=== PATIENT | male | born 1985 | race Caucasian/White ===

== ENCOUNTER 2022-02-10 13:01 | Emergency (ER) | payer MEDICAID, SELFPAY ==
[2022-02-10 13:07] VITALS: BP 130/85; PULSE 86; RESP 16; TEMP 37.1; O2SAT 98
[2022-02-10 13:30] VITALS: BP 124/76; PULSE 85; RESP 16; O2SAT 97
[2022-02-10 14:00] VITALS: BP 135/82; PULSE 82; RESP 16; O2SAT 98
--- NOTE | 2022-02-10 14:03 | ED.GENADULT ---
HPI - General Adult General Chief complaint: High Blood Pressure Stated complaint: High Blood Pressure,Headache,Short of Breath Time Seen by Provider: 02/10/22 13:16 History of Present Illness HPI narrative: This 36-year-old male comes in reporting elevated blood pressure from a dentist appointment that he had recently. He states that he has had a headache also and reports lots of anxiety. He arrives here with the initial blood pressure of a systolic value of 130. Repeat check shows a level of 124. He states that he is taking clonazepam 2 mg twice daily. He has been on this medicine for a long time and states that he use to take 2 mg 3 times daily. He does report lots of anxiety. He has also had an addiction to opiates in the past but denies using any of these now and also over the past few years. He does have an appointment with his primary physician next week and he has an appointment with a psychiatrist further out. Related Data Home Medications Medication Instructions Recorded Confirmed clonazepam 2 mg tablet 2 mg PO TID 02/10/22 02/10/22 pantoprazole 40 mg tablet,delayed 40 mg PO DAILY 02/10/22 02/10/22 release Previous Rx's Medication Instructions Recorded escitalopram oxalate 10 mg tablet 10 mg PO DAILY #30 tabs 02/10/22 (Lexapro) Allergies Allergy/AdvReac Type Severity Reaction Status Date / Time No Known Allergies Allergy Verified 02/10/22 13:14 Review of Systems Status of ROS: Reports: 10 or more systems reviewed and unremarkable except as noted in History and below Narrative: Constitutional: No fevers, no weight gain or loss. Eyes: No discharge. No vision changes. HENT: No congestion, no sore throat, no ear pain. Cardiovascular: No chest pain, no palpitations. Respiratory: No shortness of breath, no wheezes, no cough. Gastrointestinal: No abdominal pain, no vomiting, no diarrhea. Genitourinary: No dysuria, no hematuria. Musculoskeletal: Normal range of motion. Skin: No rashes, no pruritis. Neurological: No dizziness, weakness, sensory change, speech change. Endo/Heme/Allergies: No bruising or bleeding. No polydipsia. Pysch: no suicidality, no insomnia. He reports lots of anxiety. All other systems reviewed and are negative. PFSH PFSH Social History Smoking Status: Never smoker Do you use any of these nicotine containing products: None How often do you have a drink containing alcohol: never AUDIT-C Alcohol total score: 0 Non-prescribed substance use: denies use service: No Exam Narrative: Exam Narrative: Constitutional: Well-developed, well-nourished, no acute distress. HEENT: Normocephalic, atraumatic. Neck: Normal range of motion. Nontender. Supple. Heart: Intact distal pulses. Lungs: No chest discomfort. No wheezes, rhonchi, or rales. Abdomen: Nontender. Back: Normal range of motion. Extremities: Normal range of motion. No injury. Skin: Intact. No rash. Warm. No erythema or pallor. Neurologic: No altered sensation. No weakness. Alert and oriented. Psychiatric: No suicidality. No insomnia. He has anxiety symptoms that are sufficiently improved when taking his clonazepam 2 mg dose. Nursing notes and vitals signs are reviewed. Const: Vital Signs, click to edit/add: Vital Signs - 24 hr 02/10/22 13:07 02/10/22 13:30 Temperature 98.7 F Pulse Rate [Pulse Oximeter] 86 85 Respiratory Rate 16 16 Blood Pressure [[facility]] 130/85 124/76 Pulse Oximetry 98 97 Oxygen Delivery Me thod Room Air Room Air Course Vital Signs Vital signs: Initial Vital Signs Temperature 98.7 F 02/10/22 13:07 Temperature Source Temporal Artery Scan 02/10/22 13:07 Pulse Rate 86 02/10/22 13:07 Pulse Rhythm 02/10/22 13:07 Pulse Strength 3+ Normal 02/10/22 13:07 Respiratory Rate 16 02/10/22 13:07 Blood Pressure 130/85 02/10/22 13:07 Blood Pressure Mean 100 02/10/22 13:07 Blood Pressure Position Supine 02/10/22 13:07 Pulse Oximetry 98 02/10/22 13:07 Oxygen Delivery Method 02/10/22 13:07 Vital Signs Temperature 98.7 F 02/10/22 13:07 Pulse Rate 86 02/10/22 13:07 Respiratory Rate 16 02/10/22 13:07 Blood Pressure 130/85 02/10/22 13:07 Pulse Oximetry 98 02/10/22 13:07 Oxygen Delivery Method 02/10/22 13:07 Temperature 98.7 F 02/10/22 13:07 Pulse Rate 85 02/10/22 13:30 Respiratory Rate 16 02/10/22 13:30 Blood Pressure 124/76 02/10/22 13:30 Pulse Oximetry 97 02/10/22 13:30 Oxygen Delivery Method 02/10/22 13:30 Medical Decision Making MDM Narrative Medical decision making narrative: This patient comes in primarily with concern about elevated blood pressure as 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 This triggered his anxiety somewhat. Additionally he states that he had not taken his clonazepam and wonders if the increased anxiety related to that may also have caused his blood pressure to increase. I did describe diagnostic criteria for establishing add diagnosis of hypertension and stated that his blood pressure is spiking up at times but his baseline pressures are normal as evidenced here. I then had discussion amounting to 15 or 20 minutes regarding issues of anxiety and depression. I encouraged him to slowly wean off of the clonazepam as he is on rather large doses. He has already decreased by 2 mg daily. He is not on any other antidepressant medication. He does have an appointment with his primary physician next week so I did prescribe Lexapro which can be started and reviewed along the way by his primary doctor. He understands that another strategy may be a better fit for him but at least this will give some information along that way. Discharge Plan Discharge Clinical Impression: Anxiety Patient Disposition: Home, Self-Care Condition: Stable Additional Instructions: Take medication as prescribed. Follow up with MD appointments as scheduled or return if worsening. Prescriptions: New escitalopram oxalate [Lexapro] 10 mg tablet 10 mg PO DAILY Qty: 30 2RF No Action clonazepam 2 mg tablet 2 mg PO TID Label Comments: TAKE ONE TABLET BY MOUTH TWICE DAILY pantoprazole 40 mg tablet,delayed release (DR/EC) 40 mg PO DAILY Label Comments: TAKE ONE TABLET BY MOUTH ONCE DAILY Stand Alone Forms: [employer] Info Instructions
--- NOTE | 2022-02-10 14:18 | PC.NURSE ---
Patient was discharged. New prescription for Lexapro sent into [facility]. BP was much improved and headache and shortness of breath was gone when patient left. Has follow up with PCP next week. All questions answered and patient left ambulatory.
--- OUTSIDE RECORDS SUMMARY | 2022-02-10 14:39 | XMS_ITS | Encounter Summary ---
:1985 Author Organization [facility] Address [address] [place] [address] Care Team Providers Name Role Phone Elsewhere, Pcp Primary Care Provider Unavailable Reason for Visit Reason Comments Hand Pain Med Refill Encounter Details Date Type Department Care Team Description 08/21/2021 Nurse Triage Department of [facility] Charity Biggs nd Pain; Med Refill Medicine, Roger Chatman R.N. [facility], [facility], [place] [address] [place] [address] Social History Tobacco Use Types Packs/Day Years Used Date Smoking Tobacco: Former Cigarettes 1 Quit : 03/15/2017 Smokeless Tobacco: Former Chew Alcohol Use Standard Drinks/Week Comments Yes 0 (1 standard drink = 0.6 oz pure alcoho l) OCCASIONAL Sex Assigned at Date Recorded Male 10/17/2017 10:58 AM CDT documented as of this encounter Miscellaneous Notes Telephone Encounter - Charity Biggs R.N. - 08/21/2021 11:22 AM CDT Chief Complaint / Reason for Call Patient is a 35 y.o. male calling regarding Hand Pain and Med Refill. Assessment Concern: Pain med ([place]) refill, f/u visit with Dr. Mccullough in Orthopedics Calling to request: To speak with the person senior communications specialist for Orthopedics The recommended disposition is Other. He broke his left hand and had carpal tunnel surgery on both hands. Two fingers on his left hand lock up. He is requesting to speak with Orthopedics senior communications specialist. Advised to call during business hours to schedule an appointment. Patient was warm transferred to [facility] for further assistancegetting in touch with orthopedics. . documented in this encounter Plan of Treatment Not on filedocumented as of this encounter Visit Diagnoses Not on filedocumented in this encounter Care Teams Jr. Java Developer Relationship Specialty Start Date End Date Elsewhere, Pcp PCP - General Family Medicine 11/04/19 documented as of this encounter
--- OUTSIDE RECORDS SUMMARY | 2022-02-10 14:39 | XMS_ITS | Clinical Summary ---
:1985 Author Organization [facility] Address [address] [place] [id number] Care Team Providers Name Role Phone Elsewhere, Pcp Primary Care Provider Unavailable Source Comments Patient records contain information from all sites at [facility]. For routine questions regarding patient records, call [phone] during business hours, M-F 8:00 AM - 5:00 PM Central Time. Record requests for emergency care only can be directed to [phone] at any time.[facility] Allergies No known active allergies Medications Medication Sig Dispensed Refills Start Date End Date Status mometasone (NASONEX) 50 Administer 2 0 08/19/2013 Active mcg/actuation nasal sprays into each spray nostril daily. amphetamine-dextroamphe Take 30 mg by 0 03/09/2018 Active tamine (ADDERALL XR) 30 mouth daily. mg 24 hr capsule Paroex Oral Rinse 0.12 RINSE WITH 1 0 02/20/2019 Active % mouthwash CAPFUL FOR 30 SECONDS TWICE DAILY famotidine (PEPCID) 20 Take 20 mg by 0 03/20/2019 Active mg tablet mouth 2 (two) times a day. clonazePAM (KlonoPIN) 2 Take 1 tablet (2 28 tablet 1 0 Active mg tablet mg total) by mouth 2 (two) times a day for 14 days. clonazePAM (KlonoPIN) 2 Twice A Day 0 08/27/2010 Active mg tablet pantoprazole (PROTONIX) Take 40 mg by 0 Active 40 mg EC tablet mouth every morning before breakfast. ibuprofen Take 800 mg by 0 02/04/2021 Acti ve (ADVIL,MOTRIN) 800 mg mouth 3 (three) tablet times a day as needed. Pain Reliever Extra TAKE 1 TO 2 0 02/04/2021 Active Strength 500 mg tablet TABLETS(500-1000M G) BY MOUTH EVERY SIX HOURS NEEDED QNASL 80 mcg/actuation INHALE 1 SPRAY 0 03/17/2021 Active nasal spray INTO AFFECTED NOSTRIL(S) ONCE DAILY Ear Wax Removal Drops PLACE 5 DROPS 0 05/11/2021 Active 6.5 % otic solution INTO BOTH EARS 2 TIMES DAILY. ondansetron ODT PLACE 1 TABLET (4 0 05/11/2021 Active (ZOFRAN-ODT) 4 mg MG) ON THE TONGUE disintegrating tablet EVERY 8 HOURS IF NEEDED FOR NAUSEA/VOMITING. cholecalciferol, Take 1,000 Units 0 05/04/2021 Active vitamin D3, 25 mcg by mouth. (1,000 Unit) tablet NON FORMULARY Take 1 tablet by 0 Active mouth daily. HYDROcodone-acetaminoph Take 1 tablet by 15 tablet 0 2 Active en (NORCO) 5-325 mg per mouth every 6 tabletIndications: (six) hours as Prolonged Acute needed for pain Pain/Traumatic Injury Indication: Prolonged Acute Pain/Traumatic Injury. HYDROcodone-acetaminoph Take 1 tablet by 30 tablet 0 2 Active en (NORCO) 5-325 mg per mouth every 6 tabletIndications: (six) hours as Prolonged Acute needed for pain Pain/Traumatic Injury Indication: Prolonged Acute Pain/Traumatic Injury. hydrOXYzine (ATARAX) 25 TAKE 1 TABLET (25 0 10/07/19 22 Active mg tablet MG) BY MOUTH EVERY 6 HOURS IF NEEDED FOR SEASONAL ALLERGIES. fluorometholone (FML) INSTILL ONE DROP 0 09/13/2021 Active 0.1 % ophthalmic INTO RIGHT EYE 4 suspension TIMES A DAY FOR 1 WEEK, FOLLOWED BY 2 TIMES A DAY FOR 1 WEEK cyclobenzaprine TAKE ONE TABLET 0 10/06/2021 Active (FLEXERIL) 10 mg tablet BY MOUTH DAILY NEEDED FOR MUSCLE SPASM. ProAir HFA 90 INHALE 1-2 PUFFS 0 10/06/2021 Active mcg/actuation inhaler BY MOUTH EVERY 4 HOURS IF NEEDED FOR SHORTNESS OF BREATH. ibuprofen Take 1 tablet 30 tablet 1 10/20/2021 Activ e (ADVIL,MOTRIN) 800 mg (800 mg total) by tablet mouth every 8 (eight) hours as needed for pain. Active Problems Problem Noted Date Preoperative Exam 05/28/2021 Carpal Tunnel Syndrome Right 05/25/2021 Carpal Tunnel Syndrome Left 05/24/2021 Posttraumatic Stress Disorder Brief 06/01/2016 Dermatitis 08/04/2013 Dermatitis Seborrheic 07/22/2013 Migraine Headache 07/17/2013 Acne 02/27/2012 Attention Deficit With Hyperactivity Disorder 04/28/19 12 Overview: ADHD Anxiety Generalized Disorder 04/28/2011 Depression Major Recurrent 12/10/2010 Overview: Recurrent major depression NOS Last Assessment & Plan: He feels he is doing well and is not katrina ing the sertraline and the nortriptyline for some time now. He is taking only the clonazepam and Add erall, this is all he needs at this time. Abuse Tobacco Smoking 03/29/2010 Sinusitis 03/29/2010 Myopia 03/10/2010 Dependence Polysubstance 09/30/2009 Overview: Polysubstance dependence, unspecified Encounters Date Type Specialty Care Team Description 11/29/2021 Clinical Communication Ophthalmology Desean Medellin M.D. from Last 3 Months Immunizations Name Administration Dates Next Due DTP 04/15/1988, 07/17/1987, 05/14/1987, 02/04 MMR 04/15/1988 Polio, Unspecified 04/15/1988, 05/14/1987, 03/02/1987 Tdap 10/18/2020, 06/28/2018, 08/21/2017, 0503/2008 Family History Medical History Relation Name Comments Glaucoma Paternal Grandmother Relation Name Status Comments Paternal Grandmother Social History Tobacco Use Types Packs/Day Years Used Date Smoking Tobacco: Former Cigarettes 1 Quit : 03/15/2017 Smokeless Tobacco: Former Chew Alcohol Use Standard Drinks/Week Comments Yes 0 (1 standard drink = 0.6 oz pure alcoho l) OCCASIONAL Sex Assigned at Date Recorded Male 10/17/2017 10:58 AM CDT Last Filed Vital Signs Vital Sign Reading Time Taken Comments Blood Pressure 115/71 05/28/2021 9:31 AM CDT Pulse 76 05/28/2021 9:31 AM CDT Temperature 36.5 ??C (97.7 ??F) 05/28/2021 9:31 AM CDT Respiratory Rate 24 03/05/2021 1:48 PM SUPERVISOR BENZENE REFINING Oxygen Saturation 98% 11/04/2019 7:48 AM CDT Inhaled Oxygen Concentration - - Weight 82.9 kg (182 lb 12.2 oz) 05/28/2021 9:31 AM CDT Height 164.2 cm (5' 4.65) 05/28/2021 9:31 AM CDT Body Mass Index 30.75 05/28/2021 9:31 AM CDT Plan of Treatment Health Maintenance Due Date Last Done Comments HIV Screening 1985 Hepatitis B Vaccines (1 of 1985 3 - 3-dose series) Hepatitis C Screening 1985 Lipid (Cholesterol) 1985 Screening COVID-19 Vaccine (#1) 06/20/1987 Depression Monitoring 06/24/2021 02/23/2021 (PHQ-9) Influenza Vaccine (#1) 2021 DTaP,Tdap,and Td Vaccines 10/18/2030 10/18/2020, 06/28/2018 , (9 - Td or Tdap) 08/21/2017, Additional history exists Pneumococcal vaccine (0-64 Aged Out No lo nger eligible years) based on patient 's age to complete this topic Care Teams Body Coverer Relationship Specialty Start Date End Date Elsewhere, Pcp PCP - General Family Medicine 11/04/19
--- OUTSIDE RECORDS SUMMARY | 2022-02-10 14:39 | XMS_ITS | Encounter Summary ---
:1985 Author Organization [facility] Address [address] [place] [address] Care Team Providers Name Role Phone Elsewhere, Pcp Primary Care Provider Unavailable Reason for Referral Outpatient (Routine) - Pending Review Specialty Diagnoses / Procedures Referred By Contact Refer red To Contact Diagnoses Carpal Tunnel Syndrome Right Zee Arreguin, Procedures suture removal P.A.-C. [address] [place] [phone] Referral ID Status Reason Start Date Expiration Date Visits V isits Requested Authorized [id number] Pending 07/02/2021 07/02/2022 1 1 Review Reason for Visit Reason Comments Carpal Tunnel Post-op Follow-up Outpatient (Routine) - Closed Specialty Diagnoses / Procedures Referred By Contact Refer red To Contact Orthopedic Surgery Zee Arreguin, [facility] P.A.-C. [address] [place] [phone] [phone] Referral ID Status Reason Start Date Expiration Date Visits Requ ested Visits Authorized [id number] Closed 05/25/2021 05/25/2022 1 1 Encounter Details Date Type Department Care Team Description 07/02/2021 Office Visit Department of Zee Arreguin Carpal Kamari mary lou Syndrome Orthopedic Surgery in [place], PLyric-CGerman Right (Primary Dx) [place], [place] [address] [place] [phone] Social History Tobacco Use Types Packs/Day Years Used Date Smoking Tobacco: Former Cigarettes 1 Quit : 03/15/2017 Smokeless Tobacco: Former Chew Alcohol Use Standard Drinks/Week Comments Yes 0 (1 standard drink = 0.6 oz pure alcoho l) OCCASIONAL Sex Assigned at Date Recorded Male 10/17/2017 10:58 AM CDT documented as of this encounter Progress Notes Zee Arreguin P.A.-C. - 07/02/2021 9:15 AM CDT SUBJECTIVE Pain reported: REASON FOR FOLLOW-UP Tarik Adhikari is a 35 y.o. male who presents for follow-up of No chief complaint on file. and is under the care of ELSEWHERE, PCP. HISTORY OF PRESENT ILLNESS Patient is seen today for 2 week postoperative visit of a right carpal tunnel release by Dr. Mccullough on June 21. He is doing fairly well, does have some residual numbness in his long and index finger. He is not currently working, and not taking anything more than Tylenol and ibuprofen for pain. PHYSICAL EXAM Ortho Exam Inspection of the right palm shows a well-healed surgical incision sutures removed without difficulty no erythema or drainage. Mild edema and postsurgical ecchymosis. Fingers are sensate though slightly decreased at the tip of the long finger. Capillary refills less than 2 seconds. ASSESSMENT / PLAN #1 Carpal Tunnel Syndrome Right Patient can work on scar massage and desensitization, he is advised to avoid anything that causes pain such as heavy grasping gripping pushing or pulling or anything with vibration for the next 4 weeks. He will follow up with Dr. Mccullough in 1 month. All questions were answered. documented in this encounter Procedure Notes Gregg Anguiano - 07/02/2021 9:15 AM CDTAssociated Order(s): suture removal Post-Procedure Diagnose(s): Carpal Tunnel Syndrome Right Suture removal Date/Time: 07/02/2021 10:06 AM Performed by: Gregg Anguiano Authorized by: Zee Arreguin P.A.-C. PROCEDURE DETAILS Wound appearance: No signs of infection, good wound healing, clean, good approximation of wound edges and wound edges Number of sutures removed: 5 CONSENT Consent obtained: verbal Consent given by: patient [employer] All relevant documentation and testing were reviewed and available. All required blood products, implants, devices and or special equipment were made available as applicable. Pre-procedure verificationwas conducted and the correct site was marked if required. A fire risk assessment was done as applicable. The procedural time-out was conducted prior to performing the procedure and confirmed in a procedural pause. PRE PROCEDURE DETAILS Sutures were placed at [place] facility: no Indicaton: scheduled suture removal SEDATION / ANESTHESIA Anesthesia method: none POST PROCEDURE DETAILS Procedure completed successfully: yes Post-removal: Steri-Strips applied COMMENTS All sutures removed, patient tolerated well. The proximal part of the incision closest to the wrist slightly. Steri-strips applied. No concerns at this time. documented in this encounter Miscellaneous Notes Addendum Note - Zee Arreguin P.A.-C. - 07/02/2021 9:15 AM CDT Addended by: ZEE ARREGUIN on: 07/02/2021 06:43 PM Modules accepted: Orders Addendum Note - Zee Arreguin P.A.-C. - 07/02/2021 9:15 AM CDT Addended by: ZEE ARREGUIN on: 07/02/2021 07:51 PM Modules accepted: Orders documented in this encounter Plan of Treatment Not on filedocumented as of this encounter Procedures Procedure Name Priority Date/Time Associated Diagnosis Comme nts SUTURE REMOVAL Routine 07/02/2021 10:06 AM Carpal Tunnel Resul ts for this CDT Syndrome Right procedure are in the results section . documented in this encounter Results SUTURE REMOVAL (07/02/2021 10:06 AM CDT) Narrative [facility] - 07/02/2021 10:06 AM CDT Gregg Anguiano ? 07/02/2021 10:08 AM Suture removal Date/Time: 07/02/2021 10:06 AM Performed by: Gregg Anguiano Authorized by: Zee Arreguin P.A.- C. PROCEDURE DETAILS Wound appearance: ??No signs of infectio n, good wound healing, clean, good approximation of wound edges and wound e dges Number of sutures removed: ??5 CONSENT Consent obtained: verbal Consent given by: patient [employer] All relevant documentation and testing w ere reviewed and available. All required blood products, implants, devic es and or special equipment were made available as applicable. Pre-proced ure verification was conducted and the correct site was marked if required. A fire risk assessment was done as applicable. The procedural time-out w as conducted prior to performing the procedure and confirmed in a procedu ral pause. PRE PROCEDURE DETAILS Sutures were placed at [place] facility: no ?? Indicaton: scheduled suture removal ?? SEDATION / ANESTHESIA Anesthesia method: none POST PROCEDURE DETAILS Procedure completed successfully: yes ?? Post-removal: ??Steri-Strips applied COMMENTS All sutures removed, patient tolerated w ell. The proximal part of the incision closest to the wrist slightly. Steri-strips applied. No concerns at this time. Zee Arreguin P.A.-C. PROCEDURE/MINOR SURGICAL ORD ERABLES Performing Organization Address City/State/ZIP Code Phon e Number MMODAL [facility] NA documented in this encounter Visit Diagnoses Diagnosis Carpal Tunnel Syndrome Right - Primary documented in this encounter Care Teams Hollow Core Door Frame Assembler Relationship Specialty Start Date End Date Elsewhere, Pcp PCP - General Family Medicine 11/04/19 documented as of this encounter
--- OUTSIDE RECORDS SUMMARY | 2022-02-10 14:39 | XMS_ITS | Clinical Summary ---
:1985 Author Organization [facility] [place] [address] Care Team Providers Name Role Phone Dilcia Tate MD Primary Care Provider Faviola Machuca STUDIO DESIGNER Unavailable Unavailable Allergies No known active allergies Medications Medication Sig Dispensed Refills Start Date End Date Status clonazePAM (KLONOPIN) Take 1 tablet by 36 tablet 2 08/27/2019 Active 1 mg mouth up to BID and tabletIndications: 1/2 tablet by mouth Anxiety once daily dextroamphetamine-amph Take 30 mg by mouth 0 Active etamine (ADDERALL XR) once daily 30 mg Extended-Release capsule beclomethasone Inhale 160 mcg into 3 Each 0 08/04/2020 Active dipropionate (QNASL) affected nostril(s) 80 mcg/actuation once daily. HFAAIndications: Chronic rhinitis carbamide peroxide Place 5 Drops into 60 mL 5 05/11/2021 Active (DEBROX) 6.5 % otic both ears 2 times solutionIndications: daily. Bilateral hearing loss due to cerumen impaction ibuprofen (ADVIL; Take 800 mg by 0 Active MOTRIN) 800 mg tablet mouth every 6 hours if needed. pantoprazole TAKE ONE TABLET BY 90 Tablet 2 06/16/2021 Active (PROTONIX) 40 mg MOUTH ONCE DAILY delayed-release tabletIndications: Gastroesophageal reflux disease, unspecified whether esophagitis present albuterol HFA Inhale 1-2 Puffs by 1 Each 0 10/06/2021 Active (PRO-AIR; VENTOLIN; mouth every 4 hours PROVENTIL) 90 if needed for mcg/actuation Shortness Of inhalerIndications: Breath. Dyspnea, unspecified type acetaminophen Max acetaminophen 30 Tablet 0 12/15/2021 Active (TYLENOL) 325 mg dose: 4000mg in 24 tablet hrs. PRN hydrOXYzine HCL Take 1-2 Tablets 30 Tablet 2 12/15/2021 Active (ATARAX) 25 mg (25-50 mg) by mouth tabletIndications: every 6 hours if Seasonal allergies needed (seasonal allergies). gabapentin enacarbil Take 2 Tablets (600 30 Tablet 5 2 Active 300 mg mg) by mouth at TbERIndications: bedtime. Restless leg syndrome cyclobenzaprine Take 1 Tablet (10 30 Tablet 0 12/15/2021 Active (FLEXERIL) 10 mg mg) by mouth 3 tabletIndications: times daily if Chronic midline low needed for Muscle back pain with Spasm. Use daily as left-sided sciatica needed for muscle spasm ondansetron (ZOFRAN PLACE 1 TABLET (4 10 Tablet 0 01/10/2022 Active ODT) 4 mg MG) ON THE TONGUE disintegrating EVERY 8 HOURS IF tabletIndications: NEEDED FOR Nausea NAUSEA/VOMITING. Active Problems Problem Noted Date Personality disorder, unspecified 05/11/2021 Fatty liver 02/11/2021 Anxiety 11/10/2017 Mild episode of recurrent major depressive disorder Therapeutic drug monitoring 09/19/2017 Controlled substance agreement signed 07/21/2016 Overview: Signed 06/01/16 Faviola Machuca / psychiat eugene Attention deficit hyperactivity disorder (ADHD) 2016 Post traumatic stress disorder 06/01/2016 Microscopic hematuria 04/05/2016 Uncomplicated opioid dependence 01/08/2015 Other acne 06/01/2006 Irritable bowel syndrome 06/01/2006 Resolved Problems Problem Noted Date Resolved Date Moderate episode of recurrent major depressive disorder 05/0511/10/2017 Attention deficit hyperactivity disorder (ADHD) 05/25/2016 06/01/2016 Attention deficit hyperactivity disorder (ADHD), 02/03/2015 06/01/2016 predominantly inattentive type Anxiety 02/03/2015 06/01/2016 Bipolar affective disorder 01/08/2015 06/01/2016 Cellulitis 12/27/2011 07/11/2015 Dysuria 06/13/2008 07/11/2015 Bipolar disorder, unspecified 10/09/2007 01/08/2015 Opioid type dependence, unspecified 11/07/200607/2014 Encounters Date Type Specialty Care Team Description 01/07/2022 Refill Dilcia Tate MD Refil l Request (Ondansetron) 12/15/2021 Office Visit Votel, Wade aPz, Rachel rns (Legs constantly MD move at night i n bed, uses a weighted blanke t); Ear Problem (Wants checked for wax); Medicatio n Management (refills) 12/15/2021 Telephone Votel, Wade Paz, Prior Authorization (gabapentin edmund carbil 300 mg TbER) 12/15/2021 Telephone Votel, Wade Paz, Medic ation Problem (cyclobenzaprin e (FLEXERIL) 10 mg tablet/ga bapentin enacarbil 300 m g TbER ) 12/15/2021 Travel from Last 3 Months Immunizations Name Administration Dates Next Due DTP 04/15/1988, 07/17/1987, 05/14/1987, 02/04 MMR 04/15/1988 Oral Polio Vaccine 04/15/1988, 05/14/1987, 03/02/1987 Tdap 10/18/2020, 06/28/2018, 08/21/2017, 03/2008 Family History Medical History Relation Name Comments Allergies Sister 2 allergic to cold Relation Name Status Comments Brother Alive Father Alive Maternal Grandfather (Age old age) Mother Alive Paternal Grandfather (Age heart attack) Sister 1 Alive Sister 2 Social History Tobacco Use Types Packs/Day Years Used Date Former Smoker Cigarettes 0.1 4 Quit: 03/06/19 18 Smokeless Tobacco: Former User Snuff, Chew Tobacco Cessation: Counseling Given: Yes Comments: Ocassional Alcohol Use Standard Drinks/Week Comments Yes 0 (1 standard drink = 0.6 oz pure alcoho l) occassional Alcohol Habits Answer Date Recorded How often do you have a drink containing alcohol? 2-4 times a month 01/31/2020 How many drinks containing alcohol do you have on a 5 or 6 01/31/2020 typical day when you are drinking? How often do you have six or more drinks on one Not asked occasion? Comment: occassional 11/30/2020 Sex Assigned at Date Recorded Not on file Obstetrics History Last Filed Vital Signs Vital Sign Reading Time Taken Comments Blood Pressure 131/83 12/15/2021 10:08 AM CDT Pulse 59 12/15/2021 10:08 AM CDT Temperature 36.3 ??C (97.4 ??F) 06/21/2021 10:58 AM CDT Respiratory Rate 16 06/21/2021 11:30 AM CDT Oxygen Saturation 100% 12/15/2021 10:08 AM CDT Inhaled Oxygen Concentration - - Weight 80.4 kg (177 lb 3.2 oz) 12/15/2021 10:08 AM CDT Height 165.1 cm (5' 5) 12/15/2021 10:08 AM CDT Body Mass Index 29.49 12/15/2021 10:08 AM CDT Plan of Treatment Upcoming Encounters Date Type Specialty Care Team Description 02/17/2022 Office Visit Dilcia Tate MD [address] [facility] [address] [place], [place] [address] (Wo rk) Health Maintenance Due Date Last Done Comments COVID-19 vaccine series (#1) 06/20/1987 Influenza for age 9-49 11/04/2021 Lipids for age 35-44 2021 BMI (ht and wt on same day) for 12/15/2022 12/15/2021, 01/05, age 18+ 01/07/2021, Additional history exists Depression screening for age 12+ 12/15/2022 12/15/2021, 02/2022, 12/15/2021, Additional history exists Tetanus booster 10/18/2030 10/18/2020, 06/28/2018, 08/21/2017, Additional history exists Hepatitis C screening for age Completed 08/04/2020, 2019, 18-79 06/27/2016, Additional history exists Tdap Completed 10/18/2020, 06/28/2018, 08/21/2017, Additional history exists HIV for age 15-65 Completed 11/30/2020, 08/04/2020, 01/31/2020, Additional history exists Results Not on filefrom Last 3 Months Insurance Payer Benefit Plan / Subscriber ID Effective Dates Phone Addre ss Type Group CONSUELO CORDERO MA [id number] 2013-Present [address] [place] [address] [facility] [id number] 2021-Present [address] [place] [address] [place] [id number] 2011-Present [address] [address] [place] [address] INMATE,RICE Inmate Billing [birth year][address] [place] [address] [facility] (Home) [place] [address] Tarik Adhikari Motor Vehicle Self [address] (Home) [place] [address] Advance Directives Latest Code Status on File Code Status Date Activated Date Inactivated Comments Full Code 06/21/2021 7:19 AM 06/21/2021 2:05 PM Code Status Discussion: Reviewed Preferences Full Code 05/31/2021 12:53 PM 05/31/2021 5:06 PM Code Status Discussion: Reviewed Preferences Full Code 12/27/2011 11:50 AM 12/28/2011 2:15 PM Care Teams Assistant Front Office Manager Relationship Specialty Start Date End Date Dilcia Tate MD PCP - General Family Practice 04/04/[address] [place] [address] Faviola Machuca, STUDIO DESIGNER Psychiatry Nurse Practitioner 06/20/16
--- OUTSIDE RECORDS SUMMARY | 2022-02-10 14:39 | XMS_ITS | Encounter Summary ---
:1985 Author Organization [facility] Address [address] [place] [address] Care Team Providers Name Role Phone Elsewhere, Pcp Primary Care Provider Unavailable Reason for Visit Reason Comments Follow-up Post-op Carpal Tunnel Post-op Follow-up Carpal Tunnel Outpatient (Routine) - Closed Specialty Diagnoses / Procedures Referred By Contact Refer red To Contact Orthopedic Surgery Trista Garrido [facility] [address] [place] [address] Referral ID Status Reason Start Date Expiration Date Visits Requ ested Visits Authorized [id number] Closed 05/25/2021 05/25/2022 1 1 Encounter Details Date Type Department Care Team Description 08/05/2021 Office Visit Department of Antony Mccullough Release Carp al Tunnel Orthopedic Surgery in [place] Status Post (Primary [place], [place] [address] Dx) [address] [place] [phone] Social History Tobacco Use Types Packs/Day Years Used Date Smoking Tobacco: Former Cigarettes 1 Quit : 03/15/2017 Smokeless Tobacco: Former Chew Alcohol Use Standard Drinks/Week Comments Yes 0 (1 standard drink = 0.6 oz pure alcoho l) OCCASIONAL Sex Assigned at Date Recorded Male 10/17/2017 10:58 AM CDT documented as of this encounter Progress Notes Antony Mccullough M.D. - 08/05/2021 1:45 PM CDT HISTORY OF PRESENT ILLNESS The patient is a 35-year-old male, who had a right carpal tunnel release on 06/21/2021. The left side was done on 05/31/2021. They are both doing well, as far as no longer has numbness and tingling like before surgery. He can use them better. His content curator strength is better on the left than the right, which would be typical as his right side was just done 6 weeks ago. He still has pain in the hypothenar eminence, sometimes it goes into his small finger. That could be from the ulnar nerve, still could bejust healing after his carpal tunnel surgery. 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 He is probably doing more heavier lifting, gripping, grasping than the average person at 6 weeks after car pal tunnel, so they are sore by the end of the day. He does wear a glove on 1 side, which helps to some extent. OBJECTIVE PHYSICAL EXAMINATION Extremities/Right Hand: He moves all of his fingers well. Jockey Agent strength is fairly good. Incision is well healed. No redness, warmth or swelling. He is neurovascularly intact in the right upper extremity. ASSESSMENT / PLAN PLAN: I discussed with him about really being careful to avoid repetitive stuff that really aggravates things and causes pain, but as it heals he should feel better with it. I will refill his pain pills 1 more time. He does have a glove he got at [facility]. I recommended he go there to get another glove. I am not sure exactly where to get 1 other than where he got it. I will see him back for any other orthopedic problems in the future. documented in this encounter Plan of Treatment Not on filedocumented as of this encounter Visit Diagnoses Diagnosis Release Carpal Tunnel Status Post - Prim bryan documented in this encounter Care Teams Fitter Hand Relationship Specialty Start Date End Date Elsewhere, Pcp PCP - General Family Medicine 11/04/19 documented as of this encounter
--- OUTSIDE RECORDS SUMMARY | 2022-02-10 14:39 | XMS_ITS | Encounter Summary ---
:1985 Author Organization [facility] Address [address] [place] [address] Care Team Providers Name Role Phone Elsewhere, Pcp Primary Care Provider Unavailable Reason for Visit Reason Comments Medication Problem Encounter Details Date Type Department Care Team Description 07/02/2021 Nurse Triage Department of [facility] Marybeth Gray edication Problem Medicine in [facility] [place] R.N. [place] [address] [place] [phone] Social History Tobacco Use Types Packs/Day Years Used Date Smoking Tobacco: Former Cigarettes 1 Quit : 03/15/2017 Smokeless Tobacco: Former Chew Alcohol Use Standard Drinks/Week Comments Yes 0 (1 standard drink = 0.6 oz pure alcoho l) OCCASIONAL Sex Assigned at Date Recorded Male 10/17/2017 10:58 AM CDT documented as of this encounter Miscellaneous Notes Telephone Encounter - Marybeth Gray R.N. - 07/02/2021 6:51 PM CDT Chief Complaint / Reason for Call Patient is a 35 y.o. male calling regarding Medication Problem. Assessment Concern:Patient is calling with concerns regarding a problem with a prescription that was just sent in to the pharmacy. He states the pharmacy is closed and he is not able to pick it up. He is requesting it be sent to an alternate pharmacy. Patient is seen by Orthopedic surgery. Patient was warm transferred to [facility] at the [facility] switchboard for further assistance. documented in this encounter Plan of Treatment Not on filedocumented as of this encounter Visit Diagnoses Not on filedocumented in this encounter Care Teams Chief Executive Relationship Specialty Start Date End Date Elsewhere, Pcp PCP - General Family Medicine 11/04/19 documented as of this encounter
--- OUTSIDE RECORDS SUMMARY | 2022-02-10 14:39 | XMS_ITS | Encounter Summary ---
:1985 Author Organization [facility] Address [address] [place] [address] Care Team Providers Name Role Phone Elsewhere, Pcp Primary Care Provider Unavailable Encounter Details Date Type Department Care Team Description 11/29/2021 Clinical Communication Department of Desean Medellin Ophthalmology mauricio Head M.D. [place], [place] [address] [place] [phone] Social History Tobacco Use Types Packs/Day Years Used Date Smoking Tobacco: Former Cigarettes 1 Quit : 03/15/2017 Smokeless Tobacco: Former Chew Alcohol Use Standard Drinks/Week Comments Yes 0 (1 standard drink = 0.6 oz pure alcoho l) OCCASIONAL Sex Assigned at Date Recorded Male 10/17/2017 10:58 AM CDT documented as of this encounter Miscellaneous Notes Telephone Encounter - Faustina Walton - 11/29/2021 9:39 AM CDT Letter from 2019 sent to patient per request. Telephone Encounter - Lorena Melo - 11/29/2021 9:34 AM CDT Reason for Communication: Patient was seen in [address] Medellin. At this appointment he was given asheet allowing him to have a certain tint to his windows. He lost this sheet and would like to have it sent over to his address or to pick it up if possible. Current Can Nursing/Provider leave a detailed message?: yes Did the patient refuse triage through Nurse line? (for symptom based concerns): na Action Needed: Please advise Name of Medication (if relevant): na Please send all scheduling replies to scheduling pool. documented in this encounter Plan of Treatment Not on filedocumented as of this encounter Visit Diagnoses Not on filedocumented in this encounter Care Teams Licensed Pesticide Applicator Relationship Specialty Start Date End Date Elsewhere, Pcp PCP - General Family Medicine 11/04/19 documented as of this encounter
--- OUTSIDE RECORDS SUMMARY | 2022-02-10 14:39 | XMS_ITS | Encounter Summary ---
:1985 Author Organization [facility] Address [address] [place] [address] Care Team Providers Name Role Phone Elsewhere, Pcp Primary Care Provider Unavailable Reason for Referral Outpatient (Routine) - Closed Specialty Diagnoses / Procedures Referred By Contact Refer red To Contact Diagnoses Pain Hand Left Antony Mccullough M.D. [facility] Procedures DX Hand Left 3+ Views [address] [place] [address] Referral ID Status Reason Start Date Expiration Date Visits Requ ested Visits Authorized [id number] Closed 10/04/2021 10/04/2022 1 1 Reason for Visit Outpatient (Routine) - Closed Specialty Diagnoses / Procedures Referred By Contact Refer red To Contact Diagnoses Pain Hand Left Antony Mccullough M.D. [facility] Procedures DX Hand Left 3+ Views [address] [place] [address] Referral ID Status Reason Start Date Expiration Date Visits Requ ested Visits Authorized [id number] Closed 10/04/2021 10/04/2022 1 1 Encounter Details Date Type Department Care Team Description 10/20/2021 Hospital Encounter Department of Radiology Garrett Mccullough, Pain Hand Left in [facility] Murdock M.D. [address] [place] [phone] [place], [place] [phone] Social History Tobacco Use Types Packs/Day Years Used Date Smoking Tobacco: Former Cigarettes 1 Quit : 03/15/2017 Smokeless Tobacco: Former Chew Alcohol Use Standard Drinks/Week Comments Yes 0 (1 standard drink = 0.6 oz pure alcoho l) OCCASIONAL Sex Assigned at Date Recorded Male 10/17/2017 10:58 AM CDT documented as of this encounter Medications at Time of Discharge Medication Sig Dispensed Refills Start Date End Date amphetamine-dextroamphetam Take 30 mg by mouth 0 03/09/2018 ine (ADDERALL XR) 30 mg 24 daily. hr capsule cholecalciferol, vitamin Take 1,000 Units by 0 D3, 25 mcg (1,000 Unit) mouth. tablet clonazePAM (KlonoPIN) 2 mg Twice A Day 0 08/28/19 11 tablet cyclobenzaprine (FLEXERIL) TAKE ONE TABLET BY 0 0 10/06/2021 10 mg tablet MOUTH DAILY NEEDED FOR MUSCLE SPASM. Ear Wax Removal Drops 6.5 PLACE 5 DROPS INTO 0 % otic solution BOTH EARS 2 TIMES DAILY. famotidine (PEPCID) 20 mg Take 20 mg by mouth 2 0 03/20/2019 tablet (two) times a day. fluorometholone (FML) 0.1 INSTILL ONE DROP INTO 0 09/13/2021 % ophthalmic suspension RIGHT EYE 4 TIMES A DAY FOR 1 WEEK, FOLLOWED BY 2 TIMES A DAY FOR 1 WEEK HYDROcodone-acetaminophen Take 1 tablet by 15 tablet 0 2 11/2021 (NORCO) 5-325 mg per mouth every 6 (six) tabletIndications: hours as needed for Prolonged Acute pain Indication: Pain/Traumatic Injury Prolonged Acute Pain/Traumatic Injury. HYDROcodone-acetaminophen Take 1 tablet by 30 tablet 0 06/0 04/2021 (NORCO) 5-325 mg per mouth every 6 (six) tabletIndications: hours as needed for Prolonged Acute pain Indication: Pain/Traumatic Injury Prolonged Acute Pain/Traumatic Injury. hydrOXYzine (ATARAX) 25 mg TAKE 1 TABLET (25 MG) 0 10/06/2021 tablet BY MOUTH EVERY 6 HOURS IF NEEDED FOR SEASONAL ALLERGIES. ibuprofen (ADVIL,MOTRIN) Take 800 mg by mouth 0 1 04/07/2020 800 mg tablet 3 (three) times a day as needed. ibuprofen (ADVIL,MOTRIN) Take 1 tablet (800 mg 30 tablet 1 10/20/2021 800 mg tablet total) by mouth every 8 (eight) hours as needed for pain. mometasone (NASONEX) 50 Administer 2 sprays 0 mcg/actuation nasal spray into each nostril daily. NON FORMULARY Take 1 tablet by 0 mouth daily. ondansetron ODT PLACE 1 TABLET (4 MG) 0 2 (ZOFRAN-ODT) 4 mg ON THE TONGUE EVERY 8 disintegrating tablet HOURS IF NEEDED FOR NAUSEA/VOMITING. Pain Reliever Extra TAKE 1 TO 2 0 02/04/2021 Strength 500 mg tablet TABLETS(500-1000MG) BY MOUTH EVERY SIX HOURS NEEDED pantoprazole (PROTONIX) 40 Take 40 mg by mouth 0 mg EC tablet every morning before breakfast. Paroex Oral Rinse 0.12 % RINSE WITH 1 CAPFUL 0 mouthwash FOR 30 SECONDS TWICE DAILY ProAir HFA 90 INHALE 1-2 PUFFS BY 0 10/06/2021 mcg/actuation inhaler MOUTH EVERY 4 HOURS IF NEEDED FOR SHORTNESS OF BREATH. QNASL 80 mcg/actuation INHALE 1 SPRAY INTO 0 03/06 nasal spray AFFECTED NOSTRIL(S) ONCE DAILY documented as of this encounter Plan of Treatment Not on filedocumented as of this encounter Procedures Procedure Name Priority Date/Time Associated Comments Diagnosis DX HAND LEFT 3+ RAD - Routine 10/20/2021 10:44 Pain Hand Left Resul ts for this VIEWS (most inpatients AM CDT procedure a re in and all the results outpatients) section. documented in this encounter Results DX Hand Left 3+ Views (10/20/2021 10:44 AM CDT) Anatomical Region Laterality Modality Upper Extremity, Hand, Musculoskeletal RST LOS, Left Digital Radiography Musculoskeletal ARZ LOS, Muskuloskeletal FLA LOS Specimen (Source) Anatomical Collection Method Collection Time Re ceived Time Location / / Volume Laterality 10/20/2021 2:43 PM CDT Impressions 10/20/2021 2:45 PM CDT No prior comparison. Plate and screw fixation of second metacarpal fracture. No evidence of hardware complication. Narrative 10/20/2021 2:45 PM CDT EXAM: DX HAND LEFT 3+ VIEWS Procedure Note Sandip Eid M.D. - 10/20/2021Formatt ing of this note might be different from the original. EXAM: DX HAND LEFT 3+ VIEWS IMPRESSION: No prior comparison. Plate and screw fix ation of second metacarpal fracture. No evidence of hardware complication. Antony Mccullough M.D. [facility] documented in this encounter Visit Diagnoses Diagnosis Pain Hand Left documented in this encounter Care Teams Wire Rope Fabrication Supervisor Relationship Specialty Start Date End Date Elsewhere, Pcp PCP - General Family Medicine 11/04/19 documented as of this encounter
--- OUTSIDE RECORDS SUMMARY | 2022-02-10 14:39 | XMS_ITS | Encounter Summary ---
:1985 Author Organization [facility] Address [address] [place] [address] Care Team Providers Name Role Phone Elsewhere, Pcp Primary Care Provider Unavailable Reason for Visit Reason Comments Pain Appointment Request (Routine) - Closed Specialty Diagnoses / Procedures Referred By Contact Refer red To Contact Orthopedic Surgery Referral ID Status Reason Start Date Expiration Date Visits Requ ested Visits Authorized [id number] Closed 09/30/2021 09/30/2022 1 1 Encounter Details Date Type Department Care Team Description 10/20/2021 Office Visit Department of Antony Mccullough Pain Hand Le ft (Primary Orthopedic Surgery in M.D. Dx) [place], [place] [address] [place] [phone] Social History Tobacco Use Types Packs/Day Years Used Date Smoking Tobacco: Former Cigarettes 1 Quit : 03/15/2017 Smokeless Tobacco: Former Chew Alcohol Use Standard Drinks/Week Comments Yes 0 (1 standard drink = 0.6 oz pure alcoho l) OCCASIONAL Sex Assigned at Date Recorded Male 10/17/2017 10:58 AM CDT documented as of this encounter Progress Notes Antony Mccullough M.D. - 10/20/2021 11:00 AM CDT HISTORY OF PRESENT ILLNESS The patient is a 35-year-old male with left hand pain. His pain is more the PIP joints of the ring and long fingers. In the morning when he first tries to move his hand it is stiff, it is painful. He has trouble getting his hand going. After a while he can make a full fist and move better. Sometimes they click and catch, but the pain is dorsal around the PIP joint of those fingers, kind of goes up maybe toward his MP joints. He did fracture his index finger metacarpal in the past, had surgery on that. X-rays taken, I independently reviewed his x- rays. He has a healed fracture of the index finger metacarpal with a plate and screws dorsally. He has got degenerative changes and some deformity at the base of the long finger metacarpal where it articulates with the capitate, but the MP joints and PIP joints look good. Gets achy pain, burning pain. Again it is worse in the morning. OBJECTIVE PHYSICAL EXAMINATION Left Hand: He is able to make a full fist, maybe not quite fully with the index finger. Fully extends his fingers. No triggering. No tenderness over the A1 pulleys. PIP joints look good. No swelling, redness or warmth about the left hand. Good waiter/waitress cocktail lounge strength. Neurovascularly intact in the left hand. Scar over the dorsal aspect of his hand from previous surgery has well healed. ASSESSMENT / PLAN #1 Left hand pain and stiffness It does not seem like a typical stenosing tenosynovitis or trigger finger. It is more on the extensor side. Nothing surgical that would be helpful. I would recommend using an anti-inflammatory medication, getting his hand in some warm water in the morning to loosen things up so it gets more loose quicker in the morning. Some therapy in the future may be of benefit. I will see him back for any other orthopedic problems in the future. documented in this encounter Plan of Treatment Not on filedocumented as of this encounter Visit Diagnoses Diagnosis Pain Hand Left - Primary documented in this encounter Care Teams Substitute Teacher Relationship Specialty Start Date End Date Elsewhere, Pcp PCP - General Family Medicine 11/04/19 documented as of this encounter
--- OUTSIDE RECORDS SUMMARY | 2022-02-10 14:39 | XMS_ITS | Encounter Summary ---
:1985 Author Organization [facility] Address [address] [place] [address] Care Team Providers Name Role Phone Elsewhere, Pcp Primary Care Provider Unavailable Encounter Details Date Type Department Care Team Description 07/02/2021 Nurse Triage Department of Family Stacey Benitez R.N. Medicine, [facility], [facility] [address] [place] [address] [facility] [phone] Social History Tobacco Use Types Packs/Day Years Used Date Smoking Tobacco: Former Cigarettes 1 Quit : 03/15/2017 Smokeless Tobacco: Former Chew Alcohol Use Standard Drinks/Week Comments Yes 0 (1 standard drink = 0.6 oz pure alcoho l) OCCASIONAL Sex Assigned at Date Recorded Male 10/17/2017 10:58 AM CDT documented as of this encounter Miscellaneous Notes Telephone Encounter - Stacey Benitez R.N. - 07/02/2021 7:29 PM CDT Patient is calling for assistance to get in touch with the Orthopedic Surgeon on-call. While attempting to get him in contact with [employer], he received a call from Trista Kay, which he states will resolve this issue for him. documented in this encounter Plan of Treatment Not on filedocumented as of this encounter Visit Diagnoses Not on filedocumented in this encounter Care Teams Tug Boat Captain Relationship Specialty Start Date End Date Elsewhere, Pcp PCP - General Family Medicine 11/04/19 documented as of this encounter
--- OUTSIDE RECORDS SUMMARY | 2022-02-10 14:39 | XMS_ITS | Encounter Summary ---
:1985 Author Organization [facility] Address [address] [place] [address] Care Team Providers Name Role Phone Elsewhere, Pcp Primary Care Provider Unavailable Reason for Visit Reason Comments Post-op Problem Encounter Details Date Type Department Care Team Description 07/02/2021 Nurse Triage Department of [facility] Kanwal Gomez Post-op Problem Medicine, [place] [facility], in [place], [facility] [address] [place], [place] [address] [address] [place] [address] [facility] [phone] Social History Tobacco Use Types Packs/Day Years Used Date Smoking Tobacco: Former Cigarettes 1 Quit : 03/15/2017 Smokeless Tobacco: Former Chew Alcohol Use Standard Drinks/Week Comments Yes 0 (1 standard drink = 0.6 oz pure alcoho l) OCCASIONAL Sex Assigned at Date Recorded Male 10/17/2017 10:58 AM CDT documented as of this encounter Miscellaneous Notes Telephone Encounter - Kanwal Gomez R.N. - 07/02/2021 5:49 PM CDT Chief Complaint / Reason for Call Patient is a 35 y.o. male calling regarding Post-op Problem. Assessment Concern: [facility] recently had carpal tunnel surgery on both hands. [facility] just had stitches taken outby Ortho today. [facility] has used hand when he was told to rest them. [facility] is noting a throb in right and left hands. [facility] would like to speak with on-call provider regarding pain managment. Spoke with [facility] sent message to on-call Ortho provider to contact patient, informed patient. No further triage needs. documented in this encounter Plan of Treatment Not on filedocumented as of this encounter Visit Diagnoses Not on filedocumented in this encounter Care Teams Winder Hand Relationship Specialty Start Date End Date Elsewhere, Pcp PCP - General Family Medicine 11/04/19 documented as of this encounter
--- OUTSIDE RECORDS SUMMARY | 2022-02-10 14:40 | XMS_ITS | Encounter Summary ---
:1985 Author Organization [facility] Address [address] [place] [address] Care Team Providers Name Role Phone Elsewhere, Pcp Primary Care Provider Unavailable Reason for Referral Outpatient (Routine) - Pending Review Specialty Diagnoses / Procedures Referred By Contact Refer red To Contact Diagnoses Release Carpal Tunnel Status Post Jo-Ann Aggarwal, Procedures suture removal [place] [address] [place] [address] Referral ID Status Reason Start Date Expiration Date Visits V isits Requested Authorized [id number] Pending 06/11/2021 06/11/2022 1 1 Review Reason for Visit Reason Comments Carpal Tunnel Post-op Follow-up Suture / Staple Removal Outpatient (Routine) - Closed Specialty Diagnoses / Procedures Referred By Contact Refer red To Contact Orthopedic Surgery Trista Garrido, [facility] [address] [place] [address] Referral ID Status Reason Start Date Expiration Date Visits Requ ested Visits Authorized [id number] Closed 05/25/2021 05/25/2022 1 1 Encounter Details Date Type Department Care Team Description 06/11/2021 Office Visit Department of Jo-Ann Aggarwal arpal Tunnel Orthopedic Surgery in [place] Status Post ([facility] [place], [place] [address]) [address] [place] [id number] [phone] Social History Tobacco Use Types Packs/Day Years Used Date Smoking Tobacco: Former Cigarettes 1 Quit : 03/15/2017 Smokeless Tobacco: Former Chew Alcohol Use Standard Drinks/Week Comments Yes 0 (1 standard drink = 0.6 oz pure alcoho l) OCCASIONAL Sex Assigned at Date Recorded Male 10/17/2017 10:58 AM CDT documented as of this encounter Progress Notes Jo-Ann Aggarwal P.A.-C. - 06/11/2021 9:00 AM CDT CHIEF COMPLAINT/REASON FOR VISIT Two week postop recheck of a left open carpal tunnel release performed by Dr. Antony Mccullough on 05/31/2021. HISTORY OF PRESENT ILLNESS Tarik Adhikari is a very pleasant male who presents today for 2-week postop recheck of a left opencarpal tunnel release performed by Dr. Antony Mccullough on 05/31/2021. He is doing well. Denies any complications with the incision. No fever, chills, night sweats, nausea, or vomiting. He continues to havenumbness and tingling in his left hand. He reports this as severe. This has been present since he had a wrist fracture and surgery in the [facility] in January 2021. He does have some swelling in the palm. He has been icing and elevating. He used [place] after this surgery and that did help some with his pain. He has been advised to take Gabapentin in the past for his nerve pain but did not want to take that. He has been using Nervive a nerve supplement. He has used a compression glove in the past and would like to get a new one of those. He is scheduled to have right carpal tunnel release with Dr. Mccullough on 06/21/2021. PHYSICAL EXAMINATION Musculoskeletal examination of the left palm reveals a well-healing, well- approximated palmar incision. This is clean, dry and intact without signs of infection. Moderate swelling of the left palm. Neurovascularly intact distally, he reports subjective numbness of the thumb, index, middle and ring fingers. Capillary refill less than 2 seconds. IMPRESSION/REPORT/PLAN Two weeks status post left open carpal tunnel release performed by Dr. Antony Mccullough. PLAN: Mr. Adhikari is doing fairly well. We did review his activity recommendations and he will increase activity with this hand as tolerated. We discussed scar massage he can perform that daily. 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 We have discussed that the best medication for this is generally in nerve medication such as gabapentin or Lyrica. He is not interested in these medications at this time. He will continue with his current regimen. We have discussed continuing with ice and elevation. He will seek a compression glove through occupational therapy, he can contact us if he needs an order for this. All questions were answered to his satisfaction. He is scheduled for his right side carpal tunnel release on 06/21/2021. documented in this encounter Procedure Notes Ann Morris L.P.N. - 06/11/2021 9:00 AM CDTAssociated Order(s): suture removal Post-Procedure Diagnose(s): Release Carpal Tunnel Status Post Suture removal Date/Time: 06/11/2021 9:22 AM Performed by: Ann Morris L.P.N. Authorized by: Jo-Ann Aggarwal P.A.-C. PROCEDURE DETAILS Wound appearance: No signs of infection, good wound healing, clean and good approximation of wound edges Number of sutures removed: 5 CONSENT Consent obtained: verbal Consent given by: patient The benefits, risks and alternatives to the procedure and the potential need for sedation or anesthesia as well as the names, roles, and responsibilities of healthcare team members performing significant interventional tasks were discussed with the patient and/or decision maker. UNIVERSAL PROTOCOL All relevant documentation and testing [...] PRE PROCEDURE DETAILS Sutures were placed at [place] facility: jose Indicaton: scheduled suture removal Location: Upper extremity Upper extremity location: Hand Hand location: Left hand SEDATION / ANESTHESIA Anesthesia method: none POST PROCEDURE DETAILS Procedure completed successfully: yes Complications: bleeding Complications comment: Imbedded proximal suture had small amount of bleeding after removal Post-removal: No dressing applied documented in this encounter Plan of Treatment Not on filedocumented as of this encounter Procedures Procedure Name Priority Date/Time Associated Diagnosis Comme nts SUTURE REMOVAL Routine 06/11/2021 9:22 AM Release Carpal Naheed l Results for this CDT Status Post procedure are i n the results section . documented in this encounter Results SUTURE REMOVAL (06/11/2021 9:22 AM CDT) Narrative [facility] - 06/11/2021 9:22 AM CDT Ann Morris L.P.N. ? 06/11/2021 ??4:19 PM Suture removal Date/Time: 06/11/2021 9:22 AM Performed by: Ann Morris L.P.N. Authorized by: Jo-Ann Aggarwal P.A. -CGerman PROCEDURE DETAILS Wound appearance: ??No signs of infectio n, good wound healing, clean and good approximation of wound edges Number of sutures removed: ??5 CONSENT Consent obtained: verbal Consent given by: patient The benefits, risks and alternatives to the procedure and the potential need for sedation or anesthesia as well as the names, roles, and responsibilities of healthcare team memb ers performing significant interventional tasks were discussed with the patient and/or decision maker. UNIVERSAL PROTOCOL All relevant documentation and testing [...] PRE PROCEDURE DETAILS Sutures were placed at [place] facility: no ?? Indicaton: scheduled suture removal ?? Location: ??Upper extremity Upper extremity location: ??Hand Hand location: ??Left hand SEDATION / ANESTHESIA Anesthesia method: none POST PROCEDURE DETAILS Procedure completed successfully: yes ?? Complications: bleeding ?? Complications comment: ??Imbedded proxim al suture had small amount of bleeding after removal Post-removal: ??No dressing applied Jo-Ann Aggarwal P.A.-C. PROCEDURE/MINOR SURGICAL OR DERABLES Performing Organization Address City/State/ZIP Code Phon e Number MMODAL MMODAL NA documented in this encounter Visit Diagnoses Diagnosis Release Carpal Tunnel Status Post - Prim bryan documented in this encounter Care Teams Bass Singer Relationship Specialty Start Date End Date Elsewhere, Pcp PCP - General Family Medicine 11/04/19 documented as of this encounter
--- OUTSIDE RECORDS SUMMARY | 2022-02-10 14:40 | XMS_ITS | Encounter Summary ---
:1985 Author Organization [facility] Address [address] [place] [address] Care Team Providers Name Role Phone Elsewhere, Pcp Primary Care Provider Unavailable Encounter Details Date Type Department Care Team Description 05/28/2021 Lab Department of [facility] Trista Garrido, Carpal Tunnel Syndrome Left; Medicine, [facility] [place] Carpal Tunnel Syndrome Right Building, in [address] [place], [place] [address] [facility] [address] [place] [address] [facility] [phone] Social History Tobacco Use Types Packs/Day Years Used Date Smoking Tobacco: Former Cigarettes 1 Quit : 03/15/2017 Smokeless Tobacco: Former Chew Alcohol Use Standard Drinks/Week Comments Yes 0 (1 standard drink = 0.6 oz pure alcoho l) OCCASIONAL Sex Assigned at Date Recorded Male 10/17/2017 10:58 AM CDT documented as of this encounter Plan of Treatment Not on filedocumented as of this encounter Procedures Procedure Name Priority Date/Time Associated Diagnosis Comme nts SARS CORONAVIRUS-2 Routine 05/28/2021 10:22 AM Carpal Tunnel R esults for this RNA, V CDT Syndrome Left procedure are in Carpal Tunnel the results Syndrome Right section. documented in this encounter Results SARS Coronavirus-2 RNA, V Asymptomatic (05/28/2021 10:22 AM CDT) [facility] Method Time Signature SARS-CoV-2 Swab, 05/29/2021 [facility] Specimen Nasopharynx 12:01 AM Source CDT SARS CoV-2 Undetected Undetected 05/29/2021 MKTO RNA, TMA 12:01 AM CDT Comment: SARS-CoV-2 RNA absent. This result does not rule out COVID-19 in the patient, as the sensitivity of the test depends o n the timing of the specimen collection and the quality of the specim en. Result should be correlated with patient's history and clinical presentat ion. ----ADDITIONAL INFORMATION---- This molecular amplification test was pe rformed using the Aptima SARS-CoV-2 assay ([employer] on the [employer] Sys tem under emergency use authorization (EUA) by the U.S. Food and Drug Administ ration. Fact sheets for this EUA assay can be fo und at the following links: For Healthcare Providers: https://www.[employer] a.gov/media/412882/download For Patients: https://www.fda.gov/media/ 778089/download Specimen Anatomical Collection Method Collection Time Receive d Time (Source) Location / / Volume Laterality Varies 05/28/2021 10:22 05/28/2021 4:44 (Nasopharynx) AM CDT PM CDT Trista Garrido P.A.-C. LAB MICROBIOLOGY - GENERAL O RDERABLES Performing Organization Address City/State/ZIP Code Phon e Number [facility]- [address] [place] [address] [place] [address] [address] documented in this encounter Visit Diagnoses Diagnosis Carpal Tunnel Syndrome Left Carpal Tunnel Syndrome Right documented in this encounter Additional Health Concerns Infection Onset Date Last Indicated Resolved Time COVID19 Pending 05/27/2021 05/28/2021 05/29/2021 12:02 AM CDT documented as of this encounter Care Teams Marketing Traffic Coordinator Relationship Specialty Start Date End Date Elsewhere, Pcp PCP - General Family Medicine 11/04/19 documented as of this encounter
--- OUTSIDE RECORDS SUMMARY | 2022-02-10 14:40 | XMS_ITS | Encounter Summary ---
:[address] [facility] Address [address] [place] [address] Care Team Providers Name Role Phone Elsewhere, Pcp Primary Care Provider Unavailable Reason for Visit Reason Comments Pre-op Exam Outpatient (Routine) - Closed Specialty Diagnoses / Procedures Referred By Contact Refer red To Contact Family Medicine Diagnoses Carpal Tunnel Syndrome Left Carpal Tunnel Syndrome Right Trista Garrido, [facility] [address] [place] [address] Referral ID Status Reason Start Date Expiration Date Visits Requ ested Visits Authorized [id number] Closed 05/25/2021 05/25/2022 1 1 Encounter Details Date Type Department Care Team Description 05/28/2021 Office Visit Department of [facility] Donita Cordero eoperative Exam (Primary Dx); Medicine, [facility], [facility] Carpal Tunnel Syndrome Left; Clinic, in [place], [address] Carpal Tunnel Syndrome Right; [place], [place] Dependence Polysubstance (HC C); [address] [address] Depression Major Recurrent (HCC) [place], [place] [phone] (Work) [phone] Social History Tobacco Use Types Packs/Day Years Used Date Smoking Tobacco: Former Cigarettes 1 Quit : 03/15/2017 Smokeless Tobacco: Former Chew Alcohol Use Standard Drinks/Week Comments Yes 0 (1 standard drink = 0.6 oz pure alcoho l) OCCASIONAL Sex Assigned at Date Recorded Male 10/17/2017 10:58 AM CDT documented as of this encounter Last Filed Vital Signs Vital Sign Reading Time Taken Comments Blood Pressure 115/71 05/28/2021 9:31 AM CDT Pulse 76 05/28/2021 9:31 AM CDT Temperature 36.5 ??C (97.7 ??F) 05/28/2021 9:31 AM CDT Respiratory Rate - - Oxygen Saturation - - Inhaled Oxygen Concentration - - Weight 82.9 kg (182 lb 12.2 oz) 05/28/2021 9:31 AM CDT Height 164.2 cm (5' 4.65) 05/28/2021 9:31 AM CDT Body Mass Index 30.75 05/28/2021 9:31 AM CDT documented in this encounter Patient Instructions Patient InstructionsDonita Cordero P.A.-C. - 05/28/2021 9:30 AM CDT CURRENT MEDICATIONS Current Outpatient Medications Medication Sig ??? amphetamine-dextroamphetamine (ADDERALL XR) 30 mg 24 hr capsule DO NOT TAKE THE DAY OF SURGERY ??? cholecalciferol, vitamin D3, 25 mcg (1,000 Unit) tablet DO NOT TAKE FOR 7 DAYS BEFORE SURGERY ??? clonazePAM (KlonoPIN) 2 mg tablet CAN TAKE THE DAY OF SURGERY ? ondansetron ODT (ZOFRAN-ODT) 4 mg disintegrating tablet CAN TAKE IT ??? Pain Reliever Extra Strength 500 mg tablet CAN TAKE ACETAMINOPHEN OR TYLENOL ??? pantoprazole (PROTONIX) 40 mg EC tablet CAN TAKE ??? clonazePAM (KlonoPIN) 2 mg tablet CAN TAKE ??? Ear Wax Removal Drops 6.5 % otic solution PLACE 5 DROPS INTO BOTH EARS 2 TIMES DAILY. ??? famotidine (PEPCID) 20 mg tablet CAN TAKE IT ??? ibuprofen (ADVIL,MOTRIN) 800 mg tablet DO NOT TAKE FOR 7 DAYS BEFORE SURGEERY ??? mometasone (NASONEX) 50 mcg/actuation nasal spray Administer 2 sprays into each nostril daily. ??? Paroex Oral Rinse 0.12 % mouthwash CAN TAKE ??? QNASL 80 mcg/actuation nasal spray CAN TAKE ??? DO NOT TAKE ANY SUPPLEMENT, VITAMINS, ASPIRIN, IBUPROFEN FOR 7 DAYS BEFORE THE SURGERY. documented in this encounter H&P Notes Donita Cordero P.A.-C. - 05/28/2021 9:30 AM CDT Tarik Adhikari [phone] SUBJECTIVE CHIEF COMPLAINT/REASON FOR VISIT Pre-op Exam. Preoperative consultation. HISTORY OF PRESENT ILLNESS Tarik Adhikari is a 35 y.o. male who presents to the clinic today for a preoperative exam prior tobilateral carpal tunnel surgery on 05/31/21 and 06/[address] Mccullough at [facility]. There have been no prior complications or problems with anesthesia. There is no family medical history of problems with anesthesia or malignant hyperthermia. The patient has no known bleeding or clotting disorders. There are no problems with neck range of motion. The patient has no been diagnosed with sleep apnea.The patient does not have diabetes . There are no sensitivities to tape or latex. No problems swallowing or current loose teeth. The patient does not wear dentures. The patient does not use blood thinners. The patient does not routinely use NSAIDs. The patient is not smoker quit about 8 years ago,. The patient is not taking a beta demi. There is no need for prophylactic antibiotics. The patient has no problems walking 4 blocks or climbing 2 flights of stairs. Patient denies any recent illness including cough, cold, or shortness of breath. Major predictors of cardiovascular risk: None. History is NEGATIVE for Acute myocardial infarction (within 7 days), Recent myocardial infarction (within 8 to 30 days) and evidence of ischemic risk as determined by symptoms or non-invasive testing, Unstable angina, Stable angina, Decompensated heart failure, High-grade atrioventricular block, Symptomatic ventricular arrhythmia with underlying heart disease, Supraventricular arrhythmia with poorly controlled ventricular rate and Severe heart valve disease. Intermediate predictors of cardiovascular risk: None. History is NEGATIVE for Mild angina, Previous myocardial infarction as determined from history of from the presence of pathological Q waves, Compensated heart failure or a previous history of heart failure, Diabetes mellitus and Reduced renal function (SCr > 2 or > 50% reduction in renal function from baseline). Minor predictors of cardiovascular risk: None. History is NEGATIVE for Advanced age, Abnormal ECG (left ventricular hypertrophy, left bundle branchblock, ST-T segment abnormalities), Rhythm other than sinus, Low functional capacity, History of CVAand Uncontrolled hypertension. Patient denies any recent illness including cough, cold, or shortness of breath. REVIEW OF SYSTEMS Skin: Positive for skin rash. Gastrointestinal: Positive for abdominal (belly) pain or cramping, diarrhea and heartburn. Musculoskeletal: Broke left hand. Psychiatric/Behavioral: Positive for feeling nervous, anxious, or on edge in past two weeks. The following systems were negative: Constitutional, Eyes, ENT, CV, Respiratory, , Hematologic, Musculoskeletal, Neuro MEDICAL HISTORY Patient Active Problem List Diagnosis ??? Depression Major Recurrent (HCC) ??? Attention Deficit With Hyperactivity Disorder ??? Dependence Polysubstance (HCC) ??? Abuse Tobacco Smoking ??? Acne ??? Anxiety Generalized Disorder ??? Dermatitis ??? Dermatitis Seborrheic ??? Migraine Headache ??? Myopia ??? Sinusitis ??? Posttraumatic Stress Disorder Brief ??? Carpal Tunnel Syndrome Left ??? Carpal Tunnel Syndrome Right ??? Preoperative Exam SURGICAL HISTORY No past surgical history on file. FAMILY HISTORY Family History Problem Relation Age of Onset ??? Glaucoma Paternal Grandmother SOCIAL HISTORY Social History Tobacco Use ??? Smoking status: Former Smoker Packs/day: 1.00 Types: Cigarettes Quit date: 03/15/2017 Years since quittin.2 ??? Smokeless tobacco: Former User Types: Chew Vaping Use ??? Vaping Use: never used Substance Use Topics ??? Alcohol use: Yes Comment: OCCASIONAL CURRENT MEDICATIONS Current Outpatient Medications Medication Sig ??? amphetamine-dextroamphetamine (ADDERALL XR) 30 mg 24 hr capsule Take 30 mg by mouth daily. ??? cholecalciferol, vitamin D3, 25 mcg (1,000 Unit) tablet Take 1,000 Units by mouth. ??? clonazePAM (KlonoPIN) 2 mg tablet Twice A Day ??? NON FORMULARY Take 1 tablet by mouth daily. ??? ondansetron ODT (ZOFRAN-ODT) [address] 1 TABLET (4 MG) ON THE TONGUE EVERY 8 HOURS IF NEEDED FOR NAUSEA/VOMITING. ??? Pain Reliever Extra Strength 500 mg tablet TAKE 1 TO 2 TABLETS(500-1000MG) BY MOUTH EVERY SIX HOURS NEEDED ??? pantoprazole (PROTONIX) 40 mg EC tablet Take 40 mg by mouth every morning before breakfast. ??? clonazePAM (KlonoPIN) 2 mg tablet Take 1 tablet (2 mg total) by mouth 2 (two) times a day for 14days. ??? Ear Wax Removal Drops 6.5 % otic solution PLACE 5 DROPS INTO BOTH EARS 2 TIMES DAILY. ??? famotidine (PEPCID) 20 mg tablet Take 20 mg by mouth 2 (two) times a day. ??? ibuprofen (ADVIL,MOTRIN) 800 mg tablet Take 800 mg by mouth 3 (three) times a day as needed. ??? mometasone (NASONEX) 50 mcg/actuation nasal spray Administer 2 sprays into each nostril daily. ??? Paroex Oral Rinse 0.12 % mouthwash RINSE WITH 1 CAPFUL FOR 30 SECONDS TWICE DAILY ??? QNASL 80 mcg/actuation nasal spray INHALE 1 SPRAY INTO AFFECTED NOSTRIL(S) ONCE DAILY ??? UNABLE TO FIND Take by mouth daily. Med Name: Nerve ALLERGIES/CONTRAINDICATIONS No Known Allergies OBJECTIVE VITAL SIGNS BP 115/71 (BP Location: Right arm, Patient Position: Sitting, Cuff Size: Large) Pulse 76 Temp 36.5 ??C (Temporal) Ht 164.2 cm Wt 82.9 kg BMI 30.75 kg/m?? PHYSICAL EXAMINATION General: Patient is alert and oriented, in no acute distress. Capable of full communication without difficulty. Patient is polite and cooperative. Appropriately dressed and normal hygiene. HEENT: Normocephalic, atraumatic. Pupils are equal, round and reactive to light. Auditory canals patent. Tympanic membranes are pearly powell with adequate visualization of bony prominences. Nares are patent. Oropharynx without lesion of mucosa. Pharynx rises symmetrically without exudate. Dentition grossly intact. Neck: No lymphadenopathy. No thyroid enlargement or nodules. No carotid bruit. Neck is supple with normal range of motion. Heart: Regular rate and rhythm. No murmurs, gallops or rubs noted. No S3, no S4. Lungs: Regular rate and rhythm of respirations. Clear to auscultation bilaterally. No wheezing or crackles. No accessory muscles of respiration noted. Abdomen: Nontender to palpation. No hepatosplenomegaly. No mass. Normal bowel sounds in all 4 quadrants. Musculoskeletal: Normal range of motion in all extremities. Extremities: No neurovascular compromise. No cyanosis or clubbing. No edema. Skin: Numerous tattoos on neck, and extremities. No rashes or wounds. No evidence of excessive bruising. Neurologic: Cranial nerves 2-12 are grossly intact. Deep tendon reflexes are 2+ bilaterally in patellar tendons. Mental: Affect is normal. Thought process is congruent. Speech is fluent. Good eye contact and well engaged with the visit. DIAGNOSTICS: No results found for this or any previous visit. IMPRESSION/REPORT/PLAN Diagnosis Plan 1. Preoperative Exam 2. Carpal Tunnel Syndrome Left Primary Care - MENG consult (clinic) 3. Carpal Tunnel Syndrome Right Primary Care - MENG consult (clinic) 4. Dependence Polysubstance (HCC) 5. Depression Major Recurrent (HCC) 1. Cardiac risk: ASA I 2. Pulmonary risk: ASA I 3. DVT risk: ASA I 4. Diabetes: ASA I 5. Delirium risk: ASA II 6. Perioperative medication management: Patient advised to stop nonsteroidal anti-inflammatory medications for 1 week prior to surgery. 7. Code status: unknown Patient is medically acceptable for planned procedure. The patient is deemed to have a medically satisfactory risk profile for the planned surgical procedure, and of low risk of a jerson-operative cardiac event. Patient is capable of >4 METS activity without unusual dyspnea or chest pain, no additional cardiac testing is needed. We reviewed medications to avoid taking prior to the procedure, including avoiding aspirin, NSAIDs, and herbal medications for at least 1 week prior to surgery. A print out with his current meds and which ones he cannot take was provided to the patient. The patient knows to be fasting after midnight the day of surgery; he can take her routine meds after surgery. Further preoperative and postoperative recommendations will be given prior to surgery by surgeon. Patient will followup with me as needed. Donita Cordero P.A.-C. documented in this encounter Miscellaneous Notes Assessment & Plan Note - Donita Cordero P.A.-C. - 05/28/2021 1:17 PM CDT Associated Problem(s): Depression Major Recurrent (HCC) He feels he is doing well and is not taking the sertraline and the nortriptyline for some time now. He is taking only the clonazepam and Adderall, this is all he needs at this time. documented in this encounter Plan of Treatment Not on filedocumented as of this encounter Visit Diagnoses Diagnosis Preoperative Exam - Primary Carpal Tunnel Syndrome Left Carpal Tunnel Syndrome Right Dependence Polysubstance (HCC) Depression Major Recurrent (HCC) documented in this encounter Additional Health Concerns Infection Onset Date Last Indicated Resolved Time COVID19 Pending 05/27/2021 05/28/2021 05/29/2021 12:02 AM CDT documented as of this encounter Care Teams Outboard Motor Inspector Relationship Specialty Start Date End Date Elsewhere, Pcp PCP - General Family Medicine 11/04/19 documented as of this encounter
--- OUTSIDE RECORDS SUMMARY | 2022-02-10 14:40 | XMS_ITS | Encounter Summary ---
:1985 Author Organization [facility] Address [address] [place] [address] Care Team Providers Name Role Phone Elsewhere, Pcp Primary Care Provider Unavailable Encounter Details Date Type Department Care Team Description 10/30/2020 Clinical Communication Department of Elsewhere, Pcp Dermatology in [place], [place] [address] [place] [phone] Social History Tobacco Use Types Packs/Day Years Used Date Smoking Tobacco: Former Cigarettes 1 Quit : 03/15/2017 Smokeless Tobacco: Former Chew Sex Assigned at Date Recorded Male 10/17/2017 10:58 AM CDT documented as of this encounter Plan of Treatment Not on filedocumented as of this encounter Visit Diagnoses Not on filedocumented in this encounter Additional Health Concerns Assessment Noted Time PHQ-9 Depression Total Score: 10 11/04/2019 9:18 AM CD T documented as of this encounter Care Teams Crane Engineer Relationship Specialty Start Date End Date Elsewhere, Pcp PCP - General Family Medicine 11/04/19 documented as of this encounter
--- OUTSIDE RECORDS SUMMARY | 2022-02-10 14:40 | XMS_ITS | Encounter Summary ---
:1985 Author Organization [facility] Address [address] [place] [address] Care Team Providers Name Role Phone Elsewhere, Pcp Primary Care Provider Unavailable Reason for Visit Reason Comments Groin Pain Encounter Details Date Type Department Care Team Description 11/24/2020 Nurse Triage Department of Nikole Lemus R.N. Groin Pain Medicine, [facility], in [place], [place] [address] [place] [address] Social History Tobacco Use Types Packs/Day Years Used Date Smoking Tobacco: Former Cigarettes 1 Quit : 03/15/2017 Smokeless Tobacco: Former Chew Sex Assigned at Date Recorded Male 10/17/2017 10:58 AM CDT documented as of this encounter Miscellaneous Notes Telephone Encounter - Nikole Diamond R.N. - 11/24/2020 1:17 PM CDT Chief Complaint / Reason for Call Patient is a 34 y.o. male calling regarding Groin Pain. Assessment Concern: Patient reports pain to groin, redness to penis, pus draining from same. He reports dysuria, abdominal pain. Thinks he may have had a fever. Patient declines further triage at this time, requests visit. [facility] further assistance. documented in this encounter Plan of Treatment Not on filedocumented as of this encounter Visit Diagnoses Not on filedocumented in this encounter Additional Health Concerns Assessment Noted Time PHQ-9 Depression Total Score: 10 11/04/2019 9:18 AM CD T documented as of this encounter Care Teams Advanced Developer Relationship Specialty Start Date End Date Elsewhere, Pcp PCP - General Family Medicine 11/04/19 documented as of this encounter
--- OUTSIDE RECORDS SUMMARY | 2022-02-10 14:40 | XMS_ITS | Encounter Summary ---
:[address] [facility] Address [address] [place] [address] Care Team Providers Name Role Phone Elsewhere, Pcp Primary Care Provider Unavailable Encounter Details Date Type Department Care Team Description 06/18/2021 Lab Department of Trista Gatica, Encounter For Screening Medicine, [facility] For Other Viral Diseases [facility], in [address] (COVID-19) [place], [place] [address] [facility] [address] [place] [address] [facility] [phone] Social History Tobacco Use Types Packs/Day Years [...] Associated Diagnosis Comme nts SARS CORONAVIRUS-2 Routine 06/18/2021 9:06 AM Encounter For Re sults for this RNA, V CDT Screening For Other procedur e are in Viral Diseases the results (COVID-19) section. documented in this encounter Results SARS Coronavirus-2 RNA, V Asymptomatic (06/18/2021 9:06 AM CDT) [facility] Method Time Signature SARS-CoV-2 Swab, 06/18/2021 MKTO Specimen Nasopharynx 9:25 PM CDT Source SARS CoV-2 Undetected Undetected 06/18/2021 MKTO RNA, TMA 9:25 PM CDT Comment: SARS-CoV-2 RNA absent. This result does not rule out COVID-19 in the patient, as the sensitivity of the test depends o n the timing of the specimen collection and the quality of the specim en. Result should be correlated with patient's history and clinical presentat ion. ----ADDITIONAL INFORMATION---- This molecular amplification test was pe rformed using the Aptima SARS-CoV-2 assay ([employer] on the [employer] tem under emergency use authorization (EUA) by the U.S. Food and Drug Administ ration. Fact sheets for this EUA assay can be fo und at the following links: For Healthcare Providers: https://www.[employer] a.gov/media/974337/download For Patients: https://www.fda.gov/media/ 125334/download Specimen Anatomical Collection Method Collection Time Receive d Time (Source) Location / / Volume Laterality Varies 06/18/2021 9:06 AM 3:13 (Nasopharynx) CDT PM CDT Trista Garrido P.A.-C. LAB MICROBIOLOGY - GENERAL O RDERABLES Performing Organization Address [facility]/State/[facility] Phon e Number [facility]- [address] [place] [address] [place] [address] [address] documented in this encounter Visit Diagnoses Diagnosis Encounter For Screening For Other Viral Diseases (COVID-19) documented in this encounter Additional Health Concerns Infection Onset Date Last Indicated Resolved Time COVID19 Pending 06/17/2021 06/18/2021 06/18/2021 9:25 PM CDT documented as of this encounter Care Teams Apprentice Embalmer Relationship Specialty Start Date End Date Elsewhere, Pcp PCP - General Family Medicine 11/04/19 documented as of this encounter
--- OUTSIDE RECORDS SUMMARY | 2022-02-10 14:40 | XMS_ITS | Encounter Summary ---
:1985 Author Organization [facility] Address [address] [place] [id number] Care Team Providers Name Role Phone Elsewhere, Pcp Primary Care Provider Unavailable Reason for Visit Reason Comments Hand Pain Encounter Details Date Type Department Care Team Description 03/04/2021 Nurse Triage Division of [facility] Consuelo Hines , Hand Pain Internal Medicine, [facility] in [address] [place] [phone] [place] [address] [phone] Social History Tobacco Use Types Packs/Day Years Used Date Smoking Tobacco: Former Cigarettes 1 Quit : 03/15/2017 Smokeless Tobacco: Former Chew Sex Assigned at Date Recorded Male 10/17/2017 10:58 AM CDT documented as of this encounter Miscellaneous Notes Telephone Encounter - Consuelo Hines, R.N. - 03/04/2021 3:33 PM POLLS OR SURVEYS INTERVIEWER Chief Complaint / Reason for Call Patient is a 35 y.o. male calling regarding Hand Pain. Assessment Concern: Left hand broken. Right hand pain from carpel tunnel. Rates pain 9/10 at night. Describes at throbbing pain. Numbness in last 4 fingers. Right hand broken in 2009. Home cares tried: Brace, ice, elevation, Celebrex, ibuprofen Calling to request: advice The recommended disposition is See a health care provider within 4 hours. Patient was warm transferred to [facility] at the clinic for further assistance. Appointment made for tomorrow at 2:00 Reason for Disposition ??? [1] SEVERE pain (e.g., excruciating, unable to use hand at all) AND [2] not improved after 2 hours of pain medicine Protocols used: HAND AND WRIST [id number] Care Advice Patient/Caregiver understands and will follow care advice?: Yes, able to teach back SEE HCP WITHIN 4 HOURS (OR PCP TRIAGE): * IF OFFICE WILL BE OPEN: You need to be seen within the next 3 or 4 hours. CALL BACK IF: * You become worse. S OR SURVEYS INTERVIEWER documented in this encounter Plan of Treatment Not on filedocumented as of this encounter Visit Diagnoses Not on filedocumented in this encounter Care Teams Electronic Coils Supervisor Relationship Specialty Start Date End Date Elsewhere, Pcp PCP - General Family Medicine 11/04/19 documented as of this encounter
--- OUTSIDE RECORDS SUMMARY | 2022-02-10 14:40 | XMS_ITS | Encounter Summary ---
:1985 Author Organization [facility] Address [address] [place] [address] Care Team Providers Name Role Phone Elsewhere, Pcp Primary Care Provider Unavailable Reason for Referral Outpatient (Routine) - Closed Specialty Diagnoses / Procedures Referred By Contact Refer red To Contact Diagnoses Cyst Epidermal Nelda Alvarado APRN, C.N.PGerman, [facility] Procedures Soft Tissue Mass Excision M.S.N. [address] [place] [address] Referral ID Status Reason Start Date Expiration Date Visits Requ ested Visits Authorized [id number] Closed 10/30/2020 10/30/2021 1 1 Reason for Visit Reason Comments Lesion Outpatient (Routine) - Closed Specialty Diagnoses / Procedures Referred By Contact Refer red To Contact Dermatology Nelda Alvarado APRN C.N.PGerman, [facility] M.S.N. [address] [place] [address] Referral ID Status Reason Start Date Expiration Date Visits Requ ested Visits Authorized [id number] Closed 08/06/2020 08/06/2021 1 1 Encounter Details Date Type Department Care Team Description 10/30/2020 Office Visit Department of Nelda Alvarado Cyst Epidermal Dermatology in [place].N.PGerman, (Primary Dx) [place], [place] M.S.N. [address] [place] [address] [place] [phone] Social History Tobacco Use Types Packs/Day Years Used Date Smoking Tobacco: Former Cigarettes 1 Quit : 03/15/2017 Smokeless Tobacco: Former Chew Sex Assigned at Date Recorded Male 10/17/2017 10:58 AM CDT documented as of this encounter Progress Notes Nelda Alvraado APRN, C.N.P., M.S.N. - 10/30/2020 1:00 PM CDT SUBJECTIVE CHIEF COMPLAINT / REASON FOR VISIT Lesion. HISTORY OF PRESENT ILLNESS Tarik Adhikari is a 34 y.o. male who presents for excision of a cyst on his left upper back. He denies any new concerns today and is otherwise in his routine state health. Per nursing notes: Chief Complaint (Reason for visit): cyst removal How long has lesion(s) been present, any symptoms (pain, bleeding, or itching)? : no Was patient referred, self referred, or a returning derm patient? : returning patient Personal or family history of skin cancer or other skin condition? : no Any other skin concerns today? : No REVIEW OF SYSTEMS Constitutional, integumentary, and allergic/immunologic review of systems is negative except as otherwise remarked above or below. OBJECTIVE PHYSICAL EXAM General: Well-appearing male in no acute distress. Well groomed and dressed and answers appropriately to questions. Skin: I have examined the back, on the left upper back there is a 15 mm subcutaneous papule with a punctum consistent with epidermal cyst. ASSESSMENT / PLAN #1 Cyst Epidermal The benign nature of lesion was discussed with patient, patient was agreeable to excision of this benign lesion. Please see procedure note for further details. Patient will follow up as needed for re-evaluation. PATIENT EDUCATION Ready to learn, no apparent learning barriers were identified; learning preferences include listening. Explained diagnosis and treatment plan; patient expressed understanding of the content. This note represents shared documentation between the assisting nurse and the encounter provider. The content has been reviewed and edited as needed by the provider. documented in this encounter Procedure Notes Nelda Alvarado APRN, C.NMichael, M.S.N. - 10/30/2020 1:00 PM CDTAssociated Order(s): Soft Tissue Mass Excision Post-Procedure Diagnose(s): Cyst Epidermal Soft Tissue Mass Excision Date/Time: 10/30/2020 1:03 PM Performed by: Nelda Alvarado APRN, GlennNMichael, M.S.N. Authorized by: Nelda Alvarado APRN, C.N.Emiliano, M.S.N. Care team members present 1. Nelda Alvarado APRN, C.N.P., M.S.N. 2. Priya Wyatt, R.M.AGerman PROCEDURE DETAILS Lesion excised from within the subcutaneous tissue down to fascia: yes Size of mass (cm): 1.5 The wound edges were undermined: yes Hemostasis obtained by: Electrocautery Dermis closure: Suture size: 3-0 Suture material: Vicryl Suture technique: Simple interrupted Epidermis Closure: Repair method: Sutures Suture size: 4-0 Suture material: Nylon Suture technique: Running. Approximation difficulty: Intermediate Reason(s) for intermediate: layered closure Post-operative wound length (cm): 2 Procedural Medication The following medications were administered at the target site(s): 6 mL lidocaine-EPINEPHrine 1 %-1:100,000 CONSENT Consent obtained: written UNIVERSAL PROTOCOL All relevant documentation and testing were reviewed and available. All required blood products, implants, devices and or special equipment were made available as applicable. Pre-procedure verificationwas conducted and the correct site was marked if required. A fire risk assessment was done as applicable. The procedural time-out was conducted prior to performing the procedure and confirmed in a procedural pause. PRE-PROCEDURE DETAILS Procedure purpose: Therapeutic Indications: Epidermal cyst, left upper back Appropriate hand hygiene, gown, cap, mask, protective eyewear, sterile gloves, skin preparation, sterile drape, and strict aseptic technique were utilized as applicable for the procedure: yes Site preparation: Chlorhexidine SEDATION / ANESTHESIA Anesthesia method: local infiltration Local infiltrate type: lidocaine, with epinephrine POST-PROCEDURE DETAILS Specimen sent for pathological review: no (Lesion was examined and found to be consistent with an intact epidermal cyst. ) Procedure completed successfully: yes Complications: no apparent complications documented in this encounter Plan of Treatment Not on filedocumented as of this encounter Procedures Procedure Name Priority Date/Time Associated Diagnosis Comme nts SOFT TISSUE MASS Routine 10/30/2020 1:03 PM Cyst Epidermal Res ults for this EXCISION CDT procedure are i n the results section. documented in this encounter Results Soft Tissue Mass Excision (10/30/2020 1:03 PM CDT) Narrative MMODAL - 10/30/2020 1:03 PM CDT Nelda Alvarado APRN, C.N.P., M.S.N. ? 10/30/2020 ??2:03 PM Soft Tissue Mass Excision Date/Time: 10/30/2020 1:03 PM Performed by: Nelda Alvarado APRN, C.N.P., M.S.N. Authorized by: Nelda Alvarado APRN, C.N.P. , M.S.N. Care team members present 1. Nelda Alvarado APRN, C.N.P., M.S.N. 2. Priya Wyatt, R.M.A. PROCEDURE DETAILS ?? Lesion excised from within the subcutane ous tissue down to fascia: yes ?? Size of mass (cm): 1.5 The wound edges were undermined: yes ?? Hemostasis obtained by: ??Electrocautery Dermis closure: Suture size: ??3-0 Suture material: ??Vicryl Suture technique: ??Simple interrupted Epidermis Closure: Repair method: ??Sutures Suture size: ??4-0 Suture material: ??Nylon Suture technique: Running. Approximation difficulty: ??Intermediate Reason(s) for intermediate: layered clos ure Post-operative wound length (cm): ??2 Procedural Medication The following medications were administe red at the target site(s): ?? 6 mL lidocaine-EPINEPHrine 1 %-1:100,000 CONSENT Consent obtained: written UNIVERSAL PROTOCOL All relevant documentation and testing [...] and confirmed in a procedu ral pause. PRE-PROCEDURE DETAILS ?? Procedure purpose: ??Therapeutic Indications: ??Epidermal cyst, left uppe r back Appropriate hand hygiene, gown, cap, mas k, protective eyewear, sterile gloves, skin preparation, sterile drape, and strict aseptic technique were utilized as applicable for the procedure : yes ?? Site preparation: ??Chlorhexidine SEDATION / ANESTHESIA Anesthesia method: local infiltration Local infiltrate type: lidocaine, with e pinephrine POST-PROCEDURE DETAILS ?? Specimen sent for pathological review: n o (Lesion was examined and found to be consistent with an intact epiderma l cyst. ) ?? Procedure completed successfully: yes ?? Complications: no apparent complications ?? Nelda Alvarado APRN, C.N.P., M.S.N. PROCEDURE/MINOR SURGIC AL ORDERABLES Performing Organization Address City/State/ZIP Code Phon e Number MMODAL MMODAL NA documented in this encounter Visit Diagnoses Diagnosis Cyst Epidermal - Primary documented in this encounter Administered Medications Inactive Administered Medications - up to 3 most recent administrations Medication Order MAR Action Action Date Dose Rate Site lidocaine-EPINEPHrine 1 %-1:100,000 Given 10/30/2020 1:03 PM CDT 6 mL injection 6 mL (XYLOCAINE W/EPI) 6 mL, infiltration, One-Time Injection, Starting on Mon10/30/20 at 1303, For 1 dose documented in this encounter Additional Health Concerns Assessment Noted Time PHQ-9 Depression Total Score: 10 11/04/2019 9:18 AM CD T documented as of this encounter Care Teams Technical Support Manager Relationship Specialty Start Date End Date Elsewhere, Pcp PCP - General Family Medicine 11/04/19 documented as of this encounter
--- OUTSIDE RECORDS SUMMARY | 2022-02-10 14:40 | XMS_ITS | Encounter Summary ---
:1985 Author Organization [facility] Address [address] [place] [address] Care Team Providers Name Role Phone Elsewhere, Pcp Primary Care Provider Unavailable Encounter Details Date Type Department Care Team Description 11/05/2020 Clinical Communication Department of [facility] Gema Alvarado, Medicine, [place], [facility] [address] [place] [phone] Social History Tobacco Use Types Packs/Day Years Used Date Smoking Tobacco: Former Cigarettes 1 Quit : 03/15/2017 Smokeless Tobacco: Former Chew Sex Assigned at Date Recorded Male 10/17/2017 10:58 AM CDT documented as of this encounter Miscellaneous Notes Telephone Encounter - Berhane Jarquin R.N. - 11/06/2020 9:35 AM CDT Called patient and explained to him that the sutures internally are dissolvable and the one on the top are not dissolvable and need to be removed int 10-12 days. Patient has an appointment scheduled inclinic for removal and will call and cancel if he has them removed by someone else. Advised to call with any further questions or concerns. Telephone Encounter - Ayanna Silva - 11/05/2020 4:47 PM CDT Reason for Communication: Patient is calling in and stated that he would like a nurse to call him. Patient has questions about if he has any dissolvable stitches. Please call patient back. Current Can Nursing/Provider leave a detailed message?: no Did the patient refuse triage through Nurse line? (for symptom based concerns): na Action Needed: Please call patient back Name of Medication (if relevant): na Please send all scheduling replies to scheduling pool. documented in this encounter Plan of Treatment Not on filedocumented as of this encounter Visit Diagnoses Not on filedocumented in this encounter Additional Health Concerns Assessment Noted Time PHQ-9 Depression Total Score: 10 11/04/2019 9:18 AM CD T documented as of this encounter Care Teams American Indian Studies Professor Relationship Specialty Start Date End Date Elsewhere, Pcp PCP - General Family Medicine 11/04/19 documented as of this encounter
--- OUTSIDE RECORDS SUMMARY | 2022-02-10 14:40 | XMS_ITS | Encounter Summary ---
:1985 Author Organization [facility] Address [address] [place] [address] Care Team Providers Name Role Phone Elsewhere, Pcp Primary Care Provider Unavailable Encounter Details Date Type Department Care Team Description 03/05/2021 Hospital Encounter Department of Nestor Chang [place] [facility] [place] [address] [place] [phone] Social History Tobacco Use Types Packs/Day Years Used Date Smoking Tobacco: Former Cigarettes 1 Quit : 03/15/2017 Smokeless Tobacco: Former Chew Sex Assigned at Date Recorded Male 10/17/2017 10:58 AM CDT documented as of this encounter Medications at Time of Discharge Medication Sig Dispensed Refills Start Date End Date amphetamine-dextroamphet Take 30 mg by mouth 0 amine (ADDERALL XR) 30 daily. mg 24 hr capsule clonazePAM (KlonoPIN) 2 Twice A Day 0 08/27/2010 mg tablet famotidine (PEPCID) 20 Take 20 mg by mouth 2 0 mg tablet (two) times a day. ibuprofen (ADVIL,MOTRIN) Take 800 mg by mouth 0 1 04/07/2020 800 mg tablet 3 (three) times a day as needed. mometasone (NASONEX) 50 Administer 2 sprays 0 mcg/actuation nasal into each nostril spray daily. Pain Reliever Extra TAKE 1 TO 2 0 02/04/2021 Strength 500 mg tablet TABLETS(500-1000MG) BY MOUTH EVERY SIX HOURS NEEDED pantoprazole (PROTONIX) Take 40 mg by mouth 0 40 mg EC tablet every morning before breakfast. Paroex Oral Rinse 0.12 % RINSE WITH 1 CAPFUL 0 mouthwash FOR 30 SECONDS TWICE DAILY clindamycin-benzoyl Apply 1 application 25 g 2 021 05/28/2021 peroxide (BENZACLIN) 1-5 topically 2 (two) % gel times a day. Apply to affected. nortriptyline (PAMELOR) Take 20 mg by mouth 0 05/28/2021 10 mg capsule at bedtime. Patient is taking 2 tabs, 10mg each at bedtime sertraline (ZOLOFT) 50 0 01/24/2019 mg tablet documented as of this encounter Plan of Treatment Not on filedocumented as of this encounter Visit Diagnoses Diagnosis Pain Hand Left documented in this encounter Care Teams Fruit Harvest Worker Relationship Specialty Start Date End Date Elsewhere, Pcp PCP - General Family Medicine 11/04/19 documented as of this encounter
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
--- OUTSIDE RECORDS SUMMARY | 2022-02-10 14:40 | XMS_ITS | Encounter Summary ---
:1985 Author Organization [facility] Address [address] [place] [address] Care Team Providers Name Role Phone Elsewhere, Pcp Primary Care Provider Unavailable Reason for Referral Outpatient (Routine) - Closed Specialty Diagnoses / Procedures Referred By Contact Refer red To Contact Orthopedic Surgery Diagnoses Numbness Hand Lety Padgett M.D. [facility] [address] [place] [address] Referral ID Status Reason Start Date Expiration Date Visits Requ ested Visits Authorized [id number] Closed 04/08/2021 04/08/2022 1 1 ICAL ORDERLY Reason for Visit Reason Comments Emg RUE numbness Outpatient (Routine) - Closed Specialty Diagnoses / Procedures Referred By Contact Refer red To Contact Diagnoses Numbness Hand Lety Padgett M.D. [facility] Region Procedures EMG [address] [place] [address] Referral ID Status Reason Start Date Expiration Date Visits Requ ested Visits Authorized [id number] Closed 02/23/2021 02/23/2022 1 1 Encounter Details Date Type Department Care Team Description 04/07/2021 Diagnostic Department of Neurology in Jaye Coronel Numbness Hand Karina Murdock M.D. [address] [place] [address] [facility] [place] [phone] (Wo rk) Social History Tobacco Use Types Packs/Day Years Used Date Smoking Tobacco: Former Cigarettes 1 Quit : 03/15/2017 Smokeless Tobacco: Former Chew Sex Assigned at Date Recorded Male 10/17/2017 10:58 AM CDT documented as of this encounter Plan of Treatment Scheduled Referrals Name Type Priority Associated Order Schedule Diagnoses Orthopedic Surgery - Outpatient Referral Routine Numbness Hand Expected: Wrist / hand non 04/08/2021 surgical consult (Approximat e), (clinic) Expires: 07/06/2022 documented as of this encounter Procedures Procedure Name Priority Date/Time Associated Diagnosis Comme nts EMG Routine 04/07/2021 1:18 PM Numbness Hand Results for this SURGICAL ORDERLY procedure are i n the results section . documented in this encounter Results EMG (04/07/2021 1:18 PM SURGICAL ORDERLY) Specimen (Source) Anatomical Collection Method Collection Time Re ceived Time Location / / Volume Laterality 04/07/2021 1:30 PM SURGICAL ORDERLY Narrative [facility] EMG - 04/07/2021 2:06 PM SURGICAL ORDERLY 07-Apr-2021 ? Electromyography ? Final Report Study Number: 1 EMG Drying Unit Felting Machine Operator: Renzo Coronel Referred by: LETY PADGETT () Referred for: hand numbness Referral Code: ?038 RX: 211 SUMMARY: Prior to starting the procedure , the patient's identity was verified, pertinent available records were reviewed, the nature of the procedure was explained, the appropriate sites of the exam were confirmed directly with the pa tient, and a pre-procedure pause was performed for final verification of all of the above. ?? Nerve conduction studies in the right up per extremity revealed median motor response with a pr olonged distal latency but preserved amplitude. ??Ulnar motor response was normal. ??Median orth odromic sensory response showed a prolonged distal latency reduced amplitude. ??Ulnar orthodromic s ensory response was normal. ??In the left upper extremity the median motor response again showed a prolonged distal latency. ??There is evidence of a median to ulnar crossover in the forearm which is a normal variant. ??Median orthodromic sensory response showed a prolonged distal latency reduce d amplitude. ??Ulnar orthodromic sensory response was normal. ??Needle EMG of the right upper extremity was normal. CLINICAL INTERPRETATION: Abnormal study. ??The electrodiagnostic evidence is consistent with bilateral, moderate severity, median natalya ropathies at the wrist; as can be seen in carpal tunnel syndrome. ??There is no electrodiagnosti c evidence of a right cervical radiculopathy on this study. Regan Coronel () NERVE CONDUCTIONS ??Record Rep ?? Normal ??Normal Distal Normal F-Wave F-Wave Temp Nerve Type Site Stim Side Amp Amp CV CV Lat Lat Lat Est (??C) Median Motor APB ??R 5.6 (> 4.0) 54 (> 4 8) 4.8 (< 4.5) ?? 34.1 Ulnar Motor ADM ??R 10.0 (> 6.0) 69 (> 5 1) 2.4 (< 3.6) ?? 32.1 Median Sensory Wrist ??R 12 (> 50.0) ??( > 56) 3.3 (< 2.3) ?? 33.3 Ulnar Sensory Wrist ??R 46 (> 15.0) ??(> 55) 1.6 (< 2.3) ?? 33.0 Median Motor APB ??L 4.2 (> 4.0) 49 (> 4 8) 4.8 (< 4.5) ?? 33.1 Median Sensory Wrist ??L 4 (> 50.0) ??(> 56) 3.0 (< 2.3) ?? 32.6 Ulnar Sensory Wrist ??L 31 (> 15.0) ??(> 55) 1.8 (< 2.3) ?? 32.8 NEEDLE EMG ??Ins Spont MUP ??Recruitment Duration Amplitude Phases Muscle Side Act Fib Fasc Normal Activ Re duced Rapid Long Short High Low % Turns Ext digitorum communis R NL 0 0 NL ? First dorsal interosseous R NL 0 0 NL ? Pronator teres R NL 0 0 NL ? Biceps brachii R NL 0 0 NL ? +/- ? Triceps brachii (lateral head) R NL 0 0 NL ? This interpretation has been electron ically signed: Renzo Coronel MD at 04/07/2021 2:05:53 PM SURGICAL ORDERLY Lety Padgett M.D. NEUROLOGY ORDERABLES Performing Organization Address City/State/ZIP Code Phon e Number EMG documented in this encounter Visit Diagnoses Diagnosis Numbness Hand documented in this encounter Care Teams Curriculum Development Coordinator Relationship Specialty Start Date End Date Elsewhere, Pcp PCP - General Family Medicine 11/04/19 documented as of this encounter
--- OUTSIDE RECORDS SUMMARY | 2022-02-10 14:40 | XMS_ITS | Encounter Summary ---
:1985 Author Organization [facility] Address [address] [place] [address] Care Team Providers Name Role Phone Elsewhere, Pcp Primary Care Provider Unavailable Reason for Visit Reason Comments SURGERY DATES Encounter Details Date Type Department Care Team Description 05/25/2021 Clinical Communication Department of Antony Mccullough SU RGERY DATES Orthopedic Surgery in [place], [place] [address] [place] [phone] Social History Tobacco Use Types Packs/Day Years Used Date Smoking Tobacco: Former Cigarettes 1 Quit : 03/15/2017 Smokeless Tobacco: Former Chew Sex Assigned at Date Recorded Male 10/17/2017 10:58 AM CDT documented as of this encounter Miscellaneous Notes Telephone Encounter - Marybel Garrison C.N.AGerman - 05/25/2021 11:54 AM CDT SURGEON: BHARAT PRE-OP: ROCK 05/28/21 (THIS VISIT WILL NEED TO BE SIGNED OFF BY 11AM ON 05/28) SURGERY DATE: 1. 05/31/21 (left hand) 2. 06/21/21 (right hand) PROCEDURE: BILATERAL CARPAL TUNNEL RELEASE COVID TEST: 1. 05/28/21 (left hand) 2. 06/18/21 (right hand) ANESTHESIA: [facility] WILL CALL THE PATIENT WITH SURGERY TIME documented in this encounter Plan of Treatment Not on filedocumented as of this encounter Visit Diagnoses Not on filedocumented in this encounter Care Teams Protection Mgr Relationship Specialty Start Date End Date Elsewhere, Pcp PCP - General Family Medicine 11/04/19 documented as of this encounter
--- OUTSIDE RECORDS SUMMARY | 2022-02-10 14:40 | XMS_ITS | Encounter Summary ---
:1985 Author Organization [facility] Address [address] [place] [address] Care Team Providers Name Role Phone Elsewhere, Pcp Primary Care Provider Unavailable Reason for Visit Reason Comments Skin Problem ingrown hair Appointment Request (Routine) - Closed Specialty Diagnoses / Procedures Referred By Contact Refer red To Contact Dermatology Referral ID Status Reason Start Date Expiration Date Visits Requ ested Visits Authorized [id number] Closed 11/05/2020 11/05/2021 1 1 Encounter Details Date Type Department Care Team Description 01/04/2021 Office Visit Department of Nelda Alvarado Furuncle (Prim bryan Dx); Dermatology in [facility] [place], [place] M.S.N. [address] [place] [address] [place], [place] [phone] Social History Tobacco Use Types Packs/Day Years Used Date Smoking Tobacco: Former Cigarettes 1 Quit : 03/15/2017 Smokeless Tobacco: Former Chew Sex Assigned at Date Recorded Male 10/17/2017 10:58 AM CDT documented as of this encounter Progress Notes Nelda Alvarado APRN, C.N.P., M.S.N. - 01/04/2021 2:00 PM CDT SUBJECTIVE CHIEF COMPLAINT / REASON FOR VISIT Skin Problem (ingrown hair). HISTORY OF PRESENT ILLNESS Tarik Adhikari is a 35 y.o. male who presents for evaluation of an ingrown hair along his waistline that becomes inflamed from time to time. He is bothered by the scar and feels that the lesion becomes inflamed about once a month. He also has a mole on his chest that he would like evaluated. Per nursing notes: Chief Complaint (Reason for visit): Recheck cyst and ingrown hair, mole on chest How long has lesion(s) been present, any symptoms (pain, bleeding, or itching)? : off and on for a long time in the same spot Was patient referred, self referred, or a returning derm patient? : self Personal or family history of skin cancer or other skin condition? : no- unknown fo rfamily Any other skin concerns today? : Y REVIEW OF SYSTEMS Constitutional, integumentary, and allergic/immunologic review of systems is negative except as otherwise remarked above or below. OBJECTIVE PHYSICAL EXAM General: Well-appearing male in no acute distress. Well groomed and dressed and answers appropriately to questions. Skin: I have examined the on the left lower abdomen there is a light brown 1 x 2 cm scar with palpable scar tissue underneath the skin that is mildly inflamed. On the left upper chest there is a light brown, 6 mm papule with regular pigment network/structure. ASSESSMENT / PLAN #1 Reoccurring Furuncle At this time there is only mild inflammation, advised that he follow-up if the area becomes inflamedand fluctuant at which time we may incised and drain the lesion. After discussing treatment options he wishes to treat the area with intralesional Kenalog to try to shrink the scar tissue. PROCEDURE DETAILS Disposition options for this condition were discussed. Risks, benefits, and alternatives reviewed. After discussion, patient elected to proceed with intralesional Kenalog injection. Area was prepped and draped in the usual clean fashion. Kenalog 10 was injected to 1 sites on the left lower abdomen fora total of 0.3 mL. Post care instructions provided. #2 [place] The benign nature of the skin lesion(s) was discussed with the patient. No treatment is required. I recommend continued observation. Should symptoms or changes develop related to this condition, I would recommend a return visit for reassessment. PATIENT EDUCATION Ready to learn, no apparent learning barriers were identified; learning preferences include listening. Explained diagnosis and treatment plan; patient expressed understanding of the content. This note represents shared documentation between the assisting nurse and the encounter provider. The content has been reviewed and edited as needed by the provider. documented in this encounter Plan of Treatment Not on filedocumented as of this encounter Visit Diagnoses Diagnosis Furuncle - Primary Nev[place] Trunk documented in this encounter Administered Medications Inactive Administered Medications - up to 3 most recent administrations Medication Order MAR Action Action Date Dose Rate Site triamcinolone acetonide Given by Other 01/04/2021 2:43 PM CDT 5 mg injection 5 mg (KENALOG) 5 mg, intralesional, Once, On 01/04/21 at 1430, For 1 dose documented in this encounter Additional Health Concerns Assessment Noted Time PHQ-9 Depression Total Score: 10 11/04/2019 9:18 AM CD T documented as of this encounter Care Teams Batch Unloader Relationship Specialty Start Date End Date Elsewhere, Pcp PCP - General Family Medicine 11/04/19 documented as of this encounter
--- OUTSIDE RECORDS SUMMARY | 2022-02-10 14:40 | XMS_ITS | Encounter Summary ---
:1985 Author Organization [facility] Address [address] [place] [address] Care Team Providers Name Role Phone Elsewhere, Pcp Primary Care Provider Unavailable Reason for Referral Outpatient (Routine) - Authorized Specialty Diagnoses / Procedures Referred By Contact Refer red To Contact Orthopedic Surgery Diagnoses Numbness Hand Maggy Kothari APRN, Muench, Clinton A, C.N.PGerman [place] [address] [phone] Phone: Fax: Referral ID Status Reason Start Expiration Visits Visits Date Date Requested Authorized [id number] Authorized Patient 04/13/2021 04/13/2022 1 1 Preference AL BEHAVIORIST Reason for Visit Reason Comments Results Encounter Details Date Type Department Care Team Description 04/08/2021 Clinical Communication Department of [facility] Amanda Dennison, [facility] Medicine, [facility], in [address] [address] [place], [place] [phone] (Work) [phone] Social History Tobacco Use Types Packs/Day Years Used Date Smoking Tobacco: Former Cigarettes 1 Quit : 03/15/2017 Smokeless Tobacco: Former Chew Sex Assigned at Date Recorded Male 10/17/2017 10:58 AM CDT documented as of this encounter Miscellaneous Notes Telephone Encounter - Megan Breen L.PGermanN. - 04/13/2021 11:08 AM ANIMAL BEHAVIORIST SUBJECTIVE CHIEF COMPLAINT / REASON FOR CALL Results PLAN The following information was provided: Patient notified and fax sent Information/Education: patient/caller able to teach back The following references were used: provider Taye Peace AL BEHAVIORIST Telephone Encounter - Uzma Osorio C.MLyric - 04/13/2021 10:19 AM ANIMAL BEHAVIORIST Went over results with patient. He is asking for a referral to see Dr. Ballard in [facility] for carpal tunnel surgery. AL BEHAVIORIST Telephone Encounter - Audrey Barker L.P.N. - 04/08/2021 10:10 AM ANIMAL BEHAVIORIST ----- Message from Magnus Dennison M.D. sent at 04/08/2021 9:50 AM ANIMAL BEHAVIORIST ----- EMG showed bilateral carpal tunnel syndrome. I placed an order for orthopedic for further evaluationand treatment. Advised the patient to continue wearing hand splint and use [id number] medication to help with the pain. AL BEHAVIORIST documented in this encounter Plan of Treatment Not on filedocumented as of this encounter Visit Diagnoses Diagnosis Numbness Hand - Primary documented in this encounter Care Teams Mechanic Chief Relationship Specialty Start Date End Date Elsewhere, Pcp PCP - General Family Medicine 11/04/19 documented as of this encounter
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
--- OUTSIDE RECORDS SUMMARY | 2022-02-10 14:40 | XMS_ITS | Encounter Summary ---
:1985 Author Organization [facility] Address [address] [place] [address] Care Team Providers Name Role Phone Elsewhere, Pcp Primary Care Provider Unavailable Encounter Details Date Type Department Care Team Description 06/02/2021 Clinical Communication Department of Antony Mccullough, Orthopedic Surgery in [place], [place] [address] [place] [phone] Social History Tobacco Use Types Packs/Day Years Used Date Smoking Tobacco: Former Cigarettes 1 Quit : 03/15/2017 Smokeless Tobacco: Former Chew Alcohol Use Standard Drinks/Week Comments Yes 0 (1 standard drink = 0.6 oz pure alcoho l) OCCASIONAL Sex Assigned at Date Recorded Male 10/17/2017 10:58 AM CDT documented as of this encounter Miscellaneous Notes Telephone Encounter - Mackenzie Pearce L.PGermanN. - 06/02/2021 2:59 PM CDT Returned call to patient. Reviewing recommendation by provider. Patient would like it placed in his chart that he has not exceeded the correct amount. He was taking 2 Machias every four hours. He picked up the prescription on Monday at 2:21pm according to the patients pharmacy. Patient is currently taking ibruopfen. Patient does not have any of the 18 tablets provided at surgery discharge at this time.Patient has been and will continue to use ice. Elevation can be added to decrease swelling which patient is aware. Patient requested and was provided the patient satisfaction number. All questions wereanswered to the best of my knowledge. Directions for Machias use on hospital discharge instructions are as follows:Take 1-2 Tablets by mouth every 4 hours if needed for Pain. Max acetaminophen dose: 4000mg in 24 hrs. Telephone Encounter - Kimmy López - 06/02/2021 2:20 PM CDT Patient is asking to speak to nursing again, he can be contacted at [phone] Telephone Encounter - Jo-Ann Aggarwal P.A.-C. - 06/02/2021 11:55 AM CDT The Machias that he was given should last at least 3 days, and it has only been 2 days since surgery. No further narcotics are needed for this surgery. He can continue with ibuprofen, ice and elevation. He should limit activity with his hand. Telephone Encounter - Lauryn Hobbs - 06/02/2021 8:45 AM CDT Reason for Communication: Patient called. He had left hand surgery on 05/31/[address] Mccullough. He states that he is still having a lot of pain. He has been icing it and taking ibuprofen but still has pain. He is wondering if Dr Mccullough will give him just 1 more day of pain medication. He had been given Machias 325-5. He would like the Rx sent to [facility] in [place]. Current Can Nursing/Provider leave a detailed message?: yes Did the patient refuse triage through Nurse line? (for symptom based concerns): na Action Needed: Would like 1 more day of pain meds Name of Medication (if relevant): Machias Please send all scheduling replies to scheduling pool. documented in this encounter Plan of Treatment Not on filedocumented as of this encounter Visit Diagnoses Not on filedocumented in this encounter Additional Health Concerns Infection Onset Date Last Indicated Resolved Time COVID19 Pending 06/17/2021 06/18/2021 06/18/2021 9:25 PM CDT documented as of this encounter Care Teams Timber Spotter Relationship Specialty Start Date End Date Elsewhere, Pcp PCP - General Family Medicine 11/04/19 documented as of this encounter
--- OUTSIDE RECORDS SUMMARY | 2022-02-10 14:40 | XMS_ITS | Encounter Summary ---
:1985 Author Organization [facility] Address [address] [place] [address] Care Team Providers Name Role Phone Elsewhere, Pcp Primary Care Provider Unavailable Reason for Referral Outpatient (Routine) - Closed Specialty Diagnoses / Procedures Referred By Contact Refer red To Contact Diagnoses Numbness Hand Lety Dennison M.D. [facility] Region Procedures [facility] [address] [place] [address] Referral ID Status Reason Start Date Expiration Date Visits Requ ested Visits Authorized [id number] Closed 02/23/2021 02/23/2022 1 1 ROLLING COORDINATOR Reason for Visit Reason Comments Hand Pain Right hand, worsening within past month. Appointment Request (Routine) - Closed Specialty Diagnoses / Procedures Referred By Contact Refer red To Contact Family Medicine Referral ID Status Reason Start Date Expiration Date Visits Requ ested Visits Authorized [id number] Closed 02/22/2021 02/22/2022 1 1 Encounter Details Date Type Department Care Team Description 02/23/2021 Office Visit Department of Family Lety Dennison, Christiana bness Hand (Primary Dx); MedicineGigi M.D. Fracture Hand Multiple Closed Initial Le ft; Clinic, in [facility] [address] Pain Hand Right [place], [place] [address] [address] [place], [place] [phone] (Work) [phone] Social History Tobacco Use Types Packs/Day Years Used Date Smoking Tobacco: Former Cigarettes 1 Quit : 03/15/2017 Smokeless Tobacco: Former Chew Sex Assigned at Date Recorded Male 10/17/2017 10:58 AM CDT documented as of this encounter Last Filed Vital Signs Vital Sign Reading Time Taken Comments Blood Pressure 124/78 02/23/2021 8:44 AM COLD ROLLING COORDINATOR Pulse 71 02/23/2021 8:44 AM COLD ROLLING COORDINATOR Temperature 36.2 ??C (97.2 ??F) 02/23/2021 8:44 AM COLD ROLLING COORDINATOR Respiratory Rate 16 02/23/2021 8:44 AM COLD ROLLING COORDINATOR Oxygen Saturation - - Inhaled Oxygen Concentration - - Weight 87 kg (191 lb 12.8 oz) 02/23/2021 8:44 AM COLD ROLLING COORDINATOR Height 167 cm (5' 5.75) 02/23/2021 8:44 AM COLD ROLLING COORDINATOR Body Mass Index 31.2 02/23/2021 8:44 AM COLD ROLLING COORDINATOR documented in this encounter Progress Notes Lety Dennison M.D. - 02/23/2021 9:00 AM CST Progress Note Patient is 35 years old male who presented today to the clinic for evaluation of right hand pain. Patient stated that the pain has been going on for years. He thinks that he has carpal tunnel. He stated that recently on February 03, 2021, he broke his left hand and had surgery that was done at [facility]. Patient stated that since he has been using his right hand more than his left hand, the pain has progressively getting worse. Patient stated that the pain is mostly around the wrist area and goes to the thumb, index, middle and have of the ring finger. He stated that the pain is moderate in severity. Stated that the pain associated with numbness most of the time. He is currently not working. He stated that he has been taking ibuprofen 800 mg t.i.d. and sometimes Celebrex to help with thepain. He stated that gives him stomach pain. He stated that he has history of IBS and medications makes his pain worse. He also scheduled to start physical therapy tomorrow for his left hand. No Known Allergies Current Outpatient Medications: ??? amphetamine-dextroamphetamine (ADDERALL XR) 30 mg 24 hr capsule, Take 30 mg by mouth daily., Disp: , Rfl: ??? clonazePAM (KlonoPIN) 2 mg tablet, Twice A Day, Disp: , Rfl: ??? ibuprofen (ADVIL,MOTRIN) 800 mg tablet, Take 800 mg by mouth 3 (three) times a day as needed., Disp: , Rfl: ??? Pain Reliever Extra Strength 500 mg tablet, TAKE 1 TO 2 TABLETS(500-1000MG) BY MOUTH EVERY SIX HOURS NEEDED, Disp: , Rfl: ??? pantoprazole (PROTONIX) 40 mg EC tablet, Take 40 mg by mouth every morning before breakfast., Disp: , Rfl: ??? clindamycin-benzoyl peroxide (BENZACLIN) 1-5 % gel, Apply 1 application topically 2 (two) times a day. Apply to affected. (Patient not taking: Reported on 02/23/2021 ), Disp: 25 g, Rfl: 2 ??? clonazePAM (KlonoPIN) 2 mg tablet, Take 1 tablet (2 mg total) by mouth 2 (two) times a day for 14 days., Disp: 28 tablet, Rfl: 1 ??? famotidine (PEPCID) 20 mg tablet, Take 20 mg by mouth 2 (two) times a day., Disp: , Rfl: ??? mometasone (NASONEX) 50 mcg/actuation nasal spray, Administer 2 sprays into each nostril daily.,Disp: , Rfl: ??? nortriptyline (PAMELOR) 10 mg capsule, Take 20 mg by mouth at bedtime. Patient is taking 2 tabs,10mg each at bedtime, Disp: , Rfl: ??? Paroex Oral Rinse 0.12 % mouthwash, RINSE WITH 1 CAPFUL FOR 30 SECONDS TWICE DAILY, Disp: , Rfl: ??? sertraline (ZOLOFT) 50 mg tablet, , Disp: , Rfl: Past Medical History: Diagnosis Date ??? Abuse Substance Drug (HCC) ??? Anxiety Generalized Disorder ??? Attention Deficit Hyperactive Disorder ??? Depressive Disorder ??? Disturbance Sleep ??? Drug Withdrawal Syndrome (HCC) ??? Emotional Abuse Personal History ??? Explosive Intermittent Disorder ??? Headache Unspecified ??? Injury Head Initial ??? Loss Memory ??? Obsessive Compulsive Disorder ??? Posttraumatic Stress Disorder Brief Social History Tobacco Use ??? Smoking status: Former Smoker Packs/day: 1.00 Types: Cigarettes Quit date: 03/15/2017 Years since quittin.9 ??? Smokeless tobacco: Former User Types: Chew Substance Use Topics ??? Alcohol use: Not on file ??? Drug use: Not on file All other systems reviewed and are negative. Vitals: 02/23/21 0844 BP: 124/78 BP Location: Right arm Patient Position: Sitting Cuff Size: Regular Pulse: 71 Resp: 16 Temp: 36.2 ??C TempSrc: Temporal Weight: 87 kg Height: 167 cm Constitutional Appearance: He is well-developed. HENT Head: Normocephalic and atraumatic. Right Ear: External ear normal. Left Ear: External ear normal. Nose: Nose normal. Eyes Conjunctiva/sclera: Conjunctivae normal. Pupils: Pupils are equal, round, and reactive to light. Cardiovascular Rate and Rhythm: Normal rate and regular rhythm. Heart sounds: Normal heart sounds. Pulmonary Effort: Pulmonary effort is normal. Breath sounds: Normal breath sounds. Abdominal General: Bowel sounds are normal. Palpations: Abdomen is soft. Musculoskeletal General: Normal range of motion. Cervical back: Normal range of motion and neck supple. Comments: Tenderness in the right wrist and fingers. Mild swelling noted. Power is 4/5. Tunnel testis positive. Skin General: Skin is warm and dry. Neurological Mental Status: He is alert and oriented to person, place, and time. Deep Tendon Reflexes: Reflexes are normal and symmetric. Tarik was seen today for hand pain. Diagnoses and all orders for this visit: Numbness Hand Pain Hand Right - EMG; Future Tunnel test in the right hand was positive which indicates carpal tunnel. We will obtain an EMG. We discussed conservative management for now until we get his results back with night splint. His that does not help but the pain started to get worse, we also suggest corticosteroid injection. [id number]-[id number] pain medication advised. Stretching exercise also advised. Will call him once we get the results back. Fracture Hand Closed Left He will continue on physical therapy. Will follow up with Ortho. ROLLING COORDINATOR documented in this encounter Plan of Treatment Not on filedocumented as of this encounter Results EMG (04/07/2021 1:18 PM COLD ROLLING COORDINATOR) Specimen (Source) Anatomical Collection Method Collection Time Re ceived Time Location / / Volume Laterality 04/07/2021 1:30 PM COLD ROLLING COORDINATOR Narrative EMG - 04/07/2021 2:06 PM COLD ROLLING COORDINATOR 07-Apr-2021 ? Electromyography ? Final Report Study Number: [id number] EMG Frit Mixer And Burner: Renzo Coronel Referred by: LETY DENNISON () Referred for: hand numbness Referral Code: [...] Renzo Coronel MD at 04/07/2021 2:05:53 PM COLD ROLLING COORDINATOR Lety Dennison M.D. NEUROLOGY ORDERABLES Performing Organization Address City/State/ZIP Code Phon e Number [facility] documented in this encounter Visit Diagnoses Diagnosis Numbness Hand - Primary Fracture Hand Multiple Closed Initial Le ft Pain Hand Right Numbness Hand documented in this encounter Care Teams Tie Man Relationship Specialty Start Date End Date Elsewhere, Pcp PCP - General Family Medicine 11/04/19 documented as of this encounter
--- OUTSIDE RECORDS SUMMARY | 2022-02-10 14:41 | XMS_ITS | Encounter Summary ---
:1985 Author Organization [facility] Address [address] [place] [address] Care Team Providers Name Role Phone Elsewhere, Pcp Primary Care Provider Unavailable Reason for Visit Reason Comments Med Refill Encounter Details Date Type Department Care Team Description 11/18/2019 Refill Department of [facility] Dee Voss AP RN, Med Refill Medicine, [facility], [place] [address] [place] [address] [place] [address] [phone] Social History Tobacco Use Types Packs/Day Years Used Date Smoking Tobacco: Former Cigarettes 1 Quit : 03/15/2017 Smokeless Tobacco: Former Chew Sex Assigned at Date Recorded Male 10/17/2017 10:58 AM CDT documented as of this encounter Miscellaneous Notes Telephone Encounter - Jo-Ann Taylor LGermanP.N. - 11/21/2019 1:26 PM CDT noted Telephone Encounter - Jo-Ann Taylor L.PGermanNGerman - 11/20/2019 10:34 AM CDT Rx Clonazepam pending. Please refill in Dee's absence. Telephone Encounter - Ayanna Silva 11/19/2019 1:39 PM CDT Patient is calling in and stated that the he has talked to [facility] [employer] [place], they can see him within 2 weeks to a month. He stated that you can call them to clarify if you would like. Patient is needing a refill on his medication. Please call patient, with any questions. Telephone Encounter - Jo-Ann Taylor L.PGermanN. - 11/19/2019 11:16 AM CDT Patient hung up on justowriter operator when he answered the phone. When call back get answering machine, Left message to call back. Telephone Encounter - Papa Plascencia - 11/18/2019 3:31 PM CDT Nurse review: Unable to forward request to provider; Per med list, patient was to take for 14 days. Please verify if refill is appropriate. Primary Provider: Primary Care Physician, D.OGerman Telephone Encounter - Josselyn Fermin - 11/18/2019 3:22 PM CDT Name of Medication: clonazepam Primary Provider: Dee Voss Strength: 2 mg tablet Frequency: one tablet twice daily Pharmacy (include location): [facility] documented in this encounter Plan of Treatment Not on filedocumented as of this encounter Visit Diagnoses Not on filedocumented in this encounter Additional Health Concerns Assessment Noted Time PHQ-9 Depression Total Score: 10 11/04/2019 9:18 AM CD T documented as of this encounter Care Teams Manager Studio Relationship Specialty Start Date End Date Elsewhere, Pcp PCP - General Family Medicine 11/04/19 documented as of this encounter
--- OUTSIDE RECORDS SUMMARY | 2022-02-10 14:41 | XMS_ITS | Encounter Summary ---
:1985 Author Organization [facility] Address [address] [place] [address] Care Team Providers Name Role Phone Unavailable Primary Care Provider Unavailable Encounter Details Date Type Department Care Team Description 04/06/2016 Hospital Encounter HX [facility] Bart Craig M.D. [address] [place], [place] [phone] (Wo rk) Social History Tobacco Use Types Packs/Day Years Used Date Smoking Tobacco: Every Day Sex Assigned at Date Recorded Male 10/17/2017 10:58 AM CDT documented as of this encounter Last Filed Vital Signs Vital Sign Reading Time Taken Comments Blood Pressure 120/64 04/06/2016 11:17 AM [facility] Pulse 59 04/06/2016 11:17 AM [facility] Temperature - - Respiratory Rate - - Oxygen Saturation - - Inhaled Oxygen Concentration - - Weight - - Height 166 cm (5' 5.35) 04/06/2016 11:17 AM [facility] Body Mass Index - - documented in this encounter Medications at Time of Discharge Medication Sig Dispensed Refills Start Date End Date clonazePAM (KlonoPIN) 2 Twice A Day 0 08/27/2010 mg tablet mometasone (NASONEX) 50 Administer 2 sprays 0 mcg/actuation nasal into each nostril spray daily. ALPRAZolam (XANAX) 0.5 Take 1 tablet by 0 015 11/04/2019 mg tablet mouth 3 (three) times a day as needed. amphetamine-dextroamphet Take 1 capsule by 0 /07/201411/04/2019 amine (ADDERALL XR) 25 mouth every morning. mg 24 hr capsule buprenorphine-naloxone Place 1 Dose under 0 11/0911/04/2019 (SUBOXONE) 8-2 mg per SL the tongue 2 (two) film times a day. clonazePAM (KlonoPIN) 2 Take 1 tablet by 0 201411/04/2019 mg tablet mouth 2 (two) times a day. DULoxetine (CYMBALTA) 30 Take 1 capsule by 0 03/0611/04/[address] capsule mouth daily. fluticasone Administer 2 sprays 0 04/04/201603/06 (for_FLONASE) 50 into each nostril mcg/actuation nasal daily. spray multivitamin capsule Take 1 tablet by 0 7 02/23/2021 mouth daily. POLYMYXIN B Administer 1 drop 0 04/06/20162020 SULF/TRIMETHOPRIM into the right eye (POLYTRIM OPHT) every 4 (four) hours. documented as of this encounter Progress Notes Travis Craig M.D. - 04/06/2016 11:02 AM CST [id number] HISTORY OF PRESENT ILLNESS Patient here to follow up CT scan of the nose and sinuses and ultrasound of his neck. He had eye exam and his eye symptoms are resolving. He still has some left ear discomfort. This is a pressure. Alsosome discomfort in his throat 4 out of 10. No fevers. CT scan of nose and sinuses reviewed and discussed with patient. CT scan reveals postoperative changes from sinus surgery. Antra appear clear. He has bilateral frontal, ethmoid and sphenoid disease which is mild. Swelling of the septal mucosa. Hypertrophy of the left inferior and middle turbinate. MEDICATIONS Reviewed in the EMR ambulatory summary page today. ALLERGIES Reviewed in the EMR ambulatory summary page today. PAST MEDICAL/SURGICAL HISTORY Reviewed in the EMR ambulatory summary page today. SOCIAL HISTORY Patient is still smoking less than 20 cigarettes a day and also vapes. PHYSICAL EXAMINATION VITAL SIGNS: Blood pressure 120/64, pulse 59, temp 37.2 degrees. HEENT: Ear: Otomicroscopic exam reveals normal ear canal on the right side. Cerumen was cleaned fromthe left side. Left ear symptoms improved. Canal and tympanic membrane otherwise normal. Middle ear space appeared clear. Nose: Intranasal exam reveals some purulent drainage on both sides. Oral cavityis normal. Oropharynx reveals some erythema and edema of the posterior oropharyngeal wall with mild exudate. This is slightly purulent-appearing. Indirect nasopharyngoscopy and laryngoscopy is normal. NECK: Palpation of the neck reveals anterior cervical nodes on the right side. DIAGNOSTICS Ultrasound of the neck revealed a 1.8 x 0.8 x 1.4 cm right-sided cervical lymph node consistent withreactive node. Ultrasound results were reviewed with patient. IMPRESSION/REPORT/PLAN 1. Recheck otalgia. 2. Cerumen impaction, left ear. 3. Sinusitis. 4. Pharyngitis. PLAN: Scan and ultrasound reviewed and discussed with patient. Discussed exam findings today. We will treat with Augmentin 875mg 2 times a day for 10 days. Cerumen cleaned as dictated and ear symptoms improved. We will see again in followup on an as-needed basis should he continue to have problems. Would not recommend additional revision sinus surgery at this time. Will continue to observe and followhis right cervical nodes. He is agreeable to this. Visit was 20 minutes, 15 minutes spent in counseling regarding review of CT scan, ultrasound resultsand discussing diagnosis and further management. Travis Craig M.D./dale Electronically Signed By: TRAVIS CRAIG MD On: 04/14/2016 03:00 PM Source: [facility] MHSDOLBEYNONRADSYS Document Id: [id number] [facility] documented in this encounter Miscellaneous Notes Miscellaneous - Travis Craig M.D. - 04/06/2016 11:42 AM CST Ambulatory Patient Summary [address] [id number] Visit Information Name: ALEJANDRA ADHIKAIR [facility] Number: [id number] Current Date: 04/06/2016 11:42:54 Physicians Attending Provider: TRAVIS CRAIG MD Primary Care Provider: PCP, ELSEWHERE ALEJANDRA ADHIKARI has been given the following list of follow-up instructions, medication list, andpatient education materials: Follow-up Instructions Your Medications Here is a list of your medications. It is important to take your medications as directed. Use a pillbox or chart to help remind you to take your medications. Please let your doctor or nurse know if you have problems taking your medications. Medication/Strength How to Take Indications/Special Instructions/Comments/Notes for Patient Medication Changes/Routing ALPRAZolam (Xanax 0.5 mg oral tablet) 1 Tablet(s), Oral, three times a day as needed for Anxiety amoxicillin-clavulanate (amoxicillin-clavulanate 875 mg-125 mg oral tablet) 1 Tablet(s), Oral, two times a day x 10 day(s) New Routed to [address] [address] buprenorphine-naloxone (Suboxone 8 mg-2 mg sublingual film) 1 Each, Sublingual, two times a day For addiction (dissolve under the tongue) clonazePAM (Klonopin 2 mg oral tablet) 1 Tablet(s), Oral, two times a day Anxiety dextroamphetamine-amphetamine (Adderall XR 25 mg oral capsule, extended release) 1 cap, Oral, once aday (in the morning) ADHD *DULoxetine (Cymbalta 30 mg oral delayed release capsule) 1 cap, Oral, once a day anxiety, depression fluticasone nasal (Flonase 50 mcg/inh nasal spray) 2 [place](s), Nostrils(Both), once a day *mometasone nasal (Nasonex 50 mcg/inh nasal spray) 2 [place](s), Nostrils(Both), once a day multivitamin (multivitamin) 1 Tablet(s), Oral, once a day *polymyxin B-trimethoprim ophthalmic (Polytrim) 1 Drops, Eye(Right), every 4 hours can do every 4 hrs while awake. * You have let us know that you are not taking this medication as listed. Please talk with your primary care provider or the health care provider who prescribed the medication as soon as possible. Stop Taking the Following Medications: Medication list as of 04-06-16 11:42 Attention: If you have any medications at home that are not on this list, DO NOT take them until youcontact your provider for clarification. Give a copy of your medication list to your primary care provider. Update your medication list any time medications or doses are changed and carry your medication list at all times in case of emergency. Electronically Signed By: TRAVIS CRAIG MD Signed On:06-APR-2016 11:42:48 Your Allergies & Intolerances Substance Reaction Symptoms Category Comments No Known Allergies Drug Your Problem List Problem Status Onset Comments Polysubstance dependence, unspecified Active Headache, migraine NOS Active Myopia Active 03/10/2010 Chronic sinusitis NOS Active Tobacco abuse Active Recurrent major depression NOS Active 12/10/2010 Anxiety disorder, generalized Active 04/28/2011 ADHD Active 04/28/2011 Acne NOS Active 02/27/2012 Dermatitis / Eczema NOS Active 02/27/2012 Dermatitis Seborrhea Active Your Upcoming Appointments Date Time Location Provider No Appointments found Attention: Contact your local Clinic if further appointment detail needed. Consider Using Patient Online Services Patient Online Services is a secure online and Mobile application that lets you: ?? View lab and test results ?? View portions of your medical record including clinical notes, immunizations and discharge summaries ?? Request an appointment or medication refill ?? Review your appointment schedule ?? Send secure messages to your care team Its easy to create an account if you dont have one. Go to [email or web address] and click on Create Your Account. Then, follow the directions to complete the online form. Youll be asked for your [facility] number which you can find at the top of this document. Your Goals/Additional instructions: Source: [facility] POWERCHART Document Id: [id number] [facility] Miscellaneous - Travis Craig M.D. - 04/06/2016 11:42 AM CST Ambulatory Discharge Medication List [address] [id number] Visit Information Name: ALEJANDRA ADHIKARI [facility] Number: [id number] Current Date: 04/06/2016 11:42:52 Attending Provider: TRAVIS CRAIG MD Primary Care Provider: PCP, ELSEWHERE ALEJANDRA ADHIKARI has been given the following list of medications: Your Medications It is important to take your medications as directed. Use a pill box or chart to help remind you to take your medications. Please let your doctor or nurse know if you have problems taking your medications. Medication/Strength How to Take Indications/Special Instructions/Comments/Notes for Patient Medication Changes/Routing ALPRAZolam (Xanax 0.5 mg oral tablet) 1 Tablet(s), Oral, three times a day as needed for Anxiety amoxicillin-clavulanate (amoxicillin-clavulanate 875 mg-125 mg oral tablet) 1 Tablet(s), Oral, two times a day x 10 day(s) New Routed to [address] [address] buprenorphine-naloxone (Suboxone 8 mg-2 mg sublingual film) 1 Each, Sublingual, two times a day For addiction (dissolve under the tongue) clonazePAM (Klonopin 2 mg oral tablet) 1 Tablet(s), Oral, two times a day Anxiety dextroamphetamine-amphetamine (Adderall XR 25 mg oral capsule, extended release) 1 cap, Oral, once aday (in the morning) ADHD *DULoxetine (Cymbalta 30 mg oral delayed release capsule) 1 cap, Oral, once a day anxiety, depression fluticasone nasal (Flonase 50 mcg/inh nasal spray) 2 [place](s), Nostrils(Both), once a day *mometasone nasal (Nasonex 50 mcg/inh nasal spray) 2 [place](s), Nostrils(Both), once a day multivitamin (multivitamin) 1 Tablet(s), Oral, once a day *polymyxin B-trimethoprim ophthalmic (Polytrim) 1 Drops, Eye(Right), every 4 hours can do every 4 hrs while awake. * You have let us know that you are not taking this medication as listed. Please talk with your primary care provider or the health care provider who prescribed the medication as soon as possible. Stop Taking the Following Medications: Medication list as of 04-06-16 11:42 Attention: If you have any medications at home that are not on this list, DO NOT take them until youcontact your provider for clarification. Give a copy of your medication list to your primary care provider. Update your medication list any time medications or doses are changed and carry your medication list at all times in case of emergency. Electronically Signed By: TRAVIS CRAIG MD Signed On:06-APR-2016 11:42:48 Additional Information: Source: [facility] POWERCHART Document Id: [id number] [facility] Miscellaneous - Pradeep Dorantes L.P.N. - 04/06/2016 11:17 AM CST Adult Leather Goods Maker Intake/History Adult Leather Goods Maker Intake/History Entered On: 04/06/2016 11:25 [facility] Performed On: 04/06/2016 11:17 [facility] by PRADEEP DORANTES LPN Intake Chief Complaint : Review US neck and CT sinus. Temperature Core : 37.2 DegC(Converted to: 99.0 DegF) Peripheral Pulse Rate : 59 /min (LOW) Systolic Blood Pressure : 120 mmHg Diastolic Blood Pressure : 64 mmHg NIBP Mean : 83 mmHg BP Location : Left upper extremity Blood Pressure Cuff Size : Regular Height : 166 cm(Converted to: 5 ft 5 inch(es), 65 inch(es)) PRADEEP DORANTES LPN - 04/06/2016 11:17 [facility] General Info Information Given By : Patient Languages : Georgian Is Patient Female and 13-50 no hysterectomy : No PRADEEP DORANTES LPN - 04/06/2016 11:17 [facility] Subjective Pain Symptoms : Yes PRADEEP DORANTES LPN - 04/06/2016 11:17 [facility] Pain Scale Pain Scale Verbal 0-10 : Open PRADEEP DORANTES LPN - 04/06/2016 11:17 [facility] Pain Pain Assessment Grid Pain 1 Location : Throat (Comment: sore throat today [PRADEEP DORANTES LPN - 04/06/2016 11:17 [facility]] ) Intensity : 5 PRADEEP DORANTES LPN - 04/06/2016 11:17 [facility] Dependent Habits Smoking Status : Current every day smoker Tobacco 2A : Yes Tobacco Use/Currently Using : Yes Tobacco Use/Last 30 Days : Yes Tobacco Use/Last 12 months : Yes Type : Cigarettes: Less than 20 per day Tobacco Use/Advised to Quit : Yes Alcohol Use : Yes PRADEEP DORANTES LPN - 04/06/2016 11:17 [facility] Caffeine Use Grid Caffeine Use : None PRADEEP DORANTES LPN - 04/06/2016 11:17 [facility] Recreational Drug Use Grid Drug Use : None PRADEEP DORANTES LPN - 04/06/2016 11:17 [facility] Source: [facility] POWERCHART Document Id: [id number] [facility]!39 [facility] documented in this encounter Plan of Treatment Not on filedocumented as of this encounter Visit Diagnoses Not on filedocumented in this encounter Additional Health Concerns Assessment Noted Time PHQ-9 Depression Total Score: 6 03/20/2014 10:55 AM CS T documented as of this encounter
--- OUTSIDE RECORDS SUMMARY | 2022-02-10 14:41 | XMS_ITS | Encounter Summary ---
:1985 Author Organization [facility] Address [address] [place] [address] Care Team Providers Name Role Phone Unavailable Primary Care Provider Unavailable Encounter Details Date Type Department Care Team Description 01/03/2017 Orders Only Department of Ophthalmology Konrad Carter, Pain Eye Left; in [place] Murdock M.D. Rhinitis Chronic [address] [place] [address] [place], [place] [phone] Social History Tobacco Use Types Packs/Day Years Used Date Smoking Tobacco: Every Day Sex Assigned at Date Recorded Male 10/17/2017 10:58 AM CDT documented as of this encounter Plan of Treatment Not on filedocumented as of this encounter Visit Diagnoses Diagnosis Pain Eye Left Rhinitis Chronic documented in this encounter Additional Health Concerns Assessment Noted Time PHQ-9 Depression Total Score: 6 03/20/2014 10:55 AM CS T documented as of this encounter
--- OUTSIDE RECORDS SUMMARY | 2022-02-10 14:41 | XMS_ITS | Encounter Summary ---
:1985 Author Organization [facility] Address [address] [place] [address] Care Team Providers Name Role Phone Elsewhere, Pcp Primary Care Provider Unavailable Encounter Details Date Type Department Care Team Description 11/04/2019 Clinical Communication Department of [facility], David Anna, Medicine, [place] Venkat [place] [facility], in [place], [address] [place], [place] [address] [address] [place], [place] [phone] [phone] (Work) [phone] Social History Tobacco Use Types Packs/Day Years Used Date Smoking Tobacco: Former Cigarettes 1 Quit : 03/15/2017 Smokeless Tobacco: Former Chew Sex Assigned at Date Recorded Male 10/17/2017 10:58 AM CDT documented as of this encounter Miscellaneous Notes Telephone Encounter - Jo-Ann Taylor L.PYomi - 11/08/2019 1:55 PM CDT Patient answered phone and then hung up. Will mail out communications Telephone Encounter - Jo-Ann Taylor L.P.N. - 11/06/2019 12:56 PM CDT Patient answered phone and then hung up. Retried to call and got answering system. Left message to call back. Telephone Encounter - Neema Aggarwal L.P.N. - 11/04/2019 5:52 PM CDT Left message to call back. Telephone Encounter - Dee Voss APRN, C.N.Emiliano - 11/04/2019 3:27 PM CDT Rx sent x 14 day only to bridge gap to [facility] establish care Telephone Encounter - Priya Sargent L.P.N. - 11/04/2019 3:25 PM CDT Pharmacy states patient does not have any refills remaining. Telephone Encounter - Dee Voss APRN, C.N.PGerman - 11/04/2019 3:10 PM CDT After reviewing the PDMP patient has to refills of clonazepam from the prescriber who sent in his last prescription that he picked up on 09/25/2019. He should have to remaining refills under her at [facility]. This is why I did not refill. Telephone Encounter - Priya Sargent L.PGermanNGerman - 11/04/2019 2:49 PM CDT Please advise on this, thank you. Telephone Encounter - Laurny Hobbs - 11/04/2019 11:47 AM CDT Reason for Communication: patient called. He saw Dee Voss this morning. She was supposed to send in an Rx for his Clonazepam to [facility] in [place]. They haven't gotten the Rx yet. He would like it sent. Current if questions Can Nursing/Provider leave a detailed message?: yes Did the patient refuse triage through Nurse line? (for symptom based concerns): na Action Needed: wants rx sent to pharmacy Name of Medication (if relevant): clonazepam documented in this encounter Plan of Treatment Not on filedocumented as of this encounter Visit Diagnoses Not on filedocumented in this encounter Additional Health Concerns Assessment Noted Time PHQ-9 Depression Total Score: 10 11/04/2019 9:18 AM CD T documented as of this encounter Care Teams Craps Dealer Relationship Specialty Start Date End Date Elsewhere, Pcp PCP - General Family Medicine 11/04/19 documented as of this encounter
--- OUTSIDE RECORDS SUMMARY | 2022-02-10 14:41 | XMS_ITS | Encounter Summary ---
:1985 Author Organization [facility] Address [address] [place] [address] Care Team Providers Name Role Phone Unavailable Primary Care Provider Unavailable Reason for Visit Reason Comments Med Refill Encounter Details Date Type Department Care Team Description 03/24/2017 Refill Department of Otorhinolaryngology Travis Church, Med Refill in [place] M.D. [address] [place] [address] [place], [place] [phone] (Wo rk) Social History Tobacco Use [...]
--- OUTSIDE RECORDS SUMMARY | 2022-02-10 14:41 | XMS_ITS | Encounter Summary ---
:1985 Author Organization [facility] Address [address] [place] [address] Care Team Providers Name Role Phone Elsewhere, Pcp Primary Care Provider Unavailable Reason for Referral Outpatient (Routine) - Closed Specialty Diagnoses / Procedures Referred By Contact Refer red To Contact Dermatology Nelda Alvarado, ZA, C.N.PGerman, [facility] M.S.N. [address] [place] [address] Referral ID Status Reason Start Date Expiration Date Visits Requ ested Visits Authorized [id number] Closed 08/06/2020 08/06/2021 1 1 Scheduling Instructions Cyst removal on back please schedule for 45 min on 10-30-20 at 1 pm Reason for Visit Reason Comments Lesion Rash Appointment Request (Routine) - Closed Specialty Diagnoses / Procedures Referred By Contact Refer red To Contact Dermatology Referral ID Status Reason Start Date Expiration Date Visits Requ ested Visits Authorized [id number] Closed 07/09/2020 07/09/2021 1 1 Encounter Details Date Type Department Care Team Description 08/06/2020 Office Visit Department of Nelda Alvarado, Dermatitis Jamari orrheic (Primary Dx); Dermatology in [place], Rosacea; [place], [place] M.S.N. Cyst Epidermal; [address] [facility] [address] [place], [place] [phone] Social History Tobacco Use Types Packs/Day Years Used Date Smoking Tobacco: Former Cigarettes 1 Quit : 03/15/2017 Smokeless Tobacco: Former Chew Sex Assigned at Date Recorded Male 10/17/2017 10:58 AM CDT documented as of this encounter Progress Notes Nelda Alvaraod APRN, CGermanNErrol., M.S.N. - 08/06/2020 3:00 PM CDT SUBJECTIVE CHIEF COMPLAINT / REASON FOR VISIT Lesion and Rash. HISTORY OF PRESENT ILLNESS Tarik Adhikari is a 34 y.o. male who presents for follow-up evaluation of chronic seborrheic dermatitis, rosacea, and evaluation of a bump on his upper back and a mole on his lower back. Per nursing notes: Chief Complaint (Reason for visit): wants to talk about skin care How long has lesion(s) been present, any symptoms (pain, bleeding, or itching)? : itchy, now painfuland burning Was patient referred, self referred, or a returning derm patient? : returning patient Personal or family history of skin cancer or other skin condition? : no Any other skin concerns today? : No The following portions of the patient's history were reviewed and updated as appropriate: allergies,current medications, medical history and social history. REVIEW OF SYSTEMS Constitutional, integumentary, and allergic/immunologic review of systems is negative except as otherwise remarked above or below. OBJECTIVE PHYSICAL EXAM General: Well-appearing male in no acute distress. Well groomed and dressed and answers appropriately to questions. Skin: There is mild waxy scaling and erythema along the finney and mustache. There is mild to moderate flushing on the bilateral cheeks, nose, and forehead. On the lower back along the tattoo there is a4 mm brown macule without any identifiable abnormal features. On the upper back trapezius there is a10-12 mm subdermal papule consistent with probable epidermal cyst. ASSESSMENT / PLAN #1 Dermatitis Seborrheic We discussed the importance of consistently using topical treatments in order to maintain symptom control. Advised that he use ketoconazole 2% shampoo to the affected area allowing to sit for 5-10 minutes before rinsing. He may also apply hydrocortisone 2.5% cream to the area as needed for itching andredness #2 Rosacea Advised patient to continue monitoring and discussed the importance of photoprotection and avoidanceof triggers. #3 Cyst Epidermal Patient would like this removed and will follow up at his earliest convenience for excision. #4 Nevus Benign The benign nature of the skin lesion(s) [...] Name Type Priority Associated Order Schedule Diagnoses Dermatology office Outpatient Referral Routine Ex pected: visit (clinic) 10/30/2020 (Approximate), Expires: 08/07/2023 documented as of this encounter Visit Diagnoses Diagnosis Dermatitis Seborrheic - Primary Rosacea Cyst Epidermal Nevus Benign documented in this encounter Additional Health Concerns Assessment Noted Time PHQ-9 Depression Total Score: 10 11/04/2019 9:18 AM CD T documented as of this encounter Care Teams Cleaner Housekeeping Relationship Specialty Start Date End Date Elsewhere, Pcp PCP - General Family Medicine 11/04/19 documented as of this encounter
--- OUTSIDE RECORDS SUMMARY | 2022-02-10 14:41 | XMS_ITS | Encounter Summary ---
:1985 Author Organization [facility] Address [address] [place] [address] Care Team Providers Name Role Phone Unavailable Primary Care Provider Unavailable Encounter Details Date Type Department Care Team Description 03/30/2016 Historical Ophthalmology [facility] Konrad Carter M.D. [address] [place], [place] [phone] (Wo rk) Social History Tobacco Use Types Packs/Day Years Used Date Smoking Tobacco: Every Day Sex Assigned at Date Recorded Male 10/17/2017 10:58 AM CDT documented as of this encounter Progress Notes Konrad Carter M.D. - 03/30/2016 10:44 AM CST Eye General CHIEF COMPLAINT Pain in Left eye HISTORY OF PRESENT ILLNESS Pt states has intermittent pain in both eyes over the past year. {Left > Right} Notes that pain became more amplified and noticeable in last 2wks. Also c/o light sensitivity. Pain described as dull ache & sharp. Some eye twitching, mostly right eye. IMPRESSION / REPORT / PLAN #1 Eye pain left eye. Undetermined etiology. Unexplained based upon clinical exam. Reported pain appears to be out of proportion to unremarkable exam but patient awaiting CT scan evaluation. Plan: Observation. Consider MR. III DIAGNOSIS #1 Eye pain left eye. Undetermined etiology. Unexplained based upon clinical exam. Reported pain appears to be out of proportion to unremarkable exam but patient awaiting CT scan evaluation. CD Reports - EYEGEN Id: [id number] Status: Fnl Electronically signed by Herrera [facility] Ophthalmology Notes [id number] at 08/24/2016 1:27 PM CDT documented in this encounter Plan of Treatment Not on filedocumented as of this encounter Visit Diagnoses Not on filedocumented in this encounter Additional Health Concerns Assessment Noted Time PHQ-9 Depression Total Score: 6 03/20/2014 10:55 AM CS T documented as of this encounter
--- OUTSIDE RECORDS SUMMARY | 2022-02-10 14:41 | XMS_ITS | Encounter Summary ---
:1985 Author Organization [facility] Address [address] [place] [address] Care Team Providers Name Role Phone Unavailable Primary Care Provider Unavailable Reason for Visit Reason Comments Eye Exam Outpatient (Routine) - Closed Specialty Diagnoses / Procedures Referred By Contact Refer red To Contact Ophthalmology Konrad Carter M.D. [facility] [address] [place] [address] Referral ID Status Reason Start Date Expiration Date Visits Requ ested Visits Authorized [id number] Closed 03/24/2017 09/20/2017 1 1 Encounter Details Date Type Department Care Team Description 08/01/2018 Comprehensive Visit Department of Desean Medellin Visual Ophthalmology mauricio Head M.D. [place], [place] [address] (Primary Dx) [address] [place] [phone] Social History Tobacco Use Types Packs/Day Years Used Date Smoking Tobacco: Former Cigarettes 1 Quit : 03/15/2017 Smokeless Tobacco: Current Chew Sex Assigned at Date Recorded Male 10/17/2017 10:58 AM CDT documented as of this encounter Progress Notes Desean Medellin M.D. - 08/01/2018 3:30 PM CDT Tarik Adhikari was seen today for Eye Exam #1 Ill defined visual complaints Possible migraine variant but also shimmering arcuate defects when exercising has Seen Tonny Brown, and Ros[place]. Because of the chronic nature and lack of any definitive diagnosis we dicussed refer to neurophthalmology. He would like to have a referral. He fills related to previous sinus surgery #2 Past History of depression and substance abuse issues documented in this encounter Plan of Treatment Not on filedocumented as of this encounter Visit Diagnoses Diagnosis Other Visual Disturbances - Primary documented in this encounter Additional Health Concerns Assessment Noted Time PHQ-9 Depression Total Score: 6 03/20/2014 10:55 AM CS T documented as of this encounter
--- OUTSIDE RECORDS SUMMARY | 2022-02-10 14:41 | XMS_ITS | Encounter Summary ---
:1985 Author Organization [facility] Address [address] [place] [address] Care Team Providers Name Role Phone Unavailable Primary Care Provider Unavailable Reason for Referral Outpatient (Routine) - Closed Specialty Diagnoses / Procedures Referred By Contact Refer red To Contact Dermatology Nelda Alvarado APRN, C.NMichael, [facility] M.S.N. [address] [place] [phone] Referral ID Status Reason Start Date Expiration Date Visits Requ ested Visits Authorized [id number] Closed 12/31/2018 12/31/2019 1 1 Reason for Visit Reason Comments Skin Problem seborrhea Encounter Details Date Type Department Care Team Description 12/31/2018 Comprehensive Visit Department of Nelda Alvarado, Dermati tis Seborrheic (Primary Dx); Dermatology in [place], Acne Rosacea [place], [place] M.S.N. [address] [facility] [address] [place], [place] [phone] Social History Tobacco Use Types Packs/Day Years Used Date Smoking Tobacco: Former Cigarettes 1 Quit : 03/15/2017 Smokeless Tobacco: Current Chew Sex Assigned at Date Recorded Male 10/17/2017 10:58 AM CDT documented as of this encounter H&P Notes Nelda Alvarado APRN, C.NMichael, M.S.N. - 12/31/2018 2:45 PM CDT DISCLAIMER: Patient was made aware that I am trained as a Family Medicine Specialist and have a special interest in Dermatology. However, I am not a office machine mechanic. Anything beyond the scope of my abilities or comfort level will be referred to a Crew Car Driver of their choosing. SUBJECTIVE CHIEF COMPLAINT / REASON FOR VISIT Seborrheic dermatitis and rosacea HISTORY OF PRESENT ILLNESS Tarik is a very pleasant 33-year-old male who presents for evaluation of chronic seborrhea involving the face and scalp, he notes worsening on the face. He also notes increasing facial flushing that is constant but worsen spicy warmer temperatures. Per Nursing Notes: More details of current skin concern: Dry peeling skin on face , on ears and behind. Flushing feeling not to worried about that . Has been using Vanicream Z- bar which is helpful but the areas never completely clear. Any other skin concerns: No Has the patient previously been a dermatology patient? Yes - 03/23/18 Is patient referred by another provider or self referred? self Personal history of skin cancer? (include details) No Significant history of sun exposure? Yes - motorcycle Two or more blistering sunburns before age 17? No History of tanning bed use? No Personal history of other skin problems? Yes - seborrhea Family history of skin cancer? No Family history of other significant skin problems? No REVIEW OF SYSTEMS PERTINENT TO DERMATOLOGY Constitutional, integumentary, and allergic/immunologic review of systems is negative of systems is otherwise negative except as remarked above or below. OBJECTIVE PHYSICAL EXAM General: Alert and oriented x3. Well-nourished and groomed, in no acute distress. SKIN: I have examined the face, there is xhsr-bg-uhmbgart flushing of the bilateral cheeks, nose, and forehead as well as small pink papules along the medial cheeks and nasal labial folds. There is mild waxy scaling and erythema along the finney, mustache, eyebrows, and scalp consistent with seborrheic dermatitis. ASSESSMENT / PLAN #1 Dermatitis Seborrheic #2 Acne Rosacea We discussed the chronic nature of conditions, and advised patient on dry/sensitive skin care, avoidance of triggers, and photoprotection. Advised patient to continue with regular use of anti dandruff shampoo allowing to sit for 5-10 minutes before rinsing. He may also use fcwh-nuk-adrbsva hydrocortisone cream as needed. I have provided him with a prescription for metronidazole 0.75% cream to use to the central face and forehead twice daily. At this time he does in a wish to try any other treatment for the flushing other than a trial of ouna-hsq-anhgcqm Afrin nasal spray topically. He will follow up in 3 months for re-evaluation or sooner with any concerning flares. PATIENT EDUCATION Ready to learn, no apparent learning barriers were identified; learning preferences include listening. Explained diagnosis and treatment plan; patient expressed understanding of the content. Total timespent with patient 25 minutes of which approximately 15 minutes was spent in counseling. 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
--- OUTSIDE RECORDS SUMMARY | 2022-02-10 14:41 | XMS_ITS | Encounter Summary ---
:1985 Author Organization [facility] Address [address] [place] [address] Care Team Providers Name Role Phone Elsewhere, Pcp Primary Care Provider Unavailable Encounter Details Date Type Department Care Team Description 08/06/2020 Ancillary Procedure Department of Dermatology Social History Tobacco Use Types Packs/Day Years Used Date Smoking Tobacco: Former Cigarettes 1 Quit : 03/15/2017 Smokeless Tobacco: Former Chew Sex Assigned at Date Recorded Male 10/17/2017 10:58 AM CDT documented as of this encounter Plan of Treatment Not on filedocumented as of this encounter Procedures Procedure Name Priority Date/Time Associated Comments Diagnosis DERMATOLOGY IMAGE Routine 08/06/2020 3:40 PM Resu lts for this EXAM CDT procedure are i n the results section. documented in this encounter Results Back 527-Dermatology Image Exam (08/06/2020 3:40 PM CDT) Specimen (Source) Anatomical Collection Method Collection Time Re ceived Time Location / / Volume Laterality 08/06/2020 3:40 PM CDT Narrative [facility] - 08/06/2020 3:50 PM CDT This order has been created and auto-finalized to support the import of images acquired without order. The clini bhavik documentation to support these images can be found on the encounter trina t produced images. Provider Not In System IMG NON RAD IMAGING PROCEDUR ES Performing Organization Address City/State/ZIP Code Phon e Number [facility] NA documented in this encounter Visit Diagnoses Not on filedocumented in this encounter Additional Health Concerns Assessment Noted Time PHQ-9 Depression Total Score: 10 11/04/2019 9:18 AM CD T documented as of this encounter Care Teams Transportation Refrigeration Technician Relationship Specialty Start Date End Date Elsewhere, Pcp PCP - General Family Medicine 11/04/19 documented as of this encounter
--- OUTSIDE RECORDS SUMMARY | 2022-02-10 14:41 | XMS_ITS | Encounter Summary ---
:1985 Author Organization [facility] Address [address] [place] [address] Care Team Providers Name Role Phone Unavailable Primary Care Provider Unavailable Reason for Referral Outpatient (Routine) - Closed Specialty Diagnoses / Procedures Referred By Contact Refer red To Contact Dermatology Nelda Alvarado APRN C.N.PGerman, [facility] M.S.N. [address] [place] [address] Referral ID Status Reason Start Date Expiration Date Visits Requ ested Visits Authorized [id number] Closed 04/04/2019 04/03/2020 1 1 HEEL Reason for Visit Reason Comments Rash Outpatient (Routine) - Closed Specialty Diagnoses / Procedures Referred By Contact Refer red To Contact Dermatology Nelda Alvarado APRN C.N.PGerman, [facility] M.S.N. [address] [place] [address] Referral ID Status Reason Start Date Expiration Date Visits Requ ested Visits Authorized [id number] Closed 12/31/2018 12/31/2019 1 1 Encounter Details Date Type Department Care Team Description 04/04/2019 Office Visit Department of Nelda Alvarado, Acne Rosacea ( Primary Dx); Dermatology in [place].N.PGerman, Dermatitis S eborrheic; [place], [place] M.S.N. Dermatitis [address] [place] [address] [place], [place] [phone] Social History Tobacco Use Types Packs/Day Years Used Date Smoking Tobacco: Former Cigarettes 1 Quit : 03/15/2017 Smokeless Tobacco: Former Chew Sex Assigned at Date Recorded Male 10/17/2017 10:58 AM CDT documented as of this encounter Progress Notes Nelda Alvarado APRN, C.N.P., M.S.N. - 04/04/2019 2:15 PM CST SUBJECTIVE CHIEF COMPLAINT / REASON FOR VISIT Follow-up seborrheic dermatitis and rosacea HISTORY OF PRESENT ILLNESS Tarik Adhikari is a 33 y.o. male who presents for follow-up evaluation of seborrheic dermatitis and rosacea on his face. He reports that he continues to have intermittent flaring of red bumps on his face that are somewhat pruritic. He also gets extensive scaling along his mustache. He has been usingVanicream Z- bar, but did not use the metronidazole 0.75% cream that was prescribed at his last visit. He also notes a chronic rash on his right knee that has been present for several years. He does tend to scratch the area excessively. Per nursing notes: How long has rash been present, any symptoms (pain, bleeding, or itching)? : 4 years General location of rash: face and now spot on left hand Any known contacts/exporure: no What treatments/medication has patient tried: topicals Was patient referred, self referred, or a returning derm patient? : Returning patient Personal or family history of eczema/psoriasis, or other skin condition? : Yes - Eczema Any other skin concerns today? : Yes - Spot on left hand The following portions of the patient's history were reviewed and updated as appropriate: allergies,current medications, family history, medical history, social history and problem list. REVIEW OF SYSTEMS Constitutional, integumentary, and allergic/immunologic review of systems is negative except as otherwise remarked above or below. OBJECTIVE PHYSICAL EXAM General: Well-appearing male in no acute distress. Well groomed and dressed and answers appropriately to questions. Skin: I have examined the face, there is epoh-ko-eysdfxwi flushing of the bilateral cheeks, nose, and forehead as well as small pink papules along the medial cheeks and nasal labial folds. There is mild waxy scaling and erythema along the finney, mustache, eyebrows, and scalp consistent with seborrheic dermatitis. On the right anterior lower knee there is a thick, scaly, slightly erythematous and excoriated plaque. ASSESSMENT / PLAN #1 Acne Rosacea #2 Dermatitis Seborrheic We discussed chronic nature of condition, advised patient to try using the metronidazole 0.75 % cream twice daily to the affected areas on the cheek, since he is having continuous flaring we did discussed initiating oral minocycline 50 mg twice daily. However, we discussed importance of using the cream to help prevent flares. He will also apply hydrocortisone 1% cream to the affected area for the seborrheic dermatitis as needed. Advised that he continue with the ustyme Z bar, allowing to sit for 5-10 minutes before rinsing. Patient will follow up in 3 months for re-evaluation. #3 Chronic Dermatitis Advised patient to avoid excessive scratching of the area, he may apply betamethasone 0.05% ointmentto the area twice daily until improved then as needed. We discussed importance of moisturizing, patient will follow-up if the area fails to improve or worsens. PATIENT EDUCATION Ready to learn, no apparent learning barriers were identified; learning preferences include listening. Explained diagnosis and treatment plan; patient expressed understanding of the content. This note represents shared documentation between the assisting nurse and the encounter provider. The content has been reviewed and edited as needed by the provider. HEEL documented in this encounter Plan of Treatment Scheduled Referrals Name Type Priority Associated Order Schedule Diagnoses Dermatology office Outpatient Referral Routine Ex pected: visit (clinic) 07/04/2019 (Approximate), Expires: 04/04/2022 documented as of this encounter Visit Diagnoses Diagnosis Acne Rosacea - Primary Dermatitis Seborrheic Dermatitis documented in this encounter Additional Health Concerns Assessment Noted Time PHQ-9 Depression Total Score: 6 03/20/2014 10:55 AM CS T documented as of this encounter
--- OUTSIDE RECORDS SUMMARY | 2022-02-10 14:41 | XMS_ITS | Encounter Summary ---
:1985 Author Organization [facility] Address [address] [place] [address] Care Team Providers Name Role Phone Elsewhere, Pcp Primary Care Provider Unavailable Encounter Details Date Type Department Care Team Description 06/30/2020 Orders Only [facility]N PCP [facility] Sa rishabh Desouza M.D. [address] [place], [place] [phone] (Wo rk) Social History Tobacco Use Types [...] documented as of this encounter Care Teams Pump Mechanic Relationship Specialty Start Date End Date Elsewhere, Pcp PCP - General Family Medicine 11/04/19 documented as of this encounter
--- OUTSIDE RECORDS SUMMARY | 2022-02-10 14:41 | XMS_ITS | Encounter Summary ---
:1985 Author Organization [facility] Address [address] [place] [address] Care Team Providers Name Role Phone Unavailable Primary Care Provider Unavailable Encounter Details Date Type Department Care Team Description 03/31/2016 Hospital Encounter HX [facility] Bart Church M.D. [address] [place] [phone] (Wo rk) Social History Tobacco Use Types Packs/Day Years Used Date Smoking Tobacco: Every Day Sex Assigned at Date Recorded Male 10/17/2017 10:58 AM CDT documented as of this encounter Last Filed Vital Signs Vital Sign Reading Time Taken Comments Blood Pressure - - Pulse - - Temperature - - Respiratory Rate - - Oxygen Saturation - - Inhaled Oxygen Concentration - - Weight - - Height 166 cm (5' 5.35) 03/31/2016 1:04 PM TITLE OFFICER Body Mass Index - - documented in this encounter Medications at Time of Discharge Medication Sig Dispensed Refills Start Date End Date clonazePAM (KlonoPIN) 2 Twice A Day 0 08/27/2010 mg tablet mometasone (NASONEX) 50 Administer 2 sprays 0 mcg/actuation nasal into each nostril spray daily. ALPRAZolam (XANAX) 0.5 Take 1 tablet by mouth 0 0 03/20/2014 11/04/2019 mg tablet 3 (three) times a day as needed. amphetamine-dextroamphe Take 1 capsule by 0 03/2011/04/2019 tamine (ADDERALL XR) 25 mouth every morning. mg 24 hr capsule buprenorphine-naloxone Place 1 Dose under the 0 0 11/10/2011 11/04/2019 (SUBOXONE) 8-2 mg per tongue 2 (two) times a SL film day. clonazePAM (KlonoPIN) 2 Take 1 tablet by mouth 0 03/20/2014 11/04/2019 mg tablet 2 (two) times a day. DULoxetine (CYMBALTA) Take 1 capsule by 0 015 11/04/[address] capsule mouth daily. documented as of this encounter Plan of Treatment Not on filedocumented as of this encounter Procedures Procedure Name Priority Date/Time Associated Diagnosis Comme nts CT SINUSES WITHOUT Routine 03/31/2016 1:42 PM Res ults for this IV CONTRAST TITLE OFFICER procedure are i n the results section. documented in this encounter Results CT Sinuses without IV Contrast (03/31/2016 1:42 PM TITLE OFFICER) Anatomical Region Laterality Modality Head N/A Computed Tomography Specimen (Source) Anatomical Collection Method Collection Time Re ceived Time Location / / Volume Laterality 03/31/2016 1:42 PM TITLE OFFICER Addenda Addendum by Provider, Delvin Pathak 03/31/2016 1:42 PM TITLE OFFICER RAD^^^OW CT Sinus w o contrast 03/31/2016 13:42:09 Impressions 03/31/2016 3:32 PM TITLE OFFICER 1. Findings that can contribute to nasal airway obstruction. 2. Pansinus disease with obstructed bila teral frontal drainage recesses. 3. Patent bilateral maxillary antrostomi es. Narrative 03/31/2016 3:32 PM TITLE OFFICER EXAM: CT Sinus w/o contrast INDICATION: sinusitis AGE: 30 years-old COMPARISON: None. FINDINGS: Nasal septum deviates to the left anteri megan and to the right in the mid aspect. No spurs. Left inferior turb inate hypertrophy. Postop bilateral uncinectomies with lyle nt maxillary antrostomies. Scattered mucosal thickening within bila teral maxillary sinuses. Right maxillary sinus alveolar recess po steriorly has 21 mm round mucous retention cyst or polyp (series 7 image 49). Partial left anterior ethmoidectomy. Par tial opacification by mucosal thickening of bilateral anterior ethmoid sinuses. Bilateral frontal sinuses are partially opacified by mucosal thickening and bilateral frontal drainag e recesses are obstructed. Left posterior ethmoid air cell has bubb ly secretions. Scattered mucosal thickening in bilateral sphenoid sinuses. There is mucosal thickening in posterior aspects of bilat eral sphenoethmoidal recesses. Procedure Note Antony Perdue M.D. / Lawson Pickard M.D. - 08/22/2016 EXAM: CT Sinus w/o contrast INDICATION: sinusitis AGE: 30 years-old COMPARISON: None. FINDINGS: Nasal septum deviates to the left anteri megan and to the right in the mid aspect. No spurs. Left inferior turb inate hypertrophy. Postop bilateral uncinectomies with lyle nt maxillary antrostomies. Scattered mucosal thickening within bila teral maxillary sinuses. Right maxillary sinus alveolar recess po steriorly has 21 mm round mucous retention cyst or polyp (series 7 image 49). Partial left anterior ethmoidectomy. Par tial opacification by mucosal thickening of bilateral anterior ethmoid sinuses. Bilateral frontal sinuses are partially opacified by mucosal thickening and bilateral frontal drainag e recesses are obstructed. Left posterior ethmoid air cell has bubb ly secretions. Scattered mucosal thickening in bilateral sphenoid sinuses. There is mucosal thickening in posterior aspects of bilat eral sphenoethmoidal recesses. IMPRESSION: 1. Findings that can contribute to nasal airway obstruction. 2. Pansinus disease with obstructed bila teral frontal drainage recesses. 3. Patent bilateral maxillary antrostomi es. Ayanna Hinds(R)(CT), R.TGerman(R) IMG CT PROCEDURES documented in this encounter Visit Diagnoses Not on filedocumented in this encounter Additional Health Concerns Assessment Noted Time PHQ-9 Depression Total Score: 6 03/20/2014 10:55 AM CS T documented as of this encounter
--- OUTSIDE RECORDS SUMMARY | 2022-02-10 14:41 | XMS_ITS | Encounter Summary ---
:1985 Author Organization [facility] Address [address] [place] [address] Care Team Providers Name Role Phone Elsewhere, Pcp Primary Care Provider Unavailable Reason for Referral Outpatient (Routine) - Closed Specialty Diagnoses / Procedures Referred By Contact Refer red To Contact Psychiatry Diagnoses Dependence Polysubstance (HCC) Anxiety Generalized Disorder Depression Major Recurrent (HCC) Attention Deficit With Hyperactivity Disorder Dee Voss APRN, C.N.P. [address] [place] [address] Referral ID Status Reason Start Expiration Visits Visits Date Date Requested Authorized [id number] Closed Insurance 11/04/2019 11/03/2020 1 1 compatability Reason for Visit Reason Comments Other Discuss referral to [facility]. Referral clonazepam. Appointment Request (Routine) - Closed Specialty Diagnoses / Procedures Referred By Contact Refer red To Contact Family Medicine Referral ID Status Reason Start Date Expiration Date Visits Requ ested Visits Authorized [id number] Closed 10/22/2019 10/21/2020 1 1 Encounter Details Date Type Department Care Team Description 11/04/2019 Office Visit Department of Family Dee Voss De pendence Polysubstance (HCC) (Primary Dx); Medicine, [place] APRN, C.N.P. Anxiety Generalized Disorder; Clinic, in [place], [address] Depression Major Recurrent (HCC); [place], [place] Attention Deficit With Hyper activity Disorder [address] [address] [place], [place] [phone] [address] (Work) [phone] Social History Tobacco Use Types Packs/Day Years Used Date Smoking Tobacco: Former Cigarettes 1 Quit : 03/15/2017 Smokeless Tobacco: Former Chew Sex Assigned at Date Recorded Male 10/17/2017 10:58 AM CDT documented as of this encounter Last Filed Vital Signs Vital Sign Reading Time Taken Comments Blood Pressure 110/70 11/04/2019 7:48 AM CDT Pulse 83 11/04/2019 7:48 AM CDT Temperature 36.2 ??C (97.1 ??F) 11/04/2019 7:48 AM CDT Respiratory Rate - - Oxygen Saturation 98% 11/04/2019 7:48 AM CDT Inhaled Oxygen Concentration - - Weight 73.6 kg (162 lb 4.1 oz) 11/04/2019 7:48 AM CDT Height - - Body Mass Index 26.71 04/06/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 - 11/04/2019 8:00 AM CDT SUBJECTIVE CHIEF COMPLAINT / REASON FOR VISIT Request for C referral HISTORY OF PRESENT ILLNESS Tarik Adhikari is a pleasant 33 y.o. male who presents to the clinic today for a referral for counseling and medication management to [facility]. Patient has a longstanding history of anxiety, depression, PTSD, ADHD, and with those polysubstance dependence. He was previously on Adderall, SSRIs, clonazepam, suboxone and nortriptyline. Currently he is just taking clonazepam for anxiety but knows this is nota good snf solution given his history of dependence. He was seeing a psychiatrist in [place] where he lives and the provider has recently left the practice. He would like to wean off of the clonazepam with help over time and re-establish ADHD medication only if appropriate. He had previously worked with [facility] 10 years ago and felt they had a balance between medication and CBT that worked well. PDMP reviewed. Requesting a small bridge of clonazepam today to get enrolled with [facility] for further management moving forward. There are no further concerns at this time. REVIEW OF SYSTEMS Psychiatric/Behavioral: See HPI The following systems were negative: Constitutional, CV, Respiratory CURRENT MEDICATIONS Current Outpatient Medications Medication Sig Dispense Refill ??? clonazePAM (KlonoPIN) 2 mg tablet Take 1 tablet by mouth 2 (two) times a day. ??? famotidine (PEPCID) 20 mg tablet Take 20 mg by mouth 2 (two) times a day. ??? ALPRAZolam (XANAX) 0.5 mg tablet Take 1 tablet by mouth 3 (three) times a day as needed. ??? amphetamine-dextroamphetamine (ADDERALL XR) 30 mg 24 hr capsule Take 30 mg by mouth daily. ??? buprenorphine-naloxone (SUBOXONE) 8-2 mg [address] film [address] 1 Dose under the tongue 2 (two) timesa day. ??? fluticasone (for_FLONASE) 50 mcg/actuation nasal spray Administer 2 sprays into each nostril daily. (Patient not taking: Reported on 04/04/2019 ) 16 g 3 ??? hydrocortisone (HYTONE) 2.5 % cream Apply 1 application topically 2 (two) times a day as needed (Rash). 60 g 3 ??? ketoconazole (NIZORAL) 2 % shampoo Apply 1 application topically 3 (three) times a week. Apply to damp skin, lather, leave on 5 minutes, and rinse 120 mL 6 ??? mometasone (NASONEX) 50 mcg/actuation nasal spray Administer 2 sprays into each nostril daily. ??? multivitamin capsule Take 1 tablet by mouth daily. ??? nortriptyline (PAMELOR) 10 mg capsule Take 20 mg by mouth at bedtime. Patient is taking 2 tabs, 10mg each at bedtime ??? Paroex Oral Rinse 0.12 % mouthwash RINSE WITH 1 CAPFUL FOR 30 SECONDS TWICE DAILY ??? POLYMYXIN B SULF/TRIMETHOPRIM (POLYTRIM OPHT) Administer 1 drop into the right eye every 4 (four) hours. ??? sertraline (ZOLOFT) 50 mg tablet No current facility-administered medications for this visit. ALLERGIES / CONTRAINDICATIONS No Known Allergies Patient Active Problem List Diagnosis ??? Depression Major Recurrent (HCC) ??? Attention Deficit With Hyperactivity Disorder ??? Dependence Polysubstance (HCC) ??? Abuse Tobacco Smoking ??? Acne ??? Anxiety Generalized Disorder ??? Dermatitis ??? Dermatitis Seborrheic ??? Migraine Headache ??? Myopia ??? Sinusitis ??? Posttraumatic Stress Disorder Brief OBJECTIVE VITAL SIGNS BP 110/70 (BP Location: Right arm, Patient Position: Sitting, Cuff Size: Large) Pulse 83 Temp 36.2 ??C (Temporal) Wt 73.6 kg SpO2 98% BMI 26.71 kg/m?? PHYSICAL EXAMINATION General: Alert and oriented. Patient is in no distress. Capable of full communication without difficulty. Patient is polite and cooperative. Appropriately dressed and normal hygiene. ENT: PERRLA. EOMI. Sclera non-icteric. Heart: Regular rate and rhythm. Lungs: Easy effort DIAGNOSTICS None at this time ASSESSMENT / PLAN Diagnosis Plan 1. Dependence Polysubstance (HCC) External referral physician ([facility]) 2. Anxiety Generalized Disorder External referral physician ([facility]) 3. Depression Major Recurrent (HCC) External referral physician ([facility]) 4. Attention Deficit With Hyperactivity Disorder External referral physician ([facility]) PLAN: Was planning on bridging gap for clonazepam prescription until he establishes with HR see however after further PDMP review patient last pickler helper prescription on 09/25/2019 and has two refills remainingwhich he has not obtained. [facility] referral provided. Patient was understanding of and agreeable to the plan of care. 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
--- OUTSIDE RECORDS SUMMARY | 2022-02-10 14:41 | XMS_ITS | Encounter Summary ---
:[address] [facility] Address [address] [place] [address] Care Team Providers Name Role Phone Unavailable Primary Care Provider Unavailable Encounter Details Date Type Department Care Team Description 02/21/2019 Clinical Communication Department of Desean Medellin [place], [place] [address] [place] [id number] [phone] Social History Tobacco Use Types Packs/Day Years Used Date Smoking Tobacco: Former Cigarettes 1 Quit : 03/15/2017 Smokeless Tobacco: Current Chew Sex Assigned at Date Recorded Male 10/17/2017 10:58 AM CDT documented as of this encounter Miscellaneous Notes Telephone Encounter - Елена Rios - 02/26/2019 8:17 AM CST LM for pt that the letter has been prepared and is being mailed to his home address. Copy of the letter left at [employer], also. AL GIVING OFFICER Telephone Encounter - Елена Rios - 02/25/2019 3:50 PM CST Letter still not available at 3:40 pm. AL GIVING OFFICER Telephone Encounter - Елена Rios - 02/25/2019 10:54 AM CST Letter not available yet at 10:50 a.m. Will call pt once letter is available. AL GIVING OFFICER Telephone Encounter - Desean Medellin M.D. 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 Medellin's reply to his request. Pt insisted repeatedly that the doctor needs to do this for me so I won't get in trouble with law.Explained that none of our MD's can write a tinting rx for more than the law allows. Pt will not accept reply. Dr Medellin out of the office this afternoon. Will forward message back to him to address on 02/25/19. AL GIVING OFFICER Telephone Encounter - Desean Medellin M.D. - 02/22/2019 8:20 AM CST He should just get the tinting up to maximum level by law. No rx needed AL GIVING OFFICER Telephone Encounter - Kelley Bryant, C.O.T. - 02/21/2019 5:16 PM CST Is this something you are able to do for this pt? Please advise. AL GIVING OFFICER Telephone Encounter - Kimmy López - 02/21/2019 4:26 PM CST Reason for Communication: Patient called asking to get a prescription for tinting his vehicle windows because he has eye pressure, eye sensitivity and headaches. He was seen last on 08/01/18 and believes he had discussed this with Dr. Medellin Current Can Nursing/Provider leave a detailed message: yes Did the patient refuse triage through Nurse line? (for symptom based concerns): n/a Action Needed: Please advise Name of Medication (if relevant): AL GIVING OFFICER documented in this encounter Plan of Treatment Not on filedocumented as of this encounter Visit Diagnoses Not on filedocumented in this encounter Additional Health Concerns Assessment Noted Time PHQ-9 Depression Total Score: 6 03/20/2014 10:55 AM CS T documented as of this encounter
--- OUTSIDE RECORDS SUMMARY | 2022-02-10 14:41 | XMS_ITS | Encounter Summary ---
:1985 Author Organization [facility] Address [address] [place] [address] Care Team Providers Name Role Phone Unavailable Primary Care Provider Unavailable Reason for Visit Reason Comments Skin Problem redness of face and spots in finney Encounter Details Date Type Department Care Team Description 03/23/2018 Office Visit Department of Kyree Maxwell Seborrh ea (Primary Dermatology in [place] Dx) [place], [place] [address] [place] [address] [phone] Social History Tobacco Use Types Packs/Day Years Used Date Smoking Tobacco: Former Cigarettes 1 Quit : 03/15/2017 Smokeless Tobacco: Current Chew Sex Assigned at Date Recorded Male 10/17/2017 10:58 AM CDT documented as of this encounter H&P Notes Kyree Maxwell M.D. - 03/23/2018 1:15 PM CST DISCLAIMER: Patient was made aware that I am trained as a Family Medicine Specialist and have a special interest in Dermatology. However, I am not a glass mold repairer. Anything beyond the scope of my abilities or comfort level will be referred to a Button Riveter of their choosing. SUBJECTIVE CHIEF COMPLAINT / REASON FOR VISIT Redness on face and then blotchy, also has episodes of face feeling flush HISTORY OF PRESENT ILLNESS Gets this redness of the face as well as dry skin patches in the bear area. Currenly using Ovase facial cleanser with sulfacetamide once daily and no moisturizer currently. His ears are quite flaky anddry as well and irritate him. Has been occurring for approximately a year REVIEW OF SYSTEMS PERTINENT TO DERMATOLOGY REVIEW OF SYSTEMS Constitutional, integumentary, and allergic/immunologic review of systems is negative of systems is otherwise negative except as remarked above or below. PAST MEDICAL/FAMILY/SOCIAL HISTORY PERTINENT TO DERMATOLOGY See HPI OBJECTIVE PHYSICAL EXAM Physical Exam General: Alert and oriented x3. Well-nourished and groomed, in no acute distress. SKIN: A focused skin examination was performed of the area(s) of concern. Face and ears show seborrheic dermatitis with build-up and flaking; ears show blaise derm in the outer areas and canals. ASSESSMENT / PLAN IMPRESSION/REPORT/PLAN 1. Rash was evaluated today, and working diagnosis is seborrheic dermatitis. Plan: Recommended Z-bartwice daily to help reduce yeast. Use Vanicream Lite as needed for moisture. For the ears, I prescribed DermOtic oil 0.01% drops 1-2 times daily as needed. 2. Derm Follow Up Frequency: Only if needed for new or recurrent skin issues. Kyree Maxwell MD This note represents shared documentation between the assisting nurse and the encounter provider. The content has been reviewed and edited as needed by the provider. HANGER documented in this encounter Plan of Treatment Not on filedocumented as of this encounter Visit Diagnoses Diagnosis Seborrhea - Primary documented in this encounter Additional Health Concerns Assessment Noted Time PHQ-9 Depression Total Score: 6 03/20/2014 10:55 AM CS T documented as of this encounter
--- OUTSIDE RECORDS SUMMARY | 2022-02-10 14:41 | XMS_ITS | Encounter Summary ---
:1985 Author Organization [facility] Address [address] [place] [address] Care Team Providers Name Role Phone Unavailable Primary Care Provider Unavailable Reason for Referral Outpatient (Routine) - Closed Specialty Diagnoses / Procedures Referred By Contact Refer red To Contact Ophthalmology Konrad Carter M.D. [facility] [address] [place] [address] Referral ID Status Reason Start Date Expiration Date Visits Requ ested Visits Authorized [id number] Closed 03/24/2017 09/20/2017 1 1 UTIVE RELATIONS SPECIALIST Reason for Visit Reason Comments Eye Exam Appointment Request (Routine) - Closed Specialty Diagnoses / Procedures Referred By Contact Refer red To Contact Ophthalmology Referral ID Status Reason Start Date Expiration Date Visits Requ ested Visits Authorized [id number] Closed 03/20/2017 09/16/2017 1 1 Encounter Details Date Type Department Care Team Description 03/24/2017 Office Visit Department of Konrad Carter Astigmatism Regular Ophthalmology in [place] Bilateral ([place], [place] [address] [place] [address] Dx) [address] [place] [phone] [phone] Social History Tobacco Use Types Packs/Day Years Used Date Smoking Tobacco: Every Day Sex Assigned at Date Recorded Male 10/17/2017 10:58 AM CDT documented as of this encounter Progress Notes Konrad Carter M.D. - 03/24/2017 1:00 PM CST Tarik Adhikari was seen today for Eye Exam #1 Astigmatism Regular Bilateral Plan: Update glasses as desired. U/v protection. Ocular lubricants twice daily. F/u one year for routine exam or as needed. cex/ref UTIVE RELATIONS SPECIALIST documented in this encounter Plan of Treatment Scheduled Referrals Name Type Priority Associated Order Schedule Diagnoses Ophthalmology office Outpatient Referral Routine Expected: visit (clinic) 03/24/2018 (Approximate), Expires: 03/24/2020 documented as of this encounter Visit Diagnoses Diagnosis Astigmatism Regular Bilateral - Primary documented in this encounter Additional Health Concerns Assessment Noted Time PHQ-9 Depression Total Score: 6 03/20/2014 10:55 AM DANUTA T documented as of this encounter
--- OUTSIDE RECORDS SUMMARY | 2022-02-10 14:41 | XMS_ITS | Encounter Summary ---
:1985 Author Organization [facility] Address [address] [place] [address] Care Team Providers Name Role Phone Elsewhere, Pcp Primary Care Provider Unavailable Reason for Visit Reason Comments Medication Question Encounter Details Date Type Department Care Team Description 11/20/2019 Clinical Communication Department of Dee Voss Family Medicine, ZA Anna, C.N.PGerman [facility], [address] in [facility] [address] [phone] [place], [place] (Work) [phone] Social History Tobacco Use Types Packs/Day Years Used Date Smoking Tobacco: Former Cigarettes 1 Quit : 03/15/2017 Smokeless Tobacco: Former Chew Sex Assigned at Date Recorded Male 10/17/2017 10:58 AM CDT documented as of this encounter Miscellaneous Notes Telephone Encounter - Jo-Ann Taylor L.P.N. - 11/20/2019 4:11 PM CDT This has been refilled Telephone Encounter - Mauricio Leon - 11/20/2019 11:04 AM CDT Reason for Communication: patient says he has been in contact with [facility] but they were not able to give him an appt date yet. [facility] told patient to contact provider to see if she would send another refill. Patient says [facility] told him provider can contact them to verify this information. Shelbie at intake ph: Referral did go through, so waiting on a provider from [facility] to set up a virtual appt. PHARM: [facility] Current Can Nursing/Provider leave a detailed message?: yes Did the patient refuse triage through Nurse line? (for symptom based concerns): na Action Needed: please call with any questions Name of Medication (if relevant): clonazepam documented in this encounter Plan of Treatment Not on filedocumented as of this encounter Visit Diagnoses Not on filedocumented in this encounter Additional Health Concerns Assessment Noted Time PHQ-9 Depression Total Score: 10 11/04/2019 9:18 AM CD T documented as of this encounter Care Teams Beck Tender Relationship Specialty Start Date End Date Elsewhere, Pcp PCP - General Family Medicine 11/04/19 documented as of this encounter
--- OUTSIDE RECORDS SUMMARY | 2022-02-10 14:41 | XMS_ITS | Encounter Summary ---
:1985 Author Organization [facility] Address [address] [place] [address] Care Team Providers Name Role Phone Unavailable Primary Care Provider Unavailable Encounter Details Date Type Department Care Team Description 03/31/2016 Hospital Encounter HX [facility] Bart Lira M.D. [address] [place] [address] (Wo rk) Social History Tobacco [...] - Height 166 cm (5' 5.35) 03/31/2016 1:46 PM SET BUILDER Body Mass Index - - documented in [...] Name Priority Date/Time Associated Diagnosis Comme nts US HEAD NECK SOFT Routine 03/31/2016 1:49 PM Resu lts for this TISSUE SET BUILDER procedure are i n the results section. documented in this encounter Results US Head Neck Soft Tissue (03/31/2016 1:49 PM SET BUILDER) Anatomical Region Laterality Modality Head and Neck N/A Ultrasound Specimen (Source) Anatomical Collection Method Collection Time Re ceived Time Location / / Volume Laterality 03/31/2016 1:49 PM SET BUILDER Addenda Addendum by Provider, Delvin Pathak 03/31/2016 1:49 PM SET BUILDER RAD^^^OW US Soft Tissue Neck 03/31/2016 13:49:52 Impressions 03/31/2016 2:42 PM SET BUILDER Targeted ultrasound of the soft tissues of the right neck record spine with the area pa lpable concern as identified by the patient located within the high a spect of the right carotid artery bifurcation there is a 1.8 cm x 8 mm x 1.4 cm moderately prominent right-sided cervical lymph nod e. Typically reactive in etiology. If clinically indicated could consider follow-up imaging for verification of normalization. Narrative 03/31/2016 2:42 PM SET BUILDER EXAM: ??US Soft Tissue Neck AGE: ??30 years old. GENDER: ??Male. INDICATION: ??Right cervical node COMPARISON: ??CT of the sinuses April 03, 2015 FINDINGS/ Procedure Note Abdiel Stein M.D. / Provider, Tamra mckeon M.D. - 08/22/2016 EXAM: US Soft Tissue Neck AGE: [age] years old. GENDER: Male. INDICATION: Right cervical node COMPARISON: CT of the sinuses March FINDINGS/IMPRESSION: Targeted ultrasound of the soft tissues of the right neck record spine with the area pa lpable concern as identified by the patient located within the high a spect of the right carotid artery bifurcation there is a 1.8 cm x 8 mm x 1.4 cm moderately prominent right-sided cervical lymph nod e. Typically reactive in etiology. If clinically indicated could consider follow-up imaging for verification of normalization. Filemon Chou Jr. RNoreen.M.S. IMG US PROCEDURES documented in this encounter Visit Diagnoses Not on filedocumented in this encounter Additional Health Concerns Assessment Noted Time PHQ-9 Depression Total Score: 6 03/20/2014 10:55 AM CS T documented as of this encounter
--- OUTSIDE RECORDS SUMMARY | 2022-02-10 14:41 | XMS_ITS | Encounter Summary ---
:1985 Author Organization [facility] Address [address] [place] [address] Care Team Providers Name Role Phone Unavailable Primary Care Provider Unavailable Reason for Visit Reason Comments COVID Inquiry Encounter Details Date Type Department Care Team Description 10/22/2019 Clinical Communication Department of [facility], David Anna, COVID Inquiry Medicine, [place] [facility], [facility] [address] [place], [place] [address] [address] [place], [place] [phone] [address] (Work) [phone] Social History Tobacco Use Types Packs/Day Years Used Date Smoking Tobacco: Former Cigarettes 1 Quit : 03/15/2017 Smokeless Tobacco: Former Chew Sex Assigned at Date Recorded Male 10/17/2017 10:58 AM CDT documented as of this encounter Miscellaneous Notes Telephone Encounter - Ne Christianson - 10/22/2019 2:31 PM CDT ([facility] and [facility] locations only: If the patient is not having symptoms and is requesting COVID-19 Nasal Swab testing only, use the process listed [facility] the [facility] Test OTG COVID-19 [place] Patient Requesting COVID PCR Test). 1. Do you have a pending COVID test because you had symptoms or exposure to someone with COVID or you have tested positive for COVID in the last 30 days? no 2. In the past 14 days, do you, anyone in the household, or anyone you have had prolonged exposure have any of the following? a. Fever greater than or equal to 37.8 C (100.0 F)? no b. New symptoms (Specifically: headache, cough, shortness of breath, respiratory distress, sore throat, diarrhea, nausea, vomiting, chills and repeated shaking with chills, myalgia's (muscle aches), loss of smell, or change or loss of taste sensation)? no c. Had close contact with a patient with known or possible COVID-19 in the last 14 days? no Route reply to: Scheduling Contact Number: [phone] documented in this encounter Plan of Treatment Not on filedocumented as of this encounter Visit Diagnoses Not on filedocumented in this encounter Additional Health Concerns Assessment Noted Time PHQ-9 Depression Total Score: 6 03/20/2014 10:55 AM CS T documented as of this encounter
--- OUTSIDE RECORDS SUMMARY | 2022-02-10 14:41 | XMS_ITS | Encounter Summary ---
:1985 Author Organization [facility] Address [address] [place] [address] Care Team Providers Name Role Phone Unavailable Primary Care Provider Unavailable Reason for Visit Reason Comments Skin Problem Rosacea, blaise derm on face. Outpatient (Routine) - Closed Specialty Diagnoses / Procedures Referred By Contact Refer red To Contact Dermatology Nelda Alvarado APRN C.N.PGerman, [facility] M.S.N. [address] [place] [address] Referral ID Status Reason Start Date Expiration Date Visits Requ ested Visits Authorized [id number] Closed 04/04/2019 04/03/2020 1 1 Encounter Details Date Type Department Care Team Description 08/30/2019 Office Visit Department of Nelda Alvarado, Dermatitis Blaise orrheic (Primary Dx); Dermatology in [place].N.Emiliano, Rosacea; [place], [place] M.S.N. Dermatitis; [address] [place] [address] [place], [place] [phone] Social History Tobacco Use Types Packs/Day Years Used Date Smoking Tobacco: Former Cigarettes 1 Quit : 03/15/2017 Smokeless Tobacco: Former Chew Sex Assigned at Date Recorded Male 10/17/2017 10:58 AM CDT documented as of this encounter Progress Notes Nelda Alvarado APRN, C.N.P., M.S.N. - 08/30/2019 2:45 PM CDT SUBJECTIVE CHIEF COMPLAINT / REASON FOR VISIT Skin Problem (Rosacea, blaise derm on face. ). HISTORY OF PRESENT ILLNESS Tarik Adhikari is a 33 y.o. male who presents for follow-up evaluation of seborrheic dermatitis and rosacea. His main concern is redness and scaling around his finney, he also has recurring dermatitison his hands and right knee. He has not been applying any creams to this area, he has previously used betamethasone ointment which seemed to help. He also noticed a circular scaly/itchy lesion on his left biceps. Per nursing notes: How long has rash been present, any symptoms (pain, bleeding, or itching)? : 2 years. Last seen Mar 2019 General location of rash: face Any known contacts/exporure: no What treatments/medication has patient tried: vanicream bar, free and clear shampoo, Ovase Was patient referred, self referred, or a returning derm patient? : returning patient Personal or family history of eczema/psoriasis, or other skin condition? : Yes - personal on hand. New spot on upper arm. Maybe two weeks Any other skin concerns today? : Yes - shampoo for finney. The following portions of the patient's history were reviewed and updated as appropriate: allergies,current medications, family history, medical history, social history and problem list. REVIEW OF SYSTEMS Constitutional, integumentary, and allergic/immunologic review of systems is negative except as otherwise remarked above or below. OBJECTIVE PHYSICAL EXAM General: Well-appearing male in no acute distress. Well groomed and dressed and answers appropriately to questions. Skin: This skin was examined and palpated where appropriate, skin findings as described below: There is mild waxy scaling and erythema along the finney and mustache. On the right anterior lower knee there is a thick, scaly, slightly erythematous and excoriated plaque. There is mild erythema and scaling over the left palm. On the left triceps there is a circular erythematous scaly patch with raised borders. There is mild to moderate flushing on the bilateral cheeks, nose, and forehead. ?? ASSESSMENT / PLAN #1 Dermatitis Seborrheic Patient has tried multiple treatments in the past without any significant improvement, he is interested in a shampoo to help with the mustache/finney area. Advised that he use ketoconazole 2% shampoo tothe affected area allowing to sit for 5-10 minutes before rinsing. He may also apply hydrocortisone 2.5% cream to the area as needed for itching and redness. #2 Rosacea Advised patient to continue monitoring and discussed the importance of photoprotection and avoidanceof triggers. #3 Chronic Dermatitis Advised patient to avoid excessive scratching of the area, he may apply betamethasone 0.05% ointmentto the area twice daily until improved then as needed. We discussed importance of moisturizing, patient will follow-up if the area fails to improve or worsens. #4 Tinea Corporis Advised patient to apply on [id number] antifungal cream such as Lamisil or Lotrimin 1% cream twice daily until clear then as needed. Advised patient to follow-up should symptoms fail to improve or worsen. PATIENT EDUCATION Ready to learn, no apparent learning barriers were identified; learning preferences include listening. Explained diagnosis and treatment plan; patient expressed understanding of the content. This note represents shared documentation between the assisting nurse and the encounter provider. The content has been reviewed and edited as needed by the provider. Total time spent patient 25 minutesof which approximately 15 minutes was spent in counseling. documented in this encounter Plan of Treatment Not on filedocumented as of this encounter Visit Diagnoses Diagnosis Dermatitis Seborrheic - Primary Rosacea Dermatitis Tinea Corporis documented in this encounter Additional Health Concerns Assessment Noted Time PHQ-9 Depression Total Score: 6 03/20/2014 10:55 AM CS T documented as of this encounter
--- OUTSIDE RECORDS SUMMARY | 2022-02-10 14:41 | XMS_ITS | Encounter Summary ---
:1985 Author Organization [facility] Address [address] [place] [address] Care Team Providers Name Role Phone Unavailable Primary Care Provider Unavailable Reason for Visit Reason Comments Sinusitis Encounter Details Date Type Department Care Team Description 01/29/2019 Office Visit Department of Travis Church Sinusitis Oleg larios (Primary Dx); Otorhinolaryngology in [place] Deformity Nasal Septal; [place], [place] [address] Headache Sinus [address] [place] [phone] Social History Tobacco Use Types Packs/Day Years Used Date Smoking Tobacco: Former Cigarettes 1 Quit : 03/15/2017 Smokeless Tobacco: Current Chew Sex Assigned at Date Recorded Male 10/17/2017 10:58 AM CDT documented as of this encounter Last Filed Vital Signs Vital Sign Reading Time Taken Comments Blood Pressure 126/82 01/29/2019 4:47 PM CHALK MOLDING MACHINE OPERATOR Pulse 88 01/29/2019 4:47 PM CHALK MOLDING MACHINE OPERATOR Temperature 36.9 ??C (98.4 ??F) 01/29/2019 4:47 PM CHALK MOLDING MACHINE OPERATOR Respiratory Rate - - Oxygen Saturation - - Inhaled Oxygen Concentration - - Weight - - Height - - Body Mass Index - - documented in this encounter Progress Notes Travis Church M.D. - 01/29/2019 5:00 PM CST CHIEF COMPLAINT / REASON FOR VISIT Tarik Adhikari is a 33 y.o. male who presents for evaluation of Sinusitis. SUBJECTIVE Patient is here for re-evaluation of his nose and sinuses. She had problems with headaches in the frontal temporal region and in the midface. Describes is squeezing type pressure. He needs rested a dark room when this occurs. She had previous nasal sinus surgery x2. History of opioid addiction. He waslast seen in 2017. CT scan of nose and sinuses at that time revealed postoperative changes from his previous surgery. Maxillary antra were clear. He had bilateral frontal ethmoid and sphenoid disease which was mild. He had swelling of the septal mucosa. He had hypertrophy of the left inferior and middle turbinate. He was treated with Augmentin at that time. He was not seen in follow-up until now. He smokes. No Known Allergies Current Outpatient Medications Medication Sig Dispense Refill ??? clonazePAM (KlonoPIN) 2 mg tablet Take 1 tablet by mouth 2 (two) times a day. ??? fluticasone (for_FLONASE) 50 mcg/actuation nasal spray Administer 2 sprays into each nostril daily. 16 g 3 ??? metroNIDAZOLE (METROCREAM) 0.75 % cream Apply 1 application topically 2 (two) times a day. 45 g 3 ??? ALPRAZolam (XANAX) 0.5 mg tablet Take 1 tablet by mouth 3 (three) times a day as needed. ??? amphetamine-dextroamphetamine (ADDERALL XR) 25 mg 24 hr capsule Take 1 capsule by mouth every morning. ??? amphetamine-dextroamphetamine (ADDERALL XR) 30 mg 24 hr capsule Take 30 mg by mouth daily. ??? buprenorphine-naloxone (SUBOXONE) 8-2 mg per SL film [address] 1 Dose under the tongue 2 (two) timesa day. ??? DULoxetine (CYMBALTA) [address] capsule Take 1 capsule by mouth daily. ??? fluocinolone acetonide oil (DERMOTIC) 0.01 % otic oil Administer 5 drops into each ear 2 (two) times a day as needed (itching). (Patient not taking: Reported on 12/31/2018 ) 20 mL 1 ??? mometasone (NASONEX) 50 mcg/actuation nasal spray Administer 2 sprays into each nostril daily. ??? multivitamin capsule Take 1 tablet by mouth daily. ??? POLYMYXIN B SULF/TRIMETHOPRIM (POLYTRIM OPHT) Administer 1 drop into the right eye every 4 (four) hours. ??? sertraline (ZOLOFT) 50 mg tablet No current facility-administered medications for this visit. OBJECTIVE Vitals: 01/29/19 1647 BP: 126/82 BP Location: Right arm Patient Position: Sitting Cuff Size: Regular Pulse: 88 Temp: 36.9 ??C TempSrc: Temporal There is no height or weight on file to calculate BMI. General: Healthy-appearing adult male in no acute distress. Nose external nose is normal. Intranasal exam reveals septal deformity to the left side in area 1, 2, 3 and 4. Postop changes of the right inferior turbinate anterior tip. No polyps or drainage noted. Oral cavity: Normal. Oropharynx: Normal. Indirect nasopharyngoscopy: Normal without drainage. Laryngoscopy: Normal. Neck: Normal to palpation. ASSESSMENT / PLAN #1 Sinusitis Chronic #2 Deformity Nasal Septal #3 Headache Sinus Discussed diagnosis and exam findings with patient. Would recommend CT scan of the nose and sinuses with follow-up to review. He was questioning other pain medicines besides acetaminophen and ibuprofen. With his history of opioid addiction I am reluctant to prescribe any narcotics for his pain. Advised trial of Aleve. May need to consider headache clinic is CT scan is unremarkable. Travis Church M.D. 01/30/2019 8:35 AM K MOLDING MACHINE OPERATOR documented in this encounter Plan of Treatment Not on filedocumented as of this encounter Visit Diagnoses Diagnosis Sinusitis Chronic - Primary Deformity Nasal Septal Headache Sinus documented in this encounter Additional Health Concerns Assessment Noted Time PHQ-9 Depression Total Score: 6 03/20/2014 10:55 AM CS T documented as of this encounter
--- OUTSIDE RECORDS SUMMARY | 2022-02-10 14:41 | XMS_ITS | Encounter Summary ---
:1985 Author Organization [facility] Address [address] [place] [address] Care Team Providers Name Role Phone Elsewhere, Pcp Primary Care Provider Unavailable Encounter Details Date Type Department Care Team Description 11/19/2019 Clinical Communication Department of [facility], David Anna, Medicine, [place] [facility], in [place], [address] [place], [place] [address] [address] [place], [place] [phone] (Work) [phone] Social History Tobacco Use Types Packs/Day Years [...] documented as of this encounter Care Teams Zmt Operator Relationship Specialty Start Date End Date Elsewhere, Pcp PCP - General Family Medicine 11/04/19 documented as of this encounter
--- OUTSIDE RECORDS SUMMARY | 2022-02-10 14:42 | XMS_ITS | Encounter Summary ---
:1985 Author Organization [facility] Address [address] [place] [address] Care Team Providers Name Role Phone Unavailable Primary Care Provider Unavailable Encounter Details Date Type Department Care Team Description 03/26/2013 Hospital Encounter HX [facility] Tania Franklin M.D. Social History Tobacco Use Types Packs/Day Years Used Date Smoking Tobacco: Never Assessed Sex Assigned at Date Recorded Male 10/17/2017 10:58 AM CDT documented as of this encounter Last Filed Vital Signs Vital Sign Reading Time Taken Comments Blood Pressure 112/68 03/26/2013 4:12 PM BEHAVIORAL HEALTH CASE MANAGER Pulse 84 03/26/2013 4:12 PM BEHAVIORAL HEALTH CASE MANAGER Temperature - - Respiratory Rate 18 03/26/2013 4:12 PM BEHAVIORAL HEALTH CASE MANAGER Oxygen Saturation - - Inhaled Oxygen Concentration - - Weight 64.2 kg (141 lb 8.6 oz) 03/26/2013 4:12 PM BEHAVIORAL HEALTH CASE MANAGER Height - - Body Mass Index 23.3 01/14/2013 4:02 PM BEHAVIORAL HEALTH CASE MANAGER documented in this encounter Medications at Time of Discharge Medication Sig Dispensed Refills Start Date End Date clonazePAM (KlonoPIN) 2 Twice A Day 0 08/27/2010 mg tablet buprenorphine-naloxone Place 1 Dose under 0 11/0911/04/2019 (SUBOXONE) 8-2 mg per SL the tongue 2 (two) film times a day. documented as of this encounter Progress Notes Federico Andino M.D. - 03/26/2013 4:05 PM CST [id number] CHIEF COMPLAINT/REASON FOR VISIT Follow up anxiety, depression, ADHD HISTORY OF PRESENT ILLNESS Alejandra is a 27-year-old male presenting today for a followup on his anxiety, depression and ADHD. He has now moved to [place], stating he was having some problems with the people he was living with in his apartment. He continues to have panic attacks that he describes as feeling this terrible crawling, tickling feeling going up his neck, with his neck and back muscles going into spasm. This goes up to his head with feelings of his jaw and throat tightening. He has not been able to figure out any type of trigger or anything that helps, except his Xanax. He admits with the added stress of moving he has had more panic attacks and has used a couple more of his Xanax. He has thought continued to not need to go to the ER. 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 Unfortunately he really has not been able to work many hours. He is hopinghe will be able to stay on and do yard work this summer, and he definitely feels when he has been outside and exercising it has helped his anxiety and mental health issues. He found Jn difficult in that he does not have a good relationship with his mother who apparently has some mental health issues as well. He was telling me he bought his half-sister [place] gifts in which his mother returned and bought something for herself. Now that he is living in [place] and does wish to change his pharmacy to [facility] in [place], so as noted that will now be where he will get all of his prescriptions filled. He continues to meet monthly with the physician prescription his Suboxone and gets his urine drug screens done monthly. MEDICATIONS Reviewed and updated in the EMR dated 03/26/13 ALLERGIES Reviewed and updated in the EMR dated 03/26/13 VITAL SIGNS WEIGHT: 64.2 kg TEMP: 36.7 DegC PULSE: 84 /min RESP RATE: 18 /min SYSTOLIC: 112 mmHg DIASTOLIC: 68 mmHg PHYSICAL EXAMINATION GENERAL: Well-developed male in no acute distress. IMPRESSION/REPORT/PLAN 1. ADHD Plan: Continue with Adderall XR 25mg daily. Follow up in 3 months. 2. Anxiety Plan: I have come to the conclusion that he does function best on his current medications and efforts to have him decrease his dosing seems to increase his anxiety. Hopefully if he can manage to obtainand maintain employment, that may of most benefit to him and we may be able to decrease his benzodiazepine use then, but I don't feel it would be beneficial to do at this time. 3. Depression Plan: Continue with Zoloft. Follow up as needed. This document serves as a record of services personally performed by Dr. Federico Franklin. It was created on their behalf by Stephanie Solomon, a trained behavioral medical director. The creation of this record is based on the scribe's personal observations and the provider's statements to them. This document has been checked and approved by the attending provider. Federico Franklin M.D./rakesh Electronically Signed By: FEDERICO FRANKLIN MD On: 03/26/2013 07:38 PM Source: [facility] MHSDOLBEYNONRADSYS Document Id: [id number] VIORAL HEALTH CASE MANAGER documented in this encounter Miscellaneous Notes Miscellaneous - Federico Andino M.D. - 03/26/2013 4:46 PM BEHAVIORAL HEALTH CASE MANAGER Ambulatory Patient Summary [address] [address] Visit Information Name: ALEJANDRA ADHIKARI [facility] Number: [id number] Current Date: 03/26/2013 16:46:31 Physicians Attending Provider: FEDERICO FRANKLIN MD Primary Care Provider: FEDERICO FRANKLIN MD LYLE ALEJANDRA CONNERCHINO has been given the following list of [...] Instructions/Comments/Notes for Patient Medication Changes/Routing ALPRAZolam (Xanax 1 mg oral tablet) 1 Tablet(s), Oral, two times a day anxiety Routed to Printer buprenorphine-naloxone (Suboxone 8 mg-2 mg sublingual film) 1 Each, Sublingual, two times a day For addiction (dissolve under the tongue) clonazePAM (Klonopin 2 mg oral tablet) 1 Tablet(s), Oral, two times a day Anxiety Routed to Printer dextroamphetamine-amphetamine (Adderall XR 25 mg oral capsule, extended release) 1 cap, Oral, once aday (in the morning) ADHD dextroamphetamine-amphetamine (Adderall XR 25 mg oral capsule, extended release) 1 cap, Oral, once aday (in the morning) ADHD Routed to Printer ketoconazole topical (ketoconazole 2% topical cream) 1 sadia, Topical, once a day ondansetron (Zofran 4 mg oral tablet) 1 Tablet(s), Oral, every 8 hours as needed for Nausea sertraline (sertraline 100 mg oral tablet) 1.5 Tablet(s), Oral, once a day anxiety, depression sodium sulfacetamide topical (sulfacetamide sodium 10% topical soap) 1 sadia, Topical, two times a daywash face gently once or twice a day. Stop Taking the Following Medications: Medication list as of 03-26-13 16:46 Attention: If you have any medications at home that are not on this list, DO NOT take them until youcontact your provider for clarification. Give a copy of your medication list to your primary care provider. Update your medication list any time medications or doses are changed and carry your medication list at all times in case of emergency. Your Allergies & Intolerances Substance Reaction Symptoms Category Comments NSAIDs Drug Your Problem List Problem Status Onset Comments Polysubstance dependence, unspecified Active Headache, migraine NOS Active Myopia Active 03/10/2010 Chronic sinusitis NOS Active Tobacco abuse Active Recurrent major depression NOS Active 12/10/2010 Anxiety disorder, generalized Active 04/28/2011 ADHD Active 04/28/2011 Acne NOS Active 02/27/2012 Dermatitis / Eczema NOS Active 02/27/2012 Dermatitis Seborrhea Active Your Upcoming Appointments Date Time Location Reason Provider 04/26/2013 14:15 [facility] D[facility] rck seborrhea [facility] [place], Ama Dove Attention: Contact your local Clinic if further appointment detail needed. Your Goals/Additional instructions: Source: [facility] POWERCHART Document Id: [id number] VIORAL HEALTH CASE MANAGER Miscellaneous - Federico Andino M.D. - 03/26/2013 4:46 PM BEHAVIORAL HEALTH CASE MANAGER Ambulatory Depart Summary [facility] [address] [place] [id number] Visit Information Name: ALEJANDRA ADHIKARI [facility] Number: [id number] Visit Date: 03/26/2013 16:46:29 Attending Provider: FEDERICO FRANKLIN MD Primary Care Provider: FEDERICO FRANKLIN MD ALEJANDRA ADHIKARI has been given the following list of medications: Your Medications It is important to take your medications as directed. Use a pill box or chart to help remind you to take your medications. Please let your doctor or nurse know if you have problems taking your medications. Medication/Strength How to Take Indications/Special Instructions/Comments/Notes for Patient Medication Changes/Routing ALPRAZolam (Xanax 1 mg oral tablet) 1 Tablet(s), Oral, two times a day anxiety Routed to Printer buprenorphine-naloxone (Suboxone 8 mg-2 mg sublingual film) 1 Each, Sublingual, two times a day For addiction (dissolve under the tongue) clonazePAM (Klonopin 2 mg oral tablet) 1 Tablet(s), Oral, two times a day Anxiety Routed to Printer dextroamphetamine-amphetamine (Adderall XR 25 mg oral capsule, extended release) 1 cap, Oral, once aday (in the morning) ADHD dextroamphetamine-amphetamine (Adderall XR 25 mg oral capsule, extended release) 1 cap, Oral, once aday (in the morning) ADHD Routed to Printer ketoconazole topical (ketoconazole 2% topical cream) 1 sadia, Topical, once a day ondansetron (Zofran 4 mg oral tablet) 1 Tablet(s), Oral, every 8 hours as needed for Nausea sertraline (sertraline 100 mg oral tablet) 1.5 Tablet(s), Oral, once a day anxiety, depression sodium sulfacetamide topical (sulfacetamide sodium 10% topical soap) 1 sadia, Topical, two times a daywash face gently once or twice a day. Stop Taking the Following Medications: Medication list as of 03-26-13 16:46 Attention: If you have any medications at home that are not on this list, DO NOT take them until youcontact your provider for clarification. Give a copy of your medication list to your primary care provider. Update your medication list any time medications or doses are changed and carry your medication list at all times in case of emergency. Additional Information: Source: [facility] Vizerra Document Id: [id number] VIORAL HEALTH CASE MANAGER Miscellaneous - Conversion, Historical Provider Ser - 03/26/2013 4:12 PM BEHAVIORAL HEALTH CASE MANAGER Adult Java Application Engineer Intake/History Adult Java Application Engineer Intake/History Entered On: 03/26/2013 16:16 BEHAVIORAL HEALTH CASE MANAGER Performed On: 03/26/2013 16:12 BEHAVIORAL HEALTH CASE MANAGER by IVELISSE CABRAL Intake Chief Complaint : Med refills and swithching pharmacies as moving to [place] Temperature Oral : 36.7 DegC(Converted to: 98.1 DegF) Peripheral Pulse Rate : 84 /min Respiratory Rate : 18 /min Heart Rhythm : Regular Systolic Blood Pressure : 112 mmHg Diastolic Blood Pressure : 68 mmHg NIBP Mean : 83 mmHg BP Location : Right upper extremity Blood Pressure Cuff Size : Large Actual Weight : 64.2 kg(Converted to: 141 lb 9 oz) Weight Source : Standing scale Dosing Weight Clinic : 64.2 kg IVELISSE CABRAL - 03/26/2013 16:12 BEHAVIORAL HEALTH CASE MANAGER General Info Information Given By : Patient Languages : Maori IVELISSE CABRAL 03/26/2013 16:12 BEHAVIORAL HEALTH CASE MANAGER Subjective Pain Symptoms : No IVELISSE CABRAL 03/26/2013 16:12 BEHAVIORAL HEALTH CASE MANAGER Dependent Habits Tobacco Use/Currently Using : No Exposure to Tobacco Smoke : Patient smokes Smoking Status : Current every day smoker IVELISSE CABRAL 03/26/2013 16:12 BEHAVIORAL HEALTH CASE MANAGER Tobacco Use Grid Type : Cigarettes Cigarette Use Packs/Day : 0.5 IVELISSE CABRAL 03/26/2013 16:12 BEHAVIORAL HEALTH CASE MANAGER Caffeine Use Grid Caffeine Use : Current Type : Soft drinks Frequency : Daily Amount : 3 cans daily IVELISSE CABRAL 03/26/2013 16:12 BEHAVIORAL HEALTH CASE MANAGER Recreational Drug Use Grid Drug Use : None IVELISSE CABRAL 03/26/2013 16:12 BEHAVIORAL HEALTH CASE MANAGER Source: [facility] Retention EducationCHART Document Id: [id number] BEHAVIORAL HEALTH CASE MANAGER!37 documented in this encounter Plan of Treatment Not on filedocumented as of this encounter Visit Diagnoses Not on filedocumented in this encounter Additional Health Concerns Assessment Noted Time PHQ-9 Depression Total Score: 7 01/14/2013 4:05 PM BEHAVIORAL HEALTH CASE MANAGER documented as of this encounter
--- OUTSIDE RECORDS SUMMARY | 2022-02-10 14:42 | XMS_ITS | Encounter Summary ---
:1985 Author Organization [facility] Address [address] [place] [address] Care Team Providers Name Role Phone Unavailable Primary Care Provider Unavailable Encounter Details Date Type Department Care Team Description 03/29/2016 Hospital Encounter HX [facility] Bart Craig M.D. [address] [place], [place] [phone] (Wo rk) Social History Tobacco Use Types Packs/Day Years Used Date Smoking Tobacco: Every Day Sex Assigned at Date Recorded Male 10/17/2017 10:58 AM CDT documented as of this encounter Last Filed Vital Signs Vital Sign Reading Time Taken Comments Blood Pressure 124/64 03/29/2016 2:14 PM SOLID FIBER PASTER OPERATOR Pulse 73 03/29/2016 2:03 PM SOLID FIBER PASTER OPERATOR Temperature - - Respiratory Rate - - Oxygen Saturation - - Inhaled Oxygen Concentration - - Weight - - Height 166 cm (5' 5.35) 03/29/2016 2:14 PM SOLID FIBER PASTER OPERATOR Body Mass Index - - documented in [...] mouth daily. documented as of this encounter Progress Notes Travis Craig M.D. - 03/29/2016 1:55 PM CST [id number] CHIEF COMPLAINT/REASON FOR VISIT Sinus problems. HISTORY OF PRESENT ILLNESS Patient is a 30-year-old male here with his father here for evaluation of his nose and sinuses. Lastseen by myself in August of 2013 for nasal obstruction, septal deformity, chronic rhinitis and turbinate hypertroph, status post previous nasal surgery x2. Two weeks ago he had onset of blurred vision with pain and pressure behind the eyes and swelling around the frontal and cheek region on the left side. He also had significant sensitivity to light. He was seen in the emergency room and was given treatment for migraine and this resolved. He had a history of a CT sinus scan 1 year ago which revealed some mucosal swelling of the frontal sinuses. No problems with drainage. No other headaches or pain. MEDICATIONS Reviewed in the ambulatory summary page today in the EMR. ALLERGIES Reviewed in the ambulatory summary page today in the EMR. SOCIAL HISTORY Patient has a girlfriend. He uses vaping instead of tobacco. PHYSICAL EXAMINATION GENERAL: Healthy-appearing adult male. Alert, oriented, no acute distress. Multiple skin tattoos. HEENT: Skin of the head and neck is otherwise normal. Head is normocephalic. Vocal quality normal. Respirations unlabored. Ears normal. Nose: External nose is straight. Good dorsal and tip support. Intranasal exam reveals septal deformity on right side in area 3, left side in area 1 and 2. Hypertrophyof the right inferior turbinate. No polyps or drainage noted. Oral cavity is normal. Oropharynx is normal. Indirect nasopharyngoscopy reveals a small amount of mucoid drainage on the left. Nasopharynx otherwise clear. Indirect laryngoscopy reveals normal larynx and hypopharynx. NECK: Palpation of the neck is muscular and normal without palpable adenopathy or masses. There was a prominent jugular digastric cervical node, mobile, nontender on the right side. A smaller one on the left side. Right side is approximately 1 to 1.5 cm in size. IMPRESSION/REPORT/PLAN Chronic sinusitis, chronic rhinitis, septal deformity, turbinate hypertrophy, sinus headache, postnasal drainage and enlarged cervical node. PLAN: Discussed findings with patient. Discussed diagnosis. Will evaluate cervical nodes with ultrasound. Will evaluate sinuses further with coronal CT scan of the nose and sinuses to rule out underlying sinus disease. Will obtain eye exam scheduled for tomorrow with Ophthalmology. Will see again in followup with the ultrasound and CT sinus for review. His questions were answered to his satisfaction.His father's questions were answered to his satisfaction. Travis Craig M.D./dale Electronically Signed By: TRAVIS CRAIG MD On: 04/07/2016 03:24 PM Source: [facility] [email or web address] Document Id: [id number] D FIBER PASTER OPERATOR documented in this encounter Miscellaneous Notes Miscellaneous - Lance Arevalo L.PGermanN. - 03/29/2016 2:35 PM CST Radiology Scheduling Questionnaire Radiology Scheduling Questionnaire Entered On: 03/29/2016 14:35 SOLID FIBER PASTER OPERATOR Performed On: 03/29/2016 14:35 SOLID FIBER PASTER OPERATOR by LANCE AREVALO LPN Radiology Scheduling Questionnaire Rad/Relevan Medications Grid Amiodarone : No Avandamet : No Glucophage : No Glucovance : No [place] : No Metformin : No Coumadin (warfarin) : No Plavix (clopidogrel) : No LANCE AREVALO LPN - 03/29/2016 14:35 SOLID FIBER PASTER OPERATOR Rad/Iodinated Contrast Risk Grid Asthma : No CHF : No Chronic Renal Failure : No Diabetes : No Dialysis : No Dyspnea : No Emphysema/COPD : No Gout : No Hay Fever : No Iodine Allergy : No Multiple Myeloma : No One Kidney : No : No Previous LA : No Other (document in Comments) : No LANCE AREVALO LPN - 03/29/2016 14:35 SOLID FIBER PASTER OPERATOR Previous Films : Yes LANCE AREVALO LPN - 03/29/2016 14:35 SOLID FIBER PASTER OPERATOR Source: [facility] POWERCHART Document Id: [id number] SOLID FIBER PASTER OPERATOR!28 D FIBER PASTER OPERATOR Miscellaneous - Travis Craig M.D. - 03/29/2016 2:32 PM CST Ambulatory Patient Summary [facility] [address] [place] [id number] Visit Information Name: LYLEALEJANDRA [facility] Number: [id number] Current Date: 03/29/2016 14:32:50 Physicians Attending Provider: TRAVIS CRAIG MD Primary Care Provider: PCP, ELSEWHERE LYLEALEJANDRA has been given the following list of [...] times a day as needed for Anxiety buprenorphine-naloxone (Suboxone 8 mg-2 mg sublingual film) [...] nasal (Flonase 50 mcg/inh nasal spray) 2 [place](s), Nostrils(Both), once a day *mometasone nasal (Nasonex 50 mcg/inh nasal spray) 2 [place](s), Nostrils(Both), once a day * You have let us know that you are not taking this medication as listed. Please talk with your primary care provider or the health care provider who prescribed the medication as soon as possible. Stop Taking the Following Medications: Medication list as of 03-29-16 14:32 Attention: If you have any medications at [...] Electronically Signed By: TRAVIS CRAIG MD Signed On:29-MAR-2016 14:32:46 Your Allergies & Intolerances Substance Reaction Symptoms [...] if you dont have one. Go to [email or web address] and click on Create Your Account. Then, follow the directions to complete the online form. Youll be asked for your [facility] number which you can find at the top of this document. Your Goals/Additional instructions: Source: [facility] POWERCHART Document Id: [id number] D FIBER PASTER OPERATOR Miscellaneous - Travis Craig M.D. - 03/29/2016 2:32 PM CST Ambulatory Discharge Medication List [facility] [address] [place] [id number] Visit Information Name: ALEJANDRA ADHIKARI [facility] Number: [id number] Current Date: 03/29/2016 14:32:49 Attending Provider: TRAVIS CRAIG MD Primary Care Provider: PCP, ELÍAS ALEJANDRA ADHIKARI has been given the following [...] times a day as needed for Anxiety buprenorphine-naloxone (Suboxone 8 mg-2 mg sublingual film) [...] nasal (Flonase 50 mcg/inh nasal spray) 2 [place](s), Nostrils(Both), once a day *mometasone nasal (Nasonex 50 mcg/inh nasal spray) 2 [place](s), Nostrils(Both), once a day * You have let us know that you are not taking this medication as listed. Please talk with your primary care provider or the health care provider who prescribed the medication as soon as possible. Stop Taking the Following Medications: Medication list as of 03-29-16 14:32 Attention: If you have any medications at [...] Electronically Signed By: TRAVIS CRAIG MD Signed On:29-MAR-2016 14:32:46 Additional Information: Source: [facility] [employer]CHART Document Id: [id number] D FIBER PASTER OPERATOR Miscellaneous - Lance Arevalo L.P.N. - 03/29/2016 2:14 PM CST Ambulatory Vitals Height Weight Ambulatory Vitals Height Weight Entered On: 03/29/2016 14:15 SOLID FIBER PASTER OPERATOR Performed On: 03/29/2016 14:14 SOLID FIBER PASTER OPERATOR by LANCE AREVALO LPN Vitals/Ht/Wt Systolic Blood Pressure : 124 mmHg Diastolic Blood Pressure : 64 mmHg NIBP Mean : 84 mmHg BP Location : Right upper extremity Blood Pressure Cuff Size : Regular Height : 166 cm(Converted to: 5 ft 5 inch(es), 65 inch(es)) LANCE AREVALO LPN - 03/29/2016 14:14 SOLID FIBER PASTER OPERATOR [facility] Document Id: [id number] SOLID FIBER PASTER OPERATOR!8 D FIBER PASTER OPERATOR Miscellaneous - Lance Arevalo L.P.N. - 03/29/2016 2:03 PM CST Adult Pharmacy Laboratory Technician Intake/History Adult Pharmacy Laboratory Technician Intake/History Entered On: 03/29/2016 14:12 SOLID FIBER PASTER OPERATOR Performed On: 03/29/2016 14:03 SOLID FIBER PASTER OPERATOR by LANCE AREVALO LPN Intake Temperature Core : 36.6 DegC(Converted to: 97.9 DegF) Peripheral Pulse Rate : 73 /min Systolic Blood Pressure : 130 mmHg Diastolic Blood Pressure : 52 mmHg NIBP Mean : 78 mmHg LANCE AREVALO LPN - 03/29/2016 14:12 SOLID FIBER PASTER OPERATOR Chief Complaint : Sinus swelling, blurred vision, pain behind and under eyes, inflammation in nose, pressure behind eyes, headaches, sensitivity to light Hx sinus surgery - deviated septum Onset of Symptoms : 2 weeks BP Location : Left upper extremity Blood Pressure Cuff Size : Regular Height : 166 cm(Converted to: 5 ft 5 inch(es), 65 inch(es)) LANCE AREVALO LPN - 03/29/2016 14:03 SOLID FIBER PASTER OPERATOR General Info Information Given By : Patient Preferred Communication Mode : Verbal Languages : Senegalese Is Patient Female and 14-50 no hysterectomy : No LANCE AREVALO LPN - 03/29/2016 14:03 SOLID FIBER PASTER OPERATOR Subjective Pain Symptoms : Yes LANCE AREVALO LPN - 03/29/2016 14:03 SOLID FIBER PASTER OPERATOR Dependent Habits Exposure to Tobacco Smoke : Other: haven't been smoking for awhile Smoking Status : Former smoker Tobacco 2A : Yes Tobacco Use/Currently Using : No Tobacco Use/Last 30 Days : No Tobacco Use/Last 12 months : No LANCE AREVALO LPN - 03/29/2016 14:03 SOLID FIBER PASTER OPERATOR Caffeine Use Grid Caffeine Use : None LANCE AREVALO LPN - 03/29/2016 14:03 SOLID FIBER PASTER OPERATOR Recreational Drug Use Grid Drug Use : None LANCE AREVALO LPN - 03/29/2016 14:03 SOLID FIBER PASTER OPERATOR Source: [facility] [employer] Document Id: [id number] SOLID FIBER PASTER OPERATOR!32 D FIBER PASTER OPERATOR documented in this encounter Plan of Treatment Not on filedocumented as of this encounter Visit Diagnoses Not on filedocumented in this encounter Additional Health Concerns Assessment Noted Time PHQ-9 Depression Total Score: 6 03/20/2014 10:55 AM CS T documented as of this encounter
--- OUTSIDE RECORDS SUMMARY | 2022-02-10 14:42 | XMS_ITS | Encounter Summary ---
:1985 Author Organization [facility] Address [address] [place] [address] Care Team Providers Name Role Phone Unavailable Primary Care Provider Unavailable Encounter Details Date Type Department Care Team Description 03/20/2014 Hospital Encounter HX [facility] Tania Franklin M.D. Social History Tobacco Use Types Packs/Day Years Used Date Smoking Tobacco: Never Assessed Sex Assigned at Date Recorded Male 10/17/2017 10:58 AM CDT documented as of this encounter Last Filed Vital Signs Vital Sign Reading Time Taken Comments Blood Pressure 106/60 03/20/2014 9:16 AM MARKETING BUDGET ANALYST Pulse 74 03/20/2014 9:16 AM MARKETING BUDGET ANALYST Temperature - - Respiratory Rate 19 03/20/2014 9:16 AM MARKETING BUDGET ANALYST Oxygen Saturation - - Inhaled Oxygen Concentration - - Weight 66 kg (145 lb 8.1 oz) 03/20/2014 9:16 AM MARKETING BUDGET ANALYST Height 166 cm (5' 5.35) 03/20/2014 9:16 AM MARKETING BUDGET ANALYST Body Mass Index 23.95 03/20/2014 9:16 AM MARKETING BUDGET ANALYST documented in this encounter Medications at Time [...] encounter Progress Notes Federico Andino M.D. - 03/20/2014 9:10 AM CST [id number] CHIEF COMPLAINT/REASON FOR VISIT Followup on: 1. ADHD. 2. Generalized anxiety disorder. HISTORY OF PRESENT ILLNESS This 28-year-old white male has generally been getting along really quite well on his current medication regime. When I saw him last back in November we did slightly decrease his Xanax and he has beenmanaging at that dose, but does not feel he is capable of decreasing it further at this point. He continues really to be troubled with the generalized anxiety and has not felt that the Zoloft has done anything to improve his function or overall anxiety level. He admits he has just really not been taking it without any change in how he has felt. He has been having kind of episodes where he feels that his head almost feels numb which he has had previously but they have been more troublesome recently. When he does take his Xanax it has helped. He does not feel that these episodes have really been significantly worse since he stopped taking his Zoloft completely. He has the chronic nasal congestion issues but has been unable to get over to [place] which is what has been recommended since he has hadthe previous surgeries and some scar tissue. He does tell me in the last 2 months he has completely quit smoking and strongly encouraged him to continue with that. He does admit that he has been under continued stress in that he is no longer really talking to his father or his mother and that is most concerning to him because he does not have then contact to his younger sister, and he just remains somewhat undecided as to what to do in terms of trying to pursue a career. He does admit since being onthe Adderall he is now able to read and focus better and is motivated to try and get some type of skill to allow him employment. 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 He is extremely anxious about changing physicians in fear that someone will try and stop what he hascurrently been on. He would now like to establish with a physician in [place] since that is where he is living. We both agree that he has made substantial strides in the last couple of years in that he has not had an emergency room visit in quite a bit of time, he continues to remain drug free on his Suboxone and he is off probation and really trying to get himself re- established. He understands the concerns about being on 2 antianxiety medications, but at this point, really feels they serve an important function in keeping him more functional. MEDICATIONS Adderall XR 25 mg by mouth daily. Xanax 0.5 mg up to 3 times a day as needed anxiety. Clonazepam 2 mg 1 by mouth 2 times a day for anxiety. Suboxone 8 mg/2 mg sublingual film 2 times a day for addiction. VITAL SIGNS Weight 66 kg, blood pressure 106/60, respirations 19, heart rate 74. PHYSICAL EXAMINATION GENERAL: Well-developed male, in no acute distress. HEENT: Eyes pupils equal, round, react to light. Extraocular movements are full. Both TMs look clear. He did have some cerumen present and that was flushed. Throat was clear. No specific tenderness to palpation over the sinuses. No real TMJ tenderness. NECK: He had no adenopathy. HEART: Regular rate and rhythm with no murmur. LUNGS: Clear. SPINE: He has fairly significant spasm in the upper trapezius muscles. He does have good range of motion of his neck. MENTAL STATUS: He is alert, oriented, and appropriate. His PHQ-9 is coming in with a score of 6 stating things are somewhat difficult. IMPRESSION/REPORT/PLAN 1. Attention deficit hyperactivity disorder. PLAN: Continue with the Adderall XR 25 mg by mouth daily with a 3 month supply and he will need to establish with a new caregiver for reassessment in 3 months. Of note, I really do feel that the Adderall has made a big difference in his ability to concentrate and function more effectively. 2. Anxiety disorder. PLAN: Again reviewed all of the issues with him. I elected to try him on some Cymbalta 30 mg 1 by mouth daily for his anxiety and depression to see if that is any more effective for him than the SSRIs have been. He is in agreement to try and I did go ahead and give him a 3 month supply with a followupwith his new physician to reassess in 3 months. Recommended continuing with the clonazepam 2 mg 2 times a day and I feel he will most likely need that on a long-term basis. Agreed to continue with the Ativan 0.5 mg up to 3 times a day with a continued effort to actually try and get him off of that, orat best on a really rare as needed basis. Encouraged him to continue to work with his attempts at exercise, relaxation and other ways of dealing with his anxiety non medically and he does seem motivated to do that. 3. Head numbness complaints. PLAN: Discussed that I do think his nasal congestion issues and probably to some degree his neck issues may be contributing to his head discomfort and then neck is worse with any increased anxiety issue. I recommended he continue with the regular exercise and we can consider some therapy to his neck if needed. Also encouraged him to pursue ENT to [place] to see if we cannot improve his chronic nasal congestion issues. As noted really strongly congratulated him on quitting smoking. 4. Impacted cerumen removed. Thirty minutes was spent with the patient. Federico Franklin M.D./dale Electronically Signed By: FEDERICO FRANKLIN MD On: 03/22/2014 12:31 PM Source: [facility] [id number] Document Id: [id number] ETING BUDGET ANALYST documented in this encounter Miscellaneous Notes Miscellaneous - Jcarlos Horta, L.P.N. - 03/20/2014 10:55 AM CST PHQ-9 PHQ-9 Entered On: 03/26/2014 10:56 MARKETING BUDGET ANALYST Performed On: 03/20/2014 10:55 MARKETING BUDGET ANALYST by JCARLOS HORTA PHQ-9 Little interest or pleasure in doing things : Several days Feeling down, depressed, or hopeless : Several days Trouble falling or staying asleep, or sleeping too much : Several days Feeling tired or having little energy : Several days Poor appetite or overeating : Not at all Feeling bad about yourself or that you are a failure : Several days Trouble concentrating on things : Several days Moving or speaking slowly; restless or fidgety : Not at all Thoughts that you would be better off /hurting self : Not at all PHQ-9 Calculated Score : 6 JCARLOS HORTA - 03/26/2014 10:55 MARKETING BUDGET ANALYST Source: [facility] Classiqs Document Id: [id number] MARKETING BUDGET ANALYST!12 ETING BUDGET ANALYST Miscellaneous - Federico Andino M.D. - 03/20/2014 9:52 AM MARKETING BUDGET ANALYST Ambulatory Patient Summary [address] [id number] Visit Information Name: ALEJANDRA ADHIKARI JUAN MANUEL [facility] Number: [id number] Current Date: 03/20/2014 09:52:19 Physicians Attending Provider: FEDERICO FRANKLIN MD Primary Care Provider: FEDERICO FRANKLIN MD LYLE ALEJANDRA ZAMBRANO has been given the following list of [...] times a day as needed for Anxiety Routed to [facility] buprenorphine-naloxone (Suboxone 8 mg-2 mg sublingual film) 1 Each, Sublingual, two times a day For addiction (dissolve under the tongue) clonazePAM (Klonopin 2 mg oral tablet) 1 Tablet(s), Oral, two times a day Anxiety Routed to [facility] dextroamphetamine-amphetamine (Adderall XR 25 mg oral capsule, extended release) 1 cap, Oral, once aday (in the morning) ADHD Routed to [facility] DULoxetine (Cymbalta 30 mg oral delayed release capsule) 1 cap, Oral, once a day anxiety, depressionNew Routed to [address] [address] *fluticasone nasal (Flonase 50 mcg/inh nasal spray) 2 [place](s), Nostrils(Both), once a day mometasone nasal (Nasonex 50 mcg/inh nasal spray) 2 [place](s), Nostrils(Both), once a day * You have let us know that you are not taking this medication as listed. Please talk with your primary care provider or the health care provider who prescribed the medication as soon as possible. Stop Taking the Following Medications: sertraline (Zoloft 100 mg oral tablet) Medication list as of 03-20-14 09:52 Attention: If you have any medications at home that are not on this list, DO NOT take them until youcontact your provider for clarification. Give a copy of your medication list to your primary care provider. Update your medication list any time medications or doses are changed and carry your medication list at all times in case of emergency. Electronically Signed By: FEDERICO FRANKLIN MD Signed On:20-MAR-2014 09:52:09 Your Allergies & Intolerances Substance Reaction Symptoms [...] appointment detail needed. Your Goals/Additional instructions: Source: [facility] POWERCHART Document Id: [id number] ETING BUDGET ANALYST Miscellaneous - Federico Andino M.D. - 03/20/2014 9:52 AM MARKETING BUDGET ANALYST Ambulatory Discharge Medication List [facility] [address] [place] [id number] Visit Information Name: ALEJANDRA ADHIKARI [facility] Number: [id number] Visit Date: 03/20/2014 09:52:17 Attending Provider: FEDERICO FRANKLIN MD Primary Care [...] times a day as needed for Anxiety Routed to [facility] buprenorphine-naloxone (Suboxone 8 mg-2 mg sublingual film) 1 Each, Sublingual, two times a day For addiction (dissolve under the tongue) clonazePAM (Klonopin 2 mg oral tablet) 1 Tablet(s), Oral, two times a day Anxiety Routed to [facility] dextroamphetamine-amphetamine (Adderall XR 25 mg oral capsule, extended release) 1 cap, Oral, once aday (in the morning) ADHD Routed to [facility] DULoxetine (Cymbalta 30 mg oral delayed release capsule) 1 cap, Oral, once a day anxiety, depressionNew [facility] [address] *fluticasone nasal (Flonase 50 mcg/inh nasal spray) 2 [place](s), Nostrils(Both), once a day mometasone nasal (Nasonex 50 mcg/inh nasal spray) 2 [place](s), Nostrils(Both), once a day * You have let us know that you are not taking this medication as listed. Please talk with your primary care provider or the health care provider who prescribed the medication as soon as possible. Stop Taking the Following Medications: sertraline (Zoloft 100 mg oral tablet) Medication list as of 03-20-14 09:52 Attention: If you have any medications at home that are not on this list, DO NOT take them until youcontact your provider for clarification. Give a copy of your medication list to your primary care provider. Update your medication list any time medications or doses are changed and carry your medication list at all times in case of emergency. Electronically Signed By: FEDERICO FRANKLIN MD Signed On:20-MAR-2014 09:52:09 Additional Information: Source: [facility] Classiqs Document Id: [id number] ETING BUDGET ANALYST Miscellaneous - Lesia Brunson, L.P.N. - 03/20/2014 9:16 AM CST Meaningful Use Influenza Exclusion Meaningful Use Influenza Exclusion Entered On: 03/20/2014 9:16 MARKETING BUDGET ANALYST Performed On: 03/20/2014 9:16 MARKETING BUDGET ANALYST by LESIA CRANDALL LPN Influenza Vaccine Exclusion Influenza Vaccine Exclusion : Patient declined LESIA CRANDALL LPN - 03/20/2014 9:16 MARKETING BUDGET ANALYST Source: [facility] Classiqs Document Id: [id number] MARKETING BUDGET ANALYST!3 ETING BUDGET ANALYST Miscellaneous - Lesia Brunson, L.P.N. - 03/20/2014 9:16 AM CST Adult [employer] Intake/History Adult [employer] Intake/History Entered On: 03/20/2014 9:20 MARKETING BUDGET ANALYST Performed On: 03/20/2014 9:16 MARKETING BUDGET ANALYST by LESIA CRANDALL LPN Intake Chief Complaint : Med refills; numbness on sides of head (headache); bilateral ear pain Temperature Oral : 36.4 DegC(Converted to: 97.5 DegF) Peripheral Pulse Rate : 74 /min Respiratory Rate : 19 /min Systolic Blood Pressure : 106 mmHg Diastolic Blood Pressure : 60 mmHg NIBP Mean : 75 mmHg BP Location : Right upper extremity Blood Pressure Cuff Size : Regular Height : 166 cm(Converted to: 5 ft 5 inch(es), 65 inch(es)) Actual Weight : 66 kg(Converted to: 145 lb 8 oz) Weight Source : Standing scale Dosing Weight Clinic : 66 kg Clinic BSA : 1.74 Body Mass Index : 23.95 kg/m2 LESIA CRANDALL [facility] 03/20/2014 9:16 MARKETING BUDGET ANALYST General Info Information Given By : Patient Preferred Communication Mode : Verbal Languages : Armenian Is Patient Female and 13-50 no hysterectomy : No LESIA CRANDALL [facility] 03/20/2014 9:16 MARKETING BUDGET ANALYST Subjective Pain Symptoms : Yes LESIA CRANDALL [facility] 03/20/2014 9:16 MARKETING BUDGET ANALYST Pain Scale Pain Scale Verbal 0-10 : Open LESIA CRANDALL [facility] 03/20/2014 9:16 MARKETING BUDGET ANALYST Pain Pain Assessment Grid Pain 1 Location : Head (Comment: numbness [LESIA CRANDALL [facility] 03/20/2014 9:16 MARKETING BUDGET ANALYST] ) Laterality : Bilateral Intensity : 3 LESIA CRANDALL [facility] 03/20/2014 9:16 MARKETING BUDGET ANALYST Dependent Habits Tobacco Use/Currently Using : No Exposure to Tobacco Smoke : Other: haven't been smoking for awhile Smoking Status : Former smoker LESIA CRANDALL [facility] 03/20/2014 9:16 MARKETING BUDGET ANALYST Tobacco Use Grid Type : Cigarettes Cigarette Use Packs/Day : 0.5 LESIA CRANDALL [facility] 03/20/2014 9:16 MARKETING BUDGET ANALYST Caffeine Use Grid Caffeine Use : None LESIA CRANDALL [facility] 03/20/2014 9:16 MARKETING BUDGET ANALYST Recreational Drug Use Grid Drug Use : None LESIA CRANDALL [facility] 03/20/2014 9:16 MARKETING BUDGET ANALYST ID Screen Travel Within Last 21 Days : No LESIA CRANDALL [facility] 03/20/2014 9:16 MARKETING BUDGET ANALYST Source: [facility] POWERCHART Document Id: [id number] MARKETING BUDGET ANALYST!48 ETING BUDGET ANALYST documented in this encounter Plan of Treatment Not on filedocumented as of this encounter Visit Diagnoses Not on filedocumented in this encounter Additional Health Concerns Assessment Noted Time PHQ-9 Depression Total Score: 6 03/20/2014 10:55 AM CS T documented as of this encounter
--- OUTSIDE RECORDS SUMMARY | 2022-02-10 14:42 | XMS_ITS | Encounter Summary ---
:1985 Author Organization [facility] Address [address] [place] [id number] Care Team Providers Name Role Phone Unavailable Primary Care Provider Unavailable Encounter Details Date Type Department Care Team Description 06/28/2013 Hospital Encounter HX [facility] Tania Franklin M.D. 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 documented as of this encounter Progress Notes Riri Andino M.D. - 06/28/2013 3:19 PM CDT [id number] CHIEF COMPLAINT/REASON FOR VISIT 1. Sunburn 2. Gastritis HISTORY OF PRESENT ILLNESS Alejandra is a 27-year-old male presenting today because he was out in the sun on Monday and suffered a significant sunburn to his head, face, ears, and neck. He has been having severe pain and throbbing. He was seen in the [facility] and given Vicodin. He has stopped his Suboxone and has used the Vicodin but it has not given much relief. He has been taking ibuprofen but that has been causing him GI distress and he does have a history of peptic ulcer disease. He has not had any black or tarry stools. He is quite concerned because of the continued feeling of swelling and pressure in his head and decreased sensation of left side of face. MEDICATIONS Reviewed and updated in the EMR dated 06/28/13 ALLERGIES Reviewed and updated in the EMR dated 06/28/13 VITAL SIGNS WEIGHT: 62.6 kg TEMP: 36.7 DegC PULSE: 74 /min RESP RATE: 18 /min SYSTOLIC: 113 mmHg DIASTOLIC: 67 mmHg PHYSICAL EXAMINATION GENERAL: Well-developed male in no acute distress. SKIN: Dark erythema of the top of his head where he is bald. It extends onto the left side of his face, his ear and neck. His right side is much less involved. Does not have any blistering and overall just looks mildly swollen at this time. ABDOMEN: Soft and nontender. No organomegaly or masses. NEUROLOGIC: Cranial nerves 2-12 intact. IMPRESSION/REPORT/PLAN 1. Sunburn Plan: Discussed I have little else to offer. Discussed cold packs. Recommended he go back on his Suboxone for better pain relief. Discussed the importance of avoiding further damage to the sunburned area. 2. Gastritis Plan: Prilosec 20mg daily for next 4-6 weeks. Urged him to stop the ibuprofen. This document serves as a record of services personally performed by Dr. Riri Franklin. It was created on their behalf by Stephanie Solomon, a trained emergency medical dispatcher. The creation of this record is based on the scribe's personal observations and the provider's statements to them. This document has been checked and approved by the attending provider. Riri Franklin M.D./rakesh Electronically Signed By: RIRI FRANKLIN MD On: 07/03/2013 06:54 PM Source: [facility] MHSDOLBEYNONRADSYS Document Id: [id number] documented in this encounter Miscellaneous Notes Telephone Encounter - Jocelyn Rodriguez, RGermanN. - 12/13/2013 10:18 AM CDT [facility]ong calling on P.A for Adderall Document Contains Addenda Addendum by IVELISSE CABRAL on 13 December 2013 12:00:14 CDT Spoke with tiffany and was given info to call insurance company. PA approved From: JOCELYN RODRIGUEZ [facility] To: ANISHA Saini Nurse; Sent: 12/13/2013 10:18:07 CDT Subject: Chong calling on P.A for Adderall Caller is: ( ) Patient ( ) Mother ( ) Father ( ) Spouse ( ) Daughter ( ) Son ( Aquilino Schwarz/Gigi [phone] ) Pharmacy ( ) Other: Physician: Paulina Franklin Patient MRN #: Reason for Call: Message: S. Checking on P.A information. Elva Haved tried geting Adderall approved x 10 days. The insurance company told pharmacy they have notreceived any paperwork from Dr. Menezes's office. The pharamcy was told it was faxed to the insurance company. The patient changed insurance companies recently. A. Pharmacy is wondering if the P.A was faxed to the correct insurance company. As of 11-04-13, he is currently through [facility]. Was the P.A sent to the correct insurance company? R. Please give pharmacy a call back to update them. Advice/Action: Source used: ( ) Verbalizes understanding of instructions ( ) Instructed to call back if symptoms worsen or do not resolve ( ) Refused to see provider ( ) Appointment Scheduled ( ) OK to leave message on voice mail ( ) Patient told to expect return call: ( ) today ( ) tomorrow ( ) next work day ( ) Patient's email ( ) Patient told physician out of office, will call upon return call on ( ) ( ) Patient told physician out of office, routed to other physician ( ) Other ( ) Call back telephone number ( ) Call back cell phone number ( ) Source: [facility] POWERCHART Document Id: [id number] Miscellaneous - Riri Andino M.D. - 06/28/2013 3:57 PM CDT Ambulatory Patient Summary [address] [id number] Visit Information Name: LYLEALEJANDRA [facility] Number: [id number] Current Date: 06/28/2013 15:57:41 Physicians Attending Provider: RIRI FRANKLIN MD Primary Care Provider: RIRI RFANKLIN MD ALEJANDRA ADHIKARICHINO has been given the following list of [...] Tablet(s), Oral, two times a day anxiety *buprenorphine-naloxone (Suboxone 8 mg-2 mg sublingual film) 1 Each, Sublingual, two times a day Foraddiction (dissolve under the tongue) clonazePAM (Klonopin 2 mg oral tablet) 1 Tablet(s), Oral, two times a day Anxiety dextroamphetamine-amphetamine (Adderall XR 25 mg oral capsule, extended release) 1 cap, Oral, once aday (in the morning) ADHD *escitalopram (Lexapro 10 mg oral tablet) 1 Tablet(s), Oral, once a day anxiety, depression HYDROcodone-acetaminophen ([place] 5 mg-325 mg oral tablet) 1 Tablet(s), Oral, every 6 hours as neededfor Pain No more than 4,000mg acetaminophen/24hrs omeprazole (PriLOSEC 20 mg oral delayed release capsule) 1 cap, Oral, once a day [facility]omach [facility] [address] [place] [address] sertraline (Zoloft 100 mg oral tablet) 1 Tablet(s), Oral, once a day * You have let us know that you are not taking this medication as listed. Please talk with your primary care provider or the health care provider who prescribed the medication as soon as possible. Stop Taking the Following Medications: Medication list as of 06-28-13 15:57 Attention: If you have any medications at home that are not on this list, DO NOT take them until youcontact your provider for clarification. Give a copy of your medication list to your primary care provider. Update your medication list any time medications or doses are changed and carry your medication list at all times in case of emergency. Electronically Signed By: RIRI FRANKLIN MD Signed On:28-JUN-2013 15:57:32 Your Allergies & Intolerances Substance Reaction Symptoms [...] Upcoming Appointments Date Time Location Reason Provider No Appointments found Attention: Contact your local Clinic if further appointment detail needed. Your Goals/Additional instructions: Source: [facility] POWERCHART Document Id: [id number] Miscellaneous - Riri Andino M.D. - 06/28/2013 3:57 PM CDT Ambulatory Discharge Medication List [facility] [address] [place] [id number] Visit Information Name: ALEJANDRA ADHIKARI [facility] Number: [id number] Visit Date: 06/28/2013 15:57:39 Attending Provider: RIRI FRANKLIN MD Primary Care Provider: RIRI FRANKLIN MD LYLE ALEJANDRA ZAMBRANO has been [...] Tablet(s), Oral, two times a day anxiety *buprenorphine-naloxone (Suboxone 8 mg-2 mg sublingual film) 1 Each, Sublingual, two times a day Foraddiction (dissolve under the tongue) clonazePAM (Klonopin 2 mg oral tablet) 1 Tablet(s), Oral, two times a day Anxiety dextroamphetamine-amphetamine (Adderall XR 25 mg oral capsule, extended release) 1 cap, Oral, once aday (in the morning) ADHD *escitalopram (Lexapro 10 mg oral tablet) 1 Tablet(s), Oral, once a day anxiety, depression HYDROcodone-acetaminophen ([place] 5 mg-325 mg oral tablet) 1 Tablet(s), Oral, every 6 hours as neededfor Pain No more than 4,000mg acetaminophen/24hrs omeprazole (PriLOSEC 20 mg oral delayed release capsule) 1 cap, Oral, once a day Stomach protection New Routed to [address] [address] sertraline (Zoloft 100 mg oral tablet) 1 Tablet(s), Oral, once a day * You have let us know that you are not taking this medication as listed. Please talk with your primary care provider or the health care provider who prescribed the medication as soon as possible. Stop Taking the Following Medications: Medication list as of 06-28-13 15:57 Attention: If you have any medications at home that are not on this list, DO NOT take them until youcontact your provider for clarification. Give a copy of your medication list to your primary care provider. Update your medication list any time medications or doses are changed and carry your medication list at all times in case of emergency. 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 Entered On: 06/28/2013 15:33 CDT Performed On: 06/28/2013 15:31 CDT by IVELISSE CABRAL Intake Chief Complaint : sunburn on head,neck - swelled up and having pain Temperature Oral : 36.7 DegC(Converted to: 98.1 DegF) Peripheral Pulse Rate : 74 /min Respiratory Rate : 18 /min Heart Rhythm : Regular Systolic Blood Pressure : 113 mmHg Diastolic Blood Pressure : 67 mmHg NIBP Mean : 82 mmHg BP Location : Right upper extremity Blood Pressure Cuff Size : Large Actual Weight : 62.6 kg(Converted to: 138 lb 0 oz) Weight Source : Standing scale Dosing Weight Clinic : 62.6 kg IVELISSE CABRAL 06/28/2013 15:31 CDT General Info Information Given By : Patient Languages : Japanese IVELISSE CABRAL 06/28/2013 15:31 CDT Subjective Pain Symptoms : Yes IVELISSE CABRAL 06/28/2013 15:31 CDT Pain Pain Assessment Grid Pain 1 Location : Head IVELISSE CABRAL 06/28/2013 15:31 CDT Dependent Habits Tobacco Use/Currently Using : Yes Exposure to Tobacco Smoke : Patient smokes Smoking Status : Current every day smoker IVELISSE CABRAL 06/28/2013 15:31 CDT Tobacco Use Grid Type : Cigarettes Cigarette Use Packs/Day : 0.5 IVELISSE CABRAL 06/28/2013 15:31 CDT Caffeine Use Grid Caffeine Use : None IVELISSE CABRAL 06/28/2013 15:31 CDT Recreational Drug Use Grid Drug Use : None IVELISSE CABRAL 06/28/2013 15:31 CDT [facility] Document Id: [id number] CDT!38 documented in this encounter Plan of Treatment Not on filedocumented as of this encounter Visit Diagnoses Not on filedocumented in this encounter Additional Health Concerns Assessment Noted Time PHQ-9 Depression Total Score: 4 06/06/2013 6:12 PM CDT documented as of this encounter
--- OUTSIDE RECORDS SUMMARY | 2022-02-10 14:42 | XMS_ITS | Encounter Summary ---
:1985 Author Organization [facility] Address [address] [place] [address] Care Team Providers Name Role Phone Unavailable Primary Care Provider Unavailable Encounter Details Date Type Department Care Team Description 04/24/2013 Hospital Encounter HX NO MAPPING Alaina Wood M.D. [address], [place] [phone] (Wo rk) Social History [...] a day. 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
--- OUTSIDE RECORDS SUMMARY | 2022-02-10 14:42 | XMS_ITS | Encounter Summary ---
:1985 Author Organization [facility] Address [address] [place] [address] Care Team Providers Name Role Phone Unavailable Primary Care Provider Unavailable Encounter Details Date Type Department Care Team Description 03/30/2016 Hospital Encounter HX [facility] Edd Carrizales M.D. 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 - 03/30/2016 10:36 AM CST [id number] The documentation for this visit is available in [employer] IMPRESSION/REPORT/PLAN #1 Eye pain left eye. Undetermined etiology. Unexplained based upon clinical exam. Reported pain appears to be out of proportion to unremarkable exam but patient awaiting CT scan evaluation. Plan: Observation. Consider MR. GAR Konrad Jeff. 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 - 03/30/2016 11:12 AM CST Ambulatory Patient Summary [address] [id number] Visit Information Name: ALEJANDRA ADHIKARI [facility] Number: [id number] Current Date: 03/30/2016 11:12:28 Physicians Attending Provider: KONRAD JUAREZ MD Primary Care Provider: PCP, ELSEWHERE ALEJANDRA [...] Oral, once aday (in the morning) ADHD DULoxetine (Cymbalta 30 mg oral delayed release capsule) 1 cap, Oral, once a day anxiety, depression fluticasone nasal (Flonase 50 mcg/inh nasal spray) 2 [place](s), Nostrils(Both), once a day mometasone nasal (Nasonex 50 mcg/inh nasal spray) 2 [place](s), Nostrils(Both), once a day Stop Taking the Following Medications: Medication list as of 03-30-16 11:12 Attention: If you have any medications at home that are not on this list, DO NOT take them until youcontact your provider for clarification. Give a copy of your medication list to your primary care provider. Update your medication list any time medications or doses are changed and carry your medication list at all times in case of emergency. Electronically Signed By: KONRAD JUAREZ MD Signed On:30-MAR-2016 11:12:25 Your Allergies & Intolerances Substance Reaction Symptoms [...] if you dont have one. Go to [email or web address] and click on Create Your Account. Then, follow the directions to complete the online form. Youll be asked for your [facility] number which you can find at the top of this document. Your Goals/Additional instructions: Source: [facility] POWERCHART Document Id: [id number] DENTIAL DESIGNER Miscellaneous - Konrad Juarez M.D. - 03/30/2016 11:12 AM CST Ambulatory Discharge Medication List [facility] [address] [place] [id number] Visit Information Name: LYLE ALEJANDRA PRIETOCHINO [facility] Number: [id number] Current Date: 03/30/2016 11:12:27 Attending Provider: KONRAD JUAREZ MD Primary Care Provider: PCP, ELSEWHERE ALEJANDRA [...] Oral, once aday (in the morning) ADHD DULoxetine (Cymbalta 30 mg oral delayed release capsule) 1 cap, Oral, once a day anxiety, depression fluticasone nasal (Flonase 50 mcg/inh nasal spray) 2 [place](s), Nostrils(Both), once a day mometasone nasal (Nasonex 50 mcg/inh nasal spray) 2 [place](s), Nostrils(Both), once a day Stop Taking the Following Medications: Medication list as of 03-30-16 11:12 Attention: If you have any medications at home that are not on this list, DO NOT take them until youcontact your provider for clarification. Give a copy of your medication list to your primary care provider. Update your medication list any time medications or doses are changed and carry your medication list at all times in case of emergency. Electronically Signed By: KONRAD JUAREZ MD Signed On:30-MAR-2016 11:12:25 Additional Information: Source: [facility] POWERCHART Document Id: [id number] DENTIAL DESIGNER documented in this encounter Plan of Treatment Not on filedocumented as of this encounter Visit Diagnoses Not on filedocumented in this encounter Additional Health Concerns Assessment Noted Time PHQ-9 Depression Total Score: 6 03/20/2014 10:55 AM DANUTA T documented as of this encounter
--- OUTSIDE RECORDS SUMMARY | 2022-02-10 14:42 | XMS_ITS | Encounter Summary ---
:1985 Author Organization [facility] Address [address] [place] [address] Care Team Providers Name Role Phone Unavailable Primary Care Provider Unavailable Encounter Details Date Type Department Care Team Description 11/14/2012 Hospital Encounter [facility] Agueda Velasquez M.D. [address] [place] [address] (Wo rk) Social History Tobacco Use Types Packs/Day Years Used Date Smoking Tobacco: Never Assessed Sex Assigned at Date Recorded Male 10/17/2017 10:58 AM CDT documented as of this encounter Last Filed Vital Signs Vital Sign Reading Time Taken Comments Blood Pressure 112/62 11/14/2012 4:46 PM CDT Pulse 64 11/14/2012 4:46 PM CDT Temperature - - Respiratory Rate 16 11/14/2012 4:46 PM CDT Oxygen Saturation - - Inhaled Oxygen Concentration - - Weight 66.7 kg (147 lb 0.8 oz) 11/14/2012 4:46 PM CDT Height - - Body Mass Index 24.8 06/17/2011 3:07 PM CDT documented in this encounter Medications at Time of Discharge Medication Sig Dispensed Refills Start Date End Date clonazePAM (KlonoPIN) 2 Twice A Day 0 08/27/2010 mg tablet buprenorphine-naloxone Place 1 Dose under 0 11/0911/04/2019 (SUBOXONE) 8-2 mg per SL the tongue 2 (two) film times a day. documented as of this encounter Progress Notes Michela Velasquez M.D. - 11/14/2012 4:32 PM CDT [id number] CHIEF COMPLAINT/REASON FOR VISIT A 26-year-old male who is worried about STDs again. Apparently had sexual activity with same partneras he had prior to his last STD check but he does not know who she might have been with since then, just wants to be checked again. He also has been having a little bit of soreness in his mouth, was not sure what was going on there. His tongue had changed color but changed right back again yesterday. Is not sure what was going on with that although it is not persistent at this time for us to examine. Vital signs per EMR. PHYSICAL EXAMINATION Oropharynx showing a couple small cold sores, 1 on the left buccal mucosa, 1 toward the tip of tongue. No other unusual findings in the oropharynx at this time. CVA nontender on exam. Patient deferred on genital area exam at this time. We are going to get another urine test today for chlamydia/gonorrhea. Will notify him of those results as available. Conservative measures for cold sores are discussed. IMPRESSION/REPORT/PLAN 1. Cold sores: 2. Possible exposure to sexually-transmitted diseases. PLAN: As above. Follow up as needed with primary care. Michela Velasquez M.D./neel Electronically Signed By: MICHELA VELASQUEZ MD On: 11/19/2012 08:31 AM Source: [facility] MHSDOLBEYNONRADSYS Document Id: [id number] documented in this encounter Miscellaneous Notes Miscellaneous - Dante Manrique M.D. - 11/16/2012 1:49 PM CDT Results Notification Document Contains Addenda Addendum by SYDNEY MARTINI on 19 November 2012 09:15:16 CDT Pt notified of results Addendum by SYDNEY MARTINI on 16 November 2012 17:13:27 CDT left message to call back Addendum by ROSA ELENA MATA on 16 November 2012 16:31:24 CDT called back- call [phone] Addendum by KRISTIE LIN on 16 November 2012 14:36:13 CDT Left message to call back From: DANTE MANRIQUE MD To: Same Day Nurse; Sent: 11/16/2012 13:49:35 CDT ! Show up: 11/16/2012 18:49:35 [facility] Subject: Results Notification Actions: Notify patient-refer to General Message Reminder Comments: GC and Chlamydia negative Results: Date Result Name Value Ref Range 11/14/2012 17:24 C trach Amp Src-Bergoo URINE 11/14/2012 17:24 C trach Amp RNA-Bergoo Negative (Negative - ) 11/14/2012 17:24 N gonor Amp DNA-Bergoo Negative (Negative - ) 11/14/2012 17:24 N gonor Amp Src-Bergoo URINE Source: [facility] [employer] Document Id: [id number] Electronically signed by Conversion, [facility] [employer] [id number] at 08/03/2016 5:23 PM CDT Miscellaneous - Michela Velasquez M.D. - 11/14/2012 4:56 PM CDT Ambulatory Patient Summary [facility] [address] [place] [id number] Visit Information Name: ALEJANDRA ADHIKARI [facility] Number: [id number] Current Date: 11/14/2012 16:56:24 Physicians Attending Provider: UNKNOWN1, PROVIDER Primary Care Provider: FEDERICO FRANKLIN MD Your Medications Here is a list of your medications. It is important to take your medications as directed. Use a pillbox or chart to help remind you to take your medications. Please let your doctor or nurse know if you have problems taking your medications. Medication/Strength Dose Route Frequency Indications/Special Instructions/Comments/Notes dextroamphetamine-amphetamine (Adderall XR 25 mg oral capsule, extended release) 25 mg Oral once a day (in the morning) ADHD dextroamphetamine-amphetamine (Adderall XR 25 mg oral capsule, extended release) 25 mg Oral once a day (in the morning) ADHD clonazePAM (Klonopin 2 mg oral tablet) 2 mg Oral two times a day Anxiety ALPRAZolam (Xanax 1 mg oral tablet) 1 mg Oral two times a day anxiety hydrocortisone topical (hydrocortisone 2.5% topical lotion) 1 sadia Topical two times a day sertraline (sertraline 100 mg oral tablet) 150 mg Oral once a day anxiety, depression omeprazole (omeprazole 20 mg oral delayed release capsule) 20 mg Oral once a day Heartburn, ulcer dextroamphetamine-amphetamine (Adderall XR 25 mg oral capsule, extended release) 25 mg Oral once a day (in the morning) ADHD buprenorphine-naloxone (Suboxone 8 mg-2 mg sublingual film) 1 each Sublingual two times a day For addiction (dissolve under the tongue) ondansetron (Zofran 4 mg oral tablet) 4 mg Oral every 8 hours as needed for Nausea Attention: If you have any medications at home that are not on this list, DO NOT take them until youcontact your provider for clarification. Your Allergies & Intolerances Substance Reaction Symptoms [...] Time Location Reason Provider No Appointments found Your Goals/Additional instructions: Source: [facility] POWERCHART Document Id: [id number] Miscellaneous - Michela Velasquez M.D. - 11/14/2012 4:56 PM CDT Ambulatory Depart Summary [facility] [address] [place] [id number] Visit Information Name: ALEJANDRA ADHIKARI [facility] Number: [id number] Visit Date: 11/14/2012 16:56:23 Attending Provider: UNKNOWN1, PROVIDER Primary Care Provider: FEDERICO FRANKLIN MD ALEJANDRA ADHIKARICHINO has been given the following list of medications: Your Medications It is important to take your medications as directed. Use a pill box or chart to help remind you to take your medications. Please let your doctor or nurse know if you have problems taking your medications. Medication/Strength Dose Route Frequency Indications/Special Instructions/Comments/Notes dextroamphetamine-amphetamine (Adderall XR 25 mg oral capsule, extended release) 25 mg Oral once a day (in the morning) ADHD dextroamphetamine-amphetamine (Adderall XR 25 mg oral capsule, extended release) 25 mg Oral once a day (in the morning) ADHD clonazePAM (Klonopin 2 mg oral tablet) 2 mg Oral two times a day Anxiety ALPRAZolam (Xanax 1 mg oral tablet) 1 mg Oral two times a day anxiety hydrocortisone topical (hydrocortisone 2.5% topical lotion) 1 sadia Topical two times a day sertraline (sertraline 100 mg oral tablet) 150 mg Oral once a day anxiety, depression omeprazole (omeprazole 20 mg oral delayed release capsule) 20 mg Oral once a day Heartburn, ulcer dextroamphetamine-amphetamine (Adderall XR 25 mg oral capsule, extended release) 25 mg Oral once a day (in the morning) ADHD buprenorphine-naloxone (Suboxone 8 mg-2 mg sublingual film) 1 each Sublingual two times a day For addiction (dissolve under the tongue) ondansetron (Zofran 4 mg oral tablet) 4 mg Oral every 8 hours as needed for Nausea Attention: If you have any medications at home that are not on this list, DO NOT take them until youcontact your provider for clarification. Additional Information: Source: [facility] POWERCHART Document Id: [id number] Miscellaneous - Berhane Jarquin, C.M.A. 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 Abnormal colored. Was seen in clinic on 11/01/[address] Paulina Franklin and had some STD testing done but never got his results. Noticed some inflammation on tip of penis. Temperature Oral : 36.8 DegC(Converted to: 98.2 DegF) Peripheral Pulse Rate : 64 /min Respiratory Rate : 16 /min Systolic Blood Pressure : 112 mmHg Diastolic Blood Pressure : 62 mmHg NIBP Mean : 79 mmHg BP Location : Right upper extremity Blood Pressure Cuff Size : Regular Actual Weight : 66.7 kg(Converted to: 147 lb 1 oz) Weight Source : Standing scale Dosing Weight Clinic : 66.7 kg BERHANE JARQUIN - 11/14/2012 16:46 CDT General Info Information Given By : Patient Languages : [place]inean ANN BERHANE Anna - 11/14/2012 16:46 CDT Subjective Pain Symptoms : No BERHANE JARQUIN - 11/14/2012 16:46 CDT Dependent Habits Tobacco Use/Currently Using : Yes Exposure to Tobacco Smoke : Patient smokes Smoking Status : Current every day smoker ANN BERHANE Anna - 11/14/2012 16:46 CDT Tobacco Use Grid Type : Cigarettes Cigarette Use Packs/Day : 0.5 BERHANE JARQUIN - 11/14/2012 16:46 CDT Caffeine Use Grid Caffeine Use : Current Type : Soft drinks Frequency : Daily Amount : 3 cans daily BERHANE JARQUIN - 11/14/2012 16:46 CDT Recreational Drug Use Grid Drug Use : None BERHANE JARQUIN - 11/14/2012 16:46 CDT Source: [facility] Document Id: [id number] CDT!36 documented in this encounter Plan of Treatment Not on filedocumented as of this encounter Procedures Procedure Name Priority Date/Time Associated Diagnosis Comme nts N GONOR AMP SRC Routine 11/14/2012 5:24 PM Result s for this CDT procedure are i n the results section. N GONOR AMP DNA Routine 11/14/2012 5:24 PM Result s for this CDT procedure are i n the results section. C TRACH AMP SRC Routine 11/14/2012 5:24 PM Result s for this CDT procedure are i n the results section. C TRACH AMP RNA Routine 11/14/2012 5:24 PM Result s for this CDT procedure are i n the results section. documented in this encounter Results HX-N gonor Amp DNA (11/14/2012 5:24 PM CDT) athologist Signature HXN gonor Amp Negative POWERCHART DNA-Bergoo Specimen (Source) Anatomical Collection Method Collection Time Re ceived Time Location / / Volume Laterality 11/14/2012 5:24 PM CDT Narrative POWERCHART - 11/15/2012 6:36 PM CDT Test Performed by: [address] [id number] Senior Lead Project Manager: Phong mcknight III, M.D. Michela Velasquez M.D. LAB HISTORICAL ORDERS Performing Organization Address City/State/ZIP Code Phon e Number POWERCHART HX-N gonor Amp Src (11/14/2012 5:24 PM CDT) athologist Signature HXN gonor Amp URINE POWERCHART Src-Bergoo Specimen (Source) Anatomical Collection Method Collection Time Re ceived Time Location / / Volume Laterality 11/14/2012 5:24 PM CDT Michela Velasquez M.D. LAB HISTORICAL ORDERS Performing Organization Address City/State/ZIP Code Phon e Number POWERCHART HX-C trach Amp RNA (11/14/2012 5:24 PM CDT) [facility] Method Time [facility] Chlamydia Negative POWERCHART trachomatis amplified RNA Specimen (Source) Anatomical Collection Method Collection Time Re ceived Time Location / / Volume Laterality 11/14/2012 5:24 PM CDT Michela Velasquez M.D. LAB HISTORICAL ORDERS Performing Organization Address City/State/ZIP Code Phon e Number POWERCHART HX-C trach Amp Src (11/14/2012 5:24 PM CDT) athologist Signature HXC trach Amp URINE POWERCHART Src-Bergoo Specimen (Source) Anatomical Collection Method Collection Time Re ceived Time Location / / Volume Laterality 11/14/2012 5:24 PM CDT Michela Velasquez M.D. LAB HISTORICAL ORDERS Performing Organization Address City/State/ZIP Code Phon e Number POWERCHART documented in this encounter Visit Diagnoses Not on filedocumented in this encounter Additional Health Concerns Assessment Noted Time PHQ-9 Depression Total Score: 4 05/23/2012 10:47 AM CD T documented as of this encounter
--- OUTSIDE RECORDS SUMMARY | 2022-02-10 14:42 | XMS_ITS | Encounter Summary ---
:1985 Author Organization [facility] Address [address] [place] [address] Care Team Providers Name Role Phone Unavailable Primary Care Provider Unavailable Encounter Details Date Type Department Care Team Description 04/26/2013 Hospital Encounter [facility]X [facility] Niecy Felder M.D. [address] [facility], [place] [phone] (Wo rk) Social History Tobacco Use Types Packs/Day Years Used Date Smoking Tobacco: Never Assessed Sex Assigned at Date Recorded Male 10/17/2017 10:58 AM CDT documented as of this encounter Last Filed Vital Signs Vital Sign Reading Time Taken Comments Blood Pressure 98/64 04/26/2013 2:25 PM JAVA SYBASE DEVELOPER Pulse 68 04/26/2013 2:25 PM JAVA SYBASE DEVELOPER Temperature - - Respiratory Rate 16 04/26/2013 2:25 PM JAVA SYBASE DEVELOPER Oxygen Saturation - - Inhaled Oxygen Concentration - - Weight 62.8 kg (138 lb 7.2 oz) 04/26/2013 2:25 PM JAVA SYBASE DEVELOPER Height - - Body Mass Index 22.79 01/14/2013 4:02 PM JAVA SYBASE DEVELOPER documented in this encounter Medications at Time of Discharge Medication Sig Dispensed Refills Start Date End Date clonazePAM (KlonoPIN) 2 Twice A Day 0 08/27/2010 mg tablet buprenorphine-naloxone Place 1 Dose under 0 11/0911/04/2019 (SUBOXONE) 8-2 mg per SL the tongue 2 (two) film times a day. documented as of this encounter Progress Notes Carmela Felder M.D. - 04/26/2013 2:17 PM CST [id number] CHIEF COMPLAINT/REASON FOR VISIT Follow up seborrhea. HISTORY OF PRESENT ILLNESS This 27-year-old male is here for followup of seborrhea of the face. He says he does not like the ketoconazole cream because it is too thick. He is washing his face with Cetaphil cleanser. He occasionally uses a little cortisone cream on his face and he just bought a new one that has 1% hydrocortisoneand aloe in it. IMPRESSION/REPORT/PLAN Exam of face shows just some mild erythema along the sides of the nose. There are 2 patches of erythema and scaling on each cheek about 1 cm in diameter. IMPRESSION/REPORT/PLAN Seborrhea. He will continue using Cetaphil cleanser but instead of the ketoconazole which is too thick for him, he can use the [id number] cream with 1% hydrocortisone on the red areas. Recommended he use sunscreen when he is outside and Vaseline on the dry scaly areas at night. He will follow upas needed. Carmela Felder M.D./nithin Electronically Signed By: CARMELA FELDER MD On: 04/30/2013 04:52 PM Source: [facility] MHSDOLBEYNONRADSYS Document Id: [id number] SYBASE DEVELOPER documented in this encounter Miscellaneous Notes Miscellaneous - Mirian De Leon, PaulinaPGermanN. - 04/26/2013 2:25 PM CST Adult Clinical Team Lead Intake/History Adult Clinical Team Lead Intake/History Entered On: 04/26/2013 14:30 JAVA SYBASE DEVELOPER Performed On: 04/26/2013 14:25 JAVA SYBASE DEVELOPER by MIRIAN DE LEON Intake Chief Complaint : Follow Up Peripheral Pulse Rate : 68 /min Respiratory Rate : 16 /min Systolic Blood Pressure : 98 mmHg Diastolic Blood Pressure : 64 mmHg NIBP Mean : 75 mmHg BP Location : Right upper extremity Blood Pressure Cuff Size : Regular Actual Weight : 62.8 kg(Converted to: 138 lb 7 oz) Weight Source : Standing scale Dosing Weight Clinic : 62.8 kg MIRIAN DE LEON - 04/26/2013 14:25 JAVA SYBASE DEVELOPER General Info Information Given By : Patient Preferred Communication Mode : Verbal Languages : [place]er MIRIAN DE LEON - 04/26/2013 14:25 JAVA SYBASE DEVELOPER Subjective Pain Symptoms : No MIRIAN DE LEON - 04/26/2013 14:25 JAVA SYBASE DEVELOPER Dependent Habits Tobacco Use/Currently Using : Yes Exposure to Tobacco Smoke : Patient smokes Smoking Status : Current every day smoker MIRIAN DE LEON - 04/26/2013 14:25 JAVA SYBASE DEVELOPER Tobacco Use Grid Type : Cigarettes Cigarette Use Packs/Day : 0.5 MIRIAN DE LEON - 04/26/2013 14:25 JAVA SYBASE DEVELOPER Caffeine Use Grid Caffeine Use : None MIRIAN DE LEON - 04/26/2013 14:25 JAVA SYBASE DEVELOPER Recreational Drug Use Grid Drug Use : None MIRIAN DE LEON - 04/26/2013 14:25 JAVA SYBASE DEVELOPER [facility] Document Id: [id number] JAVA SYBASE DEVELOPER!33 SYBASE DEVELOPER documented in this encounter Plan of Treatment Not on filedocumented as of this encounter Visit Diagnoses Not on filedocumented in this encounter Additional Health Concerns Assessment Noted Time PHQ-9 Depression Total Score: 7 01/14/2013 4:05 PM JAVA SYBASE DEVELOPER documented as of this encounter
--- OUTSIDE RECORDS SUMMARY | 2022-02-10 14:42 | XMS_ITS | Encounter Summary ---
:1985 Author Organization [facility] Address [address] [place] [address] Care Team Providers Name Role Phone Unavailable Primary Care Provider Unavailable Encounter Details Date Type Department Care Team Description 01/14/2013 Hospital Encounter HX [facility] Tania Franklin M.D. Social History Tobacco Use Types Packs/Day Years Used Date Smoking Tobacco: Never Assessed Sex Assigned at Date Recorded Male 10/17/2017 10:58 AM CDT documented as of this encounter Last Filed Vital Signs Vital Sign Reading Time Taken Comments Blood Pressure 120/72 01/14/2013 4:02 PM SWIMMING [employer]OL CLEANER Pulse 84 01/14/2013 4:02 PM SWIMMING [employer]ER Temperature - - Respiratory Rate 18 01/14/2013 4:02 PM SWIMMING [employer]ER Oxygen Saturation - - Inhaled Oxygen Concentration - - Weight 66 kg (145 lb 8.1 oz) 01/14/2013 4:02 PM SWIMMING [employer]OL CLE[employer]ER Height 166 cm (5' 5.35) 01/14/2013 4:02 PM SWIMMING [employer]OL CLE[employer]ER Body Mass Index 23.95 01/14/2013 4:02 PM SWIMMING [employer]OL CLE[employer]ER documented in this encounter Medications at Time of Discharge Medication Sig Dispensed Refills Start Date End Date clonazePAM (KlonoPIN) 2 Twice A Day 0 08/27/2010 mg tablet buprenorphine-naloxone Place 1 Dose under 0 11/0911/04/2019 (SUBOXONE) 8-2 mg per SL the tongue 2 (two) film times a day. documented as of this encounter Progress Notes Federico Andino M.D. - 01/14/2013 3:46 PM CST [id number] CHIEF COMPLAINT/REASON FOR VISIT Follow up on anxiety, depression, ADHD HISTORY OF PRESENT ILLNESS Alejandra is a 27-year-old male presenting today for a follow up on his anxiety, depression, and ADHD. Hestates that things are not going as well as when I saw him last. He's just been feeling a bit overwhelmed by a number of tragedies, and people that are continuing to use and having problems in calling him. He also is discouraged because his family gives him very limited support. We reviewed that he violated their trust for years and that although he knows he is sober, they I am certain are worried that he is not or will not stay clean and that this is really still kind of payback for all of the stress and grief he caused them and it may take years to reestablish the trust he broke. He is apparentlyclose to be able to obtain a vehicle and has a job lined up in [place] if he can get transportation. He has also been looking into attending a technical school, thinking about auto bodywork. He admits he also feels more stressed with the change of season and does not do as well in the winter. Unfortunately he has quit exercising and has really isolated himself. He also states he has had several varying relations with women and none of them have worked out. We did discuss that perhaps he really needs to work on getting his own life in order before deciding he is at a point to share it with others, and we agrees. We again reviewed his medications and he is extremely anxious and resistant to changing, feeling this is still the best he has functioned in years and is afraid of a setback if we try to modify anything. I agreed at this point to continue, but encouraged him again to limit the use of his Xanax, or consider increasing his clonazepam to 3mg b.i.d. MEDICATIONS Reviewed and updated in the EMR dated 01/14/13 ALLERGIES Reviewed and updated in the EMR dated 01/14/13 VITAL SIGNS HEIGHT: 166 cm WEIGHT: 66 kg BMI: 23.95 kg/m2 TEMP: 36.9 DegC PULSE: 84 /min RESP RATE: 18 /min SYSTOLIC: 120 mmHg DIASTOLIC: 72 mmHg PHYSICAL EXAMINATION GENERAL: Well-developed male in no acute distress. MENTAL STATUS: PHQ9 score of 7 stating things are somewhat difficult. IMPRESSION/REPORT/PLAN 1. Anxiety Plan: as noted above, encouraged him to continue to try and decrease his Xanax use. Also encouraged him to get back into working out and finding other positive ways of improving anxiety. 2. Depression Plan: Discussed the possibility of increasing his Zoloft to 200mg per day, but he really did not want to do that. He is very hopeful that if he does get a car and gets back to working that his mood will improve. We will plan on reassessing again in about 2 months and readdress possible increasing his medications if he is having any worsening depressive symptoms. 3. ADHD Plan: Continue with Adderall. 4. Recent situational stress Plan: Reviewed more appropriate ways to try and deal with the stress and encouraged him to continue with his support meetings and to set goals for his future. ADMINISTRATIVE BILLING Greater than half of this 30 minute visit was spent in counseling regarding all of the above. This document serves as a record of services personally performed by Dr. Federico Franklin. It was created on their behalf by Stephanie Solomon, a trained medical imaging specialist. The creation of this record is based on the scribe's personal observations and the provider's statements to them. This document has been checked and approved by the attending provider. Federico Franklin M.D./rakesh Electronically Signed By: FEDERICO FRANKLIN MD On: 01/14/2013 06:14 PM Source: [facility] MHSDOLBEYNONRADSYS Document Id: [id number] MING [employer]OL CLEANER documented in this encounter Miscellaneous Notes Miscellaneous - Federico Andino M.D. - 01/14/2013 4:42 PM SWIMMING [employer]OL CLE[employer]ER Ambulatory Patient Summary [facility] [address] [place] [address] Visit Information Name: ALEJANDRA ADHIKARI JUAN MANUEL [facility] Number: [id number] Current Date: 01/14/2013 16:42:02 Physicians Attending Provider: FEDERICO FRANKLIN MD Primary [...] medications. Medication/Strength Dose Route Frequency Indications/Special Instructions/Comments/Notes clonazePAM (Klonopin 2 mg oral tablet) 2 mg Oral two times a day Anxiety ALPRAZolam (Xanax 1 mg oral tablet) 1 mg Oral two times a day anxiety dextroamphetamine-amphetamine (Adderall XR 25 mg oral capsule, extended release) 25 mg Oral once a day (in the morning) ADHD *triamcinolone topical (Kenalog in Orabase 0.1% mucous membrane paste) 1 sadia Topical four times a day sores in mouth dextroamphetamine-amphetamine (Adderall XR 25 mg oral capsule, extended release) 25 mg Oral once a day (in the morning) ADHD clonazePAM (Klonopin 2 mg oral tablet) 2 mg Oral two times a day Anxiety ALPRAZolam (Xanax 1 mg oral tablet) 1 mg Oral two times a day anxiety *hydrocortisone topical (hydrocortisone 2.5% topical lotion) 1 sadia Topical two times a day sertraline (sertraline 100 mg oral tablet) 150 mg Oral once a day anxiety, depression *omeprazole (omeprazole 20 mg oral delayed release capsule) 20 mg Oral once a day Heartburn, ulcer buprenorphine-naloxone (Suboxone 8 mg-2 mg sublingual film) 1 each Sublingual two times a day For addiction (dissolve under the tongue) ondansetron (Zofran 4 mg oral tablet) 4 mg Oral every 8 hours as needed for Nausea * You have let us know that you are not taking this medication as listed. Please talk with your primary care provider or the health care provider who prescribed the medication as soon as possible. Attention: If you have any medications at [...] Upcoming Appointments Date Time Location Reason Provider 01/16/2013 15:00 [facility] 3 month sagrario Felder MD, Ama Dove Attention: Contact your local Clinic if further appointment detail needed. Your Goals/Additional instructions: Source: [facility] POWERCHART Document Id: [id number] MING PO[employer] CLEANER Miscellaneous - Federico Andino M.D. - 01/14/2013 4:42 PM SWIMMING [employer]OL CLE[employer]ER Ambulatory Depart Summary [address] [address] Visit Information Name: LYLE ALEJANDRA ZAMBRANO [facility] Number: [id number] Visit Date: 01/14/2013 16:42:02 Attending Provider: FEDERICO FRANKLIN MD Primary Care [...] medications. Medication/Strength Dose Route Frequency Indications/Special Instructions/Comments/Notes clonazePAM (Klonopin 2 mg oral tablet) 2 mg Oral two times a day Anxiety ALPRAZolam (Xanax 1 mg oral tablet) 1 mg Oral two times a day anxiety dextroamphetamine-amphetamine (Adderall XR 25 mg oral capsule, extended release) 25 mg Oral once a day (in the morning) ADHD *triamcinolone topical (Kenalog in Orabase 0.1% mucous membrane paste) 1 sadia Topical four times a day sores in mouth dextroamphetamine-amphetamine (Adderall XR 25 mg oral capsule, extended release) 25 mg Oral once a day (in the morning) ADHD clonazePAM (Klonopin 2 mg oral tablet) 2 mg Oral two times a day Anxiety ALPRAZolam (Xanax 1 mg oral tablet) 1 mg Oral two times a day anxiety *hydrocortisone topical (hydrocortisone 2.5% topical lotion) 1 sadia Topical two times a day sertraline (sertraline 100 mg oral tablet) 150 mg Oral once a day anxiety, depression *omeprazole (omeprazole 20 mg oral delayed release capsule) 20 mg Oral once a day Heartburn, ulcer buprenorphine-naloxone (Suboxone 8 mg-2 mg sublingual film) 1 each Sublingual two times a day For addiction (dissolve under the tongue) ondansetron (Zofran 4 mg oral tablet) 4 mg Oral every 8 hours as needed for Nausea * You have let us know that you are not taking this medication as listed. Please talk with your primary care provider or the health care provider who prescribed the medication as soon as possible. Attention: If you have any medications at home that are not on this list, DO NOT take them until youcontact your provider for clarification. Additional Information: Source: [facility] Document Id: [id number] MING [employer] CLE[employer]ER Miscellaneous - Vanessa Barba - 01/14/2013 4:05 PM CST PHQ-9 PHQ-9 Entered On: 01/15/2013 9:53 SWIMMING [employer] CLE[employer]ER Performed On: 01/14/2013 16:05 SWIMMING POOL CLEANER by VANESSA BARBA PHQ-9 Little interest or pleasure in doing things : Several days Feeling down, depressed, or hopeless : Several days Trouble falling or staying asleep, or sleeping too much : Several days Feeling tired or having little energy : Several days Poor appetite or overeating : Not at all Feeling bad about yourself or that you are a failure : More than half the days Trouble concentrating on things : Several days Moving or speaking slowly; restless or fidgety : Not at all Thoughts that you would be better off /hurting self : Not at all PHQ-9 Calculated Score : 7 Problems make work, home, or dealing with others : Somewhat difficult VANESSA BARBA - 01/15/2013 9:52 SWIMMING POOL CLEANER Source: [employer] Document Id: [id number] SWIMMING POOL CLEANER!13 MING POOL CLEANER Miscellaneous - Conversion, Historical Provider Ser - 01/14/2013 4:02 PM SWIMMING [employer] CLE[employer]ER 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/History Entered On: 01/14/2013 16:06 SWIMMING [employer] CLE[employer]ER Performed On: 01/14/2013 16:02 SWIMMING POOL CLEANER by IVELISSE CABRAL Intake Chief Complaint : Med refills Wants to see Urology penis hurts, fans out when urinating, stinging, no discharge Has had a cystoscopy back in like 2008 in [place] Temperature Oral : 36.9 DegC(Converted to: 98.4 DegF) Peripheral Pulse Rate : 84 /min Respiratory Rate : 18 /min Heart Rhythm : Regular Systolic Blood Pressure : 120 mmHg Diastolic Blood Pressure : 72 mmHg NIBP Mean : 88 mmHg BP Location : Right upper extremity Blood Pressure Cuff Size : Large Height : 166 cm(Converted to: 5 ft 5 inch(es), 65.35 inch(es)) Actual Weight : 66.0 kg(Converted to: 145 lb 8 oz) Weight Source : Standing scale Dosing Weight Clinic : 66 kg Clinic BSA : 1.74 Body Mass Index : 23.95 kg/m2 IVELISSE CABRAL 01/14/2013 16:02 SWIMMING [employer] CLE[employer]ER General Info Information Given By : Patient Languages : Libyan IVELISSE CABRAL 01/14/2013 16:02 SWIMMING [employer] CLE[employer]ER Subjective Pain Symptoms : Yes IVELISSE CABRAL 01/14/2013 16:02 SWIMMING [employer]ER Pain Pain Assessment Grid Pain 1 Location : Other: Penis IVELISSE CABRAL 01/14/2013 16:02 SWIMMING [employer]OL CLE[employer]ER Dependent Habits Tobacco Use/Currently Using : Yes Exposure to Tobacco Smoke : Patient smokes Smoking Status : Current every day smoker IVELISSE CABRAL 01/14/2013 16:02 SWIMMING [employer] CLE[employer]ER Tobacco Use Grid Type : Cigarettes Cigarette Use Packs/Day : 1.0 IVELISSE CABRAL 01/14/2013 16:02 SWIMMING [employer] CLE[employer]ER Caffeine Use Grid Caffeine Use : Current Type : Soft drinks Frequency : Daily Amount : 3 cans daily IVELISSE CABRAL 01/14/2013 16:02 SWIMMING POOL CLEANER Recreational Drug Use Grid Drug Use : None IVELISSE CABRAL 01/14/2013 16:02 SWIMMING POOL CLEANER Source: [facility] POWERCHART Document Id: [id number] SWIMMING POOL CLEANER!44 documented in this encounter Plan of Treatment Not on filedocumented as of this encounter Visit Diagnoses Not on filedocumented in this encounter Additional Health Concerns Assessment Noted Time PHQ-9 Depression Total Score: 7 01/14/2013 4:05 PM SWIMMING POOL CLE[employer]ER documented as of this encounter
--- OUTSIDE RECORDS SUMMARY | 2022-02-10 14:42 | XMS_ITS | Encounter Summary ---
:1985 Author Organization [facility] Address [address] [place] [address] Care Team Providers Name Role Phone Unavailable Primary Care Provider Unavailable Encounter Details Date Type Department Care Team Description 11/15/2012 Hospital Encounter HX [facility] Filiberto Chavira M.D. Social History Tobacco Use Types Packs/Day Years Used Date Smoking Tobacco: Never Assessed Sex Assigned at Date Recorded Male 10/17/2017 10:58 AM CDT documented as of this encounter Last Filed Vital Signs Vital Sign Reading Time Taken Comments Blood Pressure 106/60 11/15/2012 1:28 PM CDT Pulse 60 11/15/2012 1:28 PM CDT Temperature - - Respiratory Rate - - Oxygen Saturation - - Inhaled Oxygen Concentration - - Weight 66.7 kg (147 lb 0.8 oz) 11/15/2012 1:28 PM CDT Height - - Body Mass [...] documented as of this encounter Progress Notes Filiberto Chavira M.D. - 11/15/2012 1:20 PM CDT [id number] CHIEF COMPLAINT/REASON FOR VISIT Sores in his mouth. HISTORY OF PRESENT ILLNESS Patient has got a couple canker sores in his mouth and wanted to have it checked. He yesterday was in urgent care. Some friends said it could be chlamydia and he wanted that tested. It was tested in urgent care yesterday. He has not been sick. He has not had any rash anywhere else other than his eczema. He has not had any fever, chills, or anything other than the sores that are sore. They are both kind of symmetric, sides of cheek just opposite his uppermost posterior molars. ALLERGIES NSAIDs. CURRENT MEDICATIONS Reviewed. VITAL SIGNS Weight 66.7 kg, pulse 60, blood pressure 106/60. PHYSICAL EXAMINATION Healthy-appearing male. ENT: TMs are clear. Nose negative. Throat: he does have 2 small maybe aphthous ulcers symmetrically at insides of the buccal mucosa. No other lesions. No thrush. Throat not injected. Neck without lymphadenopathy. Chest is clear. IMPRESSION/REPORT/PLAN Aphthous stomatitis. PLAN: Since he has got a chlamydia/gonorrhea test pending we certainly are not concerned about this and we are going to go ahead and have him await those results. However, I think this is just a viral illness and will give some Kenalog and Orabase. He will let us know if this is not improving or worsening. Did reassure him that it is certainly not a sign for significant sexually- transmitted disease. He has been tested end of the month and wanted retest in case the 1rst one mixed up. He has not had any further exposure. He is not having any other symptoms, so we will not do any further testing. However dictation from his urgent care visit yesterday is not available at time of this dictation. Filiberto Chavira M.D./neel Electronically Signed By: FILIBERTO CHAVIRA MD On: 11/19/2012 11:08 AM Source: [facility] MHSDOLBEYNONRADSYS Document Id: [id number] documented in this encounter Miscellaneous Notes Miscellaneous - Filiberto Chavira M.D. - 11/15/2012 2:21 PM CDT Ambulatory Patient Summary [address] [address] Visit Information Name: ALEJANDRA ADHIKARI [facility] Number: [id number] Current Date: 11/15/2012 14:21:04 Physicians Attending Provider: FILIBERTO CHAVIRA MD Primary Care Provider: FEDERICO CHO MD Your Medications Here is a list of your medications. It is important to take your medications as directed. Use a pillbox or chart to help remind you to take your medications. Please let your doctor or nurse know if you have problems taking your medications. Medication/Strength Dose Route Frequency Indications/Special Instructions/Comments/Notes triamcinolone topical (Kenalog in Orabase 0.1% mucous membrane paste) 1 sadia Topical four times a daysores in mouth dextroamphetamine-amphetamine (Adderall XR 25 mg [...] No Appointments found Your Goals/Additional instructions: Source: [facility] POWERCHART Document Id: [id number] Miscellaneous - Filiberto Chavira M.D. - 11/15/2012 2:21 PM CDT Ambulatory Depart Summary [facility] [address] [place] [address] Visit Information Name: ALEJANDRA ADHIKARI [facility] Number: [id number] Visit Date: 11/15/2012 14:21:03 Attending Provider: FILIBERTO CHAVIRA MD Primary Care Provider: FEDERICO CHO MD ALEJANDRA ADHIKARICHINO has been given the following list of medications: Your Medications It is important to take your medications as directed. Use a pill box or chart to help remind you to take your medications. Please let your doctor or nurse know if you have problems taking your medications. Medication/Strength Dose Route Frequency Indications/Special Instructions/Comments/Notes triamcinolone topical (Kenalog in Orabase 0.1% mucous membrane paste) 1 sadia Topical four times a daysores in mouth dextroamphetamine-amphetamine (Adderall XR 25 mg [...] your provider for clarification. 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 Entered On: 11/15/2012 13:33 CDT Performed On: 11/15/2012 13:28 CDT by CATALINA ALEXANDER Intake Chief Complaint : sore in mouth/ bumps in mouth cheeks Onset of Symptoms : 4 days ago Ambulatory Intake Additional Information : seen in urgent care Peripheral Pulse Rate : 60 /min Heart Rhythm : Regular Systolic Blood Pressure : 106 mmHg Diastolic Blood Pressure : 60 mmHg NIBP Mean : 75 mmHg BP Location : Right upper extremity Blood Pressure Cuff Size : Regular Actual Weight : 66.7 kg(Converted to: 147 lb 1 oz) Weight Source : Standing scale Dosing Weight Clinic : 66.7 kg CATALINA ALEXANDER - 11/15/2012 13:28 CDT General Info Information Given By : Patient Preferred Communication Mode : Verbal Languages : Sami CATALINA ALEXANDER - 11/15/2012 13:28 CDT Subjective Pain Symptoms : Yes CATALINA ALEXANDER 11/15/2012 13:28 CDT Pain Pain Assessment Grid Pain 1 Location : Mouth CATALINA ALEXANDER 11/15/2012 13:28 CDT Dependent Habits Tobacco Use/Currently Using : Yes Exposure to Tobacco Smoke : Patient smokes Smoking Status : Current every day smoker CATALINA ALEXANDER 11/15/2012 13:28 CDT Tobacco Use Grid Type : Cigarettes Cigarette Use Packs/Day : 0.5 CATALINA ALEXANDER 11/15/2012 13:28 CDT Caffeine Use Grid Caffeine Use : Current Type : Soft drinks Frequency : Daily Amount : 3 cans daily CATALINA ALEXANDER - 11/15/2012 13:28 CDT Recreational Drug Use Grid Drug Use : None CATALINA ALEXANDER - 11/15/2012 13:28 CDT Source: [facility] [employer] Document Id: [id number] CDT!42 documented in this encounter Plan of Treatment Not on filedocumented as of this encounter Visit Diagnoses Not on filedocumented in this encounter Additional Health Concerns Assessment Noted Time PHQ-9 Depression Total Score: 4 05/23/2012 10:47 AM CD T documented as of this encounter
--- OUTSIDE RECORDS SUMMARY | 2022-02-10 14:42 | XMS_ITS | Encounter Summary ---
:1985 Author Organization [facility] Address [address] [place] [id number] Care Team Providers Name Role Phone Unavailable Primary Care Provider Unavailable Encounter Details Date Type Department Care Team Description 09/09/2013 Hospital Encounter HX [facility] Tania Franklin M.D. Social History Tobacco Use Types Packs/Day Years Used Date Smoking Tobacco: Never Assessed Sex Assigned at Date Recorded Male 10/17/2017 10:58 AM CDT documented as of this encounter Last Filed Vital Signs Vital Sign Reading Time Taken Comments Blood Pressure 110/70 09/09/2013 2:39 PM CDT Pulse 100 09/09/2013 2:39 PM CDT Temperature - - Respiratory Rate 16 09/09/2013 2:39 PM CDT Oxygen Saturation - - Inhaled Oxygen Concentration - - Weight 61.9 kg (136 lb 7.4 oz) 09/09/2013 2:39 PM CDT Height 166 cm (5' 5.35) 09/09/2013 2:36 PM CDT Body Mass Index 22.46 09/09/2013 2:36 PM CDT documented in this encounter Medications at Time of Discharge Medication Sig Dispensed Refills Start Date End Date clonazePAM (KlonoPIN) 2 Twice A Day 0 08/27/2010 mg tablet mometasone (NASONEX) 50 Administer 2 sprays 0 mcg/actuation nasal into each nostril spray daily. buprenorphine-naloxone Place 1 Dose under the 0 0 11/10/2011 11/04/2019 (SUBOXONE) 8-2 mg per tongue 2 (two) times a SL film day. documented as of this encounter Progress Notes Federico Andino M.D. - 09/09/2013 2:35 PM CDT [id number] CHIEF COMPLAINT/REASON FOR VISIT Follow up on ADHD, Marked generalized anxiety disorder HISTORY OF PRESENT ILLNESS Alejandra is a 27-year-old male presenting today for a follow up and refill of his medications. He continues to be troubled by recurrent anxiety attacks particularly if he doesnt take Klonopin. He continuesto average 1-2 Xanax a day as well. He develops a tingling sensation in the back of his head and oftentimes hands and feet intermittently throughout the day that continues to make him panic and worry about what else is going on, although he has not needed to go to the ER on his current regime for a long time. He is currently working intermittently. He is trying to figure out what further training mayallow him to get more gainful employment. 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 He definitely feels the Adderall is helping him function, although continues to feel his life is quite disorganized. MEDICATIONS Reviewed and updated in the EMR dated 09/09/13 ALLERGIES Reviewed and updated in the EMR dated VITAL SIGNS HEIGHT: 166 cm WEIGHT: 61.9 kg TEMP: 36.8 Deg C PULSE: 100 /min RESP RATE: 16 /min SYSTOLIC: 110 mmHg DIASTOLIC: 70 mmHg PHYSICAL EXAMINATION GENERAL: Well-developed male in no acute distress. No specific exam was done, just reviewed his current medications. IMPRESSION/REPORT/PLAN 1. Chronic anxiety with continued panic attacks Plan: Again he is extremely resistant to increasing his Zoloft, but we discussed at length that in spite of taking both Klonopin and Xanax as needed for his symptoms, they are not well controlled. He remains convinced that the only medications that help his anxiety are Klonopin and Xanax, but I reviewed again the fact that these drugs mask the symptoms rather than potentially modifying the brains function. He finally agreed to try the Zoloft 150mg 1 ?? tablets daily, and he will continue to use Klonopin 2mg b.i.d. Also encouraged him to use a diary to record his usage of Xanax, but he states that he is not capable of doing this. Refills were given of both Klonopin and Xanax. 2. ADHD, under adequate control Plan: Continue with his Adderall XR 25mg daily taken in the morning. This document serves as a record of services personally performed by Dr. Federico Franklin. It was created on their behalf by Nadege Vidal, a trained medical assisting program director. The creation of this record is based on the scribe's personal observations and the provider's statements to them. This document has been checked and approved by the attending provider. Federico Franklin M.D./becca Electronically Signed By: FEDERICO FRANKLIN MD On: 09/10/2013 07:12 PM Source: [facility] MHSDOLBEYNONRADSYS Document Id: [id number] documented in this encounter Miscellaneous Notes Telephone Encounter - Mercedez Mirza, R.N. - 12/06/2013 9:24 AM CDT Adderall PA Document Contains Addenda Addendum by IVELISSE CABRAL on 06 December 2013 10:58:04 CDT Submitted: Order:Rx Retail Pharmacy Communication Communication MISC Once ADDERALL PA WAS SENT TO INSURANCE COMP AWAITING DECISION Qty: 1 each Substitutions Allowed Route To Pharmacy - [facility], [place], [place] Signed by IVELISSE CABRAL Addendum by IVELISSE ACBRAL on 06 December 2013 10:56:58 CDT IN PROCESS From: MERCEDEZ MIRZA ([facility]ISHA [facility]) To: ANISHA Siani Nurse; Sent: 12/06/2013 09:24:15 CDT Subject: Adderall PA Caller is: ( ) Patient ( ) Mother ( ) Father ( ) Spouse ( ) Daughter ( ) Son ( ) Pharmacy ( ) Other: Physician: Paulina Franklin Patient MRN #: Reason for Call: Message: Could you please follow up with Mariza/ ANDREA on Alejandra's PA for Adderall. Pharmacy checked with Insurance and they have not received anything yet. Monday pharmacy faxed the PA information Advice/Action: Source used: ( ) Verbalizes understanding [...] back cell phone number ( ) Source: [facility] POWERCHART Document Id: [id number] Electronically signed by Herrera [facility] [place] Dredge Operator [id number] at 08/01/2016 11:17 PM CDT Miscellaneous - Federico Andino M.D. - 09/09/2013 3:00 PM CDT Ambulatory Patient Summary [address] [id number] Visit Information Name: ALEJANDRA ADHIKARI JUAN MANUEL [facility] Number: [id number] Current Date: 09/09/2013 15:00:49 Physicians Attending Provider: FEDERICO FRANKLIN MD Primary [...] (in the morning) ADHD Routed to Printer mometasone nasal (Nasonex 50 mcg/inh nasal spray) 2 [place](s), Nostrils(Both), once a day sertraline (Zoloft 100 mg oral tablet) 1.5 Tablet(s), Oral, once a day anxiety New Routed to [address] [address] Stop Taking the Following Medications: HYDROcodone-acetaminophen ([place] 5 mg-325 mg oral tablet) Medication list as of 09-09-13 15:00 Attention: If you have any medications at [...] Electronically Signed By: FEDERICO FRANKLIN MD Signed On:09-SEP-2013 15:00:42 Your Allergies & Intolerances Substance Reaction Symptoms [...] appointment detail needed. Your Goals/Additional instructions: Source: [facility] POWERCHART Document Id: [id number] Miscellaneous - Federico Andino M.D. - 09/09/2013 3:00 PM CDT Ambulatory Discharge Medication List [facility] [address] [place] [id number] Visit Information Name: LYLE ALEJANDRA ZAMBRANO [facility] Number: [id number] Visit Date: 09/09/2013 15:00:47 Attending Provider: FEDERICO FRANKLIN MD Primary Care [...] (in the morning) ADHD Routed to Printer mometasone nasal (Nasonex 50 mcg/inh nasal spray) 2 [place](s), Nostrils(Both), once a day sertraline (Zoloft 100 mg oral tablet) 1.5 Tablet(s), Oral, once a day anxiety New Routed to [address] [address] Stop Taking the Following Medications: HYDROcodone-acetaminophen ([place] 5 mg-325 mg oral tablet) Medication list as of 09-09-13 15:00 Attention: If you have any medications at [...] Electronically Signed By: FEDERICO FRANKLIN MD Signed On:09-SEP-2013 15:00:42 Additional Information: Source: [facility] POWERCHART Document Id: [id number] Miscellaneous - Conversion, Historical Provider Ser - 09/09/2013 2:39 PM CDT 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/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 Entered On: 09/09/2013 14:41 CDT Performed On: 09/09/2013 14:39 CDT by IVELISSE CABRAL Intake Chief Complaint : Med refills Temperature Oral : 36.8 DegC(Converted to: 98.2 DegF) Peripheral Pulse Rate : 100 /min Respiratory Rate : 16 /min Heart Rhythm : Regular Systolic Blood Pressure : 110 mmHg Diastolic Blood Pressure : 70 mmHg NIBP Mean : 83 mmHg BP Location : Right upper extremity Blood Pressure Cuff Size : Regular Actual Weight : 61.9 kg(Converted to: 136 lb 7 oz) Weight Source : Standing scale Dosing Weight Clinic : 61.9 kg IVELISSE CABRAL - 09/09/2013 14:39 CDT General Info Information Given By : Patient Languages : Azeri IVELISSE CABRAL - 09/09/2013 14:39 CDT Subjective Pain Symptoms : No IVELISSE CABRAL - 09/09/2013 14:39 CDT Dependent Habits Tobacco Use/Currently Using : Yes Exposure to Tobacco Smoke : Patient smokes Smoking Status : Current every day smoker IVELISSE CABRAL 09/09/2013 14:39 CDT Tobacco Use Grid Type : Cigarettes Cigarette Use Packs/Day : 0.5 IVELISSE CABRAL 09/09/2013 14:39 CDT Caffeine Use Grid Caffeine Use : None IVELISSE CABRAL 09/09/2013 14:39 CDT Recreational Drug Use Grid Drug Use : None IVELISSE CABRAL 09/09/2013 14:39 CDT [facility] Document Id: [id number] CDT!34 documented in this encounter Plan of Treatment Not on filedocumented as of this encounter Visit Diagnoses Not on filedocumented in this encounter Additional Health Concerns Assessment Noted Time PHQ-9 Depression Total Score: 4 06/06/2013 6:12 PM CDT documented as of this encounter
--- OUTSIDE RECORDS SUMMARY | 2022-02-10 14:42 | XMS_ITS | Encounter Summary ---
:1985 Author Organization [facility] Address [address] [place] [address] Care Team Providers Name Role Phone Unavailable Primary Care Provider Unavailable Encounter Details Date Type Department Care Team Description 04/24/2013 Hospital Encounter HX [facility] Ramírez Wood M.D. [address], [place] [address] (Wo rk) Social History Tobacco Use Types Packs/Day Years Used Date Smoking Tobacco: Never Assessed Sex Assigned at Date Recorded Male 10/17/2017 10:58 AM CDT documented as of this encounter Last Filed Vital Signs Vital Sign Reading Time Taken Comments Blood Pressure 102/60 04/24/2013 11:08 AM HEEL COVERER MACHINE OPERATOR Pulse 72 04/24/2013 11:08 AM HEEL COVERER MACHINE OPERATOR Temperature - - Respiratory Rate - [...] documented as of this encounter Progress Notes Ramírez Wood M.D. - 04/24/2013 10:58 AM CST [id number] CHIEF COMPLAINT / REASON FOR VISIT Gross hematuria. HISTORY OF PRESENT ILLNESS This patient is a 27-year-old male who presents to the clinic for a follow-up regarding a recent onset of gross hematuria. The patient was last seen in 2010 for possible infertility. The patient is known to have a history of an accessory urethra. Recently on 04/16/2013, the patient called the Urology Clinic complaining of dysuria and gross hematuria. The patient noted that the blood was observed at the end of his urinary stream. Urinalysis at that time revealed 3-10 RBCs and 1-3 WBCs per high powered field. Gonorrhea and chlamydia tests were negative. Today, the patient reports that he experienced just one episode of terminal gross hematuria coming out of his second opening. The patient is known to have an accessory urethra that is normally dry. On this one occasion, the patient noticed a strong narrow caliber accessory stream where at the tail endnoticed a small blood clot. He denied any additional episodes of observing blood or clots in his urine. This was associated with a small amount of dysuria which was felt throughout the urethral. The patient denies any frequency, urgency, nocturia, or penile discharge. The patient is not currently sexually active. Prior to this episode of hematuria, the patient notes that he had several beers. He denies any trauma or straining prior to this episode. The patient strongly desires to avoid a cystoscopy at this time. MEDICATIONS Reviewed, no changes per EMR ALLERGIES Reviewed, no changes per EMR SYSTEMS REVIEW Systems reviewed unchanged. VITAL SIGNS TEMPERATURE: 36.6 DegC PERIPHERAL PULSE RATE: 52 /min BLOOD PRESSURE: 112/70 mmHg PHYSICAL EXAMINATION GENERAL: The patient is well nourished, well developed, and in no apparent distress. There are no communication barriers. He is alert and oriented X3. HEAD: No abnormalities of appearance. No facial abnormalities. LUNGS: Normal respiratory movements. No shortness of breath. SKIN: No peripheral cyanosis or edema. ENT: No neck masses. THYROID: No thyromegaly. HEART: Regular, rate, and rhythm. Abdominal aorta is not palpable. Femoral pulses are 2+ and equal bilaterally. No peripheral cyanosis or edema. ABDOMEN: Flat and nondistended. No guarding. No tenderness. No ascites. No hepatosplenomegaly. Kidneys are not palpable. Bladder size is normal. There are no ventral hernias. There are no inguinal hernias. GENITALIA: Penis: No discharge, no masses, and no plaques. Meatus is normally located on the glans penis, there is no meatal scarring and it is of normal size. There are two urethral openings within 1 meatus. The dorsal urethral looks to be approximately 1 mm wide, whereas the ventral urethra is normal caliber. Penis is circumcised. Scrotum: No rashes. No hydroceles or spermatoceles are present. No palpable varicocele is noted. Testes: Both testes are descended. They are without masses or tenderness. Each testis is of normal size and consistency. Epididymides: each epididymis is of normal size, without masses, without tenderness or signs of epididymitis. Both the right and left vas deferens are palpable. Perineum: Unremarkable. There are no obvious skin tags, condylomata or other lesions. SPINE: No spinal tenderness. No costovertebral angle tenderness. DIAGNOSTIC ELECTRONIC UROFLOW WITH BLADDER SCAN The patient was asked to present with a full bladder. He was standing for the uroflow. He voided a total of 286 mL. His peak flow rate was 18 mL/sec with an average flow rate of 13 mL/sec. The shape ofhis voiding curve was normal. The patients total voiding time was 22 seconds. Following completion of micturition a post-void residual was determined by bladder scan. His post-void residual was *0 mL. IMPRESSION / REPORT / PLAN 1. Possible episode of gross hematuria. 2. Accessory urethra. 3. Anxiety. 4. Evidence of prior left orchiopexy PLAN: An aliquot of urine was collected today which will be sent for urine cytology and urinalysis. This is to be repeated again in 4 weeks. The patient is to return for a follow-up appointment in 8 weeks tomonitor his progress. This document serves as a record of services personally performed by Dr. Ramírez Wood. It was created on his behalf by Tacho Barnes, a trained biomedical specialist. The creation of this record is based on the scribe's personal observations and the provider's statements to him. This document has been checked and approved by the attending provider. Ramírez Wood M.D./edy Electronically Signed By: RAMÍREZ WOOD MD On: 04/24/2013 03:45 PM Source: [facility] MHSDOLBEYNONRADSYS Document Id: [id number] COVERER MACHINE OPERATOR documented in this encounter Miscellaneous Notes Miscellaneous - Hiram Currie L.P.N. - 04/29/2013 5:01 PM CST Radiology Scheduling Questionnaire Radiology Scheduling Questionnaire Entered On: 04/29/2013 17:02 HEEL COVERER MACHINE OPERATOR Performed On: 04/29/2013 17:01 HEEL COVERER MACHINE OPERATOR by HIRAM CURRIE Radiology Scheduling Questionnaire Rad/Relevan Medications Grid Amiodarone : No Avandamet : No Glucophage : No Glucovance : No Metaglip : No Metformin : No Coumadin (warfarin) : No Plavix (clopidogrel) : No HIRAM CURRIE - 04/29/2013 17:01 HEEL COVERER MACHINE OPERATOR Rad/Iodinated Contrast Risk Grid Asthma : No CHF : No Chronic Renal Failure : No Diabetes : No Dialysis : No Dyspnea : No Emphysema/COPD : No Gout : No Hay Fever : No Iodine Allergy : No Multiple Myeloma : No One Kidney : No : No Previous SD : No HIRAM CURRIE - 04/29/2013 17:01 HEEL COVERER MACHINE OPERATOR Previous Films : Yes Location of Films : [place] Previous Films Requested Today : Yes HIRAM CURRIE - 04/29/2013 17:01 HEEL COVERER MACHINE OPERATOR Source: [facility] POWERCHART Document Id: [id number] HEEL COVERER MACHINE OPERATOR!29 COVERER MACHINE OPERATOR Telephone Encounter - Hiram Currie L.P.N. - 04/29/2013 3:40 PM CST Phone Message Document Contains Addenda Addendum by HIRAM CURRIE on 30 April 2013 15:53:28 HEEL COVERER MACHINE OPERATOR Patient contacted by phone. Patient states that he was not feeling well today and was unable to come in for an appointment. Patient will be scheduled for a Ct Urogram and a follow up appointment. Addendum by HIRAM CURRIE on 29 April 2013 17:20:04 HEEL COVERER MACHINE OPERATOR Patient contacted and will phone in the a.m. to arrange an appointment . Addendum by RAMÍREZ WOOD MD on 29 April 2013 16:09:10 HEEL COVERER MACHINE OPERATOR From: RAMÍREZ WOOD MD To: Urology Nurse; Sent: 04/29/2013 16:09:10 HEEL COVERER MACHINE OPERATOR Subject: RE: Phone Message With the bleeding he will need a cytology, CT Urogram and cystoscopy. I doubt he would tolerate an office cystoscopy, but would defer that question to the patient. So RTC tomorrow to see Anna Agudelo PA-C, then arrange tests. From: HIRAM CURRIE ( Urology Nurse) To: RAMÍREZ WOOD MD; Sent: 04/29/2013 15:40:56 HEEL COVERER MACHINE OPERATOR Subject: Phone Message Caller is: ( x ) Patient ( ) Mother ( ) Father ( ) Spouse ( ) Daughter ( ) Son ( ) Pharmacy ( ) Other: Physician: Ramírez Wood Patient Reason for Call: Urinary symptoms worse Message:Patient phones stating that this morning, when he first got out of bed, he again had a difficult time starting to urinate . Patient states that he had to strain and then he sprayed urine with dysuria. After that occured andhe voided again and the dysuria improved and his bladder felt empty. Patient states after the stream was completed a large amount of dark red blood was noted. Patient states his follow up appointment is in June but questions what he should be doing now since the bleeding noted has increased. Please advise. Advice/Action: Source used: ( ) Verbalizes understanding [...] back cell phone number ( ) Source: [facility] POWERCHART Document Id: [id number] Electronically signed by Herrera, [facility] Youth Corrections Officer [id number] at 08/01/2016 10:27 PM CDT Miscellaneous - Anna Agudelo P.A.-C. - 04/25/2013 2:14 PM CST Normal Results Letter 25 April 2013 ALEJANDRA ADHIKARI [address] [address] Dear ALEJANDRA ADHIKARI, I am pleased to report that your results from the following diagnostic test(s) are normal. The urinecytology looks for any abnormal cells in the urine. Your cytology was negative for any abnormal cells. Please follow up with us as we discussed during your visit or sooner if you have any concerns. If you have questions or concerns, please do not hesitate to call our office. Result Name Current Result Non-PROCESSING ENGINEER Cytology 04/24/2013 Sincerely, ANNA AGUDELO [address] [place], [place] [address] [address] Electronic Signature Electronically Signed By: ANNA AGUDELO [facility] On: 25 April 2013 This document has images extracted. Source: [facility] Teranetics Document Id: [id number] Electronically signed by Conversion, [facility] Youth Corrections Officer [id number] at 08/01/2016 10:27 PM CDT Miscellaneous - Anna Agudelo, P.A.-C. - 04/24/2013 5:10 PM CST Normal Results Letter 24 April 2013 ALEJANDRA ADHIKARI [address] [address] Dear ALEJANDRA ADHIKARI, I am pleased to report that your results from the following diagnostic test(s) are normal. Please follow up with us as we discussed during your visit or sooner if you have any concerns. If you have questions or concerns, please do not hesitate to call our office. Result Name Current Result Normal Range UA Source. 04/24/2013 UA Color STRAW 04/24/2013 UA Glucose Negative 04/24/2013 Negative - UA Bili Negative 04/24/2013 Negative - UA Ketones Negative 04/24/2013 Negative - UA Spec Grav 1.010 04/24/2013 >=1.030 - UA pH 6.5 04/24/2013 8.5 - UA Protein Negative 04/24/2013 Negative - UA Urobilinogen 0.2 04/24/2013 1.0 - UA Nitrite Negative 04/24/2013 Negative - UA Blood Negative 04/24/2013 Negative - UA Leuk Est Negative 04/24/2013 Negative - UA WBC 1-3 04/24/2013 UA RBC 0-2 04/24/2013 0-2 - UA Bacteria (*) Few 04/24/2013 Negative - UA Epi Few 04/24/2013 Negative - Sincerely, ANNA AGUDELO [address] [place] [address] Electronic Signature Electronically Signed By: ANNA AGUDELO On: 24 April 2013 This document has images extracted. Source: [facility] POWERCHART Document Id: [id number] Electronically signed by Conversion, [facility] Youth Corrections Officer [id number] at 08/01/2016 10:27 PM CDT Miscellaneous - Ramírez Wood M.D. - 04/24/2013 1:00 PM CST Results Notification Document Contains Addenda Addendum by ANNA AGUDELO on 24 April 2013 17:11:07 HEEL COVERER MACHINE OPERATOR Letter sent. From: RAMÍREZ WOOD MD Sent: 04/24/2013 13:00:25 HEEL COVERER MACHINE OPERATOR ! Show up: 04/24/2013 13:00:25 HEEL COVERER MACHINE OPERATOR Subject: Results Notification Actions: Notify patient of results Reminder Comments: UA is normal Results: Date Result Name Ind Value Ref Range 04/24/2013 12:43 UA Color STRAW 04/24/2013 12:43 UA Spec Grav 1.010 (>=1.030 - ) 04/24/2013 12:43 UA pH 6.5 (8.5 - ) 04/24/2013 12:43 UA Protein Negative (Negative - ) 04/24/2013 12:43 UA Glucose Negative (Negative - ) 04/24/2013 12:43 UA Ketones Negative (Negative - ) 04/24/2013 12:43 UA Bili Negative (Negative - ) 04/24/2013 12:43 UA Urobilinogen 0.2 (1.0 - ) 04/24/2013 12:43 UA Blood Negative (Negative - ) 04/24/2013 12:43 UA Nitrite Negative (Negative - ) 04/24/2013 12:43 UA Leuk Est Negative (Negative - ) 04/24/2013 12:43 UA WBC 1-3 04/24/2013 12:43 UA RBC 0-2 (0-2 - ) 04/24/2013 12:43 UA Bacteria (*) Few (Negative - ) 04/24/2013 12:43 UA Epi Few (Negative - ) Source: [facility] POWERCHART Document Id: [id number] Miscellaneous - Ramírez Wood M.D. - 04/24/2013 11:48 AM CST Ambulatory Patient Summary [facility] [address] [place] [id number] Visit Information Name: LYLEALEJANDRA [facility] Number: [id number] Current Date: 04/24/2013 11:48:26 Physicians Attending Provider: RAMÍREZ WOOD MD Primary Care Provider: FEDERICO CHO MD ALEJANDRA ADHIKARI JUAN MANUEL has been given the following list of [...] Tablet(s), Oral, two times a day anxiety buprenorphine-naloxone (Suboxone 8 mg-2 mg sublingual film) 1 Each, Sublingual, two times a day For addiction (dissolve under the tongue) clonazePAM (Klonopin 2 mg oral tablet) 1 Tablet(s), Oral, two times a day Anxiety dextroamphetamine-amphetamine (Adderall XR 25 mg oral capsule, extended release) 1 cap, Oral, once aday (in the morning) ADHD sertraline (sertraline 100 mg oral tablet) 1.5 Tablet(s), Oral, once a day anxiety, depression Stop Taking the Following Medications: Medication list as of 04-24-13 11:48 Attention: If you have any medications at [...] appointment detail needed. Your Goals/Additional instructions: Source: [facility] POWERCHART Document Id: [id number] COVERER MACHINE OPERATOR Miscellaneous - Ramírez Wood M.D. - 04/24/2013 11:48 AM CST Ambulatory Discharge Medication List [facility] [address] [place] [id number] Visit Information Name: ALEJANDRA ADHIKARI [facility] Number: [id number] Visit Date: 04/24/2013 11:48:25 Attending Provider: RAMÍREZ WOOD MD Primary Care Provider: FEDERICO CHO MD LYLE ALEJANDRA ZAMBRANO has been given [...] Tablet(s), Oral, two times a day anxiety buprenorphine-naloxone (Suboxone 8 mg-2 mg sublingual film) 1 Each, Sublingual, two times a day For addiction (dissolve under the tongue) clonazePAM (Klonopin 2 mg oral tablet) 1 Tablet(s), Oral, two times a day Anxiety dextroamphetamine-amphetamine (Adderall XR 25 mg oral capsule, extended release) 1 cap, Oral, once aday (in the morning) ADHD sertraline (sertraline 100 mg oral tablet) 1.5 Tablet(s), Oral, once a day anxiety, depression Stop Taking the Following Medications: Medication list as of 04-24-13 11:48 Attention: If you have any medications at home that are not on this list, DO NOT take them until youcontact your provider for clarification. Give a copy of your medication list to your primary care provider. Update your medication list any time medications or doses are changed and carry your medication list at all times in case of emergency. Additional Information: Source: [facility] POWERCHART Document Id: [id number] COVERER MACHINE OPERATOR Miscellaneous - Hiram Currie L.P.N. 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 morning the worse. Stream burning sensation, urine dark, and spays with small amount of blood. Ambulatory Intake Additional Information : Had a cysto at [facility] in 2008 , felt that he has not urinated right since then. Temperature Core : 37.2 DegC(Converted to: 99.0 DegF) Peripheral Pulse Rate : 72 /min Heart Rhythm : Regular Systolic Blood Pressure : 102 mmHg Diastolic Blood Pressure : 60 mmHg NIBP Mean : 74 mmHg BP Location : Right upper extremity Blood Pressure Cuff Size : Regular HIRAM CURRIE - 04/24/2013 11:08 HEEL COVERER MACHINE OPERATOR General Info Information Given By : Patient Preferred Communication Mode : Verbal Languages : Nigerian HIRAM CURRIE 04/24/2013 11:08 HEEL COVERER MACHINE OPERATOR Subjective Pain Symptoms : No HIRAM CURRIE 04/24/2013 11:08 HEEL COVERER MACHINE OPERATOR Dependent Habits Tobacco Use/Currently Using : Yes Exposure to Tobacco Smoke : Patient smokes Smoking Status : Current some day smoker HIRAM CURRIE 04/24/2013 11:08 HEEL COVERER MACHINE OPERATOR Tobacco Use Grid Type : Cigarettes Cigarette Use Packs/Day : 0.5 HIRAM CURRIE 04/24/2013 11:08 HEEL COVERER MACHINE OPERATOR Alcohol Use : Yes HIRAM CURRIE - 04/24/2013 11:08 HEEL COVERER MACHINE OPERATOR Caffeine Use Grid Caffeine Use : None HIRAM CURRIE - 04/24/2013 11:08 HEEL COVERER MACHINE OPERATOR Recreational Drug Use Grid Drug Use : None HIRAM CURRIE - 04/24/2013 11:08 HEEL COVERER MACHINE OPERATOR Source: [facility] POWERCHART Document Id: [id number] HEEL COVERER MACHINE OPERATOR!33 COVERER MACHINE OPERATOR documented in this encounter Plan of Treatment Not on filedocumented as of this encounter Procedures Procedure Name Priority Date/Time Associated Comments Diagnosis URINALYSIS WITH Routine 04/24/2013 12:43 Results for this MICROSCOPIC PM HEEL COVERER MACHINE OPERATOR procedure are i n the results section. ZZPATHOLOGY NON-PROCESSING ENGINEER Routine 04/24/2013 11:09 Resu lts for this CYTOLOGY AM HEEL COVERER MACHINE OPERATOR procedure are i n the results section. documented in this encounter Results (ABNORMAL) Urinalysis, Complete, Includes Microscopic (04/24/2013 12:43 PM HEEL COVERER MACHINE OPERATOR) [facility] gist Method Time Signature Source Clean Void POWERCHART Urine HXUr Color STRAW POWERCHART Glucose Negative Negative POWERCHART HXBILIRUBIN Negative Negative POWERCHART Ketones, QL(U) Negative Negative POWERCHART Specific 1.010 >=1.030 POWERCHART [place], POCT, U pH, POCT, Urine 6.5 8.5 POWERCHART Protein, Ur, Dip Negative Negative POWERCHART Urobilinogen 0.2 1.0 POWERCHART HXNITRITE Negative Negative POWERCHART HXBLOOD Negative Negative POWERCHART Leukocyte Negative Negative POWERCHART Esterase HXUr WBC 1-3 POWERCHART Red Blood Cell 0-2 0 - 2 POWERCHART Clump, Urine HXUr Bacteria Few (A) Negative POWERCHART HXUr Epithelial Few Negative POWERCHART Specimen (Source) Anatomical Collection Method Collection Time Re ceived Time Location / / Volume Laterality Urine 04/24/2013 12:43 PM HEEL COVERER MACHINE OPERATOR Ramírez Wood M.D. LAB URINE ORDERABLES Performing Organization Address City/State/ZIP Code Phon e Number POWERCHART ZZPATHOLOGY NON-PROCESSING ENGINEER CYTOLOGY (04/24/2013 11:09 AM HEEL COVERER MACHINE OPERATOR) Specimen (Source) Anatomical Collection Method Collection Time Re ceived Time Location / / Volume Laterality 04/24/2013 11:09 AM HEEL COVERER MACHINE OPERATOR Narrative [facility] - 04/25/2013 1:03 PM HEEL COVERER MACHINE OPERATOR [facility] [place] [address] [place], [place] ??[address] Patient Name: ALEJANDRA ADHIKARI Patient ID #: [id number] Collected: 04/24/2013 Address: City/State/Zip: [address] [place] [phone] Received: Reported: 04/25/2013 04/25/2013 Soc. Sec. #: ?/Age/Sex 1985 (Age: 27) ??M Physician(s): A FILIPPO Copy To: ? [facility] ?? [id number] [address] [facility], ??[place] ??[address] CYTOPATHOLOGY NON-PROCESSING ENGINEER REPORT FINAL CYTOLOGIC DIAGNOSIS Urine: NEGATIVE FOR MALIGNANCY SATISFACTORY SPECIMEN FOR EVALUATION. Electronically Signed By ddg/04/25/2013 SOLIS BARROS M.D. [facility](ASCP) SPECIMEN(S) RECEIVED: Urine CLINICAL HISTORY: GROSS HEMATURIA GROSS DESCRIPTION: 2 CYTOSPINS PREPARED FROM 70 ML FIXED YE LLOW FLUID. Ramírez Wood M.D. LAB PATHOLOGY/CYTOLOGY ORDER MARIA C Performing Organization Address City/[facility]/ZIP Code Phon e Number [facility] documented in this encounter Visit Diagnoses Not on filedocumented in this encounter Additional Health Concerns Assessment Noted Time PHQ-9 Depression Total Score: 7 01/14/2013 4:05 PM HEEL COVERER MACHINE OPERATOR documented as of this encounter
--- OUTSIDE RECORDS SUMMARY | 2022-02-10 14:42 | XMS_ITS | Encounter Summary ---
:1985 [facility] Address [address] [place] [address] Care Team Providers Name Role Phone Unavailable Primary Care Provider Unavailable Encounter Details Date Type Department Care Team Description 01/22/2013 Hospital Encounter HX [facility] Niecy Felder M.D. [address], [address] [address] (Wo rk) Social History Tobacco Use [...] encounter Progress Notes Carmela Felder M.D. - 01/22/2013 8:25 AM CST [id number] CHIEF COMPLAINT/REASON FOR VISIT Seborrheic dermatitis. HISTORY OF PRESENT ILLNESS This 27-year-old male is here with recheck of his seborrheic dermatitis. He never did get any medications filled from his last visit, so now he is just using Cetaphil cleanser and Vanicream moisturizer, which he says is doing fairly well. His seborrhea has flared since he stopped tanning about a monthago. He says that he does not want to galicia anymore because of the skin for skin cancer. PHYSICAL EXAMINATION Exam of face shows erythema and yellow scale on the forehead, sides of the nose, and in the finney area, and a little bit on the top of his head. IMPRESSION/REPORT/PLAN Seborrheic dermatitis. PLAN: We talked about treatment options and decided to use ketoconazole cream after he washes with Cetaphil cleanser, or I also gave him a prescription for sulfacetamide sodium 10% soap to wash his face once or twice a day. He will experiment with these and see what works best for him and follow up in3 months. He may use [id number] hydrocortisone as needed for redness. Carmela Felder M.D./bryan Electronically Signed By: CARMELA FELDER MD On: 01/30/2013 09:03 PM Source: [facility] MHSDOLBEYNONRADSYS Document Id: [id number] ROAD CAR CHECKER documented in this encounter Miscellaneous Notes Miscellaneous - Carmela Felder M.D. - 01/27/2013 1:22 PM CST Ambulatory Patient Summary [address] [address] Visit Information Name: [facility] Number: [id number] Current Date: 01/27/2013 13:22:05 Physicians Attending Provider: CARMELA FELDER MD; CARMELA FELDER MD Primary Care Provider: FEDERICO CHO MD ALEJADNRA ADHIKARI has been given the following list [...] medications. Medication/Strength Dose Route Frequency Indications/Special Instructions/Comments/Notes sodium sulfacetamide topical (sulfacetamide sodium 10% topical soap) 1 sadia Topical two times a day wash face gently once or twice a day. ketoconazole topical (ketoconazole 2% topical cream) 1 sadia Topical once a day clonazePAM (Klonopin 2 mg oral tablet) 2 [...] once a day (in the morning) ADHD sertraline (sertraline 100 mg oral tablet) 150 mg Oral once a day anxiety, depression buprenorphine-naloxone (Suboxone 8 mg-2 mg sublingual film) [...] Upcoming Appointments Date Time Location Reason Provider 01/29/2013 16:00 [facility] Urology problems with flow while urinating/ pt was asked to come with full bladder SeegmAnastasiya nash PA-C 04/26/2013 14:15 [facility] Derm rck seborrhea [facility] PERALTA, Carmela Dove Attention: Contact your local Clinic if further appointment detail needed. Your Goals/Additional instructions: Source: [facility] POWERCHART Document Id: [id number] ROAD CAR CHECKER Miscellaneous - Carmela Felder M.D. - 01/27/2013 1:22 PM CST Ambulatory Depart Summary [facility] [address] [address] Visit Information Name: [facility]JANDRA [facility] Number: [id number] Visit Date: 01/27/2013 13:22:04 Attending Provider: CARMELA FELDER MD; CARMELA FELDER MD Primary Care Provider: FEDERICO CHO MD ALEJANDRA ADHIKARI has been given the following list of medications: Your Medications It is important to take your medications as directed. Use a pill box or chart to help remind you to take your medications. Please let your doctor or nurse know if you have problems taking your medications. Medication/Strength Dose Route Frequency Indications/Special Instructions/Comments/Notes sodium sulfacetamide topical (sulfacetamide sodium 10% topical soap) 1 sadia Topical two times a day wash face gently once or twice a day. ketoconazole topical (ketoconazole 2% topical cream) 1 saida Topical once a day clonazePAM (Klonopin 2 mg oral tablet) 2 [...] once a day (in the morning) ADHD sertraline (sertraline 100 mg oral tablet) 150 mg Oral once a day anxiety, depression buprenorphine-naloxone (Suboxone 8 mg-2 mg sublingual film) 1 each Sublingual two times a day For addiction (dissolve under the tongue) ondansetron (Zofran 4 mg oral tablet) 4 mg Oral every 8 hours as needed for Nausea Attention: If you have any medications at home that are not on this list, DO NOT take them until youcontact your provider for clarification. 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/History Entered On: 01/22/2013 8:47 RAILRO[address] CAR CHECKER Performed On: 01/22/2013 8:47 RAILROAD CAR CHECKER by ANDI VAZQUEZ Intake Chief Complaint : f/u seborrheic dermatitis JOSHANDI 01/22/2013 8:47 RAILRO[address] CAR CHECKER General Info Information Given By : Patient Languages : Syriac JOSH ANDI Cancino 01/22/2013 8:47 RAILROAD CAR CHECKER Subjective Pain Symptoms : No ANDI VAZQUEZ 01/22/2013 8:47 RAILRO[address] CAR CHECKER Dependent Habits Tobacco Use/Currently Using : Yes Exposure to Tobacco Smoke : Patient smokes Smoking Status : Current every day smoker ANDI VAZQUEZ 01/22/2013 8:47 RAILRO[address] CAR CHECKER Tobacco Use Grid Type : Cigarettes Cigarette Use Packs/Day : 1.0 ANDI VAZQUEZ 01/22/2013 8:47 RAILRO[address] CAR CHECKER Caffeine Use Grid Caffeine Use : Current Type : Soft drinks Frequency : Daily Amount : 3 cans daily ANDI VAZQUEZ 01/22/2013 8:47 RAILROAD CAR CHECKER Recreational Drug Use Grid Drug Use : None ANDI VAZQUEZ 01/22/2013 8:47 RAILROAD CAR CHECKER [facility] Document Id: [id number] RAILROAD CAR CHECKER![address] RO[address] CAR CHECKER documented in this encounter Plan of Treatment Not on filedocumented as of this encounter Visit Diagnoses Not on filedocumented in this encounter Additional Health Concerns Assessment Noted Time PHQ-9 Depression Total Score: 7 01/14/2013 4:05 PM RAILRO[address] CAR CHECKER documented as of this encounter
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
--- OUTSIDE RECORDS SUMMARY | 2022-02-10 14:42 | XMS_ITS | Encounter Summary ---
:1985 [facility] Address [address] [place] [address] Care Team Providers Name Role Phone Unavailable Primary Care Provider Unavailable Encounter Details Date Type Department Care Team Description 12/02/2013 Hospital Encounter [facility]X [facility] Tania Franklin M.D. Social History Tobacco Use Types Packs/Day Years Used Date Smoking Tobacco: Never Assessed Sex Assigned at Date Recorded Male 10/17/2017 10:58 AM CDT documented as of this encounter Last Filed Vital Signs Vital Sign Reading Time Taken Comments Blood Pressure 109/55 12/02/2013 4:24 PM CDT Pulse 78 12/02/2013 4:24 PM CDT Temperature - - Respiratory Rate 16 12/02/2013 4:24 PM CDT Oxygen Saturation - - Inhaled Oxygen Concentration - - Weight 61.7 kg (136 lb 0.4 oz) 12/02/2013 4:24 PM CDT Height 166 cm (5' 5.35) 12/02/2013 3:43 PM CDT Body Mass Index 22.39 12/02/2013 3:43 PM CDT documented in this encounter Medications [...] encounter Progress Notes Riri Andino M.D. - 12/02/2013 3:43 PM CDT [id number] CHIEF COMPLAINT/REASON FOR VISIT ADHD. Generalized anxiety disorder. Carpal tunnel symptoms. HISTORY OF PRESENT ILLNESS This 27-year-old white male is in for a followup and refill on his medications. He states that it has really been difficult recently and his close friend just recently of a heroin overdose. He didtalk to this person almost daily but states that he really did not get together with him, because hewas not clean. He now feels that he has no friends and limited support from his family. He also had problems with his job and that he may just over what social security would allow. But, his job is also temporary and is not certain that he is going to be able to find adequate employment to live independently at this point. He has decided to try and go back to school and has enrolled to start next quarter basically getting his basic classes. MEDICATIONS We reviewed his medications and he admits that he would like to try and get off as many as possible.He agrees to make an attempt at decreasing the use of the Xanax. Second issues that over 6 months now, he has had a carpal tunnel type symptoms in his right hand with numbness and tingling, and at times, kind of pain going up the arm. He wakes up with numb and has to shake it frequently. He has not tried wearing a brace. It also gets numb and painful with many daily activities. EMR reviewed. No change. VITAL SIGNS Reviewed. No change. PHYSICAL EXAMINATION GENERAL: Well-developed male, in no acute distress. NEUROLOGICAL: He has a positive Phalen on the right, and slightly positive Tinel's on the right. Strength and sensation intact. MENTAL HEALTH: He is alert, oriented, and appropriate, but somewhat tearful today. IMPRESSION/REPORT/PLAN 1. Probable right carpal tunnel. PLAN: I encouraged him to use a splint at night, but I also like to get him scheduled for an electromyography with orthopedic consultation if that does show carpal tunnel. 2. Attention deficit hyperactivity disorder. PLAN: Continue on his current dose of Adderall. We will need to reassess once he is back in school to see if he is able to concentrate adequately for both class and homework. 3. Generalized anxiety disorder with depression. PLAN: Decreased his Xanax to 0.5 mg tablet, but did allow him to take up to 3 a day. Discussed that really over the next 3 months, we should get him off the Xanax completely and just have him use the clonazepam, and he is in agreement with trying that. Urged him also to increase his Zoloft to 200 mg aday with a follow up in 3 months to reassess. Also, we will review with him that he has made very positive strides in his life and that he has managed to stay clean. He is working on future goals and encouraged him to focus more on the positive parts of his life and just work on forgiving himself for the poor choices he made previously. He continues to decline any type of counseling really feeling that would not be helpful for him. Thirty minutes was spent with the patient in assessment and counseling. Riri Franklin M.D./dale Electronically Signed By: RIRI FRANKLIN MD On: 12/07/2013 10:07 PM Source: [facility] MHSDOLBEYNONRADSYS Document Id: [id number] documented in this encounter Miscellaneous Notes Miscellaneous - Freda Navarro, LGermanPGermanN. - 02/25/2014 2:40 PM CST Med Management Document Contains Addenda Addendum by ABDIEL MONTES MD on 25 February 2014 15:48:31 HVAC ESTIMATOR From: ABDIEL MONTES MD To: ANISHA Power Nurse; Sent: 02/25/2014 15:48:31 HVAC ESTIMATOR Subject: RE: Med Management Please call/fax in. Abdiel Addendum by ABDIEL MONTES MD on 25 February 2014 15:48:19 HVAC ESTIMATOR Approved with modifications: Order:clonazePAM (Klonopin 2 mg oral tablet) 1 tab(s) PO 2xDay Anxiety Qty: 60 tab(s) Refills: 0 Print - [id number] Signed by ABDIEL MONTES MD 02/25/2014 15:47:58 From: FREDA NAVARRO LPN (ANISHA Power Nurse) To: ABDIEL MONTES MD; Sent: 02/25/2014 14:40:14 HVAC ESTIMATOR Subject: Med Management On hold pending signature Order:clonazePAM (Klonopin 2 mg oral tablet) 1 tab(s) PO 2xDay Anxiety Qty: 180 tab(s) Refills: 0 Print - [id number] Caller is: ( ) Patient ( ) Mother ( ) Father ( ) Spouse ( ) Daughter ( ) Son ( x ) Pharmacy ( ) Other: Provider: Dr. 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 Patient informed me that he is leaving out of town tomorrow for the holiday Pharmacist states will contact insurance company to see if override can be done Will call us back if any concerns/ problems From: ARACELI STARR ([address] Guide Changer) To: ANISHA REEDinfection control preventionist [facility]; Sent: 01/27/2014 17:00:37 HVAC ESTIMATOR Subject: *Phone Message Caller is: (x ) Patient ( ) Mother ( ) Father ( ) Spouse ( ) Daughter ( ) Son ( ) Pharmacy ( ) Other: Physician: Paulina Franklin Patient MRN #: Reason for Call: Message: s patient calling to speak to nurse b patient called Mariza in [facility] to have a medication refilled said it ws to early to fill a r call Alejandra vinson at [phone] Advice/Action: Source used: ( ) Verbalizes understanding [...] back cell phone number ( ) Source: [facility] [employer] Document Id: [id number] Miscellaneous - Riri Andino M.D. - 12/02/2013 5:18 PM CDT Ambulatory Patient Summary [facility] [address] [place] [id number] Visit Information Name[facility] Number: [id number] Current Date: 12/02/2013 17:18:08 Physicians Attending Provider: RIRI FRANKLIN MD Primary Care Provider: RIRI FRANKLIN MD ALEJANDRA ADHIKARI has been given [...] times a day as needed for Anxiety This is a CHANGE Routed to [facility] buprenorphine-naloxone (Suboxone 8 mg-2 [...] nasal (Nasonex 50 mcg/inh nasal spray) 2 [place](s), Nostrils(Both), once a day sertraline (Zoloft 100 mg oral tablet) 2 Tablet(s), Oral, once a day anxiety This is a CHANGE [facility] [address] Stop Taking the Following Medications: Medication list as of 12-02-13 17:18 Attention: If you have any medications at [...] Electronically Signed By: RIRI FRANKLIN MD Signed On:02-DEC-2013 17:17:55 Your Allergies & Intolerances Substance Reaction Symptoms [...] appointment detail needed. Your Goals/Additional instructions: Source: [facility] POWERCHART Document Id: [id number] Miscellaneous - Riri Andino M.D. - 12/02/2013 5:18 PM CDT Ambulatory Discharge Medication List [facility] [address] [place] [id number] Visit Information [facility] Number: [id number] Visit Date: 12/02/2013 17:18:06 Attending Provider: RIRI FRANKLIN MD Primary Care Provider: RIRI FRANKLIN MD ALEJANDRA ADHIKARI has been given [...] times a day as needed for Anxiety This is a CHANGE Routed to [facility] buprenorphine-naloxone (Suboxone 8 mg-2 [...] nasal (Nasonex 50 mcg/inh nasal spray) 2 [place](s), Nostrils(Both), once a day sertraline (Zoloft 100 mg oral tablet) 2 Tablet(s), Oral, once a day anxiety This is a CHANGE [facility] [address] [place] [address] Stop Taking the Following Medications: Medication list as of 12-02-13 17:18 Attention: If you have any medications at [...] Electronically Signed By: RIRI FRANKLIN MD Signed On:02-DEC-2013 17:17:55 Additional Information: Source: [facility] [employer] Document Id: [id number] Miscellaneous - Conversion, Historical Provider Ser - 12/02/2013 4:24 PM CDT Adult Federal Mediator Intake/History Adult Federal Mediator Intake/History Entered On: 12/02/2013 16:25 CDT Performed On: 12/02/2013 16:24 CDT by IVELISSE CABRAL Intake Chief Complaint : Meds 3 month Follow up , carpal tunnel symptoms Temperature Oral : 36.5 DegC(Converted to: 97.7 DegF) Peripheral Pulse Rate : 78 /min Respiratory Rate : 16 /min Heart Rhythm : Regular Systolic Blood Pressure : 109 mmHg Diastolic Blood Pressure : 55 mmHg NIBP Mean : 73 mmHg BP Location : Right upper extremity Blood Pressure Cuff Size : Large Actual Weight : 61.7 kg(Converted to: 136 lb 0 oz) Weight Source : Standing scale Dosing Weight Clinic : 61.7 kg IVELISSE CABRAL - 12/02/2013 16:24 CDT General Info Information Given By : Patient Languages : Tamazight Is Patient Female and 13-50 no hysterectomy : No IVELISSE CABRAL 12/02/2013 16:24 CDT Subjective Pain Symptoms : No IVELISSE CABRAL 12/02/2013 16:24 CDT Dependent Habits Tobacco Use/Currently Using : Yes Exposure to Tobacco Smoke : Patient smokes Smoking Status : Current every day smoker IVELISSE CABRAL 12/02/2013 16:24 CDT Tobacco Use Grid Type : Cigarettes Cigarette Use Packs/Day : 0.5 IVELISSE CABRAL 12/02/2013 16:24 CDT Caffeine Use Grid Caffeine Use : None IVELISSE CABRAL 12/02/2013 16:24 CDT Recreational Drug Use Grid Drug Use : None IVELISSE CABRAL 12/02/2013 16:24 CDT [facility]: [facility] Document Id: [id number] CDT!35 documented in this encounter Plan of Treatment Not on filedocumented as of this encounter Visit Diagnoses Not on filedocumented in this encounter Additional Health Concerns Assessment Noted Time PHQ-9 Depression Total Score: 4 06/06/2013 6:12 PM CDT documented as of this encounter
--- OUTSIDE RECORDS SUMMARY | 2022-02-10 14:42 | XMS_ITS | Encounter Summary ---
:1985 Author Organization [facility] Address [address] [place] [address] Care Team Providers Name Role Phone Unavailable Primary Care Provider Unavailable Encounter Details Date Type Department Care Team Description 06/06/2013 Hospital Encounter [facility]X [facility] Tania Franklin M.D. Social History Tobacco Use Types Packs/Day Years Used Date Smoking Tobacco: Never Assessed Sex Assigned at Date Recorded Male 10/17/2017 10:58 AM CDT documented as of this encounter Last Filed Vital Signs Vital Sign Reading Time Taken Comments Blood Pressure 101/61 06/06/2013 2:42 PM CDT Pulse 81 06/06/2013 2:42 PM CDT Temperature - - Respiratory Rate 18 06/06/2013 2:42 PM CDT Oxygen Saturation - - Inhaled Oxygen Concentration - - Weight 65.8 kg (145 lb 1 oz) 06/06/2013 2:42 PM CDT Height - - Body Mass Index 23.88 01/14/2013 4:02 PM SATURATOR OPERATOR documented in this encounter Medications at Time of Discharge Medication Sig Dispensed Refills Start Date End Date clonazePAM (KlonoPIN) 2 Twice A Day 0 08/27/2010 mg tablet buprenorphine-naloxone Place 1 Dose under 0 11/0911/04/2019 (SUBOXONE) 8-2 mg per SL the tongue 2 (two) film times a day. documented as of this encounter Progress Notes Federico Andino M.D. - 06/06/2013 2:34 PM CDT [id number] CHIEF COMPLAINT/REASON FOR VISIT Med check HISTORY OF PRESENT ILLNESS Alejandra is a 27-year-old male presenting today to discuss his medications. He has become quite frustrated with the physician providing him Suboxone and was questioning whether I would be able to do that for him. I explained to Alejandra that it requires a license that I do not have and can do nothing for him in relation to this. I strongly encouraged him to continue to work with his current provider since most of the folks doing this have a full practice. In terms of his life, he has been working and is In terms of his anxiety, he feels he has been doing well and stopped his Zoloft. He has never reallyfelt that the Zoloft has done much for him and feels the Klonopin and Xanax work the best. I again reviewed the fact that my goal is to get him off the Xanax or at least using it on a very episodic basis, and reminded him that on the SSRI he has done well in terms of not needing emergency room visits,and he has also had good improvement in his headaches and chest pain issues that were previously bothering him. He continues to be troubled with anger outbursts and again discussed that the SSRIs are probably more helpful for that than the benzodiazepines, and that he really needs to perhaps again get some counseling to help with anger management so he can deal with it more effectively and keep himself out of trouble. After a lengthy discussion, I elected, since he has been off his Zoloft for over a week, to try switching him to Lexapro 10mg daily to see if he finds that better tolerated. His big issue with the Zoloft is that he feels terrible if he doesnt take it for a day, and now that he is off of it does reallynot want to resume it. However, he admits he is worried about changing to a new drug, and we agreed that if he does not seem to be tolerating the Lexapro he can always resume the Zoloft. I did agree to continue him on his current dose of his Klonopin and Xanax, since we are in the midstof changing drugs. But if he is truly motivated to get off the medications, his Xanax is the first one that needs to go and we need to continue trying to adjust his SSRIs. MEDICATIONS Reviewed and updated in the EMR dated 06/06/13 ALLERGIES Reviewed and updated in the EMR dated 06/06/13 VITAL SIGNS WEIGHT: 65.8 kg TEMP: 36.4 DegC PULSE: 81 /min RESP RATE: 18 /min SYSTOLIC: 101 mmHg DIASTOLIC: 61 mmHg PHYSICAL EXAMINATION GENERAL: Well-developed male in no acute distress. MENTAL STATUS: PHQ9 score of 4. IMPRESSION/REPORT/PLAN 1. Chronic anxiety Plan: After a lengthy discussion, I elected, since he has been off his Zoloft for over a week, to try switching him to Lexapro 10mg daily to see if he finds that better tolerated. I also did elect to refill 180 tablets of his Klonopin 2mg to take b.i.d. as well as his Xanax 1mg b.i.d. He will follow up in 6-8 weeks to see how he is doing on the Lexapro. 2. ADHD Plan: Continue on Adderall XR 25mg daily. He again is thinking about weaning off that, but I encouraged him to continue on it because I do feel it is helping him function. ADMINISTRATIVE BILLING Greater than half of this 30 minute visit was spent in counseling regarding all of the above. This document serves as a record of services personally performed by Dr. Federico Franklin. It was created on their behalf by Stephanie Solomon, a trained medical billing specialist. The creation of this record is based on the scribe's personal observations and the provider's statements to them. This document has been checked and approved by the attending provider. Federico Franklin M.D./ra[place]h Electronically Signed By: FEDERICO FRANKLIN MD On: 06/17/2013 09:44 PM Source: [facility] MHSDOLBEYNONRADSYS Document Id: [id number] documented in this encounter Miscellaneous Notes Miscellaneous - Conversion, Historical Provider Ser - 06/06/2013 6:12 PM CDT PHQ-9 PHQ-9 Entered On: 06/06/2013 18:13 CDT Performed On: 06/06/2013 18:12 CDT by IVELISSE CABRAL PHQ-9 Little interest or pleasure in doing things : Not at all Feeling down, depressed, or hopeless : Several days Trouble falling or staying asleep, or sleeping too much : Several days Feeling tired or having little energy : Several days Poor appetite or overeating : Not at all Feeling bad about yourself or that you are a failure : Not at all Trouble concentrating on things : Several days Moving or speaking slowly; restless or fidgety : Not at all Thoughts that you would be better off /hurting self : Not at all PHQ-9 Calculated Score : 4 Problems make work, home, or dealing with others : Somewhat difficult IVELISSE CABRAL - 06/06/2013 18:12 CDT Source: [employer] Document Id: [id number] CDT!13 Miscellaneous - Federico Andino M.D. - 06/06/2013 3:36 PM CDT Ambulatory Patient Summary [address] [id number] Visit Information Name: [facility] Number: [id number] Current Date: 06/06/2013 15:36:40 Physicians Attending Provider: FEDERICO FRANKLIN MD Primary [...] (in the morning) ADHD Routed to Printer escitalopram (Lexapro 10 mg oral tablet) 1 Tablet(s), Oral, once a day anxiety, depression New Routed to [facility] [address] [place] [address] Stop Taking the Following Medications: sertraline (sertraline 100 mg oral tablet) Medication list as of 06-06-13 15:36 Attention: If you have any medications at [...] appointment detail needed. Your Goals/Additional instructions: Source: [facility] POWERCHART Document Id: [id number] Miscellaneous - Federico Andino M.D. - 06/06/2013 3:36 PM CDT Ambulatory Discharge Medication List [facility] [address] [place] [id number] Visit Information Name: [facility] Number: [id number] Visit Date: 06/06/2013 15:36:38 Attending Provider: FEDERICO FRANKLIN MD Primary Care Provider: FEDERICO FRANKLIN MD ALEJANDRA ADHIKARI BLAZE has been given the following list of [...] (in the morning) ADHD Routed to Printer escitalopram (Lexapro 10 mg oral tablet) 1 Tablet(s), Oral, once a day anxiety, depression New Routed to [address] [address] Stop Taking the Following Medications: sertraline (sertraline 100 mg oral tablet) Medication list as of 06-06-13 15:36 Attention: If you have any medications at home that are not on this list, DO NOT take them until youcontact your provider for clarification. Give a copy of your medication list to your primary care provider. Update your medication list any time medications or doses are changed and carry your medication list at all times in case of emergency. Additional Information: Source: [facility] POWERCHART Document Id: [id number] Miscellaneous - Conversion, Historical Provider Ser - 06/06/2013 2:42 PM CDT Adult Director Prospect Intake/History Adult Director Prospect Intake/History Entered On: 06/06/2013 14:43 CDT Performed On: 06/06/2013 14:42 CDT by IVELISSE CABRAL Intake Chief Complaint : Discuss suboxone and med refills Temperature Oral : 36.4 DegC(Converted to: 97.5 DegF) Peripheral Pulse Rate : 81 /min Respiratory Rate : 18 /min Heart Rhythm : Regular Systolic Blood Pressure : 101 mmHg Diastolic Blood Pressure : 61 mmHg NIBP Mean : 74 mmHg BP Location : Right upper extremity Blood Pressure Cuff Size : Large Actual Weight : 65.8 kg(Converted to: 145 lb 1 oz) Weight Source : Standing scale Dosing Weight Clinic : 65.8 kg IVELISSE CABRAL 06/06/2013 14:42 CDT General Info Information Given By : Patient Languages : Slovenian IVELISSE CABRAL 06/06/2013 14:42 CDT Subjective Pain Symptoms : No IVELISSE CABRAL 06/06/2013 14:42 CDT Dependent Habits Tobacco Use/Currently Using : Yes Exposure to Tobacco Smoke : Patient smokes Smoking Status : Current every day smoker IVELISSE CABRAL 06/06/2013 14:42 CDT Tobacco Use Grid Type : Cigarettes Cigarette Use Packs/Day : 0.5 IVELISSE CABRAL 06/06/2013 14:42 CDT Caffeine Use Grid Caffeine Use : None IVELISSE CABRAL 06/06/2013 14:42 CDT Recreational Drug Use Grid Drug Use : None IVELISSE CABRAL 06/06/2013 14:42 CDT Source: [employer] Document Id: [id number] CDT!34 documented in this encounter Plan of Treatment Not on filedocumented as of this encounter Visit Diagnoses Not on filedocumented in this encounter Additional Health Concerns Assessment Noted Time PHQ-9 Depression Total Score: 4 06/06/2013 6:12 PM CDT documented as of this encounter
--- OUTSIDE RECORDS SUMMARY | 2022-02-10 14:42 | XMS_ITS | Encounter Summary ---
:1985 Author Organization [facility] Address [address] [place] [address] Care Team Providers Name Role Phone Unavailable Primary Care Provider Unavailable Encounter Details Date Type Department Care Team Description 05/02/2013 Hospital Encounter HX [facility] OP Teodoro Lucas M.D. [address] [place] [address] (Wo rk) Social History Tobacco [...] Priority Date/Time Associated Diagnosis Comme nts CT UROGRAM WITH IV Routine 05/02/2013 12:30 PM Re sults for this CONTRAST FIRER KILN procedure are i n the results section. documented in this encounter Results CT Urogram without IV Contrast (05/02/2013 12:30 PM FIRER KILN) Anatomical Region Laterality Modality Abdomen, Pelvis Computed Tomography Specimen (Source) Anatomical Collection Method Collection Time Re ceived Time Location / / Volume Laterality 05/02/2013 12:30 PM [facility]ER KILN Addenda Addendum by Provider, Delvin Pathak 05/02/2013 12:30 PM [facility]ER KILN RAD^^^OW CT Urogram 05/02/2013 12:30:00 Impressions 05/02/2013 3:05 PM FIRER KILN One small nonobstructing intrarenal calculus. A definite cause of the hematuria is not identified . Narrative 05/02/2013 3:05 PM FIRER KILN EXAM: CT Urogram INDICATION: hematuria COMPARISON: July 11, 2010 Technique: 70 mL of Omnipaque 300 were i njected followed by 150 mL of saline. Next 70 mL of Omnipaque 300 were injected followed by 40 mL of saline. There are sagittal and rivera l reconstructions. FINDINGS: Lung:Clear lung bases Pleural Fluid:No Hiatal Hernia:No Stomach:Negative Liver:Negative Gall Bladder:Negative Biliary Tree:Not dilated Pancreas:Negative Caval/Aorta nodes:.Not enlarged Spleen:Negative Kidneys:2 mm diameter stone in the super ior pole of the right kidney. Otherwise normal kidneys. No stone elsew here in the urinary tract including the urinary bladder. Ureters:Negative Adrenal:Negative Small Bowel:Not dilated Aorta:Negative Mesenteric Nodes:None enlarged Stranding:No Ventral Hernia:No Cecum:Negative Appendix:Negative series 2 image 112 Ascites:No RLQ Nodes:Within normal limits series 8 image 34 and Spine:Negative Sigmoid:Negative Uterus:Male Adnexa:Male Free Fluid:No Inguinal Hernia:No Urinary Bladder:Bilateral ureteral jets. Wall thickness appears uniform. Prostate:Not enlarged prominent seminal vesicles. Rectum:Negative Pelvic Nodes:None enlarged Inguinal Nodes:Slightly enlarged bilater ally. Pelvic Bones:Negative Procedure Note Wade Stewart M.D. / ProviderTamra M.D. - 07/15/2016 EXAM: CT Urogram INDICATION: hematuria COMPARISON: July 11, 2010 Technique: 70 mL of Omnipaque 300 were i njected followed by 150 mL of saline. Next 70 mL of Omnipaque 300 were injected followed by 40 mL of saline. There are sagittal and rivera l reconstructions. FINDINGS: Lung:Clear lung bases Pleural Fluid:No Hiatal Hernia:No Stomach:Negative Liver:Negative Gall Bladder:Negative Biliary Tree:Not dilated Pancreas:Negative Caval/Aorta nodes:.Not enlarged Spleen:Negative Kidneys:2 mm diameter stone in the super ior pole of the right kidney. Otherwise normal kidneys. No stone elsew here in the urinary tract including the urinary bladder. Ureters:Negative Adrenal:Negative Small Bowel:Not dilated Aorta:Negative Mesenteric Nodes:None enlarged Stranding:No Ventral Hernia:No Cecum:Negative Appendix:Negative series 2 image 112 Ascites:No RLQ Nodes:Within normal limits series 8 image 34 and Spine:Negative Sigmoid:Negative Uterus:Male Adnexa:Male Free Fluid:No Inguinal Hernia:No Urinary Bladder:Bilateral ureteral jets. Wall thickness appears uniform. Prostate:Not enlarged prominent seminal vesicles. Rectum:Negative Pelvic Nodes:None enlarged Inguinal Nodes:Slightly enlarged bilater ally. Pelvic Bones:Negative IMPRESSION: One small nonobstructing int rarenal calculus. A definite cause of the hematuria is not identified . Dilcia Hinds(R), RGermanTGerman(MR) IMG CT PROCEDURES documented in this encounter Visit Diagnoses Not on filedocumented in this encounter Additional Health Concerns Assessment Noted Time PHQ-9 Depression Total Score: 7 01/14/2013 4:05 PM FIRER KILN documented as of this encounter
--- OUTSIDE RECORDS SUMMARY | 2022-02-10 14:42 | XMS_ITS | Encounter Summary ---
:1985 Author Organization [facility] Address [address] [place] [address] Care Team Providers Name Role Phone Unavailable Primary Care Provider Unavailable Encounter Details Date Type Department Care Team Description 07/18/2013 Hospital Encounter HX [facility] INTERNMED Mejia Holloway APRN, C.N.P. 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 documented as of this encounter Progress Notes Mejia Holloway APRN, C.N.P. - 07/18/2013 3:29 PM CDT [id number] CHIEF COMPLAINT/REASON FOR VISIT Check ears. Concern for hemorrhoid. HISTORY OF PRESENT ILLNESS Mr. Adhikari is seen today to check on a lump on his rectum that he believes is a hemorrhoid. He also feels like his ears are a little bit plugged up with wax. He has had waxy buildup in the past. He had bought some [id number]-hmxpmdz hemorrhoid cream and he has been applying it once a day for the last 5 or 6 days and he does not feel like it has gotten any better. He did take a bath yesterday andagain still feels some discomfort in his rectal area. He has had no fevers or chills. He does feel constipated. Has not had a bowel movement in 3 days. Reports a history of irritable bowel syndrome butmore lately he has had more constipation. He has not taken anything for this. He does report in the past he was told he should be eat more fiber but he does not do this. He has had no hematochezia or melena. He has had no blood with wiping. MEDICATIONS Reviewed, no changes per EMR. ALLERGIES NSAIDs, history of peptic ulcers. VITAL SIGNS Temperature 37, pulse 96, pulse 20, blood pressure 118/80, weight 62.5 kg. PHYSICAL EXAMINATION GENERAL: Well-developed male in no acute distress. Alert, oriented, pleasant, cooperative. EARS: Right TMs pearly powell. Canal with only scant amount of cerumen. Left canal completely obscuredby cerumen and this was successfully lavaged by the clinic nurse. RECTUM: Between the 3 and 4 o'clock position, he has a purplish mass that is mildly tender to the touch. No active bleeding. No redness. No streaking. IMPRESSION/REPORT/PLAN 1. Cerumen impaction, successfully lavaged. 2. Hemorrhoid. His rectal lump is consistent with a hemorrhoid. We discussed other possibilities including perirectal abscess and tumor, however I do not believe it is the latter two. This has the general appearance of a hemorrhoid. It is non-thrombosed. It has been present now for a couple weeks, perhis report, and treated for 5 days with ihuv-wdr-mntrxoa medication that he is not sure exactly whathe bought. I will place him on hydrocortisone rectally twice a day for up to 10 days. Return if he is still having problems. Avoid straining. Avoid sitting for prolonged periods of time. Avoid constipation. I have placed him on Colace 100 mg twice a day. Recommend increasing dietary fiber to avoid problems into the future. If we are unable to control this, could consider lancing it versus seeing General Surgery. Glenn DevlinNMichael/dale Electronically Signed By: MEJIA HOLLOWAY BRAKE REPAIRER BUS On: 07/23/2013 08:14 AM Source: [facility] MHSDOLBEYNONRADSYS Document Id: [id number] documented in this encounter Miscellaneous Notes Miscellaneous - Mejia Holloway APRN, C.N.P. - 07/18/2013 4:46 PM CDT Ambulatory Patient Summary [address] [id number] Visit Information Name: ALEJANDRA ADHIKARI [facility] Number: [id number] Current Date: 07/18/2013 16:46:31 Physicians Attending Provider: MEJIA HOLLOWAY NP Primary Care Provider: FEDERICO CHO MD ALEJANDRA [...] 1 cap, Oral, two times a day New Routed to [facility] [address] [place], [place] [id number] HYDROcodone-acetaminophen ([place] 5 mg-325 mg oral tablet) 1 Tablet(s), Oral, every 6 hours as neededfor Pain No more than 4,000mg acetaminophen/24hrs hydrocortisone topical (Proctosol-HC 2.5% rectal cream with applicator) 1 sadia, Per rectum, two timesa day x 10 day(s) New Routed to [facility] [address] [place] [address] omeprazole (PriLOSEC 20 mg oral delayed release capsule) 1 cap, Oral, once a day Stomach protection sertraline (Zoloft 100 mg oral tablet) 1 Tablet(s), Oral, once a day Stop Taking the Following Medications: escitalopram (Lexapro 10 mg oral tablet) Medication list as of 07-18-13 16:46 Attention: If you have any medications at home that are not on this list, DO NOT take them until youcontact your provider for clarification. Give a copy of your medication list to your primary care provider. Update your medication list any time medications or doses are changed and carry your medication list at all times in case of emergency. Electronically Signed By: MEJIA HOLLOWAY BRAKE REPAIRER BUS Signed On:18-JUL-2013 16:46:22 Your Allergies & Intolerances Substance Reaction Symptoms [...] appointment detail needed. Your Goals/Additional instructions: Source: [facility] POWERCHART Document Id: [id number] Miscellaneous - Mejia Holloway APRN, C.N.P. - 07/18/2013 4:46 PM CDT Ambulatory Discharge Medication List [facility] [address] [place], [place] [id number] Visit Information Name: ALEJANDRA ADHIKARI [facility] Number: [id number] Visit Date: 07/18/2013 16:46:29 Attending Provider: MEJIA HOLLOWAY BRAKE REPAIRER BUS Primary Care Provider: FEDERICO CHO MD ALEJANDRA [...] 1 cap, Oral, two times a day New Routed to [facility] [address] [place] [address] HYDROcodone-acetaminophen ([place] 5 mg-325 mg oral tablet) 1 Tablet(s), Oral, every 6 hours as neededfor Pain No more than 4,000mg acetaminophen/24hrs hydrocortisone topical (Proctosol-HC 2.5% rectal cream with applicator) 1 sadia, Per rectum, two timesa day x 10 day(s) New Routed to [facility] [address] [place] [id number] omeprazole (PriLOSEC 20 mg oral delayed release capsule) 1 cap, Oral, once a day Stomach protection sertraline (Zoloft 100 mg oral tablet) 1 Tablet(s), Oral, once a day Stop Taking the Following Medications: escitalopram (Lexapro 10 mg oral tablet) Medication list as of 07-18-13 16:46 Attention: If you have any medications at home that are not on this list, DO NOT take them until youcontact your provider for clarification. Give a copy of your medication list to your primary care provider. Update your medication list any time medications or doses are changed and carry your medication list at all times in case of emergency. Electronically Signed By: MEJIA HOLOLWAY BRAKE REPAIRER BUS Signed On:18-JUL-2013 16:46:22 Additional Information: Source: [facility] POWERCHART Document Id: [id number] Miscellaneous - Momo Marsh, L.P.N. - 07/18/2013 3:48 PM CDT Adult Compressor Technician Intake/History Adult Compressor Technician Intake/History Entered On: 07/18/2013 15:52 CDT Performed On: 07/18/2013 15:48 CDT by MOMO MARSH Intake Chief Complaint : check both ears ? hemmorroid, rectal pain, hasnt had a bm in days Temperature Core : 37 DegC(Converted to: 98.6 DegF) Peripheral Pulse Rate : 96 /min Respiratory Rate : 20 /min Systolic Blood Pressure : 118 mmHg Diastolic Blood Pressure : 20 mmHg (<LLOW) NIBP Mean : 53 mmHg BP Location : Right upper extremity Blood Pressure Cuff Size : Regular Actual Weight : 62.5 kg(Converted to: 137 lb 13 oz) Dosing Weight Clinic : 62.5 kg MOMO MARSH - 07/18/2013 15:48 CDT General Info Information Given By : Patient Languages : Mohawk MOMO MARSH - 07/18/2013 15:48 CDT Subjective Pain Symptoms : Yes MOMO MARSH - 07/18/2013 15:48 CDT Pain Pain Assessment Grid Pain 1 Location : Rectal Time Pattern : Constant MOMO MARSH - 07/18/2013 15:48 CDT Dependent Habits Tobacco Use/Currently Using : Yes Exposure to Tobacco Smoke : Patient smokes Smoking Status : Current every day smoker MOMO MARSH - 07/18/2013 15:48 CDT Tobacco Use Grid Type : Cigarettes Cigarette Use Packs/Day : 0.5 MOMO MARSH - 07/18/2013 15:48 CDT Caffeine Use Grid Caffeine Use : None MOMO MARSH - 07/18/2013 15:48 CDT Recreational Drug Use Grid Drug Use : None MOMO MARSH - 07/18/2013 15:48 CDT Source: [employer] Document Id: [id number] CDT!37 Miscellaneous - Momo Marsh L.P.N. - 07/18/2013 3:47 PM CDT Health Assessment Health Assessment Entered On: 07/18/2013 15:48 CDT Performed On: 07/18/2013 15:47 CDT by MOMO MARSH Health Assessment Complete Health Assessment Complete or Modified : Annual Health Assessment Annual Health Assessment Completed : Yes MOMO MARSH - 07/18/2013 15:47 CDT Nutrition Nutrition Risk Factors by History Adult : None MOMO MARSH - 07/18/2013 15:47 CDT Functional Current Daily Living Assistance : None MOMO MARSH - 07/18/2013 15:47 CDT Dependent Habits Tobacco Use/Currently Using : Yes Exposure to Tobacco Smoke : Patient smokes Smoking Status : Current every day smoker MOMO MARSH - 07/18/2013 15:47 CDT Tobacco Use Grid Type : Cigarettes Cigarette Use Packs/Day : 0.5 MOMO MARSH - 07/18/2013 15:47 CDT Caffeine Use Grid Caffeine Use : None MOMO MARSH - 07/18/2013 15:47 CDT Recreational Drug Use Grid Drug Use : None MOMO MARSH - 07/18/2013 15:47 CDT Psychosocial Domestic Abuse Concerns : None MOMO MARSH - 07/18/2013 15:47 CDT Advance Directive Advanced Directives : No MOMO MARSH - 07/18/2013 15:47 CDT Educ Needs Learning Style Preference Adult Grid Patient : Demonstration, Printed materials, Verbal explanation Family : Verbal explanation, Printed materials, Demonstration MOMO MARSH - 07/18/2013 15:47 CDT [facility] Document Id: [id number] CDT!30 documented in this encounter Plan of Treatment Not on filedocumented as of this encounter Visit Diagnoses Not on filedocumented in this encounter Additional Health Concerns Assessment Noted Time PHQ-9 Depression Total Score: 4 06/06/2013 6:12 PM CDT documented as of this encounter
--- OUTSIDE RECORDS SUMMARY | 2022-02-10 14:42 | XMS_ITS | Encounter Summary ---
:1985 Author Organization [facility] Address [address] [place] [address] Care Team Providers Name Role Phone Unavailable Primary Care Provider Unavailable Encounter Details Date Type Department Care Team Description 04/16/2013 Hospital Encounter HX [facility] INTERNMED Mejia Holloway APRN, C.N.P. [address] [place] [address] (Wo rk) Social History Tobacco Use Types Packs/Day Years Used Date Smoking Tobacco: Never Assessed Sex Assigned at Date Recorded Male 10/17/2017 10:58 AM CDT documented as of this encounter Last Filed Vital Signs Vital Sign Reading Time Taken Comments Blood Pressure 94/52 04/16/2013 3:42 PM JUNIOR LOAN PROCESSOR Pulse 68 04/16/2013 3:42 PM JUNIOR LOAN PROCESSOR Temperature - - Respiratory Rate 20 04/16/2013 3:42 PM JUNIOR LOAN PROCESSOR Oxygen Saturation - - Inhaled Oxygen Concentration - - Weight 63.5 kg (139 lb 15.9 oz) 04/16/2013 3:42 PM JUNIOR LOAN PROCESSOR Height - - Body Mass Index 23.04 01/14/2013 4:02 PM JUNIOR LOAN PROCESSOR documented in this encounter Medications at Time of Discharge Medication Sig Dispensed Refills Start Date End Date clonazePAM (KlonoPIN) 2 Twice A Day 0 08/27/2010 mg tablet buprenorphine-naloxone Place 1 Dose under 0 11/0911/04/2019 (SUBOXONE) 8-2 mg per SL the tongue 2 (two) film times a day. documented as of this encounter Progress Notes Mejia Holloway APRN, C.N.P. - 04/16/2013 3:28 PM CST [id number] CHIEF COMPLAINT/REASON FOR VISIT Dysuria and hematuria. HISTORY OF PRESENT ILLNESS Mr. Adhikari presents today for hematuria and dysuria. Symptoms have been present since this morning. He called into the nurse line and was recommended that he get an appointment for possible urinary tract infection. Reports longstanding history of urinary difficulties largely with split stream with his urine since undergoing a cystoscopy in approximately 2008. He actually brought this up to urologic visit he had with Teodoro Wood M.D. in September2011. Workup was advised however he did not follow throughwith those recommendations. His main concerns coming in today, however, is that over the last coupledays he has had some discomfort when he urinates and this morning towards the end of urination. He no ticed a little bit of pink with the urine. He has not been having any abdominal pains. No back pain.No fevers or chills. His only symptom is dysuria and then noticing what he believes was blood at theend of his urinary stream. He denies gross hematuria throughout urination. He does report history ofunprotected sex with multiple partners. He has actually been tested numerous times in the past for chlamydia and gonorrhea, most recently as November 2012 and they were negative. He has been sexually active since that time. MEDICATIONS Reviewed. No changes per EMR. ALLERGIES NSAIDs. VITAL SIGNS TEMPERATURE: 38. PULSE: 68. RESPIRATIONS: 20. BLOOD PRESSURE: 94/52. WEIGHT: 63.5 kg. PHYSICAL EXAMINATION GENERAL: Well-developed male in no acute distress. Alert and oriented. DIAGNOSTICS: Urinalysis negative protein, negative glucose, negative ketones, negative bilirubin, negative blood, negative nitrite, negative leukocyte esterase, 1 to 3 white blood cells on microscopy, 3 to 10 red blood cells on microscopy, and large amount of mucus present. IMPRESSION/REPORT/PLAN 1. Dysuria. 2. Hematuria. PLAN: No obvious abnormalities on his urinalysis that would suggest infection. Because he does have some red blood cells present if his chlamydia and gonorrhea tests come back negative will have him repeat urinalysis in 10 days along with culture and given all of his urologic complaints and lack of followup with Urology back in 2011 I am just going to go ahead and place a urologic consult as that is what he wants to discuss his stream issues anyway. We will follow up with him on the results when they are available. Mejia Holloway C.N.P./renu Electronically Signed By: MEJIA HOLLOWAY SPORTS PHYSIOLOGIST On: 04/18/2013 08:41 AM Source: [facility] MHSDOLBEYNDEIRDRES Document Id: [id number] OR LOAN PROCESSOR documented in this encounter Miscellaneous Notes Miscellaneous - Mejia Holloway APRN, C.N.P. - 04/22/2013 8:54 AM CST Results Notification Document Contains Addenda Addendum by MAYRA DE LEON on 22 April 2013 10:14:35 JUNIOR LOAN PROCESSOR Patient notified. From: MEJIA HOLLOWAY SPORTS PHYSIOLOGIST Sent: 04/22/2013 08:54:00 JUNIOR LOAN PROCESSOR ! Show up: 04/22/2013 08:54:00 JUNIOR LOAN PROCESSOR Subject: Results Notification Actions: Notify patient of results Reminder Comments: STD test negative. Follow up with urology. Results: Date Result Name Value Ref Range 04/16/2013 16:31 C trach Amp Src-[place] urine 04/16/2013 16:31 C trach Amp RNA-[place] Negative (Negative - ) 04/16/2013 16:31 N gonor Amp DNA-[place] Negative (Negative - ) 04/16/2013 16:31 N gonor Amp Src-[place] urine 04/16/2013 16:31 UA Color STRAW 04/16/2013 16:31 UA Spec Grav 1.025 (>=1.030 - ) 04/16/2013 16:31 UA pH 6.5 (8.5 - ) 04/16/2013 16:31 UA Protein Negative (Negative - ) 04/16/2013 16:31 UA Glucose Negative (Negative - ) 04/16/2013 16:31 UA Ketones Negative (Negative - ) 04/16/2013 16:31 UA Bili Negative (Negative - ) 04/16/2013 16:31 UA Urobilinogen 0.2 (1.0 - ) 04/16/2013 16:31 UA Blood Negative (Negative - ) 04/16/2013 16:31 UA Nitrite Negative (Negative - ) 04/16/2013 16:31 UA Leuk Est Negative (Negative - ) 04/16/2013 16:31 UA WBC 1-3 04/16/2013 16:31 UA RBC 3-10 (0-2 - ) 04/16/2013 16:31 UA Bacteria Negative (Negative - ) 04/16/2013 16:31 UA Mucous Large (Negative - ) 04/16/2013 16:31 UA Epi Negative (Negative - ) 04/16/2013 16:31 UA Casts None Seen (None Seen - ) 04/16/2013 16:31 UA Crystals None Seen (None Seen - ) 04/16/2013 16:31 UR % Dysmorphic RBC <=25 % (<=25 - ) Source: [facility] POWERCHART Document Id: [id number] Electronically signed by Conversion, [facility] Residential Energy Auditor [id number] at 08/02/2016 3:04 PM CDT Miscellaneous - Conversion, Historical Provider Ser - 04/16/2013 3:42 PM JUNIOR LOAN PROCESSOR Adult Meat Specialist Intake/History Adult Meat Specialist Intake/History Entered On: 04/16/2013 15:52 JUNIOR LOAN PROCESSOR Performed On: 04/16/2013 15:42 JUNIOR LOAN PROCESSOR by SANDRA SANON Intake Chief Complaint : Hard to urinate and then a little bit of blood at the end of his stream. Pain. Penis hurts really bad. Blood just appeared today. Pain is every morning. Temperature Core : 38.0 DegC(Converted to: 100.4 DegF) Peripheral Pulse Rate : 68 /min Respiratory Rate : 20 /min Heart Rhythm : Regular Systolic Blood Pressure : 94 mmHg Diastolic Blood Pressure : 52 mmHg NIBP Mean : 66 mmHg BP Location : Right upper extremity Blood Pressure Cuff Size : Regular Actual Weight : 63.5 kg(Converted to: 140 lb 0 oz) Dosing Weight Clinic : 63.5 kg SANDRA SANON - 04/16/2013 15:42 JUNIOR LOAN PROCESSOR General Info Information Given By : Patient Languages : Turkmen SANDRA SNAON - 04/16/2013 15:42 JUNIOR LOAN PROCESSOR Subjective Pain Symptoms : Yes SANDRA SANON - 04/16/2013 15:42 JUNIOR LOAN PROCESSOR Pain Pain Assessment Grid Pain 1 Location : Groin Intensity : 5 SANDRA SANON - 04/16/2013 15:42 JUNIOR LOAN PROCESSOR Dependent Habits Tobacco Use/Currently Using : Yes Tobacco Use/Advised to Quit : Yes Exposure to Tobacco Smoke : Patient smokes Smoking Status : Current every day smoker SANDRA SANON - 04/16/2013 15:42 JUNIOR LOAN PROCESSOR Tobacco Use Grid Type : Cigarettes Cigarette Use Packs/Day : 0.5 SANDRA SANON - 04/16/2013 15:42 JUNIOR LOAN PROCESSOR Alcohol Use : No SANDRA SANON - 04/16/2013 15:42 JUNIOR LOAN PROCESSOR Caffeine Use Grid Caffeine Use : None SANDRA SANON - 04/16/2013 15:42 JUNIOR LOAN PROCESSOR Recreational Drug Use Grid Drug Use : None SANDRA SANON - 04/16/2013 15:42 JUNIOR LOAN PROCESSOR Source: [employer] Document Id: [id number] JUNIOR LOAN PROCESSOR!40 Miscellaneous - Conversion, Historical Provider Ser - 04/16/2013 3:38 PM JUNIOR LOAN PROCESSOR Meaningful Use Influenza Exclusion Meaningful Use Influenza Exclusion Entered On: 04/16/2013 15:38 JUNIOR LOAN PROCESSOR Performed On: 04/16/2013 15:38 JUNIOR LOAN PROCESSOR by SANON SANDRA Influenza Vaccine Exclusion Influenza Vaccine Exclusion : Patient declined SANDRA SANON - 04/16/2013 15:38 JUNIOR LOAN PROCESSOR Source: [employer] Document Id: [id number] JUNIOR LOAN PROCESSOR!3 documented in this encounter Plan of Treatment Not on filedocumented as of this encounter Procedures Procedure Name Priority Date/Time Associated Comments Diagnosis N GONOR AMP SRC Routine 04/16/2013 4:31 PM Result s for this JUNIOR LOAN PROCESSOR procedure are i n the results section. N GONOR AMP DNA Routine 04/16/2013 4:31 PM Result s for this JUNIOR LOAN PROCESSOR procedure are i n the results section. C TRACH AMP SRC Routine 04/16/2013 4:31 PM Result s for this JUNIOR LOAN PROCESSOR procedure are i n the results section. C TRACH AMP RNA Routine 04/16/2013 4:31 PM Result s for this JUNIOR LOAN PROCESSOR procedure are i n the results section. HXUR % DYSMORPHIC RBC Routine 04/16/2013 4:31 PM Results for this JUNIOR LOAN PROCESSOR procedure are i n the results section. URINALYSIS WITH Routine 04/16/2013 4:31 PM Result s for this MICROSCOPIC JUNIOR LOAN PROCESSOR procedure are i n the results section. documented in this encounter Results HX-N gonor Amp DNA (04/16/2013 4:31 PM JUNIOR LOAN PROCESSOR) athologist Signature HXN gonor Amp Negative POWERCHART DNA-[place] Specimen (Source) Anatomical Collection Method Collection Time Re ceived Time Location / / Volume Laterality 04/16/2013 4:31 PM JUNIOR LOAN PROCESSOR Narrative POWERCHART - 04/18/2013 8:06 PM JUNIOR LOAN PROCESSOR Test Performed by: [address] [address] Mobile Service Rv Technician: Phong mcknight III, M.D. Mejia Holloway APRN, C.N.P. LAB HISTORICAL ORDERS Performing Organization Address City/State/ZIP Code Phon e Number POWERCHART HX-N gonor Amp Src (04/16/2013 4:31 PM JUNIOR LOAN PROCESSOR) athologist Signature HXN gonor Amp urine POWERCHART Src-[place] Specimen (Source) Anatomical Collection Method Collection Time Re ceived Time Location / / Volume Laterality 04/16/2013 4:31 PM JUNIOR LOAN PROCESSOR Mejia Holloway APRN, C.N.P. LAB HISTORICAL ORDERS Performing Organization Address City/State/ZIP Code Phon e Number POWERCHART HX-C trach Amp RNA (04/16/2013 4:31 PM JUNIOR LOAN PROCESSOR) [facility] Method Time Signature Chlamydia Negative POWERCHART trachomatis amplified RNA Specimen (Source) Anatomical Collection Method Collection Time Re ceived Time Location / / Volume Laterality 04/16/2013 4:31 PM JUNIOR LOAN PROCESSOR Mejia Holloway APRN, C.N.P. LAB HISTORICAL ORDERS Performing Organization Address City/State/ZIP Code Phon e Number POWERCHART HX-C trach Amp Src (04/16/2013 4:31 PM JUNIOR LOAN PROCESSOR) athologist Signature HXC trach Amp urine POWERCHART Src-[place] Specimen (Source) Anatomical Collection Method Collection Time Re ceived Time Location / / Volume Laterality 04/16/2013 4:31 PM JUNIOR LOAN PROCESSOR Mejia Holloway APRN, C.N.P. LAB HISTORICAL ORDERS Performing Organization Address City/State/ZIP Code Phon e Number POWERCHART HXUR % DYSMORPHIC RBC (04/16/2013 4:31 PM JUNIOR LOAN PROCESSOR) P athologist Signature Dysmorphic RBC <=25 <=25 POWERCHART Specimen Anatomical Collection Method Collection Time Receive d Time (Source) Location / / Volume Laterality Urine 04/16/2013 4:31 PM 4 4:31 JUNIOR LOAN PROCESSOR PM JUNIOR LOAN PROCESSOR Mejia Holloway APRN, C.N.P. LAB HISTORICAL ORDERS Performing Organization Address City/State/ZIP Code Phon e Number POWERCHART Urinalysis, Complete, Includes Microscopic (04/16/2013 4:31 PM JUNIOR LOAN PROCESSOR) [facility] gist Method Time Signature Source Clean Void POWERCHART Urine HXUr Color STRAW POWERCHART Glucose Negative Negative POWERCHART HXBILIRUBIN Negative Negative POWERCHART Ketones, QL(U) Negative Negative POWERCHART Specific 1.025 >=1.030 POWERCHART [place], POCT, U pH, POCT, Urine 6.5 8.5 POWERCHART Protein, Ur, Dip Negative Negative POWERCHART Urobilinogen 0.2 1.0 POWERCHART HXNITRITE Negative Negative POWERCHART HXBLOOD Negative Negative POWERCHART Leukocyte Negative Negative POWERCHART Esterase HXUr WBC 1-3 POWERCHART Red Blood Cell 3-10 0 - 2 POWERCHART Clump, Urine HXUr Bacteria Negative Negative POWERCHART HXUr Epithelial Negative Negative POWERCHART HX MUCOUS Large Negative POWERCHART THREADS HX Ur Casts None Seen None Seen POWERCHART Crystals None Seen None Seen POWERCHART Specimen (Source) Anatomical Collection Method Collection Time Re ceived Time Location / / Volume Laterality Urine 04/16/2013 4:31 PM JUNIOR LOAN PROCESSOR Mejia Holloway APRN, C.N.P. LAB URINE ORDERABLES Performing Organization Address City/State/ZIP Code Phon e Number POWERCHART documented in this encounter Visit Diagnoses Not on filedocumented in this encounter Additional Health Concerns Assessment Noted Time PHQ-9 Depression Total Score: 7 01/14/2013 4:05 PM JUNIOR LOAN PROCESSOR documented as of this encounter
--- OUTSIDE RECORDS SUMMARY | 2022-02-10 14:43 | XMS_ITS | Encounter Summary ---
:1985 Author Organization [facility] Address [address] [place] [address] Care Team Providers Name Role Phone Unavailable Primary Care Provider Unavailable Encounter Details Date Type Department Care Team Description 12/06/2011 Hospital Encounter HX [facility] Luis Rodriguez Jr., M.D. [address], [place] [phone] (Wo rk) Social History [...] documented as of this encounter Progress Notes Francisca Schultz, C.O.T. - 12/06/2011 2:18 PM CDT [facility] Exam [facility] Exam Entered On: 12/06/2011 14:23 CDT Performed On: 12/06/2011 14:18 CDT by FRANCISCA SCHULTZ Chief Complaint and History Pain Symptoms : No Smoking Status : Never smoker Comment : Pt here for dilation both eyes was here a few wks ago for complete exam but became ill andleft Family History Reviewed : 12/06/2011 CDT FRANCISCA SCHULTZ - 12/06/2011 14:18 CDT Optometry Exam Familty History Grid Diabetes : Grandparents Smoker : Self Glaucoma : Father FRANCISCA SCHULTZ 12/06/2011 14:18 CDT Vision Testing Right Eye Vision Testing : Without correction, 20/20 Left Eye Vision Testing : Without correction, 20/20 Both Eyes Vision Testing : Without correction, 20/20 Near Vision Right Eye : J-1 Near Vision Left Eye : J-1 Near Vision Both Eyes : J-1 FRANCISCA SCHULTZ 12/06/2011 14:18 CDT Refraction Right Eye Manifest Grid Date : 10/31/2011 CDT 12/06/2011 CDT Performed by : [employer] Sphere : 0 -0.25 Visual Acuity Distance : 20/20 20/20 FRANCISCA SCHULTZ 12/06/2011 14:18 CDT FRANCISCA SCHULTZ 12/06/2011 14:18 CDT Left Eye Manifest Grid Date : 10/31/2011 CDT 12/06/2011 CDT Performed by : [employer] Sphere : 0 -0.25 Visual Acuity Distance : 20/20 20/20 FRANCISCA SCHULTZ 12/06/2011 14:18 CDT FRANCISCA SCHULTZ 12/06/2011 14:18 CDT Ocular Testing EOMS : Normal Pupils : PERRLA Cover Test : Normal Comment : kathleen full FRANCISCA SCHULTZ 12/06/2011 14:18 CDT Intraoccular Pressures Intraoccular Pressures Grid Date : 10/31/2011 CDT 10/31/2011 CDT 12/06/2011 CDT 12/06/2011 CDT Eye : RE LE RE LE Applanation : 16 16 Eye Drops : Fluress Fluress FRANCISCA SCHULTZ 12/06/2011 14:18 CDT FRANCISCA SCHULTZ 12/06/2011 14:18 CDT FRANCISCA SCHULTZ 12/06/2011 14:18 CDT FRANCISCA SCHULTZ 12/06/2011 14:18 CDT Eye Drops Exam Phenylephrine 2.5% Eye Drops Eye : Both eyes Phenylephrine 2.5% Eye Drops Amount : One drop Phenylephrine 2.5% Eye Drops Time : 14:21 WALLPAPERER Tropicamide 1% Eye Drops Eye : Both eyes Tropicamide 1% Eye Drops Amount : One drop Tropicamide 1% Eye Drops Time : 14:21 WALLPAPERER FRANCISCA SCHULTZ 12/06/2011 14:18 CDT Ocular Health Ocular Health Ext Rt Eye Grid Ext Rt Eye - Lids/Lashes : Normal Ext Rt Eye - Conjunctiva : Normal Ext Rt Eye - Cornea : Normal Ext Rt Eye - A/C : Normal Ext Rt Eye - Iris : Normal Ext Rt Eye - Lens : Normal LUIS HUERTA MD - 12/06/2011 14:51 CDT Ocular Health Ext Lt Eye Grid Ext Lt Eye - Lids/Lashes : Normal Ext Lt Eye - Conjunctiva : Normal Ext Lt Eye - Cornea : Normal Ext Lt Eye - A/C : Normal Ext Lt Eye - Iris : Normal Ext Lt Eye - Lens : Normal LUIS HUERTA MD - 12/06/2011 14:51 CDT Ocular Health Int Rt Eye Grid Int Rt Eye - Vitreous : Normal Int Rt Eye - C/D : Normal (Comment: 0.5 [LUIS HUERTA MD - 12/06/2011 14:51 CDT] ) Int Rt Eye - Margins : Normal Int Rt Eye - Color : Normal Int Rt Eye - Macula : Normal Int Rt Eye - Posterior Pole : Normal Int Rt Eye - Periphery : Normal Int Rt Eye - Vessels : Normal LUIS HUERTA MD - 12/06/2011 14:51 CDT Ocular Health Int Lt Eye Grid Int Lt Eye - Vitreous : Normal Int Lt Eye - C/D : Normal (Comment: 0.3 [LUIS HUERTA MD - 12/06/2011 14:51 CDT] ) Int Lt Eye - Margins : Normal Int Lt Eye - Color : Normal Int Lt Eye - Macula : Normal Int Lt Eye - Posterior Pole : Normal Int Lt Eye - Periphery : Normal Int Lt Eye - Vessels : Normal LUIS HUERTA MD - 12/06/2011 14:51 CDT Assessment Findings : Glaucoma suspect, Other: C/D asymmetry Plan : VF, Other: RTO 6-8 weeks, HVF 24-2 LUIS HUERTA MD - 12/06/2011 14:51 CDT [facility]: [facility] POWERCHART Document Id: [id number] documented in this encounter Plan of Treatment Not on filedocumented as of this encounter Visit Diagnoses Not on filedocumented in this encounter
--- OUTSIDE RECORDS SUMMARY | 2022-02-10 14:43 | XMS_ITS | Encounter Summary ---
:1985 Author Organization [facility] Address [address] [place] [address] Care Team Providers Name Role Phone Unavailable Primary Care Provider Unavailable Encounter Details Date Type Department Care Team Description 10/31/2011 Hospital Encounter HX NO MAPPING John Garrison M.D. [address] [place] [phone] (Wo rk) Social History Tobacco Use Types Packs/Day Years Used Date Smoking Tobacco: Never Assessed Sex Assigned at Date Recorded Male 10/17/2017 10:58 AM CDT documented as of this encounter Medications at Time of Discharge Medication Sig Dispensed Refills Start Date End Date clonazePAM (KlonoPIN) 2 mg tablet Twice A Day 0 0 08/27/2010 documented as of this encounter Plan of Treatment Not on filedocumented as of this encounter Procedures Procedure Name Priority Date/Time Associated Diagnosis Comme nts DX CHEST AP OR PA Routine 10/31/2011 11:27 AM Res ults for this AND LATERAL 2 VIEWS CDT procedur e are in the results section. documented in this encounter Results DX Chest AP or PA and Lateral 2 Views (10/31/2011 11:27 AM CDT) Anatomical Region Laterality Modality Chest N/A Radiographic Imaging Specimen (Source) Anatomical Collection Method Collection Time Re ceived Time Location / / Volume Laterality 10/31/2011 11:27 AM CDT Addenda Addendum by Provider, Delvin Pathak 10/31/2011 11:27 AM CDT RAD^^^OW XR Chest 2 Views 10/31/2011 11:27:30 Impressions 10/31/2011 11:51 AM CDT ??No acute findings. Narrative 10/31/2011 11:51 AM CDT EXAM: ??XR Chest 2 Views AGE: ??25 years old. GENDER: ??Male. INDICATION: ??Dizzy, Cough COMPARISON: ??None. FINDINGS: ??Calcified granuloma left dc g base. No focal areas of consolidation. No pneumothorax. Chest ot herwise negative. Procedure Note Abdiel Stein M.D. / Provider, Tamra mckeon M.D. - 07/27/2016 EXAM: XR Chest 2 Views AGE: [age] years old. GENDER: Male. INDICATION: Dizzy, Cough COMPARISON: None. FINDINGS: Calcified granuloma left lung base. No focal areas of consolidation. No pneumothorax. Chest ot herwise negative. IMPRESSION: No acute findings. Jennifer Hinds(R)(CT), R.T.(R) IMG DIAGNOSTIC IM AGING PROCEDURES documented in this encounter Visit Diagnoses Not on filedocumented in this encounter
--- OUTSIDE RECORDS SUMMARY | 2022-02-10 14:43 | XMS_ITS | Encounter Summary ---
:1985 Author Organization [facility] Address [address] [place] [address] Care Team Providers Name Role Phone Unavailable Primary Care Provider Unavailable Encounter Details Date Type Department Care Team Description 10/31/2011 Hospital Encounter HX [facility] Luis Rodriguez Jr., M.D. [address], [place] [phone] (Wo rk) Social History Tobacco Use Types Packs/Day Years Used Date Smoking Tobacco: Never Assessed Sex Assigned at Date Recorded Male 10/17/2017 10:58 AM CDT documented as of this encounter Medications at Time of Discharge Medication Sig Dispensed Refills Start Date End Date clonazePAM (KlonoPIN) 2 mg tablet Twice A Day 0 0 08/27/2010 documented as of this encounter Progress Notes Francisca Schultz, C.O.T. - 10/31/2011 9:57 AM CDT [facility] Services [facility] Exam [facility] Services Clinic Exam Entered On: 10/31/2011 10:21 CDT Performed On: 10/31/2011 9:57 CDT by FRANCISCA SCHULTZ Chief Complaint and History Pain Symptoms : No Smoking Status : Current some day smoker Comment : Pt here for complete eye exam Has been noticing flashes of bright lights and shiny circlesin both eyes Family History Reviewed : 11/01/2011 CDT FRANCISCA SCHULTZ - 10/31/2011 9:57 CDT Optometry Exam Familty History Grid Diabetes : Grandparents Smoker : Self Glaucoma : Father FRANCISCA SCHULTZ - 10/31/2011 9:57 CDT Vision Testing Right Eye Vision Testing : Without correction, 20/20 Left Eye Vision Testing : Without correction, 20/20 Both Eyes Vision Testing : Without correction, 20/20 Near Vision Right Eye : J-1 Near Vision Left Eye : J-1 Near Vision Both Eyes : J-1 FRANCISCA SCHULTZ - 10/31/2011 9:57 CDT Refraction Right Eye Manifest Grid Date : 10/31/2011 CDT Performed by : [facility] Sphere : 0 Visual Acuity Distance : 20/20 FRANCISCA SCHULTZ - 10/31/2011 9:57 CDT Left Eye Manifest Grid Date : 10/31/2011 CDT Performed by : Luis Felipe Sphere : 0 Visual Acuity Distance : 20/20 FRANCISCA SCHULTZ - 10/31/2011 9:57 CDT Ocular Testing EOMS : Normal Comment : Pupils 4 do not react ro light Cover Test : Normal Comment : kathleen full FRANCISCA SCHULTZ - 10/31/2011 9:57 CDT Intraoccular Pressures Intraoccular Pressures Grid Date : 10/31/2011 CDT 10/31/2011 CDT Eye : RE LE FRANCISCA SCHULTZ - 10/31/2011 9:57 CDT FRANCISCA SCHULTZ - 10/31/2011 9:57 CDT Eye Drops Exam Phenylephrine 2.5% Eye Drops Comment : Pt did not get seen by Dr Lancaster became ill asked to go to ER FRANCISCA SCHULTZ - 10/31/2011 10:45 CDT Phenylephrine 2.5% Eye Drops Eye : Both eyes Phenylephrine 2.5% Eye Drops Amount : One drop Phenylephrine 2.5% Eye Drops Time : 10:20 ADMINISTRATIVE LIBRARY ASSISTANT Tropicamide 1% Eye Drops Eye : Both eyes Tropicamide 1% Eye Drops Amount : One drop Tropicamide 1% Eye Drops Time : 10:21 ADMINISTRATIVE LIBRARY ASSISTANT FRANCISCA SCHULTZ - 10/31/2011 9:57 CDT Source: [facility] POWERCHART Document Id: [id number] documented in this encounter Plan of Treatment Not on filedocumented as of this encounter Visit Diagnoses Not on filedocumented in this encounter
--- OUTSIDE RECORDS SUMMARY | 2022-02-10 14:43 | XMS_ITS | Encounter Summary ---
:1985 Author Organization [facility] Address [address] [place] [address] Care Team Providers Name Role Phone Unavailable Primary Care Provider Unavailable Encounter Details Date Type Department Care Team Description 07/19/2012 Hospital Encounter HX [facility] Tania Franklin M.D. Social History Tobacco Use Types Packs/Day Years Used Date Smoking Tobacco: Never Assessed Sex Assigned at Date Recorded Male 10/17/2017 10:58 AM CDT documented as of this encounter Last Filed Vital Signs Vital Sign Reading Time Taken Comments Blood Pressure 98/56 07/19/2012 9:10 AM CDT Pulse 84 07/19/2012 9:10 AM CDT Temperature - - Respiratory Rate 16 07/19/2012 9:10 AM CDT Oxygen Saturation - - Inhaled Oxygen Concentration - - Weight 70.3 kg (154 lb 15.7 oz) 07/19/2012 9:10 AM CDT Height - - Body Mass Index 26.14 06/17/2011 3:07 PM CDT documented in this encounter Medications at Time of Discharge Medication Sig Dispensed Refills Start Date End Date clonazePAM (KlonoPIN) 2 Twice A Day 0 08/27/2010 mg tablet buprenorphine-naloxone Place 1 Dose under 0 11/0911/04/2019 (SUBOXONE) 8-2 mg per SL the tongue 2 (two) film times a day. documented as of this encounter Progress Notes Federico Andino M.D. - 07/19/2012 9:02 AM CDT [id number] CHIEF COMPLAINT/REASON FOR VISIT Emergency room follow-up HISTORY OF PRESENT ILLNESS Tarik is a 26-year-old male presenting today for emergency room follow-up on his left muscle pull. Hestates that it is definitely improving although is still quite painful. He is unable to straighten his arm. He has finished the oxycodone and although he is still uncomfortable he feels he can continueto manage with just Tylenol. NSAIDs are contraindicated because his endoscopy this past June showedmultiple peptic ulcers. CURRENT MEDICATIONS Reviewed and updated in the EMR dated 07/19/12. ALLERGIES Reviewed and updated in the EMR dated 07/19/12. VITAL SIGNS WEIGHT: 70.3 kg TEMP: 36.7 DegC PULSE: 84 /min RESP RATE: 16 /min SYSTOLIC: 98 mmHg DIASTOLIC: 56 mmHg PHYSICAL EXAMINATION GENERAL: Well-developed male in no acute distress. EXTREMITIES: Left forearm is tender to palpation over the biceps and particularly over the lateral aspect. No mass or evidence of any rupture. He has tenderness primarily in the muscle and tendon area,not over the bone. He is able to fully flex the elbow and with encouragement he is able to extend towithin 5 degrees of full extension. Supination and pronation are okay. He has good strength in the left arm with all testing. IMPRESSION/REPORT/PLAN Strain with possible mild tear of the left biceps Plan: Continue conservative treatments. Did encourage him to work on range of motion to get to full extension even if uncomfortable. Limit activities over the next two to three weeks while this is healing. If he is unable to completely straighten at that time return for follow-up and would recommendedphysical therapy. Otherwise in two to three weeks he can resume some light weight lifting (5-10 pounds) and increase as tolerated. This document serves as a record of services personally performed by Dr. Federico Franklin. It was created on their behalf by Sonya Salas, a trained director of medical services. The creation of this record is based on the scribe's personal observations and the provider's statements to them. This document has been checked and approved by the attending provider. 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 Entered On: 07/19/2012 9:14 CDT Performed On: 07/19/2012 9:10 CDT by ELISSA GONZALES Intake Chief Complaint : F/U from ED torn muscle near elbow/check ears Temperature Oral : 36.7 DegC(Converted to: 98.1 DegF) Peripheral Pulse Rate : 84 /min Respiratory Rate : 16 /min Heart Rhythm : Regular Systolic Blood Pressure : 98 mmHg Diastolic Blood Pressure : 56 mmHg NIBP Mean : 70 mmHg BP Location : Right upper extremity Blood Pressure Cuff Size : Regular Oxygen Therapy : Room air Actual Weight : 70.3 kg(Converted to: 155 lb 0 oz) Weight Source : Standing scale Dosing Weight Clinic : 70.3 kg ELISSA GONZALES 07/19/2012 9:10 CDT General Info Information Given By : Patient Preferred Communication Mode : Verbal Languages : Yakut ELISSA GONZALES - 07/19/2012 9:10 CDT Subjective Pain Symptoms : Yes ELISSA GONZALES 07/19/2012 9:10 CDT Pain Pain Assessment Grid Pain 1 Location : Other: arm/elbow area Laterality : Left ELISSA GONZALES 07/19/2012 9:10 CDT Dependent Habits Tobacco Use/Currently Using : Yes Exposure to Tobacco Smoke : Patient smokes Smoking Status : Current every day smoker ELISSA GONZALES 07/19/2012 9:10 CDT Tobacco Use Grid Type : Cigarettes Cigarette Use Packs/Day : 1.0 ELISSA GONZALES 07/19/2012 9:10 CDT Alcohol Use : No ELISSA GONZALES 07/19/2012 9:10 CDT Caffeine Use Grid Caffeine Use : Current Type : Soft drinks Frequency : Daily Amount : 3 cans daily ELISSA GONZALES 07/19/2012 9:10 CDT Recreational Drug Use Grid Drug Use : None ELISSA GONZALES 07/19/2012 9:10 CDT Source: [employer] Document Id: [id number] CDT!45 Miscellaneous - Conversion, Historical Provider Ser - 07/19/2012 9:10 AM CDT Health Assessment Health Assessment Entered On: 07/19/2012 9:14 CDT Performed On: 07/19/2012 9:10 CDT by ELISSA GONZALES Health Assessment Complete Health Assessment Complete or Modified : Annual Health Assessment Annual Health Assessment Completed : Yes ELISSA GONZALES 07/19/2012 9:10 CDT Nutrition Nutrition Risk Factors by History Adult : None ELISSA GONZALES 07/19/2012 9:10 CDT Functional Current Daily Living Assistance : None ELISSA GONZALES 07/19/2012 9:10 CDT Dependent Habits Tobacco Use/Currently Using : Yes Exposure to Tobacco Smoke : Patient smokes Smoking Status : Current every day smoker ELISSA GONZALES 07/19/2012 9:10 CDT Tobacco Use Grid Type : Cigarettes Cigarette Use Packs/Day : 1.0 ELISSA GONZALES 07/19/2012 9:10 CDT Caffeine Use Grid Caffeine Use : Current Type : Soft drinks Frequency : Daily Amount : 3 cans daily ELISSA GONZALES 07/19/2012 9:10 CDT Recreational Drug Use Grid Drug Use : None ELISSA GONZALES 07/19/2012 9:10 CDT Psychosocial Domestic Abuse Concerns : None ELISSA GONZALES 07/19/2012 9:10 CDT Advance Directive Advanced Directives : No ELISSA GONZALES 07/19/2012 9:10 CDT Educ Needs Learning Style Preference Adult Grid Patient : None, Demonstration, Printed materials, Verbal explanation Family : None ELISSA GONZALES 07/19/2012 9:10 CDT Source: [facility] [employer] [facility] Document Id: [id number] CDT!33 documented in this encounter Plan of Treatment Not on filedocumented as of this encounter Visit Diagnoses Not on filedocumented in this encounter Additional Health Concerns Assessment Noted Time PHQ-9 Depression Total Score: 4 05/23/2012 10:47 AM CD T documented as of this encounter
--- OUTSIDE RECORDS SUMMARY | 2022-02-10 14:43 | XMS_ITS | Encounter Summary ---
:1985 Author Organization [facility] Address [address] [place] [address] Care Team Providers Name Role Phone Unavailable Primary Care Provider Unavailable Encounter Details Date Type Department Care Team Description 12/28/2011 Hospital Encounter HX NO MAPPING Vanessa Lanza M.D. [address] [place], [place] [address] (Wo rk) Social History Tobacco Use Types [...]
--- OUTSIDE RECORDS SUMMARY | 2022-02-10 14:43 | XMS_ITS | Encounter Summary ---
:1985 Author Organization [facility] Address [address] [place] [address] Care Team Providers Name Role Phone Unavailable Primary Care Provider Unavailable Encounter Details Date Type Department Care Team Description 01/02/2012 Hospital Encounter HX [facility] Tania Franklin M.D. Social History Tobacco Use Types Packs/Day Years Used Date Smoking Tobacco: Never Assessed Sex Assigned at Date Recorded Male 10/17/2017 10:58 AM CDT documented as of this encounter Last Filed Vital Signs Vital Sign Reading Time Taken Comments Blood Pressure 90/52 01/02/2012 1:18 PM CDT Pulse 104 01/02/2012 1:18 PM CDT Temperature - - Respiratory Rate 18 01/02/2012 1:18 PM CDT Oxygen Saturation - - Inhaled Oxygen Concentration - - Weight 70.6 kg (155 lb 10.3 oz) 01/02/2012 1:18 PM CDT Height - - Body Mass Index 26.25 06/17/2011 3:07 PM CDT documented in this encounter Medications at Time of Discharge Medication Sig Dispensed Refills Start Date End Date clonazePAM (KlonoPIN) 2 Twice A Day 0 08/27/2010 mg tablet buprenorphine-naloxone Place 1 Dose under 0 11/0911/04/2019 (SUBOXONE) 8-2 mg per SL the tongue 2 (two) film times a day. documented as of this encounter Progress Notes Federico Andino M.D. - 01/02/2012 1:11 PM CDT [id number] CHIEF COMPLAINT/REASON FOR VISIT Follow up cellulitis HISTORY OF PRESENT ILLNESS This 26-year-old white male obtained a new tattoo on his left forearm which became secondarily infected and he ended up being hospitalized. He is currently on both doxycycline and clindamycin and has been tolerating both. The arm is no longer tender or red. CURRENT MEDICATIONS EMR reviewed. No change. VITAL SIGNS EMR reviewed. No change. PHYSICAL EXAMINATION SKIN: On his left forearm he has the tattoo that has some dried skin but no open areas. There is no tenderness to palpation. IMPRESSION/REPORT/PLAN 1. Cellulitis, improved PLAN: Did encourage him to complete the course of antibiotics. Urged him to do nothing with the tattoo for even a couple of months since wants to do some revisions. Recheck if there is any evidence of recurrent infection once he is off the antibiotics. Federico Franklin M.D./bill Electronically Signed By: FEDERICO FRANKLIN MD On: 01/05/2012 09:34 PM Source: [facility] MHSDOLBEYNONRADSYS Document Id: [id number] documented in this encounter Miscellaneous Notes Miscellaneous - Federico Andino M.D. - 01/02/2012 5:03 PM CDT Ambulatory Patient Summary [address] [id number] Visit Information Name: ALEJANDRA ADHIKARI Current Date: 01/02/2012 17:03:11 Physicians Attending Provider: FEDERICO FRANKLIN MD Primary Care Provider: FEDERICO FRANKLIN MD Your Medications Here is a list of your medications. It is important to take your medications as directed. Use a pillbox or chart to help remind you to take your medications. Please let your doctor or nurse know if you have problems taking your medications. Medication/Strength Dose Route Frequency Indications/Special Instructions/Comments dextroamphetamine-amphetamine (Adderall XR 25 mg oral capsule, extended release) 1 cap(s) Oral once a day (in the morning) ADHD clonazepam (Klonopin 2 mg oral tablet) 2 mg Oral two times a day Anxiety alprazolam (Xanax 1 mg oral tablet) 1 mg Oral two times a day as needed for Anxiety hyoscyamine (hyoscyamine 0.125 mg oral tablet) 0.125 mg Oral four times a day as needed for spasm buprenorphine-naloxone (Suboxone 8 mg-2 mg sublingual film) 1 each Sublingual two times a day For addiction (dissolve under the tongue) ondansetron (Zofran 4 mg oral tablet) 4 mg Oral every 8 hours as needed for Nausea sertraline (sertraline 100 mg oral tablet) 150 mg Oral once a day anxiety, depression Attention: If you have any medications at [...] disorder, generalized Active 04/28/2011 ADHD Active 04/28/2011 Your Upcoming Appointments Date Time Location Reason Provider 01/24/2012 15:00 [facility] Ophth Eye Exam. See Order Detail. 01/24/2012 15:00 [facility] Ophth HVF 24.2 - 6 WEEK RCK Your Goals/Additional instructions: Source: [facility] POWERCHART Document Id: [id number] Miscellaneous - Federico Andino M.D. - 01/02/2012 5:03 PM CDT Ambulatory Depart Summary [address] [address] Visit Information Name: LYLEALEJANDRA Visit Date: 01/02/2012 17:03:10 Attending Provider: FEDERICO FRANKLIN MD Primary Care [...] your medications. Medication/Strength Dose Route Frequency Indications/Special Instructions/Comments dextroamphetamine-amphetamine (Adderall XR 25 mg oral capsule, extended release) 1 cap(s) Oral once a day (in the morning) ADHD clonazepam (Klonopin 2 mg oral tablet) 2 mg Oral two times a day Anxiety alprazolam (Xanax 1 mg oral tablet) 1 mg Oral two times a day as needed for Anxiety hyoscyamine (hyoscyamine 0.125 mg oral tablet) 0.125 mg Oral four times a day as needed for spasm buprenorphine-naloxone (Suboxone 8 mg-2 mg sublingual film) 1 each Sublingual two times a day For addiction (dissolve under the tongue) ondansetron (Zofran 4 mg oral tablet) 4 mg Oral every 8 hours as needed for Nausea sertraline (sertraline 100 mg oral tablet) 150 mg Oral once a day anxiety, depression Attention: If you have any medications at home that are not on this list, DO NOT take them until youcontact your provider for clarification. 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 Entered On: 01/02/2012 13:20 CDT Performed On: 01/02/2012 13:18 CDT by CORIN ARRIOLA Intake Chief Complaint : Hospital F/U - infection in left arm from tattoo Temperature Oral : 36.7C(Converted to: 98.1DegF) Peripheral Pulse Rate : 104/min (HI) Respiratory Rate : 18/min Heart Rhythm : Regular Systolic Blood Pressure : 90mmHg (LOW) Diastolic Blood Pressure : 52mmHg NIBP Mean : 65mmHg BP Location : Right upper extremity Blood Pressure Cuff Size : Large Actual Weight : 70.6kg(Converted to: 155lb 10oz) Weight Source : Standing scale Dosing Weight Clinic : 70.60kg CORIN ARRIOLA - 01/02/2012 13:18 CDT General Info Information Given By : Patient Preferred Communication Mode : Verbal Languages : Slovenian CORIN ARRIOLA - 01/02/2012 13:18 CDT Subjective Pain Symptoms : No CORIN ARRIOLA 01/02/2012 13:18 CDT Dependent Habits Tobacco Use/Currently Using : Yes Exposure to Tobacco Smoke : Patient smokes Smoking Status : Current every day smoker CORIN ARRIOLA 01/02/2012 13:18 CDT Tobacco Use Grid Type : Cigarettes Cigarette Use Packs/Day : 1.0 CORIN ARRIOLA 01/02/2012 13:18 CDT Caffeine Use Grid Caffeine Use : Current Type : Soft drinks Frequency : Daily Amount : 3 cans daily CORIN ARRIOLA 01/02/2012 13:18 CDT Recreational Drug Use Grid Drug Use : None CORIN ARRIOLA 01/02/2012 13:18 CDT Allergy Allergies (Active) NKA Estimated Onset Date: Unspecified ; Created By: IMTIAZ CLARK; Reaction Status: Active ; Category: Drug ; Substance: NKA ; Type: Allergy ; Updated By: IMTIAZ CLARK; Reviewed Date: 01/02/2012 13:16 CDT [email or web address] Document Id: [id number] documented in this encounter Plan of Treatment Not on filedocumented as of this encounter Visit Diagnoses Not on filedocumented in this encounter
--- OUTSIDE RECORDS SUMMARY | 2022-02-10 14:43 | XMS_ITS | Encounter Summary ---
:1985 Author Organization [facility] Address [address] [place] [address] Care Team Providers Name Role Phone Unavailable Primary Care Provider Unavailable Encounter Details Date Type Department Care Team Description 12/27/2011 Hospital Encounter HX NO MAPPING Dante Mcdaniel M.D. [address], [place] [phone] (Wo rk) Social History [...]
--- OUTSIDE RECORDS SUMMARY | 2022-02-10 14:43 | XMS_ITS | Encounter Summary ---
:1985 Author Organization [facility] Address [address] [place] [address] Care Team Providers Name Role Phone Unavailable Primary Care Provider Unavailable Encounter Details Date Type Department Care Team Description 11/17/2011 Hospital Encounter [facility]X [facility] Agueda Velasquez M.D. [address] [address] (Wo rk) Social History Tobacco Use Types Packs/Day Years Used Date Smoking Tobacco: Never Assessed Sex Assigned at Date Recorded Male 10/17/2017 10:58 AM CDT documented as of this encounter Last Filed Vital Signs Vital Sign Reading Time Taken Comments Blood Pressure 112/68 11/17/2011 8:03 AM CDT Pulse 60 11/17/2011 8:03 AM CDT Temperature - - Respiratory Rate 16 11/17/2011 8:03 AM CDT Oxygen Saturation - - Inhaled Oxygen Concentration - - Weight 67.6 kg (149 lb 0.5 oz) 11/17/2011 8:03 AM CDT Height - - Body Mass Index 25.13 06/17/2011 3:07 PM CDT documented in this encounter Medications at Time of Discharge Medication Sig Dispensed Refills Start Date End Date clonazePAM (KlonoPIN) 2 Twice A Day 0 08/27/2010 mg tablet buprenorphine-naloxone Place 1 Dose under 0 11/0911/04/2019 (SUBOXONE) 8-2 mg per SL the tongue 2 (two) film times a day. documented as of this encounter Progress Notes Michela Velasquez M.D. - 11/17/2011 12:00 AM CDT [id number] CHIEF COMPLAINT/REASON FOR VISIT 25-year-old male who had tentative diagnosis of IBS and was supposed to get some blood work and stool samples to the lab but did not come back for those, but he is having a little bit more trouble with it again, so he is wondering if he could have those tests done. No other specific concerns or problems at this time. He does get very crampy at times, gets very uncomfortable. Right now, in the office, he is actually feeling a little bit better at the moment. VITAL SIGNS Per EMR PHYSICAL EXAM Oropharynx clear. Mucous membranes seem very well hydrated. The neck is negative for masses or nodes of significance. Heart and lungs sounded fine. ABDOMEN: Normoactive bowel sounds. No acute tenderness on palpation or percussion at this time. No CVA tenderness at this time. IMPRESSION/REPORT/PLAN 1) Possible history suggestive of IBS. The labs that were originally ordered have been ordered again, basically a CBC, a CRP and a stool for C. diff. We are also going to go ahead and put him on hyoscyamine 0.125 q. 4 hours p.r.n. for any spasms in the abdomen and see if that helps him while he is undergoing his workup and returning to his regular doctor. Follow up with primary care as needed. Michela Velasquez M.D. [facility] Electronically Signed By: MICHELA VELASQUEZ MD On: 11/23/2011 08:23 AM Source: [facility] MHSDOLBEYNONRADSYS Document Id: [id number] documented in this encounter Miscellaneous Notes Miscellaneous - Michela Velasquez M.D. - 11/17/2011 8:29 AM CDT Ambulatory Patient Summary [facility] [address] [place] [id number] Visit Information Name: ALEJANDRA ADHIKARI Current Date: 11/17/2011 08:29:16 Physicians Attending Provider: UNKNOWN1, PROVIDER Primary Care [...] Upcoming Appointments Date Time Location Reason Provider 12/08/2011 15:00 [facility] f/u Federico Franklin MD Your Goals/Additional instructions: Source: [facility] POWERCHART Document Id: [id number] Miscellaneous - Michela Velasquez M.D. - 11/17/2011 8:29 AM CDT Ambulatory Depart Summary [facility] [address] [place] [address] Visit Information Name: ALEJANDRA ADHIKARI Visit Date: 11/17/2011 08:29:15 Attending Provider: UNKNOWN1, PROVIDER Primary Care Provider: [...] your provider for clarification. Additional Information: Source: [facility] POWERCHART Document Id: [id number] Miscellaneous - Sydney Frances L.P.N. 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 Pt tried to give samples to lab last week and was unsuccessful. Onset of Symptoms : a long period of time Temperature Oral : 36.8C(Converted to: 98.2DegF) Peripheral Pulse Rate : 60/min Respiratory Rate : 16/min Systolic Blood Pressure : 112mmHg Diastolic Blood Pressure : 68mmHg NIBP Mean : 83mmHg BP Location : Right upper extremity Blood Pressure Cuff Size : Regular Actual Weight : 67.6kg(Converted to: 149lb 1oz) Dosing Weight Clinic : 67.60kg VINI SYDNEY - 11/17/2011 8:03 CDT General Info Information Given By : Patient Preferred Communication Mode : Verbal Languages : German VINI SYDNEY - 11/17/2011 8:03 CDT Subjective Pain Symptoms : Yes VINI SYDNEY - 11/17/2011 8:03 CDT Pain Pain Assessment Grid Pain 1 Location : Abdomen VINI, SYDNEY - 11/17/2011 8:03 CDT Dependent Habits Tobacco Use/Currently Using : Yes Exposure to Tobacco Smoke : Patient smokes Smoking Status : Current every day smoker IVNI SYDNEY - 11/17/2011 8:03 CDT Tobacco Use Grid Type : Chewing tobacco VINI SYDNEY - 11/17/2011 8:03 CDT Caffeine Use Grid Caffeine Use : Current Type : Soft drinks Frequency : Daily Amount : 3 cans daily VINI SYDNEY - 11/17/2011 8:03 CDT Allergy Allergies (Active) NKA Estimated Onset Date: Unspecified ; Created By: IMTIAZ CLARK; Reaction Status: Active ; Category: Drug ; Substance: NKA ; Type: Allergy ; Updated By: IMTIAZ CLARK; Reviewed Date: 11/17/2011 8:02 CDT Source: [employer] Document Id: [id number] documented in this encounter Plan of Treatment Not on filedocumented as of this encounter Procedures Procedure Name Priority Date/Time Associated Diagnosis Comme nts EXTRA SST Routine 11/17/2011 8:45 AM Results f or this CDT procedure are i n the results section. AUTOMATED Routine 11/17/2011 8:45 AM Results f or this DIFFERENTIAL, B CDT procedure ar e in the results section. CBC WITH Routine 11/17/2011 8:45 AM Results f or this DIFFERENTIAL, B CDT procedure ar e in the results section. C-REACTIVE PROTEIN Routine 11/17/2011 8:45 AM Res ults for this (CRP), S/P CDT procedure are i n the results section. documented in this encounter Results (ABNORMAL) Automated Differential (11/17/2011 8:45 AM CDT) Patholo gist Method Time Signature Neutro % 41.3 (L) 44.0 - POWERCHART 69.0 Lymphocytes % 47.8 (H) 18.0 - POWERCHART 44.1 HX Woodruff % 6.1 5.0 - 11.7 POWERCHART HX Eos % 4.5 (H) 0.8 - 3.1 POWERCHART HX Baso % 0.3 0.2 - 1.4 POWERCHART Absolute 3.31 1.70 - POWERCHART Neutrophils 7.00 109L Lymphocytes 3.82 (H) 0.90 - POWERCHART 2.90 X109L Monocytes 0.49 0.30 - POWERCHART 0.90 X109L Eosinophils 0.36 0.05 - POWERCHART 0.50 X109L Absolute 0.02 0.00 - POWERCHART Basophil 0.30 X109L Specimen Anatomical Collection Method Collection Time Receive d Time (Source) Location / / Volume Laterality Blood 11/17/2011 8:45 AM 2 8:45 CDT AM CDT Michela Velasquez M.D. LAB BLOOD ADD-ON Performing Organization Address City/State/ZIP Code Phon e Number POWERCHART CBC with Differential (11/17/2011 8:45 AM CDT) P athologist Signature Leukocytes 8.0 3.5 - 10.5 POWERCHART X109L Erythrocytes 4.95 4.32 - 5.72 POWERCHART N1993O Hemoglobin 15.2 13.5 - 17.5 POWERCHART GDL Hematocrit 45.8 38.8 - 50.0 POWERCHART MCV 92.5 81.0 - 95.0 POWERCHART FL HX RDW 13.2 11.8 - 15.6 POWERCHART Platelet Count 262 150 - 450 POWERCHART X109L Specimen (Source) Anatomical Collection Method Collection Time Re ceived Time Location / / Volume Laterality Blood 11/17/2011 8:45 AM CDT Michela Velasquez M.D. LAB BLOOD ADD-ON Performing Organization Address City/State/ZIP Code Phon e Number POWERCHART EXTRA SST (11/17/2011 8:45 AM CDT) P athologist Signature HXExtra Tube Extra Tube POWERCHART Specimen (Source) Anatomical Collection Method Collection Time Re ceived Time Location / / Volume Laterality Blood 11/17/2011 8:45 AM CDT Michela Velasquez M.D. LAB HISTORICAL ORDERS Performing Organization Address City/State/ZIP Code Phon e Number POWERCHART CRP (C-Reactive Protein) (11/17/2011 8:45 AM CDT) P athologist Signature C-Reactive 0.5 <=0.8 MGDL POWERCHART Protein (CRP), S Specimen (Source) Anatomical Collection Method Collection Time Re ceived Time Location / / Volume Laterality Blood 11/17/2011 8:45 AM CDT Michela Velasquez M.D. LAB BLOOD ADD-ON Performing Organization Address City/State/ZIP Code Phon e Number POWERCHART documented in this encounter Visit Diagnoses Not on filedocumented in this encounter
--- OUTSIDE RECORDS SUMMARY | 2022-02-10 14:43 | XMS_ITS | Encounter Summary ---
:1985 Author Organization [facility] Address [address] [place] [address] Care Team Providers Name Role Phone Unavailable Primary Care Provider Unavailable Encounter Details Date Type Department Care Team Description 12/08/2011 Hospital Encounter HX [facility] Tania Franklin M.D. Social History Tobacco Use Types Packs/Day Years Used Date Smoking Tobacco: Never Assessed Sex Assigned at Date Recorded Male 10/17/2017 10:58 AM CDT documented as of this encounter Last Filed Vital Signs Vital Sign Reading Time Taken Comments Blood Pressure 120/70 12/08/2011 3:08 PM CDT Pulse 92 12/08/2011 3:08 PM CDT Temperature - - Respiratory Rate 16 12/08/2011 3:08 PM CDT Oxygen Saturation - - Inhaled Oxygen Concentration - - Weight 70.1 kg (154 lb 8.7 oz) 12/08/2011 3:08 PM CDT Height - - Body Mass Index 26.06 06/17/2011 3:07 PM CDT documented in this encounter Medications at Time of Discharge Medication Sig Dispensed Refills Start Date End Date clonazePAM (KlonoPIN) 2 Twice A Day 0 08/27/2010 mg tablet buprenorphine-naloxone Place 1 Dose under 0 11/0911/04/2019 (SUBOXONE) 8-2 mg per SL the tongue 2 (two) film times a day. documented as of this encounter Progress Notes Federico Andion M.D. - 12/08/2011 12:00 AM CDT [id number] CHIEF COMPLAINT/REASON FOR VISIT Followup on anxiety, depression and ADHD. HISTORY OF PRESENT ILLNESS This 25-year-old white male is in for a followup on his mental health issues. He states that he has been taking his medications consistently with an inability to get off of his Xanax stating that when he tried decreasing he developed all of his abdominal complaints and issues. Those have all resolved. He is now thinking more about what he does want to do for his life and trying to get off of disability. He is close to being off his role. He continues to remain drug-free really has no new concerns today. He has been doing few chores for the apartment [employer] digital [employer] food & cooking and he has been trying to workout at [employer]. He does feel that he might possibly be able to handle some type of part-time job but admits he has never figured out what he wants to do. CURRENT MEDICATIONS EMR reviewed no change. VITAL SIGNS EMR reviewed no change. PHYSICAL EXAM GENERAL: Well-developed male in no acute distress. MENTAL STATUS: He is alert, oriented and really quite appropriate, definitely much less anxious than initially. IMPRESSION/REPORT/PLAN 1) Depression and anxiety improved PLAN: Continue with the Zoloft at 150 mg a day and at this point continue with his Klonopin 2 mg twice a day and his Xanax 1 mg twice a day and if he is willing he can try again decreasing his Xanax. Will follow up in 3 months. 2) Attention deficit hyperactivity disorder. PLAN: Continue with the Adderall XR 25 mg p.o. daily. 3-month supply of that was provided. Again did spend time encouraging him to pursue possible added training that may be covered under government plans to improve his chances of successful employment in the future. Urged him at home to try working on reading and his studies skills. Federico Franklin M.D. [facility] Electronically Signed By: FEDERICO FRANKLIN MD On: 12/09/2011 06:08 PM Source: [facility] MHSDOLBEYNONRADSYS Document Id: [id number] documented in this encounter Miscellaneous Notes Miscellaneous - Federico Andino M.D. - 12/08/2011 6:03 PM CDT Ambulatory Patient Summary [address] [place] [address] Visit Information Name: ALEJANDRA ADHIKARI Current Date: 12/08/2011 18:03:42 Physicians Attending Provider: FEDERICO FRANKLIN MD Primary [...] 6 WEEK RCK Your Goals/Additional instructions: Source: [facility] POWERCHART Document Id: [id number] Miscellaneous - Federico Andino M.D. - 12/08/2011 6:03 PM CDT Ambulatory Depart Summary [facility] [address] [place] [id number] Visit Information Name: ALEJANDRA ADHIKARI Visit Date: 12/08/2011 18:03:41 Attending Provider: FEDERICO FRANKLIN MD Primary Care [...] your provider for clarification. Additional Information: Source: [facility] POWERCHART Document Id: [id number] Miscellaneous - Conversion, Historical Provider Ser - 12/08/2011 3:08 PM CDT Adult Button Bradder Intake/History Adult Button Bradder Intake/History Entered On: 12/08/2011 15:11 CDT Performed On: 12/08/2011 15:08 CDT by LIAM PIZARRO Intake Chief Complaint : f/u meds Temperature Oral : 36.7C(Converted to: 98.1DegF) Peripheral Pulse Rate : 92/min Respiratory Rate : 16/min Systolic Blood Pressure : 120mmHg Diastolic Blood Pressure : 70mmHg NIBP Mean : 87mmHg BP Location : Right upper extremity Blood Pressure Cuff Size : Large Actual Weight : 70.1kg(Converted to: 154lb 9oz) Dosing Weight Clinic : 70.10kg LIAM PIZARRO - 12/08/2011 15:08 CDT General Info Information Given By : Patient Preferred Communication Mode : Verbal Languages : Yoruba LIAM PIZARRO - 12/08/2011 15:08 CDT Subjective Pain Symptoms : Yes LIAM PIZARRO 12/08/2011 15:08 CDT Pain Pain Assessment Grid Pain 1 Location : Lower back LIAM PIZARRO 12/08/2011 15:08 CDT Dependent Habits Tobacco Use/Currently Using : Yes Exposure to Tobacco Smoke : Patient smokes Smoking Status : Current every day smoker LIAM PIZARRO - 12/08/2011 15:08 CDT Tobacco Use Grid Type : Cigarettes Cigarette Use Packs/Day : 1.0 LIAM PIZARRO 12/08/2011 15:08 CDT Alcohol Use : No LIAM PIZARRO 12/08/2011 15:08 CDT Caffeine Use Grid Caffeine Use : Current Type : Soft drinks Frequency : Daily Amount : 3 cans daily LIAM PIZARRO 12/08/2011 15:08 CDT Recreational Drug Use Grid Drug Use : None LIAM PIZARRO 12/08/2011 15:08 CDT Allergy Allergies (Active) NKA Estimated Onset Date: Unspecified ; Created By: IMTIAZ CLARK; Reaction Status: Active ; Category: Drug ; Substance: NKA ; Type: Allergy ; Updated By: IMTIAZ CLARK; Reviewed Date: 12/08/2011 15:05 CDT Source: [facility] POWERCHART Document Id: [id number] documented in this encounter Plan of Treatment Not on filedocumented as of this encounter Visit Diagnoses Not on filedocumented in this encounter
--- OUTSIDE RECORDS SUMMARY | 2022-02-10 14:43 | XMS_ITS | Encounter Summary ---
:1985 Author Organization [facility] Address [address] [place] [address] Care Team Providers Name Role Phone Unavailable Primary Care Provider Unavailable Encounter Details Date Type Department Care Team Description 04/11/2012 Hospital Encounter HX NO MAPPING Alexys Church M.D. [address], [address] [place], [place] [id number] (Wo rk) Social History Tobacco Use Types [...] nts DX CHEST AP OR PA Routine 04/11/2012 2:19 AM Resu lts for this AND LATERAL 2 VIEWS FELT STRIP FINISHER procedur e are in the results section. documented in this encounter Results DX Chest AP or PA and Lateral 2 Views (04/11/2012 2:19 AM FELT STRIP FINISHER) Anatomical Region Laterality Modality Chest N/A Radiographic Imaging Specimen (Source) Anatomical Collection Method Collection Time Re ceived Time Location / / Volume Laterality 04/11/2012 2:19 AM FELT STRIP FINISHER Addenda Addendum by Provider, Delvin Pathak 04/11/2012 2:19 AM FELT STRIP FINISHER RAD^^^OW XR Chest 2 Views 04/11/2012 02:19:29 Impressions 04/11/2012 8:48 AM FELT STRIP FINISHER Negative chest. Narrative 04/11/2012 8:48 AM FELT STRIP FINISHER EXAM: XR Chest 2 Views INDICATION: possible heart problem,feeli ng of heart fluttering,nausea COMPARISON: October 31, 2011 FINDINGS: Normal size and contour of the heart, joselito, and thoracic aorta. Clear lungs. No pulmonary vascula r congestion or pleural effusion. Procedure Note Wade Stewart M.D. / Provider, Tamra mckeon M.D. - 07/22/2016 EXAM: XR Chest 2 Views INDICATION: possible heart problem,feeli ng of heart fluttering,nausea COMPARISON: October 31, 2011 FINDINGS: Normal size and contour of the heart, joselito, and thoracic aorta. Clear lungs. No pulmonary vascula r congestion or pleural effusion. IMPRESSION: Negative chest. Shanda Ribera R.T.(R)(CT), R.T.(R) IMG DIAGNOSTIC IMAGING PROCEDURES documented in this encounter Visit Diagnoses Not on filedocumented in this encounter
--- OUTSIDE RECORDS SUMMARY | 2022-02-10 14:43 | XMS_ITS | Encounter Summary ---
:1985 Author Organization [facility] Address [address] [place] [address] Care Team Providers Name Role Phone Unavailable Primary Care Provider Unavailable Encounter Details Date Type Department Care Team Description 06/05/2012 Hospital Encounter HX NO MAPPING Dalton Zhang M.B.B.S. [address] [place], [place] [address] (Wo rk) Social History [...]
--- OUTSIDE RECORDS SUMMARY | 2022-02-10 14:43 | XMS_ITS | Encounter Summary ---
:1985 Author Organization [facility] Address [address] [place] [address] Care Team Providers Name Role Phone Unavailable Primary Care Provider Unavailable Encounter Details Date Type Department Care Team Description 07/14/2012 Hospital Encounter HX NO MAPPING Dante Mcdaniel M.D. [address], [place] [phone] (Wo rk) Social History [...]
--- OUTSIDE RECORDS SUMMARY | 2022-02-10 14:43 | XMS_ITS | Encounter Summary ---
:1985 Author Organization [facility] Address [address] [place] [address] Care Team Providers Name Role Phone Unavailable Primary Care Provider Unavailable Encounter Details Date Type Department Care Team Description 01/24/2012 Hospital Encounter HX [facility] Luis Rodriguez Jr., M.D. [address] [place], [place] [phone] (Wo rk) Social History [...] documented as of this encounter Progress Notes Triny Busby - 01/24/2012 3:21 PM CST Eye Services Clinic Exam [facility] Exam Entered On: 01/24/2012 15:46 FURNACE BRAZER Performed On: 01/24/2012 15:21 FURNACE BRAZER by TRINY BUSBY Chief Complaint and History Chief Complaint : Re-check, Other: HVF 24-2 Pain Symptoms : No Smoking Status : Current every day smoker Comment : Pt states that he feels his symptoms are getting worse. Notices when looking at a doorway that the doorway has shadows and follows him through it, as explained by pt. TRINY BUSBY - 01/24/2012 15:21 FURNACE BRAZER Optometry Exam Familty History Grid Diabetes : Grandparents Smoker : Self Glaucoma : Father TRINY BUSBY - 01/24/2012 15:21 FURNACE BRAZER Vision Testing Right Eye Vision Testing : 20/20 Left Eye Vision Testing : 20/20 TRINY BUSBY - 01/24/2012 15:38 FURNACE BRAZER Ocular Testing Comment : 3-2 3-2 -mg Comment : ELMIRA BUSBYY - 01/24/2012 15:38 FURNACE BRAZER Intraoccular Pressures Intraoccular Pressures Grid Date : 10/31/2011 CDT 10/31/2011 CDT 12/06/2011 CDT 12/06/2011 CDT Eye : RE LE RE LE Applanation : 16 16 Eye Drops : Fluress Fluress Comments : QINICKYTRINY - 01/24/2012 15:38 FURNACE BRAZER QI TRINY - 01/24/2012 15:38 FURNACE BRAZER DELIAIRISNICKYTRINY - 01/24/2012 15:38 FURNACE BRAZER DELIAIRISNICKYTRINY - 01/24/2012 15:38 FURNACE BRAZER Date : 01/24/2012 FURNACE BRAZER 01/24/2012 FURNACE BRAZER Eye : RE LE Applanation : 16 16 Eye Drops : Comments : 3:42 DELIANICKY SIMMONSNDY - 01/24/2012 15:38 FURNACE BRAZER TRINY BUSBY - 01/24/2012 15:38 FURNACE BRAZER Eye Drops Exam Other Medication Eye Drops : n/m Other Medication Eye Drops Eye : Both eyes Other Medication Eye Drops Amnt : One drop Other Medication Eye Drops Time : 15:46 FURNACE BRAZER DELIAIRISNICKYTRINY - 01/24/2012 15:38 FURNACE BRAZER Ocular Health Ocular Health Ext Rt Eye Grid Ext Rt Eye - Lids/Lashes : Normal Ext Rt Eye - Conjunctiva : Normal (Comment: [LUIS HUERTA MD - 01/24/2012 16:09 FURNACE BRAZER] ) Ext Rt Eye - Cornea : Normal Ext Rt Eye - A/C : Normal Ext Rt Eye - Iris : Normal Ext Rt Eye - Lens : Normal LUIS HUERTA MD - 01/24/2012 16:09 FURNACE BRAZER Ocular Health Ext Lt Eye Grid Ext Lt Eye - Lids/Lashes : Normal Ext Lt Eye - Conjunctiva : Normal Ext Lt Eye - Cornea : Normal Ext Lt Eye - A/C : Normal Ext Lt Eye - Iris : Normal Ext Lt Eye - Lens : Normal LUIS HUERTA MD - 01/24/2012 16:09 FURNACE BRAZER Ocular Health Int Rt Eye Grid Int Rt Eye - Vitreous : Normal Int Rt Eye - C/D : Normal (Comment: 0.2 [LUIS HUERTA MD - 01/24/2012 16:09 FURNACE BRAZER] ) Int Rt Eye - Margins : Normal Int Rt Eye - Color : Normal Int Rt Eye - Macula : Normal Int Rt Eye - Posterior Pole : Normal Int Rt Eye - Periphery : Normal Int Rt Eye - Vessels : Normal LUIS HUERTA MD - 01/24/2012 16:09 FURNACE BRAZER Ocular Health Int Lt Eye Grid Int Lt Eye - Vitreous : Normal Int Lt Eye - C/D : Normal (Comment: 0.2 [LUIS HUERTA MD - 01/24/2012 16:09 FURNACE BRAZER] ) Int Lt Eye - Margins : Normal Int Lt Eye - Color : Normal Int Lt Eye - Macula : Normal Int Lt Eye - Posterior Pole : Normal Int Lt Eye - Periphery : Normal Int Lt Eye - Vessels : Normal LUIS HUERTA MD - 01/24/2012 16:09 FURNACE BRAZER Assessment Findings : Other: HVF 24-2, flattened on left on right. Plan : Other: MRI brain and orbit, r/o optic nerve glioma left eye LUIS HUERTA MD - 01/24/2012 16:09 FURNACE BRAZER Source: [place] Document Id: [id number] ACE BRAZER documented in this encounter Miscellaneous Notes Miscellaneous - Елена Wu - 01/24/2012 4:23 PM CST MRI Screening Questionnaire MRI Screening Questionnaire Entered On: 01/24/2012 16:28 FURNACE BRAZER Performed On: 01/24/2012 16:23 FURNACE BRAZER by ЕЛЕНА WU MRI Questionnaire Previous MRI, CT, or X-rays Done : No ЕЛЕНА WU - 01/24/2012 16:23 FURNACE BRAZER MRI Cannot be Done Grid Automated Internal Cardiac Defibrillator : No Brain aneurysm clips : No Cochlear implant : No History of pacemaker : No Implants with a magnet : No Internal electrodes/wires : No Neurostimulator/Biostimulator : No [place] dea catheter : No ЕЛЕНА WU - 01/24/2012 16:23 FURNACE BRAZER Patient Weight > 350 lbs : No ЕЛЕНА WU - 01/24/2012 16:23 FURNACE BRAZER MRI Risk Factors Grid Age 65 or Older : No Diabetes (document medication) : Yes History of Kidney/Liver Transplant : No History of Renal Disease : No Hypertension : No Receiving Dialysis : No ЕЛЕНА WU - 01/24/2012 16:23 FURNACE BRAZER Creatinine/GFR Results Completed : Yes ЕЛЕНА WU - 01/24/2012 16:23 FURNACE BRAZER MRI Implants, Devices, Conditions Grid Aneurysm clip : No Bullets/BB's/Shrapnel in Body : No Tattoos/Perm Make-Up/Body Jewelry : Yes Hearing Aids/Dentures/Partial Plates : No History of cancer : No Eye Surgery/Implant : No Inner Ear Surgery/Implant : No Transdermal Med or EKG Patches : No Shunt : No Penile Implant : No Breast Tissue Dredge Captain/Implant : No Control Implants (IUD, diaphragm) : No : No (document number of weeks in Comment) : No Surgery : No Intravascular Coil, Filter or Stent : No Drug Infusion Pump : No External Pain Control Device : No Intravascular Catheter/Port : No Magnetic/Elec/Mech Activated Implant : No Prosthesis/Metal Implanted Surgical : No Metal Fragments in Body : No ЕЛЕНА WU - 01/24/2012 16:23 FURNACE BRAZER Claustrophobic : No Pain/Unable to Lay Still : No Metal In or Removed from Eyes Ever : No Form Completed : Yes Education Materials Provided : No ЕЛЕНА WU - 01/24/2012 16:23 FURNACE BRAZER [facility] Document Id: [id number] ACE BRAZER documented in this encounter Plan of Treatment Not on filedocumented as of this encounter Visit Diagnoses Not on filedocumented in this encounter
--- OUTSIDE RECORDS SUMMARY | 2022-02-10 14:43 | XMS_ITS | Encounter Summary ---
:1985 Author Organization [facility] Address [address] [place] [address] Care Team Providers Name Role Phone Unavailable Primary Care Provider Unavailable Encounter Details Date Type Department Care Team Description 07/10/2011 Hospital Encounter HX NO MAPPING Dante Mcdaniel M.D. [address] [place], [place] [phone] (Wo rk) Social History [...] Priority Date/Time Associated Diagnosis Comme nts DX HAND RIGHT 3+ Routine 07/10/2011 10:31 PM Resu lts for this VIEWS CDT procedure are i n the results section. documented in this encounter Results DX Hand Right 3+ Views (07/10/2011 10:31 PM CDT) Anatomical Region Laterality Modality Upper Extremity, Hand Right Radiographic Imagi ng Specimen (Source) Anatomical Collection Method Collection Time Re ceived Time Location / / Volume Laterality 07/10/2011 10:31 PM CDT Addenda Addendum by Provider, Delvin Pathak 07/10/2011 10:31 PM CDT RAD^^^OW XR Hand Right 3 or more views 07/10/2011 22:31:52 Impressions 07/11/2011 7:48 AM CDT Few calcific densities within the ulnar wrist soft tissues. Narrative 07/11/2011 7:48 AM CDT EXAM: XR Hand Right 3 or more views INDICATION: hand pain/ problem AGE: 25 years-old COMPARISON: None. FINDINGS: No acute fracture or subluxati on. Chronic remote healed fracture of the second metacarpal. No de generative joint disease. Within the ulnar soft tissues of the wri st just adjacent to the hamate, there are a few calcific densiti es of uncertain etiology or significance. Procedure Note Antony Perdue M.D. / ProviderLawson M.D. - 07/26/2016 EXAM: XR Hand Right 3 or more views INDICATION: hand pain/ problem AGE: 25 years-old COMPARISON: None. FINDINGS: No acute fracture or subluxati on. Chronic remote healed fracture of the second metacarpal. No de generative joint disease. Within the ulnar soft tissues of the wri st just adjacent to the hamate, there are a few calcific densiti es of uncertain etiology or significance. IMPRESSION: Few calcific densities withi n the ulnar wrist soft tissues. Sahnda Ribera R.T.(R)(CT), R.T.(R) IMG DIAGNOSTIC IMAGING PROCEDURES documented in this encounter Visit Diagnoses Not on filedocumented in this encounter
--- OUTSIDE RECORDS SUMMARY | 2022-02-10 14:43 | XMS_ITS | Encounter Summary ---
:1985 Author Organization [facility] Address [address] [place] [address] Care Team Providers Name Role Phone Unavailable Primary Care Provider Unavailable Encounter Details Date Type Department Care Team Description 10/31/2011 Hospital Encounter HX NO MAPPING Vanessa Lanza M.D. [address] [place], [place] [address] (Wo rk) Social History [...]
--- OUTSIDE RECORDS SUMMARY | 2022-02-10 14:43 | XMS_ITS | Encounter Summary ---
:1985 Author Organization [facility] Address [address] [place] [address] Care Team Providers Name Role Phone Unavailable Primary Care Provider Unavailable Encounter Details Date Type Department Care Team Description 12/26/2011 Hospital Encounter [facility]X [facility] Ynes Myrick M.D. [address] [place], [place] [address] (Wo rk) Social History Tobacco Use Types Packs/Day Years Used Date Smoking Tobacco: Never Assessed Sex Assigned at Date Recorded Male 10/17/2017 10:58 AM CDT documented as of this encounter Last Filed Vital Signs Vital Sign Reading Time Taken Comments Blood Pressure 114/60 12/26/2011 8:01 AM CDT Pulse 80 12/26/2011 8:01 AM CDT Temperature - - Respiratory Rate 16 12/26/2011 8:01 AM CDT Oxygen Saturation - - Inhaled Oxygen Concentration - - Weight 68.6 kg (151 lb 3.8 oz) 12/26/2011 8:01 AM CDT Height - - Body Mass Index 25.51 06/17/2011 3:07 PM CDT documented in this encounter Medications at Time of Discharge Medication Sig Dispensed Refills Start Date End Date clonazePAM (KlonoPIN) 2 Twice A Day 0 08/27/2010 mg tablet buprenorphine-naloxone Place 1 Dose under 0 11/0911/04/2019 (SUBOXONE) 8-2 mg per SL the tongue 2 (two) film times a day. documented as of this encounter Progress Notes Trixie Myrick M.D. - 12/26/2011 7:49 AM CDT [id number] CHIEF COMPLAINT / REASON FOR VISIT Infection, new tattoo HISTORY OF PRESENT ILLNESS Mr. Adhikari is a 26-year-old white male who got a tattoo with quite a bit more color than he usually has and it was very rapidly placed due to time constraints. He noticed quite a bit of pain and pressure with the tattoo. 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 After he got the tattoo he noticed some tenderness. Over the weekend, he had red streaks going up his arm all the way to the axilla. He wasnot having any chills or fever. The streaks seem to be getting better but he continues to have quitea bit of tenderness. CURRENT MEDICATIONS Please see today's EMR. ALLERGIES Please see today's EMR. VITAL SIGNS Please see today's EMR. PHYSICAL EXAM The volar aspect of the left forearm has a fairly large tattoo with quite a bit of red in it and a little bit of yellow. It does have a little bit of an angry look, but too difficult to tell underneaththe pigment. He does have faint lymphangitis still going up the arm, although he says it is a lot less red than it was previously. There is a little going down as well. He has some edema of the wrist. IMPRESSION / REPORT / PLAN Acute skin infection with lymphangitis, likely secondary to tattoo. PLAN: Begin Septra 2 tablets twice daily for the next 10 days, split into two tablets for his swallowing ability. He has no true allergy. We will cover MRSA as well with this. Warm packs 3 times daily to the area. If not turning around within 72 hours, appointment with his primary care provider, Dr. Riri Franklin. Trixie Myrick M.D./valencia Electronically Signed By: TRIXIE MYRICK MD On: 12/27/2011 12:12 PM Source: [facility] MHSDOLBEYNONRADSYS Document Id: [id number] documented in this encounter Miscellaneous Notes Miscellaneous - Trixie Myrick M.D. - 12/26/2011 8:29 AM CDT Ambulatory Patient Summary [facility] [address] [place] [id number] Visit Information Name: ALEJANDRA ADHIKARI Current Date: 12/26/2011 08:29:22 Physicians Attending Provider: UNKNOWN1, PROVIDER Primary Care Provider: RIRI FRANKLIN MD Your Medications Here is a list of your medications. It is important to take your medications as directed. Use a pillbox or chart to help remind you to take your medications. Please let your doctor or nurse know if you have problems taking your medications. Medication/Strength Dose Route Frequency Indications/Special Instructions/Comments sulfamethoxazole-trimethoprim (Septra 400 mg-80 mg oral tablet) 2 tab(s) Oral two times a day for 10Days dextroamphetamine-amphetamine (Adderall XR 25 mg oral capsule, [...] 6 WEEK RCK Your Goals/Additional instructions: Source: [facility] POWERCHART Document Id: [id number] Miscellaneous - Trixie Myrick M.D. - 12/26/2011 8:29 AM CDT Ambulatory Depart Summary [facility] [address] [place] [phone] Visit Information Name: ALEJANDRA ADHIKARI Visit Date: 12/26/2011 08:29:21 Attending Provider: UNKNOWN1, PROVIDER Primary Care Provider: RIRI FRANKLIN MD ALEJANDRA ADHIKARI has been given the following list of medications: Your Medications It is important to take your medications as directed. Use a pill box or chart to help remind you to take your medications. Please let your doctor or nurse know if you have problems taking your medications. Medication/Strength Dose Route Frequency Indications/Special Instructions/Comments sulfamethoxazole-trimethoprim (Septra 400 mg-80 mg oral tablet) 2 tab(s) Oral two times a day for 10Days dextroamphetamine-amphetamine (Adderall XR 25 mg oral capsule, [...] your provider for clarification. Additional Information: Source: [facility] POWERCHART Document Id: [id number] Miscellaneous - Sydney Frances L.P.N. 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 Onset of Symptoms : x 5 days Temperature Oral : 36.7C(Converted to: 98.1DegF) Peripheral Pulse Rate : 80/min Respiratory Rate : 16/min Systolic Blood Pressure : 114mmHg Diastolic Blood Pressure : 60mmHg NIBP Mean : 78mmHg Actual Weight : 68.6kg(Converted to: 151lb 4oz) Dosing Weight Clinic : 68.60kg SYDNEY FRANCES - 12/26/2011 8:01 CDT General Info Information Given By : Patient Preferred Communication Mode : Verbal Languages : Armenian SYDNEY FRANCES - 12/26/2011 8:01 CDT Subjective Pain Symptoms : Yes SYDNEY FRANCES - 12/26/2011 8:01 CDT Pain Pain Assessment Grid Pain 1 Location : Lower arm Laterality : Left SYDNEY FRANCES - 12/26/2011 8:01 CDT Dependent Habits Tobacco Use/Currently Using : Yes Exposure to Tobacco Smoke : Patient smokes Smoking Status : Current every day smoker SYDNEY FRANCES - 12/26/2011 8:01 CDT Tobacco Use Grid Type : Cigarettes Cigarette Use Packs/Day : 1.0 SYDNEY FRANCES - 12/26/2011 8:01 CDT Caffeine Use Grid Caffeine Use : Current Type : Soft drinks Frequency : Daily Amount : 3 cans daily SYDNEY FRANCES - 12/26/2011 8:01 CDT Recreational Drug Use Grid Drug Use : None SYDNEY FRANCES - 12/26/2011 8:01 CDT Allergy Allergies (Active) NKA Estimated Onset Date: Unspecified ; Created By: IMTIAZ CLARK; Reaction Status: Active ; Category: Drug ; Substance: NKA ; Type: Allergy ; Updated By: IMTIAZ CLARK; Reviewed Date: 12/26/2011 8:01 CDT Source: [facility] [employer] Document Id: [id number] documented in this encounter Plan of Treatment Not on filedocumented as of this encounter Visit Diagnoses Not on filedocumented in this encounter
--- OUTSIDE RECORDS SUMMARY | 2022-02-10 14:43 | XMS_ITS | Encounter Summary ---
:1985 Author Organization [facility] Address [address] [place] [address] Care Team Providers Name Role Phone Unavailable Primary Care Provider Unavailable Encounter Details Date Type Department Care Team Description 05/22/2012 Hospital Encounter HX [facility] Tania Franklin M.D. Social History Tobacco Use Types Packs/Day Years Used Date Smoking Tobacco: Never Assessed Sex Assigned at Date Recorded Male 10/17/2017 10:58 AM CDT documented as of this encounter Last Filed Vital Signs Vital Sign Reading Time Taken Comments Blood Pressure 90/50 05/22/2012 2:22 PM CDT Pulse 82 05/22/2012 2:22 PM CDT Temperature - - Respiratory Rate 18 05/22/2012 2:22 PM CDT Oxygen Saturation - - Inhaled Oxygen Concentration - - Weight 71.6 kg (157 lb 13.6 oz) 05/22/2012 2:22 PM CDT Height - - Body Mass Index 26.62 06/17/2011 3:07 PM CDT documented in this encounter Medications at Time of Discharge Medication Sig Dispensed Refills Start Date End Date clonazePAM (KlonoPIN) 2 Twice A Day 0 08/27/2010 mg tablet buprenorphine-naloxone Place 1 Dose under 0 11/0911/04/2019 (SUBOXONE) 8-2 mg per SL the tongue 2 (two) film times a day. documented as of this encounter Progress Notes Federico Andino M.D. - 05/22/2012 1:46 PM CDT [id number] CHIEF COMPLAINT/REASON FOR VISIT Follow up depression and anxiety and ADHD. HISTORY OF PRESENT ILLNESS This 26-year-old white male is in for a followup on his mental health issues and is needing a refill. He continues to need his clonazepam twice a day and his Xanax anywhere from one to three times a day basically averaging twice a day. 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 His other medical issues, he kind of has multiple things and then he is still having kind of episodic abdominal pain and is scheduled for endoscopy and colonoscopy through [facility] next month. His previous one was cancelled and needed to be rescheduled. Secondly, he has again been having headaches that he describes as being behind his eyes. They resolve if he lies down and sleeps. He really does not have photophobia, nausea or vomiting with these although it does sound like at times his eyes get somewhat red but he cannot absolutely tell me that is related to his headaches. He is seeing ophthalmology today. He really does not take anything for them. He just lays down and sleeps and then wakes up feeling fine. Lastly, he has had this persistent kind of rash on his face. 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 He did not try the minocycline, convinced it would not help so a referral was placed. CURRENT MEDICATIONS EMR reviewed. No change. VITAL SIGNS EMR reviewed. No change. PHYSICAL EXAMINATION GENERAL: Well-developed male in no acute distress. Neurologic exam was grossly intact. MENTAL STATUS: His PHQ-9 is coming in with a score of 4 stating things are still somewhat difficult. IMPRESSION / REPORT / PLAN 1. Attention deficit/hyperactivity disorder. PLAN: Continue Adderall XR 25 mg by mouth each day, 3 months' worth of prescriptions given. Again follow up in 3 months. 2. Anxiety. PLAN: Continue using his Klonopin 2 mg one twice a day and his Xanax 1 mg up to 2 times a day as needed for anxiety and follow up in 3 months and reviewed continuing to work on staying active and finding activities to keep him busy and not having so much time to worry about his health. 3. Depression. PLAN: He will continue with sertraline 150 mg by mouth each day. 4. Headaches. PLAN: We will await Dr. Luis Lancaster's evaluation. He does not really seem to want to take anything so at this point I just encouraged him to continue with trying to eat a healthier diet, exercise more regularly and will monitor but certainly further evaluation if they persist or increase. Federico Franklin M.D./roberto Electronically Signed By: FEDERICO FRANKLIN MD On: 05/24/2012 09:32 PM Source: [facility] MHSDOLBEYNONRADSYS Document Id: [id number] documented in this encounter Miscellaneous Notes Miscellaneous - Gracia Vanessa L.P.N. - 05/23/2012 10:47 AM CDT PHQ-9 PHQ-9 Entered On: 05/23/2012 10:47 CDT Performed On: 05/23/2012 10:47 CDT by GRACIA VANESSA PHQ-9 Little interest or pleasure in doing things : Several days Feeling down, depressed, or hopeless : Several days Trouble falling or staying asleep, or sleeping too much : Not at all Feeling tired or having little energy : [...] or dealing with others : Somewhat difficult GRACIA VANESSA - 05/23/2012 10:47 CDT Source: [facility] POWERCHART Document Id: [id number] Miscellaneous - Federico Andino M.D. - 05/22/2012 3:13 PM CDT Ambulatory Patient Summary [facility] [address] [place] [id number] Visit Information Name: ALEJANDRA ADHIKARI [facility] Number: [id number] Current Date: 05/22/2012 15:13:28 Physicians Attending Provider: FEDERICO FRANKLIN MD Primary Care Provider: FEDERICO FRANKLIN MD Your Medications Here is a list of your medications. It is important to take your medications as directed. Use a pillbox or chart to help remind you to take your medications. Please let your doctor or nurse know if you have problems taking your medications. Medication/Strength Dose Route Frequency Indications/Special Instructions/Comments clonazepam (Klonopin 2 mg oral tablet) 2 mg Oral two times a day Anxiety dextroamphetamine-amphetamine (Adderall XR 25 mg oral capsule, extended release) 25 mg Oral once a day (in the morning) ADHD alprazolam (Xanax 1 mg oral tablet) 1 mg Oral two times a day anxiety hyoscyamine (hyoscyamine 0.125 mg oral tablet) 0.125 [...] 02/27/2012 Dermatitis / Eczema NOS Active 02/27/2012 Your Upcoming Appointments Date Time Location Reason Provider No Appointments found Your Goals/Additional instructions: Source: [facility] POWERCHART Document Id: [id number] Miscellaneous - Federico Andino M.D. - 05/22/2012 3:13 PM CDT Ambulatory Depart Summary [facility] [address] [place] [address] Visit Information Name: ALEJANDRA ADHIKARI [facility] Number: [id number] Visit Date: 05/22/2012 15:13:27 Attending Provider: FEDERICO FRANKLIN MD Primary Care [...] medications. 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/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 Entered On: 05/22/2012 14:23 CDT Performed On: 05/22/2012 14:22 CDT by IVELISSE CABRAL Intake Temperature Oral : 36.7DegC(Converted to: 98.1DegF) KATIE CABRALLEY 05/22/2012 14:23 CDT Chief Complaint : Recheck med refill Peripheral Pulse Rate : 82/min Respiratory Rate : 18/min Heart Rhythm : Regular Systolic Blood Pressure : 90mmHg (LOW) Diastolic Blood Pressure : 50mmHg (LOW) NIBP Mean : 63mmHg BP Location : Right upper extremity Blood Pressure Cuff Size : Large Actual Weight : 71.6kg(Converted to: 157lb 14oz) Dosing Weight Clinic : 71.60kg SOLKADIIVELISSE 05/22/2012 14:22 CDT General Info Information Given By : Patient Languages : Slovak MARIANNAKATIEIVELISSE - 05/22/2012 14:22 CDT Subjective Pain Symptoms : No KATIE CABRALLEY 05/22/2012 14:22 CDT Dependent Habits Tobacco Use/Currently Using : Yes Exposure to Tobacco Smoke : Patient smokes Smoking Status : Current every day smoker MAXIVELISSE FRIEDMAN 05/22/2012 14:22 CDT Tobacco Use Grid Type : Cigarettes Cigarette Use Packs/Day : 1.0 IVELISSE CABRAL 05/22/2012 14:22 CDT Caffeine Use Grid Caffeine Use : Current Type : Soft drinks Frequency : Daily Amount : 3 cans daily MAXKARINAKADIIVELISSE 05/22/2012 14:22 CDT Recreational Drug Use Grid Drug Use : None MARIANNA IVELISSE 05/22/2012 14:22 CDT Allergy Allergies (Active) NKA Estimated Onset Date: Unspecified ; Created By: IMTIAZ CLARK; Reaction Status: Active ; Category: Drug ; Substance: NKA ; Type: Allergy ; Updated By: IMTIAZ CLARK; Reviewed Date: 02/27/2012 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
--- OUTSIDE RECORDS SUMMARY | 2022-02-10 14:43 | XMS_ITS | Encounter Summary ---
:1985 Author Organization [facility] Address [address] [place] [id number] Care Team Providers Name Role Phone Unavailable Primary Care Provider Unavailable Encounter Details Date Type Department Care Team Description 11/01/2012 Hospital Encounter HX [facility] Tania Franklin M.D. Social History Tobacco Use Types Packs/Day Years Used Date Smoking Tobacco: Never Assessed Sex Assigned at Date Recorded Male 10/17/2017 10:58 AM CDT documented as of this encounter Last Filed Vital Signs Vital Sign Reading Time Taken Comments Blood Pressure 106/68 11/01/2012 10:49 AM CDT Pulse 84 11/01/2012 10:49 AM CDT Temperature - - Respiratory Rate 18 11/01/2012 10:49 AM CDT Oxygen Saturation - - Inhaled Oxygen Concentration - - Weight 65.1 kg (143 lb 8.3 oz) 11/01/2012 10:49 AM CDT Height - - Body Mass Index 24.2 06/17/2011 3:07 PM CDT documented in this encounter Medications at Time of Discharge Medication Sig Dispensed Refills Start Date End Date clonazePAM (KlonoPIN) 2 Twice A Day 0 08/27/2010 mg tablet buprenorphine-naloxone Place 1 Dose under 0 11/0911/04/2019 (SUBOXONE) 8-2 mg per SL the tongue 2 (two) film times a day. documented as of this encounter Progress Notes Riri Andino M.D. - 11/01/2012 10:45 AM CDT [id number] CHIEF COMPLAINT/REASON FOR VISIT Followup on his medications and concerns about possible STD . HISTORY OF PRESENT ILLNESS This 26-year-old white male continues to quite well on his current medications. He states this is the best he has felt in as long as he can remember. He has been working out and really trying to improve his physical health. 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 He remains very anxious about the thought of trying to get a job because of his difficulty in dealing with other people. He does tell me that his provider of his Suboxone he is quite concerned about his use of Xanax, but he continues to be convinced that he cannot do without it in that he is still taking it twice a day and feels panic even with the thought of stopping. His second concern is that, a few days ago, he had some lower back discomfort and 1 or 2 episodes where he thought there was a little bit of discomfort with urination. Today, he has been fine. He has had a new sexual partner but no known exposure to any STD. He denies any penile discharge. CURRENT MEDICATIONS EMR reviewed. No change. VITAL SIGNS EMR reviewed. No change. PHYSICAL EXAMINATION GENERAL: Well-developed male in no acute distress. ABDOMEN: He has some mild tenderness primarily in the lower abdomen, but it really appears to be more related to musculoskeletal discomfort. There is no guarding, rebound, masses or organomegaly. BACK: No point tenderness over the vertebral bodies. He has some mild tenderness in the paraspinal musculature in the L4-L5 area bilaterally. No true CVA tenderness. His back had full range of motion. MENTAL STATUS: He really looks good. He is much more relaxed and definitely far less anxious. IMPRESSION/REPORT/PLAN 1. ADHD (attention deficit hyperactivity disorder). PLAN: Continue with the Adderall XR 25 mg by mouth every day. He was given 3 months. Follow up for recheck. Did check a random urine today as well. 2. Anxiety. PLAN: I did discuss that, on his current regimen, he has had minimal trips to the Emergency Room. His multiple previous issues have been under excellent control, and he is now much more functional. Once again, reviewed that, ideally, I would like him to try and just go slowly down on the Xanax, perhaps trying half a tablet for 1 of the doses a day with the understanding, if he feels his anxiety is worse, he can take the second half if needed, and he will consider that. He will continue with the Klonopin 2 mg twice a day. Also continue with the sertraline at 150 mg a day. Again, we will reassess in 3 months. 3. Dysuria. PLAN: Did check a UA and urine chlamydia. We will get back to him with those results and treat if positive. Riri Franklin M.D./jose Electronically Signed By: RIRI FRANKLIN MD On: 11/13/2012 01:58 PM Source: [facility] MHSDOLBEYNONRADSYS Document Id: [id number] documented in this encounter Miscellaneous Notes Telephone Encounter - Bebe Zhang R.N. - 12/21/2012 4:18 PM CDT Xanax- one (1) day supply left Document Contains Addenda Addendum by IVELISSE CABRAL on 10 January 2013 17:56:10 BAKER BREAD Pt didnt need to have a PA done Addendum by RIRI FRANKLIN MD on 21 December 2012 18:13:39 CDT Encouraged him to pay erazo for this month while we work on the prior auth. Addendum by LIAM PIZARRO on 21 December 2012 16:37:11 CDT From: LIAM PIZARRO (ANISHA Saini Nurse) To: RIRI FRANKLIN MD; Sent: 12/21/2012 16:37:11 CDT Subject: FW: Xanax- one (1) day supply left From: BEBE ZHANG RN To: ANISHA Saini Nurse; Sent: 12/21/2012 16:18:53 CDT Subject: Xanax- one (1) day supply left Caller is: ( [phone] ) Patient ( ) Mother ( ) Father ( ) Spouse ( ) Daughter ( ) Son ( ) Pharmacy () Other: Physician: Wilfrido Franklin Patient MRN #: Reason for Call: Message: S. This is urgent.....I want the Dr to know she should call the Pharmacist right away .....I ruben be out of Xanax after tomorrow B. Has received information from insurance that PA is needed Note was sent from Pharmacist A. Request for f/u regarding PA for med R. Please call when addressed Advice/Action: Source used: ( ) Verbalizes understanding [...] back cell phone number ( ) Source: [facility] [employer] Document Id: [id number] Electronically signed by Herrera [facility] [employer]ized [employer] Lieutenant [id number] at 08/03/2016 3:11 AM CDT Telephone Encounter - Bebe Zhang, R.N. - 12/21/2012 4:13 PM CDT PA needed for Alprazolam Document Contains Addenda Addendum by LIAM PIZARRO on 21 December 2012 16:37:00 CDT From: LIAM PIZARRO (ANISHA Saini Nurse) To: RIRI FRANKLIN MD; Sent: 12/21/2012 16:37:00 CDT Subject: FW: PA needed for Alprazolam From: BEBE ZHANG RN To: ANISHA Saini Nurse; Sent: 12/21/2012 16:13:45 CDT Subject: PA needed for Alprazolam Caller is: ( ) Patient ( ) Mother ( ) Father ( ) Spouse ( ) Daughter ( ) Son ( ) Pharmacy ( [facility] ) Other: Physician: Patient MRN #: Reason for Call: Message: S. Now....Insurance is needing a PA for the Alprazolam ........because he is taking all 3 meds- Klonopin, Adderall XR , and Alprazolam B. Pharmacist Wali spent extended length of time on phone to get this clarification. PA has already been done for Clonazeopam...Insurance does not like that he is on 2 Benzodiazipinesand Adderall natue has sent/fax the information to us...hoping to provide information or clarification - if needed A. Request for PA to be done R. Please look for and address information from natue Advice/Action: Source used: ( ) Verbalizes understanding [...] back cell phone number ( ) Source: [facility] POWERCHART Document Id: [id number] Electronically signed by Conversion, [facility] Motorized [employer] Lieutenant [id number] at 08/03/2016 3:11 AM CDT Miscellaneous - Riri Andino M.D. - 11/09/2012 1:02 PM CDT Custom Result Letter 09 November 2012 ALEJANDRA ADHIKARI [address] [place] [address] [phone] Dear ALEJANDRA ADHIKARI, Your urine was negative for any infection. It did show recent use of marijauna. It does not show recent use of your Xanax or Adderall. We need to talk about that. Please make an appointment to review these results. Result Name Current Result Normal Range UA Color STRAW 11/01/2012 UA Spec Grav <=1.005 11/01/2012 >=1.030 - UA pH 6.5 11/01/2012 8.5 - UA Protein Negative 11/01/2012 Negative - UA Glucose Negative 11/01/2012 Negative - UA Ketones (*) 15 11/01/2012 Negative - UA Bili Negative 11/01/2012 Negative - UA Urobilinogen 0.2 11/01/2012 1.0 - UA Blood Negative 11/01/2012 Negative - UA Nitrite Negative 11/01/2012 Negative - UA Leuk Est Negative 11/01/2012 Negative - UA WBC 1-3 11/01/2012 UA RBC Negative 11/01/2012 0-2 - UA Bacteria Negative 11/01/2012 Negative - UA Mucous Negative 11/01/2012 Negative - UA Epi Negative 11/01/2012 Negative - UA Casts None Seen 11/01/2012 None Seen - UA Crystals None Seen 11/01/2012 None Seen - U Phency-[place] (ng/mL) Negative 11/01/2012 Cutoff: 25 - U Opiates-[place] (ng/mL) Negative 11/01/2012 Cutoff: 300 - U ARAUZ THC-[place] (ng/mL) See Comment 11/01/2012 Cutoff: 20 - U ARAUZ Cocaine-[place] (ng/mL) Negative f0 11/01/2012 Cutoff: 150 - U ARAUZ Benzo-[place] (ng/mL) Negative 11/01/2012 Cutoff: 200 - U ARAUZ Amphe-[place] (ng/mL) Negative 11/01/2012 Cutoff: 500 - U ARAUZ Alcohol-[place] (mg/dL) Negative 11/01/2012 Cutoff: 30 - U Barbiturates-[place] (ng/mL) Negative 11/01/2012 Cutoff: 200 - C trach Amp Src-[place] URINE 11/01/2012 C trach Amp RNA-[place] Negative 11/01/2012 Negative - Sincerely, RIRI FRANKLIN [address] [place] [address] Electronic Signature Electronically Signed By: RIRI FRANKLIN MD On: 09 November 2012 This document has images extracted. Source: [facility] POWERCHART Document Id: [id number] Electronically signed by Conversion, [facility] Motorized [employer] Lieutenant [id number] at 08/03/2016 3:11 AM CDT Miscellaneous - Conversion, Historical Provider Ser - 11/01/2012 10:49 AM CDT Adult Compliance Mgr Intake/History Adult Compliance Mgr Intake/History Entered On: 11/01/2012 10:54 CDT Performed On: 11/01/2012 10:49 CDT by IVELISSE CABRAL Intake Chief Complaint : Med refill and would like to have an STD check- pt is having stinging during urination and pain Temperature Oral : 36.4 DegC(Converted to: 97.5 DegF) Peripheral Pulse Rate : 84 /min Respiratory Rate : 18 /min Heart Rhythm : Regular Systolic Blood Pressure : 106 mmHg Diastolic Blood Pressure : 68 mmHg NIBP Mean : 81 mmHg BP Location : Right upper extremity Blood Pressure Cuff Size : Large Actual Weight : 65.1 kg(Converted to: 143 lb 8 oz) Weight Source : Standing scale Dosing Weight Clinic : 65.1 kg MARIANNA IVELISSE 11/01/2012 10:49 CDT General Info Information Given By : Patient Languages : Thai MARIANNA IVELISSE 11/01/2012 10:49 CDT Subjective Pain Symptoms : Yes MARIANNAIVELISSE 11/01/2012 10:49 CDT Pain Pain Assessment Grid Pain 1 Location : Other: Penis MARIANNA IVELISSE 11/01/2012 10:49 CDT Dependent Habits Tobacco Use/Currently Using : Yes Exposure to Tobacco Smoke : Patient smokes Smoking Status : Current every day smoker MARIANNA IVELISSE 11/01/2012 10:49 CDT Tobacco Use Grid Type : Cigarettes Cigarette Use Packs/Day : 0.5 MAXIVELISSE FRIEDMAN 11/01/2012 10:49 CDT Caffeine Use Grid Caffeine Use : Current Type : Soft drinks Frequency : Daily Amount : 3 cans daily MARIANNAIVELISSE 11/01/2012 10:49 CDT Recreational Drug Use Grid Drug Use : None MAXKARINAKADIKATIEIVELISSE 11/01/2012 10:49 CDT Source: [employer] Document Id: [id number]!41 documented in this encounter Plan of Treatment Not on filedocumented as of this encounter Procedures Procedure Name Priority Date/Time Associated Comments Diagnosis DRUG ABUSE SURVEY, U Routine 11/01/2012 12:25 Res ults for this PM CDT procedure are i n the results section. ADULTERANTS SURVEY, U Routine 11/01/2012 12:25 Re sults for this PM CDT procedure are i n the results section. URINALYSIS WITH Routine 11/01/2012 12:25 Results for this MICROSCOPIC PM CDT procedure are i n the results section. C TRACH AMP SRC Routine 11/01/2012 12:17 Results for this PM CDT procedure are i n the results section. C TRACH AMP RNA Routine 11/01/2012 12:17 Results for this PM CDT procedure are i n the results section. documented in this encounter Results Adulterants Survey, Urine (11/01/2012 12:25 PM CDT) P athologist Signature HX U Adlt Sv 30.2 MGDL POWERCHART Creat-[place] Specific 1.004 POWERCHART [place], POCT, U HX U Adlt Sv 7.0 POWERCHART pH-[place] HX U Adlt Sv Negative POWERCHART Oxid-[place] Comment: Test Performed by: [facility] [address] [place] [address] Cost Controller: Phong mcknight III, M.D. Specimen Anatomical Collection Method Collection Time Receive d Time (Source) Location / / Volume Laterality Urine 11/01/2012 12:25 11/01/2012 9:41 PM CDT PM CDT Historical Provider LAB URINE ORDERABLES Performing Organization Address City/State/ZIP Code Phon e Number POWERCHART Drug Abuse Survey, Urine (11/01/2012 12:25 PM CDT) Component Value Ref Test Analysis Performed At Patholo gist Range Method Time Signature Alcohol Negative Cutoff: POWERCHART 30 MGDL HXU ARAUZ Amphe-[place] Negative Cutoff: POWERCHART 500 NGML Barbiturates Negative Cutoff: POWERCHART 200 NGML HX U ARAUZ Benzo-[place] Negative Cutoff: POWERCHART 200 NGML Cocaine Negative Cutoff: POWERCHART 150 NGML HXU Opiates-[place] Negative Cutoff: POWERCHART 300 NGML HX U Phency-[place] Negative Cutoff: POWERCHART 25 NGML Tetrahydrocannabinol See Comment Cutoff: POWERCH ART 20 NGML Comment: RESULT: Presumptive Positive The drugs listed above are detected by i mmunoassay. ??Call the lab to initiate confirmatory testing if needed. Specimens are retained in the laboratory for two weeks. This test is not intended for use in emp loyment-related testing. Test Performed by: [facility] [place] [address] Cost Controller: Phong mcknight III, M.D. Specimen (Source) Anatomical Collection Method Collection Time Re ceived Time Location / / Volume Laterality Urine 11/01/2012 12:25 PM CDT Riri Franklin M.D. LAB URINE ORDERABLES Performing Organization Address City/State/ZIP Code Phon e Number POWERCHART (ABNORMAL) Urinalysis, Complete, Includes Microscopic (11/01/2012 12:25 PM CDT) [facility] Method Time Signature Source Clean Void POWERCHART Urine HXUr Color STRAW POWERCHART Glucose Negative Negative POWERCHART HXBILIRUBIN Negative Negative POWERCHART Ketones, QL(U) 15 (A) Negative POWERCHART Specific <=1.005 >=1.030 POWERCHART [place], POCT, U pH, POCT, Urine 6.5 8.5 POWERCHART Protein, Ur, Dip Negative Negative POWERCHART Urobilinogen 0.2 1.0 POWERCHART HXNITRITE Negative Negative POWERCHART HXBLOOD Negative Negative POWERCHART Leukocyte Negative Negative POWERCHART Esterase HXUr WBC 1-3 POWERCHART Red Blood Cell Negative 0 - 2 POWERCHART Clump, Urine HXUr Bacteria Negative Negative POWERCHART HXUr Epithelial Negative Negative POWERCHART HX MUCOUS Negative Negative POWERCHART THREADS HX Ur Casts None Seen None Seen POWERCHART Crystals None Seen None Seen POWERCHART Specimen (Source) Anatomical Collection Method Collection Time Re ceived Time Location / / Volume Laterality Urine 11/01/2012 12:25 PM CDT Riri Franklin M.D. LAB URINE ORDERABLES Performing Organization Address [facility]/ZIP Code Phon e Number POWERCHART HX-C trach Amp RNA (11/01/2012 12:17 PM CDT) [facility] Method Time [facility] Chlamydia Negative POWERCHART trachomatis amplified RNA Specimen (Source) Anatomical Collection Method Collection Time Re ceived Time Location / / Volume Laterality 11/01/2012 12:17 PM CDT Narrative POWERCHART - 11/02/2012 4:30 PM CDT Test Performed by: [facility] [place] [address] Cost Controller: Phong mcknight III, M.D. Riri Franklin M.D. LAB HISTORICAL ORDERS Performing Organization Address City/State/ZIP Code Phon e Number POWERCHART HX-C trach Amp Src (11/01/2012 12:17 PM CDT) athologist [facility] HXC trach Amp URINE POWERCHART [facility] Specimen (Source) Anatomical Collection Method Collection Time Re ceived Time Location / / Volume Laterality 11/01/2012 12:17 PM CDT Riri Franklin M.D. LAB HISTORICAL ORDERS Performing Organization Address City/State/ZIP Code Phon e Number POWERCHART documented in this encounter Visit Diagnoses Not on filedocumented in this encounter Additional Health Concerns Assessment Noted Time PHQ-9 Depression Total Score: 4 05/23/2012 10:47 AM CD T documented as of this encounter
--- OUTSIDE RECORDS SUMMARY | 2022-02-10 14:43 | XMS_ITS | Encounter Summary ---
:1985 Author Organization [facility] Address [address] [place] [address] Care Team Providers Name Role Phone Unavailable Primary Care Provider Unavailable Encounter Details Date Type Department Care Team Description 12/26/2011 Hospital Encounter HX NO MAPPING John Garrison M.D. [address] [place] [address] [phone] (Wo rk) Social History Tobacco [...]
--- OUTSIDE RECORDS SUMMARY | 2022-02-10 14:43 | XMS_ITS | Encounter Summary ---
:1985 Author Organization [facility] Address [address] [place] [id number] Care Team Providers Name Role Phone Unavailable Primary Care Provider Unavailable Encounter Details Date Type Department Care Team Description 11/10/2011 Hospital Encounter HX [facility] Tania Franklin M.D. Social History Tobacco Use Types Packs/Day Years Used Date Smoking Tobacco: Never Assessed Sex Assigned at Date Recorded Male 10/17/2017 10:58 AM CDT documented as of this encounter Last Filed Vital Signs Vital Sign Reading Time Taken Comments Blood Pressure 110/66 11/10/2011 3:36 PM CDT Pulse 84 11/10/2011 3:36 PM CDT Temperature - - Respiratory Rate 20 11/10/2011 3:36 PM CDT Oxygen Saturation - - Inhaled Oxygen Concentration - - Weight 68.3 kg (150 lb 9.2 oz) 11/10/2011 3:36 PM CDT Height - - Body Mass Index 25.39 06/17/2011 3:07 PM CDT documented in this encounter Medications at Time of Discharge Medication Sig Dispensed Refills Start Date End Date clonazePAM (KlonoPIN) 2 Twice A Day 0 08/27/2010 mg tablet buprenorphine-naloxone Place 1 Dose under 0 11/0911/04/2019 (SUBOXONE) 8-2 mg per SL the tongue 2 (two) film times a day. documented as of this encounter Progress Notes Federico Andino M.D. - 11/10/2011 12:00 AM CDT [id number] CHIEF COMPLAINT/REASON FOR VISIT 1) Medication refill. 2) Abdominal pain and diarrhea. HISTORY OF PRESENT ILLNESS This 25-year-old white male is in primarily for a followup on his medications. He admits that he really feels quite good mentally on his current regime. His anxiety is much better and he is finding the addition of the Adderall also quite helpful in his concentration. He continues to take both his Klonopin and his Xanax twice a day and really feels they do different things to help his anxiety. His biggest issue is he has really not been feeling well for the past 2 weeks. He had a recent tooth pulled and prior to that had taken a Z-Ubaldo. Now for the past week he has been having diarrhea, marked abdominal cramping, nausea and just feeling tired. He does state that he has been told he has had irritable bowel previously and was recently in the emergency room after had a near syncopal episode in the office during an eye exam and evaluation then was unremarkable. Currently he states that his diarrhea has no blood in it but tells me he has had bloody diarrhea previously. He has not had a definite fever but tends to have the chills and then the sweats, particularly when he gets the abdominal cramping. CURRENT MEDICATIONS Zofran 4 mg q.8h. p.r.n. nausea Zoloft 150 mg a day Imitrex 50 mg p.r.n. migraines Adderall XR 25 mg p.o. q. day Klonopin 2 mg twice a day Xanax 1 mg twice a day Suboxone 8 mg/2 mg sublingual film twice a day. VITAL SIGNS TEMP: 36.7 degrees C RESPIRATIONS: 20 PULSE: 84 BLOOD PRESSURE: 110/66 WEIGHT: 68.3 kg PHYSICAL EXAM GENERAL: Well-developed male who appears mildly uncomfortable, complaining of abdominal discomfort. HEART: Regular rate and rhythm with no murmur. LUNGS: Clear with easy respirations. ABDOMEN: Flat. He has bowel sounds present and they sound normal. He complains really of diffuse tenderness to palpation throughout the abdomen with mild just kind of voluntary guarding. No rebound, no mass. IMPRESSION/REPORT/PLAN 1) Abdominal pain and diarrhea. PLAN: I did check a C. difficile, C-reactive protein, CBC and also with his longer-standing history of possible irritable bowel concerns, I did check the celiac profile. Information on irritable bowel was also given. Recommended that he stop all dairy products and further evaluation depending on findings and his symptoms. 2) Anxiety. PLAN: Continue with the Zoloft 150 mg a day, his Klonopin 2 mg twice a day and his Xanax 1 mg twice a day. 3) ADHD (attention-deficit hyperactivity disorder). PLAN: Continue with the Adderall XR 25 mg p.o. q. day. Federico Franklin M.D. bjw Electronically Signed By: FEDERICO FRANKLIN MD On: 11/16/2011 08:22 PM Source: [facility] MHSDOLBEYNONRADSYS Document Id: [id number] documented in this encounter Miscellaneous Notes Miscellaneous - Federico Andino M.D. - 11/21/2011 9:18 AM CDT Results Notification Document Contains Addenda Addendum by BARRETT LUGO on 24 November 2011 11:11:40 CDT Patient notified via phone today. From: FEDERICO FRANKLIN MD To: IVELISSE CABRAL Sent: 11/21/2011 09:18:35 CDT ! Show up: 11/21/2011 14:18:35 [facility] Subject: Results Notification Actions: Notify patient of results Source: [facility] POWERCHART Document Id: [id number] Electronically signed by [facility] Centermyrna Beam Builder Helper [id number] at 08/06/2016 5:27 PM CDT Miscellaneous - Federico Andino M.D. - 11/10/2011 4:18 PM CDT Ambulatory Patient Summary [facility] [address] [place] [id number] Visit Information Name: ALEJANDRA ADHIKARI Current Date: 11/10/2011 16:18:48 Physicians Attending Provider: FEDERICO FRANKLIN MD Primary [...] mg Oral once a day anxiety, depression sumatriptan (Imitrex 50 mg oral tablet) 50 mg Oral once as needed for Migraine headache repeat afterone hour if needed multivitamin (multivitamin) 1 tab Oral once a day Attention: If you have any medications at [...] No Appointments found Your Goals/Additional instructions: Source: [facility] POWERCHART Document Id: [id number] Miscellaneous - Federico Andino M.D. - 11/10/2011 4:18 PM CDT Ambulatory Depart Summary [facility] [address] [place] [address] Visit Information Name: ALEJANDRA ADHIKARI Visit Date: 11/10/2011 16:18:48 Attending Provider: FEDERICO FRANKLIN MD Primary Care [...] mg Oral once a day anxiety, depression sumatriptan (Imitrex 50 mg oral tablet) 50 mg Oral once as needed for Migraine headache repeat afterone hour if needed multivitamin (multivitamin) 1 tab Oral once a day Attention: If you have any medications at home that are not on this list, DO NOT take them until youcontact your provider for clarification. Additional Information: Source: [facility] POWERCHART Document Id: [id number] Miscellaneous - Conversion, Historical Provider Ser - 11/10/2011 3:36 PM CDT Adult Management Specialist Intake/History Adult Management Specialist Intake/History Entered On: 11/10/2011 15:40 CDT Performed On: 11/10/2011 15:36 CDT by IVELISSE CABRAL Intake Chief Complaint : Med refills, Headache check and now having some abdominal pain and not feeling right Had tooth pulled about 2 weeks ago and wondering if its infected Temperature Oral : 36.7C(Converted to: 98.1DegF) Peripheral Pulse Rate : 84/min Respiratory Rate : 20/min Heart Rhythm : Regular Systolic Blood Pressure : 110mmHg Diastolic Blood Pressure : 66mmHg NIBP Mean : 81mmHg BP Location : Right upper extremity Blood Pressure Cuff Size : Large Actual Weight : 68.3kg(Converted to: 150lb 9oz) Dosing Weight Clinic : 68.30kg MARIANNAIVELISSE 11/10/2011 15:36 CDT General Info Information Given By : Patient MARIANNA IVELISSE 11/10/2011 15:36 CDT Subjective Pain Symptoms : Yes MARIANNAIVELISSE 11/10/2011 15:36 CDT Pain Pain Assessment Grid Pain 1 Location : Abdomen Intensity : 5 MAXKARINAIVELISSE WALLIS 11/10/2011 15:36 CDT Dependent Habits Tobacco Use/Currently Using : No Exposure to Tobacco Smoke : Patient smokes Smoking Status : Former smoker IVELISSE CABRAL 11/10/2011 15:36 CDT Tobacco Use Grid Type : Chewing tobacco IVELISSE CABRAL 11/10/2011 15:36 CDT Caffeine Use Grid Caffeine Use : Current Type : Soft drinks Frequency : Daily Amount : 3 cans daily MARIANNAIVELISSE 11/10/2011 15:36 CDT Allergy Allergies (Active) NKA Estimated Onset Date: Unspecified ; Created By: IMTIAZ CLARK; Reaction Status: Active ; Category: Drug ; Substance: NKA ; Type: Allergy ; Updated By: IMTIAZ CLARK; Reviewed Date: 11/10/2011 15:35 CDT [facility] Document Id: [id number] documented in this encounter Plan of Treatment Not on filedocumented as of this encounter Procedures Procedure Name Priority Date/Time Associated Diagnosis Comme nts C DIFF SRCE Routine 11/18/2011 3:34 PM Results f or this CDT procedure are i n the results section. C. DIFFICILE TOXIN, Routine 11/18/2011 3:34 PM Re sults for this F CDT procedure are i n the results section. documented in this encounter Results C. difficile Toxin, F (11/18/2011 3:34 PM CDT) P athologist Signature C. difficile Negative POWERCHART Toxin, F Specimen (Source) Anatomical Collection Method Collection Time Re ceived Time Location / / Volume Laterality 11/18/2011 3:34 PM CDT Narrative POWERCHART - 11/19/2011 9:15 PM CDT Laboratory developed test. Test Performed by: [place] [address] Russian Language Professor: Phong mcknight III, M.D. Federico Franklin M.D. LAB MICROBIOLOGY - GENERAL O RDERABLES Performing Organization Address City/[facility] Code Phon e Number POWERCHART HX-C diff Srce (11/18/2011 3:34 PM CDT) athologist Signature HXC diff Stool POWERCHART [facility] Specimen (Source) Anatomical Collection Method Collection Time Re ceived Time Location / / Volume Laterality 11/18/2011 3:34 PM CDT Federico Franklin M.D. LAB HISTORICAL ORDERS Performing Organization Address City/State/ZIP Code Phon e Number POWERCHART documented in this encounter Visit Diagnoses Not on filedocumented in this encounter
--- OUTSIDE RECORDS SUMMARY | 2022-02-10 14:43 | XMS_ITS | Encounter Summary ---
:1985 Author Organization [facility] Address [address] [place] [address] Care Team Providers Name Role Phone Unavailable Primary Care Provider Unavailable Encounter Details Date Type Department Care Team Description 12/27/2011 Hospital Encounter HX NO MAPPING John Garrison M.D. [address] [place] [phone] (Wo rk) Social History Tobacco [...]
--- OUTSIDE RECORDS SUMMARY | 2022-02-10 14:43 | XMS_ITS | Encounter Summary ---
:1985 Author Organization [facility] Address [address] [place] [address] Care Team Providers Name Role Phone Unavailable Primary Care Provider Unavailable Encounter Details Date Type Department Care Team Description 07/16/2012 Hospital Encounter [facility]X [facility] Agueda Velasquez M.D. [address] [address] (Wo rk) Social History Tobacco Use Types Packs/Day Years Used Date Smoking Tobacco: Never Assessed Sex Assigned at Date Recorded Male 10/17/2017 10:58 AM CDT documented as of this encounter Last Filed Vital Signs Vital Sign Reading Time Taken Comments Blood Pressure 126/72 07/16/2012 3:11 PM CDT Pulse 84 07/16/2012 3:11 PM CDT Temperature - - Respiratory Rate 20 07/16/2012 3:11 PM CDT Oxygen Saturation - - Inhaled Oxygen Concentration - - Weight 70.4 kg (155 lb 3.3 oz) 07/16/2012 3:11 PM CDT Height - - Body Mass Index 26.17 06/17/2011 3:07 PM CDT documented in this encounter Medications at Time of Discharge Medication Sig Dispensed Refills Start Date End Date clonazePAM (KlonoPIN) 2 Twice A Day 0 08/27/2010 mg tablet buprenorphine-naloxone Place 1 Dose under 0 11/0911/04/2019 (SUBOXONE) 8-2 mg per SL the tongue 2 (two) film times a day. documented as of this encounter Progress Notes Michela Velasquez M.D. - 07/16/2012 3:07 PM CDT [id number] CHIEF COMPLAINT / REASON FOR VISIT Fycqxu-uytn-hckg-old male says he was doing pull-ups 2 days ago and felt like he tore a muscle or broke his left arm near the elbow. It is very sore since then. He went to the ER. Apparently they examined him, did not do x-rays. He was not too happy that they did not do x-rays and says that they basically just put him on Flexeril and Clio and sent him home with a sling. Says that the pain is actually getting worse now. Thinks the Clio is upsetting his stomach. Thinks it is the acetaminophen. He does not think he can take acetaminophen because he has a history of ulcers which were diagnosed in thepast. No other specific concerns, problems at this time. VITAL SIGNS Per EMR. PHYSICAL EXAMINATION Tenderness in the flexor compartment of the left forearm. He does not really wish to move his fingers or hand or wrist very much but he can because he is pointing at where it hurts on his right elbow at times to show me using his left hand despite the sling. We did get the sling off and there is no discoloration of any part of his forearm or elbow area. There is tenderness as noted in the flexor compartment on palpation but no tenderness over the bony structures of the elbow or forearm. No tenderness up into the upper arm at all. X-rays of the elbow were performed. There is no obvious fracture or dislocation. IMPRESSION / REPORT / PLAN Muscle strain of the left forearm. If patient actually has a history of ulcers as he says then we did discuss the fact that ibuprofen-type medicines, anti- inflammatories, are basically what we need to be avoiding. Acetaminophen should not be upsetting his stomach. It is more likely that it is the hydrocodone that is upsetting his stomach however the patient was adamant that he wanted something different to try to help with the pain control. We are going to switch him to soma and we are going to switch him to oxycodone without any acetaminophen. We did dump the rest of his Clio as he stated he did not want it anyway because it was upsetting his stomach so we dumped the rest of that for him and provided him with a prescription for some oxycodone 5 mg 1 every 6 hours as needed and some soma to replace the Flexeril. Usual precautions for soma and narcotics are given, not to drive, operate machinery, etc. though he has obviously heard this before as he is rather dismissive of those recommendations. He will follow up with his primary care physician later this week if he is not improving or if otherconcerns, problems should arise. Michela Velasquez M.D./cindi Electronically Signed By: MICHELA VELASQUEZ MD On: 07/19/2012 08:41 AM Source: [facility] MHSDOLBEYNONRADSYS Document Id: [id number] documented in this encounter Miscellaneous Notes Miscellaneous - Michela Velasquez M.D. - 07/16/2012 3:27 PM CDT Ambulatory Patient Summary [address] [address] Visit Information Name: ALEJANDRA ADHIKARI [facility] Number: [id number] Current Date: 07/16/2012 15:27:25 Physicians Attending Provider: UNKNOWN1, PROVIDER Primary Care Provider: FEDERICO FRANKLIN MD Your Medications Here is a list of your medications. It is important to take your medications as directed. Use a pillbox or chart to help remind you to take your medications. Please let your doctor or nurse know if you have problems taking your medications. Medication/Strength Dose Route Frequency Indications/Special Instructions/Comments neomycin/polymyxin B/dexamethasone ophthalmic (Maxitrol ophthalmic suspension) 1 drop(s) Eyes(Both) four times a day clonazepam (Klonopin 2 mg oral tablet) 2 [...] Upcoming Appointments Date Time Location Reason Provider 07/19/2012 09:00 [facility] f/u torFederico [facility]illen [facility] Federico Franklin MD Your Goals/Additional instructions: Source: [facility] POWERCHART Document Id: [id number] Miscellaneous - Michela Velasquez M.D. - 07/16/2012 3:27 PM CDT Ambulatory Depart Summary [facility] [address] [place] [address] Visit Information Name: ALEJANDRA ADHIKARI [facility] Number: [id number] Visit Date: 07/16/2012 15:27:24 Attending Provider: UNKNOWN1, PROVIDER Primary Care Provider: FEDERICO FRANKLIN MD LYLE ALEJANDRA ZAMBRANO has been given the following list of medications: Your Medications It is important to take your medications as directed. Use a pill box or chart to help remind you to take your medications. Please let your doctor or nurse know if you have problems taking your medications. Medication/Strength Dose Route Frequency Indications/Special Instructions/Comments neomycin/polymyxin B/dexamethasone ophthalmic (Maxitrol ophthalmic suspension) 1 drop(s) Eyes(Both) four times a day clonazepam (Klonopin 2 mg oral tablet) 2 [...] your provider for clarification. Additional Information: Source: [facility] POWERCHART Document Id: [id number] Miscellaneous - Conversion, Historical Provider Ser - 07/16/2012 3:11 PM CDT Adult Superintendent Quarry Intake/History Adult Superintendent Quarry Intake/History Entered On: 07/16/2012 15:16 CDT Performed On: 07/16/2012 15:11 CDT by UMESH ESCALANTE Intake Chief Complaint : lifting weights and felt like a muscle tore in left arm. Inside elbow is the worsepain Onset of Symptoms : 06/14/12 Temperature Oral : 36.9 DegC(Converted to: 98.4 DegF) Peripheral Pulse Rate : 84 /min Respiratory Rate : 20 /min Systolic Blood Pressure : 126 mmHg Diastolic Blood Pressure : 72 mmHg NIBP Mean : 90 mmHg BP Location : Right upper extremity Blood Pressure Cuff Size : Regular Actual Weight : 70.4 kg(Converted to: 155 lb 3 oz) Dosing Weight Clinic : 70.4 kg UMESH ESCALANTE - 07/16/2012 15:11 CDT General Info Information Given By : Patient Preferred Communication Mode : Verbal Languages : Serbian UMESH ESCALANTE - 07/16/2012 15:11 CDT Subjective Pain Symptoms : Yes UMESH ESCALANTE Julita 07/16/2012 15:11 CDT Pain Pain Assessment Grid Pain 1 Pain 2 Location : Lower arm Upper arm UMESH ESCALANTE - 07/16/2012 15:11 CDT UMESH ESCALANTE 07/16/2012 15:11 CDT Dependent Habits Tobacco Use/Currently Using : No Exposure to Tobacco Smoke : Patient smokes Smoking Status : Former smoker UMESH ESCALANTE Julita 07/16/2012 15:11 CDT Tobacco Use Grid Type : Cigarettes Cigarette Use Packs/Day : 1.0 UMESH ESCALANTE Julita 07/16/2012 15:11 CDT Caffeine Use Grid Caffeine Use : Current Type : Soft drinks Frequency : Daily Amount : 3 cans daily UMSEH ESCALANTE Julita 07/16/2012 15:11 CDT Recreational Drug Use Grid Drug Use : None UMESH ESCALANTE 07/16/2012 15:11 CDT Source: [employer] Document Id: [id number] documented in this encounter Plan of Treatment Not on filedocumented as of this encounter Procedures Procedure Name Priority Date/Time Associated Diagnosis Comme nts DX ELBOW LEFT 3+ Routine 07/16/2012 3:32 PM Resul ts for this VIEWS CDT procedure are i n the results section. documented in this encounter Results DX Elbow Left 3+ Views (07/16/2012 3:32 PM CDT) Anatomical Region Laterality Modality Upper Extremity, Elbow Left Radiographic Imag ing Specimen (Source) Anatomical Collection Method Collection Time Re ceived Time Location / / Volume Laterality 07/16/2012 3:32 PM CDT Addenda Addendum by ProviderLawson M.D. o n 07/16/2012 3:32 PM CDT RAD^^^OW XR Elbow Left 3 or more views 07/16/2012 15:32:43 Impressions 07/16/2012 4:04 PM CDT Negative left elbow. Narrative 07/16/2012 4:04 PM CDT EXAM: XR Elbow Left 3 or more views INDICATION: pain x 2 days COMPARISON: None. FINDINGS: Normal mineralization and alig nment. Procedure Note Wade Stewart M.D. / Provider, Tamra mckeon M.D. - 07/22/2016 EXAM: XR Elbow Left 3 or more views INDICATION: pain x 2 days COMPARISON: None. FINDINGS: Normal mineralization and alig nment. IMPRESSION: Negative left elbow. Aithai See R.T.(R) IMG DIAGNOSTIC IMAGING PROCE DURES documented in this encounter Visit Diagnoses Not on filedocumented in this encounter Additional Health Concerns Assessment Noted Time PHQ-9 Depression Total Score: 4 05/23/2012 10:47 AM CD T documented as of this encounter
--- OUTSIDE RECORDS SUMMARY | 2022-02-10 14:43 | XMS_ITS | Encounter Summary ---
:1985 Author Organization [facility] Address [address] [place] [address] Care Team Providers Name Role Phone Unavailable Primary Care Provider Unavailable Encounter Details Date Type Department Care Team Description 12/26/2011 Hospital Encounter HX NO MAPPING Clint Frederick M.D. [address], [place] [address] (Wo rk) Social History [...]
--- OUTSIDE RECORDS SUMMARY | 2022-02-10 14:43 | XMS_ITS | Encounter Summary ---
:1985 Author Organization [facility] Address [address] [place] [address] Care Team Providers Name Role Phone Unavailable Primary Care Provider Unavailable Encounter Details Date Type Department Care Team Description 08/15/2011 Hospital Encounter HX [facility] Tania Franklin M.D. Social History Tobacco Use Types Packs/Day Years Used Date Smoking Tobacco: Never Assessed Sex Assigned at Date Recorded Male 10/17/2017 10:58 AM CDT documented as of this encounter Last Filed Vital Signs Vital Sign Reading Time Taken Comments Blood Pressure 116/68 08/15/2011 4:14 PM CDT Pulse 72 08/15/2011 4:14 PM CDT Temperature - - Respiratory Rate 14 08/15/2011 4:14 PM CDT Oxygen Saturation - - Inhaled Oxygen Concentration - - Weight 65.5 kg (144 lb 6.4 oz) 08/15/2011 4:14 PM CDT Height - - Body Mass Index 24.35 06/17/2011 3:07 PM CDT documented in this encounter Medications at Time of Discharge Medication Sig Dispensed Refills Start Date End Date clonazePAM (KlonoPIN) 2 mg tablet Twice A Day 0 0 08/27/2010 documented as of this encounter Progress Notes Federico Andino M.D. - 08/15/2011 12:00 AM CDT [id number] CHIEF COMPLAINT/REASON FOR VISIT 1) Follow-up depression, anxiety, ADHD, and concerns about possible bipolar issues. 2) Headaches HISTORY OF PRESENT ILLNESS This 25-year-old white male is in today with a girlfriend for a followup on his psychiatric issues. He definitely does feel his mood is better. He does feel his anxiety has improved but he continues to really take his Ativan pretty much 60 per month. He states that he takes them currently not so much for overwhelming panic attacks that would have brought him to the ER previously because those have essentially resolved but more when he becomes extremely angry or just feels stressed. His main concern is that he has incredibly short anger fuse and finds that very quickly with minimal aggravating stress he just becomes exceedingly angry. He tends to punch merchant and break things and although he has been through some anger management classes previously in senior living he admits he did not pay much attention to anything. His mood is also definitely better but feels to some degree that is just related to the time of year with sunshine and the fact that he can be outside more. He has been trying to stay physically active. He definitely feels that the Adderall has improved his concentration and he has been trying to read more and definitely feels that has improved his ability to concentrate. He does continue to have episodic headaches and he is really not certain exactly how often they are occurring. He does request a refill of both his naproxen and his Zofran since both really help when he gets a headache. They had dramatically improved when he was on the beta demi but he stopped that because of concerns that it was making his heart rate too low. They are definitely less frequent than they had been and we did discuss that even the Zoloft can help prevent the migraine headaches. CURRENT MEDICATIONS EMR reviewed, no change. VITAL SIGNS EMR reviewed. PHYSICAL EXAM GENERAL: Well-developed male in no acute distress. NEUROLOGIC: He has a grossly normal motor and sensory exam. MENTAL STATUS: He is alert, oriented, appropriate. No delusional thoughts. IMPRESSION/REPORT/PLAN 1) Generalized anxiety disorder with panic attacks Plan: Increased his Zoloft to 150 mg p.o. q.day. Encouraged him to only use his Xanax if he is having the feeling like he is dying with the chest pressure, shortness of breath, and marked panic, the similar symptoms that brought him into the ER multiple times previously. Encouraged him not to use it just if he is feeling angry, distressed, or stressed out. Continue with the clonazepam twice a day but did allow him to have his 60 mg of Xanax a month if needed since he seems extremely anxious about not having that available to him. Will plan on rechecking in about 3 months after he is on the higher dose of Zoloft. 2) Attention-deficit hyperactivity disorder Plan: He definitely seems to have improved function with the Adderall and so I did provide him with 3 more months of the Adderall and again will reassess in 3 months. 3) Headaches. Plan: Encouraged him to keep a headache diary where he documents the time a day he has the headache, how severe it is, what he takes, and whether it is beneficial and also try and figure out if what he has eaten in the last 24 hours to decide if there are any foods that may be triggering these. Will plan on reassessing in a month and decide at that point whether alternate prophylactic medication is warranted. 4) Anger issues. Plan: Discussed that anger outbursts are not necessarily any specific symptom for bipolar. He is not able to make any appointments with [facility] because he missed 2 appointments and they will not take him back. Encouraged him to consider trying [facility] and I will try and investigate whether there are programs available for anger management. Encouraged him to consider checking out the library for information on anger management and encouraged him to think about the fact that although he is not in control of the situation he is certainly the one who needs to be in control of how he responds to the situation and take responsibility for his actions. I encouraged him to continue to try and see if even there were some volunteer services that he could do a couple hours a week. Suggestions were given. Also encouraged him to continue with reading and just trying to become more informed about the world in general. 45 minutes was spent with patient, 15 in assessment and 25 in consultation and discussion of meds, options, treatment recommendations. Federico Franklin M.D. akg Electronically Signed By: FEDERICO FRANKLIN MD On: 08/21/2011 09:19 AM Source: [facility] MHSDOLBEYNONRADSYS Document Id: [id number] documented in this encounter Miscellaneous Notes Miscellaneous - Federico Andino M.D. - 08/15/2011 5:11 PM CDT Ambulatory Patient Summary [place] [address] [place] [address] Visit Information Name: ALEJANDRA ADHIKARI Current Date: 08/15/2011 17:11:05 Physicians Attending Provider: FEDERICO FRANKLIN MD Primary Care Provider: FEDERICO FRANKLIN MD Your Medications Here is a list of your medications. It is important to take your medications as directed. Use a pillbox or chart to help remind you to take your medications. Please let your doctor or nurse know if you have problems taking your medications. Medication/Strength Dose Route Frequency Indications/Special Instructions/Comments naproxen (Naprosyn 500 mg oral tablet) 500 mg Oral two times a day with meals as needed for Pain ondansetron (Zofran 4 mg oral tablet) 4 mg Oral every 8 hours as needed for Nausea alprazolam (Xanax 1 mg oral tablet) 1 mg Oral two times a day as needed for Anxiety dextroamphetamine-amphetamine (Adderall XR 25 mg oral capsule, extended release) 1 cap(s) Oral once a day (in the morning) ADHD clonazepam (Klonopin 2 mg oral tablet) 2 mg Oral two times a day Anxiety sertraline (sertraline 100 mg oral tablet) 150 mg Oral once a day anxiety, depression sumatriptan (Imitrex 50 mg oral tablet) 50 mg Oral once as needed for Migraine headache repeat afterone hour if needed buprenorphine-naloxone (Suboxone 2 mg-0.5 mg sublingual tablet) 1 tab(s) Sublingual two times a day multivitamin (multivitamin) 1 tab Oral once a [...] No Appointments found Your Goals/Additional instructions: Source: [facility] POWERCHART Document Id: [id number] Federico Joy M.D. - 08/15/2011 5:11 PM CDT Ambulatory Depart Summary [facility] [address] [facility] [place] [address] Visit Information Name: ALEJANDRA ADHIKARI Visit Date: 08/15/2011 17:11:04 Attending Provider: FEDERICO FRANKLIN MD Primary Care [...] medications. Medication/Strength Dose Route Frequency Indications/Special Instructions/Comments naproxen (Naprosyn 500 mg oral tablet) 500 mg Oral two times a day with meals as needed for Pain ondansetron (Zofran 4 mg oral tablet) 4 mg Oral every 8 hours as needed for Nausea alprazolam (Xanax 1 mg oral tablet) 1 mg Oral two times a day as needed for Anxiety dextroamphetamine-amphetamine (Adderall XR 25 mg oral capsule, extended release) 1 cap(s) Oral once a day (in the morning) ADHD clonazepam (Klonopin 2 mg oral tablet) 2 mg Oral two times a day Anxiety sertraline (sertraline 100 mg oral tablet) 150 mg Oral once a day anxiety, depression sumatriptan (Imitrex 50 mg oral tablet) 50 mg Oral once as needed for Migraine headache repeat afterone hour if needed buprenorphine-naloxone (Suboxone 2 mg-0.5 mg sublingual tablet) 1 tab(s) Sublingual two times a day multivitamin (multivitamin) 1 tab Oral once a day Attention: If you have any medications at home that are not on this list, DO NOT take them until youcontact your provider for clarification. 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 Temperature Oral : 36.8C(Converted to: 98.2DegF) Peripheral Pulse Rate : 72/min Respiratory Rate : 14/min Heart Rhythm : Regular Systolic Blood Pressure : 116mmHg Diastolic Blood Pressure : 68mmHg NIBP Mean : 84mmHg BP Location : Right upper extremity Blood Pressure Cuff Size : Regular Actual Weight : 65.5kg(Converted to: 144lb 6oz) Weight Source : Standing scale Dosing Weight Clinic : 65.50kg SRI SANON - 08/15/2011 16:14 CDT Subjective Pain Symptoms : Yes GI Symptoms : Abdominal pain SRI SANON - 08/15/2011 16:14 CDT Dependent Habits Tobacco Use/Currently Using : Yes Exposure to Tobacco Smoke : Patient smokes Smoking Status : Current every day smoker SRI SANON - 08/15/2011 16:14 CDT Tobacco Use Grid Type : Cigarettes Chewing tobacco Cigarette Use Packs/Day : 1.0 SRI SANON 08/15/2011 16:14 CDT SRI SANON 08/15/2011 16:14 CDT Caffeine Use Grid Caffeine Use : Current Type : Soft drinks Frequency : Daily Amount : 3 cans daily SRI SANON 08/15/2011 16:14 CDT Allergy Allergies (Active) NKA Estimated Onset Date: Unspecified ; Created By: IMTIAZ CLARK; Reaction Status: Active ; Category: Drug ; Substance: NKA ; Type: Allergy ; Updated By: IMTIAZ CLARK; Reviewed Date: 08/15/2011 16:13 CDT [facility] Document Id: [id number] documented in this encounter Plan of Treatment Not on filedocumented as of this encounter Visit Diagnoses Not on filedocumented in this encounter
--- OUTSIDE RECORDS SUMMARY | 2022-02-10 14:43 | XMS_ITS | Encounter Summary ---
:1985 Author Organization [facility] Address [address] [place] [address] Care Team Providers Name Role Phone Unavailable Primary Care Provider Unavailable Encounter Details Date Type Department Care Team Description 04/11/2012 Hospital Encounter HX NO MAPPING Yudi Mai M.D. [address] [place] [address] [phone] (Wo rk) Social History Tobacco Use Types [...]
--- OUTSIDE RECORDS SUMMARY | 2022-02-10 14:43 | XMS_ITS | Encounter Summary ---
:1985 Author Organization [facility] Address [address] [place] [address] Care Team Providers Name Role Phone Unavailable Primary Care Provider Unavailable Encounter Details Date Type Department Care Team Description 09/28/2012 Hospital Encounter HX [facility] Niecy Felder M.D. [address] [facility], [address] [phone] (Wo rk) Social History Tobacco Use Types Packs/Day Years Used Date Smoking Tobacco: Never Assessed Sex Assigned at Date Recorded Male 10/17/2017 10:58 AM CDT documented as of this encounter Last Filed Vital Signs Vital Sign Reading Time Taken Comments Blood Pressure 102/66 09/28/2012 3:12 PM CDT Pulse - - Temperature - - Respiratory [...] a day. documented as of this encounter Consult Notes Carmela Felder M.D. - 09/28/2012 3:04 PM CDT [id number] CHIEF COMPLAINT/REASON FOR VISIT Consultation from Dr. Federico Franklin. HISTORY OF PRESENT ILLNESS This 26-year-old male is here for consultation and treatment options concerning a rash on his face. He describes it as dry skin around his facial hair, especially around his mouth. This has been going on for a few years. It is a little bit itchy at times and he gets some flaking. He uses an electric razor and keeps this hair pretty short, also shaves his head or clips his hair short. Sometimes he gets a little itchy in his ears and sometimes on his scalp. CURRENT MEDICATIONS Multivitamins. ALLERGIES None. SYSTEMS REVIEW Current problems with head and face, eyes, ears, mouth, throat, nose and sinuses, respiratory tract,cardiovascular system, gastrointestinal system, genitourinary system, musculoskeletal system, psychological system, endocrine system, hematopoietic system, nervous system were reviewed. PAST MEDICAL/SURGICAL HISTORY Headaches, depression, anxiety, stomach problems. Past problems with head and face, eyes, ears, mouth, throat, nose and sinuses, respiratory tract, cardiovascular system, gastrointestinal system, genitourinary system, musculoskeletal system, psychological system, endocrine system, hematopoietic system, nervous system were reviewed. Past surgical procedures were reviewed. SOCIAL HISTORY He is currently unemployed. He enjoys working out. He smokes. He drinks alcohol. FAMILY HISTORY Of eczema and acne. Negative for psoriasis, skin cancer, hayfever, and asthma. VITAL SIGNS BP: 102/66. PHYSICAL EXAMINATION Exam of face shows erythema and scaling throughout the mustache area and then on the chin but does not extend into the lateral finney area or the neck. There is a slight amount of scaling in the eyebrows and along the frontal hairline. ORIN of mustache area was negative. IMPRESSION/REPORT/PLAN Seborrheic dermatitis. PLAN: I gave him a pamphlet and discussed this diagnosis. I gave him a prescription for hydrocortisone lotion 2.5% to apply to all these areas every morning after he shaves. Hopefully this will keep things under control. He was told this is a chronic problem. He will follow-up again p.r.n. Patient did not desire a depart summary. Carmela Felder M.D./price cc: Federico Franklin M.D. Electronically Signed By: CARMELA FELDER MD On: 10/03/2012 05:27 PM Source: [facility] MHSDOLBEYNONRADSYS Document Id: [id number] documented in this encounter Miscellaneous Notes Miscellaneous - Carmela Felder M.D. - 09/28/2012 3:27 PM CDT Ambulatory Patient Summary [facility] [address] [place] [address] Visit Information Name: ALEJANDRA ADHIKARI [facility] Number: [id number] Current Date: 09/28/2012 15:27:59 Physicians Attending Provider: CARMELA FELDER MD Primary Care Provider: FEEDRICO FRANKLIN MD Your Medications Here is a list of your medications. It is important to take your medications as directed. Use a pillbox or chart to help remind you to take your medications. Please let your doctor or nurse know if you have problems taking your medications. Medication/Strength Dose Route Frequency Indications/Special Instructions/Comments/Notes hydrocortisone topical (hydrocortisone 2.5% topical lotion) 1 sadia Topical two times a day sertraline (sertraline 100 mg oral tablet) 150 mg Oral once a day anxiety, depression omeprazole (omeprazole 20 mg oral delayed release capsule) 20 mg Oral once a day Heartburn, ulcer alprazolam (Xanax 1 mg oral tablet) 1 mg Oral two times a day anxiety clonazepam (Klonopin 2 mg oral tablet) 2 [...] No Appointments found Your Goals/Additional instructions: Source: [facility] POWERCHART Document Id: [id number] Miscellaneous - Carmela Felder M.D. - 09/28/2012 3:27 PM CDT Ambulatory Depart Summary [facility] [address] [place] [address] Visit Information Name: ALEJANDRA ADHIKARI [facility] Number: [id number] Visit Date: 09/28/2012 15:27:58 Attending Provider: CARMELA FELDER MD Primary Care Provider: FEDERICO FRANKLIN MD ALEJANDRA ADHIKARI has been given the following list of medications: Your Medications It is important to take your medications as directed. Use a pill box or chart to help remind you to take your medications. Please let your doctor or nurse know if you have problems taking your medications. Medication/Strength Dose Route Frequency Indications/Special Instructions/Comments/Notes hydrocortisone topical (hydrocortisone 2.5% topical lotion) 1 sadia Topical two times a day sertraline (sertraline 100 mg oral tablet) 150 mg Oral once a day anxiety, depression omeprazole (omeprazole 20 mg oral delayed release capsule) 20 mg Oral once a day Heartburn, ulcer alprazolam (Xanax 1 mg oral tablet) 1 mg Oral two times a day anxiety clonazepam (Klonopin 2 mg oral tablet) 2 [...] your provider for clarification. Additional Information: Source: [facility] Keep Me Certified Document Id: [id number] Miscellaneous - Milton Jarquin C.M.A. 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 Intake/History Entered On: 09/28/2012 15:13 CDT Performed On: 09/28/2012 15:12 CDT by MILTON JARQUIN Intake Chief Complaint : dry skin on face around facial hair Systolic Blood Pressure : 102 mmHg Diastolic Blood Pressure : 66 mmHg NIBP Mean : 78 mmHg BP Location : Right upper extremity Blood Pressure Cuff Size : Regular MILTON JARQUIN - 09/28/2012 15:12 CDT General Info Information Given By : Patient Languages : Greenlandic MILTON JARQUIN - 09/28/2012 15:12 CDT Subjective Pain Symptoms : No MILTON JARQUIN - 09/28/2012 15:12 CDT Dependent Habits Tobacco Use/Currently Using : Yes Exposure to Tobacco Smoke : Patient smokes Smoking Status : Current every day smoker MILTON JARQUIN - 09/28/2012 15:12 CDT Tobacco Use Grid Type : Cigarettes Cigarette Use Packs/Day : 0.5 MILTON JARQUIN - 09/28/2012 15:12 CDT Caffeine Use Grid Caffeine Use : Current Type : Soft drinks Frequency : Daily Amount : 3 cans daily MILTON JARQUIN - 09/28/2012 15:12 CDT Recreational Drug Use Grid Drug Use : None MILTON JARQUIN - 09/28/2012 15:12 CDT Source: [facility] Keep Me Certified Document Id: [id number] documented in this encounter Plan of Treatment Not on filedocumented as of this encounter Visit Diagnoses Not on filedocumented in this encounter Additional Health Concerns Assessment Noted Time PHQ-9 Depression Total Score: 4 05/23/2012 10:47 AM CD T documented as of this encounter
--- OUTSIDE RECORDS SUMMARY | 2022-02-10 14:43 | XMS_ITS | Encounter Summary ---
:1985 Author Organization [facility] Address [address] [place] [address] Care Team Providers Name Role Phone Unavailable Primary Care Provider Unavailable Encounter Details Date Type Department Care Team Description 04/11/2012 Hospital Encounter HX NO MAPPING Alexys Church M.D. [address] [place] [address] (Wo rk) Social History Tobacco Use Types [...]
--- OUTSIDE RECORDS SUMMARY | 2022-02-10 14:43 | XMS_ITS | Encounter Summary ---
:1985 Author Organization [facility] Address [address] [place] [address] Care Team Providers Name Role Phone Unavailable Primary Care Provider Unavailable Encounter Details Date Type Department Care Team Description 06/05/2012 Hospital Encounter HX NO MAPPING John Garrison M.D. [address] [place] [phone] (Wo rk) Social History Tobacco [...]
--- OUTSIDE RECORDS SUMMARY | 2022-02-10 14:43 | XMS_ITS | Encounter Summary ---
:1985 Author Organization [facility] Address [address] [place] [address] Care Team Providers Name Role Phone Unavailable Primary Care Provider Unavailable Encounter Details Date Type Department Care Team Description 10/31/2011 Hospital Encounter HX NO MAPPING John Garrison M.D. [address] [place] [phone] (Wo rk) Social History Tobacco [...]
--- OUTSIDE RECORDS SUMMARY | 2022-02-10 14:43 | XMS_ITS | Encounter Summary ---
:1985 Author Organization [facility] Er Address [address] [place] [address] Care Team Providers Name Role Phone Unavailable Primary Care Provider Unavailable Encounter Details Date Type Department Care Team Description 02/27/2012 Hospital Encounter [facility]X [facility] Tania Franklin M.D. Social History Tobacco Use Types Packs/Day Years Used Date Smoking Tobacco: Never Assessed Sex Assigned at Date Recorded Male 10/17/2017 10:58 AM CDT documented as of this encounter Last Filed Vital Signs Vital Sign Reading Time Taken Comments Blood Pressure 110/70 02/27/2012 11:16 AM [employer] Pulse 84 02/27/2012 11:16 AM [employer] Temperature - - Respiratory Rate 18 02/27/2012 11:16 AM [employer] Oxygen Saturation - - Inhaled Oxygen Concentration - - Weight 68.9 kg (151 lb 14.4 oz) 02/27/2012 11:16 AM [employer] Height - - Body Mass Index 25.62 06/17/2011 3:07 PM CDT documented in this encounter Medications at Time of Discharge Medication Sig Dispensed Refills Start Date End Date clonazePAM (KlonoPIN) 2 Twice A Day 0 08/27/2010 mg tablet buprenorphine-naloxone Place 1 Dose under 0 11/0911/04/2019 (SUBOXONE) 8-2 mg per SL the tongue 2 (two) film times a day. documented as of this encounter Progress Notes Riri Andino M.D. - 02/27/2012 11:11 AM CST [id number] CHIEF COMPLAINT/REASON FOR VISIT 1. Follow up anxiety and ADHD. 2. Facial lesions. 3. Lesion on leg and feet. HISTORY OF PRESENT ILLNESS This 26-year-old white male is in with several issues. First he is in for a followup on his ADHD andanxiety. He does feel that he continues to do well on his current medications and does not feel thathe can tolerate weaning down on any of his anxiety medications. He does tell me that he was seen in [place] for severe abdominal pain and was given a couple of doses of Ativan, feeling that that would be a better muscle relaxant. He has seen the GI specialist and is scheduled, it sounds like, for endoscopy. He continues to try and work on reading and staying active and again is just amazed at how much better he can concentrate when he takes his medications. His second issue is he has multiple lesions on his face, primarily in his finney area. He tells me that he uses an electric razor. He does have a history of acne as well. Next, he has a rash on his right leg just below the knee that has been present for years, kind of a question of whether it is eczema versus psoriasis. He has been using just vwqt-ccs-mtalyck steroid cream and that helps some but not dramatically so. Also did have, what really sounds like, dyshidrotic eczema on his feet where he developed little dots that were very itchy and then peeled. He has been using some steroid cream on that and that does seem better now. CURRENT MEDICATIONS EMR reviewed. No change. VITAL SIGNS EMR reviewed. No change. PHYSICAL EXAMINATION GENERAL: Well-developed male in no acute distress. SKIN: On his face he has multiple nodules in the finney area that do look like some mild pseudofolliculitis garcia. Little difficult though to also state whether it may not be acne and he has more acne type lesions on the forehead and a bit on the cheeks. No lesions on his back or chest. On his left forearm his tattoo has healed nicely and there is no evidence of any cellulitis at this time. On his right knee he has about a 4 x 3 cm scaly patch that looks like either eczema but cannot completely exclude psoriasis. Remainder of his skin was clear. IMPRESSION / REPORT / PLAN 1. Attention-deficit hyperactivity disorder under adequate control Plan: Continue the Adderall XR 25 mg by mouth every day. Recheck in 3 months. 2. Anxiety Plan: Continue with the Klonopin 2 mg 1 tablet twice a day and his Xanax 1 mg twice a day along withhis sertraline 150 mg a day. Again follow up in 3 months. 3. Acne Plan: Minocin 50 mg twice a day. Reviewed acne products that would be good for sensitive skin. 4. Pseudofolliculitis garcia Plan: Information on that was provided and encouraged him to try decreasing the shaving if possible. 5. Eczema Plan: Triamcinolone 0.1% topical cream to apply to the lesions on his knee and can also use it on his feet up to 3 times a day. Discussed the chronic nature of this. Riri Franklin M.D./any Electronically Signed By: RIRI FRANKLIN MD On: 03/08/2012 09:39 PM Source: [facility] MHSDOLBEYNONRADSYS Document Id: [id number] ONE BUTTON PASTER documented in this encounter Miscellaneous Notes Telephone Encounter - Cherri Matos R.N. - 05/23/2012 8:00 AM CDT prior autorization Document Contains Addenda Addendum by IVELISSE CABRAL on 25 May 2012 09:08:21 CDT PA was faxed Addendum by GRACIA VANESSA on 23 May 2012 16:02:36 CDT Received PA from [employer] and informed patient it could take 24 to 72 hours for paper work to be processed. From: CHERRI MATOS To: ANISHA Saini Nurse; Sent: 05/23/2012 08:00:11 CDT Subject: prior autorization Caller is: ( ) Patient ( ) Mother ( ) Father ( ) Spouse ( ) Daughter ( ) Son ( [employer] ) Pharmacy () Other: Physician: Wilfrido Franklin Patient MRN #: Reason for Call: Message: S Medication Clarification about Prior authorication sent B Xanax and Klonopin both prescribed together. Insurance will not cover both. Patient will fill theclonazepam and put the xanax on file. In order to get the xanax he needs a PA so they faxed paper work over for this to be completed. A/R Any questions feel free to call them back. Advice/Action: Source used: ( ) Verbalizes understanding [...] back cell phone number ( ) Source: [facility] [employer] Document Id: [id number] Miscellaneous - Conversion, Historical Provider Ser - 04/25/2012 1:21 PM [employer] PA[employer] Med Management Multiple Rx's Document Contains Addenda Addendum by IVELISSE CABRAL on 30 April 2012 10:47:06 [employer]TON PA[employer] Submitted: Order Order: Rx Retail Pharmacy Communication Communication MISC Once Pt didnt pickle sorter Adderall Rx dated 04/26/12 or the Klonopin Rx dated Qty: 1 each Substitutions Allowed Don't Print - other reason (Rx) Signed by IVELISSE CABRAL Addendum by IVELISSE CABRAL on 30 April 2012 10:44:12 [employer] PA[employer] Pt did not pick these up as he didnt need these pharmacy sent for refills. Addendum by IVELISSE CABRAL on 26 April 2012 13:45:07 [employer] PA[employer] Routed to info desk and they will contact pt Addendum by RIRI FRANKLIN MD on 26 April 2012 13:32:02 [employer] PA[employer] From: RIRI FRANKLIN MD To: ANISHA Saini Nurse; Sent: 04/26/2012 13:32:02 [employer] PA[employer] Subject: FW: Med Management Multiple Rx's Addendum by RIRI FRANKLIN MD on 26 April 2012 13:31:01 [employer] PA[employer] Approved Order Order: clonazepam (Klonopin 2 mg oral tablet) 1 tab(s) PO 2xDay Anxiety [facility] owt Qty: 180 tab(s) Refills: 0 Print - FP12 (from [id number]) in session 29 Signed by RIRI FRANKLIN MD 04/26/2012 13:30:58 Addendum by RIRI FRANKLIN MD on 26 April 2012 13:30:49 [employer] PA[employer] Approved Order Order: dextroamphetamine-amphetamine (Adderall XR 25 mg oral capsule, extended release) 1 cap(s) PO Daily AM Qty: 30 cap(s) Refills: 0 Substitutions Allowed Print - FP12 (from [id number]) in session 29 Signed by RIRI FRANKLIN MD 04/26/2012 13:30:46 From: PRATEEK KEITA To: RIRI FRANKLIN MD; Sent: 04/25/2012 13:21:06 [employer] PA[employer] Subject: Med Management Multiple Rx's On hold pending signature Order Order: dextroamphetamine-amphetamine (Adderall XR 25 mg oral capsule, extended release) 1 cap(s) PO Daily AM Qty: 30 cap(s) Refills: 0 Substitutions Allowed Print - OWTIM02 on [id number] (from [id number]) in session 29 On hold pending signature Order Order: clonazepam (Klonopin 2 mg oral tablet) 1 tab(s) PO 2xDay Anxiety [employer] owt Qty: 180 tab(s) Refills: 0 Print - OWTIM02 on [id number] (from [id number]) in session 29 Caller is: ( ) Patient ( ) Mother ( ) Father ( ) Spouse ( ) Daughter ( ) Son ( [facility] ) Pharmacy ( ) Other: Physician: Wilfrido Franklin Patient MRN #: Reason for Call: Message: S. Refill request. B. Last refill on the Adder xr 03/27/12. Last refill on the Clonazepam 04/25/12. Last appointment 02/27/12. No pending appointment A. R. Advice/Action: Source used: ( ) Verbalizes understanding [...] back cell phone number ( ) [facility] Document Id: [id number] Miscellaneous - Riri Andino M.D. - 02/27/2012 12:04 PM [employer] Ambulatory Patient Summary [address] [address] Visit Information Name: ALEJANDRA ADHIKARI [facility] Number: [id number] Current Date: 02/27/2012 12:04:16 Physicians Attending Provider: RIRI FRANKLIN MD Primary Care Provider: RIRI FRANKLIN MD Your Medications Here is a list of your medications. It is important to take your medications as directed. Use a pillbox or chart to help remind you to take your medications. Please let your doctor or nurse know if you have problems taking your medications. Medication/Strength Dose Route Frequency Indications/Special Instructions/Comments minocycline (Minocin 50 mg oral capsule) 50 mg Oral two times a day acne dextroamphetamine-amphetamine (Adderall XR 25 mg oral capsule, extended release) 1 cap(s) Oral once a day (in the morning) ADHD clonazepam (Klonopin 2 mg oral tablet) 2 mg Oral two times a day Anxiety alprazolam (Xanax 1 mg oral tablet) 1 mg Oral two times a day anxiety triamcinolone topical (triamcinolone 0.1% topical cream) 1 sadia Topical three times a day hyoscyamine (hyoscyamine 0.125 mg oral tablet) 0.125 [...] ADHD Active 04/28/2011 Acne NOS Active 02/27/2012 Your Upcoming Appointments Date Time Location Reason Provider No Appointments found Your Goals/Additional instructions: Source: [facility] POWERCHART Document Id: [id number] [employer] PA[employer] Miscellaneous - Riri Andino M.D. - 02/27/2012 12:04 PM [employer] PA[employer] Ambulatory Depart Summary [address] [address] Visit Information Name: ALEJANDRA ADHIKARI [facility] Number: [id number] Visit Date: 02/27/2012 12:04:15 Attending Provider: RIRI FRANKLIN MD Primary Care Provider: RIRI FRANKLIN MD ALEJANDRA ADHIKARICHINO has been given the following list of medications: Your Medications It is important to take your medications as directed. Use a pill box or chart to help remind you to take your medications. Please let your doctor or nurse know if you have problems taking your medications. Medication/Strength Dose Route Frequency Indications/Special Instructions/Comments minocycline (Minocin 50 mg oral capsule) 50 mg Oral two times a day acne dextroamphetamine-amphetamine (Adderall XR 25 mg oral capsule, extended release) 1 cap(s) Oral once a day (in the morning) ADHD clonazepam (Klonopin 2 mg oral tablet) 2 mg Oral two times a day Anxiety alprazolam (Xanax 1 mg oral tablet) 1 mg Oral two times a day anxiety triamcinolone topical (triamcinolone 0.1% topical cream) 1 sadia Topical three times a day hyoscyamine (hyoscyamine 0.125 mg oral tablet) 0.125 [...] your provider for clarification. Additional Information: Source: [facility] POWERCHART Document Id: [id number] ONE [employer]TON PASTER Miscellaneous - Conversion, Historical Provider Ser - 02/27/2012 11:16 AM [employer]ONE [employer]TON PASTER Adult Special Agent Intake/History Adult Special Agent Intake/History Entered On: 02/27/2012 11:18 [employer] PA[employer] Performed On: 02/27/2012 11:16 [employer]ONE [employer] PA[employer] by IVELISSE CABRAL Intake Chief Complaint : Med review Temperature Oral : 36.8C(Converted to: 98.2DegF) Peripheral Pulse Rate : 84/min Respiratory Rate : 18/min Heart Rhythm : Regular Systolic Blood Pressure : 110mmHg Diastolic Blood Pressure : 70mmHg NIBP Mean : 83mmHg BP Location : Right upper extremity Blood Pressure Cuff Size : Large Actual Weight : 68.9kg(Converted to: 151lb 14oz) Dosing Weight Clinic : 68.90kg IVELISSE CABRAL - 02/27/2012 11:16 [employer] PA[employer] General Info Information Given By : Patient IVELISSE CABRAL - 02/27/2012 11:16 [employer] Subjective Pain Symptoms : Yes IVELISSE CABRAL - 02/27/2012 11:16 [employer] PA[employer] Pain Pain Assessment Grid Pain 1 Pain 2 Location : Neck Upper back Laterality : Bilateral Bilateral MARIANNA IVELISSE 02/27/2012 11:16 [employer] MARIANNAIVELISSE 02/27/2012 11:16 [employer] Dependent Habits Tobacco Use/Currently Using : Yes Exposure to Tobacco Smoke : Patient smokes Smoking Status : Current every day smoker MARIANNA IVELISSE 02/27/2012 11:16 [employer] Tobacco Use Grid Type : Cigarettes Cigarette Use Packs/Day : 0.3 IVELISSE CABRAL 02/27/2012 11:16 [employer] Caffeine Use Grid Caffeine Use : Current Type : Soft drinks Frequency : Daily Amount : 3 cans daily MARIANNAIVELISSE 02/27/2012 11:16 [employer] Recreational Drug Use Grid Drug Use : None SOLKADIIVELISSE 02/27/2012 11:16 [employer] PA[employer] Allergy Allergies (Active) NKA Estimated Onset Date: Unspecified ; Created By: IMTIAZ CLARK; Reaction Status: Active ; Category: Drug ; Substance: NKA ; Type: Allergy ; Updated By: IMTIAZ CLARK; Reviewed Date: 02/27/2012 11:15 [employer]ONE [employer]TON [employer] Source: [facility] [employer] Document Id: [id number] documented in this encounter Plan of Treatment Not on filedocumented as of this encounter Visit Diagnoses Not on filedocumented in this encounter
--- OUTSIDE RECORDS SUMMARY | 2022-02-10 14:43 | XMS_ITS | Encounter Summary ---
:1985 Author Organization [facility] Address [address] [place] [address] Care Team Providers Name Role Phone Unavailable Primary Care Provider Unavailable Encounter Details Date Type Department Care Team Description 05/22/2012 Hospital Encounter HX [facility] Luis Rodriguez Jr., M.D. [address], [place] [phone] (Wo rk) Social History [...] documented as of this encounter Progress Notes Conversion, Historical Provider Ser - 05/22/2012 3:28 PM CDT [facility] Services [facility] Exam [facility] Exam Entered On: 05/22/2012 15:33 CDT Performed On: 05/22/2012 15:28 CDT by JAILYN VAZ Chief Complaint and History Chief Complaint : Eye pain, Itchy eye, Photophobia, Red eye Pain Symptoms : No Smoking Status : Current every day smoker Comment : pt states for the last month both eyes, rt more, have been red, itchy, light sensitive, and painful. pt tried using Visine with no improvement. pt has been tanning lately and wonders if that contributes to symptoms? ROS-heart and lungs wnl JAILYN VAZ - 05/22/2012 15:28 CDT Optometry Exam Familty History Grid Diabetes : Grandparents Smoker : Self Glaucoma : Father JAILYN VAZ - 05/22/2012 15:28 CDT Vision Testing Right Eye Vision Testing : Without correction, 20/25, +2 Left Eye Vision Testing : Without correction, 20/25, -2 JAILYN VAZ - 05/22/2012 15:28 CDT Ocular Health Ocular Health Ext Rt Eye Grid Ext Rt Eye - Lids/Lashes : Normal Ext Rt Eye - Conjunctiva : Normal (Comment: follicles [LUIS HUERTA MD - 05/22/2012 15:41 CDT] ) Ext Rt Eye - Cornea : Normal Ext Rt Eye - A/C : Normal Ext Rt Eye - Iris : Normal Ext Rt Eye - Lens : Normal LUIS HUERTA MD - 05/22/2012 15:41 CDT Ocular Health Ext Lt Eye Grid Ext Lt Eye - Lids/Lashes : Normal Ext Lt Eye - Conjunctiva : Normal (Comment: follicles [LUIS HUERTA MD - 05/22/2012 15:41 CDT] ) Ext Lt Eye - Cornea : Normal Ext Lt Eye - A/C : Normal Ext Lt Eye - Iris : Normal Ext Lt Eye - Lens : Normal LUIS HUERTA MD - 05/22/2012 15:41 CDT Ocular Health Int Rt Eye Grid Int Rt Eye - Vitreous : Normal Int Rt Eye - C/D : Normal (Comment: 0.3 [LUIS HUERTA MD 05/22/2012 15:41 CDT] ) Int Rt Eye - Margins : Normal Int Rt Eye - Color : Normal Int Rt Eye - Macula : Normal Int Rt Eye - Posterior Pole : Normal Int Rt Eye - Periphery : Normal Int Rt Eye - Vessels : Normal LUIS HUERTA MD - 05/22/2012 15:41 CDT Ocular Health Int Lt Eye Grid Int Lt Eye - Vitreous : Normal Int Lt Eye - C/D : Normal (Comment: 0.3 [LUIS HUERTA MD - 05/22/2012 15:41 CDT] ) Int Lt Eye - Margins : Normal Int Lt Eye - Color : Normal Int Lt Eye - Macula : Normal Int Lt Eye - Posterior Pole : Normal Int Lt Eye - Periphery : Normal Int Lt Eye - Vessels : Normal LUIS HUERTA MD - 05/22/2012 15:41 CDT Assessment Findings : Other: Allergic conjunctivitis ou Plan : Other: RTO 2 weeks, prn. Maxitrol QID x 2 weeks ou LUIS HUERTA MD - 05/22/2012 15:41 CDT Source: [facility] POWERCHART Document Id: [id number] documented in this encounter Miscellaneous Notes Telephone Encounter - Jocelyn Rodriguez R.N. - 05/25/2012 12:56 PM CDT checking on P.A Document Contains Addenda Addendum by IVELISSE CABRAL on 25 May 2012 13:31:48 CDT PA was denied, informed pt. I additionally called to see if we could get this approved as he has been on this therapy for years. PA is now approved and we will be getting an approval letter. From: JOCELYN RODRIGUEZ To: ANISHA Saini Nurse; Sent: 05/25/2012 12:56:23 CDT Subject: checking on P.A Caller is: ) Patient ( ) Mother ( ) Father ( ) Spouse ( ) Daughter ( ) Son ( ) Pharmacy ( ) Other: Physician: Paulina Franklin Patient MRN #: Reason for Call: Message: S. checking on P.A for Xanax B. He called the pharmacy to check on the P.A. and the pharmacy said they are waiting on the doctor.States he really needs the Xanax and is worried it will take a long time. A. Wondering what the status is on the P.A? R. Please give a call a back. He would greatly appreciate that for a call back today. Advice/Action: Source used: ( ) Verbalizes understanding [...] phone number ( ) [facility] Document Id: [id number] Telephone Encounter - Keyla Roberts R.N. - 05/23/2012 3:51 PM CDT Prior auth needed for Xanax Document Contains Addenda Addendum by GRACIA VANESAS on 23 May 2012 16:03:01 CDT Noted and working on pa From: KEYLA ROBERTS RN To: ANISHA Saini Nurse; Sent: 05/23/2012 15:51:58 CDT Subject: Prior auth needed for Xanax Caller is: ) Patient ( ) Mother ( ) Father ( ) Spouse ( ) Daughter ( ) Son ( ) Pharmacy ( ) Other: Physician: Wilfrido Franklin Patient MRN #: Reason for Call: Message: S. Prior auth needed for Xanax B. Isn't able to get his Xanax as pharmacy said provider needs to do a prior auth. A. R. Prior auth needed Advice/Action: Source used: ( ) Verbalizes understanding [...] phone number ( ) Source: [facility] POWERCHART Document Id: [id number] Miscellaneous - Luis Huerta M.D. - 05/22/2012 5:36 PM CDT Ambulatory Patient Summary [facility] [address] [place] [address] Visit Information Name: ALEJANDRA ADHIKARI [facility] Number: [id number] Current Date: 05/22/2012 17:36:19 Physicians Attending Provider: LUIS HUERTA MD Primary Care Provider: FEDERICO FRANKLIN MD [...] No Appointments found Your Goals/Additional instructions: Source: [facility] POWERCHART Document Id: [id number] Miscellaneous - Luis Huerta M.D. - 05/22/2012 5:36 PM CDT Ambulatory Depart Summary [address] [address] Visit Information Name: ALEJANDRA ADHIKARI [facility] Number: [id number] Visit Date: 05/22/2012 17:36:18 Attending Provider: LUIS HUERTA MD Primary Care Provider: FEDERICO FRANKLIN MD [...] your provider for clarification. Additional Information: Source: [facility] POWERCHART Document Id: [id number] documented in this encounter Plan of Treatment Not on filedocumented as of this encounter Visit Diagnoses Not on filedocumented in this encounter
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
--- OUTSIDE RECORDS SUMMARY | 2022-02-10 14:43 | XMS_ITS | Encounter Summary ---
:1985 Author Organization [facility] Address [address] [place] [address] Care Team Providers Name Role Phone Unavailable Primary Care Provider Unavailable Encounter Details Date Type Department Care Team Description 07/14/2012 Hospital Encounter HX [facility] Clint Frederick M.D. [address] [address] (Wo rk) Social History Tobacco [...]
--- OUTSIDE RECORDS SUMMARY | 2022-02-10 14:44 | XMS_ITS | Encounter Summary ---
:1985 Author Organization [facility] Address [address] [place] [address] Care Team Providers Name Role Phone Unavailable Primary Care Provider Unavailable Encounter Details Date Type Department Care Team Description 06/25/2011 Hospital Encounter HX NO MAPPING Dante Mcdaniel M.D. [address] [place], [place] [phone] (Wo rk) Social History [...]
--- OUTSIDE RECORDS SUMMARY | 2022-02-10 14:44 | XMS_ITS | Encounter Summary ---
:1985 Author Organization [facility] Address [address] [place] [address] Care Team Providers Name Role Phone Unavailable Primary Care Provider Unavailable Encounter Details Date Type Department Care Team Description 08/04/2010 Hospital Encounter [facility]X [facility] Abebe Hamilton, P.A.-C. [address] [place] [address] (Wo rk) Social History Tobacco Use Types Packs/Day Years Used Date Smoking Tobacco: Never Assessed Sex Assigned at Date Recorded Male 10/17/2017 10:58 AM CDT documented as of this encounter Progress Notes Cris Hamilton - 08/04/2010 12:00 AM CDT [id number] CHIEF COMPLAINT/REASON FOR VISIT Neck injury. HISTORY OF PRESENT ILLNESS Patient presents to the clinic today saying that 30 minutes ago he was playing football, another individual jumped on up in the air and landed on top of Alejandra's head. He then fell to the ground and notes that when this all happened, he twisted his neck a little bit. He states his head did not hurt and since then he has had absolutely no headache whatsoever. He did not loose consciousness. Immediately, when he fell to the ground, for a few minutes he felt lightheaded. He saw some bright spots and felt dizzy. That now has resolved, but he now states that he just feels tired. He tells me that when he rotates his neck to the left, that his neck feels a little bit stiff. He denies any severe neck pain at this point either. In fact, he admits he does not really have significant pain at all. His muscles just feel tight and they seem to be getting a little bit tighter as time goes on and he is concerned about lightheadedness and seeing spots. CURRENT MEDICATIONS Per EMR. ALLERGIES Per EMR. VITAL SIGNS Per EMR. PHYSICAL EXAM GENERAL: Patient is alert and in no acute distress. NEURO: Cranial nerves 2-12 are grossly intact. EYES: Conjunctivae and sclerae are clear. ENT: EACs and TMs are within normal limits. Oropharynx is without erythema. Neck has no adenopathy. MUSCULOSKELETAL: He has full range of motion of cervical spine. He had a little bit of tenderness with palpation at the trapezius musculature. No pain with palpation noted on the vertebral processes on cervical spine. IMPRESSION/REPORT/PLAN IMAGING STUDIES: X-ray of the cervical spine shows no acute reading from my reading. Radiological reading is pending. 1) Neck injury. PLAN: I have given him Skelaxin to use if necessary for the next couple of days. Discussed side effects of this and the fact that this might make him a bit tired, especially with the mix of his other medications. He is to use ice and heat as directed, gentle stretching and range of motion exercises, avoid strenuous activity, and ibuprofen is encouraged. Gave him written information regarding head injuries. If he starts any of the alarming signs as discussed today, or noted in the handout, he needs to be seen promptly. He is comfortable with this plan. Sary Adler Electronically Signed By: CRIS HAMILTON PA On: 08/11/2010 10:02 AM Source: [facility] MHSDOLBEYNONRADSYS Document Id: [id number] documented in this encounter Miscellaneous Notes Miscellaneous - Cris Hamilton - 08/04/2010 4:17 PM CDT Ambulatory Patient Summary [facility] [address] [place] [address] Visit Information Name: ALEJANDRA ALVARENGA Current Date: 08/04/2010 16:17:26 Primary Care Provider: BARRETT NIEVES Your Medications Here is a list of your medications. It is important to take your medications as directed. Use a pillbox or chart to help remind you to take your medications. Please let your doctor or nurse know if you have problems taking your medications. Medication/Strength Dose Route Frequency Indications/Special Instructions/Comments metaxalone (Skelaxin 400 mg oral tablet) 1 tab Oral three times a day as needed for Muscle spasm tramadol (Ultram 50 mg oral tablet) 1-2 tabs Oral every 6-8 hours as needed for Pain nicotine (nicotine 2mg oral transmucosal gum) 2 mg Transmucosal every 2 hours nicotine replacement clonazepam (Klonopin 2 mg oral tablet) 1 tab(s) Oral two times a day managed by Glenn Miramontes at [facility] naproxen (Naprosyn 500 mg oral tablet) 500 mg Oral two times a day with meals as needed for Pain sumatriptan (Imitrex 50 mg oral tablet) 50 mg Oral once as needed for Migraine headache repeat afterone hour if needed ondansetron (Zofran) 4 mg Oral every 8 hours as needed for Nausea buprenorphine-naloxone (Suboxone 2 mg-0.5 mg sublingual tablet) 1 tab(s) Sublingual two times a day multivitamin (multivitamin) 1 tab Oral once a day sertraline (Zoloft 50 mg oral tablet) 1 tab(s) Oral once a day managed by Glenn Miramontes at [facility] Your Allergies & Intolerances Substance Reaction Symptoms Category Comments NKA Drug Your Problem List Problem Status Onset Comments Polysubstance dependence, unspecified Active Headache, migraine NOS Active Myopia Active 03/10/2010 Chronic sinusitis NOS Active Tobacco abuse Active Your Recommendations We want to make sure you get the tests, immunizations, and guidance you need to stay healthy. Here is a customized list of recommendations, based on information we have in your medical record. Your doctor may have additional recommendations for you, based on your personal medical history and risk factors. You can help us by calling us to make an appointment when you are due for your tests. Additional information regarding recommendations: Test/Treatment Last Done Next Due Additional Information Lipid Panel every 5 years Age 20-75 08/04/2010 Checks blood for good (HDL) and bad (LDL) cholesterol. Know your numbers, they are one indicator of your risk for heart attack and stroke. Vaccine: Tetanus every 10 years 08/04/2010 Immunization to help prevent you from getting the seriousdisease Tetanus (Lockjaw). Your Upcoming Appointments Date Time Location Reason Provider 08/09/2010 14:00 [facility] 09/29/2010 15:30 [facility] Urology discuss infertility concerns Teodoro Wood MD Your Goals/Additional instructions: Source: [facility] POWERCHART Document Id: [id number] Electronically signed by Herrera [facility] Manufacturing Controls Engineer [id number] at 08/07/2016 8:55 PM CDT Miscellaneous - Cris Hamilton - 08/04/2010 4:17 PM CDT Ambulatory Depart Summary [facility] [address] [place] [address] Visit Information Name: ALEJANDRA ALVARENGA Current Date: 08/04/2010 16:17:24 Primary Care Provider: BARRETT NIEVES ALEJANDRA ALVARENGA has been given the following list of medications: Your Medications It is important to take your medications as directed. Use a pill box or chart to help remind you to take your medications. Please let your doctor or nurse know if you have problems taking your medications. Medication/Strength Dose Route Frequency Indications/Special Instructions/Comments metaxalone (Skelaxin 400 mg oral tablet) 1 tab Oral three times a day as needed for Muscle spasm tramadol (Ultram 50 mg oral tablet) 1-2 tabs Oral every 6-8 hours as needed for Pain nicotine (nicotine 2mg oral transmucosal gum) 2 mg Transmucosal every 2 hours nicotine replacement clonazepam (Klonopin 2 mg oral tablet) 1 tab(s) Oral two times a day managed by Glenn Miramontes at [facility] naproxen (Naprosyn 500 mg oral tablet) 500 mg Oral two times a day with meals as needed for Pain sumatriptan (Imitrex 50 mg oral tablet) 50 mg Oral once as needed for Migraine headache repeat afterone hour if needed ondansetron (Zofran) 4 mg Oral every 8 hours as needed for Nausea buprenorphine-naloxone (Suboxone 2 mg-0.5 mg sublingual tablet) 1 tab(s) Sublingual two times a day multivitamin (multivitamin) 1 tab Oral once a day sertraline (Zoloft 50 mg oral tablet) 1 tab(s) Oral once a day managed by Glenn Miramontes at [facility] Additional Information: Yes - Current list of reconciled medications is provided and explained to the patient and/or family, guardian/caregiver. 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 Intake/History Entered On: 08/04/2010 15:13 CDT Performed On: 08/04/2010 15:11 CDT by MASOUD REYES Chief Complaint: Injured neck playing football, saw spots, got lightheaded, is still dizzy Onset of Symptoms: 30 minutes ago Temperature Oral: 36.7C(Converted to: 98.1DegF) Peripheral Pulse Rate: 88/min Respiratory Rate: 16/min Systolic Blood Pressure: 92mmHg Diastolic Blood Pressure: 62mmHg NIBP Mean: 72mmHg BP Location: Right upper extremity Actual Weight: 67.500kg(Converted to: 148lb 13oz) Dosing Weight Clinic: 67.50kg MASOUD REYES 08/04/2010 15:11 CDT Subjective Pain Symptoms: Yes MASOUD REYES 08/04/2010 15:11 CDT Dependent Habits Tobacco Use/Currently Using: Yes Exposure to Tobacco Smoke: Patient smokes MASOUD REYES 08/04/2010 15:11 CDT Tobacco Use Grid Type: Cigarettes Chewing tobacco Cigarette Use Packs/Day: 1.0 MASOUD REYES 08/04/2010 15:11 CDT MASOUD REYES 08/04/2010 15:11 CDT Caffeine Use Grid Caffeine Use: None MASOUD REYES 08/04/2010 15:11 CDT Allergy Allergies (Active) NKA Estimated Onset Date: Unspecified ; Created By: IMTIAZ CLARK; Reaction Status: Active ; Category: Drug ; Substance: NKA ; Type: Allergy ; Updated By: IMTIAZ CLARK; Reviewed Date: 08/04/2010 15:11 CDT Source: [facility] Idhasoft Document Id: [id number] CDT!27 documented in this encounter Plan of Treatment Not on filedocumented as of this encounter Procedures Procedure Name Priority Date/Time Associated Diagnosis Comme nts DX CERVICAL SPINE Routine 08/04/2010 3:43 PM Resu lts for this 4-5 VIEWS CDT procedure are i n the results section. documented in this encounter Results DX Cervical Spine 4-5 Views (08/04/2010 3:43 PM CDT) Anatomical Region Laterality Modality Cervical Spine N/A Radiographic Imaging Specimen (Source) Anatomical Collection Method Collection Time Re ceived Time Location / / Volume Laterality 08/04/2010 3:43 PM CDT Addenda Addendum by Provider, Delvin Pathak 08/04/2010 3:43 PM CDT RAD^^^OW XR Cervical Spine 4 views 08/04/2010 15:43:06 Narrative 08/04/2010 4:27 PM CDT Cervical spine. INDICATION Injury, rule out fracture. FINDINGS Moderate prominence of the prevertebral soft tissues of the lower cervical spine; which may suggest underlying occu lt anterior longitudinal ligament injury versus normal anatomic variation; physical exam correlation is recommended. Maintained anatomic alignment. ??Maintai josé miguel vertebral body and disk space heights. No appreciable fractures. ??I If clinically indicated dedicated MRI or CT of the cervical spine may be helpful for evaluation of occult fractur e; if there is concern for occult ligamentous injury, MRI of the cervical spine would be more optimal. Abdiel Stein, ?? jws ?D: 0 08/04/2010T: 08/04/2010 04:27 pm M.D. ? THIS IS AN ELEC TRONICALLY VERIFIED REPORT 08/04/2010 4:27 PM: ??Cristina Schroeder Procedure Note Abdiel Stein M.D. / Provider, Tamra mckeon M.D. - 07/27/2016 Cervical spine. INDICATION Injury, rule out fracture. FINDINGS Moderate prominence of the prevertebral soft tissues of the lower cervical spine; which may suggest underlying occu lt anterior longitudinal ligament injury versus normal anatomic variation; physical exam correlation is recommended. Maintained anatomic alignment. Maintaine d vertebral body and disk space heights. No appreciable fractures. I If clinically indicated dedicated MRI or CT of the cervical spine may be helpful for evaluation of occult fractur e; if there is concern for occult ligamentous injury, MRI of the cervical spine would be more optimal. kermit Schroeder T: 04:27 pm Delvin THIS IS AN ELECTRONICALLY VERIFIED REPORT 08/04/2010 4:27 PM: Abdiel Stein M.D. Yamilet Hinds(Willie) [facility] DIAGNOSTIC IMAGING PROCE ELISSA documented in this encounter Visit Diagnoses Not on filedocumented in this encounter Additional Health Concerns Assessment Noted Time PHQ-9 Depression Total Score: 8 11/02/2009 12:03 PM CD T documented as of this encounter
--- OUTSIDE RECORDS SUMMARY | 2022-02-10 14:44 | XMS_ITS | Encounter Summary ---
:1985 Author Organization [facility] Address [address] [place] [address] Care Team Providers Name Role Phone Unavailable Primary Care Provider Unavailable Encounter Details Date Type Department Care Team Description 04/27/2011 Hospital Encounter HX NO MAPPING John Garrison M.D. 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
--- OUTSIDE RECORDS SUMMARY | 2022-02-10 14:44 | XMS_ITS | Encounter Summary ---
:1985 Author Organization [facility] Address [address] [place] [address] Care Team Providers Name Role Phone Unavailable Primary Care Provider Unavailable Encounter Details Date Type Department Care Team Description 09/29/2010 Hospital Encounter HX [facility] Ramírez Wood M.D. [address] [phone] (Wo rk) Social History Tobacco Use Types [...] encounter Progress Notes Ramírez Wood M.D. - 09/29/2010 12:00 AM CDT [id number] CHIEF COMPLAINT/REASON FOR VISIT Possible infertility. HISTORY OF PRESENT ILLNESS This is a 24-year-old male who has concerns that he may have infertility. He points out that he is not interested in having children now but would like to have children at some point in the future. In his lifetime he has had many sexual partners but two of them have been for extended periods of time, one for 1 year and one for 3 or 4 years. During that time he had multiple episodes of unprotected sex and has not fathered a child. The partner who he had for several years went on to have another partner and promptly got . He is not aware of any congenital issues that run in the family. His urological history is remarkable for having an orchiopexy as a child for an undescended testis. The patient initially told me it was on his left side; however, during the course of his exam (see below) it was determined it was on the right side. Patient also had cystoscopy several years ago following a urinary tract infection. He states that ever since that time his urination will spray or be split. However, this occurs intermittently and does not occur in the same pattern. His stream is somewhat strong. He does have some hesitancy, sense of incomplete voiding, some delay in starting, some postvoid dribbling. He does not have any hematuria or dysuria at this time. Patient is in a hurry today. He called for a ride and does not want to have a complete evaluation or cystoscopy performed today. PAST MEDICAL / SURGICAL HISTORY 1) History of polysubstance abuse including heroine and tobacco use. 2) History of chronic sinusitis. 3) Headaches. CURRENT MEDICATIONS Reviewed and no changes per EMR. ALLERGIES Reviewed and no changes per EMR. FAMILY HISTORY Both parents are 50, alive and well. He has one sibling and a half-brother and half-sister that are all alive and well. SOCIAL HISTORY The patient is single. He smokes 1 pack a day and has been doing so for 10 years. He quit alcohol 3-1/2 years ago. He has not used any recreational drugs for 3-1/2 years. He is unemployed. SYSTEMS REVIEW See Personal History Form dated 09/29/2010. VITAL SIGNS TEMP: 37.3 degreesC PULSE: 64 BLOOD PRESSURE: 100/64 PHYSICAL EXAM GENERAL: The patient is well nourished, well developed and in no apparent distress. There are no communication barriers. He is alert and oriented. HEAD: No abnormality of appearance. No facial abnormalities. ENT: No neck masses. THYROID: No thyroid enlargement. HEART: Regular rate and rhythm. Abdominal aorta is not palpable. Femoral pulses are 2+ and equal bilaterally. No peripheral cyanosis or edema. LUNGS: Normal respiratory movements. No shortness of breath. ABDOMEN: Flat and nondistended. No guarding. No tenderness. No ascites. No hepatosplenomegaly. Kidneys are not palpable. Bladder size is normal. There are no ventral hernias. There are no inguinal hernias. 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 There is evidence of a right-sided orchiopexy with an incision in the inguinal region and on the scrotum creating a subdartos pocket. Scrotum: No rashes. No hydroceles or spermatoceles are present. No palpable varicocele is noted. Testes: Both testes are descended. They are without masses or tenderness. Each testis is of normal size and consistency. Epididymides: Each epididymis is of normal size, without masses, without tenderness or signs of epididymitis. Both the right and left vas deferens are palpable. Perineum: Unremarkable. There are no obvious skin tags, condylomata or other lesions. SPINE: No spinal tenderness. No costovertebral angle tenderness. 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 2) Status post right orchiopexy for an undescended testis. 3) Possible bladder outlet obstruction symptoms. PLAN: Make arrangements for him to do a semen analysis, FSH and return to the clinic to review the results. At that time we will also do a uroflow and residual. If this is abnormal would consider doing a cystoscopy. He is reminded that he needs to abstain for a minimum of 3 days and ideally up to 5 days for the semen analysis. He is also asked to come in with a full bladder when he returns to the clinic. These instructions are provided in written form to the patient. Ramírez Wood M.D. bft cc: Barrett Nieves P.A.-C. Electronically Signed By: RAMÍREZ WOOD MD On: 10/04/2010 09:03 AM Source: [facility] MHSDOLBEYNONRADSYS Document Id: [id number] documented in this encounter Miscellaneous Notes Miscellaneous - Ramírez Wood M.D. - 09/29/2010 5:06 PM CDT Ambulatory Patient Summary [facility] [address] [place] [id number] Visit Information Name: ALEJANDRA ADHIKARI Current Date: 09/29/2010 17:06:32 Primary Care Provider: BARRETT NIEVES Your Medications [...] 2 mg Oral two times a day sertraline (Zoloft 50 mg oral tablet) 50 mg Oral once a day orphenadrine (Norflex 100 mg oral tablet, extended release) 1 tab Oral two times a day as needed forMuscle spasm tramadol (Ultram 50 mg oral tablet) 1-2 tabs Oral every 6-8 hours as needed for Pain nicotine (nicotine 2mg oral transmucosal gum) 2 mg Transmucosal every 2 hours nicotine replacement naproxen (Naprosyn 500 mg oral tablet) 500 [...] (multivitamin) 1 tab Oral once a day Your Allergies & Intolerances Substance Reaction Symptoms [...] Lipid Panel every 5 years Age 20-75 09/29/2010 Checks blood for good (HDL) and bad (LDL) cholesterol. Know your numbers, they are one indicator of your risk for heart attack and stroke. Vaccine: Tetanus every 10 years 09/29/2010 Immunization to help prevent you from getting the seriousdisease Tetanus (Lockjaw). Your Upcoming Appointments Date Time Location Reason Provider 10/13/2010 15:50 [facility] Lab 10/13/2010 16:00 [facility] rck flow labs Ramírez Wood MD Your Goals/Additional instructions: Source: [facility] POWERCHART Document Id: [id number] Electronically signed by Herrera [facility] Staff Attorney [id number] at 08/07/2016 3:03 PM CDT Miscellaneous - Ramírez Wood M.D. - 09/29/2010 5:06 PM CDT Ambulatory Depart Summary [facility] [address] [place] [address] Visit Information Name: ALEJANDRA ADHIKARI Current Date: 09/29/2010 17:06:31 Primary Care Provider: BARRETT NIEVES ALEJANDRA ADHIKARI has been given the following [...] 2 mg Oral two times a day sertraline (Zoloft 50 mg oral tablet) 50 mg Oral once a day orphenadrine (Norflex 100 mg oral tablet, extended release) 1 tab Oral two times a day as needed forMuscle spasm tramadol (Ultram 50 mg oral tablet) 1-2 tabs Oral every 6-8 hours as needed for Pain nicotine (nicotine 2mg oral transmucosal gum) 2 mg Transmucosal every 2 hours nicotine replacement naproxen (Naprosyn 500 mg oral tablet) 500 [...] (multivitamin) 1 tab Oral once a day Additional Information: Yes - Current list of reconciled medications is provided and explained to the patient and/or family, guardian/caregiver. Source: [facility] Scroll.inCHART Document Id: [id number] Miscellaneous - Hiram Currie L.P.N. 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 1. 2008 patient had difficulty urinating. Patient had a cystoscopy which helped him to urinate but since then he sprays when he urinates.2. Patient would like to see if he can have children. Temperature Core: 37.3C(Converted to: 99.1DegF) Peripheral Pulse Rate: 64/min Systolic Blood Pressure: 100mmHg Diastolic Blood Pressure: 64mmHg NIBP Mean: 76mmHg BP Location: Right upper extremity HIRAM CURRIE 09/29/2010 15:39 CDT Subjective Pain Symptoms: No HIRAM CURRIE 09/29/2010 15:39 CDT Dependent Habits Tobacco Use/Currently Using: Yes Exposure to Tobacco Smoke: Patient smokes MORGAN HIRAM Valerio 09/29/2010 15:39 CDT Tobacco Use Grid Type: Cigarettes Chewing tobacco Cigarette Use Packs/Day: 1.0 HIRAM CURRIE 09/29/2010 15:39 CDT HIRAM CURRIE 09/29/2010 15:39 CDT Alcohol Use: No HIRAM CURRIE 09/29/2010 15:39 CDT Caffeine Use Grid Caffeine Use: Current Type: Soft drinks Frequency: Daily Amount: 3 cans daily HIRAM CURRIE 09/29/2010 15:39 CDT Allergy Allergies (Active) NKA Estimated Onset Date: Unspecified ; Created By: IMTIAZ CLARK; Reaction Status: Active ; Category: Drug ; Substance: NKA ; Type: Allergy ; Updated By: IMTIAZ CLARK; Reviewed Date: 09/29/2010 15:32 CDT Source: [facility] POWERCHART Document Id: [id number] CDT!27 documented in this encounter Plan of Treatment Not on filedocumented as of this encounter Visit Diagnoses Not on filedocumented in this encounter Additional Health Concerns Assessment Noted Time PHQ-9 Depression Total Score: 8 11/02/2009 12:03 PM CD T documented as of this encounter
--- OUTSIDE RECORDS SUMMARY | 2022-02-10 14:44 | XMS_ITS | Encounter Summary ---
:1985 Author Organization [facility] Address [address] [place] [address] Care Team Providers Name Role Phone Unavailable Primary Care Provider Unavailable Encounter Details Date Type Department Care Team Description 05/20/2011 Hospital Encounter HX [facility] Tania Franklin M.D. 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 - 05/20/2011 12:00 AM CDT [id number] Chief complaint is follow up ADHD, anxiety and depression. HISTORY OF PRESENT ILLNESS This 25-year-old white male is in for a followup after starting on Adderall and increasing his Zoloft. He is absolutely amazed at how much better he feels. He can think, function and concentrate since starting the Adderall. He admits that it might have made a huge difference in his ability to learn in school had he been willing to take it previously but he just had such tremendous fear of the medication that he just prior to this last 3 weeks has not been willing to even try it. Even then he really worried after he took the first dose that he was going to have racing heart and other things, but stated that he noted some mild symptoms that have since really resolved. He does state that he does fairly well in the morning but by afternoon can tell that the medication has really worn off. Stated that we did start on a low dose because he was so anxious about it and that it would not be at all unusual for him to need a little higher dose and he is willing to try that. In terms of his anxiety he continues to really need his Xanax three times a day and states that that is really the only drug that keeps him functioning when he has his panic attacks. He has had several but they have not been as severe as previous ones and he has managed to not need to go into the emergency room. I discussed with him that really at this point he needs to stay out of the emergency room and we need to kind of work on also behavioral methods to relax and deal with his anxiety. He has not had any adverse side effects from increasing his Zoloft. CURRENT MEDICATIONS Adderall XR 20 mg p.o. q. day Imitrex 50 mg p.o. p.r.n. headache Klonopin 2 mg p.o. twice a day Xanax 1 mg twice a day p.r.n. anxiety Zofran 4 mg p.o. q.8h. p.r.n. nausea. Multivitamin. VITAL SIGNS PULSE: 100 BLOOD PRESSURE: 112/76 WEIGHT: 61 kg PHYSICAL EXAM GENERAL: Well-developed male in no acute distress. No other specific exam was done. IMPRESSION/REPORT/PLAN 1) Attention deficit hyperactivity disorder. PLAN: Increased his Adderall XL to 25 mg p.o. q. day. Encouraged him to start working on having a little more structure to his day and since he is finding he can read a little better he has now been reading the paper. Encouraged him to even consider reading some books. 2) Generalized anxiety disorder with panic attacks. PLAN: At this point we will continue with both the Klonopin 2 mg twice a day and the Xanax 1 mg up to twice a day but encouraged him as much as possible to not use the Xanax. I would like to have him increase his Zoloft but he was not comfortable doing that yet so we left that at 100 mg a day and we will reassess when I see him back in 4 weeks. We also addressed the possibility of some counseling but he feels he has had that all his life. It has not been beneficial. Encouraged him then instead to perhaps get some of the self-help type books and he states he is currently actually reading one and encouraged him to do that and work on as we talk some behavioral ways to help get his anxiety under better control. Again we will see him back in 1 month. 1 month of his current medications were provided. Federico Franklin M.D. jmw Electronically Signed By: FEDERICO FRANKLIN MD On: 05/25/2011 07:52 PM Source: [facility] MHSDOLBEYNONRADSYS Document Id: [id number] documented in this encounter Miscellaneous Notes Miscellaneous - Federico Andino M.D. - 05/20/2011 8:52 PM CDT Ambulatory Patient Summary [address] [address] Visit Information Name: ALEJANDRA ADHIKARI Current Date: 05/20/2011 20:52:44 Physicians Attending Provider: FEDERICO FRANKLIN MD Primary Care Provider: BARRETT NIEVES Your Medications Here is a list of your medications. It is important to take your medications as directed. Use a pillbox or chart to help remind you to take your medications. Please let your doctor or nurse know if you have problems taking your medications. Medication/Strength Dose Route Frequency Indications/Special Instructions/Comments alprazolam (Xanax 1 mg oral tablet) 1 mg Oral two times a day as needed for Anxiety dextroamphetamine-amphetamine (Adderall XR 25 mg oral capsule, extended release) 1 cap(s) Oral once a day (in the morning) ADHD clonazepam (Klonopin 2 mg oral tablet) 2 mg Oral two times a day anxiety sertraline (sertraline 100 mg oral tablet) 100 mg Oral once a day clonazepam (Klonopin 2 mg oral tablet) 2 mg Oral two times a day Anxiety sumatriptan (Imitrex 50 mg oral tablet) 50 mg Oral once as needed for Migraine headache repeat afterone hour if needed naproxen (Naprosyn 500 mg oral tablet) 500 mg Oral two times a day with meals as needed for Pain ondansetron (Zofran) 4 mg Oral every 8 [...] generalized Active 04/28/2011 ADHD Active 04/28/2011 Your Recommendations We want to make sure [...] Test/Treatment Last Done Next Due Additional Information Depression: PHQ-9 every 6 months 04/28/2011 10/28/2011 Health Assessment every 1 year 04/28/2011 04/27/2012 Lipid Panel every 5 years Age 20-75 05/20/2011 Checks blood for good (HDL) and bad (LDL) cholesterol. Know your numbers, they are one indicator of your risk for heart attack and stroke. Vaccine: Tetanus every 10 years 05/20/2011 Immunization to help prevent you from getting the seriousdisease Tetanus (Lockjaw). Your Upcoming Appointments Date Time Location Reason Provider 06/17/2011 15:00 [facility] f/u adhd, anxiety Rigoberto PERALTA, Federico Chatman Your Goals/Additional instructions: Source: [facility] POWERCHART Document Id: [id number] Miscellaneous - Federico Andino M.D. - 05/20/2011 8:52 PM CDT Ambulatory Depart Summary [address] [address] Visit Information Name: ALEJANDRA ADHIKARI Visit Date: 05/20/2011 20:52:43 Attending Provider: FEDERICO FRANKLIN MD Primary Care Provider: BARRETT NIEVES ALEJANDRA ADHIKARI has been given the following list of medications: Your Medications It is important to take your medications as directed. Use a pill box or chart to help remind you to take your medications. Please let your doctor or nurse know if you have problems taking your medications. Medication/Strength Dose Route Frequency Indications/Special Instructions/Comments alprazolam (Xanax 1 mg oral tablet) 1 mg Oral two times a day as needed for Anxiety dextroamphetamine-amphetamine (Adderall XR 25 mg oral capsule, extended release) 1 cap(s) Oral once a day (in the morning) ADHD clonazepam (Klonopin 2 mg oral tablet) 2 mg Oral two times a day anxiety sertraline (sertraline 100 mg oral tablet) 100 mg Oral once a day clonazepam (Klonopin 2 mg oral tablet) 2 mg Oral two times a day Anxiety sumatriptan (Imitrex 50 mg oral tablet) 50 mg Oral once as needed for Migraine headache repeat afterone hour if needed naproxen (Naprosyn 500 mg oral tablet) 500 mg Oral two times a day with meals as needed for Pain ondansetron (Zofran) 4 mg Oral every 8 [...] [facility] POWERCHART Document Id: [id number] Miscellaneous - Conversion, Historical Provider Ser - 05/20/2011 2:56 PM CDT 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/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/History Entered On: 05/20/2011 14:59 CDT Performed On: 05/20/2011 14:56 CDT by CORIN ARRIOLA Intake Chief Complaint : Med Check for RF's Temperature Oral : 36.8C(Converted to: 98.2DegF) Peripheral Pulse Rate : 100/min Respiratory Rate : 16/min Heart Rhythm : Regular Systolic Blood Pressure : 112mmHg Diastolic Blood Pressure : 76mmHg NIBP Mean : 88mmHg BP Location : Right upper extremity Blood Pressure Cuff Size : Regular Actual Weight : 61.0kg(Converted to: 134lb 8oz) Weight Source : Standing scale Dosing Weight Clinic : 61.00kg CORIN ARRIOLA - 05/20/2011 14:56 CDT General Info Information Given By : Patient Preferred Communication Mode : Verbal Languages : Russian CORIN ARRIOLA - 05/20/2011 14:56 CDT Subjective Pain Symptoms : No CORIN ARRIOLA 05/20/2011 14:56 CDT Dependent Habits Tobacco Use/Currently Using : Yes Exposure to Tobacco Smoke : Patient smokes Smoking Status : Current every day smoker CORIN ARRIOLA 05/20/2011 14:56 CDT Tobacco Use Grid Type : Cigarettes Chewing tobacco Cigarette Use Packs/Day : 1.0 CORIN ARRIOLA 05/20/2011 14:56 CDT CORIN ARRIOLA 05/20/2011 14:56 CDT Caffeine Use Grid Caffeine Use : Current Type : Soft drinks Frequency : Daily Amount : 3 cans daily CORIN ARRIOLA 05/20/2011 14:56 CDT Allergy Allergies (Active) NKA Estimated Onset Date: Unspecified ; Created By: IMTIAZ CLARK; Reaction Status: Active ; Category: Drug ; Substance: NKA ; Type: Allergy ; Updated By: IMTIAZ CLARK; Reviewed Date: 05/20/2011 14:54 CDT Source: [facility] POWERCHART Document Id: [id number] CDT!37 documented in this encounter Plan of Treatment Not on filedocumented as of this encounter Visit Diagnoses Not on filedocumented in this encounter Additional Health Concerns Assessment Noted Time PHQ-9 Depression Total Score: 13 04/28/2011 8:43 AM CS T documented as of this encounter
--- OUTSIDE RECORDS SUMMARY | 2022-02-10 14:44 | XMS_ITS | Encounter Summary ---
:1985 Author Organization [facility] Address [address] [place] [address] Care Team Providers Name Role Phone Unavailable Primary Care Provider Unavailable Encounter Details Date Type Department Care Team Description 12/21/2010 Hospital Encounter HX NO MAPPING Dante Mcdaniel M.D. [address] [place], [place] [phone] (Wo rk) Social History [...]
--- OUTSIDE RECORDS SUMMARY | 2022-02-10 14:44 | XMS_ITS | Encounter Summary ---
:1985 Author Organization [facility] Address [address] [place] [address] Care Team Providers Name Role Phone Unavailable Primary Care Provider Unavailable Encounter Details Date Type Department Care Team Description 03/12/2011 Hospital Encounter HX NO MAPPING Dante Mcdaniel M.D. 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
--- OUTSIDE RECORDS SUMMARY | 2022-02-10 14:44 | XMS_ITS | Encounter Summary ---
:1985 Author Organization [facility] Address [address] [place] [address] Care Team Providers Name Role Phone Unavailable Primary Care Provider Unavailable Encounter Details Date Type Department Care Team Description 11/22/2010 Hospital Encounter HX [facility] Prashanth Nieves P.A.-C. [address] [place] [address] (Wo rk) Social History Tobacco Use Types Packs/Day Years Used Date Smoking Tobacco: Never Assessed Sex Assigned at Date Recorded Male 10/17/2017 10:58 AM CDT documented as of this encounter Medications at Time of Discharge Medication Sig Dispensed Refills Start Date End Date clonazePAM (KlonoPIN) 2 mg tablet Twice A Day 0 0 08/27/2010 documented as of this encounter Progress Notes Barrett Nieves P.A.-C., P.A. - 11/22/2010 12:00 AM CDT [id number] CHIEF COMPLAINT / REASON FOR VISIT Anxiety, medication check. HISTORY OF PRESENT ILLNESS Alejandra is a 24-year-old who comes in today for increasing anxiety. This is not a new problem. He has struggled with mental health diagnosis since childhood and has been on a multitude of medications. He currently has been on Sertraline 50 mg daily along with Klonopin 2 mg twice daily. He is undergoing some increased social stressors and friction within his family. He struggles with increased anxiety. He has a history of polysubstance abuse with heroin addiction. He states he has been clean for the past year and one-half. He is requesting something short acting to help with the bad symptoms of anxiety. He had been seeing Zeb SteeleNMichael at [facility], but unfortunately had 2 failed appointments and is no longer to be seen there. He has an appointment scheduled to establish ongoing counseling with Boyd Helms M.S., Jenna, Latoya. at [facility]. He has had previous hospitalization for mental health reasons. He denies any thoughts of harming himself, others, or need for hospitalization at this time. He is not sleeping well. He appears very anxious and is tearful. I spent more than 40 minutes in discussion and talking with Alejandra regarding his symptoms and need to establish ongoing care with psychiatry to further manage his medications as I do not believe his anxiety is very well controlled. He may well have a bipolar disorder and is having cycling of this. He adamantly declines to use a mood stabilizer when suggested. He states that I have tried them all and they do not work. He has previously tried Seroquel, Depakote, Tegretol, Paxil, Prozac, Xanax, Ativan, Geodon, trazodone, Celexa, Lexapro. When inquired about substance use he denies this, although I do sense that he is under the influence of mind altering chemicals, but I do not believe he is in danger of harming himself or others at this time. CURRENT MEDICATIONS Klonopin 2 mg twice daily. Multivitamin daily. Sertraline 50 mg daily. Zofran as needed, not using. Naprosyn as needed. Imitrex 50 mg as needed migraine. ALLERGIES No known drug allergies. SYSTEMS REVIEW Otherwise negative except as noted above. PAST MEDICAL / SURGICAL HISTORY 1) Anxiety and depression with possible bipolar disorder. 2) OCD tendencies per patient report. 3) History of nasal fracture. 4) History of hand fracture. 5) Tonsillectomy. 6) Orchiopexy as a child. 7) Polysubstance abuse, currently substance free other than tobacco. SOCIAL HISTORY He currently lives alone in an apartment in [place]. He is single and originally from the [facility]. He was convicted of possession of illicit drugs and selling heroin. He was incarcerated for 20 months and spent some time in a assisted house. He is on disability due to mental health reasons. His family and friends still reside in the [facility]. He smokes about 1 pack per day. He currently denies use of illicit drugs, alcohol, or other mind altering substances. FAMILY HISTORY Positive for depression, anxiety, otherwise unremarkable. VITAL SIGNS TEMP: 36.6 degreesC PULSE: 78 RESP RATE: 18 BLOOD PRESSURE: 98/62 WEIGHT: 59.9 kg PHYSICAL EXAM GENERAL: Visibly anxious. He becomes upset and teary-eyed. He has broken eye contact. Normal speech pattern, although thought process is somewhat incongruent. He is fidgeting. IMPRESSION / REPORT / PLAN 1) Anxiety and depression with a possible bipolar disorder. 2) History of polysubstance abuse. 3) Increased social stressors. PLAN: I had a candid discussion with Alejandra that he needs to establish care with a mental health provider to manage his medications. He states that he has been doing very well on his medications up until recently and the only thing that he desires today is to have something short acting to help with his acute anxiety symptoms. I informed him that I was uncomfortable continuing this on a [employer] basis, but I ultimately did give him Xanax 0.5 mg one-half to 1 tablet three times daily as needed, #30 with no refills. He is aware that I will not provide any refills of this and that I strongly encourage him to get reestablished with a mental health provider. He states that he does have an appointment to see Boyd Helms. I also increased his Sertraline to 100 mg daily. I do not believe he is at risk of harming himself or others and does not meet criteria for a 72-hour hold, although I do have some suspicions of illicit drug use. Alejandra adamantly denies this. He is on probation and does have to submit to random urine testing, which by his report have all been negative. I will see him back in 2 weeks. Symptoms to warrant more urgent evaluation were discussed. I also discussed with him that should he have increased anxiety or further concerns that I recommend emergency room evaluation and consideration of mental health admission to further adjust medications. He is in agreement with this. Sary Reynoso Electronically Signed By: BARRETT NIEVES On: 11/26/2010 01:53 PM Source: [facility]SDOLBEYNONRADSYS Document Id: [id number] documented in this encounter Miscellaneous Notes Miscellaneous - Barrett Nieves P.A.-C., P.A. - 11/22/2010 4:20 PM CDT Ambulatory Patient Summary [address] [address] Visit Information Name: ALEJANDRA ADHIKARI Current Date: 11/22/2010 16:20:34 Primary Care Provider: BARRETT NIEVES Your Medications Here is a list of your medications. It is important to take your medications as directed. Use a pillbox or chart to help remind you to take your medications. Please let your doctor or nurse know if you have problems taking your medications. Medication/Strength Dose Route Frequency Indications/Special Instructions/Comments alprazolam (Xanax 0.5 mg oral tablet) 0.5 to 1 tab Oral three times a day as needed for Anxiety sertraline (sertraline 100 mg oral tablet) 100 mg Oral once a day anxiety/depression clonazepam (Klonopin 2 mg oral tablet) 2 mg Oral two times a day anxiety naproxen (Naprosyn 500 mg oral tablet) 500 [...] Lipid Panel every 5 years Age 20-75 11/22/2010 Checks blood for good (HDL) and bad (LDL) cholesterol. Know your numbers, they are one indicator of your risk for heart attack and stroke. Vaccine: Tetanus every 10 years 11/22/2010 Immunization to help prevent you from getting the seriousdisease Tetanus (Lockjaw). Your Upcoming Appointments Date Time Location Reason Provider No Appointments found Your Goals/Additional instructions: Source: [facility] POWERCHART Document Id: [id number] Miscellaneous - Barrett Nieves P.A.-C., P.A. - 11/22/2010 4:20 PM CDT Ambulatory Depart Summary [address] [id number] Visit Information Name: ALEJANDRA ADHIKARI Current Date: 11/22/2010 16:20:32 Primary Care Provider: BARRETT NIEVES ALEJANDRA ADHIKARI has been given the following list of medications: Your Medications It is important to take your medications as directed. Use a pill box or chart to help remind you to take your medications. Please let your doctor or nurse know if you have problems taking your medications. Medication/Strength Dose Route Frequency Indications/Special Instructions/Comments alprazolam (Xanax 0.5 mg oral tablet) 0.5 to 1 tab Oral three times a day as needed for Anxiety sertraline (sertraline 100 mg oral tablet) 100 mg Oral once a day anxiety/depression clonazepam (Klonopin 2 mg oral tablet) 2 mg Oral two times a day anxiety naproxen (Naprosyn 500 mg oral tablet) 500 [...] to the patient and/or family, guardian/caregiver. Source: 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 [employer] Intake/History Entered On: 11/22/2010 15:11 CDT Performed On: 11/22/2010 15:09 CDT by CORIN ARRIOLA Intake Chief Complaint: Med Check Temperature Oral: 36.6C(Converted to: 97.9DegF) Peripheral Pulse Rate: 78/min Respiratory Rate: 18/min Systolic Blood Pressure: 98mmHg Diastolic Blood Pressure: 62mmHg NIBP Mean: 74mmHg Actual Weight: 59.900kg(Converted to: 132lb 1oz) Weight Source: Standing scale Dosing Weight Clinic: 59.90kg CORIN ARRIOLA - 11/22/2010 15:09 CDT Subjective Pain Symptoms: No CORIN ARRIOLA - 11/22/2010 15:09 CDT Dependent Habits Tobacco Use/Currently Using: Yes Exposure to Tobacco Smoke: Patient smokes CORIN ARRIOLA - 11/22/2010 15:09 CDT Tobacco Use Grid Type: Cigarettes Chewing tobacco Cigarette Use Packs/Day: 1.0 CORIN ARRIOLA - 11/22/2010 15:09 CDT CORIN ARRIOLA 11/22/2010 15:09 CDT Caffeine Use Grid Caffeine Use: Current Type: Soft drinks Frequency: Daily Amount: 3 cans daily CORIN ARRIOLA 11/22/2010 15:09 CDT Allergy Allergies (Active) NKA Estimated Onset Date: Unspecified ; Created By: IMTIAZ CLARK; Reaction Status: Active ; Category: Drug ; Substance: NKA ; Type: Allergy ; Updated By: IMTIAZ CLARK; Reviewed Date: 11/22/2010 15:05 CDT Source: [facility] POWERCHART Document Id: [id number] CDT!29 documented in this encounter Plan of Treatment Not on filedocumented as of this encounter Visit Diagnoses Not on filedocumented in this encounter Additional Health Concerns Assessment Noted Time PHQ-9 Depression Total Score: 8 11/02/2009 12:03 PM CD T documented as of this encounter
--- OUTSIDE RECORDS SUMMARY | 2022-02-10 14:44 | XMS_ITS | Encounter Summary ---
:1985 Author Organization [facility] Address [address] [place] [address] Care Team Providers Name Role Phone Unavailable Primary Care Provider Unavailable Encounter Details Date Type Department Care Team Description 04/28/2011 Hospital Encounter HX [facility] Tania Franklin M.D. Social History Tobacco Use Types Packs/Day Years Used Date Smoking Tobacco: Never Assessed Sex Assigned at Date Recorded Male 10/17/2017 10:58 AM CDT documented as of this encounter Last Filed Vital Signs Vital Sign Reading Time Taken Comments Blood Pressure 94/60 04/28/2011 2:22 PM [facility] Pulse 80 04/28/2011 2:22 PM [facility] Temperature - - Respiratory Rate 20 04/28/2011 2:22 PM [facility] Oxygen Saturation - - Inhaled Oxygen Concentration - - Weight 60.1 kg (132 lb 7.9 oz) 04/28/2011 2:22 PM [facility] Height 164.3 cm (5' 4.69) 04/28/2011 2:22 PM [facility] Body Mass Index 22.26 04/28/2011 2:22 PM [facility] documented in this encounter Medications at Time of Discharge Medication Sig Dispensed Refills Start Date End Date clonazePAM (KlonoPIN) 2 mg tablet Twice A Day 0 0 08/27/2010 documented as of this encounter Progress Notes Federico Andino M.D. - 04/28/2011 12:00 AM CST [id number] Chief complaint is assume care for his anxiety and depression issues. HISTORY OF PRESENT ILLNESS I am seeing this 25-year-old white male for the first time today. There have been some issues in terms of his behavior and med use previously and so he is agreeing to see me now as his primary physician under the established guidelines that we are discussing today. He tells me that he has had significant issues with anxiety dating back to probably about age 16. He states that he did not complete more than about the 5th grade in school. He has had significant problems reading and learning. He admits that he has been sort of self medicating. He ended up in nursing home for 2 years and just kind of describes it as kind of losing it at that point. He states that he has been diagnosed on several occasions in the past with ADHD but has refused to take medications. He admits though that he has a terrible time staying on task and concentrating or really getting things done because he is quite distracted and it is just difficult for him. He is currently under Social Security disability due to his mental health issues. His primary complaint mental health thompson is just absolutely overwhelming anxiety. He currently feels that he functions the best on his Klonopin 2 mg twice a day and then using his Xanax up to three times a day. He is on Zoloft but currently is only taking 50 mg a day. He unfortunately has no car or transportation so he is concerned about making appointments. He was seen briefly at [facility] but ended up missing 2 of his appointments due to his transportation difficulties and really his inability to kind of followthrough on directions well and they will no longer see him. He does tell me he managed by about 1 point to actually get his GED and would like to try and read and possibly even take some online courses and so we really did spend a bit of time reviewing what his goals are. CURRENT MEDICATIONS Zoloft 50 mg p.o. q. day Klonopin 2 mg twice a day Xanax 1 mg up to twice a day p.r.n. anxiety Imitrex 50 mg p.r.n. migraines Naproxen 500 mg up to twice a day p.r.n. headaches Zofran 4 mg q.8h. p.r.n. nausea. ALLERGIES None known. PAST MEDICAL/SURGICAL HISTORY 1) Depression and anxiety with a history of possible bipolar disorder. 2) History of obsessive compulsive tendencies. 3) History of nasal fracture, status post surgery to remove the cartilage, per patient. 4) Status post sinus surgery about 5-7 years ago. 5) Status post tonsillectomy. 6) Status post wisdom teeth removal. 7) Status post orchidopexy as a child. 8) History of right hand fracture with open reduction internal fixation. 9) History of polysubstance abuse previously with alcohol and heroin with previous treatment. Clean and sober for 3 years. 10) History of irritable bowel syndrome. 11) History of hypoglycemia, although this was during detoxification coming off of heroin and he has not had problems since that time. 12) Migraine headaches with previous neurologic evaluation with neural imaging December 21, 2009, with MRI of the brain and angiogram, which were normal. 13) Sinus surgery in March 2010. VITAL SIGNS His blood pressure was 94/60. His height is 164.3 cm, weight is 60.1 kg giving him a BMI of 22.26. General exam shows a well-developed male in no acute distress. He does appear just generally somewhat anxious and fidgety. MENTAL STATUS: He is alert, oriented and appropriate. PHQ-9 is coming in with a score of 12 and his Brown's anxiety inventory is coming in with a score of 43. IMPRESSION/REPORT/PLAN 1) Generalized anxiety disorder. PLAN: Refilled his Klonopin 2 mg twice a day for 1 month and his Xanax 1 mg to take up to twice a day number given 60, again for a month. Also urged him to take his Zoloft at 100 mg a day. We kind of reviewed the pathophysiology of depression and anxiety and the role that Zoloft may be able to play in improving his overall symptoms. Because of his prior history I did state that we needed to have him sign a controlled substance contract which he agreed to. He agrees that I will be the only physician prescribing for him. He needs to avoid the emergency room and follow up as prescribed. 2) Attention deficit hyperactivity disorder. PLAN: I strongly urged him to try the Adderall XL 20 mg p.o. q. day since I really do think ADHD is a big part of his issues. Again gave him 1 month supply with follow-up. Also discussed the importance of starting to work on regulating his life where he gets up in the morning, goes to bed at a reasonable time, finds activities to keep him motivated and active including exercise, trying to read, particularly if the Adderall is helpful for him. Discussed that if he wishes to improve his current life he is going to need to make some changes and put some major effort into this. 40 minutes was spent with the patient basically in discussing guidelines, reviewing the medication contract, also his behavioral guidelines that he cannot be swearing or inappropriate with staff or myself and reviewing medications risks and benefits and side effects. Federico Franklin M.D. jmw Electronically Signed By: FEDERICO FRANKLIN MD On: 05/05/2011 06:52 PM Source: [facility] MHSDOLBEYNONRADSYS Document Id: [id number] [facility] documented in this encounter Miscellaneous Notes Miscellaneous - Federico Andino M.D. - 04/29/2011 5:10 PM [facility] Results Notification Document Contains Addenda Addendum by IMTIAZ CAUSEY on 29 April 2011 18:11:19 [facility] PT NOTIFIED From: FEDERICO FRANKLIN MD To: IVELISSE CABRAL Sent: 04/29/2011 17:10:08 [facility] ! Show up: 04/29/2011 23:10:08 [facility] Subject: Results Notification Actions: Notify patient of results Source: [facility] POWERCHART Document Id: [id number] Electronically signed by Conversion, [facility] [id number] at 08/06/2016 12:30 PM CDT Miscellaneous - Conversion, Historical Provider Ser - 04/28/2011 2:22 PM [facility] Adult Water Manager Intake/History Adult Water Manager Intake/History Entered On: 04/28/2011 14:26 [facility] Performed On: 04/28/2011 14:22 [facility] by MANSOOR PEREZ Intake Chief Complaint : PT HERE FOR MEET AND GREET WITH YOU. PT WAS A PT OF BARRETT NIEVES BUT NOW NEEDS TO FIND A NEW PROVIDER. PT NEEDS MEDS REFILLED ESPECIALLY XANAX AND KLONOPIN. PT HAS REALLY BAD ANXIETY AND DEPRESSION ISSUES. Ambulatory Intake Additional Information : PT HAS BEEN DIAGNOSED WITH MENTAL DISORDER RECENTLY. Temperature Oral : 36.7C(Converted to: 98.1DegF) Peripheral Pulse Rate : 80/min Respiratory Rate : 20/min Heart Rhythm : Regular Systolic Blood Pressure : 94mmHg Diastolic Blood Pressure : 60mmHg NIBP Mean : 71mmHg BP Location : Right upper extremity Blood Pressure Cuff Size : Large Height : 164.3cm(Converted to: 5ft 5inch(es), 64.69inch(es)) Actual Weight : 60.1kg(Converted to: 132lb 8oz) Dosing Weight Clinic : 60.10kg Clinic BSA : 1.66 Body Mass Index : 22.26kg/m2 MANSOOR PEREZ R 04/28/2011 14:22 [facility] General Info Information Given By : Patient Preferred Communication Mode : Verbal Languages : Argentine MANSOOR PEREZ 04/28/2011 14:22 [facility] Subjective Pain Symptoms : No MANSOOR PEREZ 04/28/2011 14:22 [facility] Dependent Habits Tobacco Use/Currently Using : Yes Exposure to Tobacco Smoke : Patient smokes Smoking Status : Current every day smoker MANSOOR PEREZ 04/28/2011 14:22 [facility] Tobacco Use Grid Type : Cigarettes Chewing tobacco Cigarette Use Packs/Day : 1.0 MANSOOR PEREZ 04/28/2011 14:22 [facility] MANSOOR PEREZ 04/28/2011 14:22 [facility] Alcohol Use : No MANSOOR PEREZ 04/28/2011 14:22 [facility] Caffeine Use Grid Caffeine Use : Current Type : Soft drinks Frequency : Daily Amount : 3 cans daily MANSOOR PEREZ 04/28/2011 14:22 [facility] Allergy Allergies (Active) NKA Estimated Onset Date: Unspecified ; Created By: IMTIAZ CLARK; Reaction Status: Active ; Category: Drug ; Substance: NKA ; Type: Allergy ; Updated By: IMTIAZ CLARK; Reviewed Date: 04/28/2011 14:17 [facility] Source: [employer] Document Id: [id number] [facility]!41 Miscellaneous - Conversion, Historical Provider Ser - 04/28/2011 2:21 PM [facility] Health Assessment Health Assessment Entered On: 04/28/2011 14:21 [facility] Performed On: 04/28/2011 14:21 [facility] by MANSOOR PEREZ Health Assessment Complete Health Assessment Complete or Modified : Annual Health Assessment Annual Health Assessment Completed : Yes MANSOOR PEREZ - 04/28/2011 14:21 [facility] Nutrition Nutrition Risk Factors by History Adult : None MANSOOR PEREZ - 04/28/2011 14:21 [facility] Functional Current Daily Living Assistance : None MANSOOR PEREZ 04/28/2011 14:21 [facility] Dependent Habits Tobacco Use/Currently Using : Yes Exposure to Tobacco Smoke : Patient smokes Smoking Status : Current every day smoker MANSOOR PEREZ 04/28/2011 14:21 [facility] Tobacco Use Grid Type : Cigarettes Chewing tobacco Cigarette Use Packs/Day : 1.0 MANSOOR PEREZ 04/28/2011 14:21 [facility] MANSOOR PEREZ 04/28/2011 14:21 [facility] Caffeine Use Grid Caffeine Use : Current Type : Soft drinks Frequency : Daily Amount : 3 cans daily MANSOOR PEREZ 04/28/2011 14:21 [facility] Psychosocial Domestic Abuse Concerns : None MANSOOR PEREZ 04/28/2011 14:21 [facility] Advance Directive Advanced Directives : No MANSOOR PEREZ 04/28/2011 14:21 [facility] Educ Needs Learning Style Preference Adult Grid Patient : None Family : None MANSOOR PEREZ 04/28/2011 14:21 [facility] Source: [facility] POWERCHART Document Id: [id number] [facility]!32 Miscellaneous - Conversion, Historical Provider Ser - 04/28/2011 8:43 AM [facility] PHQ-9 PHQ-9 Entered On: 04/29/2011 8:43 [facility] Performed On: 04/28/2011 8:43 [facility] by MANSOOR PEREZ PHQ-9 Little interest or pleasure in doing things : Several days Feeling down, depressed, or hopeless : Several days Trouble falling or staying asleep, or sleeping too much : Nearly every day Feeling tired or having little energy : Not at all Poor appetite or overeating : Several days Feeling bad about yourself or that you are a failure : Several days Trouble concentrating on things : Nearly every day Moving or speaking slowly; restless or fidgety : Nearly every day Thoughts that you would be better off /hurting self : Not at all PHQ-9 Calculated Score : 13 Problems make work, home, or dealing with others : Very difficult MANSOOR PEREZ R - 04/29/2011 8:43 [facility] Document Id: [id number] [facility]!13 documented in this encounter Plan of Treatment Not on filedocumented as of this encounter Procedures Procedure Name Priority Date/Time Associated Comments Diagnosis DRUG ABUSE SURVEY, U Routine 04/28/2011 3:46 PM R esults for this [facility] procedure are i n the results section. ADULTERANTS SURVEY, U Routine 04/28/2011 3:46 PM Results for this [facility] procedure are i n the results section. documented in this encounter Results Adulterants Survey, Urine (04/28/2011 3:46 PM [facility]) athologist Signature HX U Adlt Sv >200.0 MGDL POWERCHART Creat-[place] Comment: Specimen unusually concentrated . Specific [place], POCT, U 1.012 ALOK RCHART HX U Adlt Sv pH-[place] 8.0 POWERCHAR T HX U Adlt Sv Oxid-[place] Negative POWERCH ART Comment: Test Performed by: [facility] Dpt of Lab Med and Pathology [address] [place] [address] Java Project Manager: Phong mcknight III, M.D. Specimen Anatomical Collection Method Collection Time Receive d Time (Source) Location / / Volume Laterality Urine 04/28/2011 3:46 PM 2 8:50 [facility] PM [facility] Historical Provider LAB URINE ORDERABLES Performing Organization Address City/State/ZIP Code Phon e Number POWERCHART Drug Abuse Survey, Urine (04/28/2011 3:46 PM [facility]) [facility] gist Method Time Signature Alcohol Negative Cutoff: POWERCHART 30 MGDL HXU ARAUZ Negative Cutoff: POWERCHART Amphe-Tiwari 500 NGML Barbiturates Negative Cutoff: POWERCHART 200 NGML HX U ARAUZ See Comment Cutoff: POWERCHART Benzo-Tiwari 200 NGML Comment: RESULT: Presumptive Positive Cocaine Negative Cutoff: 300 NGML POWERCHART HXU Opiates-[place] Negative Cutoff: 300 NGML POWERC NASH HX U Phency-[place] Negative Cutoff: 25 NGML POWERCH ART Tetrahydrocannabinol Negative Cutoff: 20 NGML POW ERCHART Comment: The drugs listed above are detected by i mmunoassay. ??Call the lab to initiate confirmatory testing if needed. Specimens are retained in the laboratory for two weeks. This test is not intended for use in emp loyment-related testing. Test Performed by: [facility] Dpt of Lab Med and Pathology [address] [place] [address] Java Project Manager: Phong mcknight III, M.D. Specimen (Source) Anatomical Collection Method Collection Time Re ceived Time Location / / Volume Laterality Urine 04/28/2011 3:46 PM [facility] Federico Franklin M.D. LAB URINE ORDERABLES Performing Organization Address City/State/ZIP Code Phon e Number POWERCHART documented in this encounter Visit Diagnoses Not on filedocumented in this encounter Additional Health Concerns Assessment Noted Time PHQ-9 Depression Total Score: 13 04/28/2011 8:43 AM CS T documented as of this encounter
--- OUTSIDE RECORDS SUMMARY | 2022-02-10 14:44 | XMS_ITS | Encounter Summary ---
:1985 Author Organization [facility] Address [address] [place] [address] Care Team Providers Name Role Phone Unavailable Primary Care Provider Unavailable Encounter Details Date Type Department Care Team Description 12/21/2010 Hospital Encounter HX NO MAPPING Dante Mcdaniel M.D. [address] [place], [place] [phone] (Wo rk) Social History [...]
--- OUTSIDE RECORDS SUMMARY | 2022-02-10 14:44 | XMS_ITS | Encounter Summary ---
:1985 Author Organization [facility] Address [address] [place] [address] Care Team Providers Name Role Phone Unavailable Primary Care Provider Unavailable Encounter Details Date Type Department Care Team Description 12/10/2010 Hospital Encounter HX [facility] Prashanth Nieves P.A.-C. [address] [place] [address] (Wo rk) Social History Tobacco Use Types [...] Progress Notes Barrett Nieves P.A.-C., P.A. - 12/10/2010 12:00 AM CDT [id number] CHIEF COMPLAINT / REASON FOR VISIT Recheck anxiety, refill Imitrex. HISTORY OF PRESENT ILLNESS Alejandra is a 24-year-old who was seen a couple weeks ago for increasing depression and anxiety. He does have a history significant for mental health disorder, depression, anxiety and possible bipolar disorder. He was seen for increasing anxiety and had been given some Xanax to get through until he was able to establish with a counselor. Unfortunately, he has not yet established care with a counselor. He is having very significant increase in symptoms of depression, stating that it's just me, I have nothing, I am on disability, I have no job, I have no family. He denies any thoughts of harming himself. He states he is not suicidal. I do have concerns about illicit drug and substance use. He does have a past history of heroin addiction and has gone through treatment as well as spent some time in group home for this. He denies this today. He is not sleeping well. He has lost approximately 35 pounds within the past year. He is having more headaches and is requesting a refill of his Imitrex. I had a candid discussion with Alejandra regarding my concern that with his significant depression I am concerned that he will return to substance use or harm himself, although he denies this today. At last visit, he was very anxious and speech was somewhat tangential. Today he is very much depressed and is tearful. CURRENT MEDICATIONS Zoloft 100 mg daily. Imitrex 50 mg as needed for migraine. Xanax 0.5 mg 3 times daily as needed, is out of. Klonopin 2 mg twice daily. Naprosyn 500 mg twice daily as needed. Zofran 4 mg as needed for nausea with migraines. Suboxone 2 mg/0.5 mg sublingual twice daily. Multivitamin daily. ALLERGIES No known drug allergies. VITAL SIGNS TEMP: 36.6 degreesC PULSE: 76 RESP RATE: 18 BLOOD PRESSURE: 90/52 WEIGHT: 58.2 kg PHYSICAL EXAM GENERAL: In no acute distress. He is very teary eyed. Mood is depressed with a flattened affect. He does not maintain good eye contact. He denies being suicidal. IMPRESSION/REPORT/PLAN 1) Major depression, cannot exclude bipolar disorder with cycling. PLAN: I had a candid discussion with Alejandra in that I am concerned about his safety and because of this I do recommend further evaluation and he is agreeable to going to the Emergency Room for this. He is not very happy about it, but does agree to go willingly. I did renew his Imitrex, however, I will not provide further refill of his Xanax and I recommend that he get established with Psychiatry to further manage his medications and ongoing counseling. Emergency Room physician, Dr. Dante Mcdaniel, was consulted and accepting patient. Patient was escorted to Emergency Room ambulatory by nursing staff in stable condition where he will undergo further evaluation, workup and treatment as needed. Sary Reynoso Electronically Signed By: BARRETT NIEVES On: 12/15/2010 09:08 AM Source: [facility] MHSDOLBEYNONRADSYS Document Id: [id number] documented in this encounter Miscellaneous Notes Miscellaneous - Barrett Nieves P.A.-C., P.A. - 12/10/2010 3:36 PM CDT Ambulatory Patient Summary [facility] [address] [place] [address] Visit Information Name: ALEJANDRA ADHIKARI Current Date: 12/10/2010 15:36:25 Primary Care Provider: BARRETT NIEVES Your Medications Here is a list of your medications. It is important to take your medications as directed. Use a pillbox or chart to help remind you to take your medications. Please let your doctor or nurse know if you have problems taking your medications. Medication/Strength Dose Route Frequency Indications/Special Instructions/Comments sumatriptan (Imitrex 50 mg oral tablet) 50 mg Oral once as needed for Migraine headache repeat afterone hour if needed alprazolam (Xanax 0.5 mg oral tablet) 0.5 [...] Active Recurrent major depression NOS Active 12/10/2010 Your Recommendations We want to make sure [...] Additional Information Depression: PHQ-9 every 6 months 11/02/2009 05/04/2010 Lipid Panel every 5 years Age 20-75 12/10/2010 Checks blood for good (HDL) and bad (LDL) cholesterol. Know your numbers, they are one indicator of your risk for heart attack and stroke. Vaccine: Tetanus every 10 years 12/10/2010 Immunization to help prevent you from getting the seriousdisease Tetanus (Lockjaw). Your Upcoming Appointments Date Time Location Reason Provider No Appointments found Your Goals/Additional instructions: Source: [facility] POWERCHART Document Id: [id number] Miscellaneous - Barrett Nieves PKristin.-Teodoro., P.A. - 12/10/2010 3:36 PM CDT Ambulatory Depart Summary [address] [address] Visit Information Name: ALEJANDRA ADHIKARI Current Date: 12/10/2010 15:36:23 Primary Care Provider: BARRETT NIEVES ALEJANDRA ADHIKARI has been given the following list of medications: Your Medications It is important to take your medications as directed. Use a pill box or chart to help remind you to take your medications. Please let your doctor or nurse know if you have problems taking your medications. Medication/Strength Dose Route Frequency Indications/Special Instructions/Comments sumatriptan (Imitrex 50 mg oral tablet) 50 mg Oral once as needed for Migraine headache repeat afterone hour if needed alprazolam (Xanax 0.5 mg oral tablet) 0.5 [...] to the patient and/or family, guardian/caregiver. Source: [facility] POWERCHART Document Id: [id number] Miscellaneous - Angelia Skelton L.P.N. - 12/10/2010 1:41 PM CDT Adult Spa Manager Intake/History Adult Spa Manager Intake/History Entered On: 12/10/2010 13:44 CDT Performed On: 12/10/2010 13:41 CDT by ANGELIA SKELTON Intake Chief Complaint: recheck on anxiety meds needs Imitrex refilled Temperature Oral: 36.6C(Converted to: 97.9DegF) Peripheral Pulse Rate: 76/min Systolic Blood Pressure: 90mmHg (LOW) Diastolic Blood Pressure: 52mmHg NIBP Mean: 65mmHg Actual Weight: 58.200kg(Converted to: 128lb 5oz) Dosing Weight Clinic: 58.20kg ANGELIA SKELTON - 12/10/2010 13:41 CDT General Info Information Given By: Patient Preferred Communication Mode: Verbal Languages: Portuguese ANGELIA SKELTON - 12/10/2010 13:41 CDT Subjective Pain Symptoms: No ANGELIA SKELTON - 12/10/2010 13:41 CDT Dependent Habits Tobacco Use/Currently Using: No Exposure to Tobacco Smoke: Patient smokes ANGELIA SKELTON - 12/10/2010 13:41 CDT Tobacco Use Grid Type: Cigarettes Chewing tobacco Cigarette Use Packs/Day: 1.0 ANGELIA SKELTON - 12/10/2010 13:41 CDT ANGELIA SKELTON - 12/10/2010 13:41 CDT Caffeine Use Grid Caffeine Use: Current Type: Soft drinks Frequency: Daily Amount: 3 cans daily ANGELIA SKELTON - 12/10/2010 13:41 CDT Allergy Allergies (Active) NKA Estimated Onset Date: Unspecified ; Created By: IMTIAZ CLARK; Reaction Status: Active ; Category: Drug ; Substance: NKA ; Type: Allergy ; Updated By: IMTIAZ CLARK; Reviewed Date: 12/10/2010 13:41 CDT [email or web address] Document Id: [id number]!31 documented in this encounter Plan of Treatment Not on filedocumented as of this encounter Visit Diagnoses Not on filedocumented in this encounter Additional Health Concerns Assessment Noted Time PHQ-9 Depression Total Score: 8 11/02/2009 12:03 PM CD T documented as of this encounter
--- OUTSIDE RECORDS SUMMARY | 2022-02-10 14:44 | XMS_ITS | Encounter Summary ---
:1985 Author Organization [facility] Address [address] [place] [address] Care Team Providers Name Role Phone Unavailable Primary Care Provider Unavailable Encounter Details Date Type Department Care Team Description 12/10/2010 Hospital Encounter HX NO MAPPING Dante Mcdaniel M.D. [address] [place], [place] [phone] (Wo rk) Social History [...]
--- OUTSIDE RECORDS SUMMARY | 2022-02-10 14:44 | XMS_ITS | Encounter Summary ---
:1985 Author Organization [facility] Address [address] [place] [address] Care Team Providers Name Role Phone Unavailable Primary Care Provider Unavailable Encounter Details Date Type Department Care Team Description 07/10/2011 Hospital Encounter HX NO MAPPING Wellington Silva, JoellenO. [address] [place] [phone] (Wo rk) Social History Tobacco Use Types [...]
--- OUTSIDE RECORDS SUMMARY | 2022-02-10 14:44 | XMS_ITS | Encounter Summary ---
:1985 Author Organization [facility] Address [address] [place] [address] Care Team Providers Name Role Phone Unavailable Primary Care Provider Unavailable Encounter Details Date Type Department Care Team Description 06/25/2011 Hospital Encounter HX NO MAPPING Dante Mcdaniel M.D. [address] [place], [place] [phone] (Wo rk) Social History [...] Priority Date/Time Associated Diagnosis Comme nts CT THORACIC SPINE Routine 06/25/2011 3:17 AM Resu lts for this WITHOUT IV CONTRAST CDT procedur e are in the results section. CT CERVICAL SPINE Routine 06/25/2011 3:17 AM Resu lts for this WITHOUT IV CONTRAST CDT procedur e are in the results section. CT HEAD WITHOUT IV Routine 06/25/2011 3:17 AM Res ults for this CONTRAST CDT procedure are i n the results section. documented in this encounter Results CT Thoracic Spine without IV Contrast (06/25/2011 3:17 AM CDT) Anatomical Region Laterality Modality Thoracic Spine N/A Computed Tomography Specimen (Source) Anatomical Collection Method Collection Time Re ceived Time Location / / Volume Laterality 06/25/2011 3:17 AM CDT Addenda Addendum by Provider, Delvin Pathak 06/25/2011 3:17 AM CDT RAD^^^OW CT Thoracic Spine wo contrast 06/25/2011 03:17:21 Impressions 06/27/2011 7:04 AM CDT ??No evidence of acute thoracic spine injury. Additional findings as noted above. Narrative 06/27/2011 7:04 AM CDT EXAM: ??CT Thoracic Spine w/o contrast AGE: ??25 years old. GENDER: ??Male. INDICATION: ??FALL - HIT STAIRS COMPARISON: ??Please refer to dedicated CT report of the cervical spine, head. FINDINGS: ??Preliminary report generated by virtual radiology. Probable bone island within the T5 verte bral body. Small Schmorl's nodes deformities within the midthoracic spine, more pronounced at the T7 and T8 disc space l evels. Slight kyphosis present likely chronic. No appreciable a cute osseous injury. If clinically indicated dedicated MRI of th e thoracic spine may be helpful for evaluation of possible occul t ligamentous comment disc space injury. Procedure Note Abdiel Stein M.D. / Tamra Pickard M.D. - 07/26/2016 EXAM: CT Thoracic Spine w/o contrast AGE: [age] years old. GENDER: Male. INDICATION: FALL - HIT STAIRS COMPARISON: Please refer to dedicated CT report of the cervical spine, head. FINDINGS: Preliminary report generated b y virtual radiology. Probable bone island within the T5 verte bral body. Small Schmorl's nodes deformities within the midthoracic spine, more pronounced at the T7 and T8 disc space l evels. Slight kyphosis present likely chronic. No appreciable a cute osseous injury. If clinically indicated dedicated MRI of th e thoracic spine may be helpful for evaluation of possible occul t ligamentous comment disc space injury. IMPRESSION: No evidence of acute thoraci c spine injury. Additional findings as noted above. Trixie Barnhart R.TGerman(R)(CT), R.TGerman(R) IMG CT PROCEDURES CT Cervical Spine without IV Contrast (06/25/2011 3:17 AM CDT) Anatomical Region Laterality Modality Cervical Spine N/A Computed Tomography Specimen (Source) Anatomical Collection Method Collection Time Re ceived Time Location / / Volume Laterality 06/25/2011 3:17 AM CDT Addenda Addendum by Provider, Delvin Pathak o n 06/25/2011 3:17 AM CDT RAD^^^OW CT Cervical Spine wo contrast 06/25/2011 03:17:21 Impressions 06/27/2011 6:31 AM CDT ??No appreciable acute injury of the cervical spine. Additional findings and discussion as no faustino above. Narrative 06/27/2011 6:31 AM CDT EXAM: ??CT Cervical Spine w/o contrast AGE: ??25 years old. GENDER: ??Male. INDICATION: ??FALL - HIT STAIRS COMPARISON: ??Please referred to dedic ed CT report of the head, thoracic spine. FINDINGS: ??Preliminary report generated by virtual radiology. Negative for fractures. Relatively well preserved vertebral body and disc space heights. No evidence of facet joint injury. If clinically indicated dedicated MRI of the cervical spine would be more sensitive for evaluation of disc sp sergey/occult ligamentous injury. Normal noncontrast CT appearance of the prevertebral soft tissues. Procedure Note Abdiel Stein M.D. / ProviderTamra M.D. - 07/26/2016 EXAM: CT Cervical Spine w/o contrast AGE: [age] years old. GENDER: Male. INDICATION: FALL - HIT STAIRS COMPARISON: Please referred to dedicated CT report of the head, thoracic spine. FINDINGS: Preliminary report generated b y virtual radiology. Negative for fractures. Relatively well preserved vertebral body and disc space heights. No evidence of facet joint injury. If clinically indicated dedicated MRI of the cervical spine would be more sensitive for evaluation of disc sp sergey/occult ligamentous injury. Normal noncontrast CT appearance of the prevertebral soft tissues. IMPRESSION: No appreciable acute injury of the cervical spine. Additional findings and discussion as no faustino above. Trixie Barnhart R.T.(R)(CT), R.T.(R) IMG CT PROCEDURES CT Head without IV Contrast (06/25/2011 3:17 AM CDT) Anatomical Region Laterality Modality Head N/A Computed Tomography Specimen (Source) Anatomical Collection Method Collection Time Re ceived Time Location / / Volume Laterality 06/25/2011 3:17 AM CDT Addenda Addendum by Provider, Delvin Pathak 06/25/2011 3:17 AM CDT RAD^^^OW CT Head wo contrast 06/25/2011 03:17:21 Impressions 06/26/2011 10:46 AM CDT ??No appreciable acute intracranial abnormalities. Additional findings as noted above. Narrative 06/26/2011 10:46 AM CDT EXAM: ??CT Head w/o contrast AGE: ??25 years old. GENDER: ??Male. INDICATION: ??FALL - HIT STAIRS COMPARISON: ??Please refer to dedicated CT report of the cervical spine, thoracic spine. FINDINGS: ??Preliminary report generated by virtual radiology. No appreciable intracranial mass or hemorrh age. No midline shift. No hydrocephalus. Small hematoma overlying the left fronta l scalp. Small amount of mucosal thickening of th e left frontal sinus. Normal appearance of the visualized calvarium, bilateral mastoid air cells. Small amount cerumen is present within t he bilateral external auditory canals. Procedure Note Abdiel Stein M.D. / ProviderTamra M.D. - 07/26/2016 EXAM: CT Head w/o contrast AGE: [age] years old. GENDER: Male. INDICATION: FALL - HIT STAIRS COMPARISON: Please refer to dedicated CT report of the cervical spine, thoracic spine. FINDINGS: Preliminary report generated b y virtual radiology. No appreciable intracranial mass or hemorrh age. No midline shift. No hydrocephalus. Small hematoma overlying the left fronta l scalp. Small amount of mucosal thickening of th e left frontal sinus. Normal appearance of the visualized calvarium, bilateral mastoid air cells. Small amount cerumen is present within t he bilateral external auditory canals. IMPRESSION: No appreciable acute intracr anial abnormalities. Additional findings as noted above. Trixie Hinds(R)(CT), RGermanTGerman(R) IMG CT PROCEDURES documented in this encounter Visit Diagnoses Not on filedocumented in this encounter
--- OUTSIDE RECORDS SUMMARY | 2022-02-10 14:44 | XMS_ITS | Encounter Summary ---
:1985 Author Organization [facility] Address [address] [place] [address] Care Team Providers Name Role Phone Unavailable Primary Care Provider Unavailable Encounter Details Date Type Department Care Team Description 06/17/2011 Hospital Encounter HX [facility] Tania Franklin M.D. Social History Tobacco Use Types Packs/Day Years Used Date Smoking Tobacco: Never Assessed Sex Assigned at Date Recorded Male 10/17/2017 10:58 AM CDT documented as of this encounter Last Filed Vital Signs Vital Sign Reading Time Taken Comments Blood Pressure 98/68 06/17/2011 3:07 PM CDT Pulse 80 06/17/2011 3:07 PM CDT Temperature - - Respiratory Rate 20 06/17/2011 3:07 PM CDT Oxygen Saturation - - Inhaled Oxygen Concentration - - Weight 61.8 kg (136 lb 3.9 oz) 06/17/2011 3:07 PM CDT Height 164 cm (5' 4.57) 06/17/2011 3:07 PM CDT Body Mass Index 22.98 06/17/2011 3:07 PM CDT documented in this encounter Medications at Time of Discharge Medication Sig Dispensed Refills Start Date End Date clonazePAM (KlonoPIN) 2 mg tablet Twice A Day 0 0 08/27/2010 documented as of this encounter Progress Notes Federico Andino M.D. - 06/17/2011 12:00 AM CDT [id number] CHIEF COMPLAINT/REASON FOR VISIT Follow up anxiety, depression and ADHD. HISTORY OF PRESENT ILLNESS This 25-year-old white male is in for a followup on his anxiety, depression and ADHD. He admits that he really feels much better from a mood aspect. Still feels that his anxiety is at times fairly overwhelming and he has really not been able to decrease the use of his Xanax, still pretty much averaging taking 1 twice a day. He does admit he is getting out more. He is able to tolerate being around people and he has gone out for walks. He has continued to try and do a little more reading. He still is not certain that he can tolerate the increased stress that would be related to trying to hold down a job. He has not been into the emergency room and he states in general his headaches have definitely been better, although did have one a couple of days ago. He has been tolerating the Zoloft. He has now been on the 100 mg a day for about 4 weeks. He feels that really has helped his overall mood is feeling of depression, but he is not so certain that it has done a lot for his anxiety and panic attacks. CURRENT MEDICATIONS Adderall XR 25 mg p.o. q. day Klonopin 2 mg 1 tablet twice a day Xanax 1 mg 1 tablet twice a day p.r.n. anxiety/panic attacks Zoloft 100 mg p.o. q. day. Sumatriptan 50 mg p.r.n. Naproxen 500 mg up to b.i.d. p.r.n. Zofran 4 mg sublingual q. 6 hours p.r.n. nausea. Multivitamin 1 a day. VITAL SIGNS BLOOD PRESSURE: 98/68 WEIGHT: 61.8 kg PHYSICAL EXAM GENERAL: Well-developed male in no acute distress. MENTAL STATUS: He is alert, oriented and appropriate. PHQ-9 is now coming in with a score of 0. IMPRESSION/REPORT/PLAN 1) Depression improved. PLAN: Continue with the Zoloft at 100 mg p.o. daily. We will plan on rechecking at this point in 2 months. Again, reviewed setting goals for himself and trying to continue to increase his activities. 2) Anxiety with panic attacks. PLAN: Continue with the Klonopin 2 mg twice a day and I did provide him with Xanax 1 mg to take up to twice a day, but recommended that he keep kind of a diary on how often he truly needs the Xanax with a goal of getting it down to just maybe a couple of times a week as opposed to routinely twice a day. Again, we will see him back in 2 months and reassess. 3) ADHD. PLAN: He is really doing well on the Adderall so continue with the 25 mg daily and again 2 months' were provided and we will reassess in 2 months' time. Federico Franklin M.D. srw Electronically Signed By: FEDERICO FRANKLIN MD On: 06/21/2011 06:40 PM Source: [facility] MHSDOLBEYNONRADSYS Document Id: [id number] documented in this encounter Miscellaneous Notes Miscellaneous - Federico Andino M.D. - 06/17/2011 3:32 PM CDT Ambulatory Patient Summary [facility] [address], [place] [address] Visit Information Name: ALEJANDRA ADHIKARI Current Date: 06/17/2011 15:32:17 Physicians Attending Provider: FEDERICO FRANKLIN MD Primary [...] tablet) 100 mg Oral once a day anxiety, depression [...] Appointments found Your Goals/Additional instructions: Source: [facility] POWERCold Futures Document Id: [id number] Miscellaneous - Federico Andino M.D. - 06/17/2011 3:32 PM CDT Ambulatory Depart Summary [facility] [address] [place] [id number] Visit Information Name: ALEJANDRA ADHIKARI Visit Date: 06/17/2011 15:32:17 Attending Provider: FEDERICO FRANKLIN MD Primary Care Provider: BARRETT NIEVES LYLE ALEJANDRA has been given the following list of [...] tablet) 100 mg Oral once a day anxiety, depression [...] provider for clarification. Additional Information: Source: [facility] Induction Manager Document Id: [id number] Stacey Holley, R.M.A. - 06/17/2011 3:12 PM CDT PHQ-9 PHQ-9 Entered On: 06/17/2011 15:14 CDT Performed On: 06/17/2011 15:12 CDT by STACEY CAUSEY PHQ-9 Little interest or pleasure in doing things : Not at all Feeling down, depressed, or hopeless : Not at all Trouble falling or staying asleep, or sleeping too much : Not at all Feeling tired or having little energy : Not at all Poor appetite or overeating : Not at all Feeling bad about yourself or that you are a failure : Not at all Trouble concentrating on things : Not at all Moving or speaking slowly; restless or fidgety : Not at all Thoughts that you would be better off /hurting self : Not at all PHQ-9 Calculated Score : 0 Problems make work, home, or dealing with others : Somewhat difficult STACEY CAUSEY - 06/17/2011 15:12 CDT Source: [facility] Induction Manager Document Id: [id number] CDT!13 Stacey Holley, R.M.A. - 06/17/2011 3:07 PM CDT Adult Icu Nurse Intake/History Adult Icu Nurse Intake/History Entered On: 06/17/2011 15:10 CDT Performed On: 06/17/2011 15:07 CDT by STACEY CAUSEY Intake Chief Complaint : FOLLOW UP ANXIETY ADHD DEPRESSION Temperature Oral : 36.4C(Converted to: 97.5DegF) Peripheral Pulse Rate : 80/min Respiratory Rate : 20/min Heart Rhythm : Regular Systolic Blood Pressure : 98mmHg Diastolic Blood Pressure : 68mmHg NIBP Mean : 78mmHg BP Location : Right upper extremity Blood Pressure Cuff Size : Regular Height : 164cm(Converted to: 5ft 5inch(es), 64.57inch(es)) Actual Weight : 61.8kg(Converted to: 136lb 4oz) Dosing Weight Clinic : 61.80kg Clinic BSA : 1.68 Body Mass Index : 22.98kg/m2 STACEY CAUSEY - 06/17/2011 15:07 CDT Subjective Pain Symptoms : No STACEY CAUSEY - 06/17/2011 15:07 CDT Dependent Habits Tobacco Use/Currently Using : Yes Exposure to Tobacco Smoke : Patient smokes Smoking Status : Current every day smoker STACEY CAUSEY - 06/17/2011 15:07 CDT Tobacco Use Grid Type : Cigarettes Chewing tobacco Cigarette Use Packs/Day : 1.0 STACEY CAUSEY - 06/17/2011 15:07 CDT STACEY CAUSEY - 06/17/2011 15:07 CDT Caffeine Use Grid Caffeine Use : Current Type : Soft drinks Frequency : Daily Amount : 3 cans daily STACEY CAUSEY - 06/17/2011 15:07 CDT Allergy Allergies (Active) NKA Estimated Onset Date: Unspecified ; Created By: STACEY CLARK; Reaction Status: Active ; Category: Drug ; Substance: NKA ; Type: Allergy ; Updated By: STACEY CLARK; Reviewed Date: 05/20/2011 14:54 CDT [facility]uresCHART Document Id: [id number] CDT!35 documented in this encounter Plan of Treatment Not on filedocumented as of this encounter Visit Diagnoses Not on filedocumented in this encounter
--- OUTSIDE RECORDS SUMMARY | 2022-02-10 14:44 | XMS_ITS | Encounter Summary ---
:1985 Author Organization [facility] Address [address] [place] [address] Care Team Providers Name Role Phone Unavailable Primary Care Provider Unavailable Encounter Details Date Type Department Care Team Description 08/10/2010 Hospital Encounter HX [facility] Prashanth Nieves P.A.-C. [address] [place], [place] [phone] (Wo rk) Social History Tobacco Use Types Packs/Day Years Used Date Smoking Tobacco: Never Assessed Sex Assigned at Date Recorded Male 10/17/2017 10:58 AM CDT documented as of this encounter Miscellaneous Notes Miscellaneous - Barrett Nieves PKristin.-Teodoro., P.A. - 08/16/2010 11:59 AM CDT Results Notification Document Contains Addenda Addendum by VIANEY TURNER on 16 August 2010 13:25:05 CDT pt aware From: BARRETT NIEVES To: VIANEY TURNER Sent: 08/16/2010 11:59:22 CDT ! Show up: 08/16/2010 11:58:00 CDT Subject: Results Notification Actions: Notify patient of results Due Date/Time: 08/16/2010 11:58:00 CDT Source: [facility] POWERCHART Document Id: [id number] documented in this encounter Plan of Treatment Not on filedocumented as of this encounter Visit Diagnoses Not on filedocumented in this encounter Additional Health Concerns Assessment Noted Time PHQ-9 Depression Total Score: 8 11/02/2009 12:03 PM CD T documented as of this encounter
--- OUTSIDE RECORDS SUMMARY | 2022-02-10 14:44 | XMS_ITS | Encounter Summary ---
:1985 Author Organization [facility] Address [address] [place] [address] Care Team Providers Name Role Phone Unavailable Primary Care Provider Unavailable Encounter Details Date Type Department Care Team Description 12/21/2010 Hospital Encounter HX NO MAPPING Dante Mcdaniel M.D. [address] [place], [place] [phone] (Wo rk) Social History [...] Priority Date/Time Associated Diagnosis Comme nts DX ABDOMEN SUPINE Routine 12/21/2010 12:58 PM Res ults for this WITH UPRIGHT OR CDT procedure ar e in DECUBITUS 2 VIEWS the result s section. documented in this encounter Results DX Abdomen Supine with Upright or Decubitus 2 Views (12/21/2010 12:58 PM CDT) Anatomical Region Laterality Modality Abdomen Right Radiographic Imaging Specimen (Source) Anatomical Collection Method Collection Time Re ceived Time Location / / Volume Laterality 12/21/2010 12:58 PM CDT Addenda Addendum by Provider, Delvin Pathak 12/21/2010 12:58 PM CDT RAD^^^OW XR Abdomen 2 Views 12/21/2010 12:58:36 Narrative 12/21/2010 1:28 PM CDT Indication Abdominal pain. Findings: Normal bowel gas pattern. ??No free air. ??Negative. Antony Perdue M.D. dmp ?D: ? THIS IS AN ELEC TRONICALLY VERIFIED REPORT 12/21/2010 1:28 PM: ??Caterina Knapp Procedure Note Antony Perdue M.D. / Provider, Delvin Pathak - 07/28/2016 Indication Abdominal pain. Findings: Normal bowel gas pattern. No free air. N egative. Antony Perdue M.D. dmp T: 12/21/2010 01:28 pm THIS IS AN ELECTRONICALLY VERIFIED REPORT 12/21/2010 1:28 PM: Antony Perdue M.D. Historical Provider IMG DIAGNOSTIC IMAGING PROCE DURES documented in this encounter Visit Diagnoses Not on filedocumented in this encounter Additional Health Concerns Assessment Noted Time PHQ-9 Depression Total Score: 8 11/02/2009 12:03 PM CD T documented as of this encounter
--- OUTSIDE RECORDS SUMMARY | 2022-02-10 14:44 | XMS_ITS | Encounter Summary ---
:1985 Author Organization [facility] Address [address] [place] [address] Care Team Providers Name Role Phone Unavailable Primary Care Provider Unavailable Encounter Details Date Type Department Care Team Description 03/12/2011 Hospital Encounter HX NO MAPPING Dante Mcdaniel M.D. [address] [place], [place] [phone] (Wo rk) Social History [...] Diagnosis Comme nts DX ABDOMEN SUPINE Routine 03/12/2011 4:48 AM Resu lts for this WITH UPRIGHT OR TELEPHONE MESSENGER procedure ar e in DECUBITUS 2 VIEWS the result s section. documented in this encounter Results DX Abdomen Supine with Upright or Decubitus 2 Views (03/12/2011 4:48 AM TELEPHONE MESSENGER) Anatomical Region Laterality Modality Abdomen Right Radiographic Imaging Specimen (Source) Anatomical Collection Method Collection Time Re ceived Time Location / / Volume Laterality 03/12/2011 4:48 AM TELEPHONE MESSENGER Addenda Addendum by Provider, Delvin Pathak 03/12/2011 4:48 AM TELEPHONE MESSENGER RAD^^^OW XR Abdomen 2 Views 03/12/2011 04:48:01 Narrative 03/14/2011 9:10 AM TELEPHONE MESSENGER Indication Nausea, abdominal pain. Comparison: ??12/21/2010. Findings: ??Moderate rectal stool. ??No obstruction or ileus. ??Otherwise negative abdomen. ??No free air. Antony Perdue M.D. dmp ?D: ? THIS IS AN ELEC TRONICALLY VERIFIED REPORT 03/14/2011 9:10 AM: ??Antony Perdue M.D. Procedure Note Antony Perdue M.D. / ProviderLawson M.D. - 07/26/2016 Indication Nausea, abdominal pain. Comparison: 12/21/2010. Findings: Moderate rectal stool. No obst ruction or ileus. Otherwise negative abdomen. No free air. Antony Perdue M.D. dmp T: 03/14/2011 09:10 am THIS IS AN ELECTRONICALLY VERIFIED REPORT 03/14/2011 9:10 AM: Antony Perdue M.D. Jennifer Hinds(R)(CT), R.T.(R) IMG DIAGNOSTIC IM AGING PROCEDURES documented in this encounter Visit Diagnoses Not on filedocumented in this encounter Additional Health Concerns Assessment Noted Time PHQ-9 Depression Total Score: 7 01/26/2011 9:15 AM TELEPHONE MESSENGER documented as of this encounter
--- OUTSIDE RECORDS SUMMARY | 2022-02-10 14:44 | XMS_ITS | Encounter Summary ---
:1985 Author Organization [facility] Address [address] [place] [address] Care Team Providers Name Role Phone Unavailable Primary Care Provider Unavailable Encounter Details Date Type Department Care Team Description 04/27/2011 Hospital Encounter HX NO MAPPING Dante Mcdaniel M.D. [address] [place], [place] [phone] (Wo rk) Social History [...] Depression Total Score: 7 01/26/2011 9:15 AM INSPECTOR PENETRANT documented as of this encounter
--- OUTSIDE RECORDS SUMMARY | 2022-02-10 14:44 | XMS_ITS | Encounter Summary ---
:1985 Author Organization [facility] Address [address] [place] [address] Care Team Providers Name Role Phone Unavailable Primary Care Provider Unavailable Encounter Details Date Type Department Care Team Description 12/21/2010 Hospital Encounter [facility] Agueda Velasquez M.D. [address] [place] [address] (Wo rk) Social History Tobacco [...] encounter Progress Notes Michela Velasquez M.D. - 12/21/2010 12:00 AM CDT [id number] HISTORY OF PRESENT ILLNESS A 25-year-old male with multiple complaints, most significant around loss of appetite and loss of weight significantly recently also. He feels that he may have been exposed to either hepatitis B or HIV via a catheter test that was done in [place]. He had apparently been notified by letter that there may have been contamination of the instruments used. This is at the patient's word. I do not have any records indicating any of this. At any rate, the patient has these concerns. IMPRESSION/REPORT/PLAN We were going to send him off to the lab to have HIV and hepatitis tests done and then have him follow up with primary care to evaluate his loss of appetite, but patient wishes to have this done on a more emergent basis, so he wants to go to the ER. This was discussed with Dr. Dante Mcdaniel, who is expecting him. Michela Velasquez M.D. cla Electronically Signed By: MICHELA VELASQUEZ MD On: 12/27/2010 08:10 AM Source: [facility] MHSDOLBEYNONRADSYS Document Id: [id number] documented in this encounter Miscellaneous Notes Miscellaneous - Conversion, Historical Provider Ser - 12/21/2010 10:45 AM CDT Adult Missing Persons Investigator Intake/History Adult Missing Persons Investigator Intake/History Entered On: 12/21/2010 10:50 CDT Performed On: 12/21/2010 10:45 CDT by BRIDGER ZHENG Intake Chief Complaint: Pt states has been losing weight, feels terrible, no motivation, feeling down, abd pain, diarrhea, no able to eat, feels stressed and states that he would like to get back on Xanax Temperature Oral: 36.5C(Converted to: 97.7DegF) Peripheral Pulse Rate: 68/min Respiratory Rate: 20/min Systolic Blood Pressure: 106mmHg Diastolic Blood Pressure: 66mmHg NIBP Mean: 79mmHg BP Location: Right upper extremity Actual Weight: 60.100kg(Converted to: 132lb 8oz) Dosing Weight Clinic: 60.10kg BRIDGER ZHENG - 12/21/2010 10:45 CDT General Info Information Given By: Patient Preferred Communication Mode: Verbal Languages: Maori BRIDGER ZHENG - 12/21/2010 10:45 CDT Subjective Pain Symptoms: No BRIDGER ZHENG 12/21/2010 10:45 CDT Dependent Habits Tobacco Use/Currently Using: Yes Exposure to Tobacco Smoke: Patient smokes Smoking Status: Smoker BRIDGER ZHENG 12/21/2010 10:45 CDT Tobacco Use Grid Type: Cigarettes Chewing tobacco Cigarette Use Packs/Day: 1.0 BRIDGER ZHENG 12/21/2010 10:45 CDT BRIDGER ZHENG 12/21/2010 10:45 CDT Caffeine Use Grid Caffeine Use: Current Type: Soft drinks Frequency: Daily Amount: 3 cans daily BRIDGER ZHENG S - 12/21/2010 10:45 CDT Allergy Allergies (Active) NKA Estimated Onset Date: Unspecified ; Created By: IMTIAZ CLARK; Reaction Status: Active ; Category: Drug ; Substance: NKA ; Type: Allergy ; Updated By: IMTIAZ CLARK; Reviewed Date: 12/21/2010 10:42 CDT Source: [employer] Document Id: [id number] CDT!34 documented in this encounter Plan of Treatment Not on filedocumented as of this encounter Visit Diagnoses Not on filedocumented in this encounter Additional Health Concerns Assessment Noted Time PHQ-9 Depression Total Score: 8 11/02/2009 12:03 PM CD T documented as of this encounter
--- OUTSIDE RECORDS SUMMARY | 2022-02-10 14:44 | XMS_ITS | Encounter Summary ---
:1985 Author Organization [facility] Address [address] [place] [address] Care Team Providers Name Role Phone Unavailable Primary Care Provider Unavailable Encounter Details Date Type Department Care Team Description 01/25/2011 Hospital Encounter HX [facility] Prashanth Nieves P.A.-C. [address] [place] [address] (Wo rk) Social History Tobacco Use Types [...] Progress Notes Barrett Nieves P.A.-C., P.A. - 01/25/2011 12:00 AM CST [id number] CHIEF COMPLAINT / REASON FOR VISIT Medication refill and followup. HISTORY OF PRESENT ILLNESS Tarik is a 25-year-old with a history of significant anxiety and depression who is here today for followup and medication recheck. He is requesting refill of his Xanax. He uses this for acute anxiety symptoms. He is on Klonopin for long acting anxiolytic. It seems to be working pretty well for him. He uses the Xanax maybe once daily or less. He had been having problems with headaches. This has seemed to improve. PHQ9 score today is 7. He does continue to have some symptoms of fatigue and had weight loss. He was seen in the Emergency Room about a month ago, where laboratory testing was normal, including normal CBC, TSH and chemistries. We discussed vitamin D deficiency and it relating to fatigue and depression. He would like to have his vitamin D level checked. CURRENT MEDICATIONS Klonopin 2 mg twice daily. Sertraline 100 mg daily. Suboxone 2 mg/0.5 mg 1 tablet twice daily. Zofran as needed for nausea. Imitrex 50 mg as needed for migraine. Multivitamin daily. Naprosyn 500 mg twice daily as needed. Xanax 1 mg as needed. ALLERGIES No known drug allergies. VITALS SIGNS TEMP: 36.7 Celsius PULSE: 76 RESP RATE: 18 BLOOD PRESSURE: 98/60 WEIGHT: 63.4 kg PHYSICAL EXAM GENERAL: No acute distress. Mood and affect are appropriate. He is much less anxious than at most recent previous visits. He maintains good eye contact. Normal thought process and speech pattern. Formal physical exam was not performed. IMPRESSION / REPORT / PLAN 1) Anxiety and depression. 2) Generalized malaise and fatigue. PLAN: I did renew Xanax 1 mg (#30 with 1 refill). This is for acute symptoms. Otherwise, continue with his sertraline and Klonopin. We will obtain laboratories for vitamin D level. He will be notified of the results when available. Otherwise, he will follow up in 3-6 months as needed. Barrett Nieves P.A.-C. srw Electronically Signed By: BARRETT NIEVES On: 01/31/2011 04:46 PM Source: [facility] MHSDOLBEYNONRADSYS Document Id: [id number] PLACER documented in this encounter Nursing Notes Conversion, Historical Provider Ser - 01/25/2011 4:45 PM CST Patient called in for a refill of his Klonopin on 01/06/11. Patient picked up the prescription per the Pharmacist on 01/07/11. He still has 2 remaining refills left. He is allowed to fill them 1 time a month. Pharmacist has had issues with the patient and he has continually wants to transfer his medications to multiple locations within days of each other. Patient was notified that he has 2 RF's at [facility] and he can only fill them 1 time a month. Electronically Signed By: CORIN ARRIOLA On: 01/25/2011 04:50 PM Source: [employer] Document Id: [id number] documented in this encounter Miscellaneous Notes Miscellaneous - Conversion, Historical Provider Ser - 01/26/2011 9:15 AM KILN PLACER PHQ-9 PHQ-9 Entered On: 01/26/2011 9:15 KILN PLACER Performed On: 01/26/2011 9:15 KILN PLACER by CORIN ARRIOLA PHQ-9 Little interest or pleasure in doing things : Several days Feeling down, depressed, or hopeless : Not at all Trouble falling or staying asleep, or sleeping too much : Several days Feeling tired or having little energy : Several days Poor appetite or overeating : Not at all Feeling bad about yourself or that you are a failure : Not at all Trouble concentrating on things : More than half the days Moving or speaking slowly; restless or fidgety : More than half the days Thoughts that you would be better off /hurting self : Not at all PHQ-9 Calculated Score : 7 Problems make work, home, or dealing with others : Somewhat difficult CORIN ARRIOLA - 01/26/2011 9:15 KILN PLACER [facility] Document Id: [id number] KILN PLACER!13 Miscellaneous - Conversion, Historical Provider Ser - 01/25/2011 3:24 PM KILN PLACER Adult Irrigator Gravity Flow Intake/History Adult Irrigator Gravity Flow Intake/History Entered On: 01/25/2011 15:26 KILN PLACER Performed On: 01/25/2011 15:24 KILN PLACER by CORIN ARRIOLA Intake Chief Complaint : FU Med CHeck Temperature Oral : 36.7C(Converted to: 98.1DegF) Peripheral Pulse Rate : 76/min Respiratory Rate : 18/min Systolic Blood Pressure : 98mmHg Diastolic Blood Pressure : 60mmHg NIBP Mean : 73mmHg BP Location : Right upper extremity Actual Weight : 63.4kg(Converted to: 139lb 12oz) Weight Source : Standing scale Dosing Weight Clinic : 63.40kg CORIN ARRIOLA 01/25/2011 15:24 KILN PLACER General Info Information Given By : Patient Preferred Communication Mode : Verbal Languages : Azeri CORIN ARRIOLA 01/25/2011 15:24 KILN PLACER Subjective Pain Symptoms : No CORIN ARRIOLA 01/25/2011 15:24 KILN PLACER Dependent Habits Tobacco Use/Currently Using : Yes Exposure to Tobacco Smoke : Patient smokes Smoking Status : Current every day smoker CORIN ARRIOLA 01/25/2011 15:24 KILN PLACER Tobacco Use Grid Type : Cigarettes Chewing tobacco Cigarette Use Packs/Day : 1.0 CORIN ARRIOLA 01/25/2011 15:24 KILN PLACER CORIN ARRIOLA 01/25/2011 15:24 KILN PLACER Caffeine Use Grid Caffeine Use : Current Type : Soft drinks Frequency : Daily Amount : 3 cans daily CORIN ARRIOLA 01/25/2011 15:24 KILN PLACER Allergy Allergies (Active) NKA Estimated Onset Date: Unspecified ; Created By: IMTIAZ CLARK; Reaction Status: Active ; Category: Drug ; Substance: NKA ; Type: Allergy ; Updated By: IMTIAZ CLARK; Reviewed Date: 01/25/2011 15:23 KILN PLACER Source: [facility] POWERCHART Document Id: [id number] KILN PLACER!35 documented in this encounter Plan of Treatment Not on filedocumented as of this encounter Visit Diagnoses Not on filedocumented in this encounter Additional Health Concerns Assessment Noted Time PHQ-9 Depression Total Score: 7 01/26/2011 9:15 AM KILN PLACER documented as of this encounter
--- OUTSIDE RECORDS SUMMARY | 2022-02-10 14:45 | XMS_ITS | Encounter Summary ---
:1985 Author Organization [facility] Address [address] [place] [address] Care Team Providers Name Role Phone Unavailable Primary Care Provider Unavailable Encounter Details Date Type Department Care Team Description 03/29/2010 Hospital Encounter HX [facility] E[facility] Provider, Historic al Social History Tobacco Use Types Packs/Day Years Used Date Smoking Tobacco: Never Assessed Sex Assigned at Date Recorded Male 10/17/2017 10:58 AM CDT documented as of this encounter Progress Notes Conversion, Historical Provider Ser - 03/29/2010 12:00 AM CST [id number] CHIEF COMPLAINT / REASON FOR VISIT Cough and chronic sinusitis. HISTORY OF PRESENT ILLNESS The patient has had a recent cough. His cough is nonproductive. He has not had any fevers. He is concerned that possibly the cough might cause a delay in his surgery. The patient continues to have significant problems with paranasal and frontal cephalgia. He has had the cephalgia every day. The patient has not had any change in his symptoms over what they were on March 10, 2010. He continues to have bilateral nasal obstruction. He also continues to have a diminished sense of smell. He has intermittent problems with rhinorrhea. He continues to have significant problems with postnasal drainage. The patient has been found to have almost complete pansinusitis on his recent CT scan of the sinuses. CURRENT MEDICATIONS Reviewed and no changes per EMR. ALLERGIES The patient has no known drug allergies. SYSTEMS REVIEW Unchanged. PAST MEDICAL / SURGICAL HISTORY Unchanged. VITAL SIGNS Reviewed and no changes per EMR. PHYSICAL EXAM CONSTITUTIONAL: The patient has a normal general appearance with a normal body habitus. The patient seems to have a normal ability to communicate and has a normal quality of voice. HEAD/FACE: No scars or lesions can be visualized grossly on examination of the face or the neck. With palpation and percussion of the face, there is no definite presence of sinus tenderness. Examination of the salivary glands is within normal limits bilaterally. The patient's facial strength is normal bilaterally. NOSE: The nasal dorsum and tip are without significant gross deviation or deformity. The patient has had his previous closed nasal fractures. There is significant deviation of the nasal septum. The nasal mucosa does not show any significant abnormalities except for the mucosa of the inferior turbinates being boggy. There is very significant bilateral turbinate hypertrophy. No significant nasal discharge can be seen on either side of the nose. ORAL CAVITY: The lips and buccal mucosa are within normal limits. The tongue is within normal limits. [place]'s and Stensen's ducts are within normal limits. OROPHARYNX: The oropharynx shows no erythema. The tonsils are of minimal size or have been removed. The uvula is in the midline, and the soft palate is within normal limits. NECK: Examination of the neck shows no masses or asymmetry in the tracheal position. Examination of the thyroid shows no enlargement, and there is no tenderness of the thyroid. There is no evidence of cervical adenopathy bilaterally. RESPIRATORY: Inspection of the chest shows symmetry in expansion of the chest with respiration. LYMPHATIC: Palpation of the neck shows no palpable cervical adenopathy of either side of the neck. IMPRESSION / REPORT / PLAN 1) Recent cough, which is nonproductive and probably will not delay his surgery. 2) Recent upper respiratory tract infection. 3) Chronic sinusitis of the frontal, ethmoid, and maxillary sinuses bilaterally. 4) Deviation of the nasal septum. 5) Significant bilateral turbinate hypertrophy. 6) Chronic bilateral nasal obstruction. 7) Hyposmia. 8) History of closed fractures of the nasal bones. PLAN: I think the patient has just had his cough with his recent upper respiratory tract infection. The patient feels as though recently his cough has been improving. I do not think his cough will delay his surgery. I told him to let me know if he starts developing any fevers or if the cough is becoming productive. I continue to recommend that the patient have his endoscopic sinus surgery and nasal surgery. I have discussed with him the indications, risks, and alternatives to surgery. I have answered all of his questions, and the patient has signed a multiple page consent. He will probably have his surgery sometime within the next week. Santy Mccauley II, M.D. lucero Electronically Signed By:SANTY MCCAULEY II, MD On 04/14/2010 10:39 PM Source: [facility] MHSDOLBEYNONRADSYS Document Id: [id number] documented in this encounter Miscellaneous Notes Miscellaneous - Vanessa Barba - 03/29/2010 11:38 AM CST Adult Sap Gatherer Intake/History Adult Sap Gatherer Intake/History Entered On: 03/29/2010 11:43 ROD PULLER AND COILER Performed On: 03/29/2010 11:38 ROD PULLER AND COILER by VANESSA BARBA Intake Chief Complaint: Recheck prior to surgery Temperature Oral: 37.2C(Converted to: 99.0DegF) Peripheral Pulse Rate: 72/min Systolic Blood Pressure: 102mmHg Diastolic Blood Pressure: 60mmHg NIBP Mean: 74mmHg BP Location: Right upper extremity VANESSA BARBA - 03/29/2010 11:38 ROD PULLER AND COILER Subjective Pain Symptoms: No VANESSA BARBA - 03/29/2010 11:38 ROD PULLER AND COILER Dependent Habits Tobacco Use/Currently Using: Yes Exposure to Tobacco Smoke: Other: chews VANESSA BARBA - 03/29/2010 11:38 ROD PULLER AND COILER Tobacco Use Grid Type: Cigarettes VANESSA BARBA - 03/29/2010 11:38 ROD PULLER AND COILER Caffeine Use Grid Caffeine Use: None VANESSA BARBA - 03/29/2010 11:38 ROD PULLER AND COILER Allergies Allergies (Active) NKA Estimated Onset Date: Unspecified ; Created By: IMTIAZ CLARK; Reaction Status: Active ; Category: Drug ; Substance: NKA ; Type: Allergy ; Updated By: IMTIAZ CLARK; Reviewed Date: 03/29/2010 11:36 ROD PULLER AND COILER Source: [facility] POWERCHART Document Id: [id number] ROD PULLER AND COILER!20 PULLER AND COILER documented in this encounter Plan of Treatment Not on filedocumented as of this encounter Visit Diagnoses Not on filedocumented in this encounter Additional Health Concerns Assessment Noted Time PHQ-9 Depression Total Score: 8 11/02/2009 12:03 PM CD T documented as of this encounter
--- OUTSIDE RECORDS SUMMARY | 2022-02-10 14:45 | XMS_ITS | Encounter Summary ---
:1985 Author Organization [facility] Address [address] [place] [address] Care Team Providers Name Role Phone Unavailable Primary Care Provider Unavailable Encounter Details Date Type Department Care Team Description 07/11/2010 Hospital Encounter HX NO MAPPING Dante Mcdaniel M.D. [address] [place], [place] [phone] (Wo rk) Social History Tobacco Use Types Packs/Day Years Used Date Smoking Tobacco: Never Assessed Sex Assigned at Date Recorded Male 10/17/2017 10:58 AM CDT documented as of this encounter Plan of Treatment Not on filedocumented as of this encounter Procedures Procedure Name Priority Date/Time Associated Diagnosis Comme nts CT ABDOMEN KIDNEY Routine 07/11/2010 12:23 PM Res ults for this STONE WITHOUT IV CDT procedure a re in CONTRAST the results section. documented in this encounter Results CT Abdomen Kidney Stone without IV Contrast (07/11/2010 12:23 PM CDT) Anatomical Region Laterality Modality Abdomen, Pelvis Computed Tomography Specimen (Source) Anatomical Collection Method Collection Time Re ceived Time Location / / Volume Laterality 07/11/2010 12:23 PM CDT Addenda Addendum by Provider, Delvin Pathak 07/11/2010 12:23 PM CDT RAD^^^OW CT Stone Protocol 07/11/2010 12:23:57 Impressions 07/20/2010 4:[address] of the abdomen and pelvis is unremarkable for acute findings. No CT findings to explain etiology of th e patient's left lower quadrant abdominal pain, back pain. Abdiel Stein, ?? alb ?D: 0 07/20/2010T: 07/20/2010 04:05 pm M.D. ? THIS IS AN ELEC TRONICALLY VERIFIED REPORT 07/20/2010 4:36 PM: ??Compa Schroeder. Narrative 07/20/2010 4:[address] of the abdomen/pelvis. INDICATION: Left lower quadrant abdominal pain, back pain. FINDINGS: Preliminary report generated by virtual Radiology. Lung Bases: Clear. Abdomen and Pelvis: Lack of IV and oral contrast limits sensitivity for evaluation of organs and soft tissues. Normal noncontrast CT appearance of the liver, gallbladder, spleen, bilateral adrenal glands, kidneys, ureters, urinar y bladder. ??No evidence of appendicitis. ??No focal fluid collectio ns or abscess. ??No free intraperitoneal air. Procedure Note Abdiel Stein M.D. / Provider, Tamra mckeon M.D. - 07/27/[address] of the abdomen/pelvis. INDICATION: Left lower quadrant abdominal pain, back pain. FINDINGS: Preliminary report generated by [facility]. Lung Bases: Clear. Abdomen and Pelvis: Lack of IV and oral contrast limits sensitivity for evaluation of organs and soft tissues. Normal noncontrast CT appearance of the liver, gallbladder, spleen, bilateral adrenal glands, kidneys, ureters, urinar y bladder. No evidence of appendicitis. No focal fluid collections or abscess. No free intraperitoneal air. IMPRESSION: Noncontrast CT of the abdomen and pelvis is unremarkable for acute findings. No CT findings to explain etiology of th e patient's left lower quadrant abdominal pain, back pain. mar Schroeder T: 04:05 pm Delvin THIS IS AN ELECTRONICALLY VERIFIED REPORT 07/20/2010 4:36 PM: Caterina Schroeder Historical Provider IMG CT PROCEDURES documented in this encounter Visit Diagnoses Not on filedocumented in this encounter Additional Health Concerns Assessment Noted Time PHQ-9 Depression Total Score: 8 11/02/2009 12:03 PM CD T documented as of this encounter
--- OUTSIDE RECORDS SUMMARY | 2022-02-10 14:45 | XMS_ITS | Encounter Summary ---
:1985 Author Organization [facility] Address [address] [place] [address] Care Team Providers Name Role Phone Unavailable Primary Care Provider Unavailable Encounter Details Date Type Department Care Team Description 03/10/2010 Hospital Encounter HX [facility] Luis Rodriguez Jr., M.D. [address], [place] [phone] (Wo rk) Social History Tobacco Use Types Packs/Day Years Used Date Smoking Tobacco: Never Assessed Sex Assigned at Date Recorded Male 10/17/2017 10:58 AM CDT documented as of this encounter Progress Notes Ramon Fagan, CGermanOGermanT. - 03/10/2010 12:59 PM CST [facility] Exam [facility] Exam Entered On: 03/10/2010 13:15 ONLINE MARKETING ANALYST Performed On: 03/10/2010 12:59 ONLINE MARKETING ANALYST by RAMON FAGAN Chief Complaint and History Chief Complaint: Other: Complete exam Had glasses in the past. Pt. c/o difficulty at distance and when he turns his head his vision trails. Has problems with dryness and light sens.-would like transitions.lHas headaches 3-4 times per week. Ros: headache today RAMON FAGAN - 03/10/2010 12:59 ONLINE MARKETING ANALYST Vision Testing Visual Acuity: Without correction Eye, Right w/o Correction: 20/20 Eye, Left w/o Correction: 20/20 Eye, Right w/o Correction Comment: J1+ Eye, Left w/o Correction Comment: J1+ Other Measurement Comment: MRx: -.25 sph 20/20 -.50 sph 20/20 RAMON FAGAN - 03/10/2010 12:59 ONLINE MARKETING ANALYST Ocular Testing EOMS: Normal Pupils: Normal Comment: 6-4 6-4 Confrontation Sharpe: Normal RAMON FAGAN - 03/10/2010 12:59 ONLINE MARKETING ANALYST Eye Drops Exam Other Medication Eye Drops: N/M Other Medication Eye Drops Eye: Both eyes Other Medication Eye Drops Amnt: One drop Other Medication Eye Drops Time: 13:15 ONLINE MARKETING ANALYST RAMON FAGAN - 03/10/2010 12:59 ONLINE MARKETING ANALYST Glaucoma Screen Glaucoma Screen Grid IOP Right: 18 IOP Left: 17 RAMON FAGAN Wilfrido - 03/10/2010 12:59 ONLINE MARKETING ANALYST Source: [facility] POWERCHART Document Id: [id number] ONLINE MARKETING ANALYST!25 NE MARKETING ANALYST Luis Lancaster M.D. - 03/10/2010 12:00 AM CST [id number] HISTORY OF PRESENT ILLNESS Here for seeing ghosting around objects, also trouble at night. IMPRESSION / REPORT / PLAN 1) Myopia. Rule out any neurological condition. Plan: Visual field at his next convenience. New glasses. Delvin Faust Electronically Signed By:LUIS LANCASTER MD On 03/12/2010 03:27 PM Source: [facility] MHSDOLBEYNONRADSYS Document Id: [id number] NE MARKETING ANALYST documented in this encounter Plan of Treatment Not on filedocumented as of this encounter Visit Diagnoses Not on filedocumented in this encounter Additional Health Concerns Assessment Noted Time PHQ-9 Depression Total Score: 8 11/02/2009 12:03 PM CD T documented as of this encounter
--- OUTSIDE RECORDS SUMMARY | 2022-02-10 14:45 | XMS_ITS | Encounter Summary ---
:1985 Author Organization [facility] Address [address] [place] [address] Care Team Providers Name Role Phone Unavailable Primary Care Provider Unavailable Encounter Details Date Type Department Care Team Description 05/11/2010 Hospital Encounter HX NO MAPPING Dante Mcdaniel M.D. [address], [place] [phone] (Wo rk) Social History [...]
--- OUTSIDE RECORDS SUMMARY | 2022-02-10 14:45 | XMS_ITS | Encounter Summary ---
:1985 Author Organization [facility] Address [address] [place] [address] Care Team Providers Name Role Phone Unavailable Primary Care Provider Unavailable Encounter Details Date Type Department Care Team Description 03/29/2010 Hospital Encounter HX [facility] Chicho Morse M.D. [address] [address] (Wo rk) Social History Tobacco Use Types Packs/Day Years Used Date Smoking Tobacco: Never Assessed Sex Assigned at Date Recorded Male 10/17/2017 10:58 AM CDT documented as of this encounter Progress Notes Chicho Morse M.D. - 03/29/2010 12:00 AM CST [id number] HISTORY OF PRESENT ILLNESS This is a 24-year-old male I was asked to see in consultation for preoperative physical for upcoming sinus surgery planned by Dr. Mc Jensen, II on April 02, 2010. He has had previous sinus surgery, as below, about 5-7 years ago. He is now having persistent right-sided nasal congestion and sensitivities to smells. Recent sinus CT showed thickening of the sinuses and mucus retention cyst or polyp in the right maxillary sinus. He otherwise has no active complaints or active illnesses. No other complaints. CURRENT MEDICATIONS Klonopin 0.5 mg by mouth twice daily as needed for anxiety. Naprosyn 500 mg by mouth twice daily as needed for pain. He just stopped that last week. Propranolol 40 mg two by mouth twice daily. Multivitamin by mouth daily. Zoloft 50 mg by mouth daily. Imitrex 50 mg as needed for migraine headache. ALLERGIES No known drug allergies. SYSTEMS REVIEW Otherwise negative. No recent illnesses. No chest pain or dyspnea. He does have irritable bowel syndrome, but no active complaints with that at this point. No personal bleeding problems. No personal anesthetic reactions. Systems review is otherwise negative. PAST MEDICAL / SURGICAL HISTORY 1) Depression and anxiety with a [...] the brain and angiogram, which were normal. SOCIAL HISTORY He is single and has never been . He is originally from [place]. He has lived in [place] recently. No children. He stopped smoking a week ago, but he still chews daily. This was discouraged. No drugs or alcohol for the last 3 years. 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 FAMILY HISTORY Multiple family members with anxiety and depression. This is mainly on the maternal side. Father with anxiety and apparently a nervous twitch with pending neurologic evaluation. No diabetes mellitus. No cancers. No heart disease. No bleeding problems or anesthetic reactions in the family. VITALS SIGNS HEIGHT: 162 cm WEIGHT: 73 kg TEMP: 36.1 degreesC PULSE: 60 RESP RATE: 14 BLOOD PRESSURE: 112/64 PHYSICAL EXAM GENERAL: Well-appearing 24-year-old male in no acute distress. HEENT: TMs are clear bilaterally. Sclerae are clear. Mouth with moist mucus membranes. Pharynx is clear. No erythema or exudate. Neck is supple. No lymphadenopathy. LUNGS: Clear to auscultation bilaterally. No crackles. No wheezes. HEART: Regular rate and rhythm. No murmurs, gallops, or rubs. ABDOMEN: Soft and nontender. Nondistended. Bowel sounds are normoactive. No masses. No hepatosplenomegaly. GENITALIA: Deferred. RECTUM: Deferred. SKIN: No edema. No significant rash or lesion. NEURO: Alert and oriented x3. Cranial nerves II-XII intact. DTRs equal at patella bilaterally. Nonfocal neuro exam. IMPRESSION / REPORT / PLAN DIAGNOSTICS: Hemoglobin from November 27, 2009, was 15.3, so this was not repeated. 1) Preoperative physical for upcoming sinus surgery on April 02, 2010; no problems identified. 2) Depression and anxiety; stable on medications. Following with Barrett Nieves P.A.-C 3) Migraine headaches doing well on propranolol for preventative and Imitrex p.r.n. 4) History of polysubstance abuse without current problems. PLAN: The patient is a satisfactory candidate for surgery as planned. He will be n.p.o. after midnight the night before surgery. He will take his medications up until the day before surgery and resume them after. He is holding off on the naproxen until after surgery as well. Delvin Santos cc: Mc Jensen II, M.D. Electronically Signed By:CHICHO MORSE MD On 03/30/2010 11:07 AM Source: [facility] MHSDOLBEYNONRADSYS Document Id: [id number] MATERIAL INSPECTOR documented in this encounter Miscellaneous Notes Miscellaneous - Chicho Morse M.D. - 03/29/2010 11:15 AM CST Ambulatory Patient Summary [facility] [address] [place] [address] Visit Information Name: ALEJANDRA ADHIKARI Current Date: 03/29/2010 11:15:34 Primary Care Provider: BARRETT NIEVES Your Medications Here is a list of your medications. It is important to take your medications as directed. Use a pillbox or chart to help remind you to take your medications. Please let your doctor or nurse know if you have problems taking your medications. Medication/Strength Dose Route Frequency Indications/Special Instructions/Comments sertraline (Zoloft 50 mg oral tablet) 1 tab(s) Oral once a day propranolol (propranolol 40 mg oral tablet) 80 mg Oral two times a day increase to 80 mg AM and 120 mg PM after 2 weeks clonazepam (Klonopin 0.5 mg oral tablet) 0.5 mg Oral two times a day as needed for Anxiety anxiety sumatriptan (Imitrex 50 mg oral tablet) 1 tab(s) Oral once as needed for Migraine headache repeat after one hour if needed naproxen (Naprosyn 500 mg oral tablet) 500 mg Oral two times a day with meals Your Allergies & Intolerances Substance Reaction Symptoms [...] Lipid Panel every 5 years Age 20-75 03/29/2010 Checks blood for good (HDL) and bad (LDL) cholesterol. Know your numbers, they are one indicator of your risk for heart attack and stroke. Vaccine: Tetanus every 10 years 03/29/2010 Immunization to help prevent you from getting the seriousdisease Tetanus (Lockjaw). Your Upcoming Appointments Date Time Location Reason Provider 03/29/2010 11:30 [facility] ENT rck prior to surgery per Mc Suárez MD 04/05/2010 14:15 [facility] E[facility] 3 DAY Mc Syed MD 04/07/2010 15:15 [facility] ENT 5 DAY Mc Syed MD 04/12/2010 14:30 [facility] ENT 1 WK Mc Syed MD 04/16/2010 14:00 [facility] Ophth Eye Exam. See Order Detail. 04/16/2010 14:00 [facility] Ophth hvf 04/19/2010 15:15 [facility] ENT 2 WK Mc Syed MD Your Goals/Additional instructions: Source: [facility] POWERCHART Document Id: [id number] Electronically signed by Conversion, [facility] Resource Director [id number] at 08/07/2016 9:55 AM CDT Miscellaneous - Chicho Morse M.D. - 03/29/2010 11:15 AM CST Ambulatory Depart Summary [address] [address] Visit Information Name: ALEJANDRA ADHIKARI Current Date: 03/29/2010 11:15:33 Primary Care Provider: BARRETT NIEVES ALEJANDRA has been given the following list of medications: Your Medications It is important to take your medications as directed. Use a pill box or chart to help remind you to take your medications. Please let your doctor or nurse know if you have problems taking your medications. Medication/Strength Dose Route Frequency Indications/Special Instructions/Comments sertraline (Zoloft 50 mg oral tablet) 1 tab(s) Oral once a day propranolol (propranolol 40 mg oral tablet) 80 mg Oral two times a day increase to 80 mg AM and 120 mg PM after 2 weeks clonazepam (Klonopin 0.5 mg oral tablet) 0.5 mg Oral two times a day as needed for Anxiety anxiety sumatriptan (Imitrex 50 mg oral tablet) 1 tab(s) Oral once as needed for Migraine headache repeat after one hour if needed naproxen (Naprosyn 500 mg oral tablet) 500 mg Oral two times a day with meals Additional Information: Nothing to eat or drink after midnight on ; no medications on Monday. Yes - Current list of reconciled medications is provided and explained to the patient and/or family, guardian/caregiver. Source: [facility] POWERCHART Document Id: [id number] Electronically signed by Conversion, [facility] Resource Director [id number] at 08/07/2016 9:55 AM CDT Miscellaneous - Herrera, Historical Provider Ser - 03/29/2010 10:35 AM NAV[employer] MATERIAL INSPECTOR Adult Calender Tender Intake/History Adult Calender Tender Intake/History Entered On: 03/29/2010 10:40 NAVY MATERIAL INSPECTOR Performed On: 03/29/2010 10:35 NAVY MATERIAL INSPECTOR by NIQUE, CARLENE L Intake Chief Complaint: Pre-op physical for sinus surgery at [facility] with Dr Romero on 04-02-10 Temperature Oral: 36.1C(Converted to: 97.0DegF) Peripheral Pulse Rate: 60/min Respiratory Rate: 14/min Systolic Blood Pressure: 112mmHg Diastolic Blood Pressure: 64mmHg NIBP Mean: 80mmHg BP Location: Right upper extremity Heart Rhythm: Regular Oxygen Therapy: Room air Height: 162.00cm(Converted to: 5ft 4in, 63.78in) Actual Weight: 73.000kg(Converted to: 160lb 15oz) Weight Source: Standing scale Dosing Weight Clinic: 73.00kg Clinic BSA: 1.81 Body Mass Index: 28kg/m2 CARLENE GREENE 03/29/2010 10:35 NAVY MATERIAL INSPECTOR Subjective Pain Symptoms: No Mouth and Throat Symptoms: White patches CARLENE GREENE 03/29/2010 10:35 NAVY MATERIAL INSPECTOR Dependent Habits Tobacco Use/Currently Using: Yes Tobacco Use/Advised to Quit: Yes Exposure to Tobacco Smoke: Other: chews EKNNY GREENEREYNALDO Anna 03/29/2010 10:35 NAVY MATERIAL INSPECTOR Tobacco Use Grid Type: Cigarettes Comments (Comment: chews [CARLENE GREENE Wilfrido 03/29/2010 10:35 NAVY MATERIAL INSPECTOR] ) CARLENE GREENE Wilfrido 03/29/2010 10:35 NAVY MATERIAL INSPECTOR Caffeine Use Grid Caffeine Use: None CARLENE GREENE Wilfrido 03/29/2010 10:35 NAVY MATERIAL INSPECTOR Allergies Allergies (Active) NKA Estimated Onset Date: Unspecified ; Created By: IMTIAZ CLARK; Reaction Status: Active ; Category: Drug ; Substance: NKA ; Type: Allergy ; Updated By: IMTIAZ CLARK; Reviewed Date: 03/29/2010 10:31 NAVY MATERIAL INSPECTOR Source: [facility] POWERCHART Document Id: [id number] NAVY MATERIAL INSPECTOR!31 documented in this encounter Plan of Treatment Not on filedocumented as of this encounter Visit Diagnoses Not on filedocumented in this encounter Additional Health Concerns Assessment Noted Time PHQ-9 Depression Total Score: 8 11/02/2009 12:03 PM CD T documented as of this encounter
--- OUTSIDE RECORDS SUMMARY | 2022-02-10 14:45 | XMS_ITS | Encounter Summary ---
:1985 Author Organization [facility] Address [address] [place] [address] Care Team Providers Name Role Phone Unavailable Primary Care Provider Unavailable Encounter Details Date Type Department Care Team Description 06/30/2010 Hospital Encounter HX [facility] ENT Provider, Historic al Social History Tobacco Use Types Packs/Day Years Used Date Smoking Tobacco: Never Assessed Sex Assigned at Date Recorded Male 10/17/2017 10:58 AM CDT documented as of this encounter Progress Notes Conversion, Historical Provider Ser - 06/30/2010 12:00 AM CDT [id number] HISTORY OF PRESENT ILLNESS The patient has had resolution of his symptoms. He states that he is doing great. The patient states that he still occasionally gets migraines, but he no longer has problems with sinusitis or nasal obstruction. IMPRESSION / REPORT / PLAN Nasal endoscopy was performed and this shows excellent healing of the nose and sinuses bilaterally. His paranasal sinuses have healed very well. 1) Doing well status post endoscopic sinus surgery and nasal surgery. PLAN: I have asked the patient to return to see me as needed, but I suggested that he may want to return to see me sometime within the next 4 to 5 months. Santy Mccauley II, M.D. nac Electronically Signed By: SANTY MCCAULEY II, MD On: 07/13/2010 05:30 Source: [facility] MHSDOLBEYNONRADSYS Document Id: [id number] documented in this encounter Miscellaneous Notes Miscellaneous - Harsha Renteria L.PGermanNGerman - 06/30/2010 8:37 AM CDT Adult Quality Assurance Auditor Intake/History Adult Quality Assurance Auditor Intake/History Entered On: 06/30/2010 8:40 CDT Performed On: 06/30/2010 8:37 CDT by HARSHA RENTERIA Intake Chief Complaint: Postop sinus surgery 04/02/2010 Temperature Core: 36.8C(Converted to: 98.2DegF) Peripheral Pulse Rate: 74/min Systolic Blood Pressure: 110mmHg Diastolic Blood Pressure: 70mmHg NIBP Mean: 83mmHg HARSHA RENTERIA 06/30/2010 8:37 CDT Subjective Pain Symptoms: No HARSHA RENTERIA 06/30/2010 8:37 CDT Dependent Habits Tobacco Use/Currently Using: Yes Exposure to Tobacco Smoke: Patient smokes HARSHA RENTERIA 06/30/2010 8:37 CDT Tobacco Use Grid Type: Cigarettes Chewing tobacco Cigarette Use Packs/Day: 1.0 HARSHA RENTERIA 06/30/2010 8:37 CDT HARSHA RENTERIA 06/30/2010 8:37 CDT Caffeine Use Grid Caffeine Use: None HARSHA RENTERIA 06/30/2010 8:37 CDT Allergy Allergies (Active) NKA Estimated Onset Date: Unspecified ; Created By: IMTIAZ CLARK; Reaction Status: Active ; Category: Drug ; Substance: NKA ; Type: Allergy ; Updated By: IMTIAZ LCARK; Reviewed Date: 05/24/2010 16:51 CDT Source: [facility] LedburyCHART Document Id: [id number] CDT!22 documented in this encounter Plan of Treatment Not on filedocumented as of this encounter Visit Diagnoses Not on filedocumented in this encounter Additional Health Concerns Assessment Noted Time PHQ-9 Depression Total Score: 8 11/02/2009 12:03 PM CD T documented as of this encounter
--- OUTSIDE RECORDS SUMMARY | 2022-02-10 14:45 | XMS_ITS | Encounter Summary ---
:1985 Author Organization [facility] Address [address] [place] [address] Care Team Providers Name Role Phone Unavailable Primary Care Provider Unavailable Encounter Details Date Type Department Care Team Description 04/28/2010 Hospital Encounter HX [facility] Provider, Historic al Social History Tobacco Use Types Packs/Day Years Used Date Smoking Tobacco: Never Assessed Sex Assigned at Date Recorded Male 10/17/2017 10:58 AM CDT documented as of this encounter Progress Notes Conversion, Historical Provider Ser - 04/28/2010 12:00 AM CST [id number] CHIEF COMPLAINT / REASON FOR VISIT Headaches. HISTORY OF PRESENT ILLNESS The patient continues to have intermittent problems with headaches. He has not had any fever. He has also had no problems with confusion or any other neurologic symptoms. His nasal obstruction is improving. His nasal airway is significant improved now after surgery over what it was preoperatively. All of his other nasal symptoms are improving as well. PHYSICAL EXAM NOSE: Nasal endoscopy was performed. This shows the expected postoperative changes. The patient is having excellent healing. No discharge was seen. No significant crusting was seen. IMPRESSION / REPORT / PLAN 1) Doing well status post endoscopic sinus surgery and nasal surgery. 2) Intermittent headaches, which I think probably are still within the expected amount of cephalgia postoperatively. PLAN: I have asked the patient to return to see me sometime in the next few weeks. If his headaches are not improved by the time he returns, I will probably start the patient on an antibiotic at that time and then have him undergo a CT scan of his sinuses after prolonged antibiotic therapy. If his headaches are increasing or he starts developing other symptoms, then I would probably have the patient undergo a CT scan of his sinuses sooner. Santy Mccauley II, M.D. nac Electronically Signed By: ASNTY MCCAULEY II, MD On: 05/18/2010 08:46 Source: [facility] MHSDOLBEYNONRADSYS Document Id: [id number] documented in this encounter Miscellaneous Notes Miscellaneous - Honey Lopez, C.N.A. - 04/28/2010 2:56 PM CST Adult Blender / Cook Intake/History Adult Blender / Cook Intake/History Entered On: 04/28/2010 14:57 FOSTER PARENT Performed On: 04/28/2010 14:56 FOSTER PARENT by HONEY MORA Intake Chief Complaint: 1 wk pstop Temperature Core: 36.6C(Converted to: 97.9DegF) HONEY MORA - 04/28/2010 14:56 FOSTER PARENT Subjective Pain Symptoms: No HONEY MORA - 04/28/2010 14:56 FOSTER PARENT Dependent Habits Tobacco Use/Currently Using: Yes Exposure to Tobacco Smoke: Patient smokes HONEY MORA - 04/28/2010 14:56 FOSTER PARENT Tobacco Use Grid Type: Cigarettes Chewing tobacco Cigarette Use Packs/Day: 0.5 HONEY MORA - 04/28/2010 14:56 FOSTER PARENT HONEY MORA - 04/28/2010 14:56 FOSTER PARENT Caffeine Use Grid Caffeine Use: None HONEY MORA - 04/28/2010 14:56 FOSTER PARENT Allergies Allergies (Active) NKA Estimated Onset Date: Unspecified ; Created By: IMTIAZ CLARK; Reaction Status: Active ; Category: Drug ; Substance: NKA ; Type: Allergy ; Updated By: IMTIAZ CLARK; Reviewed Date: 04/16/2010 13:58 FOSTER PARENT Source: [facility] POWERCHART Document Id: [id number] FOSTER PARENT!18 ER PARENT documented in this encounter Plan of Treatment Not on filedocumented as of this encounter Visit Diagnoses Not on filedocumented in this encounter Additional Health Concerns Assessment Noted Time PHQ-9 Depression Total Score: 8 11/02/2009 12:03 PM CD T documented as of this encounter
--- OUTSIDE RECORDS SUMMARY | 2022-02-10 14:45 | XMS_ITS | Encounter Summary ---
:1985 Author Organization [facility] Address [address] [place] [address] Care Team Providers Name Role Phone Unavailable Primary Care Provider Unavailable Encounter Details Date Type Department Care Team Description 06/08/2010 Hospital Encounter HX NO MAPPING Alexys Church M.D. [address] [place] [address] (Wo rk) Social History Tobacco Use Types [...]
--- OUTSIDE RECORDS SUMMARY | 2022-02-10 14:45 | XMS_ITS | Encounter Summary ---
:1985 Author Organization [facility] Address [address] [place] [address] Care Team Providers Name Role Phone Unavailable Primary Care Provider Unavailable Encounter Details Date Type Department Care Team Description 04/18/2010 Hospital Encounter HX NO MAPPING Dalton Zhang M.B.B.S. [address], [place] [address] (Wo rk) Social History [...]
--- OUTSIDE RECORDS SUMMARY | 2022-02-10 14:45 | XMS_ITS | Encounter Summary ---
:1985 Author Organization [facility] Address [address] [place] [address] Care Team Providers Name Role Phone Unavailable Primary Care Provider Unavailable Encounter Details Date Type Department Care Team Description 04/03/2010 Hospital Encounter HX NO MAPPING Alexys Church M.D. [address] [place] [address] (Wo rk) Social History Tobacco Use Types [...]
--- OUTSIDE RECORDS SUMMARY | 2022-02-10 14:45 | XMS_ITS | Encounter Summary ---
:1985 Author Organization [facility] Address [address] [place] [address] Care Team Providers Name Role Phone Unavailable Primary Care Provider Unavailable Encounter Details Date Type Department Care Team Description 03/10/2010 Hospital Encounter HX [facility] ENT Provider, Historic al Social History Tobacco Use Types Packs/Day Years Used Date Smoking Tobacco: Never Assessed Sex Assigned at Date Recorded Male 10/17/2017 10:58 AM CDT documented as of this encounter Progress Notes Conversion, Historical Provider Ser - 03/10/2010 12:00 AM CST [id number] CHIEF COMPLAINT / REASON FOR VISIT Chronic sinusitis. HISTORY OF PRESENT ILLNESS The patient has had recurrent problems with paranasal and frontal cephalgia. He states that he is having this everyday. The patient has very significant paranasal cephalgia multiple times a week. The patient also complains of having very significant bilateral nasal obstruction. He also has a diminished sense of smell. At times the patient has significant postnasal drainage. He also has intermittent problems with rhinorrhea. The patient had a MRI scan in December 2009, which showed sinusitis. Because of the patient's symptoms and his previous MRI scan, I treated the patient with a prolonged course of antibiotic therapy and then I had him undergo a CT of the sinuses. The CT scan of the sinuses is very abnormal with significant sinusitis of the frontal sinuses, the ethmoid sinuses, and each maxillary sinus. It also shows very significant bilateral turbinate hypertrophy. CURRENT MEDICATIONS Reviewed and no changes per EMR. ALLERGIES The patient has no known drug allergies. PAST MEDICAL/SURGICAL HISTORY Unchanged. REVIEW OF SYSTEMS Unchanged. VITAL SIGNS Reviewed per EMR. PHYSICAL EXAM CONSTITUTIONAL: The patient [...] are without significant gross deviation or deformity. It is obvious the patient has had previous closed nasal fracture. There is very significant deviation of the nasal septum. The nasal mucosa does not show any significant abnormalities, except for the inferior turbinate mucosa is boggy. There is very significant bilateral turbinate hypertrophy. No significant nasal discharge can be seen in either side of the nose. ORAL CAVITY: The lips and buccal mucosa are within normal limits. The tongue is within normal limits. Rich's and Stensen's ducts are within normal limits. [...] adenopathy of either side of the neck. MUSCULOSKELETAL: Examination of the muscles of the neck shows no abnormality. NEUROLOGICAL: The cranial nerves show no deficit grossly. The patient is oriented to person, place and time. IMPRESSION / REPORT / PLAN DIAGNOSTIC: I reviewed the CT scan with the patient and I showed him his coronal slices of the CT scan. We compared the coronal slides to normal anatomy. The CT scan of the sinuses shows very significant bilateral frontal mucoperiosteal thickening. This includes the frontal sinus outflow tract on each side, but especially on the left side. There is bilateral ethmoid mucoperiosteal thickening consistent with chronic sinusitis. There is also bilateral maxillary mucoperiosteal thickening consistent with chronic sinusitis. There is significant mucoperiosteal disease of the natural ostium of the maxillary sinus on each side. There is more mucoperiosteal thickening of the left maxillary sinus that there is of the right, but there is significant chronic sinusitis of the right maxillary sinus as well. There is also deviation of the nasal septum. There is also significant bilateral turbinate hypertrophy. 1) Chronic sinusitis of the frontal, ethmoid, and maxillary sinuses bilaterally. 2) Deviation of the nasal septum. 3) Significant bilateral turbinate hypertrophy. 4) Hyposmia. 5) History of closed fracture of the nasal bones. PLAN: I recommend that this patient have endoscopic sinus surgery. I discussed with him that this might involve a frontal sinus mini-trephination. I also recommend that he have a submucous resection of the turbinates. I also recommend that he have a possible septoplasty. I have discussed with him the risks and alternatives of the surgery, but the patient is going to return for another visit and I want to have a thorough discussion of all this again in detail with him. There was a lot of information and I think that the patient will need another visit to be able to understand the surgery, and I also want to give him an opportunity to ask any questions that he has, and I want to do this prior to the day of surgery. I think that this is the only way that I will be able to have a truly informed consent with this patient. When the patient has the surgery, this needs to be done using a 3-dimentional imaging system. We do not have a 3-dimentional imaging system for sinus surgery at [facility], and for this reason the patient will have his surgery at [facility] in [place]. Santy Mccauley II, M.D. sks cc: Luz Maria Hernandez P.A.-C Electronically Signed By:SANTY MCCAULEY II, MD On 03/23/2010 08:41 PM Source: [facility] MHSDOLBEYNONRADSYS Document Id: [id number] documented in this encounter Miscellaneous Notes Miscellaneous - Conversion, Historical Provider Ser - 03/10/2010 2:26 PM SURGERY SPECIALIST Adult Machine Hostler Intake/History Adult Machine Hostler Intake/History Entered On: 03/10/2010 14:27 SURGERY SPECIALIST Performed On: 03/10/2010 14:26 SURGERY SPECIALIST by JEROMY VELA Intake Chief Complaint: f/u ct scan Temperature Core: 37.0C(Converted to: 98.6DegF) Peripheral Pulse Rate: 70/min Respiratory Rate: 16/min LUÍS VELATrey Dove - 03/10/2010 14:26 SURGERY SPECIALIST Subjective Pain Symptoms: No DANEJEROMY PUTNAM 03/10/2010 14:26 SURGERY SPECIALIST Dependent Habits Tobacco Use/Currently Using: Yes Exposure to Tobacco Smoke: Lives with someone who smokes, Patient smokes DANEJEROMY PUTNAM 03/10/2010 14:26 SURGERY SPECIALIST Tobacco Use Grid Type: Cigarettes Cigarette Use Packs/Day: 1.0 DANE, JEROMY J 03/10/2010 14:26 SURGERY SPECIALIST Caffeine Use Grid Caffeine Use: None JEROMY VELA 03/10/2010 14:26 SURGERY SPECIALIST Allergies Allergies (Active) NKA Estimated Onset Date: Unspecified ; Created By: IMTIAZ CLARK; Reaction Status: Active ; Category: Drug ; Substance: NKA ; Type: Allergy ; Updated By: IMTIAZ CLARK; Reviewed Date: 03/10/2010 14:23 SURGERY SPECIALIST Source: [facility] IPNetVoiceCHART Document Id: [id number] SURGERY SPECIALIST!18 documented in this encounter Plan of Treatment Not on filedocumented as of this encounter Visit Diagnoses Not on filedocumented in this encounter Additional Health Concerns Assessment Noted Time PHQ-9 Depression Total Score: 8 11/02/2009 12:03 PM CD T documented as of this encounter
--- OUTSIDE RECORDS SUMMARY | 2022-02-10 14:45 | XMS_ITS | Encounter Summary ---
:1985 Author Organization [facility] Address [address] [place] [address] Care Team Providers Name Role Phone Unavailable Primary Care Provider Unavailable Encounter Details Date Type Department Care Team Description 04/19/2010 Hospital Encounter HX [facility] ENT Provider, Historic al Social History Tobacco Use Types Packs/Day Years Used Date Smoking Tobacco: Never Assessed Sex Assigned at Date Recorded Male 10/17/2017 10:58 AM CDT documented as of this encounter Progress Notes Conversion, Historical Provider Ser - 04/19/2010 12:00 AM CST [id number] CHIEF COMPLAINT / REASON FOR VISIT Intermittent headaches. HISTORY OF PRESENT ILLNESS The patient is doing well after his endoscopic sinus surgery and nasal surgery. The frequency and severity of his headaches is improving. The patient does not have any significant problems with nasal obstruction. PHYSICAL EXAM ENT: The nose and paranasal sinuses are healing well. Scant crusting and scant discharge were removed. All of the paranasal sinuses are clean and widely patent. IMPRESSION / REPORT / PLAN 1) Doing well status post endoscopic sinus surgery and nasal surgery. I have asked the patient to return to see me in approximately a week. I told him I would be happy to see him again any time sooner. Santy Mccauley II, M.D. pas Electronically Signed By: SANTY MCCAULEY II, MD On: 05/05/2010 08:02 Source: [facility] MHSDOLBEYNCHELERADFLAQUITO Document Id: [id number] documented in this encounter Miscellaneous Notes Miscellaneous - Herrera, Historical Provider Ser - 04/19/2010 3:50 PM SALES TEAM MANAGER Adult Wireless Construction Manager Intake/History Adult Wireless Construction Manager Intake/History Entered On: 04/19/2010 15:55 SALES TEAM MANAGER Performed On: 04/19/2010 15:50 SALES TEAM MANAGER by JEROMY VELA Intake Chief Complaint: 2 weeks post op - nasal surgery/ continues to have headaches Temperature Core: 37.9C(Converted to: 100.2DegF) Peripheral Pulse Rate: 72/min Respiratory Rate: 16/min Systolic Blood Pressure: 112mmHg Diastolic Blood Pressure: 70mmHg NIBP Mean: 84mmHg JEROMY VELA - 04/19/2010 15:50 SALES TEAM MANAGER Subjective Pain Symptoms: Yes JEROMY VELA - 04/19/2010 15:50 SALES TEAM MANAGER Pain Pain Assessment Grid Pain 1 Location: Head JEROMY VELA - 04/19/2010 15:50 SALES TEAM MANAGER Dependent Habits Tobacco Use/Currently Using: Yes Exposure to Tobacco Smoke: Patient smokes JEROMY VELA - 04/19/2010 15:50 SALES TEAM MANAGER Tobacco Use Grid Type: Cigarettes Chewing tobacco Cigarette Use Packs/Day: 0.5 JEROMY VELA 04/19/2010 15:50 SALES TEAM MANAGER JEROMY VELA - 04/19/2010 15:50 SALES TEAM MANAGER Caffeine Use Grid Caffeine Use: None JEROMY VELA 04/19/2010 15:50 SALES TEAM MANAGER Allergies Allergies (Active) NKA Estimated Onset Date: Unspecified ; Created By: IMTIAZ CLARK; Reaction Status: Active ; Category: Drug ; Substance: NKA ; Type: Allergy ; Updated By: IMTIAZ CLARK; Reviewed Date: 04/16/2010 13:58 SALES TEAM MANAGER Source: [facility] POWERCHART Document Id: [id number] SALES TEAM MANAGER!27 documented in this encounter Plan of Treatment Not on filedocumented as of this encounter Visit Diagnoses Not on filedocumented in this encounter Additional Health Concerns Assessment Noted Time PHQ-9 Depression Total Score: 8 11/02/2009 12:03 PM CD T documented as of this encounter
--- OUTSIDE RECORDS SUMMARY | 2022-02-10 14:45 | XMS_ITS | Encounter Summary ---
:1985 Author Organization [facility] Address [address] [place] [address] Care Team Providers Name Role Phone Unavailable Primary Care Provider Unavailable Encounter Details Date Type Department Care Team Description 04/18/2010 Hospital Encounter HX NO MAPPING Adriel Jaimes M.D. [address] [place] [address] [phone] (Wo rk) Social History Tobacco [...]
--- OUTSIDE RECORDS SUMMARY | 2022-02-10 14:45 | XMS_ITS | Encounter Summary ---
:1985 Author Organization [facility] Address [address] [place] [address] Care Team Providers Name Role Phone Unavailable Primary Care Provider Unavailable Encounter Details Date Type Department Care Team Description 05/12/2010 Hospital Encounter HX [facility] ENT Provider, Historic al Social History Tobacco Use Types Packs/Day Years Used Date Smoking Tobacco: Never Assessed Sex Assigned at Date Recorded Male 10/17/2017 10:58 AM CDT documented as of this encounter Progress Notes Conversion, Historical Provider Ser - 05/12/2010 12:00 AM CST [id number] CHIEF COMPLAINT / REASON FOR VISIT Intermittent nasal obstruction. HISTORY OF PRESENT ILLNESS The patient continues to have intermittent nasal obstruction. This tends to be mostly a problem when he takes a very deep breath in through one nostril. The patient is very pleased that he has had a full resolution of his headaches. His headaches resolved 3 weeks ago and he is very happy that now all of his symptoms have improved postoperatively over what they were preoperatively. PHYSICAL EXAM NOSE: I showed the patient that he has a collapse of the lateral nose due to weak cartilages. He has weak lower lateral cartilages and when he takes a large breath in through one nostril he will have a collapse of that side of the nose. The patient has not had any nasal crusting on examination. He is having excellent healing. IMPRESSION / REPORT / PLAN 1) Doing very well status post endoscopic sinus surgery and nasal surgery. 2) Weak lower lateral cartilages. DISCUSSION AND PLAN: I discussed with the patient that now that he has improvement in his nasal obstruction, the area of resistance to flow of his nose is the anterior choana and this is why he develops a collapse on the lower lateral nose when he obstructs one nasal cavity and takes in a deep breath. I discussed with him that he could use Breathe Right strips to help during these times. He should use Breathe Right strips when he is exercising. I discussed with him that at some point in the future he could see a surgeon that does cartilage implants for the lower nose. I discussed with him that I do not do this type of surgery, but that we would try to help him find someone who does. At this time, the patient is not interested in having any other surgery. I have asked him to return to see me in 1 month, and I told him I would be happy to see him back any time sooner. Santy Mccauley II, M.D. daa Electronically Signed By: SANTY MCCAULEY II, MD On: 06/02/2010 08:38 Source: [facility] MHSDOLBEYNONRADSYS Document Id: [id number] documented in this encounter Miscellaneous Notes Miscellaneous - Honey Lopez, C.N.A. - 05/12/2010 4:10 PM CST Adult Steward/Stewardess Economy Class Intake/History Adult Steward/Stewardess Economy Class Intake/History Entered On: 05/12/2010 16:11 CLAY PRODUCTS MACHINE OPERATOR Performed On: 05/12/2010 16:10 CLAY PRODUCTS MACHINE OPERATOR by HONEY MORA Intake Systolic Blood Pressure: 108mmHg Diastolic Blood Pressure: 70mmHg NIBP Mean: 83mmHg BP Location: Right upper extremity HONEY MORA - 05/12/2010 16:13 CLAY PRODUCTS MACHINE OPERATOR Chief Complaint: follow up - feeling good Peripheral Pulse Rate: 80/min Respiratory Rate: 18/min HONEY MORA - 05/12/2010 16:10 CLAY PRODUCTS MACHINE OPERATOR Subjective Pain Symptoms: No HONEY MORA - 05/12/2010 16:10 CLAY PRODUCTS MACHINE OPERATOR Dependent Habits Tobacco Use/Currently Using: Yes Exposure to Tobacco Smoke: Patient smokes HONEY MORA 05/12/2010 16:10 CLAY PRODUCTS MACHINE OPERATOR Tobacco Use Grid Type: Cigarettes Chewing tobacco Cigarette Use Packs/Day: 0.5 HONEY MORA - 05/12/2010 16:10 CLAY PRODUCTS MACHINE OPERATOR HONEY MORA - 05/12/2010 16:10 CLAY PRODUCTS MACHINE OPERATOR Caffeine Use Grid Caffeine Use: None HONEY MORA 05/12/2010 16:10 CLAY PRODUCTS MACHINE OPERATOR Allergies Allergies (Active) NKA Estimated Onset Date: Unspecified ; Created By: IMTIAZ CLARK; Reaction Status: Active ; Category: Drug ; Substance: NKA ; Type: Allergy ; Updated By: IMTIAZ CLARK; Reviewed Date: 04/16/2010 13:58 CLAY PRODUCTS MACHINE OPERATOR Source: [facility] [employer] Document Id: [id number] CLAY PRODUCTS MACHINE OPERATOR!6 PRODUCTS MACHINE OPERATOR documented in this encounter Plan of Treatment Not on filedocumented as of this encounter Visit Diagnoses Not on filedocumented in this encounter Additional Health Concerns Assessment Noted Time PHQ-9 Depression Total Score: 8 11/02/2009 12:03 PM CD T documented as of this encounter
--- OUTSIDE RECORDS SUMMARY | 2022-02-10 14:45 | XMS_ITS | Encounter Summary ---
:1985 Author Organization [facility] Address [address] [place] [address] Care Team Providers Name Role Phone Unavailable Primary Care Provider Unavailable Encounter Details Date Type Department Care Team Description 04/05/2010 Hospital Encounter HX [facility] ENT Provider, Historic al Social History Tobacco Use Types Packs/Day Years Used Date Smoking Tobacco: Never Assessed Sex Assigned at Date Recorded Male 10/17/2017 10:58 AM CDT documented as of this encounter Progress Notes Conversion, Historical Provider Ser - 04/05/2010 12:00 AM CST [id number] CHIEF COMPLAINT / REASON FOR VISIT Nasal obstruction. HISTORY OF PRESENT ILLNESS The patient is status post endoscopic sinus surgery and nasal surgery. PHYSICAL EXAM ENT: The nasal packing was removed from each side. The patient tolerated this well. IMPRESSION / REPORT / PLAN 1) Doing well, status post nasal surgery and endoscopic sinus surgery. PLAN: The patient will return to see me within the next few days. I have given him instructions. Santy Mccauley II, M.D. nac Electronically Signed By: SANTY MCCAULEY II, MD On: 04/20/2010 07:09 Source: [facility] MHSDOLBEYNONRADSYS Document Id: [id number] documented in this encounter Miscellaneous Notes Miscellaneous - Conversion, Historical Provider Ser - 04/05/2010 2:05 PM FUNERAL HOME LOCATION MANAGER Adult Transporter Radiology Intake/History Adult Transporter Radiology Intake/History Entered On: 04/05/2010 14:06 FUNERAL HOME LOCATION MANAGER Performed On: 04/05/2010 14:05 FUNERAL HOME LOCATION MANAGER by JEROMY VELA Intake Chief Complaint: 3 days post op visit Peripheral Pulse Rate: 72/min Respiratory Rate: 18/min Systolic Blood Pressure: 120mmHg Diastolic Blood Pressure: 82mmHg NIBP Mean: 95mmHg JEROMY VELA - 04/05/2010 14:05 FUNERAL HOME LOCATION MANAGER Subjective Pain Symptoms: Yes JEROMY VELA - 04/05/2010 14:05 FUNERAL HOME LOCATION MANAGER Pain Pain Assessment Grid Pain 1 Location: Throat JEROMY VELA - 04/05/2010 14:05 FUNERAL HOME LOCATION MANAGER Dependent Habits Tobacco Use/Currently Using: No Exposure to Tobacco Smoke: Other: chews JEROMY VELA - 04/05/2010 14:05 FUNERAL HOME LOCATION MANAGER Tobacco Use Grid Type: Cigarettes JEROMY VELA - 04/05/2010 14:05 FUNERAL HOME LOCATION MANAGER Caffeine Use Grid Caffeine Use: None JEROMY VELA 04/05/2010 14:05 FUNERAL HOME LOCATION MANAGER Allergies Allergies (Active) NKA Estimated Onset Date: Unspecified ; Created By: IMTIAZ CLARK; Reaction Status: Active ; Category: Drug ; Substance: NKA ; Type: Allergy ; Updated By: IMTIAZ CLARK; Reviewed Date: 03/29/2010 11:36 FUNERAL HOME LOCATION MANAGER Source: [facility] POWERCHART Document Id: [id number] FUNERAL HOME LOCATION MANAGER!23 documented in this encounter Plan of Treatment Not on filedocumented as of this encounter Visit Diagnoses Not on filedocumented in this encounter Additional Health Concerns Assessment Noted Time PHQ-9 Depression Total Score: 8 11/02/2009 12:03 PM CD T documented as of this encounter
--- OUTSIDE RECORDS SUMMARY | 2022-02-10 14:45 | XMS_ITS | Encounter Summary ---
:1985 Author Organization [facility] Address [address] [place] [address] Care Team Providers Name Role Phone Unavailable Primary Care Provider Unavailable Encounter Details Date Type Department Care Team Description 06/30/2010 Hospital Encounter [facility]X [facility] Smooth Power M.D. [address] [place] [address] (Wo rk) Social History Tobacco Use Types Packs/Day Years Used Date Smoking Tobacco: Never Assessed Sex Assigned at Date Recorded Male 10/17/2017 10:58 AM CDT documented as of this encounter Progress Notes Smooth Power M.D. - 06/30/2010 12:00 AM CDT [id number] CHIEF COMPLAINT / REASON FOR VISIT This is a 24-year-old gentleman who comes in today with concerns about some blood in his stool. HISTORY OF PRESENT ILLNESS Patient noted the blood in his stool over the last 2 months. He had about 4 to 5 episodes. It is usually only when wiping and is worse when he has been constipated. He states that he feels a slight bulge in the area especially when the pain is exacerbated. He rates the pain at approximately 4 to 5 out of 10. Describes it as a sharp pain with the bowel movements. The pain is also worse whenever he sits on hard surfaces. He has been trying to increase the fiber in his diet, but has not had any relief. He denies any other abdominal pain, only occasional diarrhea and occasional constipation, which exacerbates the pain. CURRENT MEDICATIONS Reviewed and reconciled with the EMR ALLERGIES None. SYSTEMS REVIEW He denies any headaches or vision changes. No hearing changes. No chest pain. No shortness of breath. No numbness, weakness or tingling. No skin rashes. PAST MEDICAL / SURGICAL HISTORY 1) Irritable bowel syndrome, which gives him the constipation. 2) He has a history of migraine headaches. 3) History of some substance abuse and tobacco abuse. VITAL SIGNS WEIGHT: 69.1 kg TEMP: 36.7 degreesC RESP RATE: 22/min PULSE: 66 BLOOD PRESSURE: 124/70 PHYSICAL EXAM GENERAL: He is alert, oriented x3, appears in no acute distress. HEENT: Pupils are equally round and reactive to light and accommodation. Extraocular movements are intact. Oropharynx is free from any erythema or exudate. HEART: Regular rate and rhythm without any murmurs, rubs or gallops. LUNGS: Clear to auscultation bilaterally. RECTUM: Good tone. Anoscope is placed and anoscopy performed. Do show healthy pink mucosa. Also, does show a small anal fissure to be approximately in the 7 o'clock position. Mildly tender to palpation. IMPRESSION/REPORT/PLAN 1) Anal fissure. At this point, we will go ahead as the fissure is relatively related to the constipation, we will have the patient increase the amount of fiber in his diet including fiber supplement such as Metamucil or FiberCon. If he continues to have difficulties with constipation, may need to consider other measures. If the pain does not improve in the next week, may consider topical creams for help with the fissure, but we will hold of on those at this time. Smooth Power M.D. Electronically Signed By: SMOOTH POWER MD On: 07/16/2010 09:27 Source: [facility] MHSDOLBEYNONRADSYS Document Id: [id number] documented in this encounter Miscellaneous Notes Miscellaneous - Smooth Power M.D. - 07/01/2010 11:20 AM CDT Ambulatory Patient Summary [address] [address] Visit Information Name: ALEJANDRA ADHIKARI Current Date: 07/01/2010 11:20:00 Primary Care Provider: BARRETT NIEVES Your Medications Here is a list of your medications. It is important to take your medications as directed. Use a pillbox or chart to help remind you to take your medications. Please let your doctor or nurse know if you have problems taking your medications. Medication/Strength Dose Route Frequency Indications/Special Instructions/Comments buprenorphine-naloxone (Suboxone 2 mg-0.5 mg sublingual tablet) 1 tab(s) Sublingual two times a day multivitamin (multivitamin) 1 tab Oral once a day sertraline (Zoloft 50 mg oral tablet) 1 tab(s) Oral once a day clonazepam (Klonopin 0.5 mg oral tablet) 0.5 [...] Lipid Panel every 5 years Age 20-75 07/01/2010 Checks blood for good (HDL) and bad (LDL) cholesterol. Know your numbers, they are one indicator of your risk for heart attack and stroke. Vaccine: Tetanus every 10 years 07/01/2010 Immunization to help prevent you from getting the seriousdisease Tetanus (Lockjaw). Your Upcoming Appointments Date Time Location Reason Provider No Appointments found Your Goals/Additional instructions: Source: [facility] POWERCHART Document Id: [id number] Miscellaneous - Vicky Pires - 06/30/2010 9:26 AM CDT Adult Jetting Machine Operator Intake/History Adult Jetting Machine Operator Intake/History Entered On: 06/30/2010 9:31 CDT Performed On: 06/30/2010 9:26 CDT by VICKY PIRES Intake Chief Complaint: wants to stop smoking need rx and check for hemorrhoids and some blood Temperature Oral: 36.7C(Converted to: 98.1DegF) Peripheral Pulse Rate: 66/min Respiratory Rate: 22/min (HI) Systolic Blood Pressure: 124mmHg Diastolic Blood Pressure: 70mmHg NIBP Mean: 88mmHg BP Location: Right upper extremity Actual Weight: 69.100kg(Converted to: 152lb 5oz) Dosing Weight Clinic: 69.10kg VICKY PIRES - 06/30/2010 9:26 CDT Subjective Pain Symptoms: Yes VICKY PIRES - 06/30/2010 9:26 CDT Pain Pain Assessment Grid Pain 1 Location: Rectal VICKY PIRES - 06/30/2010 9:26 CDT Dependent Habits Tobacco Use/Currently Using: Yes Exposure to Tobacco Smoke: Patient smokes VICKY PIRES - 06/30/2010 9:26 CDT Tobacco Use Grid Type: Cigarettes Chewing tobacco Cigarette Use Packs/Day: 1.0 VICKY PIRES - 06/30/2010 9:26 CDT VICKY PIRES 06/30/2010 9:26 CDT Caffeine Use Grid Caffeine Use: None VICKY PIRES - 06/30/2010 9:26 CDT Allergy Allergies (Active) NKA Estimated Onset Date: Unspecified ; Created By: IMTIAZ CLARK; Reaction Status: Active ; Category: Drug ; Substance: NKA ; Type: Allergy ; Updated By: IMTIAZ CLARK; Reviewed Date: 06/30/2010 9:24 CDT Source: [facility] POWERCHART Document Id: [id number] CDT!30 documented in this encounter Plan of Treatment Not on filedocumented as of this encounter Visit Diagnoses Not on filedocumented in this encounter Additional Health Concerns Assessment Noted Time PHQ-9 Depression Total Score: 8 11/02/2009 12:03 PM CD T documented as of this encounter
--- OUTSIDE RECORDS SUMMARY | 2022-02-10 14:45 | XMS_ITS | Encounter Summary ---
:1985 Author Organization [facility] Address [address] [place] [address] Care Team Providers Name Role Phone Unavailable Primary Care Provider Unavailable Encounter Details Date Type Department Care Team Description 01/13/2010 Hospital Encounter HX [facility] ENT Provider, Historic al Social History Tobacco Use Types Packs/Day Years Used Date Smoking Tobacco: Never Assessed Sex Assigned at Date Recorded Male 10/17/2017 10:58 AM CDT documented as of this encounter Consult Notes Conversion, Historical Provider Ser - 01/13/2010 12:00 AM CST [id number] CHIEF COMPLAINT / REASON FOR VISIT REQUESTING PHYSICIAN: Shahana Reynoso REASON FOR CONSULTATION: Chronic sinusitis. Thank you very much for sending this patient. HISTORY OF PRESENT ILLNESS The patient has had recurrent problems with paranasal and frontal cephalgia. He has paranasal pressure almost every day and he has pressure that goes on into being significant paranasal cephalgia multiple times a week. The patient also complains of very significant bilateral nasal obstruction. He also has a diminished sense of smell. At times the patient has postnasal drainage. At times he has rhinorrhea, but his most significant symptom associated with probable sinusitis is the paranasal and frontal cephalgia. The patient also has frequent problems with sneezing. Sometimes the patient has postnasal drainage where he will have a frequent need to clear his throat. The patient also at times will have discomfort with swallowing. This tends to be also at times when he has been clearing his throat frequently. The patient has had a history of having a closed nasal fracture and since that time he has had very significant nasal obstruction. The patient had an MRI scan several weeks ago and this was abnormal and showed a probable mucous retention cyst in the maxillary sinus. The patient has more significant nasal obstruction on the right side than he does on the left. CURRENT MEDICATIONS Reviewed and no changes per EMR. ALLERGIES No known drug allergies. PAST MEDICAL / SURGICAL HISTORY / FMHX / SOHX / ROS The patient completed a 3-page questionnaire that documents his past medical history, family medical history, and social history. It also documents his complete review of systems. The patient completed most of the questionnaire, but I added some additional notes to it with extensive discussion with the patient. VITAL SIGNS Reviewed and please see the EMR. PHYSICAL EXAM CONSTITUTIONAL: The patient has [...] The patient's facial strength is normal bilaterally. EARS: Examination of the external auditory canals is within normal limits bilaterally. Both tympanic membranes are clear, and pneumo-otoscopy is normal with full mobility of the tympanic membranes bilaterally. Assessment of the hearing and gross clinical speech electroplater apprentice thresholds are at least close to being normal grossly for both ears. Inspection of the auricles shows each auricle to be within normal limits bilaterally. NOSE: The nasal dorsum and tip are without significant gross deviation or deformity. It is obvious that the patient has had a previous closed nasal fracture. There is very significant deviation of the nasal septum. The nasal mucosa does not show any significant abnormalities. There is bilateral turbinate hypertrophy. No significant nasal discharge is seen. ORAL CAVITY: The lips and buccal mucosa are within normal limits. The tongue is within normal limits. Kearny's and Stensen's ducts are within normal limits. OROPHARYNX: The oropharynx shows no erythema. The tonsils are of minimal size or have been removed. The uvula is in the midline, and the soft palate is within normal limits. NASOPHARYNX: Examination of the nasopharynx shows a normal appearance of the mucosa for the portion seen. NECK: Examination of the neck shows no masses or asymmetry in the tracheal position. Examination of the thyroid shows no enlargement, and there is no tenderness of the thyroid. There is no evidence of cervical adenopathy bilaterally. RESPIRATORY: Inspection of the chest shows symmetry in expansion of the chest with respiration. CARDIOVASCULAR: Examination of the peripheral vascular system shows no JVD of the neck vessels. CHEST: Refused by the patient. GASTROINTESTINAL: Nontender abdominal exam. LYMPHATIC: Palpation of the neck shows no palpable cervical adenopathy of either side of the neck. MUSCULOSKELETAL: Examination of the muscles of the neck shows no abnormality. SKIN: There is no abnormality of the skin of the face or the neck that can be appreciated. NEUROLOGICAL: The cranial nerves show no deficit grossly. The patient is oriented to person, place and time. IMPRESSION / REPORT / PLAN 1) Possible chronic sinusitis. 2) Deviation of the nasal septum. 3) Significant bilateral turbinate hypertrophy. 4) Hyposmia. 5) History of closed fracture of the nasal bones. DISCUSSION & PLAN : I have started the patient on Augmentin and I want the patient to remain on the antibiotic for approximately 3 weeks and then have a CT scan of the sinuses. I want to reduce the bacteria count in the paranasal sinuses as much as possible and I want to see if the patient has chronic sinusitis that is not reversible with antibiotic therapy. I will send a followup note to Luz Maria Hernandez after the patient has the CT scan and returns. Santy Mccauley II, M.D. [facility] cc: Luz Maria Hernandez P.A.-C Electronically Signed By:SANTY MCCAULEY II, MD On 01/24/2010 04:57 pm Modified by:SANTY MCCAULEY II, MD On 01/24/2010 04:57 pm Source: [facility] MHSDOLBEYNONRADSYS Document Id: [id number] documented in this encounter Miscellaneous Notes Miscellaneous - Pradeep Dorantes, L.P.N. - 01/13/2010 2:26 PM CST Radiology Scheduling Questionnaire Radiology Scheduling Questionnaire Entered On: 01/13/2010 14:27 IT SENIOR SOFTWARE ENGINEER JAVA Performed On: 01/13/2010 14:26 IT SENIOR SOFTWARE ENGINEER JAVA by PRADEEP DORANTES Radiology Scheduling Questionnaire Rad/Relevan Medications Grid Amiodarone: No Avandamet: No Glucophage: No Glucovance: No Metaglip: No Metformin: No Coumadin (warfarin): No Plavix (clopidogrel): No PRADEEP DORANTES - 01/13/2010 14:26 IT SENIOR SOFTWARE ENGINEER JAVA Rad/Iodinated Contrast Risk Grid Asthma: No CHF: No Chronic Renal Failure: No Diabetes: No Dialysis: No Dyspnea: No Emphysema/COPD: No Gout: No Hay Fever: No Iodine Allergy: No Multiple Myeloma: No One Kidney: No Previous CO: No PRADEEP DORANTES - 01/13/2010 14:26 IT SENIOR SOFTWARE ENGINEER JAVA Previous Films: No PRADEEP DORANTES - 01/13/2010 14:26 IT SENIOR SOFTWARE ENGINEER JAVA Source: [facility] [employer] Document Id: [id number] IT SENIOR SOFTWARE ENGINEER JAVA!26 SENIOR SOFTWARE ENGINEER JAVA Miscellaneous - Hiram Currie L.P.N. - 01/13/2010 1:37 PM CST Adult Business Risk Analyst Intake/History Adult Business Risk Analyst Intake/History Entered On: 01/13/2010 13:42 IT SENIOR SOFTWARE ENGINEER JAVA Performed On: 01/13/2010 13:37 IT SENIOR SOFTWARE ENGINEER JAVA by HIRAM CURRIE Intake Chief Complaint: Sinus cyst found on MRI, difficulty breathing through nose. Onset of Symptoms: 5-6 years Temperature Core: 36.8C(Converted to: 98.2DegF) Peripheral Pulse Rate: 56/min (LOW) Systolic Blood Pressure: 90mmHg (LOW) Diastolic Blood Pressure: 60mmHg NIBP Mean: 70mmHg BP Location: Right upper extremity Heart Rhythm: Regular HIRAM CURRIE - 01/13/2010 13:37 IT SENIOR SOFTWARE ENGINEER JAVA Subjective Pain Symptoms: No HIRAM CURRIE 01/13/2010 13:37 IT SENIOR SOFTWARE ENGINEER JAVA Dependent Habits Tobacco Use/Currently Using: Yes Tobacco Use/Advised to Quit: Yes Exposure to Tobacco Smoke: Lives with someone who smokes, Patient smokes HIRAM CURRIE - 01/13/2010 13:37 IT SENIOR SOFTWARE ENGINEER JAVA Tobacco Use Grid Type: Cigarettes Cigarette Use Packs/Day: 1.0 HIRAM CURRIE - 01/13/2010 13:37 IT SENIOR SOFTWARE ENGINEER JAVA Alcohol Use: No HIRAM CURRIE 01/13/2010 13:37 IT SENIOR SOFTWARE ENGINEER JAVA Caffeine Use Grid Caffeine Use: None HIRAM CURRIE 01/13/2010 13:37 IT SENIOR SOFTWARE ENGINEER JAVA Allergies Allergies (Active) NKA Estimated Onset Date: Unspecified ; Created By: IMTIAZ CLARK; Reaction Status: Active ; Category: Drug ; Substance: NKA ; Type: Allergy ; Updated By: IMTIAZ CLARK; Reviewed Date: 01/13/2010 13:35 IT SENIOR SOFTWARE ENGINEER JAVA Source: [facility] [employer] Document Id: [id number] IT SENIOR SOFTWARE ENGINEER JAVA!25 SENIOR SOFTWARE ENGINEER JAVA documented in this encounter Plan of Treatment Not on filedocumented as of this encounter Visit Diagnoses Not on filedocumented in this encounter Additional Health Concerns Assessment Noted Time PHQ-9 Depression Total Score: 8 11/02/2009 12:03 PM CD T documented as of this encounter
--- OUTSIDE RECORDS SUMMARY | 2022-02-10 14:45 | XMS_ITS | Encounter Summary ---
:1985 Author Organization [facility] Address [address] [place] [address] Care Team Providers Name Role Phone Unavailable Primary Care Provider Unavailable Encounter Details Date Type Department Care Team Description 03/10/2010 Hospital Encounter HX [facility] Luis Pack Jr., M.D. [address] [phone] (Wo rk) Social History Tobacco [...]
--- OUTSIDE RECORDS SUMMARY | 2022-02-10 14:45 | XMS_ITS | Encounter Summary ---
:1985 Author Organization [facility] Address [address] [place] [address] Care Team Providers Name Role Phone Unavailable Primary Care Provider Unavailable Encounter Details Date Type Department Care Team Description 05/24/2010 Hospital Encounter [facility]X [facility] Leeann Agustin, ZA, C.N.P. [address] [place] [phone] (Wo rk) Social History Tobacco Use Types Packs/Day Years Used Date Smoking Tobacco: Never Assessed Sex Assigned at Date Recorded Male 10/17/2017 10:58 AM CDT documented as of this encounter Progress Notes Leeann Agustin, ZA, R.N. - 05/24/2010 12:00 AM CDT [id number] CHIEF COMPLAINT/REASON FOR VISIT Suture removal. HISTORY OF PRESENT ILLNESS This is a 24-year-old man who states that, approximately 10 days ago, he got a laceration to his left back. Eleven sutures were placed, and he is here for removal. He denies any drainage. He has been putting Neosporin on the area. The laceration is on the side of a tattoo. There is some redness, but there is no drainage. CURRENT MEDICATIONS Reviewed and no changes per EMR. ALLERGIES Reviewed and no changes per EMR. VITAL SIGNS Reviewed and no changes per EMR. PHYSICAL EXAM GENERAL: He is alert, interactive, pleasant, small-statured man in no acute distress. HEENT: Head is normocephalic. SKIN: Warm and dry. Multiple tattoos. A laceration is on the left posterior scapular region inside a tattoo. Sutures were removed easily by Martha who assisted. She is an HOME ECONOMIST. There is absolutely no drainage or abscess or tenderness. IMPRESSION/REPORT/PLAN 1) Suture removal from laceration of back, left scapular region, healing well. No need for further treatment. Further laceration care was discussed, and followup planned if signs of infection. He agrees with plan. Leeann Agustin A.P.R.N., agb Stephanie Rodriguez Electronically Signed By: LEEANN AGUSTIN CHIEF PROCUREMENT OFFICER On: 05/28/2010 12:45 Source: [facility] MHSDOLBEYNONRADSYS Document Id: [id number] documented in this encounter Miscellaneous Notes Miscellaneous - Conversion, Historical Provider Ser - 05/24/2010 4:54 PM CDT Adult Occupational Health And Safety Officer Intake/History Adult Occupational Health And Safety Officer Intake/History Entered On: 05/24/2010 16:58 CDT Performed On: 05/24/2010 16:54 CDT by CARLENE GREENE Intake Chief Complaint: Suture removal upper back, left shoulder Temperature Oral: 36.8C(Converted to: 98.2DegF) Peripheral Pulse Rate: 88/min Respiratory Rate: 16/min Systolic Blood Pressure: 114mmHg Diastolic Blood Pressure: 58mmHg NIBP Mean: 77mmHg BP Location: Right upper extremity Heart Rhythm: Regular Oxygen Therapy: Room air Actual Weight: 69.000kg(Converted to: 152lb 2oz) Weight Source: Standing scale Dosing Weight Clinic: 69.00kg CARLENE GREENE - 05/24/2010 16:54 CDT Subjective Pain Symptoms: No CARLENE GREENE - 05/24/2010 16:54 CDT Dependent Habits Tobacco Use/Currently Using: Yes Tobacco Use/Advised to Quit: Yes Exposure to Tobacco Smoke: Patient smokes CARLENE GREENE - 05/24/2010 16:54 CDT Tobacco Use Grid Type: Cigarettes Chewing tobacco Cigarette Use Packs/Day: 1.0 CARLENE GREENE 05/24/2010 16:54 CDT CARLENE GREENE 05/24/2010 16:54 CDT Caffeine Use Grid Caffeine Use: None CARLENE GREENE Wilfrido - 05/24/2010 16:54 CDT Allergies Allergies (Active) NKA Estimated Onset Date: Unspecified ; Created By: IMTIAZ CLARK; Reaction Status: Active ; Category: Drug ; Substance: NKA ; Type: Allergy ; Updated By: IMTIAZ CLARK; Reviewed Date: 05/24/2010 16:51 CDT Source: [facility] [employer] Document Id: [id number] CDT!30 documented in this encounter Plan of Treatment Not on filedocumented as of this encounter Visit Diagnoses Not on filedocumented in this encounter Additional Health Concerns Assessment Noted Time PHQ-9 Depression Total Score: 8 11/02/2009 12:03 PM CD T documented as of this encounter
--- OUTSIDE RECORDS SUMMARY | 2022-02-10 14:45 | XMS_ITS | Encounter Summary ---
:1985 Author Organization [facility] Address [address] [place] [address] Care Team Providers Name Role Phone Unavailable Primary Care Provider Unavailable Encounter Details Date Type Department Care Team Description 04/18/2010 Hospital Encounter HX NO MAPPING Adriel Jaimes M.D. [address] [place] [phone] (Wo rk) Social History Tobacco [...]
--- OUTSIDE RECORDS SUMMARY | 2022-02-10 14:45 | XMS_ITS | Encounter Summary ---
:1985 Author Organization [facility] Address [address] [place] [address] Care Team Providers Name Role Phone Unavailable Primary Care Provider Unavailable Encounter Details Date Type Department Care Team Description 04/07/2010 Hospital Encounter HX [facility] ENT Provider, Historic al Social History Tobacco Use Types Packs/Day Years Used Date Smoking Tobacco: Never Assessed Sex Assigned at Date Recorded Male 10/17/2017 10:58 AM CDT documented as of this encounter Progress Notes Conversion, Lawson Provider Ser - 04/07/2010 12:00 AM CST [id number] CHIEF COMPLAINT / REASON FOR VISIT Nasal obstruction. HISTORY OF PRESENT ILLNESS The patient is doing well status post endoscopic sinus surgery and nasal surgery. PHYSICAL EXAM NOSE: The nose was cleaned. Debris was removed from the nose and also from the paranasal sinuses. The patient is healing well. IMPRESSION / REPORT / PLAN 1) Doing well, status post endoscopic sinus surgery and nasal surgery. I have asked the patient to return to see me sometime within the next 5 days. I have asked him to continue following my postoperative instructions. Santy Mccauley II, M.D. nac Electronically Signed By: SANTY MCCAULEY II, MD On: 04/20/2010 08:43 Source: [facility] MHSDOLBEYNONRADSYS Document Id: [id number] documented in this encounter Miscellaneous Notes Miscellaneous - Honey Lopez CGermanN.AGerman - 04/07/2010 3:27 PM CST Adult Base Engineer Intake/History Adult Base Engineer Intake/History Entered On: 04/07/2010 15:30 DIESEL TRACTOR OPERATOR Performed On: 04/07/2010 15:27 DIESEL TRACTOR OPERATOR by HONEY MORA Intake Chief Complaint: stuffy nose - headache -head pressure Temperature Core: 37.6C(Converted to: 99.7DegF) Peripheral Pulse Rate: 60/min Respiratory Rate: 16/min Systolic Blood Pressure: 100mmHg Diastolic Blood Pressure: 70mmHg NIBP Mean: 80mmHg BP Location: Right upper extremity HONEY MORA - 04/07/2010 15:27 DIESEL TRACTOR OPERATOR Subjective Pain Symptoms: No HONEY MORA 04/07/2010 15:27 DIESEL TRACTOR OPERATOR Dependent Habits Tobacco Use/Currently Using: Yes Exposure to Tobacco Smoke: Other: chews HONEY MORA 04/07/2010 15:27 DIESEL TRACTOR OPERATOR Tobacco Use Grid Type: Cigarettes Chewing tobacco Other Tobacco Frequency: 5 a day 1/4 tin a day HONEY MORA - 04/07/2010 15:27 DIESEL TRACTOR OPERATOR HONEY MORA 04/07/2010 15:27 DIESEL TRACTOR OPERATOR Caffeine Use Grid Caffeine Use: None HONEY MORA 04/07/2010 15:27 DIESEL TRACTOR OPERATOR Allergies Allergies (Active) NKA Estimated Onset Date: Unspecified ; Created By: IMTIAZ CLARK; Reaction Status: Active ; Category: Drug ; Substance: NKA ; Type: Allergy ; Updated By: IMTIAZ CLARK; Reviewed Date: 03/29/2010 11:36 DIESEL TRACTOR OPERATOR Source: [facility] POWERCHART Document Id: [id number] DIESEL TRACTOR OPERATOR!25 EL TRACTOR OPERATOR documented in this encounter Plan of Treatment Not on filedocumented as of this encounter Visit Diagnoses Not on filedocumented in this encounter Additional Health Concerns Assessment Noted Time PHQ-9 Depression Total Score: 8 11/02/2009 12:03 PM CD T documented as of this encounter
--- OUTSIDE RECORDS SUMMARY | 2022-02-10 14:45 | XMS_ITS | Encounter Summary ---
:1985 Author Organization [facility] Address [address] [place] [address] Care Team Providers Name Role Phone Elsewhere, Pcp Primary Care Provider Unavailable Encounter Details Date Type Department Care Team Description 06/09/2010 Historical Ophthalmology [facility] [place] [address] Social History Tobacco Use Types Packs/Day Years Used Date Smoking Tobacco: Never Assessed Sex Assigned at Date Recorded Male 10/17/2017 10:58 AM CDT documented as of this encounter Progress Notes Vic Ponce M.D. - 06/09/2010 8:41 AM CDT Eye General CHIEF COMPLAINT Sees Trails vision in both eyes HISTORY OF PRESENT ILLNESS no problems during day but at night if he looks at something and then shift gaze, he has sensation that the image trails similar to a comet, with either eye alone, can last up to 5 seconds or so, he does not think blinking influences and he does not know if he would still see image if closes lids. This has been present for 2 yrs and seems to be getting worse. Notices every night. No diplopia or anyother eye troubles. Has bad headaches but no other neuro symptoms. Does not see any colors or anything like that. No problems with dark adaptation or going from dark to light IMPRESSION / REPORT / PLAN #1 ill defined visual disturbances, ?etiology nothing her for palinopsia, we can't find any retinal or optic nerve cause. Tear film looks OK, no corneal irregularities or cataracts. Seen with JAL, we can't think of any ocular cause. He does have bad headaches. MRI in [place] is reportedly normal. will ask headache clinic for help too DIAGNOSIS #1 ill defined visual disturbances, ?etiology CDM Reports - EYEGEN Id: [id number] Status: Fnl documented in this encounter Plan of Treatment Not on filedocumented as of this encounter Visit Diagnoses Not on filedocumented in this encounter Additional Health Concerns Infection Onset Date Last Indicated Resolved Time COVID19 Pending 05/27/2021 05/28/2021 05/29/2021 12:02 AM CDT COVID19 Pending 06/17/2021 06/18/2021 06/18/2021 9:25 PM CDT Assessment Noted Time PHQ-9 Depression Total Score: 8 11/02/2009 12:03 PM CD T documented as of this encounter Care Teams Energy Conservation Specialist Relationship Specialty Start Date End Date Elsewhere, Pcp PCP - General Family Medicine 11/04/19 documented as of this encounter
--- OUTSIDE RECORDS SUMMARY | 2022-02-10 14:45 | XMS_ITS | Encounter Summary ---
:1985 Author Organization [facility] Address [address] [place] [address] Care Team Providers Name Role Phone Unavailable Primary Care Provider Unavailable Encounter Details Date Type Department Care Team Description 04/12/2010 Hospital Encounter HX [facility] ENT Provider, Historic al Social History Tobacco Use Types Packs/Day Years Used Date Smoking Tobacco: Never Assessed Sex Assigned at Date Recorded Male 10/17/2017 10:58 AM CDT documented as of this encounter Progress Notes Conversion, Historical Provider Ser - 04/12/2010 12:00 AM CST [id number] CHIEF COMPLAINT / REASON FOR VISIT Nasal obstruction. HISTORY OF PRESENT ILLNESS The patient is doing well status post nasal surgery and endoscopic sinus surgery. PHYSICAL EXAM ENT: Nasal endoscopy was performed. The patient has excellent healing bilaterally. Crusting was removed. There is some inflamed mucosa of the left maxillary sinus. This is not infected, but more inflamed. IMPRESSION/REPORT/PLAN 1) Resolving chronic sinusitis. 2) Resolving nasal obstruction. DISCUSSION & PLAN: I have asked the patient to return to see me in 2 days. Santy Mccauley II, M.D. [facility] Electronically Signed By: SANTY MCCAULEY II, MD On: 04/24/2010 09:33 Source: [facility] MHSDOLBEYNONRADSYS Document Id: [id number] documented in this encounter Miscellaneous Notes Miscellaneous - Vanessa Barba - 04/12/2010 2:35 PM CST Adult Civil Service Worker Intake/History Adult Civil Service Worker Intake/History Entered On: 04/12/2010 14:42 AUDIO VISUAL COORDINATOR Performed On: 04/12/2010 14:35 AUDIO VISUAL COORDINATOR by VANESSA BARBA Intake Chief Complaint: 1 week postop nasal and endoscopic sinus surgery Temperature Oral: 37.5C(Converted to: 99.5DegF) (HI) Peripheral Pulse Rate: 96/min Systolic Blood Pressure: 108mmHg Diastolic Blood Pressure: 58mmHg NIBP Mean: 75mmHg BP Location: Right upper extremity VANESSA BARBA - 04/12/2010 14:35 AUDIO VISUAL COORDINATOR Subjective Pain Symptoms: Yes VANESSA BARBA 04/12/2010 14:35 AUDIO VISUAL COORDINATOR Pain Pain Assessment Grid Pain 1 Location: Frontal (Comment: headache [VANESSA BARBA - 04/12/2010 14:35 AUDIO VISUAL COORDINATOR] ) VANESSA BARBA - 04/12/2010 14:35 AUDIO VISUAL COORDINATOR Dependent Habits Tobacco Use/Currently Using: Yes Exposure to Tobacco Smoke: Patient smokes VANESSA BARBA - 04/12/2010 14:35 AUDIO VISUAL COORDINATOR Tobacco Use Grid Type: Cigarettes Chewing tobacco Cigarette Use Packs/Day: 0.5 VANESSA BARBA - 04/12/2010 14:35 AUDIO VISUAL COORDINATOR VANESSA BARBA - 04/12/2010 14:35 AUDIO VISUAL COORDINATOR Caffeine Use Grid Caffeine Use: None VANESSA BARBA 04/12/2010 14:35 AUDIO VISUAL COORDINATOR Allergies Allergies (Active) NKA Estimated Onset Date: Unspecified ; Created By: IMTIAZ CLARK; Reaction Status: Active ; Category: Drug ; Substance: NKA ; Type: Allergy ; Updated By: IMTIAZ CLARK; Reviewed Date: 04/12/2010 14:34 AUDIO VISUAL COORDINATOR Source: [facility] HipuiCHART Document Id: [id number] AUDIO VISUAL COORDINATOR!27 O VISUAL COORDINATOR documented in this encounter Plan of Treatment Not on filedocumented as of this encounter Visit Diagnoses Not on filedocumented in this encounter Additional Health Concerns Assessment Noted Time PHQ-9 Depression Total Score: 8 11/02/2009 12:03 PM CD T documented as of this encounter
--- OUTSIDE RECORDS SUMMARY | 2022-02-10 14:45 | XMS_ITS | Encounter Summary ---
:1985 Author Organization [facility] Address [address] [place] [address] Care Team Providers Name Role Phone Unavailable Primary Care Provider Unavailable Encounter Details Date Type Department Care Team Description 03/08/2010 Hospital Encounter HX [facility] OP Provider, Ramiro woodson Social History Tobacco Use Types Packs/Day Years Used Date Smoking Tobacco: Never Assessed Sex Assigned at Date Recorded Male 10/17/2017 10:58 AM CDT documented as of this encounter Plan of Treatment Not on filedocumented as of this encounter Procedures Procedure Name Priority Date/Time Associated Diagnosis Comme nts CT SINUSES WITHOUT Routine 03/08/2010 1:37 PM Res ults for this IV CONTRAST GAS LINE INSTALLER SUPERVISOR procedure are i n the results section. documented in this encounter Results CT Sinuses without IV Contrast (03/08/2010 1:37 PM GAS LINE INSTALLER SUPERVISOR) Anatomical Region Laterality Modality Head N/A Computed Tomography Specimen (Source) Anatomical Collection Method Collection Time Re ceived Time Location / / Volume Laterality 03/08/2010 1:37 PM GAS LINE INSTALLER SUPERVISOR Addenda Addendum by Provider, Delvin Pathak 03/08/2010 1:37 PM GAS LINE INSTALLER SUPERVISOR RAD^^^OW CT Sinus wo contrast 03/08/2010 13:37:10 Narrative 03/08/2010 1:58 PM GAS LINE INSTALLER SUPERVISOR Noncontrast CT of the sinuses. INDICATION Chronic maxillary sinusitis. ??Prior talia al surgery as a child, not otherwise specified. FINDINGS Mild circumferential mucosal thickening of the bilateral maxillary sinuses, more prominent on the left. ??Mild/moder ate mucosal narrowing of the bilateral ostiomeatal complexes, more prominent on the left. ??Mucosal narrowing of the bilateral anterior recesses, also more p rominent on the left. ??Approximately 1.9 cm mucus retention cyst/polyp along the posterior medial aspect of the right maxillary sinus. Mild/moderate mucosal thickening of the bilateral frontal sinuses more prompt on the left. Mild nasal septal bowing convex right. Normal appearance of the visualized intr acranial contents, orbits and their contents. Normal appearance of the bilateral tempo ral mandibular joints. ??Normal appearance of the bilateral mastoid air cells. Abdiel Stein, ?? kermit ?D: 0 03/08/2010T: 03/08/2010 01:58 pm M.D. ? THIS IS AN ELEC TRONICALLY VERIFIED REPORT 03/08/2010 1:58 PM: ??Cristina Schroeder Procedure Note Abdiel Stein M.D. / Provider, Tamra mckeon M.D. - 07/27/[address] of the sinuses. INDICATION Chronic maxillary sinusitis. Prior nasal surgery as a child, not otherwise specified. FINDINGS Mild circumferential mucosal thickening of the bilateral maxillary sinuses, more prominent on the left. Mild/moderat e mucosal narrowing of the bilateral ostiomeatal complexes, more prominent on the left. Mucosal narrowing of the bilateral anterior recesses, also more p rominent on the left. Approximately 1.9 cm mucus retention cyst/polyp along the posterior medial aspect of the right maxillary sinus. Mild/moderate mucosal thickening of the bilateral frontal sinuses more prompt on the left. Mild nasal septal bowing convex right. Normal appearance of the visualized intr acranial contents, orbits and their contents. Normal appearance of the bilateral tempo ral mandibular joints. Normal appearance of the bilateral mastoid air cells. kermit Schroeder T: 01:58 pm M.D. THIS IS AN ELECTRONICALLY VERIFIED REPORT 03/08/2010 1:58 PM: Abdiel Stein M.D. Historical Provider IMG CT PROCEDURES documented in this encounter Visit Diagnoses Not on filedocumented in this encounter Additional Health Concerns Assessment Noted Time PHQ-9 Depression Total Score: 8 11/02/2009 12:03 PM CD T documented as of this encounter
--- OUTSIDE RECORDS SUMMARY | 2022-02-10 14:45 | XMS_ITS | Encounter Summary ---
:1985 Author Organization [facility] Address [address] [place] [address] Care Team Providers Name Role Phone Unavailable Primary Care Provider Unavailable Encounter Details Date Type Department Care Team Description 05/11/2010 Hospital Encounter HX NO MAPPING John Garrison M.D. [address] [place] [phone] (Wo rk) Social History Tobacco [...]
--- OUTSIDE RECORDS SUMMARY | 2022-02-10 14:45 | XMS_ITS | Encounter Summary ---
:1985 Author Organization [facility] Address [address] [place] [address] Care Team Providers Name Role Phone Unavailable Primary Care Provider Unavailable Encounter Details Date Type Department Care Team Description 04/02/2010 Hospital Encounter HX NO MAPPING Provider, Historical Social History Tobacco Use Types Packs/Day Years Used Date Smoking Tobacco: Never Assessed Sex Assigned at Date Recorded Male 10/17/2017 10:58 AM CDT documented as of this encounter Plan of Treatment Not on filedocumented as of this encounter Procedures Procedure Name Priority Date/Time Associated Diagnosis Comme nts SURGICAL PATHOLOGY Routine 04/02/2010 12:00 AM Re sults for this CORE PILER procedure are i n the results section. documented in this encounter Results Pathology Surgical Pathology (04/02/2010 12:00 AM CORE PILER) Specimen (Source) Anatomical Location Collection Method / Collectio n Time Received Time / Laterality Volume 04/02/2010 Narrative [facility] - 04/12/19 11 4:04 PM CORE PILER PATIENT IMAGES Choose the Image button to view related documents. Historical Provider LAB SURG PATH ORDERABLES Performing Organization Address City/State/ZIP Code Phon e Number [facility] documented in this encounter Visit Diagnoses Not on filedocumented in this encounter Additional Health Concerns Assessment Noted Time PHQ-9 Depression Total Score: 8 11/02/2009 12:03 PM CD T documented as of this encounter
--- OUTSIDE RECORDS SUMMARY | 2022-02-10 14:45 | XMS_ITS | Encounter Summary ---
:1985 Author Organization [facility] Address [address] [place] [address] Care Team Providers Name Role Phone Unavailable Primary Care Provider Unavailable Encounter Details Date Type Department Care Team Description 04/16/2010 Hospital Encounter HX [facility] Luis Rodriguez Jr., M.D. [address], [place] [phone] (Wo rk) Social History Tobacco Use Types Packs/Day Years Used Date Smoking Tobacco: Never Assessed Sex Assigned at Date Recorded Male 10/17/2017 10:58 AM CDT documented as of this encounter Progress Notes Vicky Lopez, C.O.A. - 04/16/2010 1:58 PM CST [facility] Exam [facility] Exam Entered On: 04/16/2010 14:23 MANAGEMENT SCIENTIST Performed On: 04/16/2010 13:58 MANAGEMENT SCIENTIST by VICKY LOPEZ Chief Complaint and History Chief Complaint: Other: 24 yo HERE FOR VF STILL SEEING SHADOWS IN VISION. IT'S LIKE THINGS HAVE A TRAIL BEHIND THEM. ROS: HEART AND LUNGS NE.G VICKY LOPEZ - 04/16/2010 13:58 MANAGEMENT SCIENTIST Vision Testing Visual Acuity: Without correction Eye, Right w/o Correction: 20/20 Eye, Left w/o Correction: 20/20 VICKY LOPEZ - 04/16/2010 13:58 MANAGEMENT SCIENTIST Ocular Health Ocular Health Ext Rt Eye Grid Ext Rt Eye - Lids/Lashes: Normal Ext Rt Eye - Conjunctiva: Normal Ext Rt Eye - Cornea: Normal Ext Rt Eye - A/C: Normal Ext Rt Eye - Iris: Normal Ext Rt Eye - Lens: Normal LUIS HUERTA MD - 04/16/2010 14:35 MANAGEMENT SCIENTIST Ocular Health Ext Lt Eye Grid Ext Lt Eye - Lids/Lashes: Normal Ext Lt Eye - Conjunctiva: Normal Ext Lt Eye - Cornea: Normal Ext Lt Eye - A/C: Normal Ext Lt Eye - Iris: Normal Ext Lt Eye - Lens: Normal LUIS HUERTA MD - 04/16/2010 14:35 MANAGEMENT SCIENTIST Source: [facility] POWERCHART Document Id: [id number] MANAGEMENT SCIENTIST!16 GEMENT SCIENTIST Luis Huerta M.D. - 04/16/2010 12:00 AM CST [id number] CHIEF COMPLAINT/REASON FOR VISIT Check of visual kathleen today for some asymmetry. HISTORY OF PRESENT ILLNESS No specific findings of scotoma or advanced scotoma, despite his cup-to-disk ratio asymmetry. He still complains of this after-image, particularly at night. He says it is like a ghosting he can see with a lighted device. It happens with everything, not only at night. IMPRESSION/REPORT/PLAN I am kind of at a crossroads without being able to offer him anything here locally, so we will set him up with an appointment with Dr. Vic Ponce at [facility] for a second opinion. Luis Huerta M.D. [facility] Electronically Signed By: LUIS HUERTA MD On: 04/21/2010 02:59 Source: [facility] MHSDOLBEYNONRADSYS Document Id: [id number] GEMENT SCIENTIST documented in this encounter Miscellaneous Notes Miscellaneous - Luis Huerta M.D. - 04/16/2010 12:00 AM CST [id number] May 04, 2010 [facility] Vic Ponce M.D. Department of Ophthalmology [address] [place] [address] Re: ALEJANDRA ADHIKARI Dear Doctor Rosario: I am writing to you to see if you can evaluate a patient of mine. The patient's name is Alejandra Adhikari. He has some atypical complaints of seeing an after-image around objects, particularly at night but somewhat during the day as well. His eye examination is essentially within normal limits. He is mildly myopic at -.25 in the right eye and -.50 in the left eye. Visual acuity, with correction, is 20/20. A visual field was performed in April 2010, which shows no neurological deficits. Optic nerve is within normal limits as is macular examination. Essentially, I have a patient with minimal myopia who complains of seeing an after-image around objects and is bothered by this. He compares this as seeing a ghost, even through the lighted device, except for nothing in these devices is lit. Also, this does not happen only at night but with every object. I would like to know if you would be willing to evaluate the patient. Perhaps an ERG or EOG might help us a little bit more or your past knowledge base that you have built up over the years might help us in at least defining what this patient is undergoing. If you have any further questions, please feel free to contact me at the address or phone number above. Sincerely, Luis Huerta M.D. Department of Ophthalmology MEM[facility] Electronically Signed By: LUIS HUERTA MD On: 05/05/2010 11:48 Source: [facility] MHSDOLBEYNONRADSYS Document Id: [id number] GEMENT SCIENTIST documented in this encounter Plan of Treatment Not on filedocumented as of this encounter Visit Diagnoses Not on filedocumented in this encounter Additional Health Concerns Assessment Noted Time PHQ-9 Depression Total Score: 8 11/02/2009 12:03 PM CD T documented as of this encounter
--- OUTSIDE RECORDS SUMMARY | 2022-02-10 14:45 | XMS_ITS | Encounter Summary ---
:1985 Author Organization [facility] Address [address] [place] [address] Care Team Providers Name Role Phone Unavailable Primary Care Provider Unavailable Encounter Details Date Type Department Care Team Description 04/14/[address] [facility] ENT Provider, Historic al Social History Tobacco Use Types Packs/Day Years Used Date Smoking Tobacco: Never Assessed Sex Assigned at Date Recorded Male 10/17/2017 10:58 AM CDT documented as of this encounter Progress Notes Conversion, Historical Provider Ser - 04/14/2010 12:00 AM CST [id number] CHIEF COMPLAINT / REASON FOR VISIT Nasal congestion. HISTORY OF PRESENT ILLNESS The patient is having intermittent mild nasal obstruction. He is doing very well postoperatively. His symptoms are gradually improving. PHYSICAL EXAM ENT: Nasoendoscopy was performed. The patient is having improvement in the inflammation of the left maxillary sinus. His paranasal sinuses overall are healing very well. Slight crusting and debris was removed. IMPRESSION/REPORT/PLAN 1) Doing well status post endoscopic sinus surgery and nasal surgery. I have asked the patient to return to see me sometime within the next week. I have encouraged him to use the topical steroid nasal spray and to continue with nasal irrigation and to follow my other instructions. Santy Mccauley II, M.D. da Electronically Signed By: SANTY MCCAULEY II, MD On: 04/27/2010 07:48 Source: [facility] MHSDOLBEYNONRADSYS Document Id: [id number] documented in this encounter Miscellaneous Notes Miscellaneous - Harsha Renteria L.P.N. - 04/14/2010 1:52 PM TRUCK RAILROAD AND BUS MOTOR MECHANIC Adult Auto Body Detailer Intake/History Adult Auto Body Detailer Intake/History Entered On: 04/14/2010 13:55 TRUCK RAILROAD AND BUS MOTOR MECHANIC Performed On: 04/14/2010 13:52 TRUCK RAILROAD AND BUS MOTOR MECHANIC by HARSHA RENTERIA Intake Chief Complaint: Post-op visit. Had sinus surgery on 04/02/2010. Temperature Oral: 37.6C(Converted to: 99.7DegF) (HI) Peripheral Pulse Rate: 78/min Systolic Blood Pressure: 90mmHg (LOW) Diastolic Blood Pressure: 60mmHg NIBP Mean: 70mmHg HARSHA RENTERIA - 04/14/2010 13:52 TRUCK RAILROAD AND BUS MOTOR MECHANIC Subjective Pain Symptoms: Yes HARSHA RENTERIA 04/14/2010 13:52 TRUCK RAILROAD AND BUS MOTOR MECHANIC Pain Pain Assessment Grid Pain 1 Location: Head Intensity: 8 HARSHA RENTERIA - 04/14/2010 13:52 TRUCK RAILROAD AND BUS MOTOR MECHANIC Dependent Habits Tobacco Use/Currently Using: Yes Exposure to Tobacco Smoke: Patient smokes HARSHA RENTERIA - 04/14/2010 13:52 TRUCK RAILROAD AND BUS MOTOR MECHANIC Tobacco Use Grid Type: Cigarettes Chewing tobacco Cigarette Use Packs/Day: 0.5 HARSHA RENTERIA - 04/14/2010 13:52 TRUCK RAILROAD AND BUS MOTOR MECHANIC HARSHA RENTERIA 04/14/2010 13:52 TRUCK RAILROAD AND BUS MOTOR MECHANIC Caffeine Use Grid Caffeine Use: None HARSHA RENTERIA 04/14/2010 13:52 TRUCK RAILROAD AND BUS MOTOR MECHANIC Allergies Allergies (Active) NKA Estimated Onset Date: Unspecified ; Created By: IMTIAZ CLARK; Reaction Status: Active ; Category: Drug ; Substance: NKA ; Type: Allergy ; Updated By: IMTIAZ CLARK; Reviewed Date: 04/12/2010 14:34 TRUCK RAILROAD AND BUS MOTOR MECHANIC Source: [facility] POWERCHART Document Id: [id number] TRUCK RAILROAD AND BUS MOTOR MECHANIC!27 K RAILROAD AND BUS MOTOR MECHANIC documented in this encounter Plan of Treatment Not on filedocumented as of this encounter Visit Diagnoses Not on filedocumented in this encounter Additional Health Concerns Assessment Noted Time PHQ-9 Depression Total Score: 8 11/02/2009 12:03 PM CD T documented as of this encounter
--- OUTSIDE RECORDS SUMMARY | 2022-02-10 14:45 | XMS_ITS | Encounter Summary ---
:1985 Author Organization [facility] Address [address] [place] [address] Care Team Providers Name Role Phone Unavailable Primary Care Provider Unavailable Encounter Details Date Type Department Care Team Description 04/03/2010 Hospital Encounter HX NO MAPPING John Garrison M.D. [address] [place] [phone] (Wo rk) Social History Tobacco [...]
--- OUTSIDE RECORDS SUMMARY | 2022-02-10 14:45 | XMS_ITS | Encounter Summary ---
:1985 Author Organization [facility] Address [address] [place] [address] Care Team Providers Name Role Phone Unavailable Primary Care Provider Unavailable Encounter Details Date Type Department Care Team Description 07/26/2010 Hospital Encounter [facility]X [facility] Prashanth Nieves P.A.-C. [address] [place] [address] (Wo rk) Social History Tobacco Use Types Packs/Day Years Used Date Smoking Tobacco: Never Assessed Sex Assigned at Date Recorded Male 10/17/2017 10:58 AM CDT documented as of this encounter Progress Notes Luz Maria Nieves P.A.-C., P.A. - 07/26/2010 12:00 AM CDT [id number] CHIEF COMPLAINT / REASON FOR VISIT Follow up chlamydia, discuss several other issues. HISTORY OF PRESENT ILLNESS Patient is a 24-year-old male who was seen in the Emergency Room on 07/11/2010 for some abdominal pain and dysuria. He was found to have positive chlamydia. He was placed on Zithromax 250 mg daily for 10 days and he has completed this. He was instructed to follow up which is the reason for appointment today. He does have several other issues today he would like to discuss as follows. First of all, he has a history of tobacco abuse smoking about 1/4 pack per day but also chews about 1/2 to 1/3 tin of chewing tobacco per day. He is actually interested in smoking cessation and we spent about 10 to 15 minutes discussing the various options for smoking cessation. With his history of depression and anxiety, he is concerned about the use of Chantix. He thinks he would do better with a form of nicotine replacement and thought some nicotine gum would be a good option for him. He has never really tried quitting tobacco use in the past but has quit for several days going cold-turkey. He also has a history of migraine headaches. For the most part, has been under decent control. He uses Imitrex, Naprosyn and Zofran as needed. He does need a refill of these three medications. He is using Imitrex about four to five times per month. This does seem to work quite well. He has had otherwise negative evaluation. He does have some chronic sinusitis and follows with Dr. Mc Jensen II in ENT on a regular basis for these issues. He states that he has used Ultram in the past for when he has severe headaches and is requesting to have a prescription for this. With his history of substance abuse, I did agree to 15 tablets but would not offer refills. He has been illicit drug free for 3 to 4 months. He is currently unemployed and is applying for disability due to his mental health and substance abuse issues. His mental health medications, Klonopin and Zoloft, are managed by [facility] [place], [facility]. 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 At the end of today's visit, he inquires about possible male infertility. He states that he has been sexually active with the same partner for more than 3 years without use of contraception and has never fathered children. This person does have a child from another partner. He is no longer with his girlfriend but is inquiring about being tested to see if I can ever have kids or not. CURRENT MEDICATIONS Zoloft 50 mg daily. Klonopin 2 mg twice a day. Multivitamin one daily. Naprosyn 500 mg twice a day as needed. Imitrex 50 mg as needed migraine. Suboxone 1 mg daily -- patient is tapering off. Zofran 4 mg as needed nausea associated with migraines. ALLERGIES No known drug allergies. PAST MEDICAL / SURGICAL HISTORY 1) Chronic sinusitis. 2) Migraine headaches. 3) Polysubstance abuse, has been clean. 4) Tobacco abuse. 5) Recent chlamydia. SOCIAL HISTORY As above. He is not employed. He smokes and uses tobacco as noted above. VITAL SIGNS TEMP: 36.5 degreesC PULSE: 64 RESP RATE: 16/min BLOOD PRESSURE: 102/64 WEIGHT: 66.2 kg PHYSICAL EXAM GENERAL: Neatly groomed, appropriately dressed, well-appearing male in no acute distress. MENTAL: Mood and affect are appropriate. Maintains good eye contact. Normal thought process and speech pattern. NEURO: Cranial nerves 2-12 grossly intact. Normal strength, ambulation, and cerebellar function. IMPRESSION / REPORT / PLAN 1) Migraine headaches. Plan: I did refill his Imitrex, Zofran, and Naprosyn which he takes on an as-needed basis. I did agree to Ultram 50 mg to use as needed, #15 with no refills. He does need to be seen and evaluated for further refills given his past history of substance abuse and he does agree with this. 2) Tobacco abuse, interested in cessation. Plan: As above, several minutes were spent in discussing treatment options and he would like to try nicotine gum 2 mg every 1 to 2 hours as needed, usual risks, benefits, side effects, directions were discussed. Follow up in 1 month as needed. 3) Recent chlamydia. Plan: I would recommend retesting to assure resolution in about 2 weeks as he has just completed the course of antibiotics. He is asymptomatic. Safe sex practices were reviewed, using barrier methods for protection of STIs and treatment for all recent partners. Lab orders for repeat urine chlamydia were entered and he will schedule in 2 weeks. 4) Substance abuse. Plan: He will continue with his current treatment program and following with [facility] and [facility] managing his medications. 5) Concerns of infertility. Plan: At the end of today's appointment, he does pose this question. He is interested in testing for possible infertility. I will refer him to Dr. Teodoro Wood, Urology, to further discuss this and for further recommendations. Alejandra is in agreement with this plan. Otherwise, symptoms to warrant more urgent evaluation were discussed. ADMINISTRATIVE BILLING Total Time: Greater than 30 minutes spent with patient, more than 20 minutes was spent in addressing patient's needs including discussion of treatment options for his smoking cessation and recommended followup testing and medication refills. Sary Reynoso Electronically Signed By: LUZ AMRIA NIEVES On: 08/03/2010 09:24 AM Source: [facility] MHSDOLBEYNONRADSYS Document Id: [id number] documented in this encounter Miscellaneous Notes Miscellaneous - Luz Maria Nieves P.A.-C., P.A. - 07/26/2010 2:09 PM CDT Ambulatory Patient Summary [facility] [address] [place] [address] Visit Information Name: ALEJANDRA ADHIKARI Current Date: 07/26/2010 14:09:24 Primary Care Provider: LUZ MARIA NIEVES Your Medications Here is a list of your medications. It is important to take your medications as directed. Use a pillbox or chart to help remind you to take your medications. Please let your doctor or nurse know if you have problems taking your medications. Medication/Strength Dose Route Frequency Indications/Special Instructions/Comments nicotine (nicotine 2mg oral transmucosal gum) 2 mg Transmucosal every 2 hours nicotine replacement tramadol (Ultram 50 mg oral tablet) 1-2 tabs Oral every 6-8 hours as needed for Pain clonazepam (Klonopin 2 mg oral tablet) 1 tab(s) Oral two times a day managed by Glenn Miramontes at [facility] naproxen (Naprosyn 500 mg oral tablet) [...] a day managed by Glenn Miramontes at [facility] Your Allergies & Intolerances Substance Reaction [...] Lipid Panel every 5 years Age 20-75 07/26/2010 Checks blood for good (HDL) and bad (LDL) cholesterol. Know your numbers, they are one indicator of your risk for heart attack and stroke. Vaccine: Tetanus every 10 years 07/26/2010 Immunization to help prevent you from getting the seriousdisease Tetanus (Lockjaw). Your Upcoming Appointments Date Time Location Reason Provider 08/09/2010 14:00 [facility] 09/29/2010 15:30 [facility] Urology discuss infertility concerns Teodoro Wood MD Your Goals/Additional instructions: Source: [facility] POWERCHART Document Id: [id number] Electronically signed by [facility] Contract Law Specialist [id number] at 08/07/2016 6:27 PM CDT Miscellaneous - Luz Maria Nieves, P.A.-C., P.A. - 07/26/2010 2:09 PM CDT Ambulatory Depart Summary [facility] [address] [place] [id number] Visit Information Name: LYLE ALEJANDRA Current Date: 07/26/2010 14:09:23 Primary Care Provider: LUZ MARIA NIEVES ALEJANDRA ADHIKARI has been given the following list of medications: Your Medications It is important to take your medications as directed. Use a pill box or chart to help remind you to take your medications. Please let your doctor or nurse know if you have problems taking your medications. Medication/Strength Dose Route Frequency Indications/Special Instructions/Comments nicotine (nicotine 2mg oral transmucosal gum) 2 mg Transmucosal every 2 hours nicotine replacement tramadol (Ultram 50 mg oral tablet) 1-2 tabs Oral every 6-8 hours as needed for Pain clonazepam (Klonopin 2 mg oral tablet) 1 tab(s) Oral two times a day managed by Glenn Miramontes at [facility] naproxen (Naprosyn 500 mg oral tablet) [...] a day managed by Glenn Miramontes at [facility] Additional Information: Yes - Current list of reconciled medications is provided and explained to the patient and/or family, guardian/caregiver. Source: [facility] POWERCHART Document Id: [id number] Electronically signed by [facility], [facility] Contract Law Specialist [id number] at 08/07/2016 6:27 PM CDT Miscellaneous - Conversion, Historical Provider Ser - 07/26/2010 1:18 PM CDT Adult Utility Technician Intake/History Adult Utility Technician Intake/History Entered On: 07/26/2010 13:24 CDT Performed On: 07/26/2010 13:18 CDT by BRIDGER ZHENG Intake Chief Complaint: -FU on positive chlamydia result -pt states has been achy- not sure if d/t -chlamydia or just d/t exercise -wants to discuss tramadol for pain -discuss smoking cessation/nicotine patch Ambulatory Intake Additional Information: needs refills for imitrex, zofran, and naproxen Temperature Oral: 36.5C(Converted to: 97.7DegF) Peripheral Pulse Rate: 64/min Respiratory Rate: 16/min Systolic Blood Pressure: 102mmHg Diastolic Blood Pressure: 64mmHg NIBP Mean: 77mmHg BP Location: Right upper extremity Actual Weight: 66.200kg(Converted to: 145lb 15oz) Dosing Weight Clinic: 66.20kg BRIDGER ZHENG - 07/26/2010 13:18 CDT General Info Information Given By: Patient Preferred Communication Mode: Verbal Languages: Paraguayan BRIDGER ZHENG - 07/26/2010 13:18 CDT Subjective Pain Symptoms: Yes BRIDGER ZHENG 07/26/2010 13:18 CDT Pain Pain Assessment Grid Pain 1 Location: Generalized Laterality: Bilateral Intensity: 6 Quality: Aching (Comment: 'muscle aches real sore [BRIDGER ZHENG 07/26/2010 13:18 CDT] ) BRIDGER ZHENG 07/26/2010 13:18 CDT Dependent Habits Tobacco Use/Currently Using: Yes Exposure to Tobacco Smoke: Patient smokes BRIDGER ZHENG 07/26/2010 13:18 CDT Tobacco Use Grid Type: Cigarettes Chewing tobacco Cigarette Use Packs/Day: 1.0 BRIDGER ZHENG 07/26/2010 13:18 CDT BRIDGER ZHENG 07/26/2010 13:18 CDT Caffeine Use Grid Caffeine Use: None BRIDGER ZHENG 07/26/2010 13:18 CDT Allergy Allergies (Active) NKA Estimated Onset Date: Unspecified ; Created By: IMTIAZ CLARK; Reaction Status: Active ; Category: Drug ; Substance: NKA ; Type: Allergy ; Updated By: IMTIAZ CLARK; Reviewed Date: 07/26/2010 13:16 CDT [facility] Document Id: [id number] CDT!38 documented in this encounter Plan of Treatment Not on filedocumented as of this encounter Visit Diagnoses Not on filedocumented in this encounter Additional Health Concerns Assessment Noted Time PHQ-9 Depression Total Score: 8 11/02/2009 12:03 PM CD T documented as of this encounter
--- OUTSIDE RECORDS SUMMARY | 2022-02-10 14:45 | XMS_ITS | Encounter Summary ---
:1985 Author Organization [facility] Address [address] [place] [address] Care Team Providers Name Role Phone Unavailable Primary Care Provider Unavailable Encounter Details Date Type Department Care Team Description 07/11/2010 Hospital Encounter [facility] Agueda Velasquez M.D. [address] [place] [address] (Wo rk) Social History Tobacco Use Types Packs/Day Years Used Date Smoking Tobacco: Never Assessed Sex Assigned at Date Recorded Male 10/17/2017 10:58 AM CDT documented as of this encounter Progress Notes Michela Velasquez M.D. - 07/11/2010 12:00 AM CDT [id number] HISTORY OF PRESENT ILLNESS This is a 24-year-old male who is here with abdominal pain, back pain that has been bothering him for just about 1 day. It is quite severe today. He was able to eat a little bit yesterday without too much trouble, but pain is actually worse today. VITAL SIGNS Vitals per EMR. PHYSICAL EXAM GENERAL: The patient is awake, alert, and in no acute distress. ABDOMEN: Fairly normoactive bowel sounds, fairly diffuse tenderness, almost a little bit of rigidity to the abdominal musculature when we are trying to get him to relax to palpate his abdomen. Most severe tenderness seems to be in the upper abdomen, kind of diffusely across the abdomen. He also has bilateral costovertebral angle area tenderness and spinal tenderness between the CVA areas on palpation as well. IMPRESSION / REPORT / PLAN 1) Abdominal and back pain. PLAN: We are going to send this patient to the Emergency Room for further evaluation. Concerns include but not be limited to the pancreas and liver. Discussed with Dr. Dante Mcdaniel who is expecting him. Delvin Izaguirre Electronically Signed By: MICHELA VELASQUEZ MD On: 07/15/2010 11:28 Source: [facility] MHSDOLBEYNONRADSYS Document Id: [id number] documented in this encounter Miscellaneous Notes Miscellaneous - Bebe John L.P.N. - 07/11/2010 10:43 AM CDT Adult Medical Terminologist Intake/History Adult Medical Terminologist Intake/History Entered On: 07/11/2010 10:47 CDT Performed On: 07/11/2010 10:43 CDT by BEBE JOHN Intake Chief Complaint: Stomach burning and low back ache. Onset of Symptoms: 1 day Temperature Oral: 36.6C(Converted to: 97.9DegF) Peripheral Pulse Rate: 66/min Respiratory Rate: 18/min Systolic Blood Pressure: 110mmHg Diastolic Blood Pressure: 60mmHg NIBP Mean: 77mmHg BP Location: Right upper extremity Actual Weight: 67.600kg(Converted to: 149lb 1oz) Dosing Weight Clinic: 67.60kg BEBE JOHN - 07/11/2010 10:43 CDT Subjective Pain Symptoms: Yes BEBE JOHN 07/11/2010 10:43 CDT Pain Pain Assessment Grid Pain 1 Pain 2 Location: Abdomen Lower back BEBE JOHN 07/11/2010 10:43 CDT BEBE JOHN 07/11/2010 10:43 CDT Dependent Habits Tobacco Use/Currently Using: Yes Exposure to Tobacco Smoke: Patient smokes BEBE JOHN 07/11/2010 10:43 CDT Tobacco Use Grid Type: Cigarettes Chewing tobacco Cigarette Use Packs/Day: 1.0 BEBE JOHN 07/11/2010 10:43 CDT BEBE JOHN 07/11/2010 10:43 CDT Caffeine Use Grid Caffeine Use: None BEBE JOHN 07/11/2010 10:43 CDT Allergy Allergies (Active) NKA Estimated Onset Date: Unspecified ; Created By: QUAINTANCE, IMTIAZ J; Reaction Status: Active ; Category: Drug ; Substance: NKA ; Type: Allergy ; Updated By: IMTIAZ CLARK; Reviewed Date: 07/11/2010 10:42 CDT Source: [facility] [employer] Document Id: [id number] CDT!33 documented in this encounter Plan of Treatment Not on filedocumented as of this encounter Visit Diagnoses Not on filedocumented in this encounter Additional Health Concerns Assessment Noted Time PHQ-9 Depression Total Score: 8 11/02/2009 12:03 PM CD T documented as of this encounter
--- OUTSIDE RECORDS SUMMARY | 2022-02-10 14:45 | XMS_ITS | Encounter Summary ---
:1985 Author Organization [facility] Address [address] [place] [address] Care Team Providers Name Role Phone Unavailable Primary Care Provider Unavailable Encounter Details Date Type Department Care Team Description 06/08/2010 Hospital Encounter HX NO MAPPING Alexys Church M.D. [address], [address] [place] [address] (Wo rk) Social History Tobacco Use Types [...]
--- OUTSIDE RECORDS SUMMARY | 2022-02-10 14:46 | XMS_ITS | Encounter Summary ---
:1985 Author Organization [facility] Address [address] [place] [address] Care Team Providers Name Role Phone Unavailable Primary Care Provider Unavailable Encounter Details Date Type Department Care Team Description 09/30/2009 Hospital Encounter [facility] Prashanth Nieves P.A.-C. [address] [place] [address] (Wo rk) Social History Tobacco Use Types Packs/Day Years Used Date Smoking Tobacco: Never Assessed Sex Assigned at Date Recorded Male 10/17/2017 10:58 AM CDT documented as of this encounter Progress Notes Barrett Nieves P.A.-C., P.A. - 09/30/2009 12:00 AM CDT [id number] CHIEF COMPLAINT / REASON FOR VISIT Headaches. HISTORY OF PRESENT ILLNESS Tarik is a 23-year-old who was recently seen for medication review and exam for entrance into [facility]. He presents today with ongoing headaches which have been present for the past few weeks. 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 He has a headache at least 5-6 days per week. He has been taking ibuprofen 600 mg every 4-6 hours on a fairly regular basis. He averages about 9-12 ibuprofen tablets daily. He denies any acute head injury or trauma. At times, the headaches are preceded with visual aura where he sees wavy lines of color. He is uncertain when he had his last eye exam but it has been a few years ago. CURRENT MEDICATIONS Hydroxyzine 25 mg 1 by mouth 4 times daily as needed for anxiety. ALLERGIES No known drug allergies. PAST MEDICAL / SURGICAL HISTORY 1) As outlined in previous note from 09/16/2009. VITAL SIGNS WEIGHT: 68.6 kg TEMP: 36.6 degreesC RESP RATE: 16/min PULSE: 72 BLOOD PRESSURE: 116/68 PHYSICAL EXAM GENERAL: Well appearing and in no acute distress. MENTAL: Mood is somewhat depressed with a flattened affect. Maintains good eye contact. Normal speech pattern. HEAD: Normocephalic, atraumatic. Normal cerebellar functioning. EYES: PERRLA. EOMI. NEURO: Cranial nerves 2 through 12 grossly intact. No focal neurological findings. EXTREMITIES: Normal upper and lower extremity movement and strength. GAIT: Normal. IMPRESSION / REPORT / PLAN 1) Daily headaches, likely multifactorial. 2) History of polysubstance abuse. 3) Anxiety and depression. PLAN: I do think there is a component of rebound headaches with this. I discouraged the use of ibuprofen on a daily basis. I recommend that he use NSAIDs twice weekly or less. We will go ahead and just discontinue the ibuprofen and try Naprosyn 500 mg twice daily. I also think he needs prophylaxis treatment for headaches. I would like to try Topamax 50 mg each evening and increase by 50 mg every 5-7 days as tolerated up to Topamax 50 mg 2 tablets twice daily. He has not yet gotten insurance coverage, although he is in the process of this. If the Topamax is too cost prohibited, we will then try propranolol starting at 40 mg daily and increasing by 40 mg as tolerated up to propranolol 80 mg twice daily. The usual risks, benefits, side effects and directions of these medications were discussed. For headache abortive agent along with the Naprosyn, he can try Imitrex 50 mg at onset of headache and may repeat in 1-2 hours as needed up to a maximum of Imitrex 200 mg per 24 hours. He has had associated nausea with headaches as well, and he was given Phenergan 25 mg 1 tablet every 6-8 hours as needed. I encouraged him to follow up with regards to his health insurance coverage. I also think that he needs to have a complete eye exam as he has not had this in some time and he is complaining of some decreased visual acuity. I will see him back in about 2-4 weeks. Symptoms to warrant more urgent evaluation were discussed. If headaches persist, may need to consider further evaluation and imaging such as MRI/MRA. I find no worrisome neurological findings on physical exam today. ADMINISTRATIVE BILLING Total Time: 30 minutes Counseling Time: 20+ minutes Jona Reynoso Electronically Signed By:BARRETT NIEVES On 10/02/2009 10:59 AM Source: [facility] MHSDOLBEYNONRADSYS Document Id: [id number] documented in this encounter Miscellaneous Notes Miscellaneous - Christal Landeros R.N. - 09/30/2009 10:25 AM CDT Adult Front End Java Developer Intake/History Adult Front End Java Developer Intake/History Entered On: 09/30/2009 10:27 CDT Performed On: 09/30/2009 10:25 CDT by CHRISTAL LANDEROS Intake Chief Complaint: Recheck medication Ambulatory Intake Additional Information: having ongoing headaches Temperature Oral: 36.6DegC(Converted to: 97.9DegF) Peripheral Pulse Rate: 72bpm Heart Rhythm: Regular Respiratory Rate: 16br/min Systolic Blood Pressure: 116mmHg Diastolic Blood Pressure: 68mmHg NIBP Mean: 84mmHg BP Location: Right upper extremity Actual Weight: 68.600kg(Converted to: 151.237lb) Dosing Weight Clinic: 68.60kg CHRISTAL LANDEROS - 09/30/2009 10:25 CDT Subjective Pain Symptoms: Yes CHRISTAL LANDEROS - 09/30/2009 10:25 CDT Pain Pain Assessment Grid Pain 1 Location: Head (Comment: headache [CHRISTAL LANDEROS - 09/30/2009 10:25 CDT] ) CHRISTAL LANDEROS - 09/30/2009 10:25 CDT Dependent Habits Tobacco Use/Currently Using: Yes Tobacco Use/Advised to Quit: Yes CHRISTAL LANDEROS - 09/30/2009 10:25 CDT Tobacco Use Grid Type: Cigarettes Other Tobacco Frequency: 4 cigarettes/daily CHRISTAL LANDEROS - 09/30/2009 10:25 CDT Allergies Allergies (Active) NKA Estimated Onset Date: Unspecified ; Created By: IMTIAZ CLARK; Reaction Status: Active ; Category: Drug ; Substance: NKA ; Type: Allergy ; Updated By: IMTIAZ CLARK; Reviewed Date: 09/16/2009 8:32 CDT Source: [facility] Point[employer]CHART Document Id: [id number] CDT!27 documented in this encounter Plan of Treatment Not on filedocumented as of this encounter Visit Diagnoses Not on filedocumented in this encounter Additional Health Concerns Assessment Noted Time PHQ-9 Depression Total Score: 11 09/16/2009 9:39 AM CD T documented as of this encounter
--- OUTSIDE RECORDS SUMMARY | 2022-02-10 14:46 | XMS_ITS | Encounter Summary ---
:1985 Author Organization [facility] Address [address] [place] [address] Care Team Providers Name Role Phone Unavailable Primary Care Provider Unavailable Encounter Details Date Type Department Care Team Description 11/02/2009 Hospital Encounter [facility]X [facility] FAMILY[facility] Prashanth Nieves P.A.-C. [address] [place] [address] (Wo rk) Social History Tobacco Use Types Packs/Day Years Used Date Smoking Tobacco: Never Assessed Sex Assigned at Date Recorded Male 10/17/2017 10:58 AM CDT documented as of this encounter Progress Notes Barrett Nieves P.A.-C., P.A. - 11/02/2009 12:00 AM CDT [id number] CHIEF COMPLAINT / REASON FOR VISIT Medication check and followup. HISTORY OF PRESENT ILLNESS Tarik comes in for followup and recheck. He has a history of polysubstance abuse and anxiety. He is residing at [facility]. He is seen by Antony Sykes M.S., L.P.C. at [facility] ([facility]) for evaluation and diagnosis of mental health conditions. He meets criteria for generalized anxiety and panic disorder with agoraphobia. He does have a diagnosis of bipolar disorder, but no clear criteria for this, but rather is felt to have attention deficit disorder and polysubstance abuse. He comes in today for followup and medication management. He previously had been tried on citalopram. He only took this for a few days and refuses it. He continues on Atarax 25 mg q.i.d. He previously had tried BuSpar, but he did not like this. I discussed with him, given his history of chemical dependency and substance abuse, I am reluctant to use habit-forming medications at this time. I do think he would benefit from further medications for anxiety and depression symptoms. He had been started on propranolol for migraine headaches. This has had a positive effect. He is taking propranolol 40 mg daily and has headaches on a rare occasion, which he uses naproxen for treatment. He complains of some chronic nasal congestion. He states he has had previous nasal surgery and has been suffering from chronic congestion since. He does have some itchy eyes, sneezing, and nasal congestion. The Atarax has been somewhat helpful with this. He does use some Kearny Thomas. He is interested in seeing ENT for this. He denies any sinus pain, pressure or headache. CURRENT MEDICATIONS Atarax 25 mg 4 times daily. Naprosyn 500 mg twice daily as needed. Omeprazole 20 mg daily. Propranolol 40 mg twice daily. Trazodone 50 mg nightly as needed. ALLERGIES No known drug allergies. VITALS SIGNS TEMP: 37.0 PULSE: 72 RESP RATE: 14 BLOOD PRESSURE: 108/58 WEIGHT: 73.6 kg PHYSICAL EXAM GENERAL: Appropriately groomed and dressed. Mood is depressed with a flattened affect. He does not appear overly anxious today. He maintains good eye contact. EYES: Normal conjunctivae and lids. ENT: Nares with congestion. No sinus tenderness. Oral mucosa is moist. Pharynx without erythema. IMPRESSION / REPORT / PLAN 1) Migraine headaches, controlled. Continue with propranolol 40 mg b.i.d. I did instruct him to increase it to 80 mg in the evening should he have ongoing headaches. Continue the use of naproxen on an as-needed basis. He should require use of this less than twice weekly. Follow up p.r.n. 2) Chronic nasal congestion. 3) Allergic rhinitis. Flonase nasal spray 2 sprays in each nostril once daily. Instructed on use and administration. He is on antihistamines. He can continue with his nasal saline. Smoking cessation encouraged. He will follow up with ENT, per his request. 4) Anxiety and depression. 5) Polysubstance abuse. 6) Possible attention deficit disorder (ADD). PLAN: Start Effexor XR 37.5 mg daily for 1 week and then increase up to 75 mg daily thereafter. I am reluctant to place him in Klonopin, Ativan or other habit-forming medication given his history of polysubstance abuse. In addition, I will refer him back to [facility] for further evaluation and medication management as indicated, as I do not follow adult ADD patients. He is agreeable to this. ADMINISTRATIVE BILLING Total Time: 30 minutes; counseling and discussion more than 20 minutes. Barrett Nieves P.A.-C srw Electronically Signed By:BARRETT NIEVES On 11/04/2009 03:19 PM Source: [facility] MHSDOLBEYNONRADSYS Document Id: [id number] documented in this encounter Miscellaneous Notes Miscellaneous - Christal Landeros R.N. - 11/02/2009 12:03 PM CDT PHQ-9 PHQ-9 Entered On: 11/02/2009 12:03 CDT Performed On: 11/02/2009 12:03 CDT by CHRISTAL LANDEROS PHQ-9 Little interest or pleasure in doing things: Several days Feeling down, depressed, or hopeless: Several days Trouble falling or staying asleep, or sleeping too much: Several days Feeling tired or having little energy: More than half the days Poor appetite or overeating: Not at all Feeling bad about yourself or that you are a failure: Several days Trouble concentrating on things: Several days Moving or speaking slowly; restless or fidgety: Several days Thoughts that you would be better off /hurting self: Not at all PHQ-9 Calculated Score: 8 PHQ-9 Date Completed: 11/02/2009 CDT Problems make work, home, or dealing with others: Somewhat difficult CHRISTAL LANDEROS - 11/02/2009 12:03 CDT Source: [facility] POWERCHART Document Id: [id number] CDT!14 Miscellaneous - Christal Landeros R.N. 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 Temperature Oral: 37.0DegC(Converted to: 98.6DegF) Peripheral Pulse Rate: 72bpm Respiratory Rate: 14br/min Systolic Blood Pressure: 108mmHg Diastolic Blood Pressure: 58mmHg NIBP Mean: 75mmHg BP Location: Right upper extremity Actual Weight: 73.600kg(Converted to: 162.260lb) Dosing Weight Clinic: 73.60kg CHRISTAL LANDEROS - 11/02/2009 8:57 CDT Subjective Pain Symptoms: No CHRISTAL LANDEROS - 11/02/2009 8:57 CDT Dependent Habits Tobacco Use/Currently Using: Yes Tobacco Use/Advised to Quit: Yes CHRISTAL LANDEROS - 11/02/2009 8:57 CDT Tobacco Use Grid Type: Cigarettes Other Tobacco Frequency: 4 cigarettes/daily CHRISTAL LANDEROS - 11/02/2009 8:57 CDT Allergies Allergies (Active) NKA Estimated Onset Date: Unspecified ; Created By: IMTIAZ CLARK; Reaction Status: Active ; Category: Drug ; Substance: NKA ; Type: Allergy ; Updated By: IMTIAZ CLARK; Reviewed Date: 09/30/2009 10:28 CDT Source: [facility] Samplesaint Document Id: [id number] CDT!21 documented in this encounter Plan of Treatment Not on filedocumented as of this encounter Visit Diagnoses Not on filedocumented in this encounter Additional Health Concerns Assessment Noted Time PHQ-9 Depression Total Score: 8 11/02/2009 12:03 PM CD T documented as of this encounter
--- OUTSIDE RECORDS SUMMARY | 2022-02-10 14:46 | XMS_ITS | Encounter Summary ---
:1985 Author Organization [facility] Address [address] [place] [address] Care Team Providers Name Role Phone Unavailable Primary Care Provider Unavailable Encounter Details Date Type Department Care Team Description 12/21/2009 Hospital Encounter HX [facility] MRI Mary, Emiliano EpsteinAMariama [address] [place] [address] (Wo rk) Social History Tobacco Use Types Packs/Day Years Used Date Smoking Tobacco: Never Assessed Sex Assigned at Date Recorded Male 10/17/2017 10:58 AM CDT documented as of this encounter Plan of Treatment Not on filedocumented as of this encounter Procedures Procedure Name Priority Date/Time Associated Diagnosis Comme nts DX ORBITS 4+ VIEWS Routine 12/21/2009 3:38 PM Res ults for this CDT procedure are i n the results section. MR BRAIN WITHOUT Routine 12/21/2009 2:43 PM Resul ts for this AND WITH IV CDT procedure are i n CONTRAST the results section. MR BRAIN ANGIOGRAM Routine 12/21/2009 2:30 PM Res ults for this WITHOUT IV CONTRAST CDT procedur e are in the results section. documented in this encounter Results DX Orbits 4+ Views (12/21/2009 3:38 PM CDT) Anatomical Region Laterality Modality Skull N/A Radiographic Imaging Specimen (Source) Anatomical Collection Method Collection Time Re ceived Time Location / / Volume Laterality 12/21/2009 3:38 PM CDT Addenda Addendum by Provider, Delvin Pathak 12/21/2009 3:38 PM CDT RAD^^^OW XR Orbits MRI Screening 12/21/2009 15:38:56 Narrative 12/21/2009 2:45 PM CDT Orbits. INDICATION Pre MRI screening. FINDINGS No radiopaque objects within the bilater al orbits. Abdiel Stein, ?? jws ?D: 1 M.D. ? THIS IS AN ELEC TRONICALLY VERIFIED REPORT 12/21/2009 2:45 PM: ??Abdiel Stein M.D. Procedure Note Abdiel Stein M.D. / Provider, Tamra mckeon M.D. - 07/28/2016 Orbits. INDICATION Pre MRI screening. FINDINGS No radiopaque objects within the bilater al orbits. kermit Schroeder T: 02:45 pm M.D. THIS IS AN ELECTRONICALLY VERIFIED REPORT 12/21/2009 2:45 PM: Cristina Schroeder Historical Provider IMG DIAGNOSTIC IMAGING PROCE [facility] MR Brain without and with IV Contrast (12/21/2009 2:43 PM CDT) Anatomical Region Laterality Modality Head, Brain N/A Magnetic Resonance Specimen (Source) Anatomical Collection Method Collection Time Re ceived Time Location / / Volume Laterality 12/21/2009 2:43 PM CDT Addenda Addendum by Provider, Delvin Pathak 12/21/2009 2:43 PM CDT RAD^^^OW MR Brain w ??wo contrast 12/21/2009 14:43:09 Narrative 12/21/2009 4:03 PM CDT INDICATION Chronic migraines , blurry vision, dizziness Technique: ??Brain MRI without and with IV 13 mL Omniscan contrast. ??Head MRA angiogram without contrast. Brain MRI: ??Normal ??diffusion without acute or subacute infarct. ??No inferior cerebellar tonsillar ectopia. ??Brain mo rphology and signal intensity are normal. ??Enhancement is normal. ??Right maxillary sinus contains 1.5 cm mucous retention cyst. ??This is in the alveola r recess. ??Imaged portions of orbits and mastoids are negative. Head MRA angiogram: No aneurysms. ??No m ajor vessel cutoff. ??Intact bilateral posterior communicating arteries and ant erior communicating arteries. Impression: 1. ? Right maxillary sinus mucous re tention cyst. 2.. ??Otherwise normal brain MRI and Hea d MRA angiogram. Antony Perdue M.D. [facility] ?D: ? THIS IS AN ELEC TRONICALLY VERIFIED REPORT 12/21/2009 4:03 PM: ??Caterina Knapp Procedure Note Antony Perdue M.D. / Provider, Delvin Pathak - 07/28/2016 INDICATION Chronic migraines , blurry vision, dizziness Technique: Brain MRI without and with IV 13 mL Omniscan contrast. Head MRA angiogram without contrast. Brain MRI: Normal diffusion without acut e or subacute infarct. No inferior cerebellar tonsillar ectopia. Brain morp hology and signal intensity are normal. Enhancement is normal. Right max illary sinus contains 1.5 cm mucous retention cyst. This is in the alveolar recess. Imaged portions of orbits and mastoids are negative. Head MRA angiogram: No aneurysms. No lamont or vessel cutoff. Intact bilateral posterior communicating arteries and ant erior communicating arteries. Impression: 1. Right maxillary sinus mucous retentio n cyst. 2.. Otherwise normal brain MRI and Head MRA angiogram. Antony Perdue M.D. [facility] T: 12/21/2009 04:03 pm THIS IS AN ELECTRONICALLY VERIFIED REPORT 12/21/2009 4:03 PM: Antony Perdue M.D. Mackenzie Tapia.T.(R)(CT), R.T.(R), R.T.(R)(MR) I MG MRI PROCEDURES MR Brain Angiogram without IV Contrast (12/21/2009 2:30 PM CDT) Anatomical Region Laterality Modality Head, Brain N/A Magnetic Resonance Specimen (Source) Anatomical Collection Method Collection Time Re ceived Time Location / / Volume Laterality 12/21/2009 2:30 PM CDT Addenda Addendum by ProviderLawson M.D. o ashu 12/21/2009 2:30 PM CDT RAD^^^OW MR Angio Brain wo contrast 12/21/2009 14:30:00 Narrative 12/21/2009 4:04 PM CDT INDICATION Migraines, blurry vision Findings: ??Normal head MR angiogram. ?? Please see brain MRI report for details. Antony Perdue M.D. dmp ?D: ? THIS IS AN ELEC TRONICALLY VERIFIED REPORT 12/21/2009 4:04 PM: ??Caterina Knapp Procedure Note Antony Perdue M.D. / ProviderLawson M.D. - 07/28/2016 INDICATION Migraines, blurry vision Findings: Normal head MR angiogram. Plea se see brain MRI report for details. Antony Perdue M.D. dmp T: 12/21/2009 04:04 pm THIS IS AN ELECTRONICALLY VERIFIED REPORT 12/21/2009 4:04 PM: Antony Perdue M.D. Mackenzie Majano R.T.(R)(CT), R.T.(R), R.T.(R)(MR) I MG MRI PROCEDURES documented in this encounter Visit Diagnoses Not on filedocumented in this encounter Additional Health Concerns Assessment Noted Time PHQ-9 Depression Total Score: 8 11/02/2009 12:03 PM CD T documented as of this encounter
--- OUTSIDE RECORDS SUMMARY | 2022-02-10 14:46 | XMS_ITS | Encounter Summary ---
:1985 Author Organization [facility] Address [address] [place] [address] Care Team Providers Name Role Phone Unavailable Primary Care Provider Unavailable Encounter Details Date Type Department Care Team Description 12/10/2009 Hospital Encounter HX [facility] INTERNMED Mejia Holloway, ZA, C.N.P. [address] [place] [id number] (Wo rk) Social History Tobacco Use Types Packs/Day Years Used Date Smoking Tobacco: Never Assessed Sex Assigned at Date Recorded Male 10/17/2017 10:58 AM CDT documented as of this encounter Progress Notes Mejia Holloway, ZA, C.N.P. - 12/10/2009 12:00 AM CDT [id number] CHIEF COMPLAINT / REASON FOR VISIT Reaction to medication. HISTORY OF PRESENT ILLNESS Mr. Adhikari, who is a patient of multiple providers here at the [facility], presents today for discussion of a possible medication reaction. Mr. Adhikari was placed recently on buprenorphine by a provider out of [facility] who comes down to the [facility]. He was placed on this medication to help him manage his history of polysubstance abuse. He comes to the clinic today stating that he was instructed to start this medication approximately 1 week ago. However, he did receive a phone call from the prescribing provider's office asking him how he was tolerating the new medication. He states that he did not actually start the new medication until he received this phone call and so he has now taken 2 doses prior to coming to the clinic today. He states this morning when he got up he was feeling lightheaded and dizzy, and states when that resolved he began to feel nauseous and vomited x2. He states that he has an upset stomach feeling but has not had any further episodes of vomiting and denies any episodes of diarrhea. He denies any overt abdominal pain. He is wondering if this is possibly related to his new medication. He denies any fevers, cough, chest pain, or shortness of breath. CURRENT MEDICATIONS Reviewed and no changes per EMR. ALLERGIES No known medication allergies. PAST MEDICAL / SURGICAL HISTORY 1) Migraine headache. 2) History of polysubstance abuse. VITAL SIGNS PULSE: 60 RESP RATE: 20 BLOOD PRESSURE: 100/58 WEIGHT: 74.4 kg PHYSICAL EXAM GENERAL: This is a well-developed male in no acute distress, alert and oriented x3. HEAD: Normocephalic, atraumatic. EYES: Pupils equal and reactive to light. ENT: TMs pearly powell bilaterally. Mouth mucosa pink and moist. No obvious lesions present. Pharynx without exudate. Neck is supple without lymphadenopathy. LUNGS: Clear to auscultation bilaterally. No rales or wheezes. HEART: Regular rate and rhythm. ABDOMEN: Soft, nontender, nondistended. Bowel sounds active. EXTREMITIES: Warm. Without edema. IMPRESSION / REPORT / PLAN 1) Nausea and vomiting. I did look up the side effects of this medication that he has started for his chemical dependency, because I am not overly familiar with its use, and in looking it up I see that it is a restricted medication for most prescribers. In reviewing the side effects list, certainly the side effects that he is experiencing could be related to the initiation of this new medication. Since he has only taken 2 doses, I did instruct him to hold the medication and to contact the prescribing provider for further evaluation and management. Certainly it could also be coincidence that he started this new medication and he has developed a viral gastroenteritis. I did discuss with him that he could develop some fevers, chills, vomiting, and diarrhea if this is the case. If it is a medication reaction, would expect his side effects to resolve with the discontinuation of the medication. He states that he will contact the prescribing providers' office and was instructed that if his symptoms continue to persist or worsen he should return for further evaluation. Mejia Holloway C.N.P. akg Electronically Signed By:MEJIA HOLLOWAY MID WIFE On 12/14/2009 09:16 AM Source: [facility] MHSDOLBEYNONRADSYS Document Id: [id number] documented in this encounter Miscellaneous Notes Miscellaneous - Stephanie Martin - 12/10/2009 8:15 AM CDT Adult Med Admin Intake/History Adult Med Admin Intake/History Entered On: 12/10/2009 8:19 CDT Performed On: 12/10/2009 8:15 CDT by STEPHANIE MARTIN Intake Chief Complaint: Reaction to Medication Ambulatory Intake Additional Information: Thinks he passed out this morning, very nauseated and light headed Peripheral Pulse Rate: 60/min Respiratory Rate: 12/min (LOW) Systolic Blood Pressure: 100mmHg Diastolic Blood Pressure: 58mmHg NIBP Mean: 72mmHg BP Location: Right upper extremity Oxygen Therapy: T-Piece Actual Weight: 74.400kg(Converted to: 164lb 0oz) Dosing Weight Clinic: 74.40kg STEPHANIE MARTIN - 12/10/2009 8:15 CDT Subjective Pain Symptoms: No STEPHANIE MARTIN - 12/10/2009 8:15 CDT Dependent Habits Tobacco Use/Currently Using: Yes STEPHANIE MARTIN - 12/10/2009 8:15 CDT Tobacco Use Grid Type: Cigarettes Other Tobacco Frequency: 4 cigarettes/daily STEPHANIE MARTIN - 12/10/2009 8:15 CDT Allergies Allergies (Active) NKA Estimated Onset Date: Unspecified ; Created By: IMTIAZ CLARK; Reaction Status: Active ; Category: Drug ; Substance: NKA ; Type: Allergy ; Updated By: IMTIAZ CLARK; Reviewed Date: 12/10/2009 8:14 CDT Source: [facility] POWERCHART Document Id: [id number] CDT!21 documented in this encounter Plan of Treatment Not on filedocumented as of this encounter Visit Diagnoses Not on filedocumented in this encounter Additional Health Concerns Assessment Noted Time PHQ-9 Depression Total Score: 8 11/02/2009 12:03 PM CD T documented as of this encounter
--- OUTSIDE RECORDS SUMMARY | 2022-02-10 14:46 | XMS_ITS | Encounter Summary ---
:1985 Author Organization [facility] Address [address] [place] [id number] Care Team Providers Name Role Phone Unavailable Primary Care Provider Unavailable Encounter Details Date Type Department Care Team Description 09/06/2007 - Hospital Encounter HX NO MAPPING Wade Pastrana, 09/13/2008 Delvin Social History Tobacco Use Types Packs/Day Years Used Date Smoking Tobacco: Never Assessed Sex Assigned at Date Recorded Male 10/17/2017 10:58 AM CDT documented as of this encounter Plan of Treatment Not on filedocumented as of this encounter Visit Diagnoses Not on filedocumented in this encounter
--- OUTSIDE RECORDS SUMMARY | 2022-02-10 14:46 | XMS_ITS | Encounter Summary ---
:1985 Author Organization [facility] Address [address] [place] [address] Care Team Providers Name Role Phone Unavailable Primary Care Provider Unavailable Encounter Details Date Type Department Care Team Description 09/11/2009 Hospital Encounter HX [facility] URGENTCAR Garrett Neves L, D.O. Social History Tobacco Use Types Packs/Day Years Used Date Smoking Tobacco: Never Assessed Sex Assigned at Date Recorded Male 10/17/2017 10:58 AM CDT documented as of this encounter Progress Notes Prateek Alexander, P.Jerry. - 09/11/2009 12:00 AM CDT [id number] CHIEF COMPLAINT / REASON FOR VISIT Has not been feeling well for 6 months. 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 He apparently has had ongoing fatigue and just not feeling well at all. At times he feels nauseated, but denies actual burning. He states he has a history of irritable bowel syndrome (IBS). Prior to his incarceration, he was also under treatment for anxiety and his medication was discontinued, so he wonders if that is related. The patient denies that his symptoms have changed in a significant way in the last 5-10 days. He denies a history of similar problems. He denies problems with anemia, but he thinks he might have had a blood test at some point that said his thyroid was abnormal. CURRENT MEDICATIONS None. ALLERGIES None. VITAL SIGNS Stable. PHYSICAL EXAM GENERAL: He is afebrile and does not appear ill. SKIN: Warm and dry with normal turgor and texture. Free of lesions. Hair with normal distribution and texture. EYES: PERRLA. Conjunctivae are pink. ENT: All clear. Oral mucosa is moist. Neck is supple without adenopathy. LUNGS: Clear to auscultation. HEART: Regular rate and rhythm without murmur. ABDOMEN: Soft and nontender. IMPRESSION / REPORT / PLAN 1) Subjective fatigue. The patient was advised that he needs a thorough workup, which is not available in the Urgent Care setting. I educated the patient that we need to have him see a primary care provider. He needs to get established so that he can have continued continuity of care. He was given a card and escorted to the scheduling desk to make that appointment. Jona Mccormick Electronically Signed By:PRATEEK DE ANDA On 09/15/2009 11:48 AM Source: 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 Also recent sunburn. Not much of an appetite. Temperature Oral: 36.7DegC(Converted to: 98.1DegF) Peripheral Pulse Rate: 68bpm Respiratory Rate: 16br/min Systolic Blood Pressure: 95mmHg Diastolic Blood Pressure: 63mmHg NIBP Mean: 74mmHg BP Location: Right upper extremity Actual Weight: 70.000kg(Converted to: 154.324lb) Dosing Weight Clinic: 70.00kg IMTIAZ CLARK - 09/11/2009 11:50 CDT Subjective Pain Symptoms: Yes IMTIAZ CLARK - 09/11/2009 11:50 CDT Dependent Habits Tobacco Use/Currently Using: Yes IMTIAZ CLARK - 09/11/2009 11:50 CDT Allergies Allergies (Active) NKA Estimated Onset Date: Unspecified ; Created By: IMTIAZ CLARK; Reaction Status: Active ; Category: Drug ; Substance: NKA ; Type: Allergy ; Updated By: IMTIAZ CLARK; Reviewed Date: 09/11/2009 11:49 CDT Source: [facility] [employer] Document Id: [id number] CDT!18 documented in this encounter Plan of Treatment Not on filedocumented as of this encounter Visit Diagnoses Not on filedocumented in this encounter
--- OUTSIDE RECORDS SUMMARY | 2022-02-10 14:46 | XMS_ITS | Encounter Summary ---
:1985 Author Organization [facility] Address [address] [place] [address] Care Team Providers Name Role Phone Unavailable Primary Care Provider Unavailable Encounter Details Date Type Department Care Team Description 09/16/2009 Hospital Encounter HX [facility] Prashanth Nieves P.A.-C. [address] [place] [address] (Wo rk) Social History Tobacco Use Types Packs/Day Years Used Date Smoking Tobacco: Never Assessed Sex Assigned at Date Recorded Male 10/17/2017 10:58 AM CDT documented as of this encounter Progress Notes Barrett Nieves P.A.-C., P.A. - 09/16/2009 12:00 AM CDT [id number] CHIEF COMPLAINT / REASON FOR VISIT Not feeling well, medications. HISTORY OF PRESENT ILLNESS Patient is a 23-year-old new to the [facility]. He was seen in Urgent Care last week for not feeling well and was scheduled for an appointment to establish care. He is currently residing at [facility] and will be there for the next 6 months. He has a history of polysubstance abuse. Drug of choice being heroin. He has been chemical free for the past 2 years. He had been incarcerated for the past 20 months and was released now to a [facility] here at [place]. He reports a history of anxiety and depression and possible bipolar disorder, although, he is unclear of his actual mental health diagnosis. He has been off all medication for the past 6 months. He reports previously having been on lithium, Inderal, Zoloft, BuSpar, Seroquel and Depakote. He is complaining mainly of the anxiety symptoms. He is interested in restarting medication. He does have a strong family history of metal health diagnosis on maternal side with mom, brother, half-brother and half-sister all with anxiety and depression. He is unclear if there is any further mental health diagnoses such as schizophrenia, bipolar disorder or other mental health problems in his family. He does not sleep well. Has difficulty initiating sleep. States that his mind seems to keep going and going. He will have awakenings during the night, feelings of anxiety with chest heaviness, feeling edgy, irritable. He has not yet been set up for case management or been seen at [facility]. He is open to this and did complete a release of information form, which was faxed to [facility]. He has had some nausea. Appetite has decreased. He reports irritable bowel-type symptoms. States that he has always had a nervous stomach and been told that he has irritable bowel, although, he has not had endoscopy, colonoscopy. He denies weight loss. No current diarrhea. No blood in the stool. No vomiting or hematemesis. CURRENT MEDICATIONS None. ALLERGIES No known drug allergies. PAST MEDICAL / SURGICAL HISTORY 1) Anxiety and depression with possible bipolar disorder. 2) OCD tendencies per patient report. 3) History of nasal fracture. 4) History of hand fracture. 5) Tonsillectomy. 6) Orchiopexy as a child. 7) Polysubstance abuse, currently substance free other than tobacco. SOCIAL HISTORY He is single. He is from the [facility]. He was convicted of possession of illicit drugs and of selling heroin. He was incarcerated for 20 months and is now residing at [facility] for next 6 months. His family and friends still live in the [place] area. He does admit some concerns about relapse and contact with friends who are still using. He is currently unemployed. He does smoke about 1/4 pack per day, but notes that this tends to increase his anxiety symptoms. FAMILY HISTORY Notable for depression and anxiety on maternal side as noted above. Otherwise, family history unremarkable. VITAL SIGNS Recorded and documented per EMR. PHYSICAL EXAM GENERAL: Well-nourished male in no acute distress. He does appear a bit anxious. Mood is depressed with a flattened affect. Maintains good eye contact. Speech is somewhat monotone. SKIN: No rashes. EYES: Normal conjunctivae and lids. ENT: TMs are clear. Pharynx is clear without erythema. Dentition in good repair. Oral mucosa moist. Neck is supple without adenopathy. HEART: Regular rate and rhythm. Normal S1 and S2. No murmur. LUNGS: Clear throughout without wheezes, rubs, or crackles. Normal respiratory rate and effort. ABDOMEN: Soft. Normoactive bowel sounds. EXTREMITIES: Without edema. MENTAL: PHQ-9 was 11. IMPRESSION/REPORT/PLAN 1) Polysubstance abuse. 2) Anxiety and depression with possible bipolar disorder and OCD tendencies. 3) Generalized malaise and fatigue. PLAN: We will obtain baseline laboratories including a CBC, comprehensive panel, TSH and a urinalysis. He will be notified of results. We will start citalopram 20 mg daily. He is aware that it may take a few weeks for maximum affect to be noted. For sleep he was given trazodone 50 mg 1 tablet every night as needed. He is concerned about the anxiety issues, and I explained to him that I would prefer to avoid habit forming medications; specifically the benzodiazepine at this time, until we have been able to get him established with a mental health provider and undergo further evaluation for diagnosis. We will try hydroxyzine 25 mg 4 times a day as needed for the anxiety. He is aware of the sedating affect of this. Also, we will start omeprazole 20 mg each morning 30 to 60 minutes before meal. He has signed a release of information form, which was faxed to [facility] and a referral was made. Appointment scheduled for October 05. I do think he will require ongoing mental health care counseling and was referred for case management. He has completed necessary paperwork with social science manager to establish medical assistance. I will see him back in 1 month. Symptoms to warrant more urgent evaluation discussed. ADMINISTRATIVE BILLING Total Time: More than 30 minutes spent in discussion, counseling and coordinating care. Jona Reynoso Electronically Signed By:BARRETT NIEVES On 09/21/2009 08:08 AM Source: [facility] MHSDOLBEYNONRADSYS Document Id: [id number] documented in this encounter Miscellaneous Notes Miscellaneous - Barrett Nieves P.A.-Glenn, P.A. - 09/16/2009 5:46 PM CDT Reminder Msg Document Contains Addenda Addendum by CHRISTAL LANDEROS on 16 September 2009 17:56:06 CDT Notified of results by mail. From: BARRETT NIEVES To: CHRISTAL LANDEROS Sent: 09/16/2009 17:46:21 CDT ! Show up: 09/16/2009 17:45:00 CDT Subject: Reminder Msg Actions: Notify patient of results Due Date/Time: 09/16/2009 17:45:00 CDT Source: [facility] POWERCHART Document Id: [id number] Electronically signed by Herrera [facility] Mechanical Developer [employer] [id number] at 08/08/2016 3:08 AM CDT Miscellaneous - Christal Landeros, R.N. - 09/16/2009 9:39 AM CDT PHQ-9 PHQ-9 Entered On: 09/16/2009 9:40 CDT Performed On: 09/16/2009 9:39 CDT by CHRISTAL LANDEROS PHQ-9 Little interest or pleasure in doing things: Several days Feeling down, depressed, or hopeless: Several days Trouble falling or staying asleep, or sleeping too much: Several days Feeling tired or having little energy: More than half the days Poor appetite or overeating: Several days Feeling bad about yourself or that you are a failure: Several days Trouble concentrating on things: More than half the days Moving or speaking slowly; restless or fidgety: More than half the days Thoughts that you would be better off /hurting self: Not at all PHQ-9 Calculated Score: 11 PHQ-9 Date Completed: 09/16/2009 CDT Problems make work, home, or dealing with others: Very difficult CHRISTAL LANDEROS - 09/16/2009 9:39 CDT Source: [employer] Document Id: [id number] CDT!14 Miscellaneous - Christal Landeros RYomi - 09/16/2009 8:28 AM CDT Adult Permit Specialist Intake/History Adult Permit Specialist Intake/History Entered On: 09/16/2009 8:31 CDT Performed On: 09/16/2009 8:28 CDT by CHRISTAL LANDEROS Intake Chief Complaint: Feeling run down - would like blood work done Onset of Symptoms: 3-4months Ambulatory Intake Additional Information: having nausea Temperature Oral: 36.6DegC(Converted to: 97.9DegF) Peripheral Pulse Rate: 68bpm Respiratory Rate: 18br/min Systolic Blood Pressure: 118mmHg Diastolic Blood Pressure: 68mmHg NIBP Mean: 85mmHg BP Location: Right upper extremity Actual Weight: 70.500kg(Converted to: 155.426lb) Dosing Weight Clinic: 70.50kg CHRISTAL LANDEROS - 09/16/2009 8:28 CDT Subjective Pain Symptoms: No CHRISTAL LANDEROS - 09/16/2009 8:28 CDT Dependent Habits Tobacco Use/Currently Using: Yes Tobacco Use/Advised to Quit: Yes CHRISTAL LANDEROS - 09/16/2009 8:28 CDT Tobacco Use Grid Type: Cigarettes Other Tobacco Frequency: 4 cigarettes/daily CHRISTAL LANDEROS - 09/16/2009 8:28 CDT Allergies Allergies (Active) NKA Estimated Onset Date: Unspecified ; Created By: IMTIAZ CLARK; Reaction Status: Active ; Category: Drug ; Substance: NKA ; Type: Allergy ; Updated By: IMTIAZ CLARK; Reviewed Date: 09/11/2009 11:49 CDT [facility] Document Id: [id number] CDT!23 documented in this encounter Plan of Treatment Not on filedocumented as of this encounter Visit Diagnoses Not on filedocumented in this encounter Additional Health Concerns Assessment Noted Time PHQ-9 Depression Total Score: 11 09/16/2009 9:39 AM CD T documented as of this encounter
--- OUTSIDE RECORDS SUMMARY | 2022-02-10 14:46 | XMS_ITS | Encounter Summary ---
:1985 Author Organization [facility] Address [address] [place] [address] Care Team Providers Name Role Phone Unavailable Primary Care Provider Unavailable Encounter Details Date Type Department Care Team Description 12/16/2009 Hospital Encounter HX [facility] Prashanth Nieves P.A.-C. [address] [place] [address] (Wo rk) Social History Tobacco Use Types Packs/Day Years Used Date Smoking Tobacco: Never Assessed Sex Assigned at Date Recorded Male 10/17/2017 10:58 AM CDT documented as of this encounter Progress Notes Barrett Nieves P.A.-C., P.A. - 12/16/2009 12:00 AM CDT [id number] CHIEF COMPLAINT / REASON FOR VISIT Discuss headaches. HISTORY OF PRESENT ILLNESS Patient is a 23-year-old who is scheduled for an annual physical; however, this is actually an appointment simply to discuss his medications and management of his headaches. He is a 23-year-old with a history of polysubstance abuse, significant anxiety and panic disorder with agoraphobia. He has been started on a multitude of antidepressants/antianxiety medications but either will take them for a couple doses or not fill the medication at all and states that he is not tolerating it. He is currently using Atarax 25 mg four times a day for anxiety and irritability. He has used Klonopin in the past and is requesting to refill this. I have discussed with him in the past the need to establish with a mental health provider or Psychiatry for ongoing medication management. He has been followed by Antony Sykes M.S., L.P.C. at [facility] for case management but has not yet established care. He is having increasing headaches. These initially had been well controlled after initiating propanolol. He is currently taking 40 mg in the morning and 80 mg in the evening; however, the past few weeks he has had increased headaches to a near daily basis, feeling of some blurry vision and tingling in his brain. He does report a history of concussion and minor closed head injury. He denies ever having had imaging such as MRI or CT of the head done. He is inquiring about this. He has a headache at least 3 or more days per week. Imitrex has been helpful. He uses this maybe four to five times a month. CURRENT MEDICATIONS Atarax 25 mg four times a day as needed. Flonase daily. Imitrex 50 mg as needed migraine. Naprosyn 500 mg twice a day as needed. Propanolol 40 mg two tablets, one tablet in the morning, two tablets at night. ALLERGIES No known drug allergies. SOCIAL HISTORY He is now out of the [facility]. He smokes about a pack per day. 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 PAST MEDICAL / SURGICAL HISTORY 1) Substance abuse. 2) Anxiety and depression. SYSTEMS REVIEW As noted on CVI and PFH forms. Please see copies for further details. VITAL SIGNS TEMP: 36.8 degreesC PULSE: 68 RESP RATE: 14/min BLOOD PRESSURE: 98/60 WEIGHT: 72.3 kg PHYSICAL EXAM GENERAL: In no acute distress. He is appropriately groomed and dressed. Mood is depressed with somewhat flattened affect. Does not appear overly anxious. Maintains good eye contact. Normal thought process and speech pattern. HEAD: Normocephalic and atraumatic. EYES: PERRLA. EOMs intact. NEURO: Cranial nerves 2-12 grossly intact. Normal gait and cerebellar function. IMPRESSION / REPORT / PLAN 1) Polysubstance abuse with anxiety disorder. Plan: I had a jeannette talk with Alejandra regarding medications. I am very reluctant to prescribe him potentially habit-forming medications given his significant history of polysubstance abuse. I request that he establish care with a mental health provider for further medication management and adjustment. I ultimately did agree to give him Klonopin 0.5 mg tablets, one tablet twice a day as needed, #30, no refill. I will not provide any refills of this. He needs to be working with his shoe caser to establish ongoing mental health care. 2) Increase in headaches. Plan: We will schedule him for an MRI/MRA to further evaluate. He is claustrophobic but does have the Klonopin above to take prior to the procedure. He will need someone to transport him to and from the procedure taking this. In the meantime, we will increase his propanolol to 80 mg twice a day for 1 to 2 weeks and then can increase to 80 mg in the morning and 20 mg in the evening. He is in agreement with the above plan. ADMINISTRATIVE BILLING Total Time: More than 40 minutes Counseling Time: Counseling, discussion, coordinating care greater than 30 minutes Barrett Nieves P.A.-C bft Electronically Signed By:BARRETT NIEVES On 12/21/2009 08:13 AM Source: [facility] MHSDOLBEYNONRADSYS Document Id: [id number] documented in this encounter Miscellaneous Notes Miscellaneous - Barrett Nieves P.A.-C., P.A. - 12/16/2009 8:21 PM CDT Ambulatory Patient Summary [facility] [address] [place] [id number] Visit Information Name: ALEJANDRA ADHIKARI Current Date: 12/16/2009 20:21:58 Primary Care Provider: BARRETT NIEVES Your Medications Here is a list of your medications. It is important to take your medications as directed. Use a pillbox or chart to help remind you to take your medications. Please let your doctor or nurse know if you have problems taking your medications. Medication/Strength Dose Route Frequency Indications/Special Instructions/Comments propranolol (propranolol 40 mg oral tablet) 80 [...] headache repeat after one hour if needed sulfamethoxazole-trimethoprim (Bactrim DS) Bactrim DS Oral once a day tretinoin topical (tretinoin topical 0.025% cream) 1 sadia Topical once a day (at bedtime) hydrOXYzine (Atarax 25 mg oral tablet) 1 tab Oral four times a day as needed for Anxiety fluticasone nasal (Flonase 0.05 mg/inh nasal spray) 2 spray(s) Nostrils(Both) once a day naproxen (Naprosyn 500 mg oral tablet) 500 mg Oral two times a day with meals Your Allergies & Intolerances Substance Reaction Symptoms Category Comments NKA Drug Your Problem List Problem Status Onset Comments Polysubstance dependence, unspecified Active Headache, migraine NOS Active Your Recommendations We want to make [...] Lipid Panel every 5 years Age 20-75 12/16/2009 Checks blood for good (HDL) and bad (LDL) cholesterol. Know your numbers, they are one indicator of your risk for heart attack and stroke. Vaccine: Tetanus every 10 years 12/16/2009 Immunization to help prevent you from getting the seriousdisease Tetanus (Lockjaw). Your Upcoming Appointments Date Time Location Reason Provider 12/21/2009 14:30 [facility] MRI chronic migraines 01/29/2010 14:00 [facility] Derm [facility] Your Goals/Additional instructions: Source: [facility] POWERCHART Document Id: [id number] Electronically signed by Conversion, [facility] Director Of Vendor Management [id number] at 08/08/2016 12:21 AM CDT Miscellaneous - Barrett Nieves P.A.-C., P.A. - 12/16/2009 8:21 PM CDT Ambulatory Depart Summary [address] [address] Visit Information Name: ALEJANDRA ADHIKARI Current Date: 12/16/2009 20:21:57 Primary Care Provider: BARRETT NIEVES ALEJANDRA ADHIKARI has been given the following list of medications: Your Medications It is important to take your medications as directed. Use a pill box or chart to help remind you to take your medications. Please let your doctor or nurse know if you have problems taking your medications. Medication/Strength Dose Route Frequency Indications/Special Instructions/Comments propranolol (propranolol 40 mg oral tablet) 80 [...] headache repeat after one hour if needed sulfamethoxazole-trimethoprim (Bactrim DS) Bactrim DS Oral once a day tretinoin topical (tretinoin topical 0.025% cream) 1 sadia Topical once a day (at bedtime) hydrOXYzine (Atarax 25 mg oral tablet) 1 tab Oral four times a day as needed for Anxiety fluticasone nasal (Flonase 0.05 mg/inh nasal spray) 2 spray(s) Nostrils(Both) once a day naproxen (Naprosyn 500 mg oral tablet) 500 mg Oral two times a day with meals Additional Information: Yes - Current list of reconciled medications is provided and explained to the patient and/or family, guardian/caregiver. Source: [facility] POWERCHART Document Id: [id number] Electronically signed by Herrera [facility] Director Of Vendor Management [id number] at 08/08/2016 12:21 AM CDT Miscellaneous - Christal Landeros, R.N. - 12/16/2009 3:29 PM CDT Pediatric Subcontract Administrator Intake/History Pediatric Subcontract Administrator Intake/History Entered On: 12/16/2009 15:31 CDT Performed On: 12/16/2009 15:29 CDT by CHRISTAL LANDEROS Intake Ambulatory Intake Additional Information: Discss migraines CHRISTAL LANDEROS - 12/16/2009 15:32 CDT Height: 162.00cm(Converted to: 5ft 4in, 63.78in) Actual Weight: 72.300kg(Converted to: 159lb 6oz) Dosing Weight Clinic: 72.30kg Clinic BSA: 1.80 Body Mass Index: 28kg/m2 CHRISTAL LANDEROS - 12/16/2009 15:31 CDT Chief Complaint: Annual physical Temperature Oral: 36.8C(Converted to: 98.2DegF) Peripheral Pulse Rate: 68/min Respiratory Rate: 14/min Systolic Blood Pressure: 98mmHg Diastolic Blood Pressure: 60mmHg NIBP Mean: 73mmHg BP Location: Right upper extremity CHRISTAL LANDEROS - 12/16/2009 15:29 CDT Subjective Pain Symptoms: Yes CHRISTAL LANDEROS - 12/16/2009 15:29 CDT Pain Pain Assessment Grid Pain 1 Location: Epigastric (Comment: ongoing stomach pains. i always get it. [CHRISTAL LANDEROS - 12/16/2009 15:29 CDT] ) CHRISTAL LANDEROS - 12/16/2009 15:29 CDT Dependent Habits Tobacco Use/Currently Using: Yes Tobacco Use/Advised to Quit: Yes CHRISTAL LANDEROS - 12/16/2009 15:29 CDT Tobacco Use Grid Type: Cigarettes Cigarette Use Packs/Day: 1.0 CHRISTAL LANDEROS - 12/16/2009 15:29 CDT Allergy Allergies (Active) NKA Estimated Onset Date: Unspecified ; Created By: IMTIAZ CLARK; Reaction Status: Active ; Category: Drug ; Substance: NKA ; Type: Allergy ; Updated By: IMTIAZ CLARK; Reviewed Date: 12/16/2009 15:24 CDT [facility] Document Id: [id number] CDT!3 documented in this encounter Plan of Treatment Not on filedocumented as of this encounter Visit Diagnoses Not on filedocumented in this encounter Additional Health Concerns Assessment Noted Time PHQ-9 Depression Total Score: 8 11/02/2009 12:03 PM CD T documented as of this encounter
--- OUTSIDE RECORDS SUMMARY | 2022-02-10 14:46 | XMS_ITS | Encounter Summary ---
:1985 Author Organization [facility] Address [address] [place] [id number] Care Team Providers Name Role Phone Unavailable Primary Care Provider Unavailable Encounter Details Date Type Department Care Team Description 11/27/2009 Hospital Encounter HX [facility] Servando Quiles M.D. [facility], [place], [place] [address] (Wo rk) Social History Tobacco Use Types Packs/Day Years Used Date Smoking Tobacco: Never Assessed Sex Assigned at Date Recorded Male 10/17/2017 10:58 AM CDT documented as of this encounter Progress Notes Chriss Quiles M.D. - 11/27/2009 12:00 AM CDT [id number] HISTORY OF PRESENT ILLNESS This 23-year-old man comes in because of acne that he has had for 10 years. About 6 years ago, he saw a family practitioner and was treated with minocycline 50 mg to 100 mg daily, which he said dried out his skin. He also had been on tetracycline. Although he first said that he did not use any topical medications, he later in the visit remembered that he used Differin. CURRENT MEDICATIONS Flonase spray. Hydroxyzine for anxiety. Effexor. Propranolol. Naproxen (EMR reviewed, and there is some disconnect between that and what he wrote down). SYSTEMS REVIEW OTHER CURRENT SKIN PROBLEMS: Eczema. PAST MEDICAL / SURGICAL HISTORY 1) Irritable bowel. 2) Anxiety. 3) I believe he has a history of substance abuse. 4) Headaches. PAST SKIN DISEASE: Same as above. SOCIAL HISTORY HABITS: He smokes. He does not drink alcohol. HOBBIES: He likes lifting weights, biking. OCCUPATION: He is not working. FAMILY HISTORY Positive for eczema. His brother and father both were treated with isotretinoin, and he states that he is interested in that but, as mentioned, he does not like dryness caused by the previous medications he had been on. PHYSICAL EXAM GENERAL: Applicable vital signs as per intake sheet. Well-developed, well-nourished, oriented, and with a normal affect. SKIN: The face, neck, back, chest, arms, hands, and abdomen were examined. A few small papules on the back. More significantly, there are closed comedones on the upper face and closed comedones, excoriations, and erythematous papules on the lower face. IMPRESSION / REPORT / PLAN 1) Acne. 2) Anxiety. 3) Chemical dependency. 4) Concern regarding dryness from acne treatment. PLAN: 1) Avoid excoriation. 2) Bactrim DS 1 daily. 3) CBC with differential today. 4) Usual precautions. 5) Retin-A cream 0.025% every other night. 6) Cetaphil for cleansing. 7) Expectations discussed. I told him that I felt that isotretinoin would be contraindicated for him. Informed consent. All questions were answered. Chriss Quiles M.D. pas Electronically Signed By:CHRISS QUILES On 12/02/2009 12:53 PM Source: [facility] [id number] Document Id: [id number] documented in this encounter Miscellaneous Notes Miscellaneous - Chriss Quiles M.D. - 11/27/2009 11:57 AM CDT Reminder Msg Document Contains Addenda Addendum by NATHALIE LEARY on 27 November 2009 12:33:36 CDT Pt aware of lab results. To begin rx as prescribed. To follow up in 3 months. From: CHRISS QUILES To: NATHALIE LEARY Sent: 11/27/2009 11:57:49 CDT ! Show up: 11/27/2009 11:56:00 CDT Subject: Reminder Msg Actions: Notify patient of results Due Date/Time: 11/27/2009 11:56:00 CDT Source: [facility] Document Id: [id number] Electronically signed by [facility] Tender [id number] at 08/08/2016 1:05 AM CDT Miscellaneous - Catalina Rose, L.P.N. - 11/27/2009 9:14 AM CDT Adult [employer] Worker Intake/History Adult [employer] Worker Intake/History Entered On: 11/27/2009 9:15 CDT Performed On: 11/27/2009 9:14 CDT by CATALINA ROSE Intake Chief Complaint: Acn (face, back, chest) Systolic Blood Pressure: 98mmHg Diastolic Blood Pressure: 50mmHg (LOW) NIBP Mean: 66mmHg BP Location: Right upper extremity CATALINA ROSE - 11/27/2009 9:14 CDT Subjective Pain Symptoms: No CATALINA ROSE - 11/27/2009 9:14 CDT Dependent Habits Tobacco Use/Currently Using: Yes CATALINA ROSE - 11/27/2009 9:14 CDT Tobacco Use Grid Type: Cigarettes Other Tobacco Frequency: 4 cigarettes/daily CATALINA ROSE - 11/27/2009 9:14 CDT Allergies Allergies (Active) NKA Estimated Onset Date: Unspecified ; Created By: IMTIAZ CLARK; Reaction Status: Active ; Category: Drug ; Substance: NKA ; Type: Allergy ; Updated By: IMTIAZ CLARK; Reviewed Date: 11/02/2009 9:00 CDT Source: [facility] Document Id: [id number] documented in this encounter Plan of Treatment Not on filedocumented as of this encounter Visit Diagnoses Not on filedocumented in this encounter Additional Health Concerns Assessment Noted Time PHQ-9 Depression Total Score: 8 11/02/2009 12:03 PM CD T documented as of this encounter
--- OUTSIDE RECORDS SUMMARY | 2022-02-10 14:47 | XMS_ITS ---
:1985 Author Care Team Providers Name Role Phone DR. ARBEN CM MD Primary Care Provider [phone] DR. KATH ALVAREZ Referring Provider [phone] Allergies Code Code System Name Reaction Severity Status Onset NKDA ? Medications Name Status Start Date Stop Date ? ? amoxicillin 875 mg-potassium clavulanate 125 mg tablet Completed ? 08/28/2019 betamethasone, augmented 0.05 % topical ointment Completed ? 08/28/2019 cephalexin 500 mg capsule Completed ? 2019 clonazepam 1 mg tablet Active ? Not avail able clonazepam 2 mg tablet Active ? Not avail able cyclobenzaprine 10 mg tablet Completed ? dextroamphetamine-amphetamine ER 30 mg 24hr capsule,extend relea se Active ? Not available TAKE ONE CAPSULE DAILY IN THE MORNING doxepin 10 mg capsule Active ? Not availa ble famotidine 20 mg tablet Active ? Not avai lable famotidine 40 mg tablet Completed ? 08/28/19 fluocinolone acetonide oil 0.01 % ear drops Completed ? 08/28/2019 fluticasone propionate 50 mcg/actuation nasal Active ? Not available spray,suspension hydrocortisone 2.5 % topical cream Completed ? 10/15/2019 hyoscyamine 0.125 mg sublingual tablet Completed ? 08/28/2019 ketoconazole 2 % shampoo Active ? Not yadira ilable ketorolac 10 mg tablet Active ? Not avail able metronidazole 0.75 % topical cream Completed ? 08/28/2019 minocycline 50 mg capsule Completed ? 2019 naproxen 500 mg tablet Completed ? 0 nortriptyline 10 mg capsule Completed ? 10/04 omeprazole 20 mg capsule,delayed release Completed ? 10/15/2019 ondansetron HCl 4 mg tablet Active ? Not available TAKE ONE TABLET BY MOUTH EVERY 6 HOURS NEEDED pantoprazole 40 mg tablet,delayed release Active ? Not available TAKE 1 TABLET BY MOUTH ONCE DAILY. quetiapine 25 mg tablet Completed ? 08/28/19 20 sertraline 50 mg tablet Completed ? 08/28/19 20 topiramate 25 mg tablet Completed ? 10/15/19 20 Problems Name Status Onset Date Source ? 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 Neck Pain Active 10/16/2019 ? Myofascial Pain Active 10/16/2019 ? Arthralgia of Temporomandibular Joint Active 10/16/2019 ? Procedures Date Name Performed by ? ? Tonsillectomy Information not avai lable ? Procedure on Nose Information not avai lable ? Procedure on Nose Information not avai lable ? Extraction of [place] Tooth Information n ot available Results Lab Results Date Name Specimen Result Interpretation Description Value Range Status Address ? ? Behavioral ? No observation ? ? ? [place]: [address] [place] [address], [place] ? Oral Appliance ? Type of mandibular ? ? [place]: [address]* Appliance stabilization [address] [employer] appliance [place] [address] , [place] Past Encounters None recorded. Social History Tobacco Smoking Status Former Smoker Vaccine List Notes: no to the flu shot jr 08/28/2019 Plan of Care Reminders Provider Appointments None recorded. ? ? Lab None recorded. ? ? Referral None recorded. ? ? Procedures None recorded. ? ? Surgeries None recorded. ? ? Imaging None recorded. ? ? Vitals 11/14/2019 12:30PM FOLLOW UP 30 Height Weight BMI Blood Pressure 5 ft 5 in 165 lbs 27.5 kg/m2 127/72 mm[Hg] 10/15/2019 04:00PM SPLINT INSERT Height Blood Pressure 5 ft 5 in 112/71 mm[Hg] 08/28/2019 01:00PM NEW PATIENT 60 Height Weight BMI Blood Pressure 5 ft 5 in 165 lbs 27.5 kg/m2 127/84 mm[Hg]
== END 2022-02-10 14:21 | disposition home or self-care (01) ==
LOC: ED 14:16
PROVIDERS: Emergency Provider Emergency Medicine Emergency Medical Services
DX: F41.9 Anxiety disorder, unspecified (principal)
CPT/HCPCS: 99283; 99284

== ENCOUNTER 2022-04-08 04:29 | Emergency (ER) | payer MEDICAID, SELFPAY ==
[2022-04-08 04:35] VITALS: BP 135/68; PULSE 71; RESP 16; TEMP 36.9; O2SAT 98; BMI 30.8
--- NOTE | 2022-04-08 05:22 | ED.GENADULT ---
HPI - General Adult General Date Seen: 04/08/22 Chief complaint: Extremity Pain/Injury, Lower Stated complaint: Left leg pain, unable to sleep Time Seen by Provider: 04/08/22 04:51 Source: patient Mode of arrival: ambulatory Limitations: no limitations History of Present Illness HPI narrative: Patient is a 36-year-old male who comes in at 4:30 a.m. with complaints of pain in his low back that radiates down his left leg. He tells me that this has been so severe that he could not sleep. He initially is question whether he could have a blood clot in his leg as he looked that up on the Internet and thought that his symptoms were consistent with that. He states that he did have a long car ride today although when asked this was only 1 hour in each direction. He did shovel some snow yesterday but is not currently employed. Eventually he gets around asking for some hydrocodone and I refused that request telling him that chronic pain needs to be managed through his clinic physician. As I review his epic chart he just saw his PCP Dr. Tate two weeks ago and was prescribed Flexeril. There was no discussion regarding physical therapy or the need for opiates. It looks like he saw Dr. Pizarro for [facility]. He has not had any opiates prescribed to him since last June but it appears that this back concern is chronic and not acute. He tells me that he was prescribed gabapentin at one point but never filled it. He is on Adderall and Klonopin regularly. I have offered to help him with a different anti-inflammatory and a prescription for gabapentin. He would really just like some hydrocodone out of the [facility] machine. Related Data Home Medications Medication Instructions Recorded Confirmed clonazepam 2 mg tablet 2 mg PO TID 02/10/22 02/10/22 pantoprazole 40 mg tablet,delayed 40 mg PO DAILY 02/10/22 02/10/22 release Previous Rx's Medication Instructions Recorded escitalopram oxalate 10 mg tablet 10 mg PO DAILY #30 tabs 02/10/22 (Lexapro) gabapentin 300 mg capsule 300 mg PO BID #30 caps 04/08/22 Allergies Allergy/AdvReac Type Severity Reaction Status Date / Time No Known Allergies Allergy Verified 04/08/22 04:38 Review of Systems Narrative: Patient acknowledges severe anxiety and ADD. He has some IBS symptoms and has been referred to Dr. Caldwell. He complains of chronic pain in both wrists as well as some pain in his neck that radiates into his right shoulder. He is treated for acid reflux. He was recently started on Lexapro for anxiety but it is unclear to me if he is actually taking it. Review of systems is otherwise noted to be negative. [facility] Social History Smoking Status: Never smoker Do you use any of these nicotine containing products: None How often do you have a drink containing alcohol: never AUDIT-C Alcohol total score: 0 Non-prescribed substance use: denies use service: No Exam Narrative: Exam Narrative: Vitals noted. He does not appear uncomfortable. HEENT: Conjunctiva clear. Neck is supple without adenopathy, thyromegaly, carotid bruit. Lungs: Clear to auscultation in all kathleen. No wheezes, rales, rhonchi. Heart: Regular rate and rhythm without murmur. Abdomen: Soft and nontender. No guarding, rigidity, rebound. Bowel sounds are normal. No palpable masses. Extremities: No cyanosis or edema. Good distal pulses. No warmth, redness, swelling. Homans sign is negative. Skin: No abnormalities noted of the exposed skin. He has multiple tattoos. Neurologic: Awake, alert, fully oriented. Neurologic exam is nonfocal. Straight leg raising is negative on the right. Reflexes are symmetric. He does trace some discomfort with straight leg raising in the seated position on the left that involves his posterior thigh and lateral calf. No sensory deficit in that area. He has some myofascial tightness and tenderness in the low back on the left but no palpable spasms. Const: Vital Signs, click to edit/add: Vital Signs - 24 hr 04/08/22 04:35 Temperature 98.4 F Pulse Rate [Pulse Oximeter] 71 Respiratory Rate 16 Blood Pressure [Ri ght Upper Arm] 135/68 Pulse Oximetry 98 Oxygen Delivery Me thod Room Air Course Course Hospital Course: Patient was seen and examined. I offered to treat him with Toradol, Flexeril, gabapentin. I declined his request for hydrocodone. Discussed with him that if he is going to be prescribed opiates it will need to come from his primary doctor and opiates are generally not prescribed for people on chronic benzodiazepines. We discussed physical therapy as an option and that that referral would need to come from his PCP in the clinic as well. I told him that I would send a note to doctors and letting her know that he was in the ER and was done for him. I reviewed the [facility] system and he has not had any hydrocodone since 06/25. He did request a Toradol injection and was given 60 mg IM. He was calm and reasonable with his opiate denial. Vital Signs Vital signs: Initial Vital Signs Temperature 98.4 F 04/08/22 04:35 Temperature Source Temporal Artery Scan 04/08/22 04:35 Pulse Rate 71 04/08/22 04:35 Pulse Rhythm 04/08/22 04:35 Pulse Strength 3+ Normal 04/08/22 04:35 Respiratory Rate 16 04/08/22 04:35 Blood Pressure 135/68 04/08/22 04:35 Blood Pressure Mean 90 04/08/22 04:35 Pulse Oximetry 98 04/08/22 04:35 Oxygen Delivery Method 04/08/22 04:35 Vital Signs Temperature 98.4 F 04/08/22 04:35 Pulse Rate 71 04/08/22 04:35 Respiratory Rate 16 04/08/22 04:35 Blood Pressure 135/68 04/08/22 04:35 Pulse Oximetry 98 04/08/22 04:35 Oxygen Delivery Method 04/08/22 04:35 Temperature 98.4 F 04/08/22 04:35 Pulse Rate 71 04/08/22 04:35 Respiratory Rate 16 04/08/22 04:35 Blood Pressure 135/68 04/08/22 04:35 Pulse Oximetry 98 04/08/22 04:35 Oxygen Delivery Method 04/08/22 04:35 Discharge Plan Discharge Clinical Impression: Sciatica of left side Patient Disposition: Home, Self-Care Condition: Stable Additional Instructions: Toradol 10 mg every 6 hours as needed for pain. Conttinue Tylenol 1000 mg every 6 hours as needed for pain. Flexeril 10 mg twice a day as needed for spasms. The Toradol and the Flexeril have been sent to the [facility] machine. Gabapentin 300 mg twice a day to help with nerve pain. This has been sent to your pharmacy Heat in the morning. Ice after activity. Follow up with Dr Tate to discuss referral to Physical Therapy or stronger pain meds as this cannot be done through the ED. Prescriptions: New gabapentin 300 mg capsule 300 mg PO BID Qty: 30 0RF No Action clonazepam 2 mg tablet 2 mg PO TID Label Comments: TAKE ONE TABLET BY MOUTH TWICE DAILY pantoprazole 40 mg tablet,delayed release (DR/EC) 40 mg PO DAILY Label Comments: TAKE ONE TABLET BY MOUTH ONCE DAILY escitalopram oxalate [Lexapro] 10 mg tablet 10 mg PO DAILY Qty: 30 2RF Follow Up/Referrals: Provider,Not a Local [Referring] - Stand Alone [facility]: [facility] Info Inst[facility]
== END 2022-04-08 05:39 | disposition home or self-care (01) ==
PROVIDERS: Emergency Provider Family Medicine; PCP Family Medicine
DX: M54.32 Sciatica, left side (principal)
CPT/HCPCS: 96372; 99282; 99283

== ENCOUNTER 2022-04-23 10:23 | Emergency (ER) | payer MEDICAID, SELFPAY ==
[2022-04-23 10:32] VITALS: BP 139/77; PULSE 78; RESP 18; TEMP 36; O2SAT 98
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
[2022-04-23 11:20] LABS: Appearance Urine Clear (Clear); Bilirubin Urine Negative (Negative); Blood Urine 3+ (Negative); Color Urine Yellow (Yellow); Glucose Urine Negative (Negative); Ketones Urine Negative (Negative); Leukocyte Esterase Urine Negative (Negative); Nitrite Urine Negative (Negative); Protein Urine Negative (Negative); Specific Gravity Urine >= 1.030 (1.000-1.030); Urobilinogen Urine 0.2 (0.2-1.0)
[2022-04-23 11:28] LABS: Basophils Absolute Auto 0.02 K/uL (0.00-0.30); Basophils Percent Auto 0.3 % (0.0-3.0); Eosinophils Absolute Auto 0.15 K/uL (0.00-0.50); Eosinophils Percent Auto 2.3 % (0.0-7.0); Hematocrit 45.4 % (37.0-53.0); Hemoglobin* 15.1 gm/dL (13.5-17.5); Immature Granulocytes Abs Auto 0.01 K/uL (0.00-0.30); Immature Granulocytes Pct Auto 0.2 %; Lymphocytes Absolute Auto 2.69 K/uL (0.90-2.90); Mean Corpuscular HGB Conc 33 gm/dL (32-36); Mean Corpuscular Hemoglobin 30 pg (26-34); Mean Corpuscular Volume 90 fL (80-100); Monocytes Percent Auto 5.5 % (0.0-11.0); Neutrophils Absolute Auto 3.19 K/uL (1.7-7.0); Neutrophils Percent Auto 49.7 % (42.0-72.0); Platelet Count* 186 K/uL (140-440); RDW Coefficient of Variation % 12.6 % (11.5-15.5); Red Blood Count 5.04 m/uL (4.30-5.90); White Blood Count* 6.41 K/uL (4.50-11.00)
[2022-04-23 11:29] LABS: Bacteria Urine Few; Mucus Urine Moderate; Squamous Epithelial Cell Urine Few (None-Few); WBC Urine 0-2 (0-5)
[2022-04-23 11:35] LABS: Slide Review Reflex No
[2022-04-23 11:55] LABS: Chloride* 105 mmol/L (96-114); Sodium* 142 mmol/L (135-149)
[2022-04-23 11:58] LABS: Creatinine* 0.9 mg/dL (0.5-1.5); Estimated Glomerular Filt Rate 114 ml/min
[2022-04-23 11:59] LABS: Blood Urea Nitrogen* 12 mg/dL (5-24); Calcium* 9.1 mg/dL (8.4-10.6); Carbon Dioxide* 28 mmol/L (20-32); Glucose* 105 mg/dL (60-115)
--- NOTE | 2022-04-23 12:12 | CRLHL7_ITS ---
For Patients: As a result of the Century Cures Act, medical imaging exams and procedure reports are released immediately into your electronic medical record. You may view this report before your referring provider. If you have questions, please contact your health care provider. INDICATION: Hematuria. TECHNIQUE: CT abdomen and pelvis without contrast. COMPARISON: None FINDINGS: Lower chest: Unremarkable. Liver: Moderate diffuse low-attenuation. Spleen: Unremarkable. Pancreas: Unremarkable. Gallbladder and bile ducts: Unremarkable. Kidneys: Bilateral caliceal calculi. Roughly 4-5 on the right with the 2 largest in the upper pole each roughly 3.5 x 4 mm. Roughly 6 small caliceal calculi on the left with the largest at roughly 2 mm. No hydronephrosis. No ureteral dilatation. No ureteral filling defects. Somewhat thick-walled urinary bladder although incompletely distended. Normal prostate size. Adrenal glands: Unremarkable. GI tract: Unremarkable. Appendix is normal. Vascular structures: Unremarkable. Lymph nodes: Unremarkable. Miscellaneous: Unremarkable. No free air or significant free fluid. Pelvic Organs: Unremarkable. Bones: Unremarkable for age. IMPRESSION: Moderately numerous nonobstructing caliceal calculi in each kidney. Please note that all CT scans at this facility use dose modulation, iterative reconstruction, and/or weight-based dosing when appropriate to reduce radiation dose to as low as reasonably achievable. Dictated by Renzo Burris MD @ 04/23/2022 12:55:06 PM (Electronically Signed)
== END 2022-04-23 13:28 | disposition home or self-care (01) ==
PROVIDERS: Emergency Provider Emergency Medicine Emergency Medical Services; PCP Family Medicine
DX: N20.0 Calculus of kidney (principal); R31.9 Hematuria, unspecified
CPT/HCPCS: 36415; 74176; 80048; 81001; 85025; 87086; 99284; 99285

== ENCOUNTER 2022-06-20 15:23 | Emergency (ER) | payer MEDICAID, SELFPAY ==
[2022-06-20 15:31] VITALS: BP 130/65; PULSE 79; RESP 14; TEMP 36.7; O2SAT 96
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
--- NOTE | 2022-06-20 16:40 | PC.NURSE ---
went to room with security as patient is refusing to leave, spoke to Dr Moses and made her aware, per Dr Moses she had spent great amount of time in the room explaining to him her plan, upon going to room, pt asking for more time in room, told pt he is discharged and there are multiple patients waiting for room, he states, I just need more time...I don't want to get confrontational, pt was observed walking into ER from outdoors on camera at arrival, told pt we would give him a few more minutes and pulled up pt on camera to observe, pt observed getting up from cot and removing his necklaces and placing them in his pocket, adjusting items in his pockets and observed an object in his right pocket with a handle and metal also unable to clearly see what it was, police were called and as we were on the phone with police pt ambulatory and digging in drawers and looking around room
--- NOTE | 2022-06-20 16:41 | ED_ITS ---
HPI - General Adult General Date Seen: 06/20/22 Chief complaint: Back Injury/Pain Stated complaint: Lower back/L leg pain Time Seen by Provider: 06/20/22 15:35 Source: patient, RN notes reviewed and old records reviewed Mode of arrival: ambulatory Limitations: no limitations History of Present Illness HPI narrative: Patient is a 36-year-old male who presents for evaluation of acute on chronic low back pain and left leg pain. He tells me that he has had pain in this area on and off for quite some time but it is worse over the past couple of days. No specific injury. No fevers, no weakness. He says that the pain is so bad that he cannot sleep. He told me that he is going to reestablish with a previous pain doctor, he does have a history of opioid misuse although it is been a num olga of years. He says that appointment is on June 27 then he needs pain medications to tide him over for the next week. He says he is already taking ibuprofen and Tylenol as well as a muscle relaxer and those do not work. What he did not tell me was that he had seen Dr. Harris earlier today and was prescribed buprenorphine; in fact when I brought up that appointment he specifically said that he had declined the prescription because he found out that it did not help with pain. However, according to that note, buprenorphine was prescribed. He also noted that the patient refused to provide urine for a drug screen. Related Data Home Medications Medication Instructions Recorded Confirmed clonazepam 2 mg tablet 2 mg PO TID 02/10/22 06/20/22 pantoprazole 40 mg tablet,delayed 40 mg PO DAILY 02/10/22 06/20/22 release cyclobenzaprine .ROUTE PRN 06/20/22 Previous Rx's Medication Instructions Recorded escitalopram oxalate 10 mg tablet 10 mg PO DAILY #30 tabs 02/10/22 (Lexapro) gabapentin 300 mg capsule 300 mg PO BID #30 caps 04/08/22 Allergies Allergy/AdvReac Type Severity Reaction Status Date / Time No Known Allergies Allergy Verified 06/20/22 15:40 Review of Systems Status of ROS: Reports: 10 or more systems reviewed and unremarkable except as noted in History and below PFSH PFSH Social History Smoking Status: Former smoker Do you use any of these nicotine containing products: None Second hand tobacco smoke exposure: No How often do you have a drink containing alcohol: never AUDIT-C Alcohol total score: 0 Non-prescribed substance use: denies use service: No Exam Narrative: Exam Narrative: Vital signs as noted above. In general, an alert male. Restless, speech is slightly slurred. Head: Normocephalic, atraumatic. Eyes: Pupils are equal reactive. Extraocular movements are full. Conjunctivae are normal. ENT: Mucous membranes are moist. Extremities: Well perfused. No edema. No calf tenderness. Pulses intact. Moves bilateral lower extremities without difficulty. Neurologic: Patient is alert and oriented to person and place. Speech is fluent. Face is symmetric. Moves all extremities equally. Strength equal bilaterally. Affect: Agitated. Skin: Warm and dry. Well perfused. Const: Vital Signs, click to edit/add: Vital Signs - 24 hr 06/20/22 15:31 Temperature 98.0 F Pulse Rate [Pulse Oximeter] 79 Respiratory Rate 14 Blood Pressure [Ri ght Upper Arm] 130/65 Pulse Oximetry 96 Oxygen Delivery Me thod Room Air Documenting provider has reviewed patient's vital signs: yes Course Course Hospital Course: I reviewed the patient's records. I discussed with him that typically are management for this type of problem would include steroids, muscle relaxers, and a combination of ibuprofen and Tylenol. He was clearly not interested in any of those, adamant that non would provide any relief and that he needed ?something else. I am uncomfortable providing narcotic pain medications for several reasons: 1., he was not forthcoming about his visit with Dr. Harris earlier today, and was not apparently honest about the results of that visit. He refused a drug screen, and seems slightly altered today in the ER. I did offer to provide Toradol, both an IM injection here and because he says that wears off in a half an hour, to provide a prescription for home as well. I have also offered to prescribe a prednisone taper. I put these orders in, and I put in discharge orders with the above-mentioned prescriptions. Nursing tried to discharge the patient but he refused to leave the emergency department, and his behavior escalated. When left alone in the room, on camera nursing noted that he was removing his necklaces and putting them in his pocket, and seemed to be rearranging the room as if preparing for an altercation. As he lifted his shirt to put his neck was is in his pocket, they noted a handled item and could not tell whether not it represented a firearm. Because of this, both security and police were contacted. Patient did in fact have a large knife on him, but not a firearm, the other weapon was apparently a baton. He was escorted out by police. Vital Signs Vital signs: Initial Vital Signs Temperature 98.0 F 06/20/22 15:31 Temperature Source Temporal Artery Scan 06/20/22 15:31 Pulse Rate 79 06/20/22 15:31 Respiratory Rate 14 06/20/22 15:31 Blood Pressure 130/65 06/20/22 15:31 Blood Pressure Mean 86 06/20/22 15:31 Blood Pressure Position Sitting 06/20/22 15:31 Pulse Oximetry 96 06/20/22 15:31 Oxygen Delivery Method Room Air 06/20/22 15:31 Vital Signs Temperature 98.0 F 06/20/22 15:31 Pulse Rate 79 06/20/22 15:31 Respiratory Rate 14 06/20/22 15:31 Blood Pressure 130/65 06/20/22 15:31 Pulse Oximetry 96 06/20/22 15:31 Oxygen Delivery Method Room Air 06/20/22 15:31 Temperature 98.0 F 06/20/22 15:31 Pulse Rate 79 06/20/22 15:31 Respiratory Rate 14 06/20/22 15:31 Blood Pressure 130/65 06/20/22 15:31 Pulse Oximetry 96 06/20/22 15:31 Oxygen Delivery Method Room Air 06/20/22 15:31 Discharge Plan Discharge Clinical Impression: Low back pain radiating to left leg Patient Disposition: Home, Self-Care Condition: Stable Additional Instructions: You can continue your muscle relaxer. I would recommend taking ibuprofen 400 mg plus Tylenol 1000 mg 3 times daily with food. Alternatively, you can use the prescribed Toradol. Follow-up with your pain specialist as planned. For new symptoms such as fever, return for re-evaluation. Take prednisone as follows: 3 tabs daily for 3 days, then 2 tabs daily for 3 days, then 1 tab daily for 3 days. Prescriptions: No Action gabapentin 300 mg capsule 300 mg PO BID Qty: 30 0RF cyclobenzaprine [Flexeril] .ROUTE PRN clonazepam 2 mg tablet 2 mg PO TID Patient Comments: TAKE ONE TABLET BY MOUTH TWICE DAILY pantoprazole 40 mg tablet,delayed release (DR/EC) 40 mg PO DAILY Patient Comments: TAKE ONE TABLET BY MOUTH ONCE DAILY escitalopram oxalate [Lexapro] 10 mg tablet 10 mg PO DAILY Qty: 30 2RF Follow Up/Referrals: Dilcia Tate MD [Primary Care Provider] - Stand Alone Forms: Sgrouples Info Instructions
--- NOTE | 2022-06-20 16:53 | PC.NURSE ---
police arrived as pt walking out and are talking with him in vestibule
== END 2022-06-20 16:52 | disposition home or self-care (01) ==
LOC: ED 16:29
PROVIDERS: Emergency Provider Emergency Medicine; PCP Family Medicine
DX: M54.50 Low back pain, unspecified (principal); M79.605 Pain in left leg
CPT/HCPCS: 99284

== ENCOUNTER 2023-07-06 18:01 | Outpatient (REF) | payer MEDICAID, SELFPAY ==
--- OUTSIDE RECORDS SUMMARY | 2023-07-06 18:08 | XMS_ITS | Clinical Summary ---
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 [employer] Name Role Phone None, Pcp Primary Care Provider Unavailabl e Allergies No known active allergies Medications Medication Sig Dispensed Refills Start Date End Date Status ALPRAZolam (XANAX) 1 MG tablet TAKE 1 TABLET BY MOUTH ONCE A DAY NEEDED (PT IS ONLY TO RECEIVE 10 TABS FOR 30 DAYS) 0 Active amLODIPine (NORVASC) 2.5 MG tablet Take 1 tablet (2.5 mg total) by mouth daily 0 02/22/2023 Active amphetamine-dextroa mphetamine XR (ADDERALL XR) 30 MG 24 hr capsule Take 1 capsule (30 mg total) by mouth 1 (one) time each day in the morning 0 Active buprenorphine (SUBUTEX) 8 MG TAKE 1 TABLET SUBLINGUALLY EVERY MORNING AND 1/2 TABLET EVERY EVENING FOR PAIN. TAKE FIRST, AVOID TAKING WITHIN 1-2 HOURS OF OXYCODONE. 0 Active clonazePAM (KlonoPIN) 2 MG tablet Take 1 tablet (2 mg total) by mouth 2 (two) times a day 0 Active cyclobenzaprine (FLEXERIL) 10 MG tablet Take 1 tablet (10 mg total) by mouth 2 (two) times a day if needed 0 05/04/2023 Active ondansetron (ZOFRAN) 4 MG tablet Take 1 tablet (4 mg total) by mouth every 6 (six) hours if needed 0 Active oxyCODONE (ROXICODONE) 5 MG immediate release tablet TAKE ONE TABLET BY MOUTH FOUR TIMES A DAY NEEDED FOR CHRONIC PAIN RATED 7-10/10. MAX 4/DAY. AVOID TAKING WITHIN 2 HOURS OF BUPRENORPHINE 0 Active pantoprazole (PROTONIX) 40 MG EC tablet Take 1 tablet (40 mg total) by mouth 1 (one) time each day 0 Active beclomethasone (BECONASE-AQ) 42 MCG/SPRAY nasal spray Administer 2 sprays into each nostril 2 (two) times a day Dose is for each nostril. 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 Consult [facility] [address] [place] [address] Antony Costa MD Anxiety (Primary Dx); Depression, unspecified depression type; Primary hypertension; Sore throat from Last 3 Months Social History Tobacco Use Types Packs/Day Years Used Date Smoking Tobacco: Former Cigarettes Smokeless Tobacco: Current Tobacco Cessation:Ready to Q uit: Not Asked; Counseling Given: Not Answered Comments:Nicotine pouches PHQ-2 Answer Date Recorded PHQ-9 Total Score 6 05/10/2023 Sex and Gender Information Value Date Recorded Sex Assigned at Not on file Gender Identity Not on file Sexual Orientation Not on file Last Filed Vital Signs Vital Sign Reading Time Taken Comments Blood Pressure 145/84 05/10/2023 11:12 AM RUBBER CUTTER Pulse 125 05/10/2023 11:12 AM RUBBER CUTTER Temperature 37.9 ??C (100.2 ??F) 05/10/2023 11:12 AM RUBBER CUTTER Respiratory Rate 18 05/10/2023 11:1 2 AM RUBBER CUTTER Oxygen Saturation - - Inhaled Oxygen Concentration - - Weight 80.6 kg (177 lb 11.1 oz) 024 11:12 AM RUBBER CUTTER Height 163.5 cm (5' 4.37) 05/10/2023 1 1:12 AM RUBBER CUTTER Body Mass Index 30.15 05/10/2023 11:12 AM RUBBER CUTTER Plan of Treatment Health Maintenance Due Date Last Done Comments COVID-19 Vaccine ( season) 2022 Influenza Vaccine (Season Ended) 2023 DTaP,Tdap,and Td Vaccines (9 - Td or Tdap) 10/18/2030 10/18/2020, 06/28/2018, 08/21/2017, Additional history exists HPV Vaccines Aged Out No longer eligi ble based on patient's age to complete this topic Pneumococcal Vaccine: Pediatrics (0 to 5 Years) and At-Risk Patients (6 to 64 Years) Aged Out No longer eligible based on patient's age to complete this topic Care Teams Cook Fast Food Relationship Specialty Start Date End Date None, Pcp [address] [place] [place] [address] PCP - General Cvt Tech 09/01/22
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
--- OUTSIDE RECORDS SUMMARY | 2023-07-06 18:08 | XMS_ITS | Clinical Summary ---
Author Name Unknown Organization [facility] Address [place], [place] [address] Care Team Providers Care Roll Out Manager Name Role Phone Dilcia Tate MD Primary Care Provider [phone] Faviola Machuca PROCESS TRAINER Unavailable Unavailable Allergies No known active allergies Medications Medication Sig Dispensed Refills Start Date End Date Status clonazePAM (KLONOPIN) 1 mg tabletIndications:Anxi ety Take 1 tablet by mouth up to BID and 1/2 tablet by mouth once daily 36 tablet 2 08/27/2019 Active dextroamphetamine-amph etamine (ADDERALL XR) 30 mg Extended-Release capsule Take 30 mg by mouth once daily Active ondansetron (ZOFRAN ODT) 4 mg disintegrating tabletIndications:Naus ea PLACE 1 TABLET (4 MG) ON THE TONGUE EVERY 8 HOURS IF NEEDED FOR NAUSEA/VOMITING. 10 Tablet 01/10/2022 Active hydrOXYzine HCL (ATARAX) 25 mg tabletIndications:Seas onal allergies Take 1-2 Tablets (25-50 mg) by mouth every 6 hours if needed (seasonal allergies). 30 Tablet 2 02/17/2022 Active ALPRAZolam (XANAX) 1 mg tablet TAKE TWO TABLETS BY MOUTH ONCE A DAY NEEDED. USE ONLY FOR EXTREME PANIC. MAX OF 10 TABS/MONTH. 03/21/2022 Active cholecalciferol, Vitamin D3, (Vitamin D-3) 5,000 unit tab tabletIndications:Low vitamin D level Take 1 Tablet (5,000 units) by mouth once daily. 30 Tablet 03/22/2022 Active albuterol HFA (PRO-AIR; VENTOLIN; PROVENTIL) 90 mcg/actuation inhalerIndications:Mil d intermittent asthma in adult without complication Inhale 1-2 Puffs by mouth every 4 hours if needed for Shortness Of Breath or Wheezing. 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 Use daily as needed for muscle spasm 30 Tablet 05/12/2022 Active pantoprazole (PROTONIX) 40 mg delayed-release tabletIndications:Jm roesophageal reflux disease, unspecified whether esophagitis present TAKE ONE TABLET BY MOUTH ONCE DAILY 90 Tablet 2 06/16/2022 Active oxyCODONE (ROXICODONE) 5 mg immediate release tabletIndications:Left elbow pain,Lateral epicondylitis of left elbow Take 1 Tablet (5 mg) by mouth every 6 hours if needed for Pain. 10 Tablet 08/29/2022 Active buprenorphine (SUBUTEX) subl Place 2 mg under the tongue once daily. 1 mg BID Active polyethylene glycoL (MIRALAX) 17 gram/scoop powderIndications:Abdo kurt pain, generalized Mix 1 scoop (17 g) in liquid then take by mouth once daily if needed for Constipation. 850 g 02/22/2023 Active amLODIPine (NORVASC) 2.5 mg tabletIndications:HTN (hypertension) Take 1 Tablet (2.5 mg) by mouth once daily. 90 Tablet 1 02/22/2023 Active miscellaneous medical supply (Blood Pressure Cuff) miscIndications:HTN (hypertension) 1 blood pressure cuff for home use. Check blood pressure at home. 1 Each 02/22/2023 Active fluticasone (50 mcg per actuation) nasal solution (FLONASE)Indications:C hronic rhinitis Inhale 2 Sprays to both nostrils once daily. 16 g 3 04/19/2023 Active carbamide peroxide (DEBROX) 6.5 % otic solutionIndications:Im pacted cerumen, left ear Place 5 Drops into both ears two times daily. 15 mL 05/27/2023 Active Active Problems Problem Noted Date Diagnosed Date Chronic right shoulder pain 10/24/2022 Left lateral epicondylitis 09/12/2022 Cervical radiculopathy 09/12/2022 Lateral epicondylitis of left elbow 08/05/2022 Elevated BP without diagnosis of hypertension Agitation 02/17/2022 Restless leg syndrome 02/17/2022 Chronic rhinitis 02/17/2022 Personality disorder, unspecified 05/11/2021 Fatty liver 02/11/2021 Anxiety 11/10/2017 Mild episode of recurrent major depressive disor omer 09/19/2017 Attention deficit hyperactivity disorder (ADHD) 06/01/2016 Post traumatic stress disorder 06/01/2016 Microscopic hematuria 04/05/2016 Irritable bowel syndrome 06/01/2006 Resolved Problems Problem Noted Date Diagnosed Date Resolved Date Controlled substance agreement signed 07/21/2016 05/12/2022 Overview: Signed 06/01/16 Faviola Machuca / psychiatry Moderate episode of recurren t major depressive disorder 06/01/2016 11/10/2017 Attention deficit hyperactiv ity disorder (ADHD) 05/25/2016 06/01/2016 Attention deficit hyperactiv ity disorder (ADHD), predominantly inattentive type 02/03/2015 0 06/01/2016 Anxiety 02/03/2015 06/01/2016 Uncomplicated opioid dependence 01/08/2015 05/12/2022 Overview: Dr. Harris for suboxone. Bipolar affective disorder 01/08/2015 0 06/01/2016 Cellulitis 12/27/2011 07/11/2015 Dysuria 06/13/2008 07/11/2015 Bipolar disorder, unspecified 10/09/2007 01/08/2015 Opioid type dependence, unspecified 11/07/2006 01/08/2015 Other acne 06/01/2006 05/12/2022 Encounters Date Type Department Care Team Description 05/27/2023 10:15 AM CDT Office Visit [facility] [address] [place] [address] Usha Dewey DO Ear Pain/problem (Left ear feeling plugged, voice echos, some pain starting today. Feels off balance) 05/27/2023 Travel 04/18/2023 Refill [facility] [address] [place] [address] Dilcia Tate MD Refill Request (Qnasl) 04/18/2023 Refill [facility] [address] [place] [address] Dilcia Tate MD Refill Request (Qnasl) from Last 3 Months Immunizations Name Administration Dates Next Due DTP 04/15/1988,07/17/1987,05/14/1987 ,03/02/1987 MMR 04/15/1988 Oral Polio Vaccine 04/15/1988,05/14/1987, 987 Tdap 10/18/2020,06/28/2018,08/21/2017 ,07/04/2008 Family History Medical History Relation Name Comments Allergies Sister 2 allergic to col d Relation Name Status Comments Brother Alive Father Alive Maternal Grandfather (Age old ag e) Mother Alive Paternal Grandfather (Age heart attack) Sister 1 Alive Sister 2 Social History Tobacco Use Types Packs/Day Years Used Date Smoking Tobacco: Former Cigarettes 0.1 4 0 03/06/2013 - 03/06/2017 Smokeless Tobacco: Former Snuff, Chew Tobacco Cessation:Counseling Given: Yes Alcohol Use Standard Drinks/Week Comments Not Currently 0 (1 standard drink = 0.6 oz pur e alcohol) PHQ-2 Answer Date Recorded PHQ-2 TOTAL SCORE 0 12/15/2021 Social Connections Answer Date Recorded Frequency of Communication with Friends and Fami ly 0 08/03/2022 Financial Resource Strain Answer Date R ecorded Difficulty of Paying Living Expenses 3 08/03/2022 Difficulty of Paying Living Expenses Not on file 08/03/2022 Food Insecurity Answer Date Recorded Worried About Running Out of Food in the Last Ye ar 1 08/03/2022 Transportation Needs Answer Date Record ed Lack of Transportation (Medical) 1 08/03/2022 Housing Stability Answer Date Recorded Unable to Pay for Housing in the Last Year 1 08/03/2022 Sex and Gender Information Value Date Recorded Sex Assigned at Not on file Gender Identity Not on file Sexual Orientation Not on file Obstetrics History Last Filed Vital Signs Vital Sign Reading Time Taken Comments Blood Pressure 132/62 05/27/2023 10:14 AM CDT Pulse 86 05/27/2023 10:14 AM CDT Temperature 37.2 ??C (99 ??F) 05/27/2023 10:14 AM CDT Respiratory Rate 18 05/27/2023 10:14 AM CDT Oxygen Saturation 99% 05/27/2023 10:14 AM CDT Inhaled Oxygen Concentration - - Weight 81.9 kg (180 lb 8 oz) 05/27/2023 10:14 AM CDT Height 165.1 cm (5' 5) 12/14/2022 5:09 AM CDT Body Mass Index 30.04 12/14/2022 5:09 AM CDT Plan of Treatment Health Maintenance Due Date Last Done Comments COVID-19 vaccine series ( season) 2022 Depression screening for age 12+ 12/15/2022 12/15/2021, 12/15/2021, 12/15/2021, Additional history exists BMI (ht and wt on same day) for age 18+ 05/13/2023 05/12/2022, 02/17/2022, 12/15/2021, Additional history exists Influenza for age 9-49 11/05/2023 Lipids for age 35-44 02/17/2027 02/17/2022 Tetanus booster 10/18/2030 10/18/2020, 06/05, 08/21/2017, Additional history exists Tdap Completed 10/18/2020, 06/05, 08/21/2017, Additional history exists HIV for age 15-65 Completed 02/17/2022, , 08/04/2020, Additional history exists Hepatitis C screening for age 18-79 Completed 02/17/2022, 08/04/2020, 01/31/2020, Additional history exists Pneumococcal series for age 6-64 Aged Out No longer eligible based on patient's age to complete this topic Procedures Procedure Name Priority Date/Time Associated Diagnosis Comments ANTI HIV 1/2 Routine 02/17/2022 12:37 PM [facility] Screening examination for STD (sexually transmitted disease) ANTI HCV Routine 02/17/2022 12:37 PM [facility] Screening examination for STD (sexually transmitted disease) LIPID PANEL Routine 02/17/2022 12:37 PM [facility] Lipid screening from Last 3 Months or Most Recently Relevant to Health Maintenance Results * ANTI HCV (02/17/2022 12:37 PM [facility]) HEPATITIS C ANTIBODY Non-React christina Non-React christina 02/19/2022 9:21 PM [facility] Comment:Antibodies to HCV no t detected; does not exclude the possibility of exposure to HCV. Blood BLOOD SPECIMEN / Unknown Venipuncture / Unknown 02/17/2022 12:37 PM [facility] ICER 02/17/2022 12:39 PM [facility] Dilcia Tate MD [facility] [address] [place] [address], [place] * ANTI HIV 1/2 (02/17/2022 12:37 PM [facility] ICER) [facility] HIV-1/HIV-2 ANTIBODY Non-Reacti ve Non-Reacti ve 02/19/2022 4:39 PM [facility] Comment:HIV-1 p24 and HIV-1/ HIV-2 Ab not detected. Blood BLOOD SPECIMEN / Unknown Venipuncture / Unknown 02/17/2022 12:37 PM [facility]ER 02/17/2022 12:39 PM [facility] Dilcia Tate MD [facility] [address] [place] [address], [place] * (ABNORMAL) LIPID PANEL (02/17/2022 12:37 PM [facility]ER) [facility] CHOLESTEROL,TOTAL 198 100 - 199 mg/dL 02/19/2022 4:12 PM [facility] TRIGLYCERIDES 211(H) <150 mg/dL 02/19/2022 4:12 PM [facility] HDL CHOLESTEROL 41 >40 mg/dL 4:12 PM [facility] NON-HDL CHOLESTEROL 157(H) <145 mg/dl 02/19/2022 4:12 PM [facility] CHOL/HDL RATIO 4.83(H) <4.50 02/19/2022 4:12 PM [facility] LDL CHOLESTEROL 115 <=130 mg/dL 02/19/2022 4:12 PM [facility] VLDL CHOLESTEROL 42(H) <=30 mg/dL 02/19/2022 4:12 PM [facility] PROVIDER ORDERED STATUS RANDOM 02/19/2022 4:12 PM [facility] Blood BLOOD SPECIMEN / Unknown Venipuncture / Unknown 02/17/2022 12:37 PM [facility] 02/17/2022 12:39 PM [facility] Dilcia Tate MD CHEMISTRY [facility] [address] [place] [address], from Last 3 Months or Most Recently Relevant to Health Maintenance Advance Directives * Full Code (Latest Code Status on File) Date Activated Date Inactivated Comments 06/21/2021 7:19 AM 06/21/2021 2:05 PM Question Answer Comments Code Status Discussion: Reviewed Preferences * Full Code Date Activated Date Inactivated Comments 05/31/2021 12:53 PM 05/31/2021 5:06 PM Question Answer Comments Code Status Discussion: Reviewed Preferences * Full Code Date Activated Date Inactivated Comments 12/27/2011 11:50 AM 12/28/2011 2:15 PM Care Teams Roll Out Manager Relationship Specialty Start Date End Date Dilcia Tate MD [address] [address] PCP - General Family Practice 04/04/16 Faviola Machuca NP [address] [address] [address] Psychiatry Nurse Practitioner 06/20/16
--- OUTSIDE RECORDS SUMMARY | 2023-07-06 18:08 | XMS_ITS | Encounter Summary ---
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 Name Role Phone None, Pcp Primary Care Provider Unavailabl e Reason for Referral * Consultation (Routine) - Closed Specialty Diagnoses / Procedures Referred By Contac t Referred To Contact Psychiatry / Psychiatry & Psychology Diagnoses Anxiety Depression, unspecified depression type Antony Costa MD [address] [place] [phone] Psychiatry/Psycholog y [address] [place] [id number] Referral ID Status Reason Start Date Expiration Date V isits Requested Visits Authorized [id number] Closed Specialty Services Required 05/10/2023 05/09/2024 1 1 Scheduling Instructions Staff from this department will contact the patient to schedule an appointment. ROOM ATTENDANT Reason for Visit * Reason Comments Med Management Encounter Details Date Type Department Care Team ([facility] st Contact Info) Description 05/10/2023 10:40 AM HOT ROOM ATTENDANT Consult [facility] [address] [place] [id number] Antony Costa MD [address] [place] [phone] Anxiety (Primary Dx); Depression, unspecified depression type; Primary hypertension; Sore throat Social History Tobacco Use Types Packs/Day Years Used Date Smoking Tobacco: Former Cigarettes Smokeless Tobacco: Current Tobacco Cessation:Ready to Q uit: Not Asked; Counseling Given: Not Answered Comments:Nicotine pouches PHQ-2 Answer Date Recorded PHQ-9 Total Score 6 05/10/2023 Sex and Gender Information Value Date Recorded Sex Assigned at Not on file Gender Identity Not on file Sexual Orientation Not on file documented as of this encounter Last Filed Vital Signs Vital Sign Reading Time Taken Comments Blood Pressure 145/84 05/10/2023 11:12 AM HOT ROOM ATTENDANT Pulse 125 05/10/2023 11:12 AM HOT ROOM ATTENDANT Temperature 37.9 ??C (100.2 ??F) 05/10/2023 11:12 AM HOT ROOM ATTENDANT Respiratory Rate 18 05/10/2023 11:1 2 AM HOT ROOM ATTENDANT Oxygen Saturation - - Inhaled Oxygen Concentration - - Weight 80.6 kg (177 lb 11.1 oz) 024 11:12 AM HOT ROOM ATTENDANT Height 163.5 cm (5' 4.37) 05/10/2023 1 1:12 AM HOT ROOM ATTENDANT Body Mass Index 30.15 05/10/2023 11:12 AM HOT ROOM ATTENDANT documented in this encounter Progress Notes * Antony Costa MD - 05/10/2023 10:40 AM CST Subjective Patient ID: Tarik Adhikari is a 37 y.o. male. Chief Complaint Patient presents with Med Management Medical management History of Present Illness HPI New patient to [facility]. Patient presents with several different concerns. History of anxiety. Chronic pain. Attention deficit disorder. Hypertension. Also acute concerns regarding sore throat. Patient is on SSI. Patient reports severe anxiety. PTSD. Treated with clonazepam and at times alprazolam. Reviewed PDMP. Patient currently does have active prescriptions through provider in [place]. Patient concerned may not be able to continue with current provider. Not totally clear of reasons. For chronic pain patient is managed with a combination of buprenorphine and oxycodone. This is through a pain clinic in [facility]. History of hypertension. Patient taking low-dose amlodipine. Blood pressure today not controlled. 145/84. Discussed with patient. Consider increasing amlodipine. Patient ill for the past several days with sore throat. Patient does have fever. Some ear pain as well. Review of Systems Review of Systems Per the history of present illness. The patient denied any other active medical problems or concerns. The remainder of the review of systems was negative. Allergies Patient has no known allergies. Medications Current Outpatient Medications: amLODIPine (NORVASC) 2.5 MG tablet, Take 1 tablet (2.5 mg total) by mouth daily, Disp: , Rfl: cyclobenzaprine (FLEXERIL) 10 MG tablet, Take 1 tablet (10 mg total) by mouth 2 (two) times a day if needed, Disp: , Rfl: ALPRAZolam (XANAX) 1 MG tablet, TAKE 1 TABLET BY MOUTH ONCE A DAY NEEDED (PT IS ONLY TO RECEIVE 10 TABS FOR 30 DAYS), Disp: , Rfl: amphetamine-dextroamphetamine XR (ADDERALL XR) 30 MG 24 hr capsule, Take 1 capsule (30 mg total) bymouth 1 (one) time each day in the morning, Disp: , Rfl: beclomethasone (BECONASE-AQ) 42 MCG/SPRAY nasal spray, Administer 2 sprays into each nostril 2 (two) times a day Dose is for each nostril., Disp: , Rfl: buprenorphine (SUBUTEX) 8 MG, TAKE 1 TABLET SUBLINGUALLY EVERY MORNING AND 1/2 TABLET EVERY EVENINGFOR PAIN. TAKE FIRST, AVOID TAKING WITHIN 1-2 HOURS OF OXYCODONE., Disp: , Rfl: cefdinir (OMNICEF) 300 MG capsule, Take 1 capsule (300 mg total) by mouth 2 (two) times a day for 10 days, Disp: 20 capsule, Rfl: 0 clonazePAM (KlonoPIN) 2 MG tablet, Take 1 tablet (2 mg total) by mouth 2 (two) times a day, Disp: ,Rfl: ondansetron (ZOFRAN) 4 MG tablet, Take 1 tablet (4 mg total) by mouth every 6 (six) hours if needed, Disp: , Rfl: oxyCODONE (ROXICODONE) 5 MG immediate release tablet, TAKE ONE TABLET BY MOUTH FOUR TIMES A DAY NEEDED FOR CHRONIC PAIN RATED 7-10/10. MAX 4/DAY. AVOID TAKING WITHIN 2 HOURS OF BUPRENORPHINE, Disp: , Rfl: pantoprazole (PROTONIX) 40 MG EC tablet, Take 1 tablet (40 mg total) by mouth 1 (one) time each day, Disp: , Rfl: The following portions of the patient's chart were reviewed in this encounter and updated as appropriate: Tobacco Allergies Meds Problems Med Hx Surg Hx Fam Hx Objective Physical Exam Vital signs are as per the chart Physical examination in general patient pleasant no apparent distress Skin clear Head is normcephalic, atraumatic Eyes conjunctivae clear ENT tympanic membranes translucent, good landmarks bilaterally. Oropharnyx is hyperemic Neck supple Lymph no significant cervical or supraclavicular adenopathy Heart regular rhythm without murmurs gallops or rubs Lungs clear to auscultation bilaterally Assessment/Plan Diagnoses and all orders for this visit: Anxiety - Ambulatory referral to [facility] Psychiatry & Psychology Depression, unspecified depression type - Ambulatory referral to [facility] Psychiatry & Psychology Primary hypertension Sore throat - cefdinir (OMNICEF) 300 MG capsule; Take 1 capsule (300 mg total) by mouth 2 (two) times a day for10 days Explained to patient I believe best course of action would be to continue with current prescriber for the clonazepam and intermittent alprazolam. I am not willing to write those prescriptions for patient. After some discussion psychiatry consultation requested. For chronic pain patient will continue with [facility] pain clinic. For now patient declined increasing amlodipine. Recommend continue to monitor blood pressure carefully. Given fever and sore throat patient prescribed cefdinir as above. documented in this encounter Plan of Treatment Scheduled Referrals Name Type Priority Associated Diagnoses Orde r Schedule Ambulatory referral to [facility] Psychiatry & Psychology Outpatient Referral Routine Anxiety Depression, unspecified depression type Ordered: 05/10/2023 documented as of this encounter Visit Diagnoses Diagnosis Anxiety- Primary Anxiety state, unspecified Depression, unspecified depression type Primary hypertension Unspecified essential hypertension Sore throat Acute pharyngitis documented in this encounter Care Teams Concrete Mixer Truck Driver Relationship Specialty Start Date End Date None, Pcp [address] [place] [phone] PCP - General Biomedical Engineering Supervisor 09/01/22 documented as of this encounter
[2023-07-06 18:38] LABS: Basophils Absolute Auto 0.01 K/uL (0.00-0.30); Basophils Percent Auto 0.2 % (0.0-3.0); Eosinophils Absolute Auto 0.16 K/uL (0.00-0.50); Eosinophils Percent Auto 2.5 % (0.0-7.0); Hematocrit 43.4 % (37.0-53.0); Hemoglobin* 14.3 gm/dL (13.5-17.5); Immature Granulocytes Abs Auto 0.01 K/uL (0.00-0.30); Immature Granulocytes Pct Auto 0.2 %; Lymphocytes Absolute Auto 2.63 K/uL (0.90-2.90); Lymphocytes Percent Auto 41.1 % (20-44); Mean Corpuscular HGB Conc 33 gm/dL (32-36); Mean Corpuscular Hemoglobin 30 pg (26-34); Mean Corpuscular Volume 91 fL (80-100); Monocytes Percent Auto 7.2 % (0.0-11.0); Neutrophils Absolute Auto 3.13 K/uL (1.7-7.0); Neutrophils Percent Auto 48.8 % (42.0-72.0); Platelet Count* 215 K/uL (140-440); RDW Coefficient of Variation % 13.3 % (11.5-15.5); Red Blood Count 4.75 m/uL (4.30-5.90)
[2023-07-06 18:58] LABS: Chloride* 99 mmol/L (96-114)
[2023-07-06 18:59] LABS: Albumin* 4.7 g/dL (3.3-5.0); Sodium* 138 mmol/L (135-149)
[2023-07-06 19:02] LABS: Alkaline Phosphatase* 46 U/L (40-150); Anion Gap 6 mEq/L (7-15); Aspartate Amino Transferase* 33 U/L (12-35); Bilirubin Total* 0.6 mg/dL (0.1-1.5); Carbon Dioxide* 33 mmol/L (20-32); Cholesterol* 196 mg/dL (90-199); Creatinine* 0.7 mg/dL (0.5-1.5); Estimated Glomerular Filt Rate 122 ml/min; Total Protein* 7.7 g/dL (6.0-8.3)
[2023-07-06 19:03] LABS: Alanine Aminotransferase* 44 U/L (4-50); Blood Urea Nitrogen* 15 mg/dL (5-24); Glucose* 107 mg/dL (60-115); HDL Cholesterol* 52 mg/dL (>=40); LDL Cholesterol Calculated 102 mg/dL (<100); Slide Review Reflex No; Triglycerides* 209 mg/dL (40-149)
[2023-07-06 19:20] LABS: Vitamin D 25 Hydroxy* 40 ng/mL (30-80)
[2023-07-06 19:21] LABS: C Reactive Protein* < 0.5 mg/dL (0.5-1.0)
[2023-07-06 19:28] LABS: Hemoglobin A1C* 5.8 % (0-5.6)
[2023-07-06 19:53] LABS: Vitamin B12* 472 pg/mL (243-894)
[2023-07-09 11:56] LABS: Testosterone, Adult Male 182 ng/dL (300-1080)
== END 2023-07-06 18:02 | disposition home or self-care (01) ==
LOC: LAB 18:01
PROVIDERS: PCP Family Medicine; Visit Provider Psychiatry & Neurology Psychiatry
DX: F90.2 Attention-deficit hyperactivity disorder, combined type (principal); F41.1 Generalized anxiety disorder; F43.12 Post-traumatic stress disorder, chronic
CPT/HCPCS: 36415; 80053; 80061; 82306; 82607; 83036; 84403; 84443; 85025; 86140